=== PATIENT | female | born 1960 | race Caucasian/White ===

== ENCOUNTER 2021-09-01 11:41 | Emergency (ER) | payer OTHER, SELFPAY ==
--- NOTE | ~2021-09-01 | XR_ITS ---
EXAMINATION: XR CHEST CLINICAL INFORMATION: SOB. COMPARISON: Chest 11/24/2006 TECHNIQUE: Frontal view of the chest was obtained. FINDINGS: No significant abnormality is noted involving the heart, lungs, mediastinum, bony thorax or soft tissues. XR/XR chest 1V IMPRESSION: Unremarkable chest examination.
[2021-09-01 11:53] VITALS: BP 141/83; PULSE 91; RESP 16; TEMP 36.7; O2SAT 99; BMI 30.9
--- NOTE | 2021-09-01 13:40 | ED_ITS ---
HPI - SOB/Dyspnea General Chief Complaint: Upper Respiratory Symptoms <TANNER Salamanca - Last Filed: 09/01/21 18:21> Stated Complaint: diff breathing <TANNER Salamanca - Last Filed: 09/01/21 18:21> Time Seen by Provider: 09/01/21 13:30 <TANNER Salamanca - Last Filed: 09/01/21 18:21> Source: patient <TANNER Salamanca - Last Filed: 09/01/21 18:21> Mode of arrival: ambulatory <TANNER Salamanca - Last Filed: 09/01/21 18:21> Limitations: no limitations <TANNER Salamanca - Last Filed: 09/01/21 18:21> History of Present Illness HPI Narrative: 60-year-old female with history of bipolar disorder, active smoker 1ppd for 30+ years presenting to the ER with shortness of breath for last 3 days, worsening today. She also reports some chills as well. She feels like she is having an anxiety attack. She feels like she is wheezing and her breathing is loud. She uses 1 inhaler at home but does not know the name. She has never been diagnosed with asthma or COPD but she is a long-time smoker. She reports a dry cough with no production of phlegm. She has had no fevers but reports chills today. She is very anxious. She is vaccinated for COVID-19 with Paul and Paul shot back in January. <TANNER Salamanca - Last Filed: 09/01/21 18:21> elicited complaint: shortness of breath <TANNER Salamanca - Last Filed: 09/01/21 18:21> Pertinent past history: other (Active smoker with probable underlying COPD) <TANNER Salamanca - Last Filed: 09/01/21 18:21> Onset (ago): day(s) (3) <TANNER Salamanca - Last Filed: 09/01/21 18:21> Timing: constant <TANNER Salamanca - Last Filed: 09/01/21 18:21> Severity: severe <TANNER Salamanca - Last Filed: 09/01/21 18:21> Exacerbating factors: exertion <TANNER Salamanca Last Filed: 09/01/21 18:21> Relieving factors: upright position <TANNER Salamanca Last Filed: 09/01/21 18:21> Associated symptoms: cough, wheezing and chest congestion <TANNER Salamanca Last Filed: 09/01/21 18:21> Treatment prior to arrival: none <TANNER Salamanca Last Filed: 09/01/21 18:21> Related Data Home oxygen amount: none <TANNER Salamanca Last Filed: 09/01/21 18:21> Home Medications: Home Medications Medication Instructions Recorded Confirmed benztropine 0.5 mg tablet 0.5 mg PO DAILY 09/01/21 09/01/21 duloxetine 60 mg capsule,delayed 60 mg PO BID 09/01/21 09/01/21 release sprinkle lamotrigine 200 mg tablet 200 mg PO DAILY 09/01/21 09/01/21 trazodone 100 mg tablet 200 mg PO BEDTIME 09/01/21 09/01/21 Previous Rx's Medication Instructions Recorded albuterol sulfate 90 mcg/actuation 1 inh INHALATION QID PRN #6.7 g 09/01/21 aerosol inhaler amoxicillin 875 mg-potassium 1 tab PO BID #14 tab 09/01/21 clavulanate 125 mg tablet (Augmentin) lorazepam 1 mg tablet (Ativan) 1 mg PO BID PRN #5 tab 09/01/21 prednisone 10 mg tablets in a dose 10 mg PO PER PKG DIR #48 ea 09/01/21 pack <TANNER Salamanca Last Filed: 09/01/21 18:21> Allergies/Adverse Reactions: Allergies Allergy/AdvReac Type Severity Reaction Status Date / Time Unable to Assess Allergy Unverified 09/01/21 13:30 <TANNER Salamanca Last Filed: 09/01/21 18:21> Review of Systems Review of Systems: Constitutional: No Fever, No Chills ENT/Mouth: No sore throat, No Rhinorrhea, No Swallowing Difficulty Cardiovascular: No Chest Pain, + SOB, No Orthopnea, No Edema Respiratory: + Cough, No Sputum, + Wheezing, + dyspnea Gastrointestinal: No Nausea, No Vomiting, No Diarrhea, No abdominal Pain Genitourinary: No Dysuria, No Urinary Frequency, No Hematuria Musculoskeletal: No joint pain, No Myalgias Skin: No Skin Lesions, No rash Neuro: No Weakness, No Numbness, No Dizziness, No Headache Psych: + Anxiety/Panic, No Depression Heme/Lymph: No Bruising, No Lymphadenopathy Endocrine: No Polyuria, No Polydipsia <TANNER Salamanca - Last Filed: 09/01/21 18:21> [facility] Social History Social History: Social History Advance Directives: No Advance Directives Information Provided: No Patient : No <TANNER Salamanca - Last Filed: 09/01/21 18:21> Physical Exam Vital Signs: Vital Signs: Last Vital Signs Temp 98.0 F 09/01/21 11:53 Pulse 73 09/01/21 14:55 Resp 20 09/01/21 14:55 BP 141/83 H 09/01/21 11:53 Pulse Ox 99 09/01/21 11:53 BMI result Body Mass Index 30.9 <TANNER Salamanca - Last Filed: 09/01/21 18:21> Vital Signs: Last Vital Signs Temp 98.0 F 09/01/21 11:53 Pulse 73 09/01/21 14:55 Resp 20 09/01/21 14:55 BP 141/83 H 09/01/21 11:53 Pulse Ox 99 09/01/21 11:53 BMI result Body Mass Index 30.9 <Yasmani Osullivan MD - Last Filed: 09/21/21 07:02> Appearance: Alert. Oriented X3. Moderate acute distress, audible wheezing. Eyes: Pupils equal, round and reactive to light. ENT: Pharynx normal. Neck: Normal inspection. Neck supple. CVS: Normal heart rate and rhythm. Pulses normal. Respiratory: Moderate respiratory distress. Breath sounds with diffuse expiratory wheezes throughout, scattered rhonchi. Respiratory rate high 20s. Able to speak in 3-4 word sentences. Abdomen: Obses, Soft and nontender. +BS x4 Skin: Skin warm and dry. Normal skin color. Normal skin turgor. No rashes. Extremities: No lower extremity edema. No calf tenderness. Neuro: Oriented X 3. No motor deficit. No sensory deficit. <TANNER Salamanca - Last Filed: 09/01/21 18:21> Course Course Course Narrative: 60-year-old lady long-time smoker with history of bipolar and anxiety who presents to the ER with shortness of breath and wheezing for the last 3 days. On arrival she is tachypneic and having a difficult time breathing. She is anxious. She has diffuse wheezing throughout. Will give a dose of oral steroids and get respiratory to give her an hour long nebulizer treatment for bronchodilation. Chest x-ray is clear for no pneumonia and her COVID test is negative. Will reassess and monitor closely. She may require admission to the hospital if no improvement. <TANNER Salamanca Last Filed: 09/01/21 18:21> Reevaluation(s) Reevaluation #1: After the nebulizer treatment patient was very anxious and tremulous. She did not like the way the nebulizer made her feel. Her lung sounds have improved significantly but she is very anxious. Will give a dose of oral Ativan and reassess. Will get lab workup an EKG given she may require admission. <TANNER Salamanca Last Filed: 09/01/21 18:21> Reevaluation #2: Patient was able to rest after Ativan. Her breath sounds remain improved and she is no longer working to breathe. Her troponin is negative and BNP is normal. The rest of her labs are pending and likely hemolyzed. She does not want them to be redrawn. At this time she would like to be discharged home with oral therapy for presumed COPD exacerbation. She agrees to follow-up with her primary care doctor early next week and she was instructed to come back to the emergency room if she has return in her increased work of breathing. Patient expressed understanding and is stable for discharge home at this time. <TANNER Salamanca Last Filed: 09/01/21 18:21> MDM - SOB/Dyspnea Differential Diagnosis Differential diagnosis: Likely acute exacerbation of chronic obstructive airways disease, congestive heart failure, pneumonia, asthma with exacerbation, pulmonary embolism, pleural effusion, sleep apnea and anemia <TANNER Salamanca Last Filed: 09/01/21 18:21> Medical Records Attestation: I reviewed the patient's medical records. <TANNER Salamanca Last Filed: 09/01/21 18:21> Lab Data Attestation: I reviewed the patient's lab results. <TANNER Salamanca - Last Filed: 09/01/21 18:21> Result diagrams: : 09/01/21 16:36 09/01/21 16:36 <TANNER Salamanca - Last Filed: 09/01/21 18:21> Labs: Lab Results 09/01/21 09/01/21 09/01/21 Range/Units 13:48 16:36 16:36 WBC 10.3 (4.8-10.8) X10*3/uL RBC 6.00 H (4.20-5.50) X10*6/uL Hgb 12.8 (12.0-16.0) g/dl Hct 39.7 (37.0-47.0) % MCV 66.2 L (80.0-98.0) fL MCH 21.3 L (27.0-33.0) pg MCHC 32.2 (31.0-35.0) g/dl RDW 15.1 (11.0-16.0) % Plt Count 391 (160-400) X10*3/uL MPV 9.4 (9.4-12.3) fL Immature Gran % (Auto) 0.4 (0.0-0.4) % Neut % (Auto) 78.1 H (45-73) % Lymph % (Auto) 17.9 L (20-40) % [place] % (Auto) 3.0 (2-11) % Eos % (Auto) 0.2 (0-4) % Baso % (Auto) 0.4 (0-2) % Lymph # (Auto) 1.9 (1.2-4.9) X10*3/uL [place] # (Auto) 0.3 (0.1-1.2) X10*3/uL Eos # (Auto) 0.0 (0.0-0.4) X10*3/uL Baso # (Auto) 0.0 (0.0-0.2) X10*3/uL Abs Immat Gran (auto) 0.04 H (0.00-0.03) X10*3/uL Absolute Neuts (auto) 8.1 (2.0-8.3) x10*3/uL Absolute Nucleated RBC 0.000 (0.0-0.012) X10*3/uL Nucleated RBC % (auto) 0.0 (0.0-0.2) /100WBC Sodium Cancelled Potassium Cancelled Chloride Cancelled Carbon Dioxide Cancelled Anion Gap Cancelled BUN Cancelled Creatinine Cancelled Estim Creat Clear Calc Cancelled Estimated GFR Cancelled Random Glucose Cancelled Calcium Cancelled Magnesium Cancelled Total Bilirubin Cancelled Direct Bilirubin Cancelled AST Cancelled ALT Cancelled Alkaline Phosphatase Cancelled Troponin I High Sens (<3.5-17.0) ng/L B-Natriuretic Peptide (<100) pg/mL Total Protein Cancelled Albumin Cancelled COVID-19 (YULISSA) Negative (Negative) COVID-19 Clin Com See Note 09/01/21 Range/Units 16:36 WBC (4.8-10.8) X10*3/uL RBC (4.20-5.50) X10*6/uL Hgb (12.0-16.0) g/dl Hct (37.0-47.0) % MCV (80.0-98.0) fL MCH (27.0-33.0) pg MCHC (31.0-35.0) g/dl RDW (11.0-16.0) % Plt Count (160-400) X10*3/uL MPV (9.4-12.3) fL Immature Gran % (Auto) (0.0-0.4) % Neut % (Auto) (45-73) % Lymph % (Auto) (20-40) % [place] % (Auto) (2-11) % Eos % (Auto) (0-4) % Baso % (Auto) (0-2) % Lymph # (Auto) (1.2-4.9) X10*3/uL [place] # (Auto) (0.1-1.2) X10*3/uL Eos # (Auto) (0.0-0.4) X10*3/uL Baso # (Auto) (0.0-0.2) X10*3/uL Abs Immat Gran (auto) (0.00-0.03) X10*3/uL Absolute Neuts (auto) (2.0-8.3) x10*3/uL Absolute Nucleated RBC (0.0-0.012) X10*3/uL Nucleated RBC % (auto) (0.0-0.2) /100WBC Sodium Potassium Chloride Carbon Dioxide Anion Gap BUN Creatinine Estim Creat Clear Calc Estimated GFR Random Glucose Calcium Magnesium Total Bilirubin Direct Bilirubin AST ALT Alkaline Phosphatase Troponin I High Sens < 3.5 (<3.5-17.0) ng/L B-Natriuretic Peptide 22 (<100) pg/mL Total Protein Albumin COVID-19 (YULISSA) (Negative) COVID-19 Clin Com <TANNER Salamanca - Last Filed: 09/01/21 18:21> Lab Results 09/01/21 09/01/21 09/01/21 Range/Units 13:48 16:36 16:36 WBC 10.3 (4.8-10.8) X10*3/uL RBC 6.00 H (4.20-5.50) X10*6/uL Hgb 12.8 (12.0-16.0) g/dl Hct 39.7 (37.0-47.0) % MCV 66.2 L (80.0-98.0) fL MCH 21.3 L (27.0-33.0) pg MCHC 32.2 (31.0-35.0) g/dl RDW 15.1 (11.0-16.0) % Plt Count 391 (160-400) X10*3/uL MPV 9.4 (9.4-12.3) fL Immature Gran % (Auto) 0.4 (0.0-0.4) % Neut % (Auto) 78.1 H (45-73) % Lymph % (Auto) 17.9 L (20-40) % [place] % (Auto) 3.0 (2-11) % Eos % (Auto) 0.2 (0-4) % Baso % (Auto) 0.4 (0-2) % Lymph # (Auto) 1.9 (1.2-4.9) X10*3/uL [place] # (Auto) 0.3 (0.1-1.2) X10*3/uL Eos # (Auto) 0.0 (0.0-0.4) X10*3/uL Baso # (Auto) 0.0 (0.0-0.2) X10*3/uL Abs Immat Gran (auto) 0.04 H (0.00-0.03) X10*3/uL Absolute Neuts (auto) 8.1 (2.0-8.3) x10*3/uL Absolute Nucleated RBC 0.000 (0.0-0.012) X10*3/uL Nucleated RBC % (auto) 0.0 (0.0-0.2) /100WBC Sodium Cancelled Potassium Cancelled Chloride Cancelled Carbon Dioxide Cancelled Anion Gap Cancelled BUN Cancelled Creatinine Cancelled Estim Creat Clear Calc Cancelled Estimated GFR Cancelled Random Glucose Cancelled Calcium Cancelled Magnesium Cancelled Total Bilirubin Cancelled Direct Bilirubin Cancelled AST Cancelled ALT Cancelled Alkaline Phosphatase Cancelled Troponin I High Sens (<3.5-17.0) ng/L B-Natriuretic Peptide (<100) pg/mL Total Protein Cancelled Albumin Cancelled COVID-19 (YULISSA) Negative (Negative) COVID-19 Clin Com See Note 09/01/21 Range/Units 16:36 WBC (4.8-10.8) X10*3/uL RBC (4.20-5.50) X10*6/uL Hgb (12.0-16.0) g/dl Hct (37.0-47.0) % MCV (80.0-98.0) fL MCH (27.0-33.0) pg MCHC (31.0-35.0) g/dl RDW (11.0-16.0) % Plt Count (160-400) X10*3/uL MPV (9.4-12.3) fL Immature Gran % (Auto) (0.0-0.4) % Neut % (Auto) (45-73) % Lymph % (Auto) (20-40) % [place] % (Auto) (2-11) % Eos % (Auto) (0-4) % Baso % (Auto) (0-2) % Lymph # (Auto) (1.2-4.9) X10*3/uL [place] # (Auto) (0.1-1.2) X10*3/uL Eos # (Auto) (0.0-0.4) X10*3/uL Baso # (Auto) (0.0-0.2) X10*3/uL Abs Immat Gran (auto) (0.00-0.03) X10*3/uL Absolute Neuts (auto) (2.0-8.3) x10*3/uL Absolute Nucleated RBC (0.0-0.012) X10*3/uL Nucleated RBC % (auto) (0.0-0.2) /100WBC Sodium Potassium Chloride Carbon Dioxide Anion Gap BUN Creatinine Estim Creat Clear Calc Estimated GFR Random Glucose Calcium Magnesium Total Bilirubin Direct Bilirubin AST ALT Alkaline Phosphatase Troponin I High Sens < 3.5 (<3.5-17.0) ng/L B-Natriuretic Peptide 22 (<100) pg/mL Total Protein Albumin COVID-19 (YULISSA) (Negative) COVID-19 Clin Com <Yasmani Osullivan MD - Last Filed: 09/21/21 07:02> ECG Data Attestation: I personally reviewed and interpreted this ECG as follows: <TANNER Salamanca - Last Filed: 09/01/21 18:21> ECG interpretation date: 09/01/21 <TANNER Salamanca - Last Filed: 09/01/21 18:21> ECG interpretation time: 18:17 <TANNER Salamanca - Last Filed: 09/01/21 18:21> Interpretation: Normal sinus rhythm, heart rate 99 beats per minute, normal IA interval, poor R-wave progression, low voltage QRS, Q-waves present in leads 3 and AVF. Prolonged QTC 508 MS, no ST segment elevations or depressions. No STEMI <TANNER Salamanca - Last Filed: 09/01/21 18:21> Critical Care Time Critical Care Time Critical Care Time: Yes <TANNER Salamanca - Last Filed: 09/01/21 18:21> Total Critical Care Time: 36 <TANNER Salamanca - Last Filed: 09/01/21 18:21> Attestation: I have personally provided critical care time exclusive of time spent on separately billable procedures. Time includes review of lab data, radiology results, frequent bedside reassessments, and monitoring for potential decompensation. Intervention performed as documented. <TANNER Salamanca - Last Filed: 09/01/21 18:21> Discharge Plan Discharge Clinical Impression: Bronchitis <TANNER Salamanca Last Filed: 09/01/21 18:21> Patient Disposition: Home, Self-Care <TANNER Salamanca Last Filed: 09/01/21 18:21> Instructions: Acute Bronchitis (ED), COPD (Chronic Obstructive Pulmonary Disease) (ED) <TANNER Salamanca Last Filed: 09/01/21 18:21> Additional Instructions: Your chest x-ray did not show any evidence of pneumonia. You were negative for COVID-19. Your lab workup was reassuring. Your being treated for bronchitis and acute COPD exacerbation. Take the prescribed steroids as directed, 1st dose starting tomorrow. Complete the entire course. Recommend using albuterol inhaler 2 pumps every 2-4 hours while your acutely ill. Recommend [id number] Mucinex 1200 mg 2 times a day for the next 5 days. Rest and stay hydrated. Follow up with your doctor early next week. If you develop new or worsening symptoms call 911 or come back to the ER for further evaluation. <TANNER Salamanca Last Filed: 09/01/21 18:21> Prescriptions: New prednisone 10 mg tablets,dose pack 10 mg PO PER PKG DIR Qty: 48 RF: 0 amoxicillin-pot clavulanate [Augmentin] 875-125 mg tablet 1 tab PO BID Qty: 14 RF: 0 lorazepam [Ativan] 1 mg tablet 1 mg PO BID PRN (Reason: anxiety) Qty: 5 RF: 0 albuterol sulfate 90 mcg/actuation HFA aerosol inhaler 1 inh inhalation QID PRN (Reason: shortness of breath or wheezing) Qty: 6.7 RF: 0 No Action benztropine 0.5 mg Tablet 0.5 mg PO DAILY RF: 0 lamotrigine 200 mg Tablet 200 mg PO DAILY RF: 0 duloxetine 60 mg Capsule, Delayed Rel Sprinkle 60 mg PO BID RF: 0 trazodone 100 mg Tablet 200 mg PO BEDTIME RF: 0 <TANNER Salamanca Last Filed: 09/01/21 18:21> Referrals: Daljit Irby MD [Primary Care Provider] - 3 days (f/u COPD exacerbation) <TANNER Salamanca Last Filed: 09/01/21 18:21> Stand Alone Forms: Work/School Release <TANNER Salamanca - Last Filed: 09/01/21 18:21> Interventions: ED Discharge Assessment Last Done: 09/01/21 18:53 <TANNER Salamanca - Last Filed: 09/01/21 18:21> Discharge Date/Time: 09/01/21 18:55 <TANNER Salamanca - Last Filed: 09/01/21 18:21>
[2021-09-01 14:08] LABS: COVID-19 Test Negative (Negative)
[2021-09-01] MEDS: predniSONE 20 MG TABLET 60 MG PO (14:31)
[2021-09-01] MEDS: Albuterol Sulfate (0.083%) 2.5 MG/3 ML VIAL.NEB 10 MG INHALE (14:54)
[2021-09-01 14:55] VITALS: PULSE 73; RESP 20; O2SAT 99
--- NOTE | 2021-09-01 16:06 | ECG_ITS ---
Test Reason : SOB Blood Pressure : / mmHG Vent. Rate : 099 BPM Atrial Rate : 099 BPM P-R Int : 144 ms QRS Dur : 090 ms QT Int : 396 ms P-R-T Axes : 037 -02 059 degrees QTc Int : 508 ms Normal sinus rhythm Low voltage QRS Inferior infarct , age undetermined Cannot rule out Anterior infarct , age undetermined Prolonged QT Abnormal ECG No previous ECGs available Referred By: Eden Adan Electronically Signed By:Norman Montoya
[2021-09-01] MEDS: LORazepam 1 MG TABLET PO (16:18)
--- NOTE | 2021-09-01 16:27 | PHA.MEDREC ---
med rec complete, patient provided list of medications, unable to confirm with patients stated pharmacy. [facility] did not have a history of filling her meds Pharmacy Consult ? Medication Reconciliation Pharmacy has completed the medication reconciliation.
[2021-09-01 16:42] LABS: MANUAL DIFF FLAG NO
[2021-09-01 16:49] LABS: Basophils Percent Auto 0.4 % (0-2); Eosinophils Percent Auto 0.2 % (0-4); Hematocrit 39.7 % (37.0-47.0); Hemoglobin 12.8 g/dl (12.0-16.0); Imm Gran Abs Auto 0.04 X10*3/uL (0.00-0.03); Imm Gran Pct Auto 0.4 % (0.0-0.4); Lymphocytes Absolute Auto 1.9 X10*3/uL (1.2-4.9); Lymphocytes Percent Auto 17.9 % (20-40); Mean Corpuscular HGB Conc 32.2 g/dl (31.0-35.0); Mean Corpuscular Hemoglobin 21.3 pg (27.0-33.0); Mean Corpuscular Volume 66.2 fL (80.0-98.0); Mean Platelet Volume 9.4 fL (9.4-12.3); Monocytes Absolute Auto 0.3 X10*3/uL (0.1-1.2); Neutrophils Absolute Auto 8.1 x10*3/uL (2.0-8.3); Neutrophils Percent Auto 78.1 % (45-73); Platelet Count 391 X10*3/uL (160-400); Red Cell Distribution Width 15.1 % (11.0-16.0); White Blood Count 10.3 X10*3/uL (4.8-10.8)
[2021-09-01 17:12] LABS: B Type Natriuretic Peptide 22 pg/mL (<100); Troponin-I High Sensitivity < 3.5 ng/L (<3.5-17.0)
== END 2021-09-01 18:55 | disposition home or self-care (01) ==
PROVIDERS: Physician Assistant; Emergency Provider Emergency Medicine; PCP Internal Medicine
DX: J40 Bronchitis, not specified as acute or chronic (principal); R06.02 Shortness of breath; R05.9 Cough, unspecified; F17.210 Nicotine dependence, cigarettes, uncomplicated; F41.9 Anxiety disorder, unspecified; Z20.822 Contact with and (suspected) exposure to COVID-19; Z71.6 Tobacco abuse counseling; Z79.899 Other long term (current) drug therapy
CPT/HCPCS: 36415; 71045; 83880; 84484; 85025; 87635; 93005; 94640; 94644; 99284; 99291

== ENCOUNTER 2021-09-23 13:07 | Inpatient (IN) | payer MEDICAID, SELFPAY ==
[2021-09-23] VITALS (10 sets, daily range): BP systolic 99–144; BP diastolic 51–72; PULSE 94–144; RESP 17–40; TEMP 36.5–37.1; O2SAT 94–100; BMI 32.0
--- NOTE | 2021-09-23 | ECG_ITS ---
Test Reason : tacycardia Blood Pressure : / mmHG Vent. Rate : 122 BPM Atrial Rate : 122 BPM P-R Int : 140 ms QRS Dur : 082 ms QT Int : 332 ms P-R-T Axes : 059 030 049 degrees QTc Int : 473 ms Sinus tachycardia Otherwise normal ECG When compared with ECG of 01-SEP-2021 16:27, Minimal criteria for Anterior infarct are no longer Present Criteria for Inferior infarct are no longer Present Referred By: Generic ED Physician Electronically Signed By:RODGER DAHL MD
--- NOTE | ~2021-09-23 | XR_ITS ---
EXAMINATION: XR chest 1V CLINICAL INFORMATION: Shortness of breath COMPARISON: 09/01/2021 TECHNIQUE: XR chest 1V Tubes and lines: None Lungs and pleura: Both lungs are clear. Heart and mediastinum: The mediastinum is within normal limits.. Bones/soft tissue: Skeletal structures included are normal for patient's age. XR/XR chest 1V IMPRESSION: No radiographic evidence of acute cardiopulmonary disease.
--- NOTE | ~2021-09-23 | MR_ITS ---
EXAMINATION: MR PELVIS WITHOUT AND WITH CONTRAST CLINICAL INFORMATION: Pelvic mass. COMPARISON: Previous CT 09/23/2020 TECHNIQUE: Sagittal, axial and coronal sequences through the pelvis with and without contrast. The patient received 7.5 mL Gadavist intravenous contrast. FINDINGS: The uterus is not identified and has presumably been removed. Neither ovary is identified with certainty. There is question of identification of the left ovary seen on image 20 series 10 postcontrast. There is a large slightly lobulated pelvic mass. This measures 12.7 x 9.8 x 11.5 cm in AP, transverse and longitudinal dimension. This is intermediate signal on T1-weighted sequences, heterogeneous but predominantly low signal on T2-weighted sequences and demonstrates no appreciable enhancement. Neither ovary is identified with certainty. The bladder is not optimally distended but appears unremarkable. There is a small amount of ascites in the pelvis. No adenopathy is seen. There are postsurgical changes to the lower anterior abdominal wall. There are small bilateral inguinal hernias containing fat. There is mild diverticulosis of the colon. The visualized bowel is otherwise unremarkable. The visualized vascular structures are unremarkable. There is degenerative disc disease of the lower lumbar spine. MR/MR pelvis wo/w con IMPRESSION: Large slightly lobulated heterogeneous nonenhancing pelvic mass. The uterus appears to have been removed, and neither ovary is identified with certainty. This does not appear to be associated with the bowel or bladder. Differential would include ovarian fibroma or thecoma, metastatic disease, desmoid or other primary soft tissue tumor and GI stromal tumor. Small amount of ascites.
--- NOTE | ~2021-09-23 | CT_ITS ---
EXAMINATION: CT ABDOMEN AND PELVIS WITHOUT CONTRAST CLINICAL INFORMATION: GI bleed COMPARISON: None TECHNIQUE: Multidetector volumetric imaging was performed from the superior aspect of the liver through the pubic symphysis. Sagittal and coronal reformatted images were obtained on the technologist's workstation. This CT examination was performed using dose optimization techniques as appropriate, variously including the following: *Automated exposure control *Adjustment of mA and/or kV according to patient size (this includes techniques or standardized protocols for targeted exams where dose is matched to indication/reason for exam; i.e. extremities or head) *Use of iterative reconstruction technique DLP: 542 mGy-cm FINDINGS: LUNG BASES: The visualized lung bases are unremarkable. LIVER, GALLBLADDER, AND BILIARY TREE: The liver is normal in size, shape, and attenuation. No focal hepatic lesion or biliary ductal dilatation is present. The gallbladder is unremarkable with no evidence of radiopaque gallstones, gallbladder wall thickening, or obvious pericholecystic inflammatory changes. PANCREAS: Unremarkable. SPLEEN: Unremarkable. ADRENAL GLANDS: 2.1 x 1.5 cm low-density left adrenal nodule, density -2 Hounsfield units, consistent with a benign lipid rich adrenal adenoma. There is a 3 mm calcification within the nodule. There is a 1.7 x 1.3 cm right adrenal nodule measuring -12 Hounsfield units, consistent with a lipid rich adrenal adenoma as well. KIDNEYS AND URETERS: The kidneys are normal in size, shape, and attenuation. No hydronephrosis, hydroureter, or calculi seen. No perinephric stranding. BLADDER: Normal. GASTROINTESTINAL TRACT: Stomach and small bowel are nondilated. Normal appendix. Scattered colonic diverticulosis. No evidence of colitis or diverticulitis. There is some wall thickening of the proximal sigmoid colon, is commensurate with the degree of underdistention. ABDOMINAL WALL: Postoperative changes of the anterior pelvic wall. LYMPH NODES: Normal. VASCULAR: Normal caliber aorta. Moderate nearly circumferential calcified atherosclerotic changes. PELVIC VISCERA: There is a lobular soft tissue mass in the pelvis measuring 12.3 x 9.8 x 7.9 cm. Uterus not definitely seen. The mass does not clearly communicate with the vagina suggesting the uterus is surgically absent. Neither ovary definitely seen. OSSEOUS STRUCTURES: Multilevel degenerative changes of the thoracolumbar spine. Grade 1 anterolisthesis of L4 on L5. CT/CT abdomen pelvis wo con IMPRESSION: No acute abnormality of the colon. No evidence of colitis or diverticulitis. 12.3 cm lobular soft tissue mass is seen in the pelvis, cephalad to the bladder. The uterus is not definitely seen nor is either ovary. The mass is of uncertain etiology, possibly adnexal. If the patient has not had a prior hysterectomy this could represent a myomatous uterus although it appears to be separate from the vaginal apex. Recommend correlation with history. Gynecologic consultation may be helpful to guide further management, for example MRI of the pelvis. Bilateral benign lipid rich adrenal adenomata; no imaging follow-up recommended. Fleischner guidelines were followed.
[2021-09-23 13:41] LABS: MANUAL DIFF FLAG NO
[2021-09-23 13:47] LABS: Basophils Absolute Auto 0.1 X10*3/uL (0.0-0.2); Basophils Percent Auto 0.5 % (0-2); Eosinophils Percent Auto 0.1 % (0-4); Imm Gran Abs Auto 0.05 X10*3/uL (0.00-0.03); Imm Gran Pct Auto 0.4 % (0.0-0.4); Lymphocytes Absolute Auto 2.5 X10*3/uL (1.2-4.9); Lymphocytes Percent Auto 20.2 % (20-40); Mean Corpuscular HGB Conc 31.7 g/dl (31.0-35.0); Mean Corpuscular Hemoglobin 21.3 pg (27.0-33.0); Mean Corpuscular Volume 67.4 fL (80.0-98.0); Mean Platelet Volume 9.6 fL (9.4-12.3); Monocytes Absolute Auto 0.7 X10*3/uL (0.1-1.2); Monocytes Percent Auto 5.4 % (2-11); NRBC Pct Auto 0.2 /100WBC (0.0-0.2); Neutrophils Percent Auto 73.4 % (45-73); Platelet Count 425 X10*3/uL (160-400); Red Blood Count 3.56 X10*6/uL (4.20-5.50); Red Cell Distribution Width 15.4 % (11.0-16.0); White Blood Count 12.3 X10*3/uL (4.8-10.8)
--- NOTE | 2021-09-23 13:50 | ED.SOB ---
HPI - SOB/Dyspnea General Chief Complaint: Dyspnea Stated Complaint: dif breathing SOB Time Seen by Provider: 09/23/21 13:46 Source: patient Mode of arrival: ambulatory Limitations: no limitations History of Present Illness HPI Narrative: 60-year-old female with history of long-time smoking, presented today for increased shortness of breath and feeling anxious. Symptoms started 3 days ago, described as constant, no chest pain association with shortness of breath, shortness of breath is worsening with exertion, but improved with rest. Patient also reported that she is going through tough time of financial issue that might trigger her anxiety. Do not have official diagnosis of COPD/asthma however patient presented with exactly similar presentation 2 weeks ago to the ED patient improved with bronchodilator and steroid and some Ativan helping her anxiety. Patient declined any fever, no sick contact, no recent travel. Related Data Home Medications Medication Instructions Recorded Confirmed benztropine 0.5 mg tablet 1 mg PO BEDTIME 09/01/21 09/23/21 duloxetine 60 mg capsule,delayed 60 mg PO BID 09/01/21 09/23/21 release sprinkle lamotrigine 200 mg tablet 200 mg PO BEDTIME 09/01/21 09/23/21 trazodone 100 mg tablet 100 mg PO BEDTIME 09/01/21 09/23/21 benztropine 0.5 mg tablet 0.5 mg PO DAILY 09/23/21 09/23/21 risperidone 4 mg tablet (Risperdal) 6 mg PO BEDTIME 09/23/21 09/23/21 Previous Rx's Medication Instructions Recorded albuterol sulfate 90 mcg/actuation 1 inh INHALATION QID PRN #6.7 g 09/01/21 aerosol inhaler Allergies Allergy/AdvReac Type Severity Reaction Status Date / Time No Known Allergies Allergy Verified 09/23/21 13:19 Review of Systems Review of Systems: All other systems are reviewed and are negative Constitutional: Reports as per HPI and Reports no additional constitutional complaints Eyes: Reports as per HPI and Reports no additional eye complaints Reports system reviewed and no additional complaints, except as documented Cardiovascular: Reports as per HPI and Reports no additional cardiovascular complaints Respiratory: Reports as per HPI and Reports no additional respiratory complaints Gastrointestinal: Reports as per HPI and Reports no additional gastrointestinal complaints Genitourinary: Reports no additional female genitourinary complaints Musculoskeletal: Reports no additional musculoskeletal complaints Skin/Breast: Reports system reviewed and no additional complaints, except as docu Psychiatric: Reports no additional psychiatric complaints Endocrine: Reports no additional endocrine complaints Hematologic/Lymphatic: Reports no additional hematologic/lymphatic complaints Allergic/Immunologic: Reports no additional allergic/immunologic complaints Reports system reviewed and no additional complaints, except as documented and Reports Abnormal speech present [facility] Past Medical History Medical History COPD (chronic obstructive pulmonary disease) Social History Social History Advance Directives: Yes Advance Directives Information Provided: Yes Advance Directives on File: No Physical Exam Vital Signs: Vital Signs: Last Vital Signs Temp 97.7 F 09/23/21 13:19 Pulse 99 09/23/21 14:23 Resp 18 09/23/21 14:23 BP 99/60 09/23/21 13:19 Pulse Ox 100 09/23/21 13:19 BMI result Body Mass Index 32.0 Vital signs have been reviewed as appeared to be correct. Blood pressure normal. Heart rate elevated. Respiration rate elevated Temperature normal. Oxygen saturation normal. Appearance: Alert. Oriented X3. Mild respiratory acute distress. Head: Normal external exam. Normocephalic. Atraumatic. No [place] signs noted. No raccoon eyes noted Eyes: PERRLA. EOMI. Conjunctiva and sclera normal. Eyelids normal. ENT: TM's Normal. Pharynx normal. Uvula midline. Moist mucous membranes. No trismus noted. No drooling noted. No muffled voice noted. Neck: Normal inspection. Neck supple. FROM. No adenopathy. Thyroid Normal. No meningeal signs. No neck mass noted. CVS: Normal heart rate and rhythm. Heart sound normal. No murmurs noted. Pulses normal throughout. Respiratory: Mild respiratory distress. Painless inspiration. Breath sounds normal. Diffuse mild bilateral expiratory wheezing with prolonged expiration. nontender. No accessory muscle usage noted or decreased air movement noted. Abdomen: Soft and nontender. Bowel sounds normal in all 4 quadrants. No distention noted. No organomegaly noted. No visible injury noted. Rectal exam: Melena Back: No CVA tenderness. Full range of motion noted. Skin: Skin warm and dry. Normal skin color. Normal skin turgor. No rashes/lesions/lacerations noted. Extremities: No lower extremity edema. Extremities exhibit normal range of motion. Extremities nontender. Neuro: Oriented X 3. Cranial nerve exam: II-XII are grossly intact No motor deficit. No sensory deficit. Reflexes normal. Course Course Course Narrative: Assessment and plan. 60-year-old female history of long time smoking, physical exam and presentation is consistent with wheezing whether acute bronchitis/COPD patient initially presented with acute respiratory distress is improving with bronchodilator and Solu-Medrol and magnesium. Because patient meet criteria for SIRS culture and lactic acid were sent and will start the patient on Levaquin. Patient needs hospitalization. Patient dropped about 5 units of hemoglobin since last visit, rectal exam is showing melena, will transfuse 2 units of blood. Leukocytosis, tachypnea, tachycardia, with lactic acidosis of 4.5 and light acute COPD exacerbation patient meet criteria for severe sepsis, patient received 30 cc/kg ideal body weight normal saline and Levaquin. MDM - SOB/Dyspnea Lab Data Attestation: I reviewed the patient's lab results. Result diagrams: 09/23/21 13:36 09/23/21 13:35 Labs: Lab Results 09/23/21 09/23/21 09/23/21 Range/Units 13:28 13:29 13:35 WBC (4.8-10.8) X10*3/uL RBC (4.20-5.50) X10*6/uL Hgb (12.0-16.0) g/dl Hct (37.0-47.0) % MCV (80.0-98.0) fL MCH (27.0-33.0) pg MCHC (31.0-35.0) g/dl RDW (11.0-16.0) % Plt Count (160-400) X10*3/uL MPV (9.4-12.3) fL Immature Gran % (Auto) (0.0-0.4) % Neut % (Auto) (45-73) % Lymph % (Auto) (20-40) % [place] % (Auto) (2-11) % Eos % (Auto) (0-4) % Baso % (Auto) (0-2) % Lymph # (Auto) (1.2-4.9) X10*3/uL [place] # (Auto) (0.1-1.2) X10*3/uL Eos # (Auto) (0.0-0.4) X10*3/uL Baso # (Auto) (0.0-0.2) X10*3/uL Abs Immat Gran (auto) (0.00-0.03) X10*3/uL Absolute Neuts (auto) (2.0-8.3) x10*3/uL Absolute Nucleated RBC (0.0-0.012) X10*3/uL Nucleated RBC % (auto) (0.0-0.2) /100WBC Sodium 140 (135-145) mmol/L Potassium 3.8 (3.3-5.1) mmol/L Chloride 113 H (96-108) mmol/L Carbon Dioxide 15 L (22-29) mmol/L Anion Gap 16 (12-20) BUN 25 H (9-16) mg/dL Creatinine 1.05 (0.5-1.4) mg/dL Estim Creat Clear Calc 56.3 Estimated GFR 54 POC Glucose 137 H (60-115) mg/dL Random Glucose 137 H (60-115) mg/dL Lactic Acid (0.5-2.0) mmol/L Calcium 9.0 (8.4-10.2) mg/dL Total Bilirubin 0.6 (0.0-1.0) mg/dL AST 8 (5-31) U/L ALT 6 (0-31) U/L Alkaline Phosphatase 55 (39-117) U/L Troponin I High Sens (<3.5-17.0) ng/L B-Natriuretic Peptide (<100) pg/mL Total Protein 6.0 L (6.5-8.0) g/dL Albumin 3.7 (3.5-5.0) g/dL COVID-19 (YULISSA) Negative (Negative) COVID-19 Clin Com See Note 09/23/21 09/23/21 09/23/21 Range/Units 13:35 13:36 14:52 WBC 12.3 H (4.8-10.8) X10*3/uL RBC 3.56 L D (4.20-5.50) X10*6/uL Hgb 7.6 L D (12.0-16.0) g/dl Hct 24.0 L D (37.0-47.0) % MCV 67.4 L (80.0-98.0) fL MCH 21.3 L (27.0-33.0) pg MCHC 31.7 (31.0-35.0) g/dl RDW 15.4 (11.0-16.0) % Plt Count 425 H (160-400) X10*3/uL MPV 9.6 (9.4-12.3) fL Immature Gran % (Auto) 0.4 (0.0-0.4) % Neut % (Auto) 73.4 H (45-73) % Lymph % (Auto) 20.2 (20-40) % [place] % (Auto) 5.4 (2-11) % Eos % (Auto) 0.1 (0-4) % Baso % (Auto) 0.5 (0-2) % Lymph # (Auto) 2.5 (1.2-4.9) X10*3/uL [place] # (Auto) 0.7 (0.1-1.2) X10*3/uL Eos # (Auto) 0.0 (0.0-0.4) X10*3/uL Baso # (Auto) 0.1 (0.0-0.2) X10*3/uL Abs Immat Gran (auto) 0.05 H (0.00-0.03) X10*3/uL Absolute Neuts (auto) 9.0 H (2.0-8.3) x10*3/uL Absolute Nucleated RBC 0.020 H (0.0-0.012) X10*3/uL Nucleated RBC % (auto) 0.2 (0.0-0.2) /100WBC Sodium (135-145) mmol/L Potassium (3.3-5.1) mmol/L Chloride (96-108) mmol/L Carbon Dioxide (22-29) mmol/L Anion Gap (12-20) BUN (9-16) mg/dL Creatinine (0.5-1.4) mg/dL Estim Creat Clear Calc Estimated GFR POC Glucose (60-115) mg/dL Random Glucose (60-115) mg/dL Lactic Acid 4.5 H* (0.5-2.0) mmol/L Calcium (8.4-10.2) mg/dL Total Bilirubin (0.0-1.0) mg/dL AST (5-31) U/L ALT (0-31) U/L Alkaline Phosphatase (39-117) U/L Troponin I High Sens 4.4 (<3.5-17.0) ng/L B-Natriuretic Peptide 16 (<100) pg/mL Total Protein (6.5-8.0) g/dL Albumin (3.5-5.0) g/dL COVID-19 (YULISSA) (Negative) COVID-19 Clin Com Imaging Data Chest x-ray: Attestation: I personally reviewed and interpreted this imaging study as follows: Radiologist's impression: No radiographic evidence of acute cardiopulmonary disease. Critical Care Time Critical Care Time Critical Care Time: Yes Total Critical Care Time: 60 Attestation: I spent 60 minutes providing critical care service to the patient, this including time spent at the bedside to evaluate the patient, reassess the patient, monitoring vital signs, review labs, and radiographic studies, counseling the patient/family, discussing the case with consultants, disposition the patient. Discharge Plan Discharge Clinical Impression: Severe sepsis, Anemia, Melena Patient Disposition: Admitted As Inpatient Prescriptions: No Action benztropine 0.5 mg Tablet 0.5 mg PO DAILY RF: 0 risperidone [Risperdal] 4 mg Tablet 6 mg PO BEDTIME RF: 0 benztropine 0.5 mg Tablet 1 mg PO BEDTIME RF: 0 lamotrigine 200 mg Tablet 200 mg PO BEDTIME RF: 0 duloxetine 60 mg Capsule, Delayed Rel Sprinkle 60 mg PO BID RF: 0 trazodone 100 mg Tablet 100 mg PO BEDTIME RF: 0 albuterol sulfate 90 mcg/actuation HFA aerosol inhaler 1 inh inhalation QID PRN (Reason: shortness of breath or wheezing) Qty: 6.7 RF: 0
[2021-09-23 13:52] LABS: COVID-19 Test Negative (Negative); IDNOW Serial# 08D9AD1C
[2021-09-23 13:55] LABS: Alanine Aminotransferase 6 U/L (0-31); Albumin Level 3.7 g/dL (3.5-5.0); Alkaline Phosphatase 55 U/L (39-117); Anion Gap 16 (12-20); Aspartate Amino Transferase 8 U/L (5-31); Bilirubin Total 0.6 mg/dL (0.0-1.0); Blood Urea Nitrogen 25 mg/dL (9-16); Carbon Dioxide 15 mmol/L (22-29); Chloride 113 mmol/L (96-108); Creatinine Clr Calc Pharmacy 56.3; Estimated Glomerular Filt Rate 54; Glucose Random 137 mg/dL (60-115); Potassium 3.8 mmol/L (3.3-5.1); Sodium 140 mmol/L (135-145)
[2021-09-23 13:57] LABS: Hemoglobin 7.6 g/dl (12.0-16.0)
[2021-09-23 14:01] LABS: B Type Natriuretic Peptide 16 pg/mL (<100); Troponin-I High Sensitivity 4.4 ng/L (<3.5-17.0)
[2021-09-23] MEDS: methylPREDNISolone Sod Succ 125 MG/2 ML VIAL IVPUSH (14:15)
[2021-09-23] MEDS: LORazepam 1 MG TABLET PO ×2 (14:15→21:55)
[2021-09-23] MEDS: Magnesium Sulfate/H2O 2 GM/50 ML PIGGYBACK IV (14:15)
[2021-09-23] MEDS: Albuterol/Iprat 2.5/0.5MG 3 ML AMPUL.NEB INHALE (14:22)
[2021-09-23] MEDS: Albuterol Sulfate (0.083%) 2.5 MG/3 ML VIAL.NEB 5 MG INHALE (14:22)
--- NOTE | 2021-09-23 14:35 | PHA.MEDREC ---
Pharmacy Consult ? Medication Reconciliation Pharmacy has completed the medication reconciliation. Spoke with patient in ED and called [facility] pharmacy.
[2021-09-23 14:45] LABS: Glucose, Whole Blood 137 mg/dL (60-115)
[2021-09-23 15:14] LABS: Lactic Acid 4.5 mmol/L (0.5-2.0)
[2021-09-23 15:21] LABS: OBS Int Ctl Valid YES; OBS1 POSITIVE (NEGATIVE)
[2021-09-23] MEDS: levoFLOXacin/D5W 750 MG/150 ML PIGGYBACK 100 MG IV (15:40)
--- NOTE | 2021-09-23 16:27 | PM.EVENT ---
Event Note Date of Service: 09/23/21 Event Note: Patient came to the hospital because of severe anxiety, short of breath actually she is hyperventilating when we saw the patient and very anxious, she does not noticed any neal blood in the stool or the did not vomit any blood either, she was she was treated for presumed bronchitis acute and COPD. She was sent with the p.o. prednisone and Augmentin at home, she also takes baby aspirin at home and also ibuprofen. patient denies any nausea vomiting or abdominal pain or fever chills or cough or phlegm. she says that she is progressively getting short of breath and with severe anxiety it was getting more worse. But when she tried to sleep then feels better otherwise could able to answer questions with full sentences but seems very panic. lab imaging reviewed her H&H is 7.6, WBC count is 12.3 chest x-ray seems fine occult blood positive will add CT abdomen plain since patient does not have any abdominal symptoms lactic acidosis- seems more likely related to anemia/ GI bleed/ also dehydration, Nebs. Patient in ED: Thought to be acute bronchitis and met SIRS criteria -patient was given 30 cc bolus antibiotics. Blood cultures sent. assessment and plan: 1. Anemia secondary to acute GI blood loss type and cross sent , [address] PRBC ordered[address] GI evaluation CT scan abdominal ordered plain since no abdominal symptoms. Ppi- since patient was using prednisone, aspirin, ibuprofen intermittently also. 2. Panic attack: hyperventilating, given 2 mg of Ativan and now she has more lax than before will add psych evaluation, also Ativan p.o. added. Continue other mood medications. 3. As per ED patient initially had wheezing question presumed the acute COPD related wheezing. Patient was given nebs and steroids when we saw the patient does not had any wheezing. 4. The SIRS criteria met but patient is less likely septic due to over impression: Patient was given 30 cc bolus and Levaquin. In ED blood cultures sent with leukocytosis probably related to acute blood loss and stay recent steroid use., tachycardia Tachycardia probably related to acute blood loss and she is having severe anxiety. lactic acidosis probably multifactorial- as above. above management discussed with the patient in detail length she understand and in agreement with the plan. full code, 70 min spent.
--- NOTE | 2021-09-23 16:40 | P.HPHOSP_ITS ---
History of Present Illness Date of Service: 09/23/21 Attending physician on admission: Alondra Whiteside Chief Complaint: sob 60 y/o f Patient came to the hospital because of bipolar,severe anxiety, short of breath actually she is hyperventilating when we saw the patient and very anxious, she does not noticed any neal blood in the stool or the did not vomit any blood either, she was she was treated for presumed bronchitis acute and COPD. She was sent with the p.o. prednisone and Augmentin at home, she also takes baby aspirin at home and also ibuprofen. patient denies any nausea vomiting or abdominal pain or fever chills or cough or phlegm. denies any fever, says that she had some chills at home. Denies any chest pain or dizziness or headaches. she says that she is progressively getting short of breath and with severe anxiety it was getting more worse. But when she tried to sleep then feels better otherwise could able to answer questions with full sentences but seems very panic. lab imaging reviewed her H&H is 7.6, WBC count is 12.3 chest x-ray seems fine occult blood positive will add CT abdomen plain since patient does not have any abdominal symptoms lactic acidosis- seems more likely related to anemia/ GI bleed/ also dehydration, Nebs. Patient in ED: Thought to be acute bronchitis and met SIRS criteria -patient was given 30 cc bolus antibiotics. Blood cultures sent. social history: She lives with her friend Martin, smokes marijuana and also ci jessicaette smoking a pack a day, denies any alcohol or recreation drug use. Review of Systems Review of Systems: As above. Yes all other systems are reviewed and are negative [facility] Medical History COPD (chronic obstructive pulmonary disease) Pertinent family history: 1 of her parent had CHF. brother had cva. Social History Household Members: Spouse Housing: House Do you presently have visiting nurse or other home services: Yes Alcohol intake: unknown Patient Tobacco Use Status: Current everyday Tobacco user Tobacco use type: Cigarette Cigarette Packs Per Day: 1 Cigarettes Per Day: 20.0 Smoked in Last 30 Days: No Patient Interested in Nicotine Replacement: No Patient Given Instructions on How to Stop Smoking: No Second Hand Smoke Exposure: No Use of substances other than those prescribed or required for medical reasons: No Substance Use Type: Marijuana Substance Use Frequency: Daily Last Used Substance: Days (ago) Have you been hit, kicked, punched, or otherwise hurt by someone within the past year? If so, by whom?: No Do you feel safe in your current relationship?: No Is there a partner from a previous relationship who is making you feel unsafe no w?: No Are you made to feel afraid or neglected: No Advance Directives: No Advance Directives Information Provided: No Advance Directives on File: No Do you have thoughts of harming others: None Do you have a plan to hurt others: No Plan Recently lost weight without trying: Yes How much weight loss: 2-13 pounds Eating poorly because of decreased appetite: Yes Nutrition screen score: 4 Nutrition Risks: No Nutritional Risk Patient : No : No Poor oral hygiene: No Meds Allergies Allergy/AdvReac Type Severity Reaction Status Date / Time No Known Allergies Allergy Verified 09/23/21 13:19 Active Medications: Current Medications Ipratropium [place] (Ipratropium [place] 0.5 Mg/2.5 Ml Solution) 0.5 mg INHALE RQ4H WHILE AWAKE [facility] Lorazepam (Lorazepam 1 Mg Tablet) 1 mg PO BID JAHAIRA Pantoprazole Sodium (Pantoprazole Sodium 40 Mg/10 Ml Vial) 40 mg IVPUSH BID [facility] Pharmacy Consult (Consult Rx Perform Med Rec) 1 each MISCELLANE ONCE PRN PRN Reason: Consult order Sodium Chloride (0.9 % Sodium Chloride Flush 3 Ml Syringe) 3 ml IVFLUSH QSHIFT [facility] Home Medications Medication Instructions Recorded Confirmed Last Taken Type benztropine 0.5 mg tablet 1 mg PO BEDTIME 09/01/21 09/23/21 09/22/21 History duloxetine 60 mg capsule,delayed 60 mg PO BID 09/01/21 09/23/21 09/22/21 History release sprinkle lamotrigine 200 mg tablet 200 mg PO BEDTIME 09/01/21 09/23/21 09/22/21 History trazodone 100 mg tablet 100 mg PO BEDTIME 09/01/21 09/23/21 09/22/21 History benztropine 0.5 mg tablet 0.5 mg PO DAILY 09/23/21 09/23/21 09/22/21 History risperidone 4 mg tablet (Risperdal) 6 mg PO BEDTIME 09/23/21 09/23/21 09/22/21 History Physical Exam Vital Signs and Narrative: Vital Signs: Last Vital Signs Temp 97.7 F 09/23/21 13:19 Pulse 99 09/23/21 14:23 Resp 18 09/23/21 14:23 BP 99/60 09/23/21 13:19 Pulse Ox 100 09/23/21 13:19 BMI result Body Mass Index 32.0 Appearance: Alert.? Oriented X3.? not in distress.? Eyes: Pupils equal, round and reactive to light.? Sclera nonicteric.? ENT: Pharynx normal.? Moist mucous membranes. cvs: rrr, [id number] , no murmur res: clear to auscultation ,no rhonchii or wheezing abd: no rebound or guarding ,nt, bs present. ext pulses present , no cyanosis ,Gait well balanced well coordinated. neuro: axo3 , nonfocal. Results Labs CBC and Chem 7: 09/24/21 06:06 09/24/21 06:06 Labs: Laboratory Results - last 24 hr 09/23/21 09/23/21 09/23/21 13:28 13:29 13:35 WBC MCV MCH MCHC RDW Plt Count MPV Immature Gran % (Auto) Neut % (Auto) Lymph % (Auto) [place] % (Auto) Eos % (Auto) Baso % (Auto) Lymph # (Auto) [place] # (Auto) Eos # (Auto) Baso # (Auto) Abs Immat Gran (auto) Absolute Neuts (auto) Absolute Nucleated RBC Nucleated RBC % (auto) Anion Gap 16 Estim Creat Clear Calc 56.3 Estimated GFR 54 POC Glucose 137 H Random Glucose 137 H Lactic Acid Calcium 9.0 Total Bilirubin 0.6 AST 8 ALT 6 Alkaline Phosphatase 55 Troponin I High Sens B-Natriuretic Peptide Total Protein 6.0 L Albumin 3.7 Stool Occult Blood COVID-19 (YULISSA) Negative COVID-19 Clin Com See Note 09/23/21 09/23/21 09/23/21 13:35 13:36 14:52 WBC 12.3 H MCV 67.4 L MCH 21.3 L MCHC 31.7 RDW 15.4 Plt Count 425 H MPV 9.6 Immature Gran % (Auto) 0.4 Neut % (Auto) 73.4 H Lymph % (Auto) 20.2 [place] % (Auto) 5.4 Eos % (Auto) 0.1 Baso % (Auto) 0.5 Lymph # (Auto) 2.5 [place] # (Auto) 0.7 Eos # (Auto) 0.0 Baso # (Auto) 0.1 Abs Immat Gran (auto) 0.05 H Absolute Neuts (auto) 9.0 H Absolute Nucleated RBC 0.020 H Nucleated RBC % (auto) 0.2 Anion Gap Estim Creat Clear Calc Estimated GFR POC Glucose Random Glucose Lactic Acid 4.5 H* Calcium Total Bilirubin AST ALT Alkaline Phosphatase Troponin I High Sens 4.4 B-Natriuretic Peptide 16 Total Protein Albumin Stool Occult Blood COVID-19 (YUILSSA) COVID-19 [employer] Com 09/23/21 15:00 WBC MCV MCH MCHC RDW Plt Count MPV Immature Gran % (Auto) Neut % (Auto) Lymph % (Auto) [place] % (Auto) Eos % (Auto) Baso % (Auto) Lymph # (Auto) [place] # (Auto) Eos # (Auto) Baso # (Auto) Abs Immat Gran (auto) Absolute Neuts (auto) Absolute Nucleated RBC Nucleated RBC % (auto) Anion Gap Estim Creat Clear Calc Estimated GFR POC Glucose Random Glucose Lactic Acid Calcium Total Bilirubin AST ALT Alkaline Phosphatase Troponin I High Sens B-Natriuretic Peptide Total Protein Albumin Stool Occult Blood POSITIVE COVID-19 (YULISSA) COVID-19 Clin Com Imaging Radiologist's Impressions: Impressions Chest X-Ray 09/23/21 13:56 IMPRESSION: No radiographic evidence of acute cardiopulmonary disease. Assessment and Plan (1) Anemia: Status: Acute (2) Acute blood loss anemia: Status: Acute assessment and plan: 1. Anemia secondary to acute GI blood loss type and cross sent , 2 PRBC ordered. moniter h/h GI evaluation CT scan abdominal ordered plain since no abdominal symptoms. Ppi- since patient was using prednisone, aspirin, ibuprofen intermittently also. 2. Panic attack: hyperventilating, given 2 mg of Ativan and now she has more lax than before will add psych evaluation, also Ativan p.o. added. Continue other mood medications. 3. As per ED patient initially had wheezing question presumed the acute COPD related wheezing. Patient was given nebs and steroids when we saw the patient does not had any wheezing. 4. The SIRS criteria met but patient is less likely septic due to over impression: Patient was given 30 cc bolus and Levaquin. In ED blood cultures sent with leukocytosis probably related to acute blood loss and stay recent steroid use., tachycardia Tachycardia probably related to acute blood loss and she is having severe anxiety. lactic acidosis probably multifactorial- as above. no suspicion of sepsis. 5. Cigarette smoking: Added nicotine patch 6. bipolar/ anxiety: Continue home medications in addition discussed with psych and added p.o. Ativan she also received IV Ativan in the ED. Now feeling more comfortable shortness of breath and anxiety . dvt pr o Thephylax: mech devices. above management discussed with the patient in detail length she understand and in agreement with the plan. full code, 70 min spent. Quality Stroke Does the patient have a stroke diagnosis?: No VTE Prior VTE?: No VTE Risk Level:: Medical - moderate - high VTE Device Contraindication: N/A - Device Ordered VTE Drug Contraindication: Treatment Not Indicated
[2021-09-23] MEDS: LORazepam 2 MG/ML VIAL 1 MG IVPUSH (16:45)
[2021-09-23 16:54] LABS: Procalcitonin 0.05 ng/mL
[2021-09-23 16:56] LABS: Reflex Lactate? Lactic Acid Added
[2021-09-23 17:44] LABS: ~Lactic Acid-LAB USE ONLY 3.2 mmol/L (0.5-2.0)
[2021-09-23 19:21] LABS: Reflex Lactate? 2 Y
[2021-09-23] MEDS: Ipratropium Bromide 0.5 MG/2.5 ML SOLUTION INHALE (19:27)
[2021-09-23 19:59] LABS: ~Lactic Acid-LAB USE ONLY 1.7 mmol/L (0.5-2.0)
--- NOTE | 2021-09-23 20:49 | PC.NURSE ---
1st unit infused. vs obtained.
--- NOTE | 2021-09-23 21:46 | PC.NURSE ---
2nd unit up and running as per protocol w/o difficulty. site intact. pt appears and acting very anxious and constantly moving in stretcher. pt was upset unable to find phone. pt up all over room in panic state to find phone. phone located in purse. pt educated on trying to relax. Pt c/o breathing difficulty. PO 100% on RA. Pt told several times to keep arm straight so RBC can infuse. pt is constantly taking off leads and removed po from fingers. will continue to monitor pt.
[2021-09-23] MEDS: Benztropine Mesylate 1 MG TABLET PO (21:55)
[2021-09-23] MEDS: traZODone HCL 100 MG TABLET PO (21:55)
[2021-09-23] MEDS: DULoxetine HCl 60 MG CAPSULE.DR PO (21:55)
[2021-09-23] MEDS: lamoTRIgine 100 MG TABLET 200 MG PO (21:57)
[2021-09-23] MEDS: Pantoprazole Sodium 40 MG/10 ML VIAL IVPUSH (21:57)
[2021-09-23] MEDS: risperiDONE 3 MG TABLET 6 MG PO (21:57)
--- NOTE | 2021-09-23 22:49 | PC.NURSE ---
pt is oob and looking for her phone again. pt unplugging leads, removed po, pt's blood is not infusing d/t arm being bent. pt is upset about her phone again. someone is gonna steal my phone. pt is reconnected and told she needs to stay in bed.
--- NOTE | 2021-09-23 23:02 | PC.NURSE ---
2nd unit transfused with no s/s of reaction noted. pt laying in stretcher in NAD. pt is NPO and constantly requesting water to drink. huge NPO sign on curtain.
[2021-09-23 23:48] LABS: Hematocrit 26.8 % (37.0-47.0); Hemoglobin 8.9 g/dl (12.0-16.0)
[2021-09-24] VITALS (9 sets, daily range): BP systolic 114–137; BP diastolic 58–83; PULSE 90–111; RESP 16–22; TEMP 36.2–36.9; O2SAT 93–100; BMI 29.5
[2021-09-24] MEDS: 0.9 % Sodium Chloride Flush 3 ML SYRINGE IVFLUSH ×4 (00:45→20:13)
--- NOTE | 2021-09-24 05:44 | PC.NURSE ---
Report given to maegan. Patient awake all night, fidgety, pulls leads off heart monitor repeatedlly. Redirectable. States she wants to go home and not stay in the hospital.
[2021-09-24 06:16] LABS: MANUAL DIFF FLAG NO
[2021-09-24 06:32] LABS: Basophils Percent Auto 0.2 % (0-2); Hemoglobin 9.4 g/dl (12.0-16.0); Imm Gran Abs Auto 0.09 X10*3/uL (0.00-0.03); Imm Gran Pct Auto 0.7 % (0.0-0.4); Lymphocytes Absolute Auto 1.8 X10*3/uL (1.2-4.9); Lymphocytes Percent Auto 13.9 % (20-40); Mean Corpuscular HGB Conc 31.3 g/dl (31.0-35.0); Mean Corpuscular Hemoglobin 24.3 pg (27.0-33.0); Mean Corpuscular Volume 77.5 fL (80.0-98.0); Mean Platelet Volume 10.5 fL (9.4-12.3); Monocytes Absolute Auto 1.1 X10*3/uL (0.1-1.2); Monocytes Percent Auto 8.3 % (2-11); Neutrophils Absolute Auto 10.2 x10*3/uL (2.0-8.3); Neutrophils Percent Auto 76.9 % (45-73); Platelet Count 203 X10*3/uL (160-400); Red Blood Count 3.87 X10*6/uL (4.20-5.50); Red Cell Distribution Width 23.7 % (11.0-16.0); White Blood Count 13.2 X10*3/uL (4.8-10.8)
--- NOTE | 2021-09-24 06:39 | P.EN_ITS ---
Event Note Date of Service: 09/24/21 Event Note: GI Consult received and chart reviewed. Will see patient later mary carter. History seems c/w anemia due to some acute GI bleeding. Her microcytic indices suggest a chronic ongoing slow GI blood loss process as well. I will review with patient and discuss an upper endoscopy and colonoscopy with her for possibly Saturday, 09/25. In the meantime she can have clear liquids if stable, and I will order the necessary NPO and bowel prep for her after I see her later today. Thanks
[2021-09-24 07:14] LABS: Anion Gap 12 (12-20); Blood Urea Nitrogen 16 mg/dL (9-16); Calcium 8.6 mg/dL (8.4-10.2); Carbon Dioxide 18 mmol/L (22-29); Chloride 115 mmol/L (96-108); Creatinine Clr Calc Pharmacy 74.5; Estimated Glomerular Filt Rate > 60; Glucose Random 105 mg/dL (60-115); Sodium 140 mmol/L (135-145)
[2021-09-24] MEDS: Ipratropium Bromide 0.5 MG/2.5 ML SOLUTION INHALE (08:03)
[2021-09-24] MEDS: LORazepam 1 MG TABLET PO ×2 (09:21→20:13)
[2021-09-24] MEDS: Pantoprazole Sodium 40 MG/10 ML VIAL IVPUSH ×2 (09:21→20:20)
[2021-09-24] MEDS: DULoxetine HCl 60 MG CAPSULE.DR PO ×2 (09:21→20:13)
[2021-09-24] MEDS: Benztropine Mesylate 0.5 MG TABLET PO (09:21)
--- NOTE | 2021-09-24 10:48 | P.PNIM_ITS ---
Subjective Subjective Date of Service: 09/24/21 Interval History: Anemia, pelvic mass Review of Systems Patient does not have any abdominal pain or nausea vomiting denies any overnight bleeding. And Physical Exam Vital Signs: Vital Signs: Last Vital Signs Temp 97.3 F 09/24/21 07:16 Pulse 101 H 09/24/21 08:04 Resp 18 09/24/21 08:04 BP 134/76 09/24/21 07:16 Pulse Ox 100 09/24/21 07:16 BMI result Body Mass Index 29.5 Appearance: Alert.? Oriented X3.? not in distress.? Eyes: Pupils equal, round and reactive to light.? Sclera nonicteric.? ENT: Pharynx normal.? Moist mucous membranes. cvs: rrr, [id number] , no murmur res: clear to auscultation ,no rhonchii or wheezing abd: no rebound or guarding ,nt, bs present. ext pulses present , no cyanosis ,Gait well balanced well coordinated. neuro: axo3 , nonfocal. Objective Data Active Medications Benztropine Mesylate (Benztropine Mesylate 0.5 Mg Tablet) 0.5 mg PO DAILY [facility] Last Admin: 09/24/21 09:21 Dose: 0.5 mg Documented by: EUNICE Benztropine Mesylate (Benztropine Mesylate 1 Mg Tablet) 1 mg PO BEDTIME [facility] Last Admin: 09/23/21 21:55 Dose: 1 mg Documented by: CANDIDO Duloxetine HCl (Duloxetine Hcl 60 Mg Capsule.Dr) 60 mg PO BID [facility] Last Admin: 09/24/21 09:21 Dose: 60 mg Documented by: EUNICE Ipratropium [place] (Ipratropium [place] 0.5 Mg/2.5 Ml Solution) 0.5 mg INHALE RQ4H WHILE AWAKE [facility] Last Admin: 09/24/21 08:03 Dose: 0.5 mg Documented by: RENE Lamotrigine (Lamotrigine 100 Mg Tablet) 200 mg PO BEDTIME [facility] Last Admin: 09/23/21 21:57 Dose: 200 mg Documented by: CANDIDO Lorazepam (Lorazepam 1 Mg Tablet) 1 mg PO BID [facility] Last Admin: 09/24/21 09:21 Dose: 1 mg Documented by: EUNICE Pantoprazole Sodium (Pantoprazole Sodium 40 Mg/10 Ml Vial) 40 mg IVPUSH BID [facility] Last Admin: 09/24/21 09:21 Dose: 40 mg Documented by: EUNICE Pharmacy Consult (Consult Rx Perform Med Rec) 1 each MISCELLANE ONCE PRN PRN Reason: Consult order Risperidone (Risperidone 3 Mg Tablet) 6 mg PO BEDTIME [facility] Last Admin: 09/23/21 21:57 Dose: 6 mg Documented by: CANDIDO Sodium Chloride (0.9 % Sodium Chloride Flush 3 Ml Syringe) 3 ml IVFLUSH QSHIFT [facility] Last Admin: 09/24/21 09:21 Dose: 3 ml Documented by: EUNICE Trazodone HCl (Trazodone Hcl 100 Mg Tablet) 100 mg PO BEDTIME [facility] Last Admin: 09/23/21 21:55 Dose: 100 mg Documented by: CANDIDO Labs CBC & Chem 7: 09/24/21 06:06 09/24/21 06:06 Labs: Laboratory Results - last 24 hr 09/23/21 09/23/21 09/23/21 13:28 13:29 13:35 MCV MCH MCHC RDW Plt Count MPV Immature Gran % (Auto) Neut % (Auto) Lymph % (Auto) [place] % (Auto) Eos % (Auto) Baso % (Auto) Lymph # (Auto) [place] # (Auto) Eos # (Auto) Baso # (Auto) Abs Immat Gran (auto) Absolute Neuts (auto) Absolute Nucleated RBC Nucleated RBC % (auto) Anion Gap 16 Estim Creat Clear Calc 56.3 Estimated GFR 54 POC Glucose 137 H Random Glucose 137 H Lactic Acid Lactic Acid F/U @ 2Hr Lactic Acid F/U @ 4Hr Calcium 9.0 Total Bilirubin 0.6 AST 8 ALT 6 Alkaline Phosphatase 55 Troponin I High Sens B-Natriuretic Peptide Total Protein 6.0 L Albumin 3.7 Procalcitonin Stool Occult Blood COVID-19 (YULISSA) Negative COVID-19 Clin Com See Note Blood Type Antibody Screen Crossmatch 09/23/21 09/23/21 09/23/21 13:35 13:35 13:36 MCV 67.4 L MCH 21.3 L MCHC 31.7 RDW 15.4 Plt Count 425 H MPV 9.6 Immature Gran % (Auto) 0.4 Neut % (Auto) 73.4 H Lymph % (Auto) 20.2 [place] % (Auto) 5.4 Eos % (Auto) 0.1 Baso % (Auto) 0.5 Lymph # (Auto) 2.5 [place] # (Auto) 0.7 Eos # (Auto) 0.0 Baso # (Auto) 0.1 Abs Immat Gran (auto) 0.05 H Absolute Neuts (auto) 9.0 H Absolute Nucleated RBC 0.020 H Nucleated RBC % (auto) 0.2 Anion Gap Estim Creat Clear Calc Estimated GFR POC Glucose Random Glucose Lactic Acid Lactic Acid F/U @ 2Hr Lactic Acid F/U @ 4Hr Calcium Total Bilirubin AST ALT Alkaline Phosphatase Troponin I High Sens 4.4 B-Natriuretic Peptide 16 Total Protein Albumin Procalcitonin 0.05 Stool Occult Blood COVID-19 (YULISSA) [employer] [facility] Blood Type Antibody Screen Crossmatch 09/23/21 09/23/21 09/23/21 14:52 15:00 16:49 MCV MCH MCHC RDW Plt Count MPV Immature Gran % (Auto) Neut % (Auto) Lymph % (Auto) [place] % (Auto) Eos % (Auto) Baso % (Auto) Lymph # (Auto) [place] # (Auto) Eos # (Auto) Baso # (Auto) Abs Immat Gran (auto) Absolute Neuts (auto) Absolute Nucleated RBC Nucleated RBC % (auto) Anion Gap Estim Creat Clear Calc Estimated GFR POC Glucose Random Glucose Lactic Acid 4.5 H* Lactic Acid F/U @ 2Hr Lactic Acid F/U @ 4Hr Calcium Total Bilirubin AST ALT Alkaline Phosphatase Troponin I High Sens B-Natriuretic Peptide Total Protein Albumin Procalcitonin Stool Occult Blood POSITIVE COVID-19 (YULISSA) [employer] [facility] Blood Type O Positive Antibody Screen NEGATIVE Crossmatch See Detail 09/23/21 09/23/21 09/24/21 17:18 19:36 06:06 MCV 77.5 L D MCH 24.3 L MCHC 31.3 RDW 23.7 H Plt Count 203 D MPV 10.5 Immature Gran % (Auto) 0.7 H Neut % (Auto) 76.9 H Lymph % (Auto) 13.9 L [place] % (Auto) 8.3 Eos % (Auto) 0.0 Baso % (Auto) 0.2 Lymph # (Auto) 1.8 [place] # (Auto) 1.1 Eos # (Auto) 0.0 Baso # (Auto) 0.0 Abs Immat Gran (auto) 0.09 H Absolute Neuts (auto) 10.2 H Absolute Nucleated RBC 0.000 Nucleated RBC % (auto) 0.0 Anion Gap Estim Creat Clear Calc Estimated GFR POC Glucose Random Glucose Lactic Acid Lactic Acid F/U @ 2Hr 3.2 H* Lactic Acid F/U @ 4Hr 1.7 Calcium Total Bilirubin AST ALT Alkaline Phosphatase Troponin I High Sens B-Natriuretic Peptide Total Protein Albumin Procalcitonin Stool Occult Blood COVID-19 (YULISSA) [employer] Blood Type Antibody Screen Crossmatch 09/24/21 06:06 MCV MCH MCHC RDW Plt Count MPV Immature Gran % (Auto) Neut % (Auto) Lymph % (Auto) [place] % (Auto) Eos % (Auto) Baso % (Auto) Lymph # (Auto) [place] # (Auto) Eos # (Auto) Baso # (Auto) Abs Immat Gran (auto) Absolute Neuts (auto) Absolute Nucleated RBC Nucleated RBC % (auto) Anion Gap 12 Estim Creat Clear Calc 74.5 Estimated GFR > 60 POC Glucose Random Glucose 105 Lactic Acid Lactic Acid F/U @ 2Hr Lactic Acid F/U @ 4Hr Calcium 8.6 Total Bilirubin AST ALT Alkaline Phosphatase Troponin I High Sens B-Natriuretic Peptide Total Protein Albumin Procalcitonin Stool Occult Blood COVID-19 (YULISSA) [employer] Blood Type Antibody Screen Crossmatch Assessment and Plan (1) Acute blood loss anemia: Status: Acute (2) Anemia: Status: Acute (3) Pelvic mass: Status: Acute Assessment and Plan: 1.? Anemia secondary to acute GI blood loss ?type and cross sent , 2 PRBC given. moniter h/h-improving 9.4 ? ?CT scan abdominal-pelvic mass. ? Ppi- since patient was using prednisone, aspirin, ibuprofen intermittently also. 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 Also abdominal MRI added to evaluate further pelvic mass. ? 2. Panic attack: Continue psych medications in addition to also Ativan p.o. added. ? Continue other mood medications. Psych evaluation pending 3. ? As per ED patient initially had wheezing question presumed the acute COPD related wheezing. ? SIRS criteria met on admission patient is not septic Tachycardia improving thought to be related to anxiety. No fever Blood culture pending, lactic acidosis resolved probably related to dehydration/anemia. Procalcitonin low Chest x-ray and abdominal CT does not show infection Will avoid adding antibiotics unless patient has fever or any new symptoms. 5.? Cigarette smoking: Added nicotine patch 6. bipolar/ anxiety:? Continue home medications in addition discussed with psych and added p.o. Ativan she also received IV Ativan in the ED.? Now feeling more comfortable shortness of breath and anxiety . dvt phylax: [facility] devices. Quality Stroke Does the patient have a stroke diagnosis?: No VTE Prior VTE?: No VTE Risk Level:: Medical - moderate - high VTE Device Contraindication: N/A - Device Ordered VTE Drug Contraindication: Treatment Not Indicated
--- NOTE | 2021-09-24 14:41 | MHC.SHP ---
Pre-Procedural Eval Section A Date of Service: 09/25/21 The patient is an INPATIENT: Yes The History & Physical has been completed within 30 days and I have reviewed it.: Yes Section B Chief Complaint: Gi bleed Severe Anxiety Allergies: Allergies Allergy/AdvReac Type Severity Reaction Status Date / Time No Known Allergies Allergy Verified 09/23/21 13:19 Plan I have reviewed the history and physical and performed a pertinent physical examination on my patient. No changes have occurred unless specified.
--- NOTE | 2021-09-24 14:43 | PM.EVENT ---
Event Note Date of Service: 09/24/21 Event Note: GI Consult-Full note dictated Imp: 60 yo female with reported melena, dysphagia to solids, anemia, and weight loss. She has a hx of smoking, daily ASA use, occasional NSAIDs, and some prednisone. Describes a colonoscopy at [facility] at age 54 with removal of a polyp. Denies any lower GI bleeding symptoms, abdominal pain, nor chronic GERD, although she reports occasional use of OTC omeprazole. She reports never having had an EGD. Diff dx: Esophagitis with esophageal stricture, esophageal neoplasm, PUD Rec: EGD with possible balloon dilation with MAC. Full consent obtained for this, including risks of bleeding and perforation. Continue PPI, F/U labs in AM. I did advise her that she may need an eventual colonoscopy depending upon the EGD findings. Patient is comfortable with this plan. Thanks
--- NOTE | 2021-09-24 15:14 | MHC.CM.PN ---
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
--- NOTE | 2021-09-24 15:21 | P.CNPS_ITS ---
History of Present Illness Date of Service: 09/24/2021 Chief Complaint: Gi bleed Severe Anxiety Reason for Consult: panic attacks Requesting physician: Alondra Whiteside Discussed with referring provider: Yes Sources of Information: patient interviewed and chart reviewed HPI Narrative: pt reports panic attacks started 2 days before admission. reports panic attacks were sever but she reports 24 hours free of panic. She reports the ativan has helped significantly. reports she feels calmer, more optimistic. reports breathing is easier. She denies sedation or dizziness from medication. she reports adherence to psych meds prior to admission. she denies any missed doses. She reports the lamictal, cymbalta, and risperdal have been helpful for years. She states she has a psychiatry appt with outpatient provider on Sep 29 a telemedicine appt. She is alert and oriented to person, place, time and situation. She denies depression, She denies any self ahrm thughts; NO SI or HI, No pressured speech. no grandiosity or flight of ideas. Past Psychiatric History: Long history of reported Bipolar Disorder. 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 Medical Evaluation Reviewed: Yes no rigidity, no cogwheeling, vitals stable, afrebrile. Personal & Social History: lives alone has supportive sister Review of Systems Review of Systems Patient does not have any abdominal pain or nausea vomiting denies any overnight bleeding. reports free of panic attacks since starting ativan Yes all other systems are reviewed and are negative [facility] Medical History COPD (chronic obstructive pulmonary disease) Family History: deferred Social History: lives alone, sister supportive Substance History: none Trauma History: deferred Diagnostics Vital Signs (24Hr): Vital Signs - 24 hr 09/23/21 17:25 09/23/21 17:40 09/23/21 17:55 Temperature 98.6 F 98.1 F 98.8 F Pulse Rate 105 H 108 H 104 H Respiratory Rate 19 17 Blood Pressure 124/65 143/51 H 144/65 H Pulse Oximetry 98 09/23/21 19:29 09/23/21 20:51 09/23/21 21:40 Temperature 98.3 F 98 F Pulse Rate 102 H 94 102 H Respiratory Rate 20 20 18 Blood Pressure 122/62 115/72 Pulse Oximetry 09/23/21 21:50 09/23/21 22:59 09/24/21 00:00 Temperature 98 F 98 F 97.9 F Pulse Rate 101 H 109 H 110 H Respiratory Rate 18 18 22 H Blood Pressure 124/69 120/60 114/65 Pulse Oximetry 09/24/21 04:00 09/24/21 06:27 09/24/21 07:16 Temperature 97.7 F 97.3 F Pulse Rate 111 H 97 103 H Respiratory Rate 16 18 18 Blood Pressure 137/75 126/72 134/76 Pulse Oximetry 99 97 100 09/24/21 08:04 09/24/21 12:00 Temperature 97.1 F Pulse Rate 101 H 97 Respiratory Rate 18 20 Blood Pressure 114/83 Pulse Oximetry 100 BMI result Body Mass Index 29.5 Labs Results: 09/24/21 06:06 09/24/21 06:06 Labs: Laboratory Results - last 48 hr 09/23/21 09/23/21 09/23/21 13:28 13:29 13:35 WBC RBC Hgb Hct MCV MCH MCHC RDW Plt Count MPV Immature Gran % (Auto) Neut % (Auto) Lymph % (Auto) [place] % (Auto) Eos % (Auto) Baso % (Auto) Lymph # (Auto) [place] # (Auto) Eos # (Auto) Baso # (Auto) Abs Immat Gran (auto) Absolute Neuts (auto) Absolute Nucleated RBC Nucleated RBC % (auto) Sodium 140 Potassium 3.8 Chloride 113 H Carbon Dioxide 15 L Anion Gap 16 BUN 25 H Creatinine 1.05 Estim Creat Clear Calc 56.3 Estimated GFR 54 POC Glucose 137 H Random Glucose 137 H Lactic Acid Lactic Acid F/U @ 2Hr Lactic Acid F/U @ 4Hr Calcium 9.0 Total Bilirubin 0.6 AST 8 ALT 6 Alkaline Phosphatase 55 Troponin I High Sens B-Natriuretic Peptide Total Protein 6.0 L Albumin 3.7 Procalcitonin Stool Occult Blood COVID-19 (YULISSA) Negative COVID-19 Clin Com See Note Blood Type Antibody Screen Crossmatch 09/23/21 09/23/21 09/23/21 13:35 13:35 13:36 WBC 12.3 H RBC 3.56 L D Hgb 7.6 L D Hct 24.0 L D MCV 67.4 L MCH 21.3 L MCHC 31.7 RDW 15.4 Plt Count 425 H MPV 9.6 Immature Gran % (Auto) 0.4 Neut % (Auto) 73.4 H Lymph % (Auto) 20.2 [place] % (Auto) 5.4 Eos % (Auto) 0.1 Baso % (Auto) 0.5 Lymph # (Auto) 2.5 [place] # (Auto) 0.7 Eos # (Auto) 0.0 Baso # (Auto) 0.1 Abs Immat Gran (auto) 0.05 H Absolute Neuts (auto) 9.0 H Absolute Nucleated RBC 0.020 H Nucleated RBC % (auto) 0.2 Sodium Potassium Chloride Carbon Dioxide Anion Gap BUN Creatinine Estim Creat Clear Calc Estimated GFR POC Glucose Random Glucose Lactic Acid Lactic Acid F/U @ 2Hr Lactic Acid F/U @ 4Hr Calcium Total Bilirubin AST ALT Alkaline Phosphatase Troponin I High Sens 4.4 B-Natriuretic Peptide 16 Total Protein Albumin Procalcitonin 0.05 Stool Occult Blood COVID-19 (YULISSA) COVID-L[employer] ([employer] Blood Type Antibody Screen Crossmatch 09/23/21 09/23/21 09/23/21 14:52 15:00 16:49 WBC RBC Hgb Hct MCV MCH MCHC RDW Plt Count MPV Immature Gran % (Auto) Neut % (Auto) Lymph % (Auto) [place] % (Auto) Eos % (Auto) Baso % (Auto) Lymph # (Auto) [place] # (Auto) Eos # (Auto) Baso # (Auto) Abs Immat Gran (auto) Absolute Neuts (auto) Absolute Nucleated RBC Nucleated RBC % (auto) Sodium Potassium Chloride Carbon Dioxide Anion Gap BUN Creatinine Estim Creat Clear Calc Estimated GFR POC Glucose Random Glucose Lactic Acid 4.5 H* Lactic Acid F/U @ 2Hr Lactic Acid F/U @ 4Hr Calcium Total Bilirubin AST ALT Alkaline Phosphatase Troponin I High Sens B-Natriuretic Peptide Total Protein Albumin Procalcitonin Stool Occult Blood POSITIVE COVID-19 (YULISSA) [facility] [place] [facility] Type O Positive Antibody Screen NEGATIVE Crossmatch See Detail 09/23/21 09/23/21 09/23/21 17:18 19:36 23:44 WBC RBC Hgb 8.9 L Hct 26.8 L MCV MCH MCHC RDW Plt Count MPV Immature Gran % (Auto) Neut % (Auto) Lymph % (Auto) [place] % (Auto) Eos % (Auto) Baso % (Auto) Lymph # (Auto) [place] # (Auto) Eos # (Auto) Baso # (Auto) Abs Immat Gran (auto) Absolute Neuts (auto) Absolute Nucleated RBC Nucleated RBC % (auto) Sodium Potassium Chloride Carbon Dioxide Anion Gap BUN Creatinine Estim Creat Clear Calc Estimated GFR POC Glucose Random Glucose Lactic Acid Lactic Acid F/U @ 2Hr 3.2 H* Lactic Acid F/U @ 4Hr 1.7 Calcium Total Bilirubin AST ALT Alkaline Phosphatase Troponin I High Sens B-Natriuretic Peptide Total Protein Albumin Procalcitonin Stool Occult Blood COVID-19 (YULISSA) COVID-19 [employer] Blood Type Antibody Screen Crossmatch 09/24/21 09/24/21 06:06 06:06 WBC 13.2 H RBC 3.87 L Hgb 9.4 L Hct 30.0 L MCV 77.5 L D MCH 24.3 L MCHC 31.3 RDW 23.7 H Plt Count 203 D MPV 10.5 Immature Gran % (Auto) 0.7 H Neut % (Auto) 76.9 H Lymph % (Auto) 13.9 L [place] % (Auto) 8.3 Eos % (Auto) 0.0 Baso % (Auto) 0.2 Lymph # (Auto) 1.8 [place] # (Auto) 1.1 Eos # (Auto) 0.0 Baso # (Auto) 0.0 Abs Immat Gran (auto) 0.09 H Absolute Neuts (auto) 10.2 H Absolute Nucleated RBC 0.000 Nucleated RBC % (auto) 0.0 Sodium 140 Potassium 5.0 D Chloride 115 H Carbon Dioxide 18 L Anion Gap 12 BUN 16 Creatinine 0.76 Estim Creat Clear Calc 74.5 Estimated GFR > 60 POC Glucose Random Glucose 105 Lactic Acid Lactic Acid F/U @ 2Hr Lactic Acid F/U @ 4Hr Calcium 8.6 Total Bilirubin AST ALT Alkaline Phosphatase Troponin I High Sens B-Natriuretic Peptide Total Protein Albumin Procalcitonin Stool Occult Blood COVID-19 (YULISSA) COVID-19 [employer] Blood Type Antibody Screen Crossmatch Imaging Radiology Impressions: ITS Impressions Chest X-Ray 09/23/21 13:56 IMPRESSION: No radiographic evidence of acute cardiopulmonary disease. Abdomen/Pelvis CT 09/23/21 16:46 IMPRESSION: No acute abnormality of the colon. No evidence of colitis or diverticulitis. 12.3 cm lobular soft tissue mass is seen in the pelvis, cephalad to the bladder. The uterus is not definitely seen nor is either ovary. The mass is of uncertain etiology, possibly adnexal. If the patient has not had a prior hysterectomy this could represent a myomatous uterus although it appears to be separate from the vaginal apex. Recommend correlation with history. Gynecologic consultation may be helpful to guide further management, for example MRI of the pelvis. Bilateral benign lipid rich adrenal adenomata; no imaging follow-up recommended. Fleischner guidelines were followed. Mental Status Exam Mental Status Exam Narrative: in hospital gown sitting up in bed Patient Appearance: Well Grooomed Patient Orientation: Person, Place, Time and Situation Level of Consciousness: Awake and Alert Patient Behavior: Appropriate, Cooperative and Good Eye Contact Affect Description: Calm Patient Cognition Impaired: No Ability to Follow Directions: Good Speech Pattern: Clear Memory Description: Intact Hallucinations: None Delusions: Not Present Thought Process: Goal Oriented Thought Content: positive for Intact Judgement: Good Medications Medications Current Medications Benztropine Mesylate (Benztropine Mesylate 0.5 Mg Tablet) 0.5 mg PO DAILY [facility] Last Admin: 09/24/21 09:21 Dose: 0.5 mg Documented by: Benztropine Mesylate (Benztropine Mesylate 1 Mg Tablet) 1 mg PO BEDTIME [facility] Last Admin: 09/23/21 21:55 Dose: 1 mg Documented by: Duloxetine HCl (Duloxetine Hcl 60 Mg Capsule.Dr) 60 mg PO BID [facility] Last Admin: 09/24/21 09:21 Dose: 60 mg Documented by: Ipratropium [place] (Ipratropium [place] 0.5 Mg/2.5 Ml Solution) 0.5 mg INHALE RQ4H WHILE AWAKE [facility] Last Admin: 09/24/21 15:17 Dose: Not Given Documented by: Lamotrigine (Lamotrigine 100 Mg Tablet) 200 mg PO BEDTIME [facility] Last Admin: 09/23/21 21:57 Dose: 200 mg Documented by: Lorazepam (Lorazepam 1 Mg Tablet) 1 mg PO BID [facility] Last Admin: 09/24/21 09:21 Dose: 1 mg Documented by: Pantoprazole Sodium (Pantoprazole Sodium 40 Mg/10 Ml Vial) 40 mg IVPUSH BID [facility] Last Admin: 09/24/21 09:21 Dose: 40 mg Documented by: Pharmacy Consult (Consult Rx Perform Med Rec) 1 each MISCELLANE ONCE PRN PRN Reason: Consult order Risperidone (Risperidone 3 Mg Tablet) 6 mg PO BEDTIME [facility] Last Admin: 09/23/21 21:57 Dose: 6 mg Documented by: Sodium Chloride (0.9 % Sodium Chloride Flush 3 Ml Syringe) 3 ml IVFLUSH QSHIFT [facility] Last Admin: 09/24/21 14:53 Dose: 3 ml Documented by: Trazodone HCl (Trazodone Hcl 100 Mg Tablet) 100 mg PO BEDTIME [facility] Last Admin: 09/23/21 21:55 Dose: 100 mg Documented by: Allergies Allergies Allergy/AdvReac Type Severity Reaction Status Date / Time No Known Allergies Allergy Verified 09/23/21 13:19 Assessment & Plan Assessment & Plan (1) Acute blood loss anemia: Status: Acute Code(s): D62 - Acute posthemorrhagic anemia (2) Anemia: Status: Acute Code(s): D64.9 - Anemia, unspecified (3) Pelvic mass: Status: Acute Code(s): R19.00 - Intra-abdominal and pelvic swelling, mass and lump, unspecified site (4) Panic anxiety syndrome: Status: Acute Code(s): F41.0 - Panic disorder [episodic paroxysmal anxiety] Assessment and Plan: Discussed with patient need to taper ativan and janine be on for a short time. She verbalized understanding recommend reducing to ativan 0.5 mg TID when appropriate and give 10 day supply upon discharge with directions to taper and discuss with outpatient provider Assessment and Plan: 1.? Anemia secondary to acute GI blood loss ?type and cross sent , 2 PRBC given. moniter h/h-improving 9.4 ? ?CT scan abdominal-pelvic mass. ? Ppi- since patient was using prednisone, aspirin, ibuprofen intermittently also. 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 Also abdominal MRI added to evaluate further pelvic mass. ? 2. Panic attack: Continue psych medications in addition to also Ativan p.o. added. ? Continue other mood medications. Psych evaluation pending 3. ? As per ED patient initially had wheezing question presumed the acute COPD related wheezing. ? SIRS criteria met on admission patient is not septic Tachycardia improving thought to be related to anxiety. No fever Blood culture pending, lactic acidosis resolved probably related to dehydration/anemia. Procalcitonin low Chest x-ray and abdominal CT does not show infection Will avoid adding antibiotics unless patient has fever or any new symptoms. 5.? Cigarette smoking: Added nicotine patch 6. bipolar/ anxiety:? Continue home medications in addition discussed with psych and added p.o. Ativan she also received IV Ativan in the ED.? Now feeling more comfortable shortness of breath and anxiety . [facility] I spent minutes with the patient and/or on the patient floor today, greater than?50% of which was spent counseling/coordinating care. Patient educated on: diagnosis, medication risk/benefits and therapeutic strategies
--- NOTE | 2021-09-24 17:05 | CONS_ITS ---
DATE OF SERVICE: 09/24/2021 REASON FOR CONSULTATION: Melena, dysphagia, and anemia. HISTORY OF PRESENT ILLNESS: This has been obtained from the patient, her nurse, and the medical record. The patient is a 60-year-old female admitted to the hospital with significant anemia with an initial hemoglobin of 7.6 on September 23. This was a significant drop from hemoglobin of 12.8 on September 01. She did receive 2 units of blood, and her hemoglobin was up to 8.9 last evening and 9.4 this morning. In discussion with the patient, she denies having had previous history of GI bleeding. She does describe about 2 or 3 weeks of intermittent melena at home but no hematochezia. She also describes dysphagia to solid food and some anorexia over the past few weeks with associated 10-pound weight loss. She does use occasional [id number] omeprazole but denies any chronic heartburn. She does not have any trouble with liquids. She denies any nausea or vomiting. She denies any abdominal pain or jaundice. She does describe a colonoscopy at age 54 at [facility] with removal of a small polyp. She has no history of ulcer disease and has never had an upper endoscopy by her report. Since admission here, she describes a small black stool this morning. There has been no hematochezia. She presently feels well from a GI standpoint. At home, she apparently takes a low-dose aspirin, occasional NSAIDs, and some prednisone for either asthma or emphysema. She is not on any other blood thinners from what I could see on her medication list. MEDICATIONS: Here include IV pantoprazole, risperidone, trazodone, Ativan, Lamictal, Cymbalta, albuterol inhaler. PAST MEDICAL HISTORY: Bipolar disease. COPD. She denies history of ID, diabetes, or stroke. PAST SURGICAL HISTORY: Broken jaw. 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 SOCIAL HISTORY: She does smoke about a pack a day. She denies alcohol use. She is single. FAMILY HISTORY: Noncontributory. REVIEW OF SYSTEMS: CONSTITUTIONAL: She had been feeling weak at home. Her appetite has been diminished. SKIN: No rash. No pruritus. CARDIAC: No chest pain. PULMONARY: No coughing or hemoptysis. GI: As above. PHYSICAL EXAMINATION: GENERAL: The patient is an alert female, in no distress. She answers questions appropriately. SKIN: Warm and dry. NECK: Supple. CARDIAC: Normal S1, S2. ABDOMEN: Soft, nondistended, nontender without mass. EXTREMITIES: Without edema. LABORATORY DATA: As above. White blood cell count 13.2, hemoglobin 9.4, MCV 78, platelets 203,000. Sodium 140, potassium 5.0, chloride 115, CO2 18, BUN 16, creatinine 0.8. BUN on admission was 25 with a creatinine of 1.05. Normal liver profile. Stool was heme positive. COVID was negative. CT scan of her abdomen and pelvis described a normal GI tract but some type of soft tissue mass in the pelvis that they recommended a followup with MRI for further evaluation. Chest x-ray is described as negative. IMPRESSION: Given the patient's clinical history of melena, dysphagia, weight loss, and significant anemia with microcytic indices, I would recommend an upper endoscopy to evaluate for any significant problems such as erosive esophagitis, esophageal stricture, esophageal neoplasm, or peptic ulcer disease. The procedure will be done with monitored anesthesia care. I did advise her that if she is found to have a stricture, we could perform balloon dilation at that time. Full consent obtained from her for the procedure, including risks of bleeding and perforation. In the meantime, I will continue her IV PPI and follow her blood counts as well as checking iron studies, B12, and folate. We did review that if the upper endoscopy is nonrevealing as far as the source of blood loss and we would want her to undergo an eventual colonoscopy even though she describes a basically negative one other than a small polyp at age 54. She was comfortable with this plan. Thank you for this consultation. MD HAIEL Jeffrey/GISELA / [phone]
[2021-09-24] MEDS: lamoTRIgine 100 MG TABLET 200 MG PO (20:13)
[2021-09-24] MEDS: Benztropine Mesylate 1 MG TABLET PO (20:13)
[2021-09-24] MEDS: traZODone HCL 100 MG TABLET PO (20:20)
[2021-09-24] MEDS: risperiDONE 3 MG TABLET 6 MG PO (20:20)
[2021-09-25] VITALS (13 sets, daily range): BP systolic 97–124; BP diastolic 61–80; PULSE 85–100; RESP 16–20; TEMP 36.5–37.2; O2SAT 90–100
[2021-09-25 06:43] LABS: MANUAL DIFF FLAG NO
[2021-09-25 06:48] LABS: Basophils Percent Auto 0.4 % (0-2); Eosinophils Absolute Auto 0.1 X10*3/uL (0.0-0.4); Eosinophils Percent Auto 1.2 % (0-4); Hematocrit 25.5 % (37.0-47.0); Hemoglobin 8.2 g/dl (12.0-16.0); Imm Gran Abs Auto 0.03 X10*3/uL (0.00-0.03); Imm Gran Pct Auto 0.4 % (0.0-0.4); Lymphocytes Absolute Auto 2.5 X10*3/uL (1.2-4.9); Lymphocytes Percent Auto 33.9 % (20-40); Mean Corpuscular HGB Conc 32.2 g/dl (31.0-35.0); Mean Corpuscular Hemoglobin 24.4 pg (27.0-33.0); Mean Corpuscular Volume 75.9 fL (80.0-98.0); Mean Platelet Volume 9.7 fL (9.4-12.3); Monocytes Absolute Auto 0.6 X10*3/uL (0.1-1.2); Monocytes Percent Auto 8.7 % (2-11); Neutrophils Absolute Auto 4.1 x10*3/uL (2.0-8.3); Neutrophils Percent Auto 55.4 % (45-73); Platelet Count 264 X10*3/uL (160-400); Red Blood Count 3.36 X10*6/uL (4.20-5.50); Red Cell Distribution Width 22.6 % (11.0-16.0); White Blood Count 7.4 X10*3/uL (4.8-10.8)
[2021-09-25 06:49] LABS: INTERNATIONAL NORM RATIO 1.1 (0.9-1.1); Prothrombin Time 12.2 SEC (9.9-13.0)
[2021-09-25 06:50] LABS: Hematocrit 25.1 % (37.0-47.0); Hemoglobin 8.2 g/dl (12.0-16.0)
[2021-09-25 06:59] LABS: Iron 38 mcg/dL (30-160); Percent Iron Saturation 17 % (15-50); Total Iron Binding Capacity 222 mcg/dL (228-428); Unsaturated Iron Binding 184 ug/dL
[2021-09-25 07:19] LABS: Ferritin 65 ng/mL (10-250)
[2021-09-25 07:30] LABS: Folate 7.6 ng/mL (> or = 4.0); Vitamin B12 158 pg/mL (200-900)
[2021-09-25] MEDS: Ipratropium Bromide 0.5 MG/2.5 ML SOLUTION INHALE ×3 (07:51→20:02)
[2021-09-25] MEDS: Pantoprazole Sodium 40 MG/10 ML VIAL IVPUSH (08:18)
[2021-09-25] MEDS: Benztropine Mesylate 0.5 MG TABLET PO (08:18)
[2021-09-25] MEDS: 0.9 % Sodium Chloride Flush 3 ML SYRINGE IVFLUSH ×3 (08:18→20:57)
[2021-09-25] MEDS: LORazepam 1 MG TABLET PO ×2 (08:18→20:57)
[2021-09-25] MEDS: DULoxetine HCl 60 MG CAPSULE.DR PO ×2 (08:18→20:57)
--- NOTE | 2021-09-25 10:47 | P.PNIM_ITS ---
Subjective Subjective Date of Service: 09/27/21 Interval History: anemia -h/h trending down 8.2 Review of Systems no abd pain Going for EGD no overnight bleed Physical Exam Vital Signs: Vital Signs: Last Vital Signs Temp 98.9 F 09/25/21 07:56 Pulse 94 09/25/21 07:56 Resp 18 09/25/21 07:56 BP 120/67 09/25/21 07:56 Pulse Ox 97 09/25/21 07:56 BMI result Body Mass Index 29.5 Appearance: Alert.? Oriented X3.? not in distress.? Eyes: Pupils equal, round and reactive to light.? Sclera nonicteric.? ENT: Pharynx normal.? Moist mucous membranes. cvs: rrr, [id number] , no murmur res: clear to auscultation ,no rhonchii or wheezing abd: no rebound or guarding ,nt, bs present. ext pulses present , no cyanosis ,Gait well balanced well coordinated. neuro: axo3 , nonfocal. Objective Data Active Medications Benztropine Mesylate (Benztropine Mesylate 0.5 Mg Tablet) 0.5 mg PO DAILY [facility] Last Admin: 09/25/21 08:18 Dose: 0.5 mg Documented by: ELYSSA Benztropine Mesylate (Benztropine Mesylate 1 Mg Tablet) 1 mg PO BEDTIME [facility] Last Admin: 09/24/21 20:13 Dose: 1 mg Documented by: BRAEDEN Duloxetine HCl (Duloxetine Hcl 60 Mg Capsule.Dr) 60 mg PO BID [facility] Last Admin: 09/25/21 08:18 Dose: 60 mg Documented by: ELYSSA Ipratropium [place] (Ipratropium [place] 0.5 Mg/2.5 Ml Solution) 0.5 mg INHALE RQ4H WHILE AWAKE [facility] Last Admin: 09/25/21 07:51 Dose: 0.5 mg Documented by: HOMERO Lamotrigine (Lamotrigine 100 Mg Tablet) 200 mg PO BEDTIME [facility] Last Admin: 09/24/21 20:13 Dose: 200 mg Documented by: BRAEDEN Lorazepam (Lorazepam 1 Mg Tablet) 1 mg PO BID [facility] Last Admin: 09/25/21 08:18 Dose: 1 mg Documented by: ELYSSA Pantoprazole Sodium (Pantoprazole Sodium 40 Mg/10 Ml Vial) 40 mg IVPUSH BID [facility] Last Admin: 09/25/21 08:18 Dose: 40 mg Documented by: ELYSSA Pharmacy Consult (Consult Rx Perform Med Rec) 1 each MISCELLANE ONCE PRN PRN Reason: Consult order Risperidone (Risperidone 3 Mg Tablet) 6 mg PO BEDTIME [facility] Last Admin: 09/24/21 20:20 Dose: 6 mg Documented by: BRAEDEN Sodium Chloride (0.9 % Sodium Chloride Flush 3 Ml Syringe) 3 ml IVFLUSH QSHIFT [facility] Last Admin: 09/25/21 08:18 Dose: 3 ml Documented by: ELYSSA Trazodone HCl (Trazodone Hcl 100 Mg Tablet) 100 mg PO BEDTIME [facility] Last Admin: 09/24/21 20:20 Dose: 100 mg Documented by: BRAEDEN Labs CBC & Chem 7: 09/26/21 05:30 09/24/21 06:06 Labs: Laboratory Results - last 24 hr 09/25/21 09/25/21 09/25/21 05:50 05:50 05:50 MCV 75.9 L MCH 24.4 L MCHC 32.2 RDW 22.6 H Plt Count 264 D MPV 9.7 Immature Gran % (Auto) 0.4 Neut % (Auto) 55.4 Lymph % (Auto) 33.9 [place] % (Auto) 8.7 Eos % (Auto) 1.2 Baso % (Auto) 0.4 Lymph # (Auto) 2.5 [place] # (Auto) 0.6 Eos # (Auto) 0.1 Baso # (Auto) 0.0 Abs Immat Gran (auto) 0.03 Absolute Neuts (auto) 4.1 Absolute Nucleated RBC 0.000 Nucleated RBC % (auto) 0.0 PT 12.2 INR 1.1 Iron 38 TIBC 222 L % Saturation 17 Unsat Iron Binding 184 Ferritin 65 Vitamin B12 Folate 09/25/21 05:50 MCV MCH MCHC RDW Plt Count MPV Immature Gran % (Auto) Neut % (Auto) Lymph % (Auto) [place] % (Auto) Eos % (Auto) Baso % (Auto) Lymph # (Auto) [place] # (Auto) Eos # (Auto) Baso # (Auto) Abs Immat Gran (auto) Absolute Neuts (auto) Absolute Nucleated RBC Nucleated RBC % (auto) PT INR Iron TIBC % Saturation Unsat Iron Binding Ferritin Vitamin B12 158 L Folate 7.6 Microbiology Microbiology Results: Microbiology 09/23/21 14:52 Blood Culture - Preliminary Blood - Venous No growth after 24 hours. 09/23/21 14:52 Blood Culture - Preliminary Blood - Venous No growth after 24 hours. Assessment and Plan (1) Anemia: Status: Acute Assessment and Plan: 1.? Anemia secondary to acute GI blood loss ?type and cross sent , 2 PRBC given. moniter h/h-trending down. To 8.2 ? ?CT scan abdominal-pelvic mass. ? Ppi- since patient was using prednisone, aspirin, ibuprofen intermittently also. GI evaluatio-egd today Also abdominal MRI added to evaluate further pelvic mass.? will d/w medical assistant ob gyn after pelvic mri. ? 2. Panic attack:? improved,Continue psych medications in addition to also Ativan p.o. added. ? Continue other mood medications. Psych evaluation-d/w psych provider -0.5 mg Ativan t.i.d. p.r.n. for anxiety up on discharge. 3. ? As per ED patient initially had wheezing question presumed the acute COPD related wheezing. ? SIRS criteria met on admission patient is not septic Tachycardia improving thought to be related to anxiety. No fever Blood culture pending, lactic acidosis resolved probably related to dehydration/anemia. Procalcitonin low Chest x-ray and abdominal CT does not show infection Will avoid adding antibiotics unless patient has fever or any new symptoms. blood culture prelim @24 hrs 5.? Cigarette smoking: Added nicotine patch 6. bipolar/ anxiety:? Continue home medications in addition discussed with psych and added p.o. Ativan she also received IV Ativan in the ED.? Now feeling more comfortable shortness of breath and anxiety . d/w psych provider -0.5 mg Ativan t.i.d. p.r.n. for anxiety upon discharge. dvt phylax: [facility] devices Quality Stroke Does the patient have a stroke diagnosis?: No VTE Prior VTE?: No VTE Risk Level:: Medical - moderate - high VTE Device Contraindication: N/A - Device Ordered VTE Drug Contraindication: Treatment Not Indicated
--- NOTE | 2021-09-25 13:25 | P.CONAN_ITS ---
[facility] Active Problems Active Problems: All Active Problems (Updated 09/24/21 @ 15:34 by Starla martino APRN) Panic anxiety syndrome (Acute) Pelvic mass (Acute) Acute blood loss anemia (Acute) Anemia (Acute) Melena (Acute) Septic shock (Acute) Past Medical History Medical History COPD (chronic obstructive pulmonary disease) Family History Family history of problems with anesthesia: No Surgical History History of Problems with Anesthesia: No Social History Social History Household Members: Spouse Housing: House Do you presently have visiting nurse or other home services: Yes Alcohol intake: unknown Patient Tobacco Use Status: Current everyday Tobacco user Tobacco use type: Cigarette Cigarette Packs Per Day: 1 Cigarettes Per Day: 20.0 Smoked in Last 30 Days: No Patient Interested in Nicotine Replacement: No Patient Given Instructions on How to Stop Smoking: No Second Hand Smoke Exposure: No Use of substances other than those prescribed or required for medical reasons: No Substance Use Type: Marijuana Substance Use Frequency: Daily Last Used Substance: Days (ago) Currently Displaying Signs/Symptoms of Drug Intoxication Withdrawal: No Have you been hit, kicked, punched, or otherwise hurt by someone within the past year? If so, by whom?: No Do you feel safe in your current relationship?: No Is there a partner from a previous relationship who is making you feel unsafe now?: No Are you made to feel afraid or neglected: No Advance Directives: No Advance Directives Information Provided: No Advance Directives on File: No Do you have thoughts of harming others: None Do you have a plan to hurt others: No Plan Recently lost weight without trying: Yes How much weight loss: 2-13 pounds Eating poorly because of decreased appetite: Yes Nutrition screen score: 4 Nutrition Risks: No Nutritional Risk Patient : No : No Poor oral hygiene: No Current occupational status: employed Meds Allergies Allergy/AdvReac Type Severity Reaction Status Date / Time No Known Allergies Allergy Verified 09/23/21 13:19 Active Medications: Current Medications Benztropine Mesylate (Benztropine Mesylate 0.5 Mg Tablet) 0.5 mg PO DAILY [facility] Last Admin: 09/25/21 08:18 Dose: 0.5 mg Documented by: Benztropine Mesylate (Benztropine Mesylate 1 Mg Tablet) 1 mg PO BEDTIME [facility] Last Admin: 09/24/21 20:13 Dose: 1 mg Documented by: Duloxetine HCl (Duloxetine Hcl 60 Mg Capsule.Dr) 60 mg PO BID [facility] Last Admin: 09/25/21 08:18 Dose: 60 mg Documented by: Ipratropium [place] (Ipratropium [place] 0.5 Mg/2.5 Ml Solution) 0.5 mg INHALE RQ4H WHILE AWAKE [facility] Last Admin: 09/25/21 11:55 Dose: Not Given Documented by: Lamotrigine (Lamotrigine 100 Mg Tablet) 200 mg PO BEDTIME [facility] Last Admin: 09/24/21 20:13 Dose: 200 mg Documented by: Lorazepam (Lorazepam 1 Mg Tablet) 1 mg PO BID [facility] Last Admin: 09/25/21 08:18 Dose: 1 mg Documented by: Pantoprazole Sodium (Pantoprazole Sodium 40 Mg/10 Ml Vial) 40 mg IVPUSH BID [facility] Last Admin: 09/25/21 08:18 Dose: 40 mg Documented by: Pharmacy Consult (Consult Rx Perform Med Rec) 1 each MISCELLANE ONCE PRN PRN Reason: Consult order Risperidone (Risperidone 3 Mg Tablet) 6 mg PO BEDTIME [facility] Last Admin: 09/24/21 20:20 Dose: 6 mg Documented by: Sodium Chloride (0.9 % Sodium Chloride Flush 3 Ml Syringe) 3 ml IVFLUSH QSHIFT [facility] Last Admin: 09/25/21 08:18 Dose: 3 ml Documented by: Trazodone HCl (Trazodone Hcl 100 Mg Tablet) 100 mg PO BEDTIME [facility] Last Admin: 09/24/21 20:20 Dose: 100 mg Documented by: Home Medications Medication Instructions Recorded Confirmed Last Taken Type benztropine 0.5 mg tablet 1 mg PO BEDTIME 09/01/21 09/23/21 09/22/21 History duloxetine 60 mg capsule,delayed 60 mg PO BID 09/01/21 09/23/21 09/22/21 History release sprinkle lamotrigine 200 mg tablet 200 mg PO BEDTIME 09/01/21 09/23/21 09/22/21 History trazodone 100 mg tablet 100 mg PO BEDTIME 09/01/21 09/23/21 09/22/21 History benztropine 0.5 mg tablet 0.5 mg PO DAILY 09/23/21 09/23/21 09/22/21 History risperidone 4 mg tablet (Risperdal) 6 mg PO BEDTIME 09/23/21 09/23/21 09/22/21 History Exam Exam Date and Time: September 25, 2021 1325 Height,Weight and Vital Signs: Height 5 ft 2 in Weight 73.1 kg Last Vital Signs Temp 98.3 F 09/25/21 13:13 Pulse 87 09/25/21 13:13 Resp 18 09/25/21 12:00 BP 106/64 09/25/21 13:13 Pulse Ox 95 09/25/21 13:13 Pertinent Lab Results Pertinent Lab Results: Laboratory Tests 09/23/21 09/23/21 09/23/21 13:28 13:29 13:35 WBC RBC Hgb Hct MCV MCH MCHC RDW Plt Count MPV Immature Gran % (Auto) Neut % (Auto) Lymph % (Auto) [place] % (Auto) Eos % (Auto) Baso % (Auto) Lymph # (Auto) [place] # (Auto) Eos # (Auto) Baso # (Auto) Abs Immat Gran (auto) Absolute Neuts (auto) Absolute Nucleated RBC Nucleated RBC % (auto) PT INR Sodium 140 Potassium 3.8 Chloride 113 H Carbon Dioxide 15 L Anion Gap 16 BUN 25 H Creatinine 1.05 Estim Creat Clear Calc 56.3 Estimated GFR 54 POC Glucose 137 H Random Glucose 137 H Lactic Acid Lactic Acid F/U @ 2Hr Lactic Acid F/U @ 4Hr Calcium 9.0 Iron TIBC % Saturation Unsat Iron Binding Ferritin Total Bilirubin 0.6 AST 8 ALT 6 Alkaline Phosphatase 55 Troponin I High Sens B-Natriuretic Peptide Total Protein 6.0 L Albumin 3.7 Vitamin B12 Folate Procalcitonin Stool Occult Blood COVID-19 (YULISSA) Negative COVID-19 Clin Com See Note Blood Type Antibody Screen Crossmatch 09/23/21 09/23/21 09/23/21 13:35 13:35 13:36 WBC 12.3 H RBC 3.56 L D Hgb 7.6 L D Hct 24.0 L D MCV 67.4 L MCH 21.3 L MCHC 31.7 RDW 15.4 Plt Count 425 H MPV 9.6 Immature Gran % (Auto) 0.4 Neut % (Auto) 73.4 H Lymph % (Auto) 20.2 [place] % (Auto) 5.4 Eos % (Auto) 0.1 Baso % (Auto) 0.5 Lymph # (Auto) 2.5 [place] # (Auto) 0.7 Eos # (Auto) 0.0 Baso # (Auto) 0.1 Abs Immat Gran (auto) 0.05 H Absolute Neuts (auto) 9.0 H Absolute Nucleated RBC 0.020 H Nucleated RBC % (auto) 0.2 PT INR Sodium Potassium Chloride Carbon Dioxide Anion Gap BUN Creatinine Estim Creat Clear Calc Estimated GFR POC Glucose Random Glucose Lactic Acid Lactic Acid F/U @ 2Hr Lactic Acid F/U @ 4Hr Calcium Iron TIBC % Saturation Unsat Iron Binding Ferritin Total Bilirubin AST ALT Alkaline Phosphatase Troponin I High Sens 4.4 B-Natriuretic Peptide 16 Total Protein Albumin Vitamin B12 Folate Procalcitonin 0.05 Stool Occult Blood COVID-19 (YULISSA) [employer] Blood Type Antibody Screen Crossmatch 09/23/21 09/23/21 09/23/21 14:52 15:00 16:49 WBC RBC Hgb Hct MCV MCH MCHC RDW Plt Count MPV Immature Gran % (Auto) Neut % (Auto) Lymph % (Auto) [place] % (Auto) Eos % (Auto) Baso % (Auto) Lymph # (Auto) [place] # (Auto) Eos # (Auto) Baso # (Auto) Abs Immat Gran (auto) Absolute Neuts (auto) Absolute Nucleated RBC Nucleated RBC % (auto) PT INR Sodium Potassium Chloride Carbon Dioxide Anion Gap BUN Creatinine Estim Creat Clear Calc Estimated GFR POC Glucose Random Glucose Lactic Acid 4.5 H* Lactic Acid F/U @ 2Hr Lactic Acid F/U @ 4Hr Calcium Iron TIBC % Saturation Unsat Iron Binding Ferritin Total Bilirubin AST ALT Alkaline Phosphatase Troponin I High Sens B-Natriuretic Peptide Total Protein Albumin Vitamin B12 Folate Procalcitonin Stool Occult Blood POSITIVE COVID-19 (YULISSA) COVIDMendix Blood Type O Positive Antibody Screen NEGATIVE Crossmatch See Detail 09/23/21 09/23/21 09/23/21 17:18 19:36 23:44 WBC RBC Hgb 8.9 L Hct 26.8 L MCV MCH MCHC RDW Plt Count MPV Immature Gran % (Auto) Neut % (Auto) Lymph % (Auto) [place] % (Auto) Eos % (Auto) Baso % (Auto) Lymph # (Auto) [place] # (Auto) Eos # (Auto) Baso # (Auto) Abs Immat Gran (auto) Absolute Neuts (auto) Absolute Nucleated RBC Nucleated RBC % (auto) PT INR Sodium Potassium Chloride Carbon Dioxide Anion Gap BUN Creatinine Estim Creat Clear Calc Estimated GFR POC Glucose Random Glucose Lactic Acid Lactic Acid F/U @ 2Hr 3.2 H* Lactic Acid F/U @ 4Hr 1.7 Calcium Iron TIBC % Saturation Unsat Iron Binding Ferritin Total Bilirubin AST ALT Alkaline Phosphatase Troponin I High Sens B-Natriuretic Peptide Total Protein Albumin Vitamin B12 Folate Procalcitonin Stool Occult Blood COVID-19 (YULISSA) COVIDMendix Blood Type Antibody Screen Crossmatch 09/24/21 09/24/21 09/25/21 06:06 06:06 05:50 WBC 13.2 H RBC 3.87 L Hgb 9.4 L Hct 30.0 L MCV 77.5 L D MCH 24.3 L MCHC 31.3 RDW 23.7 H Plt Count 203 D MPV 10.5 Immature Gran % (Auto) 0.7 H Neut % (Auto) 76.9 H Lymph % (Auto) 13.9 L [place] % (Auto) 8.3 Eos % (Auto) 0.0 Baso % (Auto) 0.2 Lymph # (Auto) 1.8 [place] # (Auto) 1.1 Eos # (Auto) 0.0 Baso # (Auto) 0.0 Abs Immat Gran (auto) 0.09 H Absolute Neuts (auto) 10.2 H Absolute Nucleated RBC 0.000 Nucleated RBC % (auto) 0.0 PT 12.2 INR 1.1 Sodium 140 Potassium 5.0 D Chloride 115 H Carbon Dioxide 18 L Anion Gap 12 BUN 16 Creatinine 0.76 Estim Creat Clear Calc 74.5 Estimated GFR > 60 POC Glucose Random Glucose 105 Lactic Acid Lactic Acid F/U @ 2Hr Lactic Acid F/U @ 4Hr Calcium 8.6 Iron TIBC % Saturation Unsat Iron Binding Ferritin Total Bilirubin AST ALT Alkaline Phosphatase Troponin I High Sens B-Natriuretic Peptide Total Protein Albumin Vitamin B12 Folate Procalcitonin Stool Occult Blood COVID-19 (YULISSA) COVIDMendix Blood Type Antibody Screen Crossmatch 09/25/21 09/25/21 09/25/21 05:50 05:50 05:50 WBC 7.4 RBC 3.36 L Hgb 8.2 L Hct 25.5 L MCV 75.9 L MCH 24.4 L MCHC 32.2 RDW 22.6 H Plt Count 264 D MPV 9.7 Immature Gran % (Auto) 0.4 Neut % (Auto) 55.4 Lymph % (Auto) 33.9 [place] % (Auto) 8.7 Eos % (Auto) 1.2 Baso % (Auto) 0.4 Lymph # (Auto) 2.5 [place] # (Auto) 0.6 Eos # (Auto) 0.1 Baso # (Auto) 0.0 Abs Immat Gran (auto) 0.03 Absolute Neuts (auto) 4.1 Absolute Nucleated RBC 0.000 Nucleated RBC % (auto) 0.0 PT INR Sodium Potassium Chloride Carbon Dioxide Anion Gap BUN Creatinine Estim Creat Clear Calc Estimated GFR POC Glucose Random Glucose Lactic Acid Lactic Acid F/U @ 2Hr Lactic Acid F/U @ 4Hr Calcium Iron 38 TIBC 222 L % Saturation 17 Unsat Iron Binding 184 Ferritin 65 Total Bilirubin AST ALT Alkaline Phosphatase Troponin I High Sens B-Natriuretic Peptide Total Protein Albumin Vitamin B12 158 L Folate 7.6 Procalcitonin Stool Occult Blood COVID-19 (YULISSA) [employer] Blood Type Antibody Screen Crossmatch 09/25/21 05:50 WBC RBC Hgb 8.2 L Hct 25.1 L MCV MCH MCHC RDW Plt Count MPV Immature Gran % (Auto) Neut % (Auto) Lymph % (Auto) [place] % (Auto) Eos % (Auto) Baso % (Auto) Lymph # (Auto) [place] # (Auto) Eos # (Auto) Baso # (Auto) Abs Immat Gran (auto) Absolute Neuts (auto) Absolute Nucleated RBC Nucleated RBC % (auto) PT INR Sodium Potassium Chloride Carbon Dioxide Anion Gap BUN Creatinine Estim Creat Clear Calc Estimated GFR POC Glucose Random Glucose Lactic Acid Lactic Acid F/U @ 2Hr Lactic Acid F/U @ 4Hr Calcium Iron TIBC % Saturation Unsat Iron Binding Ferritin Total Bilirubin AST ALT Alkaline Phosphatase Troponin I High Sens B-Natriuretic Peptide Total Protein Albumin Vitamin B12 Folate Procalcitonin Stool Occult Blood COVID-19 (YULISSA) COVIDMendix Blood Type Antibody Screen Crossmatch Airway Mallampati Class: II (Missing back molar) TM Dist: >3cm Neck ROM: Full Heart: rrr Lungs: cta Assessment and Plan Assessment Anesthesia Assessment: Anesthesia Plan Discussed and Chart Reviewed Final Anesthetic Review Family History of Problems with Anesthesia: No History of Problems with Anesthesia: No NPO: Yes ASA Class: III Final Preanesthetic Review: No Changes in Pt Med Stat, Meds/Allgs Chart Reviewed and Consent Obtained/Reviewed Patient Risk: Intermediate Procedure Risk: Intermediate Anesthetic Plan Anesthetic Plan: MAC: Disposition: Standard PACU
--- NOTE | 2021-09-25 13:28 | MHC.CM.PN ---
EMR REVIEWED, PER HOSPITALIST PT WILL NEED UPPER AND LOWER ENDOSCOPY PRIOR TO D/C, PER GI THEY WILL START W/UPPER ENDOSCOPY, MRI RESULTS PENDING, ANTIC D/C IN 1-2 DAYS, CM WILL CONT TO FOLLOW D/C NEEDS.
[2021-09-25] MEDS: Lactated Ringers 1,000 ML 50 ML IVCONT (13:44)
--- NOTE | 2021-09-25 14:46 | PM.OP ---
Brief Operative Note Date of Service: 09/25/21 Pre-op diagnosis: Melena, Anemia Post-op diagnosis: other (Gastric ulcers and Gastritis) Procedure: EGD with biopsies Surgeon: Bib Arthur Anesthesia: MAC Was an Gallery Intern used for this Procedure?: No Estimated blood loss (mL): 2.0 Pathology: other (A. Gastric ulcers and Gastritis from antrum B. Gastric antrum) Condition: stable Disposition: PACU
--- NOTE | 2021-09-25 14:50 | PM.EVENT ---
Event Note Date of Service: 09/25/21 Event Note: GI-EGD-Full note dictated Findings: 1. 2 nonbleeding gastric antral ulcers on posterior wall with clean bases and no bleeding--surrounding gastritis and edema, but I suspect these are benign. Multiple biopsies taken. 2. Duodenitis 3. Small hiatal hernia 4. Gastric antrum biopsied x3, R/O H.pylori 5. No sign of esophageal disease nor stricture/ring, therefore no dilation done Rec: Start po PPI BID x 2 months, and then QD intermediate. Regular diet. Start po Iron and replete B12. She can see me in follow up to discuss a F/U EGD to assess for ulcer healing and a possible colonoscopy. Thanks
--- NOTE | 2021-09-25 14:58 | MHC.CLN ---
NUTRITION REVIEW OF WEIGHTS 09/23=79.4 KG; 09/01=81.6 KG, -2.8% WEIGHT LOSS. PATIENT AT PROCEDURE AT TIME OF VISIT. DX GI BLEED AND ANXIETY.
--- NOTE | 2021-09-25 15:04 | P.CNID_ITS ---
History of Present Illness Data of Consult Service Date: 09/25/21 Requesting physician: Alondra Whiteside Primary Care Provider: Daljit Irby MD HPI Reason for consult: leukocytosis,SIRS ?sepsis She presents with shortness of breath and anxiety for last four days She was seen 09/01 in ER for cough and given Prednisone She comes in with WBC count of 12,000 and COVID negative Review of Systems Review of Systems: Yes all other systems are reviewed and are negative PMFSH Past Medical History Medical History Anemia COPD (chronic obstructive pulmonary disease) Hx of head injury Family History Family history: reviewed and not pertinent Surgical History Surgical History H/O: hysterectomy History of mandibular surgery Hx of colonoscopy Social History Social History Household Members: Spouse Housing: House Do you presently have visiting nurse or other home services: Yes Alcohol intake: unknown Patient Tobacco Use Status: Current everyday Tobacco user Tobacco use type: Cigarette Cigarette Packs Per Day: 1 Cigarettes Per Day: 20.0 Smoked in Last 30 Days: No Patient Interested in Nicotine Replacement: No Patient Given Instructions on How to Stop Smoking: No Second Hand Smoke Exposure: No Use of substances other than those prescribed or required for medical reasons: No Substance Use Type: Marijuana Substance Use Frequency: Weekly Last Used Substance: Days (ago) Currently Displaying Signs/Symptoms of Drug Intoxication Withdrawal: No Have you been hit, kicked, punched, or otherwise hurt by someone within the past year? If so, by whom?: No Do you feel safe in your current relationship?: No Is there a partner from a previous relationship who is making you feel unsafe no w?: No Are you made to feel afraid or neglected: No Are you DNR?: No Advance Directives: No Advance Directives Information Provided: No Advance Directives on File: No Do you have thoughts of harming others: None Do you have a plan to hurt others: No Plan Recently lost weight without trying: Yes How much weight loss: 2-13 pounds Eating poorly because of decreased appetite: Yes Nutrition screen score: 4 Nutrition Risks: No Nutritional Risk Patient : No : No Poor oral hygiene: No Current occupational status: employed Meds Allergies Allergy/AdvReac Type Severity Reaction Status Date / Time No Known Allergies Allergy Verified 09/23/21 13:19 Active Medications: Current Medications Benztropine Mesylate (Benztropine Mesylate 0.5 Mg Tablet) 0.5 mg PO DAILY [facility] Last Admin: 09/25/21 08:18 Dose: 0.5 mg Documented by: Benztropine Mesylate (Benztropine Mesylate 1 Mg Tablet) 1 mg PO BEDTIME [facility] Last Admin: 09/24/21 20:13 Dose: 1 mg Documented by: Duloxetine HCl (Duloxetine Hcl 60 Mg Capsule.Dr) 60 mg PO BID [facility] Last Admin: 09/25/21 08:18 Dose: 60 mg Documented by: Lactated Ringer's (Lr) 1,000 mls @ 50 mls/hr IVCONT .Q20H [facility] Last Admin: 09/25/21 13:44 Dose: 50 mls/hr Documented by: Ipratropium [place] (Ipratropium [place] 0.5 Mg/2.5 Ml Solution) 0.5 mg INHALE RQ4H WHILE AWAKE [facility] Last Admin: 09/25/21 11:55 Dose: Not Given Documented by: Lamotrigine (Lamotrigine 100 Mg Tablet) 200 mg PO BEDTIME [facility] Last Admin: 09/24/21 20:13 Dose: 200 mg Documented by: Lorazepam (Lorazepam 1 Mg Tablet) 1 mg PO BID [facility] Last Admin: 09/25/21 08:18 Dose: 1 mg Documented by: Pantoprazole Sodium (Pantoprazole Sodium 40 Mg/10 Ml Vial) 40 mg IVPUSH BID [facility] Last Admin: 09/25/21 08:18 Dose: 40 mg Documented by: Pharmacy Consult (Consult Rx Perform Med Rec) 1 each MISCELLANE ONCE PRN PRN Reason: Consult order Risperidone (Risperidone 3 Mg Tablet) 6 mg PO BEDTIME [facility] Last Admin: 09/24/21 20:20 Dose: 6 mg Documented by: Sodium Chloride (0.9 % Sodium Chloride Flush 3 Ml Syringe) 3 ml IVFLUSH QSHIFT [facility] Last Admin: 09/25/21 08:18 Dose: 3 ml Documented by: Trazodone HCl (Trazodone Hcl 100 Mg Tablet) 100 mg PO BEDTIME [facility] Last Admin: 09/24/21 20:20 Dose: 100 mg Documented by: Home Medications Medication Instructions Recorded Confirmed Last Taken Type benztropine 0.5 mg tablet 1 mg PO BEDTIME 09/01/21 09/23/21 09/22/21 History duloxetine 60 mg capsule,delayed 60 mg PO BID 09/01/21 09/23/21 09/22/21 History release sprinkle lamotrigine 200 mg tablet 200 mg PO BEDTIME 09/01/21 09/23/21 09/22/21 History trazodone 100 mg tablet 100 mg PO BEDTIME 09/01/21 09/23/21 09/22/21 History benztropine 0.5 mg tablet 0.5 mg PO DAILY 09/23/21 09/23/21 09/22/21 History risperidone 4 mg tablet (Risperdal) 6 mg PO BEDTIME 09/23/21 09/23/21 09/22/21 History Physical Exam Vital Signs: Vital Signs: Last Vital Signs Temp 97.7 F 09/25/21 14:55 Pulse 97 09/25/21 14:55 Resp 20 09/25/21 14:55 BP 118/68 09/25/21 14:55 Pulse Ox 99 09/25/21 14:55 BMI result Body Mass Index 29.5 Const: General: cooperative Orientation/consciousness: patient oriented x3 HENMT: Head: Yes normal to inspection Mouth: Normal oral and palatal mucosa present Eyes: Pupils: Equal, round and reactive pupils present Resp: Effort & Inspection: normal respiratory effort Cardio: Rate: regular rate Rhythm: regular rhythm GI: Palpation (GI): Soft to palpation and nontender Skin: General skin exam: no rashes or lesions noted Neuro: General: patient oriented x3 Cranial nerves: Yes Equal, round and reactive pupils present Results Labs CBC & Chem 7: 09/25/21 05:50 09/24/21 06:06 Labs: Short CBC 09/25/21 09/25/21 Range/Units 05:50 05:50 WBC 7.4 (4.8-10.8) X10*3/uL Hgb 8.2 L 8.2 L (12.0-16.0) g/dl Hct 25.5 L 25.1 L (37.0-47.0) % Plt Count 264 D (160-400) X10*3/uL Microbiology Microbiology Results: Microbiology 09/23/21 14:52 Blood - Venous Blood Culture - Preliminary No growth after 24 hours. 09/23/21 14:52 Blood - Venous Blood Culture - Preliminary No growth after 24 hours. Assessment and Plan (1) Acute blood loss anemia: Status: Acute There is no evidence of infection at this time Early COVID that doesnt show on testing is always a possibility No antibiotics Check COVID testing in another week
--- NOTE | 2021-09-25 15:56 | OP_ITS ---
SURGEON: Bib Arthur MD INDICATIONS: The patient presents for evaluation of melena and anemia. Full consent was obtained from her for this, including risks of bleeding and perforation. PREOPERATIVE DIAGNOSIS: POSTOPERATIVE DIAGNOSIS: PROCEDURE PERFORMED: ESTIMATED BLOOD LOSS: COMPLICATIONS: ANESTHESIA: Monitored anesthesia care. ASSISTANTS: SPECIMENS: PROCEDURE: Esophagogastroduodenoscopy with biopsies. PREOPERATIVE DIAGNOSES: Melena and anemia. POSTOPERATIVE DIAGNOSES: Melena and anemia, gastric ulcers, gastritis, duodenitis, and hiatal hernia. DESCRIPTION OF PROCEDURE: The patient was placed in the left lateral decubitus position. The Olympus video gastroscope was passed in the posterior oropharynx and upper esophagus under direct vision. Scope was passed slowly into the distal esophagus. The gastroesophageal junction appeared normal at 36 cm. There was no sign of any esophageal stricture, esophagitis, nor esophageal ring. The scope easily entered the stomach and was advanced to the pylorus. There was edema in the prepyloric antrum. The pyloric channel appeared normal. The duodenum was cannulated to the descending portion. There was some mild duodenitis in the duodenal bulb, but no evidence of any ulcer disease. The 2nd and 3rd portions of duodenum appeared normal. Scope was withdrawn back into the stomach. Along the posterior wall of the stomach, there was gastritis, edema, and 2 discrete ulcers measuring between 8 and 10 mm in diameter. The ulcer bases were clean without any visible vessel nor bleeding. There was surrounding edema and gastritis, but they appeared to be grossly benign. There was good peristalsis. The scope was retroflexed visualizing the proximal stomach carefully, which appeared normal, without mass or ulceration. Scope was straightened. I obtained multiple biopsies from the margins of the ulcers and the area of gastritis. I then obtained several biopsies from the gastric antrum to inspect for H pylori. The scope was withdrawn to the remainder of the stomach, which otherwise appeared normal. Scope was withdrawn back to the esophagus. Again, the gastroesophageal junction appeared normal and did not appear to require dilation. The scope was withdrawn through the remainder of the esophagus, which appeared normal. Scope was withdrawn from the patient. She tolerated the procedure well and was returned to the recovery area in stable condition. IMPRESSION: 1. Gastric ulcers and gastritis, rule out Helicobacter pylori. 2. Mild duodenitis. 3. Hiatal hernia. PLAN: The results of the biopsies will be checked. She will be switched to oral PPI and I would recommend continuing omeprazole 40 mg daily for 2 months, and then 20 mg daily for maintenance long-term. She should avoid all aspirin and NSAIDs, as well as to try to stop smoking. If Helicobacter pylori is present in the gastric biopsies, I would recommend treating that at some point. I will try to have her come see me in the office for followup and then recommend a repeat upper endoscopy 2-3 months for assessment of healing of the ulcers, as well as to consider colonoscopy in regard to the anemia and her reported previous history of a polyp removed at age 54. Her diet will be advanced. She should also start some B12 replacement as her B12 level was low at 158. Her iron was borderline low at 38 and ferritin was 65. I would also recommend starting her on iron supplement. MD HAILE Jeffrey/GISELA / [id number] MTDD
[2021-09-25] MEDS: Omeprazole 20 MG CAPSULE.DR PO (16:24)
[2021-09-25] MEDS: Cyanocobalamin (Vitamin B-12) 1,000 MCG/ML VIAL 1000 MCG IM (18:24)
[2021-09-25] MEDS: Ferrous Sulfate 300 MG/5 ML LIQUID PO (18:24)
[2021-09-25] MEDS: lamoTRIgine 100 MG TABLET 200 MG PO (20:56)
[2021-09-25] MEDS: risperiDONE 3 MG TABLET 6 MG PO (20:57)
[2021-09-25] MEDS: traZODone HCL 100 MG TABLET PO (20:57)
[2021-09-25] MEDS: Benztropine Mesylate 1 MG TABLET PO (20:57)
[2021-09-26] VITALS (8 sets, daily range): BP systolic 105–120; BP diastolic 60–72; PULSE 74–102; RESP 16–20; TEMP 36.3–37.4; O2SAT 94–98
[2021-09-26 06:02] LABS: MANUAL DIFF FLAG NO
[2021-09-26 06:10] LABS: Basophils Percent Auto 0.4 % (0-2); Eosinophils Absolute Auto 0.2 X10*3/uL (0.0-0.4); Eosinophils Percent Auto 2.4 % (0-4); Hematocrit 25.2 % (37.0-47.0); Imm Gran Abs Auto 0.03 X10*3/uL (0.00-0.03); Imm Gran Pct Auto 0.4 % (0.0-0.4); Lymphocytes Absolute Auto 2.3 X10*3/uL (1.2-4.9); Lymphocytes Percent Auto 27.5 % (20-40); Mean Corpuscular HGB Conc 31.7 g/dl (31.0-35.0); Mean Corpuscular Volume 75.7 fL (80.0-98.0); Mean Platelet Volume 9.9 fL (9.4-12.3); Monocytes Absolute Auto 0.7 X10*3/uL (0.1-1.2); Monocytes Percent Auto 7.8 % (2-11); Neutrophils Absolute Auto 5.1 x10*3/uL (2.0-8.3); Neutrophils Percent Auto 61.5 % (45-73); Platelet Count 268 X10*3/uL (160-400); Red Blood Count 3.33 X10*6/uL (4.20-5.50); Red Cell Distribution Width 22.5 % (11.0-16.0); White Blood Count 8.3 X10*3/uL (4.8-10.8)
[2021-09-26] MEDS: Omeprazole 20 MG CAPSULE.DR PO ×2 (06:22→16:23)
[2021-09-26] MEDS: Ipratropium Bromide 0.5 MG/2.5 ML SOLUTION INHALE ×3 (07:36→16:17)
[2021-09-26] MEDS: DULoxetine HCl 60 MG CAPSULE.DR PO (09:51)
[2021-09-26] MEDS: Ferrous Sulfate 324 MG TABLET.DR PO (09:51)
[2021-09-26] MEDS: Benztropine Mesylate 0.5 MG TABLET PO (09:51)
[2021-09-26] MEDS: LORazepam 1 MG TABLET PO (09:51)
[2021-09-26] MEDS: Cyanocobalamin (Vitamin B-12) 1,000 MCG/ML VIAL 1000 MCG IM (09:52)
[2021-09-26] MEDS: 0.9 % Sodium Chloride Flush 3 ML SYRINGE IVFLUSH ×2 (09:54→16:23)
--- NOTE | 2021-09-26 10:27 | P.DS_ITS ---
DS: Providers Provider Date of Service: 09/26/21 Date of admission: 09/23/21 16:08 Primary care physician: Daljit Irby MD Consults: 09/23/21 16:15 Consult to Gastroenterology Routine Consulting Provider: Bib Arthur Reason for consultation: Gi bleed Has provider been notified: No 09/23/21 16:16 Consult to Psychiatry Routine Consulting Provider: Psych Covering Reason for consultation: panic symptoms Has provider been notified: No 09/24/21 07:39 Consult to Infectious Diseases Routine Consulting Provider: Sarahy Gregg Reason for consultation: sirs? Has provider been notified: No DS: Diagnosis Discharge Diagnosis (1) Anemia: Status: Acute DS: Summary Hospital Course Hospital Course: Chief Complaint: sob 60 y/o f Patient came to the hospital because of bipolar,severe anxiety,? short of breath actually she is hyperventilating when we saw the patient and very anxious, she does not noticed any neal blood in the stool or the did not vomit any blood either, she was? she was treated for presumed bronchitis acute and COPD.? She was sent with the p.o. prednisone and Augmentin at home,? she also takes baby aspirin at home and also ibuprofen. ?patient denies any nausea vomiting or abdominal pain or fever chills or cough or phlegm. denies any fever, says that she had some chills at home. ? Denies any chest pain or dizziness or headaches. ?she says that she is progressively getting short of breath and with severe anxiety it was getting more worse. ? But when she tried to sleep then feels better ?otherwise could able to answer questions with full sentences but seems very panic. ?lab imaging reviewed ?her H&H is 7.6, WBC count is 12.3 ?chest x-ray seems fine ?occult blood positive ?will add CT abdomen plain since patient does not have any abdominal symptoms ?lactic acidosis- seems more likely related to anemia/ GI bleed/ also dehydration,? Nebs. ? Patient in ED: Thought to be acute bronchitis and met SIRS criteria -patient was given 30 cc bolus antibiotics.? Blood cultures sent. ?social history: She lives with her friend Martin, smokes marijuana and also cigarette smoking a pack a day,? denies any alcohol or recreation drug use. Hospital course Patient was admitted due to sob associated with anemia, she underwent EGD on 09/25/[address] Arthur with the following findings and recommendation. 1. 2 nonbleeding gastric antral ulcers on posterior wall with clean bases and no bleeding--surrounding gastritis and edema, but I suspect these are benign. Multiple biopsies taken. 2. Duodenitis 3. Small hiatal hernia 4. Gastric antrum biopsied x3, R/O H.pylori 5. No sign of esophageal disease nor stricture/ring, therefore no dilation done Rec: Start po PPI BID x 2 months, and then QD halfway. Regular diet. Start po Iron and replete B12. She can see me in follow up to discuss a F/U EGD to assess for ulcer healing and a possible colonoscopy.? Thanks Will replace B12 with oral 1000mcg daily and to follow up with PCP and have level recheck in the near future. Time Spent with Patient Time attestation: Total time spent providing and/or coordinating discharge servi henrique: Discharge coordination time: Greater than 30 minutes Quality: Stroke Does the patient have a stroke diagnosis?: No Physical Exam Verdana 4l Vital Signs: Verdana 4d Verdana 4d Vital Signs: Verdana 4d Verdana 4Bd Last Vital Signs Verdana 4d E [employer] Specialist New 4d E [employer] Specialist New 4d Temp 97.7 F 09/26/21 07:35 E [employer] Specialist New 4d Pulse 102 H 09/26/21 07:37 E [employer] Specialist NewNew 4d Resp 16 09/26/21 07:37 BP 112/67 09/26/21 07:35 Pulse Ox 94 09/26/21 07:35 BMI result Body Mass Index 29.5 DS: Data Data Completed and Pending Pending studies at discharge: Pending at discharge 09/25/21 14:23 Surgical [PTH] Routine Labs on day of discharge: Laboratory Results - last 24 hr 09/26/21 09/26/21 05:30 05:30 WBC 8.3 Cancelled RBC 3.33 L Cancelled Hgb 8.0 L Cancelled Hct 25.2 L Cancelled MCV 75.7 L Cancelled MCH 24.0 L Cancelled MCHC 31.7 Cancelled RDW 22.5 H Cancelled Plt Count 268 Cancelled MPV 9.9 Cancelled Immature Gran % (Auto) 0.4 Neut % (Auto) 61.5 Lymph % (Auto) 27.5 [place] % (Auto) 7.8 Eos % (Auto) 2.4 Baso % (Auto) 0.4 Lymph # (Auto) 2.3 [place] # (Auto) 0.7 Eos # (Auto) 0.2 Baso # (Auto) 0.0 Abs Immat Gran (auto) 0.03 Absolute Neuts (auto) 5.1 Absolute Nucleated RBC 0.000 Cancelled Nucleated RBC % (auto) 0.0 Cancelled Preliminary micro results at discharge 09/23/21 14:52 Blood Culture - Preliminary Blood - Venous No growth after 48 hours. 09/23/21 14:52 Blood Culture - Preliminary Blood - Venous No growth after 48 hours. Discharge Plan Discharge Anticipated Discharge Date/Time: 09/26/21 10:40 Patient Disposition: Home, Self-Care Discharge Diagnosis: GIB, acute blood anemia, iron deficiency, B12 deficiency Referrals: Daljit Irby MD [Primary Care Provider] - 1 Week Discharge Medications: New omeprazole 40 mg capsule,delayed release(DR/EC) 40 mg PO BID 56 Days Qty: 112 RF: 1 cyanocobalamin (vitamin B-12) [Vitamin B-12] 1,000 mcg tablet extended release 1,000 mcg PO DAILY Qty: 90 RF: 0 ferrous sulfate 325 mg (65 mg iron) tablet 325 mg PO DAILY Qty: 30 RF: 0 Continued benztropine 0.5 mg Tablet 0.5 mg PO DAILY RF: 0 risperidone [Risperdal] 4 mg Tablet 6 mg PO BEDTIME RF: 0 benztropine 0.5 mg Tablet 1 mg PO BEDTIME RF: 0 lamotrigine 200 mg Tablet 200 mg PO BEDTIME RF: 0 duloxetine 60 mg Capsule, Delayed Rel Sprinkle 60 mg PO BID RF: 0 trazodone 100 mg Tablet 100 mg PO BEDTIME RF: 0 albuterol sulfate 90 mcg/actuation HFA aerosol inhaler 1 inh inhalation QID PRN (Reason: shortness of breath or wheezing) Qty: 6.7 RF: 0 Discharge Orders: Discharge Order (Routine); Ordered 09/26/21 Ordered By: Yefri Brooks Diet: advance to usual diet Activity on Discharge: As tolerated Stand Alone Forms: Patient Portal Discharge page Care Plan Goals: Full resolution of anemia Health Concerns: GI Bleeding, acute blood loss anemia, Plan of Treatment: Take Prilosec 40 mg twice daily for 8 weeks, then once daily after 8 weeks Take Vitamin B12 as recommended Follow up with Dr. Arthur, follow up with your PCP Avoid alcohol, smoking or avoid taking NSAID (Motrin, advil,,,,check OTC meds with pharmarcist Assessment: As above
--- NOTE | 2021-09-26 14:34 | HO.POSTANES ---
Post Anesthesia Evaluation Post Anesthesia Evaluation Vital Signs: Vital Signs Temp Pulse Resp BP Pulse Ox 09/26/21 11:44 87 20 09/26/21 11:28 97.5 F 96 18 107/72 97 09/26/21 07:37 102 H 16 09/26/21 07:35 97.7 F 102 H 18 112/67 94 09/26/21 04:00 97.4 F 93 16 105/60 98 Anesthesia: Monitored Mental Status: Awake Pain Control: Satisfactory Nausea/Vomiting: None Hydration: Adequate Anesthesia-Related Issues: No Anes. Related Issues
--- NOTE | 2021-09-26 14:51 | MHC.CM.PN ---
PT DISCHARGING HOME SELF-CARE, PT TO ARRANGE TRANSPORT
== END 2021-09-26 18:31 | disposition home or self-care (01) | DRG 241 ==
LOC: HO.ED 15:33 → HO.EDOVER 16:25 → HO.S3 09-24 05:37
PROVIDERS: Internal Medicine; Admitting Provider Internal Medicine; Emergency Provider Emergency Medicine; PCP Internal Medicine; Visit Provider Internal Medicine
PROC: 0DB78ZX Excision of Stomach, Pylorus, Via Natural or Artificial Opening Endoscopic, Diagnostic (ICD-10-PCS; principal; 2021-09-25 13:40)
DX: K29.71 Gastritis, unspecified, with bleeding (principal); E87.2 Acidosis; R65.10 Systemic inflammatory response syndrome (SIRS) of non-infectious origin without acute organ dysfunction; J44.1 Chronic obstructive pulmonary disease with (acute) exacerbation; D62 Acute posthemorrhagic anemia; E86.0 Dehydration; K25.4 Chronic or unspecified gastric ulcer with hemorrhage; R19.00 Intra-abdominal and pelvic swelling, mass and lump, unspecified site; K44.9 Diaphragmatic hernia without obstruction or gangrene; K29.81 Duodenitis with bleeding; F41.9 Anxiety disorder, unspecified; F31.9 Bipolar disorder, unspecified; F17.210 Nicotine dependence, cigarettes, uncomplicated; Z20.822 Contact with and (suspected) exposure to COVID-19; Z71.6 Tobacco abuse counseling; Z79.899 Other long term (current) drug therapy
CPT/HCPCS: 36415; 36430; 71045; 72197; 74176; 80048; 80053; 82272; 82607; 82728; 82746; 82947; 83540; 83605; 83880; 84145; 84484; 85014; 85018; 85025; 85610; 86850; 86900; 86901; 86923; 87040; 87635; 88305; 88342; 93005; 94640; 94644; 94645; 96365; 96366; 96375; 99285; 99291; A9585; J1956; J2060; J2930; J3475; P9016

== ENCOUNTER 2021-09-30 13:54 | Emergency (ER) | payer MEDICAID, SELFPAY ==
--- NOTE | ~2021-09-30 | XR_ITS ---
EXAMINATION: XR CHEST CLINICAL INFORMATION: SOB COMPARISON: Chest 09/23/2021 TECHNIQUE: Frontal view of the chest was obtained. FINDINGS: No significant abnormality is noted involving the heart, lungs, mediastinum, bony thorax or soft tissues. XR/XR chest 1V IMPRESSION: Unremarkable chest examination.
[2021-09-30 14:06] VITALS: BP 141/121; PULSE 100; RESP 26; TEMP 36.7; O2SAT 99; BMI 29.0
[2021-09-30 16:12] LABS: COVID-19 Test Negative (Negative)
--- NOTE | 2021-09-30 16:30 | ED_ITS ---
HPI - General Adult Related Data Home Medications Medication Instructions Recorded Confirmed benztropine 0.5 mg tablet 1 mg PO BEDTIME 09/01/21 09/23/21 duloxetine 60 mg capsule,delayed 60 mg PO BID 09/01/21 09/23/21 release sprinkle lamotrigine 200 mg tablet 200 mg PO BEDTIME 09/01/21 09/23/21 trazodone 100 mg tablet 100 mg PO BEDTIME 09/01/21 09/23/21 benztropine 0.5 mg tablet 0.5 mg PO DAILY 09/23/21 09/23/21 risperidone 4 mg tablet (Risperdal) 6 mg PO BEDTIME 09/23/21 09/23/21 Previous Rx's Medication Instructions Recorded albuterol sulfate 90 mcg/actuation 1 inh INHALATION QID PRN #6.7 g 09/01/21 aerosol inhaler cyanocobalamin (vitamin B-12) 1,000 mcg PO DAILY #90 tab 09/26/21 1,000 mcg tablet,extended release (Vitamin B-12 ER) ferrous sulfate 325 mg (65 mg 325 mg PO DAILY #30 tab 09/26/21 iron) tablet omeprazole 40 mg capsule,delayed 40 mg PO BID 56 Days #112 cap 09/26/21 release lorazepam 0.5 mg tablet 0.5 mg PO BID PRN #10 tab 09/30/21 Allergies Allergy/AdvReac Type Severity Reaction Status Date / Time No Known Allergies Allergy Verified 09/23/21 13:19 Review of Systems Review of Systems: Constitutional : No Weight loss, No Fever, No Chills, No Night Sweats, No Fatigue, No Malaise ENT/Mouth : No Hearing loss, No Ear Pain, No Nasal Congestion, No Sinus Pain, No Hoarseness, No sore throat, No Rhinorrhea, No Swallowing Difficulty Eyes: No Eye Pain, No Swelling, No Redness, No Foreign Body, No Discharge, No Vision Changes Cardiovascular : No Chest Pain, SOB, Dyspnea on Exertion, No Orthopnea, No Edema, No Palpitations Respiratory : No Cough, No Sputum, No Wheezing, No Smoke Exposure, No Dyspnea Gastrointestinal : No Nausea, No Vomiting, No Diarrhea, No Constipation, No abdominal Pain, No Hematochezia, No Melena Genitourinary : no irregular bleeding, No Dysuria, No Urinary Frequency, No He maturia, No Urinary Incontinence, No Urgency, No Flank Pain, No Urinary Flow Changes, No Hesitancy Musculoskeletal : No joint pain, No Myalgias, No Joint Swelling Skin : No Skin Lesions, No rash Neuro : No Weakness, No Numbness, No Paresthesias, No Loss of Consciousness, No Dizziness, No Headache Psych : Anxiety/Panic, No Depression, No SI/HI/AH/VH, No Social Issues, Yes all other systems are reviewed and are negative [facility] Past Medical History Medical History Anemia COPD (chronic obstructive pulmonary disease) Hx of head injury Surgical History H/O: hysterectomy History of mandibular surgery Hx of colonoscopy Social History Social History Household Members: Spouse Housing: House Do you presently have visiting nurse or other home services: Yes Alcohol intake: unknown Patient Tobacco Use Status: Current everyday Tobacco user Tobacco use type: Cigarette Cigarette Packs Per Day: 1 Cigarettes Per Day: 20.0 Second Hand Smoke Exposure: No Substance Use Type: Marijuana Advance Directives: No Advance Directives Information Provided: Yes Current occupational status: employed Physical Exam Vital Signs: Vital Signs: Last Vital Signs Temp 989 F H 09/30/21 18:40 Pulse 101 H 09/30/21 18:40 Resp 29 H 09/30/21 18:40 BP 105/66 09/30/21 18:40 Pulse Ox 98 09/30/21 18:40 BMI result Body Mass Index 29.0 Const: General: healthy appearing, no acute distress and well developed Nutritional Appearance: well nourished Orientation/consciousness: patient oriented x3 HENMT: Head: Yes normal to inspection, Yes normocephalic and Yes atraumatic Face and sinus: Yes normal facial exam Mouth: Normal oral and palatal mucosa present Throat: Yes posterior oropharynx normal, Yes tonsils normal and Yes uvula midline Eyes: General: appearance normal, both eyes and all related structures Neck: Neck: Yes normal visual inspection, Yes full ROM and Yes trachea midline Thyroid: Thyroid normal Resp: Effort & Inspection: normal respiratory effort, not able to speak in complete sentences, audible wheezes, labored, no tracheal deviation, uses accessory muscles and symmetric chest movement Auscultation: wheezes and diminished lung sounds Cardio: Other: 60-year-old female with past medical history of bipolar, anxiety, anemia, active smoker 1 pack per day for over 40 years presenting here today for shortness of breath. Patient reports that she has been short of breath on and off for the last 2 weeks. Patient denies fever or chills. Denies any ill contacts. Patient reports that she does have dry cough with no sputum production. Patient does report that she suffers from severe anxiety. Recently has been going under lot of stress financially. Patient had Paul [employer] Paul vaccine back in January of 2021. Patient has been admitted back on September 23 for blood loss. Patient was diagnosed with anemia, was found to have 2 nonbleeding gastric ulcers, duodenitis found by upper endoscopy. Patient was sent home on PPIs b.i.d. for 2 months, however she reports that she has not been taking that because she has not been feeling too well. Patient has smoked one pack of cigarettes every day. Jugular venous distension: no JVD Rate: regular rate Heart sounds: S1 normal heart sound present, S2 normal heart sound present, no gallops and no murmurs GI: Inspection: Yes normal to inspection and No distended Palpation (GI): Soft to palpation, not firm, nontender and No hepatosplenomegaly present Auscultation: normal bowel sounds : General: Yes no CVA tenderness Back/Spine/Pelvis: Back: no CVA tenderness Skin: General skin exam: elasticity normal, turgor normal and dry skin Neuro: General: patient oriented x3 Psych: Appearance: grossly normal Mental Status: mental status grossly normal Speech and movement: Normal speech and movement present Affect: normal affect Attitude: cooperative Thought process: Normal thought process present Thought content: Normal thought content present Insight: Good insight present (Psych) Judgement: Good judgement present (Psych) Course Course Course Narrative: 60-year-old female with past medical history of anemia, anxiety disorder, active smoker of 1 pack a day for over 40 years is here today for recurrent shortness of breath. Patient reports that she has dry cough with no sputum production. Denies any fever or chills. History of Paul & Paul vaccine back in January of 2021. Patient was recently seen in the ER and admitted for anemia due to chronic blood loss. Patient was found to have antral gastric ulcers, was sent home on PPI b.i.d. for 2 months however patient reports that she has not been taking it as she has not been feeling well. Patient has not been taking ferrous sulfate as well. She continues to smoke 1 pack a day. Patient denies CP, palpitations, presyncope, syncope. Reports to be short of breath even at rest. Patient also reports that she is very anxious and suffers from lot of stress at home due to financial reasons. Patient is on risperidone 6 mg at bedtime. Chest x-ray done in the waiting room and is negative for any acute processes. COVID-19 negative. Patient does have expiratory and inspiratory wheezes, using accessory muscles when breathing. Will do CBC, BMP, EKG, albuterol updraft. Patient is extremely anxious we will medicate her with Ativan 1 mg IV. Reevaluation(s) Reevaluation #1: Patient reports to be feeling better, H&H 9.1 and 27.7, no leukocytosis. Potassium 5.2 Kayexalate given to patient. Breathing much improved. Lung sounds clear. Discussed with patient the importance of stopping smoking. D-dimer less than 150. Patient will be discharged home to follow-up with PCP, GI, and pulmonology. Patient is agreeable to this plan reports that she is feeling fine to go home. I will give her script for Ativan on as needed basis. Patient reports that she stopped taking her risperidol about a month ago. Medical Decision Making Lab Data Result diagrams: 09/30/21 17:04 09/30/21 17:04 Labs: Lab Results 09/30/21 09/30/21 09/30/21 Range/Units 15:53 17:04 17:04 WBC 10.6 (4.8-10.8) X10*3/uL RBC 3.69 L (4.20-5.50) X10*6/uL Hgb 9.1 L (12.0-16.0) g/dl Hct 27.7 L (37.0-47.0) % MCV 75.1 L (80.0-98.0) fL MCH 24.7 L (27.0-33.0) pg MCHC 32.9 (31.0-35.0) g/dl RDW 22.1 H (11.0-16.0) % Plt Count 386 D (160-400) X10*3/uL MPV 9.4 (9.4-12.3) fL Immature Gran % (Auto) 0.3 (0.0-0.4) % Neut % (Auto) 62.7 (45-73) % Lymph % (Auto) 25.3 (20-40) % [place] % (Auto) 9.6 (2-11) % Eos % (Auto) 1.6 (0-4) % Baso % (Auto) 0.5 (0-2) % Lymph # (Auto) 2.7 (1.2-4.9) X10*3/uL [place] # (Auto) 1.0 (0.1-1.2) X10*3/uL Eos # (Auto) 0.2 (0.0-0.4) X10*3/uL Baso # (Auto) 0.1 (0.0-0.2) X10*3/uL Abs Immat Gran (auto) 0.03 (0.00-0.03) X10*3/uL Absolute Neuts (auto) 6.6 (2.0-8.3) x10*3/uL Absolute Nucleated RBC 0.000 (0.0-0.012) X10*3/uL Nucleated RBC % (auto) 0.0 (0.0-0.2) /100WBC D-Dimer High Sensitivty NG/ML Sodium 141 (135-145) mmol/L Potassium 5.2 H (3.3-5.1) mmol/L Chloride 114 H (96-108) mmol/L Carbon Dioxide 22 (22-29) mmol/L Anion Gap 10 L (12-20) BUN 8 L (9-16) mg/dL Creatinine 0.74 (0.5-1.4) mg/dL Estim Creat Clear Calc 88.1 Estimated GFR > 60 Random Glucose 96 (60-115) mg/dL Calcium 8.9 (8.4-10.2) mg/dL COVID-19 (YULISSA) Negative (Negative) COVID-19 Clin Com See Note 09/30/21 Range/Units 18:49 WBC (4.8-10.8) X10*3/uL RBC (4.20-5.50) X10*6/uL Hgb (12.0-16.0) g/dl Hct (37.0-47.0) % MCV (80.0-98.0) fL MCH (27.0-33.0) pg MCHC (31.0-35.0) g/dl RDW (11.0-16.0) % Plt Count (160-400) X10*3/uL MPV (9.4-12.3) fL Immature Gran % (Auto) (0.0-0.4) % Neut % (Auto) (45-73) % Lymph % (Auto) (20-40) % [place] % (Auto) (2-11) % Eos % (Auto) (0-4) % Baso % (Auto) (0-2) % Lymph # (Auto) (1.2-4.9) X10*3/uL [place] # (Auto) (0.1-1.2) X10*3/uL Eos # (Auto) (0.0-0.4) X10*3/uL Baso # (Auto) (0.0-0.2) X10*3/uL Abs Immat Gran (auto) (0.00-0.03) X10*3/uL Absolute Neuts (auto) (2.0-8.3) x10*3/uL Absolute Nucleated RBC (0.0-0.012) X10*3/uL Nucleated RBC % (auto) (0.0-0.2) /100WBC D-Dimer High Sensitivty < 150 NG/ML Sodium (135-145) mmol/L Potassium (3.3-5.1) mmol/L Chloride (96-108) mmol/L Carbon Dioxide (22-29) mmol/L Anion Gap (12-20) BUN (9-16) mg/dL Creatinine (0.5-1.4) mg/dL Estim Creat Clear Calc Estimated GFR Random Glucose (60-115) mg/dL Calcium (8.4-10.2) mg/dL COVID-19 (YULISSA) (Negative) COVID-19 Clin Com Discharge Plan Discharge Clinical Impression: Panic anxiety syndrome, COPD (chronic obstructive pulmonary disease) Patient Disposition: Home, Self-Care Instructions: COPD (Chronic Obstructive Pulmonary Disease) (ED), Anxiety (ED) Additional Instructions: You were seen here today for shortness of breath. Your x-ray was normal, you were negative for COVID-19. Please follow-up with your PCP in 1 week. Please call pulmonology office for appointment. Make sure that you call your GI specialist for further care and possible colonoscopy scheduling. Please take omeprazole twice a day as ordered by Dr. Arthur. You will be sent home with small dose of anti anxiety medication that you can take up to twice a day. Please stop smoking. You may return to emergency department if her symptoms will get worse or if you experience any additional concerning symptoms. Prescriptions: New lorazepam 0.5 mg tablet 0.5 mg PO BID PRN (Reason: anxiety) Qty: 10 RF: 0 No Action benztropine 0.5 mg Tablet 0.5 mg PO DAILY RF: 0 risperidone [Risperdal] 4 mg Tablet 6 mg PO BEDTIME RF: 0 omeprazole 40 mg capsule,delayed release(DR/EC) 40 mg PO BID 56 Days Qty: 112 RF: 1 cyanocobalamin (vitamin B-12) [Vitamin B-12] 1,000 mcg tablet extended release 1,000 mcg PO DAILY Qty: 90 RF: 0 ferrous sulfate 325 mg (65 mg iron) tablet 325 mg PO DAILY Qty: 30 RF: 0 benztropine 0.5 mg Tablet 1 mg PO BEDTIME RF: 0 lamotrigine 200 mg Tablet 200 mg PO BEDTIME RF: 0 duloxetine 60 mg Capsule, Delayed Rel Sprinkle 60 mg PO BID RF: 0 trazodone 100 mg Tablet 100 mg PO BEDTIME RF: 0 albuterol sulfate 90 mcg/actuation HFA aerosol inhaler 1 inh inhalation QID PRN (Reason: shortness of breath or wheezing) Qty: 6.7 RF: 0 Referrals: Daljit Irby MD [Primary Care Provider] - 1 week Supa Sullivan MD [Physician] - 10 days (COPD evaluation) Interventions: ED Discharge Assessment Last Done: 09/30/21 19:50 Discharge Date/Time: 09/30/21 20:18 Print Language: Azeri
--- NOTE | 2021-09-30 16:36 | ECG_ITS ---
Test Reason : dyspnea Blood Pressure : / mmHG Vent. Rate : 077 BPM Atrial Rate : 077 BPM P-R Int : 158 ms QRS Dur : 084 ms QT Int : 410 ms P-R-T Axes : 059 015 030 degrees QTc Int : 463 ms Poor data quality Normal sinus rhythm Normal ECG When compared with ECG of 23-SEP-2021 13:28, Vent. rate has decreased BY 45 BPM Referred By: Emma Acosta Electronically Signed By:RODGER DAHL MD
[2021-09-30 16:45] VITALS: BP 140/81; PULSE 79; RESP 20; TEMP 36.8; O2SAT 100
[2021-09-30] MEDS: Albuterol Sulfate (0.083%) 2.5 MG/3 ML VIAL.NEB 5 MG INHALE (16:46)
[2021-09-30 16:51] VITALS: PULSE 83; RESP 20; O2SAT 99
[2021-09-30 17:08] LABS: MANUAL DIFF FLAG NO
[2021-09-30 17:10] LABS: Basophils Absolute Auto 0.1 X10*3/uL (0.0-0.2); Basophils Percent Auto 0.5 % (0-2); Eosinophils Absolute Auto 0.2 X10*3/uL (0.0-0.4); Eosinophils Percent Auto 1.6 % (0-4); Hematocrit 27.7 % (37.0-47.0); Hemoglobin 9.1 g/dl (12.0-16.0); Imm Gran Abs Auto 0.03 X10*3/uL (0.00-0.03); Imm Gran Pct Auto 0.3 % (0.0-0.4); Lymphocytes Absolute Auto 2.7 X10*3/uL (1.2-4.9); Lymphocytes Percent Auto 25.3 % (20-40); Mean Corpuscular HGB Conc 32.9 g/dl (31.0-35.0); Mean Corpuscular Hemoglobin 24.7 pg (27.0-33.0); Mean Corpuscular Volume 75.1 fL (80.0-98.0); Mean Platelet Volume 9.4 fL (9.4-12.3); Monocytes Percent Auto 9.6 % (2-11); Neutrophils Absolute Auto 6.6 x10*3/uL (2.0-8.3); Neutrophils Percent Auto 62.7 % (45-73); Platelet Count 386 X10*3/uL (160-400); Red Blood Count 3.69 X10*6/uL (4.20-5.50); Red Cell Distribution Width 22.1 % (11.0-16.0); White Blood Count 10.6 X10*3/uL (4.8-10.8)
[2021-09-30] MEDS: LORazepam 2 MG/ML VIAL 1 MG IVPUSH (17:10)
[2021-09-30 17:24] LABS: Anion Gap 10 (12-20); Blood Urea Nitrogen 8 mg/dL (9-16); Calcium 8.9 mg/dL (8.4-10.2); Carbon Dioxide 22 mmol/L (22-29); Chloride 114 mmol/L (96-108); Creatinine Clr Calc Pharmacy 88.1; Estimated Glomerular Filt Rate > 60; Glucose Random 96 mg/dL (60-115); Potassium 5.2 mmol/L (3.3-5.1); Sodium 141 mmol/L (135-145)
[2021-09-30 18:40] VITALS: BP 105/66; PULSE 101; RESP 29; TEMP 531.6; TEMP 989; O2SAT 98
[2021-09-30] MEDS: Sodium Polystyrene Sulfon/Sorb 15 GM/60 ML ORAL.SUSP 30 GM PO (19:09)
[2021-09-30 19:30] LABS: D Dimer High Sensitivity < 150 NG/ML
--- NOTE | 2021-09-30 19:49 | PC.NURSE ---
Per [facility] patient's D-Dimer is good so practicioner is discharging patient.
== END 2021-09-30 20:18 | disposition home or self-care (01) ==
PROVIDERS: Nurse Practitioner Family; Emergency Provider Emergency Medicine; PCP Internal Medicine
DX: F41.0 Panic disorder [episodic paroxysmal anxiety] (principal); J44.9 Chronic obstructive pulmonary disease, unspecified; Z20.822 Contact with and (suspected) exposure to COVID-19; R06.02 Shortness of breath; F17.200 Nicotine dependence, unspecified, uncomplicated; F12.90 Cannabis use, unspecified, uncomplicated
CPT/HCPCS: 36415; 71045; 80048; 85025; 85379; 87635; 93005; 94640; 96374; 99284; J2060

== ENCOUNTER 2022-02-14 02:20 | Emergency (ER) | payer MEDICAID, SELFPAY ==
[2022-02-14] VITALS (13 sets, daily range): BP systolic 107–135; BP diastolic 44–76; PULSE 70–108; RESP 16–22; TEMP -15.5–36.9; O2SAT 91–100; BMI 32.1
--- NOTE | 2022-02-14 | ECG_ITS ---
Test Reason : chest pain Blood Pressure : / mmHG Vent. Rate : 090 BPM Atrial Rate : 090 BPM P-R Int : 150 ms QRS Dur : 092 ms QT Int : 396 ms P-R-T Axes : 057 036 061 degrees QTc Int : 484 ms Normal sinus rhythm Low voltage QRS Prolonged QT Abnormal ECG When compared with ECG of 30-SEP-2021 16:51, Non-specific change in ST segment in Inferior leads Referred By: Generic ED Physician Electronically Signed By:Norman Montoya
--- NOTE | ~2022-02-14 | CT_ITS ---
EXAMINATION: CT HEAD WITHOUT CONTRAST CLINICAL INFORMATION: Fall COMPARISON: None TECHNIQUE: Contiguous axial imaging was performed from the skull base to vertex without intravenous administration of contrast. This CT examination was performed using dose optimization techniques as appropriate, variously including the following: *Automated exposure control *Adjustment of mA and/or kV according to patient size (this includes techniques or standardized protocols for targeted exams where dose is matched to indication/reason for exam; i.e. extremities or head) *Use of iterative reconstruction technique DLP: 717 mGy-cm FINDINGS: There is no evidence of acute intracranial hemorrhage or territorial infarction. No abnormal mass effect or midline shift is seen. Martins to white matter differentiation is well preserved. No extra-axial fluid collections are identified. The ventricles are normal in size. There is no abnormal attenuation within the brain parenchyma. The osseous structures and soft tissues are normal. The mastoid air cells and visualized portions of the paranasal sinuses are well aerated. CT/CT head/brain wo con IMPRESSION: No acute intracranial pathology.
[2022-02-14 02:52] LABS: MANUAL DIFF FLAG NO
[2022-02-14 02:53] LABS: Basophils Absolute Auto 0.1 X10*3/uL (0.0-0.2); Basophils Percent Auto 0.4 % (0-2); Eosinophils Absolute Auto 0.4 X10*3/uL (0.0-0.4); Eosinophils Percent Auto 2.8 % (0-4); Imm Gran Abs Auto 0.07 X10*3/uL (0.00-0.03); Imm Gran Pct Auto 0.6 % (0.0-0.4); Lymphocytes Absolute Auto 3.3 X10*3/uL (1.2-4.9); Lymphocytes Percent Auto 26.3 % (20-40); Mean Corpuscular HGB Conc 31.1 g/dl (31.0-35.0); Mean Corpuscular Hemoglobin 20.9 pg (27.0-33.0); Mean Corpuscular Volume 67.2 fL (80.0-98.0); Mean Platelet Volume 9.3 fL (9.4-12.3); Monocytes Absolute Auto 0.8 X10*3/uL (0.1-1.2); Monocytes Percent Auto 6.4 % (2-11); Neutrophils Absolute Auto 8.1 x10*3/uL (2.0-8.3); Neutrophils Percent Auto 63.5 % (45-73); Platelet Count 311 X10*3/uL (160-400); Red Blood Count 3.11 X10*6/uL (4.20-5.50); Red Cell Distribution Width 18.6 % (11.0-16.0); White Blood Count 12.7 X10*3/uL (4.8-10.8)
[2022-02-14 02:56] LABS: Hematocrit 20.9 % (37.0-47.0); Hemoglobin 6.5 g/dl (12.0-16.0)
--- NOTE | 2022-02-14 03:04 | ED_ITS ---
HPI - SOB/Dyspnea General Chief Complaint: Dyspnea Stated Complaint: sob (COPD), dizziness & fall (R arm abrasion) Time Seen by Provider: 02/14/22 03:00 Source: patient and old records reviewed Mode of arrival: ambulatory Limitations: no limitations History of Present Illness HPI Narrative: 61 yo female with hx of COPD, anemia with PUD usually on PPI but ran out on - hx of GIB requiring transfusion notes dark stools since Saturday on and off. Feels short of breath, dizzy, weak and did fall today R arm abrasion no head strike. She takes baby ASA a day and occasionally motrin for a headache. MD elicited complaint: shortness of breath Pertinent past history: COPD and other (anemia) Onset (ago): day(s) (5) Context: other (hx of PUD, GIB off PPI since ) Timing: constant Severity: moderate Exacerbating factors: exertion Relieving factors: rest Known history of: COPD Associated symptoms: dizziness and lightheadedness Treatment prior to arrival: none Related Data Home Medications Medication Instructions Recorded Confirmed benztropine 0.5 mg tablet 1 mg PO BEDTIME 09/01/21 09/23/21 duloxetine 60 mg capsule,delayed 60 mg PO BID 09/01/21 09/23/21 release sprinkle lamotrigine 200 mg tablet 200 mg PO BEDTIME 09/01/21 09/23/21 trazodone 100 mg tablet 100 mg PO BEDTIME 09/01/21 09/23/21 benztropine 0.5 mg tablet 0.5 mg PO DAILY 09/23/21 09/23/21 risperidone 4 mg tablet (Risperdal) 6 mg PO BEDTIME 09/23/21 09/23/21 Previous Rx's Medication Instructions Recorded albuterol sulfate 90 mcg/actuation 1 inh INHALATION QID PRN #6.7 g 09/01/21 aerosol inhaler cyanocobalamin (vitamin B-12) 1,000 mcg PO DAILY #90 tab 09/26/21 1,000 mcg tablet,extended release (Vitamin B-12 ER) ferrous sulfate 325 mg (65 mg 325 mg PO DAILY #30 tab 09/26/21 iron) tablet omeprazole 40 mg capsule,delayed 40 mg PO BID 56 Days #112 cap 09/26/21 release lorazepam 0.5 mg tablet 0.5 mg PO BID PRN #10 tab 09/30/21 Allergies Allergy/AdvReac Type Severity Reaction Status Date / Time No Known Allergies Allergy Verified 09/23/21 13:19 Review of Systems Review of Systems: Constitutional : No Weight loss, No Fever, No Chills, pos Fatigue, pos Malaise ENT/Mouth : No sore throat, No Rhinorrhea Eyes: No Eye Pain, No Swelling, No Redness Cardiovascular : No Chest Pain, pos SOB, pos Dyspnea on Exertion, No Orthopnea, No Edema, No Palpitations Respiratory : No Cough, No Sputum, No Wheezing Gastrointestinal : No Nausea, No Vomiting, No Diarrhea, No Constipation, No abdominal Pain, No Hematochezia, pos Melena Genitourinary : No Dysuria, No Urinary Frequency, No Hematuria, Musculoskeletal : No joint pain, No Myalgias, No Joint Swelling Skin : No Skin Lesions, No rash Neuro : pos Weakness, No Numbness, No Dizziness, No Headache Psych : No Anxiety/Panic, No Depression Heme/Lymph: No Bruising, No Bleeding,No Lymphadenopathy Endocrine : No Polyuria, No Polydipsia All other systems reviewed and are negative [facility] Past Medical History Attestation statement: The following information was validated with the patient. Medical History Anemia COPD (chronic obstructive pulmonary disease) Hx of head injury Panic anxiety syndrome Pelvic mass Surgical History H/O: hysterectomy History of mandibular surgery Hx of colonoscopy Social History Social History Household Members: Spouse Housing: House Do you presently have visiting nurse or other home services: Yes Alcohol intake: unknown Patient Tobacco Use Status: Current everyday Tobacco user Tobacco use type: Cigarette Cigarette Packs Per Day: 1 Cigarettes Per Day: 20.0 Second Hand Smoke Exposure: No Substance Use Type: Marijuana Advance Directives: No Advance Directives Information Provided: No Current occupational status: employed Physical Exam Vital Signs: Vital Signs: Last Vital Signs Temp 98.2 F 02/14/22 05:05 Pulse 95 02/14/22 05:05 Resp 18 02/14/22 05:05 BP 114/66 02/14/22 05:05 Pulse Ox 98 02/14/22 05:05 BMI result Body Mass Index 32.1 Appearance: Alert. Oriented X3. No acute distress. Eyes: Pupils equal, round and reactive to light. ENT: Pharynx normal. Neck: Normal inspection. Neck supple. CVS: Normal heart rate and rhythm. Pulses normal. Respiratory: No respiratory distress. Breath sounds diminished Abdomen: Soft and nontender. Rectal: dark stools Skin: Skin warm and dry. pale skin color. Normal skin turgor. abrasion R forearm Extremities: No lower extremity edema. No calf ttp Neuro: Oriented X 3. No motor deficit. No sensory deficit. Course Course Course Narrative: VS stable, plan to admit VS stable, doing well will admit, covering night hospitalist to sign out to day team MDM - SOB/Dyspnea MDM Narrative Medical decision making narrative: 61 yo female with hx of COPD, anemia with PUD off of her PPI since taking ASA and occasional motrin - black stools at home feeling ELIZONDO and lightheaded found to be anemic. At this time will start on protonix, start transfusions and plan to admit for further transfusions and workup. Patient also fell and denies head injury but did fall down stairs - CT head ordered. Planned admit. Lab Data Result diagrams: 02/14/22 02:47 02/14/22 02:47 Labs: Lab Results 02/14/22 02/14/22 02/14/22 Range/Units 02:38 02:38 02:47 WBC 12.7 H (4.8-10.8) X10*3/uL RBC 3.11 L (4.20-5.50) X10*6/uL Hgb 6.5 L* D (12.0-16.0) g/dl Hct 20.9 L* D (37.0-47.0) % MCV 67.2 L (80.0-98.0) fL MCH 20.9 L (27.0-33.0) pg MCHC 31.1 (31.0-35.0) g/dl RDW 18.6 H (11.0-16.0) % Plt Count 311 (160-400) X10*3/uL MPV 9.3 L (9.4-12.3) fL Immature Gran % (Auto) 0.6 H (0.0-0.4) % Neut % (Auto) 63.5 (45-73) % Lymph % (Auto) 26.3 (20-40) % [place] % (Auto) 6.4 (2-11) % Eos % (Auto) 2.8 (0-4) % Baso % (Auto) 0.4 (0-2) % Lymph # (Auto) 3.3 (1.2-4.9) X10*3/uL [place] # (Auto) 0.8 (0.1-1.2) X10*3/uL Eos # (Auto) 0.4 (0.0-0.4) X10*3/uL Baso # (Auto) 0.1 (0.0-0.2) X10*3/uL Abs Immat Gran (auto) 0.07 H (0.00-0.03) X10*3/uL Absolute Neuts (auto) 8.1 (2.0-8.3) x10*3/uL Absolute Nucleated RBC 0.000 (0.0-0.012) X10*3/uL Nucleated RBC % (auto) 0.0 (0.0-0.2) /100WBC PT (9.9-13.0) SEC INR (0.9-1.1) Sodium (135-145) mmol/L Potassium (3.3-5.1) mmol/L Chloride (96-108) mmol/L Carbon Dioxide (22-29) mmol/L Anion Gap (12-20) BUN (9-16) mg/dL Creatinine (0.5-1.4) mg/dL Estim Creat Clear Calc Estimated GFR Random Glucose (60-115) mg/dL Calcium (8.4-10.2) mg/dL Total Bilirubin (0.0-1.0) mg/dL AST (5-31) U/L ALT (0-31) U/L Alkaline Phosphatase (39-117) U/L Total Protein (6.5-8.0) g/dL Albumin (3.5-5.0) g/dL Stool Occult Blood (NEGATIVE) COVID-19 (YULISSA) Negative (Negative) COVID-19 Clin Com See Note Influenza Type A (EVIE) Negative (Negative) Influenza Type B (EVIE) Negative (Negative) Influenza A & B Note See Note Blood Type Antibody Screen Crossmatch 02/14/22 02/14/22 02/14/22 Range/Units 02:47 03:57 03:57 WBC (4.8-10.8) X10*3/uL RBC (4.20-5.50) X10*6/uL Hgb (12.0-16.0) g/dl Hct (37.0-47.0) % MCV (80.0-98.0) fL MCH (27.0-33.0) pg MCHC (31.0-35.0) g/dl RDW (11.0-16.0) % Plt Count (160-400) X10*3/uL MPV (9.4-12.3) fL Immature Gran % (Auto) (0.0-0.4) % Neut % (Auto) (45-73) % Lymph % (Auto) (20-40) % [place] % (Auto) (2-11) % Eos % (Auto) (0-4) % Baso % (Auto) (0-2) % Lymph # (Auto) (1.2-4.9) X10*3/uL [place] # (Auto) (0.1-1.2) X10*3/uL Eos # (Auto) (0.0-0.4) X10*3/uL Baso # (Auto) (0.0-0.2) X10*3/uL Abs Immat Gran (auto) (0.00-0.03) X10*3/uL Absolute Neuts (auto) (2.0-8.3) x10*3/uL Absolute Nucleated RBC (0.0-0.012) X10*3/uL Nucleated RBC % (auto) (0.0-0.2) /100WBC PT (9.9-13.0) SEC INR (0.9-1.1) Sodium 139 (135-145) mmol/L Potassium 3.2 L D (3.3-5.1) mmol/L Chloride 109 H (96-108) mmol/L Carbon Dioxide 23 (22-29) mmol/L Anion Gap 10 L (12-20) BUN 17 H D (9-16) mg/dL Creatinine 0.78 (0.5-1.4) mg/dL Estim Creat Clear Calc 72.0 Estimated GFR > 60 Random Glucose 127 H (60-115) mg/dL Calcium 8.6 (8.4-10.2) mg/dL Total Bilirubin 0.3 (0.0-1.0) mg/dL AST 10 (5-31) U/L ALT 8 (0-31) U/L Alkaline Phosphatase 71 D (39-117) U/L Total Protein 5.8 L (6.5-8.0) g/dL Albumin 3.5 (3.5-5.0) g/dL Stool Occult Blood POSITIVE (NEGATIVE) COVID-19 (YULISSA) (Negative) COVID-19 Clin Com Influenza Type A (EVIE) (Negative) Influenza Type B (EVIE) (Negative) Influenza A & B Note Blood Type Cancelled Antibody Screen Cancelled Crossmatch See Detail 02/14/22 02/14/22 Range/Units 04:14 04:14 WBC (4.8-10.8) X10*3/uL RBC (4.20-5.50) X10*6/uL Hgb (12.0-16.0) g/dl Hct (37.0-47.0) % MCV (80.0-98.0) fL MCH (27.0-33.0) pg MCHC (31.0-35.0) g/dl RDW (11.0-16.0) % Plt Count (160-400) X10*3/uL MPV (9.4-12.3) fL Immature Gran % (Auto) (0.0-0.4) % Neut % (Auto) (45-73) % Lymph % (Auto) (20-40) % [place] % (Auto) (2-11) % Eos % (Auto) (0-4) % Baso % (Auto) (0-2) % Lymph # (Auto) (1.2-4.9) X10*3/uL [place] # (Auto) (0.1-1.2) X10*3/uL Eos # (Auto) (0.0-0.4) X10*3/uL Baso # (Auto) (0.0-0.2) X10*3/uL Abs Immat Gran (auto) (0.00-0.03) X10*3/uL Absolute Neuts (auto) (2.0-8.3) x10*3/uL Absolute Nucleated RBC (0.0-0.012) X10*3/uL Nucleated RBC % (auto) (0.0-0.2) /100WBC PT 10.5 (9.9-13.0) SEC INR 0.9 (0.9-1.1) Sodium (135-145) mmol/L Potassium (3.3-5.1) mmol/L Chloride (96-108) mmol/L Carbon Dioxide (22-29) mmol/L Anion Gap (12-20) BUN (9-16) mg/dL Creatinine (0.5-1.4) mg/dL Estim Creat Clear Calc Estimated GFR Random Glucose (60-115) mg/dL Calcium (8.4-10.2) mg/dL Total Bilirubin (0.0-1.0) mg/dL AST (5-31) U/L ALT (0-31) U/L Alkaline Phosphatase (39-117) U/L Total Protein (6.5-8.0) g/dL Albumin (3.5-5.0) g/dL Stool Occult Blood (NEGATIVE) COVID-19 (YULISSA) (Negative) COVID-19 Clin Com Influenza Type A (EVIE) (Negative) Influenza Type B (EVIE) (Negative) Influenza A & B Note Blood Type O Positive Antibody Screen NEGATIVE Crossmatch See Detail ECG Data Attestation: I personally reviewed and interpreted this ECG as follows: ECG interpretation date: 02/14/22 ECG interpretation time: 04:07 Interpretation: Rate: 90 Rhythm: NSR [place]: normal Normal P waves. Normal ELIS. Normal QRS complex. ST T wave : no LEX, nonspecific qTC: prolonged prior studies: no acute ischemia The study has been interpreted contemporaneously by me. Critical Care Time Critical Care Time Critical Care Time: Yes Total Critical Care Time: 35 Attestation: review of records, transfusion of 2 UPRBCs, IV protonix drip I attest to this time spent taking care of the patient Discharge Plan Discharge Clinical Impression: Acute blood loss anemia, Chronic upper GI bleeding, Acute dyspnea Patient Disposition: Admitted As Inpatient
[2022-02-14 03:07] LABS: COVID-19 Test Negative (Negative); IDNOW Serial# 16C4AD1C; Influenza A Negative (Negative); Influenza B2 Negative (Negative)
[2022-02-14 03:20] LABS: Alanine Aminotransferase 8 U/L (0-31); Albumin Level 3.5 g/dL (3.5-5.0); Alkaline Phosphatase 71 U/L (39-117); Anion Gap 10 (12-20); Aspartate Amino Transferase 10 U/L (5-31); Bilirubin Total 0.3 mg/dL (0.0-1.0); Blood Urea Nitrogen 17 mg/dL (9-16); Calcium 8.6 mg/dL (8.4-10.2); Carbon Dioxide 23 mmol/L (22-29); Chloride 109 mmol/L (96-108); Estimated Glomerular Filt Rate > 60; Glucose Random 127 mg/dL (60-115); Potassium 3.2 mmol/L (3.3-5.1); Sodium 139 mmol/L (135-145); Total Protein 5.8 g/dL (6.5-8.0)
[2022-02-14] MEDS: Albuterol Sulfate (0.083%) 2.5 MG/3 ML VIAL.NEB INHALE (03:30)
[2022-02-14 04:03] LABS: OBS Int Ctl Valid YES; OBS1 POSITIVE (NEGATIVE)
[2022-02-14] MEDS: Pantoprazole Sodium 40 MG/10 ML VIAL IVPUSH (04:20)
[2022-02-14] MEDS: Pantoprazole Sodium 80 MG in 0.9 % Sodium Chloride 80 ML 10 MG IV (04:21)
[2022-02-14 04:32] LABS: INTERNATIONAL NORM RATIO 0.9 (0.9-1.1); Prothrombin Time 10.5 SEC (9.9-13.0)
--- NOTE | 2022-02-14 07:08 | PC.NURSE ---
report taken from bob ray pt here for dizziness and weakness, had low h+h, being transfused at this time. offers no complaints at this time, lying comfortably in stretcher, rr even/unlabored. vss. wctm.
--- NOTE | 2022-02-14 09:43 | PHA.MEDREC ---
Pharmacy Consult ? Medication Reconciliation Pharmacy has completed the medication reconciliation. Pt stated that she takes most of her maintenance medications at night except for sertraline, also stated that she thinks they told her to stop taking baby aspirin but she still does.
== END 2022-02-14 11:44 | disposition home or self-care (01) ==
PROVIDERS: Emergency Provider Emergency Medicine; PCP Internal Medicine
DX: S40.811A Abrasion of right upper arm, initial encounter (principal); D62 Acute posthemorrhagic anemia; K92.2 Gastrointestinal hemorrhage, unspecified; R06.02 Shortness of breath; R42 Dizziness and giddiness; R06.00 Dyspnea, unspecified; W01.0XXA Fall on same level from slipping, tripping and stumbling without subsequent striking against object, initial encounter; Y93.9 Activity, unspecified; Y92.9 Unspecified place or not applicable; Y99.9 Unspecified external cause status; F17.210 Nicotine dependence, cigarettes, uncomplicated; Z20.822 Contact with and (suspected) exposure to COVID-19; Z71.6 Tobacco abuse counseling; Z79.899 Other long term (current) drug therapy
CPT/HCPCS: 36415; 36430; 70450; 80053; 82272; 85025; 85610; 86850; 86900; 86901; 86923; 87502; 87635; 93005; 94640; 96365; 96366; 96375; 99284; 99285; P9016; P9040

== ENCOUNTER 2022-04-26 08:16 | Outpatient (REF) | payer MEDICAID, SELFPAY ==
--- NOTE | ~2022-04-26 | CT_ITS ---
EXAMINATION: CT ABDOMEN AND PELVIS WITHOUT CONTRAST CLINICAL INFORMATION: Melena. Disease of digestive system. COMPARISON: CT abdomen and pelvis 09/23/2021. TECHNIQUE: Multidetector volumetric imaging was performed from the superior aspect of the liver through the pubic symphysis. Sagittal and coronal reformatted images were obtained on the technologist's workstation. This CT examination was performed using dose optimization techniques as appropriate, variously including the following: *Automated exposure control *Adjustment of mA and/or kV according to patient size (this includes techniques or standardized protocols for targeted exams where dose is matched to indication/reason for exam; i.e. extremities or head) *Use of iterative reconstruction technique DLP: 682 mGy-cm FINDINGS: LUNG BASES: Minimal atelectatic changes or scarring seen in the right lung base. The heart size is normal. LIVER, GALLBLADDER, AND BILIARY TREE: The liver is enlarged in size, normal shape, and attenuation. No focal hepatic lesion or biliary ductal dilatation is present. The gallbladder is unremarkable with no evidence of radiopaque gallstones, gallbladder wall thickening, or obvious pericholecystic inflammatory changes. PANCREAS: Unremarkable. SPLEEN: Unremarkable. ADRENAL GLANDS: The left adrenal gland is enlarged with a punctate calcification. The entire left adrenal gland measures 2.7 x 1.7 cm. A 9 mm hypodensity seen in right adrenal gland. Both of these lesions are negative Hounsfield units.. KIDNEYS AND URETERS: The kidneys are normal in size, shape, and attenuation. No hydronephrosis, hydroureter, or calculi seen. No perinephric stranding. BLADDER: The bladder is distended. GASTROINTESTINAL TRACT: There is moderate stool, gas, diverticula and oral contrast seen throughout the colon without distention. There is mild mural thickening stomach, duodenum and the proximal jejunum likely enteritis. Rest of the small bowel loops are normal. The appendix is normal caliber. No free fluid. No peritoneal fat stranding seen. ABDOMINAL WALL: No significant hernia is appreciated. LYMPH NODES: No abnormal size retroperitoneal or mesenteric lymph nodes seen. VASCULAR: Unremarkable. PELVIC VISCERA: Again visualized is a lobulated mass in AP direction measuring 14 cm cephalad to the bladder. The masses that appears to be medicated with the cervix. Likely ovarian origin exophytic fibroid.. OSSEOUS STRUCTURES: There are degenerative disc changes and vacuum disc phenomena at all lower thoracic and lumbar spine sparing the L5-S1 disc levels. Grade 1 anterolisthesis L4 over L5 is noted. CT/CT abdomen pelvis wo con IMPRESSION: Diffuse mural thickening involving the stomach, duodenum and the proximal jejunum suggestive of small bowel enteritis or gastroenteritis. No peritoneal fat stranding or free fluid seen. No abnormal lymph nodes. These are new findings compared to 09/23/2021. Mild colonic diverticulosis without diverticulitis. Large pelvic mass similar previous study may be a slightly larger but the differential diagnosis of the adnexal mass or a large exophytic uterine fibroid. Bilateral adrenal lipid rich adenomas. Fleischner guidelines were followed.
[2022-04-26] MEDS: Barium Sulfate Oral (Vanilla) 450 ML ORAL.SUSP 900 ML PO (11:00)
== END 2022-04-26 08:17 | disposition home or self-care (01) ==
LOC: HO.CT 08:16
PROVIDERS: Visit Provider Physician Assistant
DX: K92.1 Melena (principal)
CPT/HCPCS: 74176

== ENCOUNTER 2022-07-02 14:44 | Observation (INO) | payer MEDICAID, SELFPAY ==
--- NOTE | 2022-07-02 | ECG_ITS ---
Test Reason : SOB Blood Pressure : / mmHG Vent. Rate : 097 BPM Atrial Rate : 097 BPM P-R Int : 142 ms QRS Dur : 084 ms QT Int : 374 ms P-R-T Axes : 061 013 050 degrees QTc Int : 474 ms Normal sinus rhythm Intra-ventricular conduction delay Otherwise normal ECG When compared with ECG of 14-FEB-2022 03:51, No significant change was found Referred By: Generic ED Physician Electronically Signed By:JOSELINE BASS MD
--- NOTE | ~2022-07-02 | XR_ITS ---
EXAMINATION: XR CHEST CLINICAL INFORMATION: Shortness of breath COMPARISON: Previous chest x-ray September 2021 TECHNIQUE: Frontal view of the chest was obtained. FINDINGS: The cardiac and mediastinal contours are stable. There may be atelectasis or small infiltrate at the left lung base. The lungs are otherwise clear. There is no pleural effusion or pneumothorax. There are degenerative changes of the spine. XR/XR chest 1V IMPRESSION: Question atelectasis or small infiltrate at the left lung base.
[2022-07-02 15:01] VITALS: BP 118/80; PULSE 107; RESP 16; TEMP 36.3; O2SAT 96; BMI 29.6
[2022-07-02 15:29] LABS: MANUAL DIFF FLAG NO
[2022-07-02 15:32] LABS: Basophils Percent Auto 0.4 % (0-2); Eosinophils Absolute Auto 0.1 X10*3/uL (0.0-0.4); Eosinophils Percent Auto 1.7 % (0-4); Hematocrit 39.3 % (37.0-47.0); Hemoglobin 12.1 g/dl (12.0-16.0); Imm Gran Abs Auto 0.05 X10*3/uL (0.00-0.03); Imm Gran Pct Auto 0.7 % (0.0-0.4); Lymphocytes Absolute Auto 2.2 X10*3/uL (1.2-4.9); Lymphocytes Percent Auto 31.5 % (20-40); Mean Corpuscular HGB Conc 30.8 g/dl (31.0-35.0); Mean Corpuscular Hemoglobin 20.3 pg (27.0-33.0); Mean Corpuscular Volume 66.1 fL (80.0-98.0); Mean Platelet Volume 9.2 fL (9.4-12.3); Monocytes Absolute Auto 0.6 X10*3/uL (0.1-1.2); Monocytes Percent Auto 7.9 % (2-11); Neutrophils Percent Auto 57.8 % (45-73); Platelet Count 323 X10*3/uL (160-400); Red Blood Count 5.95 X10*6/uL (4.20-5.50); Red Cell Distribution Width 14.8 % (11.0-16.0)
[2022-07-02 15:53] LABS: Anion Gap 15 (12-20); Blood Urea Nitrogen 10 mg/dL (9-16); Calcium 9.1 mg/dL (8.4-10.2); Carbon Dioxide 26 mmol/L (22-29); Chloride 105 mmol/L (96-108); Creatinine Clr Calc Pharmacy 77.9; Estimated Glomerular Filt Rate > 60; Glucose Random 90 mg/dL (60-115); Potassium 4.7 mmol/L (3.3-5.1); Sodium 141 mmol/L (135-145)
[2022-07-02 16:01] LABS: Troponin-I High Sensitivity < 3.5 ng/L (<3.5-17.0)
[2022-07-02 17:29] VITALS: O2SAT 97
[2022-07-02 20:31] VITALS: PULSE 93; O2SAT 92
--- NOTE | 2022-07-02 20:36 | ED.URI ---
HPI - URI/Sore Throat General Chief Complaint: Upper Respiratory Symptoms Stated Complaint: congestion diff breathing cough Time Seen by Provider: 07/02/22 20:32 Source: patient Mode of arrival: ambulatory Limitations: no limitations History of Present Illness HPI Narrative: 61-year-old female history of COPD, anemia presenting to the emergency department complaints of shortness of breath, fatigue, malaise, dry cough times a week and half. Patient tells me that she was COVID positive week ago, she quarantine and since then her breathing has been getting worse. She reports she is having a hard time speaking in full sentences she has been feeling very short of breath, she reports that when she coughs she feels like she has something to cough up however there is no sputum production. She tells me she feels congested, reports because of this she is having a headache diffuse in nature, feels like her typical, without vision changes or dizziness.. At this time she denies fevers, chills, chest pain, nausea, vomiting, abdominal pain. Related Data Home Medications Medication Instructions Recorded Confirmed benztropine 0.5 mg tablet 1 mg PO BEDTIME 09/01/21 02/14/22 duloxetine 60 mg capsule,delayed 60 mg PO BID 09/01/21 02/14/22 release sprinkle lamotrigine 200 mg tablet 200 mg PO BEDTIME 09/01/21 02/14/22 trazodone 100 mg tablet 100 mg PO BEDTIME 09/01/21 02/14/22 benztropine 0.5 mg tablet 0.5 mg PO DAILY 09/23/21 02/14/22 aspirin 81 mg tablet,delayed 81 mg PO DAILY 02/14/22 02/14/22 release cyanocobalamin (vitamin B-12) 1,000 mcg PO BEDTIME 02/14/22 02/14/22 1,000 mcg tablet,extended release (Vitamin B-12 ER) ferrous sulfate 325 mg (65 mg 325 mg PO BEDTIME 02/14/22 02/14/22 iron) tablet ibuprofen 800 mg tablet 1 tab PO TID PRN Pain 02/14/22 02/14/22 quetiapine 25 mg tablet 1 tab PO BEDTIME 02/14/22 02/14/22 risperidone 3 mg tablet 1 tab PO BEDTIME 02/14/22 02/14/22 sertraline 25 mg tablet 1 tab PO DAILY 02/14/22 02/14/22 Previous Rx's Medication Instructions Recorded albuterol sulfate 90 mcg/actuation 1 inh inhalation QID PRN shortness 09/01/21 aerosol inhaler of breath or wheezing #6.7 grams omeprazole 40 mg capsule,delayed 40 mg PO BID 8 weeks #112 caps 09/26/21 release lorazepam 0.5 mg tablet 0.5 mg PO BID PRN anxiety #10 tabs 09/30/21 albuterol sulfate 90 mcg/actuation 2 puff inhalation Q4-6H PRN 02/14/22 aerosol inhaler (ProAir HFA) shortness of breath or wheezing #8.5 grams ferrous sulfate 325 mg (65 mg 325 mg PO TID 30 days #90 tabs 02/14/22 iron) tablet omeprazole 20 mg capsule,delayed 20 mg PO DAILY 30 days #30 caps 02/14/22 release Allergies Allergy/AdvReac Type Severity Reaction Status Date / Time No Known Allergies Allergy Verified 09/23/21 13:19 Review of Systems Review of Systems: Constitutional : No Weight loss, No Fever, No Chills, + Fatigue, + Malaise ENT/Mouth : No sore throat, No Rhinorrhea Eyes: No Eye Pain, No Swelling, No Redness Cardiovascular : No Chest Pain, + SOB, + Dyspnea on Exertion, No Orthopnea, No Edema, No Palpitations Respiratory : No Cough, No Sputum, + Wheezing Gastrointestinal : No Nausea, No Vomiting, No Diarrhea, No Constipation, No abdominal Pain, No Hematochezia, No Melena Genitourinary : No Dysuria, No Urinary Frequency, No Hematuria, Musculoskeletal : No joint pain, No Myalgias, No Joint Swelling Skin : No Skin Lesions, No rash Neuro : No Weakness, No Numbness, No Dizziness, + Headache Psych : No Anxiety/Panic, No Depression All other systems reviewed and are negative Yes all other systems are reviewed and are negative [facility] Past Medical History Attestation statement: The following information was validated with the patient. Source: old records reviewed and nursing notes reviewed Medical History Anemia COPD (chronic obstructive pulmonary disease) Hx of head injury Panic anxiety syndrome Pelvic mass Surgical History H/O: hysterectomy History of mandibular surgery Hx of colonoscopy Social History Social History Household Members: Spouse Housing: House Do you presently have visiting nurse or other home services: Yes Alcohol intake: unknown Patient Tobacco Use Status: Current everyday Tobacco user Tobacco use type: Cigarette Cigarette Packs Per Day: 1 Cigarettes Per Day: 20.0 Second Hand Smoke Exposure: No Substance Use Type: Marijuana Advance Directives: No Current occupational status: employed Physical Exam Vital Signs: Vital Signs: Last Vital Signs Temp 97.3 F 07/02/22 15:01 Pulse 98 07/02/22 21:10 Resp 18 07/02/22 21:10 BP 118/80 07/02/22 15:01 Pulse Ox 92 07/02/22 20:31 O2 Del Method 07/02/22 20:31 BMI result Body Mass Index 29.6 vss Appearance: Alert.? Oriented X3.? No acute distress.? Increased work of breathing, intercostal muscles use for breathing tracheal tugging noted. Head: Normocephalic, atraumatic, no step-offs or deformities Eyes: Pupils equal, round and reactive to light.? ENT: Pharynx normal.? Neck: Normal inspection.? Neck supple.? CVS: Normal heart rate and rhythm.? Pulses normal.? Respiratory: No respiratory distress.? Breath sounds diminished bilaterally with wheezing and crackles noted to the left lower lobe. Abdomen: Soft and nontender.? Skin: Skin warm and dry.? Normal skin color.? Normal skin turgor.? Extremities: No lower extremity edema.? No calf ttp, negative leesa. 5/5 strength to bilateral upper and lower extremities Neuro: Oriented X 3.? No motor deficit.? No sensory deficit. CN 2-12 intact . Normal [id number], [id number], steady tandem gait with normal coordination. Course Reevaluation(s) Reevaluation #1: Chest x-ray of concerns for small infiltrate to the left lung base consistent with physical examination with crackles. Concerns for pneumonia. Time: 20:40 Reevaluation #2: CBC appears to be at baseline. Chemistry without electrolyte abnormalities requiring intervention. Troponin negative, EKG nonischemic unlikely ACS. Blood cultures, lactic acid, flu/COVID/RSV and D-dimer pending at this time. Time: 20:42 Reevaluation #3: Lactic acid negative. D-dimer pending. Additional DuoNeb will be ordered at this Time: 21:44 Additional Reevaluation(s): Dimer negative. Discussed case w/ hospitalist who will admit patient. Aysha REI. MDM - URI/Sore Throat MDM Narrative Medical decision making narrative: 2037 61-year-old female presents with fatigue, malaise, productive cough, patient reports that she was recently COVID positive. Now experiencing shortness of breath and dyspnea on exertion. Physical examination with wheezing throughout and diminished breath sounds bilaterally. Crackles noted to left lower lobe. Regular rate and rhythm. Abdomen soft nontender nondistended, neuro nonfocal. Patient is noted to be 92% on room air, not oxygen dependent. Patient noted to have intercostal retractions, tracheal tugging and increased work of breathing. Concerns for pneumonia. Will rule out PE, ACS. Will obtain basic labs, blood cultures, lactic acid, chest x-ray, D-dimer, EKG. Will give patient a DuoNeb. Likely typical headache, low suspicion for ICH, posterior stroke. Immediately upon arrival patient was ambulated within O2 monitor, saturating 90% and patient extremely short of breath. Sat patient back down Medical Records Attestation: I reviewed the patient's medical records. Lab Data Attestation: I reviewed the patient's lab results. Result diagrams: 07/02/22 15:18 07/02/22 15:18 Labs: Lab Results 07/02/22 07/02/22 07/02/22 Range/Units 15:18 15:18 15:18 WBC 7.0 (4.8-10.8) X10*3/uL RBC 5.95 H D (4.20-5.50) X10*6/uL Hgb 12.1 D (12.0-16.0) g/dl Hct 39.3 D (37.0-47.0) % MCV 66.1 L (80.0-98.0) fL MCH 20.3 L (27.0-33.0) pg MCHC 30.8 L (31.0-35.0) g/dl RDW 14.8 (11.0-16.0) % Plt Count 323 (160-400) X10*3/uL MPV 9.2 L (9.4-12.3) fL Immature Gran % (Auto) 0.7 H (0.0-0.4) % Neut % (Auto) 57.8 (45-73) % Lymph % (Auto) 31.5 (20-40) % [place] % (Auto) 7.9 (2-11) % Eos % (Auto) 1.7 (0-4) % Baso % (Auto) 0.4 (0-2) % Lymph # (Auto) 2.2 (1.2-4.9) X10*3/uL [place] # (Auto) 0.6 (0.1-1.2) X10*3/uL Eos # (Auto) 0.1 (0.0-0.4) X10*3/uL Baso # (Auto) 0.0 (0.0-0.2) X10*3/uL Abs Immat Gran (auto) 0.05 H (0.00-0.03) X10*3/uL Absolute Neuts (auto) 4.0 (2.0-8.3) x10*3/uL Absolute Nucleated RBC 0.000 (0.0-0.012) X10*3/uL Nucleated RBC % (auto) 0.0 (0.0-0.2) /100WBC D-Dimer High Sensitivty NG/ML Sodium 141 (135-145) mmol/L Potassium 4.7 D (3.3-5.1) mmol/L Chloride 105 (96-108) mmol/L Carbon Dioxide 26 (22-29) mmol/L Anion Gap 15 (12-20) BUN 10 (9-16) mg/dL Creatinine 0.72 (0.5-1.4) mg/dL Estim Creat Clear Calc 77.9 Estimated GFR > 60 Random Glucose 90 (60-115) mg/dL Lactic Acid (0.5-2.0) mmol/L Calcium 9.1 (8.4-10.2) mg/dL Troponin I High Sens < 3.5 (<3.5-17.0) ng/L 07/02/22 07/02/22 Range/Units 21:17 21:17 WBC (4.8-10.8) X10*3/uL RBC (4.20-5.50) X10*6/uL Hgb (12.0-16.0) g/dl Hct (37.0-47.0) % MCV (80.0-98.0) fL MCH (27.0-33.0) pg MCHC (31.0-35.0) g/dl RDW (11.0-16.0) % Plt Count (160-400) X10*3/uL MPV (9.4-12.3) fL Immature Gran % (Auto) (0.0-0.4) % Neut % (Auto) (45-73) % Lymph % (Auto) (20-40) % [place] % (Auto) (2-11) % Eos % (Auto) (0-4) % Baso % (Auto) (0-2) % Lymph # (Auto) (1.2-4.9) X10*3/uL [place] # (Auto) (0.1-1.2) X10*3/uL Eos # (Auto) (0.0-0.4) X10*3/uL Baso # (Auto) (0.0-0.2) X10*3/uL Abs Immat Gran (auto) (0.00-0.03) X10*3/uL Absolute Neuts (auto) (2.0-8.3) x10*3/uL Absolute Nucleated RBC (0.0-0.012) X10*3/uL Nucleated RBC % (auto) (0.0-0.2) /100WBC D-Dimer High Sensitivty 194 NG/ML Sodium (135-145) mmol/L Potassium (3.3-5.1) mmol/L Chloride (96-108) mmol/L Carbon Dioxide (22-29) mmol/L Anion Gap (12-20) BUN (9-16) mg/dL Creatinine (0.5-1.4) mg/dL Estim Creat Clear Calc Estimated GFR Random Glucose (60-115) mg/dL Lactic Acid 0.8 (0.5-2.0) mmol/L Calcium (8.4-10.2) mg/dL Troponin I High Sens (<3.5-17.0) ng/L ECG Data Attestation: I personally reviewed and interpreted this ECG as follows: ECG interpretation date: 07/02/22 ECG interpretation time: 20:41 Prior ECG tracings: available for review Interpretation: Ventricular rate of 97, OH normal, QRS normal, QT/QTC normal. EKG with normal sinus rhythm no ST elevations or inversions concerning for ischemia. No significant changes when compared to previous. Critical Care Time Critical Care Time Critical Care Time: No Discharge Plan Discharge Clinical Impression: Cough, Pneumonia Patient Disposition: Admitted As Inpatient Instructions: Pneumonia (ED), Acute Cough (ED) Prescriptions: No Action benztropine 0.5 mg Tablet 0.5 mg PO DAILY omeprazole 40 mg capsule,delayed release(DR/EC) 40 mg PO BID 56 Days Qty: 112 1RF Rx Instructions: After 8 weeks to take it daily lorazepam 0.5 mg tablet 0.5 mg PO BID PRN (Reason: anxiety) Qty: 10 0RF benztropine 0.5 mg Tablet 1 mg PO BEDTIME lamotrigine 200 mg Tablet 200 mg PO BEDTIME duloxetine 60 mg Capsule, Delayed Rel Sprinkle 60 mg PO BID trazodone 100 mg Tablet 100 mg PO BEDTIME albuterol sulfate 90 mcg/actuation HFA aerosol inhaler 1 inh inhalation QID PRN (Reason: shortness of breath or wheezing) Qty: 6.7 0RF quetiapine 25 mg tablet 1 tab PO BEDTIME ibuprofen 800 mg tablet 1 tab PO TID PRN (Reason: Pain) risperidone 3 mg tablet 1 tab PO BEDTIME sertraline 25 mg tablet 1 tab PO DAILY aspirin 81 mg Tablet,Delayed Release (Dr/Ec) 81 mg PO DAILY cyanocobalamin (vitamin B-12) [Vitamin B-12] 1,000 mcg tablet extended release 1,000 mcg PO BEDTIME ferrous sulfate 325 mg (65 mg iron) tablet 325 mg PO BEDTIME omeprazole 20 mg capsule,delayed release(DR/EC) 20 mg PO DAILY 30 Days Qty: 30 0RF albuterol sulfate [ProAir HFA] 90 mcg/actuation HFA aerosol inhaler 2 puff inhalation Q4-6H PRN (Reason: shortness of breath or wheezing) Qty: 8.5 0RF ferrous sulfate 325 mg (65 mg iron) tablet 325 mg PO TID 30 Days Qty: 90 0RF Referrals: Daljit Irby MD [Primary Care Provider] - 2 days
[2022-07-02 21:10] VITALS: PULSE 98; RESP 18; O2SAT 94
[2022-07-02] MEDS: Albuterol/Iprat 2.5/0.5MG 3 ML AMPUL.NEB INHALE ×2 (21:10→21:49)
[2022-07-02] MEDS: methylPREDNISolone Sod Succ 125 MG/2 ML VIAL IVPUSH (21:36)
[2022-07-02 21:39] LABS: Lactic Acid 0.8 mmol/L (0.5-2.0)
[2022-07-02] MEDS: cefTRIAXone sodium 1 GM in 0.9 % Sodium Chloride 50 ML IV (21:40)
[2022-07-02 22:01] LABS: D Dimer High Sensitivity 194 NG/ML
--- NOTE | 2022-07-02 22:19 | PM.IMHP ---
History of Present Illness Date of Service: 07/02/22 Chief Complaint: shortness of breath This is a 61-year-old female with a pertinent history of tobacco use disorder, history of COPD, anemia, mood disorder who presents to the emergency department for evaluation of shortness of breath. Patient states she tested positive for COVID-19 on 06/25/2022. Patient initially had fevers which resolved. Subsequently patient developed upper respiratory tract symptoms. Over the last 1-2 days patient started having shortness of breath and wheezing, persistent, worse on ambulation. No more fevers and occasional intermittent dry cough. Patient states he continues to smoke about 15 cigarettes per day. Denies chest discomfort, lower extremity swelling, orthopnea, PND. No abdominal pain or changes in urinary or bowel habits. In the emergency department, patient was found to be wheezing and in mild respiratory distress. Review of Systems Review of Systems: All 13 review of systems are negative except as noted in HPI COUNT INCLUDES [facility] Medical History Anemia COPD (chronic obstructive pulmonary disease) Hx of head injury Panic anxiety syndrome Pelvic mass Functional capacity: independent ambulation Surgical History H/O: hysterectomy History of mandibular surgery Hx of colonoscopy Social History Household Members: Spouse Housing: House Do you presently have visiting nurse or other home services: Yes Alcohol intake: unknown Patient Tobacco Use Status: Current everyday Tobacco user Tobacco use type: Cigarette Cigarette Packs Per Day: 1 Cigarettes Per Day: 20.0 Second Hand Smoke Exposure: No Substance Use Type: Marijuana Advance Directives: No Current occupational status: employed Meds Allergies Allergy/AdvReac Type Severity Reaction Status Date / Time No Known Allergies Allergy Verified 09/23/21 13:19 Active Medications: Current Medications Acetaminophen (Acetaminophen 325 Mg Tablet) 650 mg PO Q6H PRN PRN Reason: Pain, Mild (Pain Scale 1-3) Albuterol/Ipratropium (Albuterol/Iprat 2.5/0.5mg 3 Ml Ampul.Neb) 3 ml INHALE Q4H JAHAIRA Albuterol/Ipratropium (Albuterol/Iprat 2.5/0.5mg 3 Ml Ampul.Neb) 3 ml INHALE Q4H PRN PRN Reason: Wheezing Enoxaparin Sodium (Enoxaparin Sodium 40 Mg/0.4 Ml Syringe) 40 mg SUBCUT Q24H JAHAIRA Magnesium Sulfate (Magnesium Sulfate/H2o) 2 gm in 50 mls @ 25 mls/hr IV ONCE ONE Stop: 07/02/22 22:46 Ondansetron HCl (Ondansetron Hcl 4 Mg/2 Ml Vial) 4 mg IVPUSH Q8H PRN PRN Reason: Nausea and Vomiting Pharmacy Consult (Consult Rx Perform Med Rec) 1 each MISCELLANE ONCE STA Stop: 07/02/22 22:01 Prednisone (Prednisone 20 Mg Tablet) 40 mg PO DAILY [facility] Sodium Chloride (0.9 % Sodium Chloride Flush 3 Ml Syringe) 3 ml IVFLUSH QSHIFT [facility] Home Medications Medication Instructions Recorded Confirmed Last Taken Type benztropine 0.5 mg tablet 1 mg PO BEDTIME 09/01/21 02/14/22 02/13/22 History duloxetine 60 mg capsule,delayed 60 mg PO BID 09/01/21 02/14/22 02/13/22 History release sprinkle lamotrigine 200 mg tablet 200 mg PO BEDTIME 09/01/21 02/14/22 02/13/22 History trazodone 100 mg tablet 100 mg PO BEDTIME 09/01/21 02/14/22 02/13/22 History benztropine 0.5 mg tablet 0.5 mg PO DAILY 09/23/21 02/14/22 02/13/22 History aspirin 81 mg tablet,delayed 81 mg PO DAILY 02/14/22 02/14/22 02/13/22 History release cyanocobalamin (vitamin B-12) 1,000 mcg PO BEDTIME 02/14/22 02/14/22 02/13/22 History 1,000 mcg tablet,extended release (Vitamin B-12 ER) ferrous sulfate 325 mg (65 mg 325 mg PO BEDTIME 02/14/22 02/14/22 02/13/22 History iron) tablet ibuprofen 800 mg tablet 1 tab PO TID PRN Pain 02/14/22 02/14/22 Unknown History quetiapine 25 mg tablet 1 tab PO BEDTIME 02/14/22 02/14/22 02/13/22 History risperidone 3 mg tablet 1 tab PO BEDTIME 02/14/22 02/14/22 02/13/22 History sertraline 25 mg tablet 1 tab PO DAILY 02/14/22 02/14/22 02/14/22 History Physical Exam Vital Signs and Narrative: Vital Signs: Last Vital Signs Temp 97.3 F 07/02/22 15:01 Pulse 98 07/02/22 21:10 Resp 18 07/02/22 21:10 BP 118/80 07/02/22 15:01 Pulse Ox 92 07/02/22 20:31 O2 Del Method 07/02/22 20:31 BMI result Body Mass Index 29.6 Middle-aged female lying in bed in mild distress Neck supple, no JVD Regular rate and rhythm, S1-S2 heard Tachypnea with significant bilateral expiratory wheezes Abdomen soft nontender, no guarding, no rigidity Patient is awake, alert and oriented to self, place, time and person ; no focal motor deficit Psych: Normal mood No pedal edema Results Labs CBC and Chem 7: 07/02/22 15:18 07/02/22 15:18 Labs: Laboratory Results - last 24 hr 07/02/22 07/02/22 07/02/22 15:18 15:18 15:18 MCV 66.1 L MCH 20.3 L MCHC 30.8 L RDW 14.8 Plt Count 323 MPV 9.2 L Immature Gran % (Auto) 0.7 H Neut % (Auto) 57.8 Lymph % (Auto) 31.5 [place] % (Auto) 7.9 Eos % (Auto) 1.7 Baso % (Auto) 0.4 Lymph # (Auto) 2.2 [place] # (Auto) 0.6 Eos # (Auto) 0.1 Baso # (Auto) 0.0 Abs Immat Gran (auto) 0.05 H Absolute Neuts (auto) 4.0 Absolute Nucleated RBC 0.000 Nucleated RBC % (auto) 0.0 D-Dimer High Sensitivty Anion Gap 15 Estim Creat Clear Calc 77.9 Estimated GFR > 60 Random Glucose 90 Lactic Acid Calcium 9.1 Troponin I High Sens < 3.5 07/02/22 07/02/22 21:17 21:17 MCV MCH MCHC RDW Plt Count MPV Immature Gran % (Auto) Neut % (Auto) Lymph % (Auto) [place] % (Auto) Eos % (Auto) Baso % (Auto) Lymph # (Auto) [place] # (Auto) Eos # (Auto) Baso # (Auto) Abs Immat Gran (auto) Absolute Neuts (auto) Absolute Nucleated RBC Nucleated RBC % (auto) D-Dimer High Sensitivty 194 Anion Gap Estim Creat Clear Calc Estimated GFR Random Glucose Lactic Acid 0.8 Calcium Troponin I High Sens Imaging Radiologist's Impressions: Impressions Chest X-Ray 07/02/22 15:29 IMPRESSION: Question atelectasis or small infiltrate at the left lung base. Assessment and Plan (1) Acute respiratory distress: Status: Acute (2) COPD exacerbation: Status: Acute (3) Tobacco use disorder: Status: Acute (4) Mood disorder: Status: Acute (5) Anemia: Status: Acute Plan This is a 61-year-old female with a pertinent history of tobacco use disorder, history of COPD, anemia, mood disorder who presents to the emergency department for evaluation of shortness of breath and wheezing. #. Acute respiratory distress due to #. Exacerbation of chronic obstructive pulmonary disease -will admit patient for observation. Exacerbation of COPD likely due to viral infection (recent COVID-19 infection). Initiating DuoNebs every 4 hours scheduled and p.r.n.. Patient received IV steroids in the ER. Continue oral prednisone 40 mg x 5. Also initiating azithromycin for pleiotropic effect. Patient without fever, leukocytosis and productive cough and hence less likely has bacterial pneumonia. Currently maintaining normal oxygen saturation on room air. Monitor and maintain oxygen saturation greater than 90%. #. Mood disorder -continue home medications #. Tobacco use disorder -nicotine patch #. Microcytic anemia -obtaining iron studies DVT prophylaxis: Lovenox 40 mg daily Diet: Regular diet Full code Quality Stroke Does the patient have a stroke diagnosis?: No VTE Prior VTE?: No VTE Risk Level:: Medical - moderate - high VTE Device Contraindication: Treatment Not Indicated VTE Drug Contraindication: N/A - Med Ordered
[2022-07-02] MEDS: Magnesium Sulfate/H2O 2 GM/50 ML PIGGYBACK IV (22:28)
[2022-07-02] MEDS: Enoxaparin Sodium 40 MG/0.4 ML SYRINGE SUBCUT (22:50)
[2022-07-03] VITALS: BP 143/82; PULSE 100; RESP 20; TEMP 36.6; O2SAT 91
[2022-07-03 00:29] LABS: Iron 68 mcg/dL (30-160); Percent Iron Saturation 21 % (15-50); Total Iron Binding Capacity 318 mcg/dL (228-428); Unsaturated Iron Binding 250 ug/dL
--- NOTE | 2022-07-03 00:30 | PC.NURSE ---
resting quietly,denies pain.lungs dim with exp wheezes bilat.occ carmen non prod cough.91% on room air.amb to br.
[2022-07-03] MEDS: 0.9 % Sodium Chloride Flush 3 ML SYRINGE IVFLUSH (00:38)
[2022-07-03 01:03] LABS: Influenza A PCR NEGATIVE (Negative); Influenza B PCR NEGATIVE (Negative); Resp Syncy Virus RNA Qual PCR NEGATIVE (Negative); SARS COV2 PCR INHOUSE POSITIVE (Negative)
--- NOTE | 2022-07-03 02:50 | PC.NURSE ---
pt states she feels anxious and wants to go home.requesting something to help her sleep.dr dumas notified.order for ativan 1 mg po x 1 given.pt updated and med given.
[2022-07-03] MEDS: LORazepam 1 MG TABLET PO (02:52)
[2022-07-03 07:11] LABS: Basophils Percent Auto 0.2 % (0-2); Hematocrit 40.6 % (37.0-47.0); Hemoglobin 12.9 g/dl (12.0-16.0); Imm Gran Abs Auto 0.08 X10*3/uL (0.00-0.03); Imm Gran Pct Auto 0.7 % (0.0-0.4); Lymphocytes Absolute Auto 0.8 X10*3/uL (1.2-4.9); Lymphocytes Percent Auto 6.9 % (20-40); MANUAL DIFF FLAG SCAN; Mean Corpuscular HGB Conc 31.8 g/dl (31.0-35.0); Mean Corpuscular Hemoglobin 20.6 pg (27.0-33.0); Mean Platelet Volume 9.4 fL (9.4-12.3); Monocytes Absolute Auto 0.3 X10*3/uL (0.1-1.2); Monocytes Percent Auto 2.1 % (2-11); Neutrophils Percent Auto 90.1 % (45-73); Platelet Count 365 X10*3/uL (160-400); Red Blood Count 6.25 X10*6/uL (4.20-5.50); Red Cell Distribution Width 15.2 % (11.0-16.0); SCAN SMEAR FLAG 1; White Blood Count 12.2 X10*3/uL (4.8-10.8)
[2022-07-03] MEDS: Albuterol/Iprat 2.5/0.5MG 3 ML AMPUL.NEB INHALE (07:37)
[2022-07-03 07:40] VITALS: PULSE 108; RESP 18; O2SAT 95
[2022-07-03 07:45] VITALS: BP 150/90; PULSE 89; RESP 17; TEMP 36.6; O2SAT 92
[2022-07-03] MEDS: Acetaminophen 325 MG TABLET 650 MG PO (07:52)
[2022-07-03] MEDS: predniSONE 20 MG TABLET 40 MG PO (07:52)
--- NOTE | 2022-07-03 07:55 | PC.NURSE ---
0755-pt assessed, lung sounds expiratory wheezing noted A&P throughout. pt anxious and wanting to leave. Hospitalist called and updated to pt request to leave. stated, he would arrive shortly to see her. Rt giving neb treatment. pt received po tylenol for frontal headache, rating 7/10, aching and sharp.
[2022-07-03 08:25] LABS: SLIDE REVIEW VERIFIED
--- NOTE | 2022-07-03 08:27 | PM.DS ---
DS: Providers Provider Date of Service: 07/03/22 Date of admission: 07/02/22 22:13 Primary care physician: Daljit Irby MD DS: Diagnosis Discharge Diagnosis (1) Acute respiratory distress: Status: Acute (2) COPD exacerbation: Status: Acute (3) Tobacco use disorder: Status: Acute (4) Pneumonia: Status: Acute DS: Summary Hospital Course Hospital Course: Admission note HPI This is a 61-year-old female with a pertinent history of tobacco use disorder, history of COPD, anemia, mood disorder who presents to the emergency department for evaluation of shortness of breath.? Patient states she tested positive for COVID-19 on 06/25/2022.? Patient initially had fevers which resolved.? Subsequently patient developed upper respiratory tract symptoms.? Over the last 1-2 days patient started having shortness of breath and wheezing, persistent, worse on ambulation.? No more fevers and occasional intermittent dry cough.? Patient states he continues to smoke about 15 cigarettes per day.? Denies chest discomfort, lower extremity swelling, orthopnea, PND.? No abdominal pain or changes in urinary or bowel habits. In the emergency department, patient was found to be wheezing and in mild respiratory distress. Hospital course Patient was admitted for treatment with IV steroids, Antibiotics and bronchodilator nebulizer for COPD exacerbation and LLL atelactasis concerning for pneumonia. weaned off oxygen and was able to ambulate on room air with no reported dyspnea. will be discharged on Azithryomycin, Ceftin, Prednisone and cough medication. advised strongly to quit smoking. Continue Azithromycin and Ceftin as prescribed rescue inhalor as needed Prednisone for 4 more days Quit smoking Time Spent with Patient Time attestation: Total time spent providing and/or coordinating discharge services: Discharge coordination time: Less than 30 minutes Quality: Safe Use of Opioids Does Pt have an Active Cancer Diagnosis on the Problem List?: No Quality: Stroke Does the patient have a stroke diagnosis?: No Physical Exam Vital Signs: Vital Signs: Last Vital Signs Temp 97.8 F 07/03/22 07:45 Pulse 89 07/03/22 07:45 Resp 17 07/03/22 07:45 BP 150/90 H 07/03/22 07:45 Pulse Ox 92 07/03/22 07:45 O2 Del Method 07/03/22 07:45 BMI result Body Mass Index 29.6 Const: Other: Constitutional : Alert, oriented, not in distress Neck : Normal inspection, Supple Cardiovascular : RRR, no JVP, no lower extremity edema Respiratory : fair bilateral air entry, no crackles, scattered expiratory wheezes bilaterally Gastrointestinal: soft, lax, Normal bowel sounds, Non tender Skin : Warm, Dry Neurological : Alert & oriented x3, No focal deficit DS: Data Data Completed and Pending Completed studies during hospitalization [Text1]: Procedures Excision of Stomach, Pylorus, Via Natural or Artificial Opening Endoscopic, Diagnostic (09/23/21) Transfusion of Nonautologous Red Blood Cells into Peripheral Vein, Percutaneous Approach (09/23/21) Labs on day of discharge: Laboratory Results - last 24 hr 07/02/22 07/02/22 07/02/22 15:18 15:18 15:18 WBC 7.0 RBC 5.95 H D Hgb 12.1 D Hct 39.3 D MCV 66.1 L MCH 20.3 L MCHC 30.8 L RDW 14.8 Plt Count 323 MPV 9.2 L Immature Gran % (Auto) 0.7 H Neut % (Auto) 57.8 Lymph % (Auto) 31.5 [place] % (Auto) 7.9 Eos % (Auto) 1.7 Baso % (Auto) 0.4 Lymph # (Auto) 2.2 [place] # (Auto) 0.6 Eos # (Auto) 0.1 Baso # (Auto) 0.0 Abs Immat Gran (auto) 0.05 H Absolute Neuts (auto) 4.0 Absolute Nucleated RBC 0.000 Nucleated RBC % (auto) 0.0 Smear Tech's Comments D-Dimer High Sensitivty Sodium 141 Potassium 4.7 D Chloride 105 Carbon Dioxide 26 Anion Gap 15 BUN 10 Creatinine 0.72 Estim Creat Clear Calc 77.9 Estimated GFR > 60 Random Glucose 90 Lactic Acid Calcium 9.1 Iron TIBC % Saturation Unsat Iron Binding Troponin I High Sens < 3.5 Influenza Type A (PCR) Influenza Type B (PCR) RSV RNA Qual (PCR) SARS-CoV-2 RNA (RT-PCR) 07/02/22 07/02/22 07/02/22 21:17 21:17 23:40 WBC RBC Hgb Hct MCV MCH MCHC RDW Plt Count MPV Immature Gran % (Auto) Neut % (Auto) Lymph % (Auto) [place] % (Auto) Eos % (Auto) Baso % (Auto) Lymph # (Auto) [place] # (Auto) Eos # (Auto) Baso # (Auto) Abs Immat Gran (auto) Absolute Neuts (auto) Absolute Nucleated RBC Nucleated RBC % (auto) Smear Tech's Comments D-Dimer High Sensitivty 194 Sodium Potassium Chloride Carbon Dioxide Anion Gap BUN Creatinine Estim Creat Clear Calc Estimated GFR Random Glucose Lactic Acid 0.8 Calcium Iron 68 TIBC 318 % Saturation 21 Unsat Iron Binding 250 Troponin I High Sens Influenza Type A (PCR) Influenza Type B (PCR) RSV RNA Qual (PCR) SARS-CoV-2 RNA (RT-PCR) 07/03/22 07/03/22 00:02 06:47 WBC 12.2 H RBC 6.25 H Hgb 12.9 Hct 40.6 MCV 65.0 L MCH 20.6 L MCHC 31.8 RDW 15.2 Plt Count 365 MPV 9.4 Immature Gran % (Auto) 0.7 H Neut % (Auto) 90.1 H Lymph % (Auto) 6.9 L [place] % (Auto) 2.1 Eos % (Auto) 0.0 Baso % (Auto) 0.2 Lymph # (Auto) 0.8 L [place] # (Auto) 0.3 Eos # (Auto) 0.0 Baso # (Auto) 0.0 Abs Immat Gran (auto) 0.08 H Absolute Neuts (auto) 11.0 H Absolute Nucleated RBC 0.000 Nucleated RBC % (auto) 0.0 Smear Tech's Comments VERIFIED D-Dimer High Sensitivty Sodium Potassium Chloride Carbon Dioxide Anion Gap BUN Creatinine Estim Creat Clear Calc Estimated GFR Random Glucose Lactic Acid Calcium Iron TIBC % Saturation Unsat Iron Binding Troponin I High Sens Influenza Type A (PCR) NEGATIVE Influenza Type B (PCR) NEGATIVE RSV RNA Qual (PCR) NEGATIVE SARS-CoV-2 RNA (RT-PCR) POSITIVE A Imaging Chest x-ray: Radiologist's impression: ITS Impressions Chest X-Ray 07/02/22 15:29 IMPRESSION: Question atelectasis or small infiltrate at the left lung base. Discharge Plan Discharge Patient Disposition: Home, Self-Care Referrals: Daljit Irby MD [Primary Care Provider] - 2 days Discharge Medications: New prednisone 20 mg Tablet 40 mg PO DAILY 4 Days Qty: 8 0RF benzonatate 100 mg Capsule 200 mg PO TID PRN (Reason: Cough) Qty: 20 0RF azithromycin 500 mg Tablet 500 mg PO Q24H 4 Days Qty: 4 0RF cefuroxime axetil 500 mg tablet 500 mg PO BID Qty: 10 0RF Continued benztropine 0.5 mg Tablet 0.5 mg PO DAILY lorazepam 0.5 mg tablet 0.5 mg PO BID PRN (Reason: anxiety) Qty: 10 0RF benztropine 0.5 mg Tablet 1 mg PO BEDTIME lamotrigine 200 mg Tablet 200 mg PO BEDTIME duloxetine 60 mg Capsule, Delayed Rel Sprinkle 60 mg PO BID trazodone 100 mg Tablet 100 mg PO BEDTIME quetiapine 25 mg tablet 1 tab PO BEDTIME ibuprofen 800 mg tablet 1 tab PO TID PRN (Reason: Pain) sertraline 25 mg tablet 1 tab PO DAILY aspirin 81 mg Tablet,Delayed Release (Dr/Ec) 81 mg PO DAILY cyanocobalamin (vitamin B-12) [Vitamin B-12] 1,000 mcg tablet extended release 1,000 mcg PO BEDTIME ferrous sulfate 325 mg (65 mg iron) tablet 325 mg PO BEDTIME albuterol sulfate [ProAir HFA] 90 mcg/actuation HFA aerosol inhaler 2 puff inhalation Q4-6H PRN (Reason: shortness of breath or wheezing) Qty: 8.5 0RF ferrous sulfate 325 mg (65 mg iron) tablet 325 mg PO TID 30 Days Qty: 90 0RF risperidone 4 mg tablet 1 tab PO QPM omeprazole 40 mg capsule,delayed release(DR/EC) 40 mg PO DAILY Rx Instructions: After 8 weeks to take it daily Discharge Orders: Discharge Order (Routine); Ordered 07/03/22 Ordered By: Vivian Robles Diet: Advance to usual diet Activity on Discharge: As tolerated Stand Alone Forms: Patient Portal Discharge page Care Plan Goals: Read below Health Concerns: Read below Plan of Treatment: Read below Assessment: You were admitted for treatment for COPD exacerbation and evidence of pneumonia with IV antibiotics, steroids and nebulizers with good response. Continue Azithromycin and Ceftin as prescribed rescue inhalor as needed Prednisone for 4 more days Quit smoking Patient Instructions: Pneumonia (ED), Acute Cough (ED)
--- NOTE | 2022-07-03 08:41 | PHA.MEDREC ---
Pharmacy Consult ? Medication Reconciliation Pharmacy has completed the medication reconciliation. Patient was able to recognize all names of medications. Kisha Espinoza, IngridD
--- NOTE | 2022-07-03 08:51 | MHC.CM.PN ---
pt dcd home no skilled servceis ordered by
--- NOTE | 2022-07-03 08:52 | PC.NURSE ---
0845-pt given discharge information. questions answered. IV removed. 0850-pt discharged and left on her own.
== END 2022-07-03 08:45 | disposition home or self-care (01) ==
LOC: HO.ED 22:18 → HO.EDOVER 22:32
PROVIDERS: Physician Assistant; Admitting Provider Student in an Organized Health Care Education/Training Program; Emergency Provider Internal Medicine; PCP Internal Medicine; Visit Provider Student in an Organized Health Care Education/Training Program
DX: U07.1 COVID-19 (principal); J12.82 Pneumonia due to coronavirus disease 2019; J44.1 Chronic obstructive pulmonary disease with (acute) exacerbation; R06.03 Acute respiratory distress; D50.9 Iron deficiency anemia, unspecified; F17.210 Nicotine dependence, cigarettes, uncomplicated; F12.90 Cannabis use, unspecified, uncomplicated; Z79.82 Long term (current) use of aspirin; Z79.899 Other long term (current) drug therapy
CPT/HCPCS: 0241U; 36415; 71045; 80048; 83540; 83605; 84484; 85025; 85379; 87040; 93005; 94640; 96365; 96366; 96367; 96372; 99219; 99285; J0696; J1650; J2930; J3475

== ENCOUNTER 2022-10-07 07:24 | Emergency (ER) | payer MEDICAID, SELFPAY ==
--- NOTE | ~2022-10-07 | XR_ITS ---
EXAMINATION: XR KNEE, RIGHT CLINICAL INFORMATION: Right knee bruising after fall COMPARISON: None TECHNIQUE: Four views of the right knee. FINDINGS: There is no visible acute fracture, dislocation or loose bodies. Mild loss of medial and patellofemoral compartment joint space seen. There is no suprapatellar joint effusion. The soft tissues are normal. XR/XR knee RT 2V IMPRESSION: Mild degenerative changes medial and patellofemoral compartment. No visible acute fracture or dislocation seen.
[2022-10-07 07:25] VITALS: BP 132/75; PULSE 98; RESP 16; TEMP 36.7; O2SAT 98; BMI 30.7
--- NOTE | 2022-10-07 08:09 | ED_ITS ---
HPI - Extremity Injury (Lower) General Chief Complaint: Extremity Injury, Lower Stated Complaint: fall rt knee pain Time Seen by Provider: 10/07/22 07:56 Source: patient Mode of arrival: ambulatory Limitations: no limitations History of Present Illness HPI Narrative: 61-year-old female came in for evaluation of right knee injury after a fall. Patient tripped over her dog at home 4 days ago causing her to fall forward landing on her right knee, no head injury, no LOC, no headache, no neck pain, no weakness, no numbness. Patient is here today for evaluation of right knee swelling and pain to the right knee. 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 No bleeding tendency or disorder as far as the patient know Related Data Home Medications Medication Instructions Recorded Confirmed benztropine 0.5 mg tablet 1 mg PO BEDTIME 09/01/21 07/03/22 duloxetine 60 mg capsule,delayed 60 mg PO BID 09/01/21 07/03/22 release sprinkle lamotrigine 200 mg tablet 200 mg PO BEDTIME 09/01/21 07/03/22 trazodone 100 mg tablet 100 mg PO BEDTIME 09/01/21 07/03/22 benztropine 0.5 mg tablet 0.5 mg PO DAILY 09/23/21 07/03/22 aspirin 81 mg tablet,delayed 81 mg PO DAILY 02/14/22 07/03/22 release cyanocobalamin (vitamin B-12) 1,000 mcg PO BEDTIME 02/14/22 07/03/22 1,000 mcg tablet,extended release (Vitamin B-12 ER) ferrous sulfate 325 mg (65 mg 325 mg PO BEDTIME 02/14/22 07/03/22 iron) tablet ibuprofen 800 mg tablet 1 tab PO TID PRN Pain 02/14/22 07/03/22 quetiapine 25 mg tablet 1 tab PO BEDTIME 02/14/22 07/03/22 sertraline 25 mg tablet 1 tab PO DAILY 02/14/22 07/03/22 omeprazole 40 mg capsule,delayed 40 mg PO DAILY 07/03/22 07/03/22 release risperidone 4 mg tablet 1 tab PO QPM 07/03/22 07/03/22 Previous Rx's Medication Instructions Recorded lorazepam 0.5 mg tablet 0.5 mg PO BID PRN anxiety #10 tabs 09/30/21 albuterol sulfate 90 mcg/actuation 2 puff inhalation Q4-6H PRN 02/14/22 aerosol inhaler (ProAir HFA) shortness of breath or wheezing #8.5 grams azithromycin 500 mg tablet 500 mg PO Q24H 4 days #4 tabs 07/03/22 benzonatate 100 mg capsule 200 mg PO TID PRN Cough #20 caps 07/03/22 cefuroxime axetil 500 mg tablet 500 mg PO BID #10 tabs 07/03/22 prednisone 20 mg tablet 40 mg PO DAILY 4 days #8 tabs 07/03/22 Allergies Allergy/AdvReac Type Severity Reaction Status Date / Time No Known Allergies Allergy Verified 09/23/21 13:19 Review of Systems Review of Systems: All other systems are reviewed and are negative Constitutional: Reports as per HPI and Reports no additional constitutional complaints Eyes: Reports as per HPI and Reports no additional eye complaints Reports system reviewed and no additional complaints, except as documented Cardiovascular: Reports as per HPI and Reports no additional cardiovascular complaints Respiratory: Reports as per HPI and Reports no additional respiratory complaints Gastrointestinal: Reports as per HPI and Reports no additional gastrointestinal complaints Genitourinary: Reports no additional female genitourinary complaints Musculoskeletal: Reports no additional musculoskeletal complaints Skin/Breast: Reports system reviewed and no additional complaints, except as docu Psychiatric: Reports no additional psychiatric complaints Endocrine: Reports no additional endocrine complaints Hematologic/Lymphatic: Reports no additional hematologic/lymphatic complaints Allergic/Immunologic: Reports no additional allergic/immunologic complaints Reports system reviewed and no additional complaints, except as documented and Reports Abnormal speech present PMFSH Past Medical History Medical History Anemia Anemia COPD (chronic obstructive pulmonary disease) Hx of head injury Mood disorder Panic anxiety syndrome Pelvic mass Tobacco use disorder Surgical History H/O: hysterectomy History of mandibular surgery Hx of colonoscopy Social History Social History Household Members: Spouse Housing: House Do you presently have visiting nurse or other home services: Yes Alcohol intake: unknown Patient Tobacco Use Status: Current everyday Tobacco user Tobacco use type: Cigarette Cigarette Packs Per Day: 1 Cigarettes Per Day: 20.0 Second Hand Smoke Exposure: No Substance Use Type: Marijuana Advance Directives: No Current occupational status: employed Physical Exam Vital Signs: Vital Signs: Last Vital Signs Temp 98.1 F 10/07/22 07:25 Pulse 98 10/07/22 07:25 Resp 16 10/07/22 07:25 BP 132/75 10/07/22 07:25 Pulse Ox 98 10/07/22 07:25 O2 Del Method 10/07/22 07:25 BMI result Body Mass Index 30.7 Vital signs have been reviewed as appeared to be correct. Blood pressure normal. Heart rate normal. Respiration rate normal. Temperature normal. Oxygen saturation normal. Appearance: Alert. Oriented X3. No acute distress. Head: Normal external exam. Normocephalic. Atraumatic. No [place] signs noted. No raccoon eyes noted Eyes: PERRLA. EOMI. Conjunctiva and sclera normal. Eyelids normal. ENT: TM's Normal. Pharynx normal. Uvula midline. Moist mucous membranes. No trismus noted. No drooling noted. No muffled voice noted. Neck: Normal inspection. Neck supple. FROM. No adenopathy. Thyroid Normal. No meningeal signs. No neck mass noted. CVS: Normal heart rate and rhythm. Heart sound normal. No murmurs noted. Pulses normal throughout. Respiratory: No respiratory distress. Painless inspiration. Breath sounds normal. No wheezes/rales/rhonchi noted. Chest nontender. No accessory muscle usage noted or decreased air movement noted. Abdomen: Soft and nontender. Bowel sounds normal in all 4 quadrants. No distention noted. No organomegaly noted. No visible injury noted. Back: No CVA tenderness. Full range of motion noted. Skin: Skin warm and dry. Normal skin color. Normal skin turgor. No rashes/lesions/lacerations noted. Extremities: Right knee: Diffuse ecchymosis over the right knee, slight swelling over the right knee, no point of tenderness or step-off or deformity in the right knee. Neuro: Oriented X 3. Cranial nerve exam: II-XII are grossly intact No motor deficit. No sensory deficit. Reflexes normal. Course Course Course Narrative: Right lower extremities him at home a and contusion for 4 days appear to be stable, hemodynamically stable with VSS, stable H&H at baseline, no coagulopathy with normal platelet. Patient was instructed to apply ice, and elevate right lower extremities, no further medical intervention is needed at this point. Medical Decision Making Differential Diagnosis Differential Diagnoses: The differential diagnosis associated with the pr esentation includes (Right knee fracture, right knee contusion, subcutaneous hematoma.) Lab Data MDM Lab Attestation statement: I reviewed the patient's lab results. 10/07/22 08:21 10/07/22 08:21 Labs: Lab Results 10/07/22 10/07/22 10/07/22 Range/Units 08:21 08:21 08:21 WBC 9.1 (4.8-10.8) X10*3/uL RBC 5.21 (4.20-5.50) X10*6/uL Hgb 11.0 L (12.0-16.0) g/dl Hct 36.2 L (37.0-47.0) % MCV 69.5 L (80.0-98.0) fL MCH 21.1 L (27.0-33.0) pg MCHC 30.4 L (31.0-35.0) g/dl RDW 15.2 (11.0-16.0) % Plt Count 285 (160-400) X10*3/uL MPV 9.4 (9.4-12.3) fL Immature Gran % (Auto) 0.4 (0.0-0.4) % Neut % (Auto) 65.7 (45-73) % Lymph % (Auto) 19.0 L (20-40) % [place] % (Auto) 9.5 (2-11) % Eos % (Auto) 4.5 H (0-4) % Baso % (Auto) 0.9 (0-2) % Lymph # (Auto) 1.7 (1.2-4.9) X10*3/uL [place] # (Auto) 0.9 (0.1-1.2) X10*3/uL Eos # (Auto) 0.4 (0.0-0.4) X10*3/uL Baso # (Auto) 0.1 (0.0-0.2) X10*3/uL Abs Immat Gran (auto) 0.04 H (0.00-0.03) X10*3/uL Absolute Neuts (auto) 6.0 (2.0-8.3) x10*3/uL Absolute Nucleated RBC 0.000 (0.0-0.012) X10*3/uL Nucleated RBC % (auto) 0.0 (0.0-0.2) /100WBC PT 10.8 (10.0-13.1) SEC INR 0.9 (0.9-1.1) APTT 32.0 (26.0-36.4) SEC Sodium 141 (135-145) mmol/L Potassium 4.6 (3.3-5.1) mmol/L Chloride 107 (96-108) mmol/L Carbon Dioxide 24 (22-29) mmol/L Anion Gap 15 (12-20) BUN 10 (9-16) mg/dL Creatinine 0.74 (0.5-1.4) mg/dL Estim Creat Clear Calc 77.3 Estimated GFR > 60 Random Glucose 122 H (60-115) mg/dL Calcium 8.7 (8.4-10.2) mg/dL Independent Interpretation I performed an independent interpretation of an: Plain X-Ray (Right knee: No acute fracture dislocation.) Radiology Impression Discussion of test interpretation with radiology: I have reviewed the radi ologist's reading. Discharge Plan Discharge Clinical Impression: Hematoma and contusion Patient Disposition: Home, Self-Care Instructions: Contusion in Adults (ED) Prescriptions: No Action benztropine 0.5 mg Tablet 0.5 mg PO DAILY lorazepam 0.5 mg tablet 0.5 mg PO BID PRN (Reason: anxiety) Qty: 10 0RF benztropine 0.5 mg Tablet 1 mg PO BEDTIME lamotrigine 200 mg Tablet 200 mg PO BEDTIME duloxetine 60 mg Capsule, Delayed Rel Sprinkle 60 mg PO BID trazodone 100 mg Tablet 100 mg PO BEDTIME quetiapine 25 mg tablet 1 tab PO BEDTIME ibuprofen 800 mg tablet 1 tab PO TID PRN (Reason: Pain) sertraline 25 mg tablet 1 tab PO DAILY aspirin 81 mg Tablet,Delayed Release (Dr/Ec) 81 mg PO DAILY cyanocobalamin (vitamin B-12) [Vitamin B-12] 1,000 mcg tablet extended release 1,000 mcg PO BEDTIME ferrous sulfate 325 mg (65 mg iron) tablet 325 mg PO BEDTIME albuterol sulfate [ProAir HFA] 90 mcg/actuation HFA aerosol inhaler 2 puff inhalation Q4-6H PRN (Reason: shortness of breath or wheezing) Qty: 8.5 0RF risperidone 4 mg tablet 1 tab PO QPM omeprazole 40 mg capsule,delayed release(DR/EC) 40 mg PO DAILY Rx Instructions: After 8 weeks to take it daily prednisone 20 mg Tablet 40 mg PO DAILY 4 Days Qty: 8 0RF benzonatate 100 mg Capsule 200 mg PO TID PRN (Reason: Cough) Qty: 20 0RF azithromycin 500 mg Tablet 500 mg PO Q24H 4 Days Qty: 4 0RF cefuroxime axetil 500 mg tablet 500 mg PO BID Qty: 10 0RF Referrals: Daljit Irby MD [Primary Care Provider] -
[2022-10-07 08:25] LABS: MANUAL DIFF FLAG NO
[2022-10-07 08:28] LABS: Basophils Absolute Auto 0.1 X10*3/uL (0.0-0.2); Basophils Percent Auto 0.9 % (0-2); Eosinophils Absolute Auto 0.4 X10*3/uL (0.0-0.4); Eosinophils Percent Auto 4.5 % (0-4); Hematocrit 36.2 % (37.0-47.0); Imm Gran Abs Auto 0.04 X10*3/uL (0.00-0.03); Imm Gran Pct Auto 0.4 % (0.0-0.4); Lymphocytes Absolute Auto 1.7 X10*3/uL (1.2-4.9); Mean Corpuscular HGB Conc 30.4 g/dl (31.0-35.0); Mean Corpuscular Hemoglobin 21.1 pg (27.0-33.0); Mean Corpuscular Volume 69.5 fL (80.0-98.0); Mean Platelet Volume 9.4 fL (9.4-12.3); Monocytes Absolute Auto 0.9 X10*3/uL (0.1-1.2); Monocytes Percent Auto 9.5 % (2-11); Neutrophils Percent Auto 65.7 % (45-73); Platelet Count 285 X10*3/uL (160-400); Red Blood Count 5.21 X10*6/uL (4.20-5.50); Red Cell Distribution Width 15.2 % (11.0-16.0); White Blood Count 9.1 X10*3/uL (4.8-10.8)
[2022-10-07 08:34] LABS: INTERNATIONAL NORM RATIO 0.9 (0.9-1.1); Prothrombin Time 10.8 SEC (10.0-13.1)
[2022-10-07 09:00] LABS: Anion Gap 15 (12-20); Blood Urea Nitrogen 10 mg/dL (9-16); Calcium 8.7 mg/dL (8.4-10.2); Carbon Dioxide 24 mmol/L (22-29); Chloride 107 mmol/L (96-108); Creatinine Clr Calc Pharmacy 77.3; Estimated Glomerular Filt Rate > 60; Glucose Random 122 mg/dL (60-115); Potassium 4.6 mmol/L (3.3-5.1); Sodium 141 mmol/L (135-145)
== END 2022-10-07 10:03 | disposition home or self-care (01) ==
PROVIDERS: Emergency Provider Emergency Medicine; PCP Internal Medicine
DX: S80.01XA Contusion of right knee, initial encounter (principal); W01.0XXA Fall on same level from slipping, tripping and stumbling without subsequent striking against object, initial encounter; Y93.9 Activity, unspecified; Y92.9 Unspecified place or not applicable; Y99.9 Unspecified external cause status; Z79.899 Other long term (current) drug therapy
CPT/HCPCS: 36415; 73560; 80048; 85025; 85610; 85730; 99282; 99284

== ENCOUNTER 2022-10-16 15:03 | Outpatient (REF) | payer MEDICAID, SELFPAY ==
--- NOTE | ~2022-10-16 | US_ITS ---
EXAMINATION: US EXTREMITY NONVASCULAR CLINICAL INFORMATION: Injury of right lower leg. COMPARISON: None TECHNIQUE: Limited nonvascular ultrasound of the extremity right knee was performed. FINDINGS: There is a complex fluid collection seen anterior to the right knee measuring 11.8 cm in length, 1.4 cm wide and 13.8 cm in width suggestive of hematoma. Wether this is communicating with the suprapatellar bursa is not known. US/US extremity nonvascular IMPRESSION: Complex fluid collection anterior to the right knee likely hematoma. This can be drained under ultrasound guidance.
== END 2022-10-16 15:04 | disposition home or self-care (01) ==
LOC: HO.US 15:03
PROVIDERS: PCP Internal Medicine; Visit Provider Physician Assistant
DX: S89.91XA Unspecified injury of right lower leg, initial encounter (principal)
CPT/HCPCS: 76882

== ENCOUNTER 2022-11-08 11:15 | Outpatient (REF) | payer MEDICAID, SELFPAY ==
--- NOTE | ~2022-11-08 | XR_ITS ---
EXAMINATION: XR KNEE AP STANDING, BILATERAL XR KNEE AXIAL, RIGHT CLINICAL INFORMATION: Pain. COMPARISON: Radiographs dated 10/07/2022. TECHNIQUE: AP bilateral standing view of the knees was obtained, together with a right sunrise view. FINDINGS: Bony alignment and mineralization are normal. The bilateral lateral and medial joint space compartments are well-maintained. There is mild peripheral osteophyte formation of the medial right tibial plateau. There is moderate peripheral osteophyte formation of the right patellofemoral compartment. No fracture or dislocation is seen. There is no significant varus or valgus configuration noted bilaterally. XR/XR knee RT 1V IMPRESSION: 1. There is mild osteoarthritic change of the medial and patellofemoral joint space compartment of the right knee. 2. No unusual degenerative change is seen of the left knee on single AP view. 3. No significant varus or valgus configuration is seen bilaterally.
--- NOTE | ~2022-11-08 | XR_ITS ---
EXAMINATION: XR KNEE AP STANDING, BILATERAL XR KNEE AXIAL, RIGHT CLINICAL INFORMATION: Pain. COMPARISON: Radiographs dated 10/07/2022. TECHNIQUE: AP bilateral standing view of the knees was obtained, together with a right sunrise view. FINDINGS: Bony alignment and mineralization are normal. The bilateral lateral and medial joint space compartments are well-maintained. There is mild peripheral osteophyte formation of the medial right tibial plateau. There is moderate peripheral osteophyte formation of the right patellofemoral compartment. No fracture or dislocation is seen. There is no significant varus or valgus configuration noted bilaterally. XR/XR knee standing BI IMPRESSION: 1. There is mild osteoarthritic change of the medial and patellofemoral joint space compartment of the right knee. 2. No unusual degenerative change is seen of the left knee on single AP view. 3. No significant varus or valgus configuration is seen bilaterally.
== END 2022-11-08 11:16 | disposition home or self-care (01) ==
LOC: HO.HOSX 11:15
PROVIDERS: Visit Provider Physician Assistant
DX: S82.011 Displaced osteochondral fracture of right patella (principal); W01.0XXD Fall on same level from slipping, tripping and stumbling without subsequent striking against object, subsequent encounter
CPT/HCPCS: 20610; 73560; 73565; 99212; J1040

== ENCOUNTER 2022-11-23 07:28 | Emergency (ER) | payer MEDICAID, SELFPAY ==
--- NOTE | ~2022-11-23 | XR_ITS ---
EXAMINATION: XR KNEE, RIGHT CLINICAL INFORMATION: Pain and swelling. COMPARISON: 11/08/2022 TECHNIQUE: Four views of the right knee. FINDINGS: No fracture or subluxation. Compartmental joint spaces are maintained. Small tricompartmental marginal osteophytes. Small joint effusion. Prominent anterior soft tissue swelling. XR/XR knee RT 4V IMPRESSION: Prominent anterior soft tissue swelling. Small joint effusion. Mild tricompartmental degenerative changes. No fracture or malalignment.
[2022-11-23 07:31] VITALS: BP 160/84; PULSE 117; RESP 20; TEMP 36.6; O2SAT 97; BMI 30.7
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
[2022-11-23 10:33] LABS: MANUAL DIFF FLAG NO
[2022-11-23 10:45] LABS: Basophils Absolute Auto 0.1 X10*3/uL (0.0-0.2); Basophils Percent Auto 0.8 % (0-2); Eosinophils Absolute Auto 0.3 X10*3/uL (0.0-0.4); Eosinophils Percent Auto 2.8 % (0-4); Hematocrit 35.8 % (37.0-47.0); Imm Gran Abs Auto 0.05 X10*3/uL (0.00-0.03); Imm Gran Pct Auto 0.6 % (0.0-0.4); Lymphocytes Absolute Auto 1.7 X10*3/uL (1.2-4.9); Lymphocytes Percent Auto 18.9 % (20-40); Mean Corpuscular HGB Conc 30.7 g/dl (31.0-35.0); Mean Corpuscular Hemoglobin 21.3 pg (27.0-33.0); Mean Corpuscular Volume 69.2 fL (80.0-98.0); Mean Platelet Volume 9.6 fL (9.4-12.3); Monocytes Absolute Auto 0.8 X10*3/uL (0.1-1.2); Neutrophils Absolute Auto 6.1 x10*3/uL (2.0-8.3); Neutrophils Percent Auto 67.9 % (45-73); Platelet Count 346 X10*3/uL (160-400); Red Blood Count 5.17 X10*6/uL (4.20-5.50); Red Cell Distribution Width 17.3 % (11.0-16.0); White Blood Count 8.9 X10*3/uL (4.8-10.8)
[2022-11-23 10:53] LABS: INTERNATIONAL NORM RATIO 0.9 (0.9-1.1); Prothrombin Time 10.6 SEC (10.0-13.1)
[2022-11-23 11:01] LABS: Anion Gap 10 (12-20); Blood Urea Nitrogen 16 mg/dL (9-16); C Reactive Protein 0.18 mg/dL (< or = 0.50); Carbon Dioxide 29 mmol/L (22-29); Chloride 107 mmol/L (96-108); Creatinine Clr Calc Pharmacy 71.4; Estimated Glomerular Filt Rate > 60; Glucose Random 100 mg/dL (60-115); Potassium 4.7 mmol/L (3.3-5.1); Sodium 141 mmol/L (135-145)
[2022-11-23] MEDS: Lidocaine HCl 2%/Epi 1:100,000 20 ML VIAL INFILTRATI (11:04)
[2022-11-23 11:38] LABS: Erythrocyte Sedimentation Rate 5 MM/HR (0-20)
[2022-11-23 11:45] VITALS: BP 145/84; PULSE 99; RESP 16; TEMP 36.8; O2SAT 92
== END 2022-11-23 11:50 | disposition home or self-care (01) ==
PROVIDERS: Physician Assistant; Emergency Provider Emergency Medicine Emergency Medical Services; PCP Internal Medicine
DX: M70.51 Other bursitis of knee, right knee (principal); R60.0 Localized edema; M25.561 Pain in right knee; F17.210 Nicotine dependence, cigarettes, uncomplicated; Z71.6 Tobacco abuse counseling; Z79.899 Other long term (current) drug therapy
CPT/HCPCS: 20610; 36415; 73564; 80048; 85025; 85610; 85652; 86140; 87070; 87073; 87205; 89060; 99283; 99285

== ENCOUNTER → 2022-11-27 10:12 | Outpatient (BNVA) | payer MEDICAID, SELFPAY | PROVIDERS: PCP Internal Medicine; Visit Provider Physician Assistant | DX: M25.561 Pain in right knee (principal); S82.001A Unspecified fracture of right patella, initial encounter for closed fracture; W01.0XXA Fall on same level from slipping, tripping and stumbling without subsequent striking against object, initial encounter; Y93.01 Activity, walking, marching and hiking; Y92.89 Other specified places as the place of occurrence of the external cause; Y99.8 Other external cause status | CPT/HCPCS: 99212 ==

== ENCOUNTER 2022-11-29 19:10 | Outpatient (REF) | payer MEDICAID, SELFPAY ==
--- NOTE | ~2022-11-29 | MR_ITS ---
EXAMINATION: MR KNEE WITHOUT CONTRAST, RIGHT CLINICAL INFORMATION: Pain. Swelling. Bruising. Numbness. Fall September 2022. COMPARISON: Radiograph dated 11/23/2022. TECHNIQUE: MRI of the knee without contrast was performed using routine sequences on a high-field scanner. FINDINGS: MENISCI: Medial Meniscus: A complex horizontal tear is present at the posterior horn and body of the medial meniscus with partial extrusion of an undersurface flap fragment at the meniscal body, displaced into the meniscotibial recess. Inner margin fraying is present at the posterior horn. Lateral Meniscus: Inner margin fraying is evident at the meniscal body without a discrete tear. LIGAMENTS: Cruciate: Intact. Collateral: Intact. EXTENSOR MECHANISM: Minimal enthesopathic spurring at the quadriceps tendon insertion on the patella. Quadriceps and patellar tendons are intact. ARTICULAR CARTILAGE/BONE: Patellofemoral Compartment: There is moderate nonuniform chondral thinning at the patella diffusely with associated chondral fibrillation and small marginal osteophytes. More mild chondral thinning at the proximal aspect of the trochlea. No fractures. Medial Compartment: Small marginal osteophytes. Minimal chondral surface irregularity. Lateral Compartment: Mild nonuniform chondral thinning is evident at the lateral tibial plateau and, to a lesser extent, at the posterior weight-bearing surface of the lateral femoral condyle. Small marginal osteophytes. JOINT FLUID AND BURSAE: Small joint effusion. No De's cyst. There is a large, complex collection in the prepatellar bursa extending off the proximal margin of the study, measuring at least 9.3 x 3.7 x 15 cm (transverse x AP x craniocaudal). This collection demonstrates increased signal intensity on T1-weighted images, likely due to internal blood products or proteinaceous material. There is a discrete, thickened rim to the collection. No additional fluid collections. Surrounding soft tissues are edematous. MR/MR knee RT wo con IMPRESSION: 1. Large, complex collection in the prepatellar bursa, likely a massive seroma/hematoma. Based on the location, this likely corresponds to a closed degloving injury (Sutherland-Zak lesion) and may require drainage and/or debridement to resolve. 2. Complex horizontal tear of the posterior horn and body of the medial meniscus. 3. Mild tricompartmental osteoarthritis, most pronounced in the patellofemoral compartment. 4. Small joint effusion.
== END 2022-11-29 19:11 | disposition home or self-care (01) ==
LOC: HO.MRI 19:10
PROVIDERS: PCP Internal Medicine; Visit Provider Physician Assistant
DX: S82.001A Unspecified fracture of right patella, initial encounter for closed fracture (principal)
CPT/HCPCS: 73721

== ENCOUNTER 2023-05-31 09:27 | Emergency (ER) | payer MEDICAID, SELFPAY ==
--- NOTE | ~2023-05-31 | XR_ITS ---
EXAMINATION: XR CHEST CLINICAL INFORMATION: SOB. COMPARISON: None available. TECHNIQUE: 2 views of the chest were obtained. FINDINGS: No significant abnormality is noted involving the heart, lungs, mediastinum, bony thorax or soft tissues. XR/XR chest 2V IMPRESSION: Unremarkable chest examination.
[2023-05-31 10:00] VITALS: BP 135/86; PULSE 77; RESP 24; O2SAT 93; BMI 34.2
--- NOTE | 2023-05-31 11:37 | ED_ITS ---
HPI - SOB/Dyspnea General Chief Complaint: Dyspnea Stated Complaint: Diff Breathing Pneumonia Time Seen by Provider: 05/31/23 11:04 Source: patient Mode of arrival: ambulatory Limitations: no limitations History of Present Illness HPI Narrative: 62 year old female with history of COPD presents to ER for evaluation of persistent shortness of breath and cough. Reports that symptoms including shortness of breath, cough, rhinorrhea, fevers, chills started over 1 week ago. She went to her PCP 1 week ago, 05/24, and was given Levaquin, prednisone, and albuterol nebulizer for suspected pneumonia. Viral respiratory panel in PCP office was negative. Yesterday, she called her PCP again for failure of symptom improvement, and her PCP added doxycycline. Today, she presents with persistent shortness of breath, cough, rhinorrhea, soft stools. Reports she has mostly dry cough, with occasional production of white mucous. Reports shortness of breath while making dinner last night. Denies worsening SOB with supine position. Denies fevers, chills, headache, chest pain, nausea, vomiting, urinary symptoms, calf tenderness. Reports she smokes 1 PPD of cigarettes for the last 50 years, but has not smoked since symptoms started. Takes Motrin regularly. No supplemental oxygen at baseline. MD elicited complaint: shortness of breath and cough Pertinent past history: COPD Onset (ago): week(s) Context: recent illness Timing: constant Exacerbating factors: exertion Relieving factors: rest Known history of: COPD Associated symptoms: cough and sputum production Treatment prior to arrival: bronchodilator Related Data Home oxygen amount: none Home Medications Medication Instructions Recorded Confirmed benztropine 0.5 mg tablet 1 mg PO BEDTIME 09/01/21 07/03/22 duloxetine 60 mg capsule,delayed 60 mg PO BID 09/01/21 07/03/22 release sprinkle lamotrigine 200 mg tablet 200 mg PO BEDTIME 09/01/21 07/03/22 trazodone 100 mg tablet 100 mg PO BEDTIME 09/01/21 07/03/22 benztropine 0.5 mg tablet 0.5 mg PO DAILY 09/23/21 07/03/22 aspirin 81 mg tablet,delayed 81 mg PO DAILY 02/14/22 07/03/22 release cyanocobalamin (vitamin B-12) 1,000 mcg PO BEDTIME 02/14/22 07/03/22 1,000 mcg tablet,extended release (Vitamin B-12 ER) ferrous sulfate 325 mg (65 mg 325 mg PO BEDTIME 02/14/22 07/03/22 iron) tablet ibuprofen 800 mg tablet 1 tab PO TID PRN Pain 02/14/22 07/03/22 quetiapine 25 mg tablet 1 tab PO BEDTIME 02/14/22 07/03/22 sertraline 25 mg tablet 1 tab PO DAILY 02/14/22 07/03/22 omeprazole 40 mg capsule,delayed 40 mg PO DAILY 07/03/22 07/03/22 release risperidone 4 mg tablet 1 tab PO QPM 07/03/22 07/03/22 Previous Rx's Medication Instructions Recorded lorazepam 0.5 mg tablet 0.5 mg PO BID PRN anxiety #10 tabs 09/30/21 albuterol sulfate 90 mcg/actuation 2 puff inhalation Q4-6H PRN 02/14/22 aerosol inhaler (ProAir HFA) shortness of breath or wheezing #8.5 grams azithromycin 500 mg tablet 500 mg PO Q24H 4 days #4 tabs 07/03/22 benzonatate 100 mg capsule 200 mg (2 x 100 mg) PO TID PRN 07/03/22 Cough #20 caps cefuroxime axetil 500 mg tablet 500 mg PO BID #10 tabs 07/03/22 prednisone 20 mg tablet 40 mg (2 x 20 mg) PO DAILY 4 days 07/03/22 #8 tabs acetaminophen 500 mg tablet 500 mg PO Q6H PRN fever or pain 11/23/22 (Tylenol Extra Strength) #14 tabs tramadol 50 mg tablet 50 mg PO Q8H PRN pain, severe #9 11/23/22 tabs ipratropium 0.5 mg-albuterol 3 mg 3 ml inhalation Q4H PRN shortness 05/31/23 (2.5 mg base)/3 mL nebulization of breath or wheezing #90 mL soln Allergies Allergy/AdvReac Type Severity Reaction Status Date / Time No Known Allergies Allergy Verified 11/27/22 10:21 Review of Systems 2 Review of Systems: Yes all other systems are reviewed and are negative PMFSH Past Medical History Medical History Anemia Anemia COPD (chronic obstructive pulmonary disease) Hx of head injury Mood disorder Panic anxiety syndrome Pelvic mass Tobacco use disorder Surgical History H/O: hysterectomy History of mandibular surgery Hx of colonoscopy Social History Social History Household Members: Spouse Housing: House Do you presently have visiting nurse or other home services: Yes Alcohol intake: unknown Patient Tobacco Use Status: Current everyday Tobacco user Tobacco use type: Cigarette Cigarette Packs Per Day: 1 Cigarettes Per Day: 20.0 Second Hand Smoke Exposure: No Substance Use Type: Marijuana Advance Directives: No Advance Directives Information Provided: Yes Current occupational status: employed Physical Exam 2 Vital Signs: Vital Signs: Last Vital Signs Pulse 69 05/31/23 13:07 Resp 17 05/31/23 13:07 BP 159/76 H 05/31/23 13:07 Pulse Ox 93 05/31/23 13:07 O2 Del Method Room Air 05/31/23 13:07 BMI result Body Mass Index 34.2 Const: General: cooperative, healthy appearing, comfortable and no acute distress Nutritional Appearance: overweight Orientation/consciousness: p atient oriented x3 Limitations: no limitations Resp: Effort & Inspection: normal respiratory effort and able to speak in complete sentences Auscultation: wheezes (Expiratory wheezing appreciated in right lower lobe. CTA elsewhere.) Cardio: Rate: regular rate Rhythm: regular rhythm Skin: Other: [place], warm, dry. Neuro: General: patient oriented x3 Extrem: General: Yes no pedal edema, No calf tenderness and No edema Medications Administered Discontinued Medications Generic Name Dose Route Start Last Admin Trade Name Sergioq PRN Reason Stop Dose Admin Albuterol/Ipratropium 3 ml 05/31/23 11:38 05/31/23 12:02 Albuterol/Iprat 2.5/0.5mg 3 Ml Ampul.Neb INHALE 05/31/23 11:39 3 ml ONCE ONE Administration Methylprednisolone Sodium Succinate 60 mg 05/31/23 11:38 05/31/23 12:01 Methylprednisolone Sod Succ 125 Mg/2 Ml Vial IVPUSH 05/31/23 11:39 60 mg ONCE ONE Administration Medical Decision Making Medical Decision Making MDM Narrative: 64 year old female with history of COPD presents for evaluation of persistent shortness of breath, cough. Was treated for pneumonia by her PCP 1 week ago but symptoms persisted. PCP added doxycycline yesterday, and she is presenting to ER for persistent symptoms. Physical exam reveals a female sitting upwards in bed, talking in full sentences, breathing comfortably on room air. Lung auscultation reveals expiratory wheezing in right lower lobe. No calf swelling. Walking around, her O2 dropped to 89% RA briefly and then she recovered to mid 90s. Workup included CXR which was negative. Labs reveal erythrocytosis. Viral respiratory panel negative. patient feeling much better after neb steroid. wheezing is improved upon re- evaluation. SpO2 95% at rest on room air. she is speaking in complete sentences without any respiratory distress Advised patient that her O2 saturation during exertion was concerning and that we recommend admission. Patient declined admission, stating that her breathing has improved. Will discharge with albuterol/ipatropium duoneb, Continued prednisone, doxycycline. She will follow-up with your primary care doctor and strict return precautions were discussed. Patient agrees with plan. Differential Diagnosis Differential Diagnoses: The differential diagnosis associated with the presentation includes COPD exacerbation, CHF exacerbation, pneumonia, acute bronchitis, pulmonary embolism, COVID, influenza, other viral respiratory virus Admission/Observation Consideration of admission/observation: Escalation of care including admission/observation considered Lab Data MDM Lab Attestation statement: I reviewed the patient's lab results. no leukocytosis, low procalcitonin, low suspicion for pneumonia 05/31/23 11:49 05/31/23 11:50 Labs: Lab Results 05/31/23 05/31/23 05/31/23 Range/Units 11:42 11:49 11:50 WBC 8.0 (4.8-10.8) X10*3/uL RBC 5.73 H (4.20-5.50) X10*6/uL Hgb 12.1 (12.0-16.0) g/dl Hct 40.5 (37.0-47.0) % MCV 70.7 L (80.0-98.0) fL MCH 21.1 L (27.0-33.0) pg MCHC 29.9 L (31.0-35.0) g/dl RDW 17.9 H (11.0-16.0) % Plt Count 279 (160-400) X10*3/uL MPV 9.1 L (9.4-12.3) fL Immature Gran % (Auto) 1.3 H (0.0-0.4) % Neut % (Auto) 84.3 H (45-73) % Lymph % (Auto) 9.9 L (20-40) % Bennett % (Auto) 3.8 (2-11) % Eos % (Auto) 0.1 (0-4) % Baso % (Auto) 0.6 (0-2) % Lymph # (Auto) 0.8 L (1.2-4.9) X10*3/uL Bennett # (Auto) 0.3 (0.1-1.2) X10*3/uL Eos # (Auto) 0.0 (0.0-0.4) X10*3/uL Baso # (Auto) 0.1 (0.0-0.2) X10*3/uL Abs Immat Gran (auto) 0.10 H (0.00-0.03) X10*3/uL Absolute Neuts (auto) 6.8 (2.0-8.3) x10*3/uL Absolute Nucleated RBC 0.000 (0.0-0.012) X10*3/uL Nucleated RBC % (auto) 0.0 (0.0-0.2) /100WBC Sodium 140 (135-145) mmol/L Potassium 4.5 (3.3-5.1) mmol/L Chloride 104 (96-108) mmol/L Carbon Dioxide 30 H (22-29) mmol/L Anion Gap 11 L (12-20) BUN 11 (9-16) mg/dL Creatinine 0.87 (0.5-1.4) mg/dL Estim Creat Clear Calc 68.6 Estimated GFR > 60 Random Glucose 107 (60-115) mg/dL Calcium 9.1 (8.4-10.2) mg/dL Magnesium 2.1 (1.6-2.6) mg/dL Total Bilirubin 0.3 (0.0-1.0) mg/dL Direct Bilirubin 0.2 (0.0-0.5) mg/dL AST 9 (5-31) U/L ALT 8 (0-31) U/L Alkaline Phosphatase 59 (39-117) U/L B-Natriuretic Peptide 101 H (<100) pg/mL Total Protein 6.4 L (6.5-8.0) g/dL Albumin 3.9 (3.5-5.0) g/dL Procalcitonin < 0.02 ng/mL Influenza Type A (PCR) NEGATIVE (Negative) Influenza Type B (PCR) NEGATIVE (Negative) RSV RNA Qual (PCR) NEGATIVE (Negative) SARS-CoV-2 RNA (RT-PCR) NEGATIVE (Negative) Independent Interpretation I performed an independent interpretation of an: EKG and Plain X-Ray Interpretation: I have reviewed radiologist reading and I am in agreement with their reading. no PNA EKG with normal sinus rhythm, ventricular rate 68 beats per minute, T-wave inversions in V1, V2, V3. no ST segment elevations or depressions Radiology Impression Discussion of test interpretation with radiology: I have reviewed the radiologist's reading. Radiologist Impression: EXAMINATION: XR CHEST CLINICAL INFORMATION: SOB. COMPARISON: None available. TECHNIQUE: 2 views of the chest were obtained. FINDINGS: No significant abnormality is noted involving the heart, lungs, mediastinum, bony thorax or soft tissues. XR/XR chest 2V IMPRESSION: Unremarkable chest examination. External Record Review External record reviewed: Outpatient record and Prior outpatient labs Prescription Management I considered prescription management with: Antibiotic and Other ( Bronchodilator) Chronic Conditions Patient?s care impacted by: Other ( COPD) Critical Care Time Critical Care Time Critical Care Time: Yes Total Critical Care Time: 35 Attestation: I have personally provided critical care time exclusive of time spent on separately billable procedures. Time includes review of lab data, radiology results, re-evaluation of pulmonary status and monitoring for potential decompensation. Intervention performed as documented. Discharge Plan Discharge Clinical Impression: COPD (chronic obstructive pulmonary disease) Patient Disposition: Home, Self-Care Instructions: COPD (Chronic Obstructive Pulmonary Disease) (DC) Additional Instructions: Your chest x-ray did not show any evidence of pneumonia. You tested negative for COVID, flu, RSV. Continue your prednisone. Recommend stopping the Levaquin. Continue the doxycycline. Use the prescribed nebulizers every 4 hours as needed for shortness of breath and wheezing. Recommend following up with your doctor and pulmonology. If you develop new or worsening symptoms call 911 or come back to the ER for further evaluation. Prescriptions: New ipratropium-albuterol 0.5 mg-3 mg(2.5 mg base)/3 mL solution for nebulization 3 ml inhalation Q4H PRN (Reason: shortness of breath or wheezing) Qty: 90 0RF Rx Instructions: until breathing returns to target peak flow/parameters No Action benztropine 0.5 mg Tablet 0.5 mg PO DAILY lorazepam 0.5 mg tablet 0.5 mg PO BID PRN (Reason: anxiety) Qty: 10 0RF benztropine 0.5 mg Tablet 1 mg PO BEDTIME lamotrigine 200 mg Tablet 200 mg PO BEDTIME duloxetine 60 mg Capsule, Delayed Rel Sprinkle 60 mg PO BID trazodone 100 mg Tablet 100 mg PO BEDTIME quetiapine 25 mg tablet 1 tab PO BEDTIME ibuprofen 800 mg tablet 1 tab PO TID PRN (Reason: Pain) sertraline 25 mg tablet 1 tab PO DAILY aspirin 81 mg Tablet,Delayed Release (Dr/Ec) 81 mg PO DAILY cyanocobalamin (vitamin B-12) [Vitamin B-12] 1,000 mcg tablet extended release 1,000 mcg PO BEDTIME ferrous sulfate 325 mg (65 mg iron) tablet 325 mg PO BEDTIME albuterol sulfate [ProAir HFA] 90 mcg/actuation HFA aerosol inhaler 2 puff inhalation Q4-6H PRN (Reason: shortness of breath or wheezing) Qty: 8.5 0RF risperidone 4 mg tablet 1 tab PO QPM omeprazole 40 mg capsule,delayed release(DR/EC) 40 mg PO DAILY Rx Instructions: After 8 weeks to take it daily prednisone 20 mg Tablet 40 mg PO DAILY 4 Days Qty: 8 0RF benzonatate 100 mg Capsule 200 mg PO TID PRN (Reason: Cough) Qty: 20 0RF azithromycin 500 mg Tablet 500 mg PO Q24H 4 Days Qty: 4 0RF cefuroxime axetil 500 mg tablet 500 mg PO BID Qty: 10 0RF tramadol 50 mg tablet 50 mg PO Q8H PRN (Reason: pain, severe) Qty: 9 0RF acetaminophen [Tylenol Extra Strength] 500 mg tablet 500 mg PO Q6H PRN (Reason: fever or pain) Qty: 14 0RF Referrals: [facility] [place] [facility] [Provider Group] Daljit Irby MD [Primary Care Provider] - Stand Alone Forms: Work/School Release
--- NOTE | 2023-05-31 11:39 | ECG_ITS ---
Test Reason : DISPNEA Blood Pressure : / mmHG Vent. Rate : 068 BPM Atrial Rate : 068 BPM P-R Int : 148 ms QRS Dur : 078 ms QT Int : 444 ms P-R-T Axes : 070 028 037 degrees QTc Int : 472 ms Normal sinus rhythm Nonspecific T wave abnormality Abnormal ECG When compared with ECG of 02-JUL-2022 15:11, T wave inversion now evident in Anterior leads Referred By: Eden Adan Electronically Signed By:JOSHUA CALLAHAN
[2023-05-31 11:54] LABS: MANUAL DIFF FLAG NO
[2023-05-31 11:58] LABS: Basophils Absolute Auto 0.1 X10*3/uL (0.0-0.2); Basophils Percent Auto 0.6 % (0-2); Eosinophils Percent Auto 0.1 % (0-4); Hematocrit 40.5 % (37.0-47.0); Hemoglobin 12.1 g/dl (12.0-16.0); Imm Gran Pct Auto 1.3 % (0.0-0.4); Lymphocytes Absolute Auto 0.8 X10*3/uL (1.2-4.9); Lymphocytes Percent Auto 9.9 % (20-40); Mean Corpuscular HGB Conc 29.9 g/dl (31.0-35.0); Mean Corpuscular Hemoglobin 21.1 pg (27.0-33.0); Mean Corpuscular Volume 70.7 fL (80.0-98.0); Mean Platelet Volume 9.1 fL (9.4-12.3); Monocytes Absolute Auto 0.3 X10*3/uL (0.1-1.2); Monocytes Percent Auto 3.8 % (2-11); Neutrophils Absolute Auto 6.8 x10*3/uL (2.0-8.3); Neutrophils Percent Auto 84.3 % (45-73); Platelet Count 279 X10*3/uL (160-400); Red Blood Count 5.73 X10*6/uL (4.20-5.50); Red Cell Distribution Width 17.9 % (11.0-16.0)
[2023-05-31] MEDS: methylPREDNISolone Sod Succ 125 MG/2 ML VIAL 60 MG IVPUSH (12:01)
[2023-05-31] MEDS: Albuterol/Iprat 2.5/0.5MG 3 ML AMPUL.NEB INHALE (12:02)
[2023-05-31 12:03] VITALS: PULSE 62; RESP 16; O2SAT 90
[2023-05-31 12:14] LABS: B Type Natriuretic Peptide 101 pg/mL (<100)
[2023-05-31 12:17] VITALS: RESP 22; O2SAT 89; O2SAT 92
[2023-05-31 12:19] LABS: Alanine Aminotransferase 8 U/L (0-31); Albumin Level 3.9 g/dL (3.5-5.0); Alkaline Phosphatase 59 U/L (39-117); Anion Gap 11 (12-20); Aspartate Amino Transferase 9 U/L (5-31); Bilirubin Direct 0.2 mg/dL (0.0-0.5); Bilirubin Total 0.3 mg/dL (0.0-1.0); Blood Urea Nitrogen 11 mg/dL (9-16); Calcium 9.1 mg/dL (8.4-10.2); Carbon Dioxide 30 mmol/L (22-29); Chloride 104 mmol/L (96-108); Creatinine Clr Calc Pharmacy 68.6; Estimated Glomerular Filt Rate > 60; Glucose Random 107 mg/dL (60-115); Magnesium 2.1 mg/dL (1.6-2.6); Potassium 4.5 mmol/L (3.3-5.1); Sodium 140 mmol/L (135-145); Total Protein 6.4 g/dL (6.5-8.0)
[2023-05-31 12:29] LABS: Procalcitonin < 0.02 ng/mL
[2023-05-31 12:47] LABS: Influenza A PCR NEGATIVE (Negative); Influenza B PCR NEGATIVE (Negative); Resp Syncy Virus RNA Qual PCR NEGATIVE (Negative); SARS COV2 PCR INHOUSE NEGATIVE (Negative)
--- NOTE | 2023-05-31 12:53 | PC.NURSE ---
alert, speech clear, nad at rest but gets wesley w min activity, does not want to stay in hospital
[2023-05-31 13:07] VITALS: BP 159/76; PULSE 69; RESP 17; O2SAT 93
[2023-05-31 13:24] VITALS: PULSE 88; RESP 22; O2SAT 95
== END 2023-05-31 13:27 | disposition home or self-care (01) ==
PROVIDERS: Physician Assistant; Emergency Provider Emergency Medicine; PCP Internal Medicine
DX: J44.9 Chronic obstructive pulmonary disease, unspecified (principal); R06.02 Shortness of breath; D64.9 Anemia, unspecified; Z20.822 Contact with and (suspected) exposure to COVID-19; Z20.828 Contact with and (suspected) exposure to other viral communicable diseases; F17.210 Nicotine dependence, cigarettes, uncomplicated; Z79.899 Other long term (current) drug therapy; Z79.82 Long term (current) use of aspirin
CPT/HCPCS: 0241U; 36415; 71046; 80048; 80076; 83735; 83880; 84145; 85025; 93005; 94640; 96374; 99284; J2930

== ENCOUNTER 2023-12-30 08:19 | Emergency (ER) | payer MEDICAID, SELFPAY ==
--- NOTE | 2023-12-30 08:27 | ED.GENADULT ---
HPI - General Adult General Chief complaint: General Medical Stated complaint: WEAK,TWITCHY FACE,98% ON RA,SALAS PER EMS Source: patient and EMS Mode of arrival: EMS Limitations: no limitations History of Present Illness HPI narrative: Patient with lip smacking and facial twisting for one month, she denies new psych medication Onset (ago): month(s) Location: face and mouth Severity: moderate Related Data Home Medications ?Medication ?Instructions ?Recorded ?Confirmed benztropine 0.5 mg tablet 1 mg PO BEDTIME 09/01/21 07/03/22 duloxetine 60 mg capsule,delayed 60 mg PO BID 09/01/21 07/03/22 release sprinkle lamotrigine 200 mg tablet 200 mg PO BEDTIME 09/01/21 07/03/22 trazodone 100 mg tablet 100 mg PO BEDTIME 09/01/21 07/03/22 benztropine 0.5 mg tablet 0.5 mg PO DAILY 09/23/21 07/03/22 aspirin 81 mg tablet,delayed 81 mg PO DAILY 02/14/22 07/03/22 release cyanocobalamin (vitamin B-12) 1,000 mcg PO BEDTIME 02/14/22 07/03/22 1,000 mcg tablet,extended release (Vitamin B-12 ER) ferrous sulfate 325 mg (65 mg 325 mg PO BEDTIME 02/14/22 07/03/22 iron) tablet ibuprofen 800 mg tablet 1 tab PO TID PRN Pain 02/14/22 07/03/22 quetiapine 25 mg tablet 1 tab PO BEDTIME 02/14/22 07/03/22 sertraline 25 mg tablet 1 tab PO DAILY 02/14/22 07/03/22 omeprazole 40 mg capsule,delayed 40 mg PO DAILY 07/03/22 07/03/22 release risperidone 4 mg tablet 1 tab PO QPM 07/03/22 07/03/22 Previous Rx's ?Medication ?Instructions ?Recorded lorazepam 0.5 mg tablet 0.5 mg PO BID PRN anxiety #10 tabs 09/30/21 albuterol sulfate 90 mcg/actuation 2 puff inhalation Q4-6H PRN 02/14/22 aerosol inhaler (ProAir HFA) shortness of breath or wheezing #8.5 grams azithromycin 500 mg tablet 500 mg PO Q24H 4 days #4 tabs 07/03/22 benzonatate 100 mg capsule 200 mg (2 x 100 mg) PO TID PRN 07/03/22 Cough #20 caps cefuroxime axetil 500 mg tablet 500 mg PO BID #10 tabs 07/03/22 prednisone 20 mg tablet 40 mg (2 x 20 mg) PO DAILY 4 days 07/03/22 #8 tabs acetaminophen 500 mg tablet 500 mg PO Q6H PRN fever or pain 11/23/22 (Tylenol Extra Strength) #14 tabs tramadol 50 mg tablet 50 mg PO Q8H PRN pain, severe #9 11/23/22 tabs ipratropium 0.5 mg-albuterol 3 mg 3 ml inhalation Q4H PRN shortness 05/31/23 (2.5 mg base)/3 mL nebulization of breath or wheezing #90 mL soln valbenazine 40 mg capsule 40 mg PO DAILY #10 caps 12/30/23 Allergies Allergy/AdvReac Type Severity Reaction Status Date / Time No Known Allergies Allergy Verified 12/30/23 08:40 Review of Systems Review of Systems: Yes all other systems are reviewed and are negative Neurologic: Denies Sensory deficit (Neuro) [facility] Past Medical History Medical History Mood disorder Tobacco use disorder Hx of head injury Anemia Panic anxiety syndrome Pelvic mass Anemia COPD (chronic obstructive pulmonary disease) Surgical History Hx of colonoscopy History of mandibular surgery H/O: hysterectomy Social History Social History Household Members: Spouse Housing: House Do you presently have visiting nurse or other home services: Yes Alcohol intake: unknown Patient Tobacco Use Status: Current everyday Tobacco user Tobacco use type: Cigarette Cigarette Packs Per Day: 1 Cigarettes Per Day: 20.0 Second Hand Smoke Exposure: No Substance Use Type: Marijuana Advance Directives: Yes Advance Directives Information Provided: No Advance Directives on File: No Current occupational status: employed Physical Exam ED Vital Signs: Vital Signs - 24 hr 12/30/23 08:32 Temperature 96.6 F L Pulse Rate 98 Respiratory Rate 19 Blood Pressure 108/74 Pulse Oximetry 98 Oxygen Delivery Method Room Air BMI result Body Mass Index 33.8 Const General: healthy appearing Nutritional Appearance: average body habitus Orientation/consciousness: oriented to person and patient oriented x3 Limitations: no limitations HENMT Other: patient with tardive dyskinesia of face and mouth Head: Yes normal to inspection Ears: external ears normal General nose exam: Normal external nose present Mouth: Normal oral and palatal mucosa present and oropharynx normal Throat: Yes posterior oropharynx normal Eyes General: appearance normal, both eyes and all related structures Neck Neck: Yes normal visual inspection Chest Chest palpation & inspection: normal inspection of the chest Resp Auscultation: clear to auscultation bilaterally Cardio Jugular venous distension: no JVD Rate: regular rate Rhythm: regular rhythm Heart sounds: S1 normal heart sound present and S2 normal heart sound present GI Inspection: Yes normal to inspection Palpation (GI): Soft to palpation, nontender and No hepatosplenomegaly present Auscultation: normal bowel sounds General: Yes no CVA tenderness Back/Spine/Pelvis Back: no CVA tenderness Skin General skin exam: no rashes or lesions noted Neuro General: oriented to person and patient oriented x3 Cranial nerves: Yes CN's II-XII intact bilaterally Motor exam (neuro): 5/5 motor strength present throughout Sensory Exam: No Sensory deficit (Neuro) Extrem General: Yes normal to inspection Psych Appearance: grossly normal Course Reevaluation(s) Reevaluation #1: will place on valbenazine 40mg daily for tardive dyskinesia Medications Administered Discontinued Medications Generic Name Dose Route Start Last Admin Trade Name Freq PRN Reason Stop Dose Admin Diphenhydramine HCl 25 mg 12/30/23 08:34 12/30/23 09:12 Diphenhydramine Hcl 50 Mg/Ml Vial IVPUSH 12/30/23 08:35 25 mg ONCE ONE Administration Medical Decision Making Differential Diagnosis Differential Diagnoses: The differential diagnosis associated with the presentation includes (tardive dyskinesia, allergic reaction, dystonia were all considered) Tests considered The following testing was considered but not selected: CT of head was considered but patient does not have focal findings Chronic Conditions psychiatric illness Social Determinants Patient?s care significantly limited by Social Determinants of Health including: Low income and Alcoholism and drug addiction in family Discharge Plan Discharge Clinical Impression: Drug-induced tardive dystonia, Dyskinesia, tardive Patient Disposition: Home, Self-Care Prescriptions: New valbenazine 40 mg capsule 40 mg PO DAILY Qty: 10 0RF No Action benztropine 0.5 mg Tablet 0.5 mg PO DAILY lorazepam 0.5 mg tablet 0.5 mg PO BID PRN (Reason: anxiety) Qty: 10 0RF benztropine 0.5 mg Tablet 1 mg PO BEDTIME lamotrigine 200 mg Tablet 200 mg PO BEDTIME duloxetine 60 mg Capsule, Delayed Rel Sprinkle 60 mg PO BID trazodone 100 mg Tablet 100 mg PO BEDTIME quetiapine 25 mg tablet 1 tab PO BEDTIME ibuprofen 800 mg tablet 1 tab PO TID PRN (Reason: Pain) sertraline 25 mg tablet 1 tab PO DAILY aspirin 81 mg Tablet,Delayed Release (Dr/Ec) 81 mg PO DAILY cyanocobalamin (vitamin B-12) [Vitamin B-12] 1,000 mcg tablet extended release 1,000 mcg PO BEDTIME ferrous sulfate 325 mg (65 mg iron) tablet 325 mg PO BEDTIME albuterol sulfate [ProAir HFA] 90 mcg/actuation HFA aerosol inhaler 2 puff inhalation Q4-6H PRN (Reason: shortness of breath or wheezing) Qty: 8.5 0RF risperidone 4 mg tablet 1 tab PO QPM omeprazole 40 mg capsule,delayed release(DR/EC) 40 mg PO DAILY Rx Instructions: After 8 weeks to take it daily prednisone 20 mg Tablet 40 mg PO DAILY 4 Days Qty: 8 0RF benzonatate 100 mg Capsule 200 mg PO TID PRN (Reason: Cough) Qty: 20 0RF azithromycin 500 mg Tablet 500 mg PO Q24H 4 Days Qty: 4 0RF cefuroxime axetil 500 mg tablet 500 mg PO BID Qty: 10 0RF tramadol 50 mg tablet 50 mg PO Q8H PRN (Reason: pain, severe) Qty: 9 0RF acetaminophen [Tylenol Extra Strength] 500 mg tablet 500 mg PO Q6H PRN (Reason: fever or pain) Qty: 14 0RF ipratropium-albuterol 0.5 mg-3 mg(2.5 mg base)/3 mL solution for nebulization 3 ml inhalation Q4H PRN (Reason: shortness of breath or wheezing) Qty: 90 0RF Rx Instructions: until breathing returns to target peak flow/parameters Referrals: Daljit Irby MD [Primary Care Provider] - 5 days Print Language: Algerian
[2023-12-30 08:32] VITALS: BP 108/74; BP 140/90; PULSE 110; PULSE 98; RESP 19; TEMP 35.9; O2SAT 98; BMI 33.8
[2023-12-30] MEDS: diphenhydrAMINE HCL 50 MG/ML VIAL 25 MG IVPUSH (09:12)
[2023-12-30 10:35] VITALS: BP 108/74; PULSE 98; RESP 17; TEMP 35.9; O2SAT 98
== END 2023-12-30 10:36 | disposition home or self-care (01) ==
PROVIDERS: Emergency Provider Emergency Medicine; PCP Internal Medicine
DX: G24.01 Drug induced subacute dyskinesia (principal); T50.905A Adverse effect of unspecified drugs, medicaments and biological substances, initial encounter; Y92.9 Unspecified place or not applicable; F39 Unspecified mood [affective] disorder; J44.9 Chronic obstructive pulmonary disease, unspecified
CPT/HCPCS: 96374; 99284; J1200

== ENCOUNTER 2024-02-10 11:18 | Outpatient (REF) | payer MEDICAID, SELFPAY ==
[2024-02-10 13:21] LABS: MANUAL DIFF FLAG NO
[2024-02-10 13:27] LABS: Appearance Urine Clear; Color Urine Yellow; Glucose Urine UA Negative (Negative); Leukocyte Esterase Urine Negative (Negative); Nitrite Urine Negative (Negative); PH 6.5 (5.0-9.0); Urine Blood Negative (Negative); Urine Ketones Negative (Negative); Urine Protein Negative (Neg-Trace)
[2024-02-10 13:42] LABS: Basophils Absolute Auto 0.1 X10*3/uL (0.0-0.2); Basophils Percent Auto 0.5 % (0-2); Eosinophils Percent Auto 0.4 % (0-4); Hematocrit 41.1 % (37.0-47.0); Hemoglobin 12.8 g/dl (12.0-16.0); Imm Gran Abs Auto 0.05 X10*3/uL (0.00-0.03); Imm Gran Pct Auto 0.5 % (0.0-0.4); Lymphocytes Absolute Auto 1.3 X10*3/uL (1.2-4.9); Lymphocytes Percent Auto 12.8 % (20-40); Mean Corpuscular HGB Conc 31.1 g/dl (31.0-35.0); Mean Corpuscular Volume 67.5 fL (80.0-98.0); Mean Platelet Volume 9.6 fL (9.4-12.3); Monocytes Absolute Auto 0.8 X10*3/uL (0.1-1.2); Monocytes Percent Auto 7.2 % (2-11); Neutrophils Absolute Auto 8.3 x10*3/uL (2.0-8.3); Neutrophils Percent Auto 78.6 % (45-73); Platelet Count 318 X10*3/uL (160-400); Red Blood Count 6.09 X10*6/uL (4.20-5.50); Red Cell Distribution Width 17.3 % (11.0-16.0); White Blood Count 10.5 X10*3/uL (4.8-10.8)
[2024-02-10 14:23] LABS: Alanine Aminotransferase 9 U/L (0-31); Albumin Level 4.2 g/dL (3.5-5.0); Alkaline Phosphatase 71 U/L (39-117); Anion Gap 17 (12-20); Aspartate Amino Transferase 15 U/L (5-31); Bilirubin Total 0.4 mg/dL (0.0-1.0); Blood Urea Nitrogen 11 mg/dL (9-16); Calcium 9.6 mg/dL (8.4-10.2); Carbon Dioxide 22 mmol/L (22-29); Chloride 106 mmol/L (96-108); Cholesterol 184 mg/dL (<200); Estimated Glomerular Filt Rate > 60; Glucose Random 90 mg/dL (60-115); HDL Cholesterol 63 mg/dL (>40); Iron 30 mcg/dL (30-160); LDL Cholesterol Calculated 104 mg/dL (<100); Percent Iron Saturation 13 % (15-50); Potassium 4.5 mmol/L (3.3-5.1); Sodium 140 mmol/L (135-145); Total Iron Binding Capacity 230 mcg/dL (228-428); Total Protein 7.2 g/dL (6.5-8.0); Triglycerides 86 mg/dL (<150); Unsaturated Iron Binding 200 ug/dL
[2024-02-10 14:43] LABS: Ferritin 530 ng/mL (10-250); Free T4 (Free Thyroxine) 0.76 ng/dL (0.71-1.85); Thyroid Stimulating Hormone 0.68 uIU/mL (0.32-4.0)
[2024-02-10 14:46] LABS: Folate 4.6 ng/mL (> or = 4.0); Vitamin B12 408 pg/mL (200-900)
== END 2024-02-10 11:19 | disposition home or self-care (01) ==
LOC: HO.MANLDS 11:18
PROVIDERS: Visit Provider Physician Assistant
DX: N39.42 Incontinence without sensory awareness (principal); E53.8 Deficiency of other specified B group vitamins; D50.0 Iron deficiency anemia secondary to blood loss (chronic); E78.2 Mixed hyperlipidemia
CPT/HCPCS: 36415; 80053; 80061; 81003; 82607; 82728; 82746; 83090; 83540; 84439; 84443; 85025

== ENCOUNTER 2024-02-15 01:22 | Inpatient (IN) | payer MEDICAID, SELFPAY ==
[2024-02-15] VITALS (11 sets, daily range): BP systolic 93–183; BP diastolic 58–75; PULSE 93–130; RESP 2–28; TEMP 36.3–36.7; O2SAT 88–97; BMI 31.9
--- NOTE | ~2024-02-15 | XR_ITS ---
EXAMINATION: XR CHEST CLINICAL INFORMATION: Productive cough hypoxia question pneumonia COMPARISON: Prior chest 02/15/2024 TECHNIQUE: Frontal view of the chest was obtained. FINDINGS: No significant abnormality is noted involving the heart, lungs, mediastinum, bony thorax or soft tissues. XR/XR chest 1V IMPRESSION: Unremarkable examination.
--- NOTE | ~2024-02-15 | XR_ITS ---
EXAMINATION: XR CHEST CLINICAL INFORMATION: Shortness of breath. COMPARISON: 05/31/2023. TECHNIQUE: Frontal view of the chest was obtained. FINDINGS: The cardiomediastinal silhouette is within normal limits and stable. There is minimal lower lung field increased markings grossly similar to previous. There is no focal lung consolidation or pleural effusion. The bony structures and soft tissues are unremarkable. XR/XR chest 1V IMPRESSION: No acute cardiopulmonary process. Minimal lower lung field increased markings similar to previous.
--- NOTE | 2024-02-15 01:30 | ECG_ITS ---
Test Reason : SOB Blood Pressure : / mmHG Vent. Rate : 123 BPM Atrial Rate : 123 BPM P-R Int : 150 ms QRS Dur : 086 ms QT Int : 324 ms P-R-T Axes : 064 048 068 degrees QTc Int : 463 ms Sinus tachycardia Otherwise normal ECG When compared with ECG of 31-MAY-2023 12:12, Vent. rate has increased BY 55 BPM T wave inversion no longer evident in Anterior leads Referred By: Rocco Douglass Electronically Signed By:Norman Montoya
--- NOTE | 2024-02-15 01:30 | ED.GENADULT ---
HPI - General Adult General Chief complaint: Dyspnea Stated complaint: diff breathing Time Seen by Provider: 02/15/24 01:30 History of Present Illness HPI narrative: The patient is a 63-year-old woman with a history of COPD who says that she has had worsening shortness of breath for about 4 days. Her symptoms were bad night that she called an ambulance. Paramedics described her as being extremely short of breath with a lot of increased work of breathing. They administered bronchodilator treatments as well as 125 mg of methylprednisolone IV and IV magnesium. She does not know if she has had a fever. She says she has had a cough. Related Data Home Medications ?Medication ?Instructions ?Recorded ?Confirmed benztropine 0.5 mg tablet 1 mg PO BEDTIME 09/01/21 07/03/22 duloxetine 60 mg capsule,delayed 60 mg PO BID 09/01/21 07/03/22 release sprinkle lamotrigine 200 mg tablet 200 mg PO BEDTIME 09/01/21 07/03/22 trazodone 100 mg tablet 100 mg PO BEDTIME 09/01/21 07/03/22 benztropine 0.5 mg tablet 0.5 mg PO DAILY 09/23/21 07/03/22 aspirin 81 mg tablet,delayed 81 mg PO DAILY 02/14/22 07/03/22 release cyanocobalamin (vitamin B-12) 1,000 mcg PO BEDTIME 02/14/22 07/03/22 1,000 mcg tablet,extended release (Vitamin B-12 ER) ferrous sulfate 325 mg (65 mg 325 mg PO BEDTIME 02/14/22 07/03/22 iron) tablet ibuprofen 800 mg tablet 1 tab PO TID PRN Pain 02/14/22 07/03/22 quetiapine 25 mg tablet 1 tab PO BEDTIME 02/14/22 07/03/22 sertraline 25 mg tablet 1 tab PO DAILY 02/14/22 07/03/22 omeprazole 40 mg capsule,delayed 40 mg PO DAILY 07/03/22 07/03/22 release risperidone 4 mg tablet 1 tab PO QPM 07/03/22 07/03/22 Previous Rx's ?Medication ?Instructions ?Recorded lorazepam 0.5 mg tablet 0.5 mg PO BID PRN anxiety #10 tabs 09/30/21 albuterol sulfate 90 mcg/actuation 2 puff inhalation Q4-6H PRN 02/14/22 aerosol inhaler (ProAir HFA) shortness of breath or wheezing #8.5 grams azithromycin 500 mg tablet 500 mg PO Q24H 4 days #4 tabs 07/03/22 benzonatate 100 mg capsule 200 mg (2 x 100 mg) PO TID PRN 07/03/22 Cough #20 caps cefuroxime axetil 500 mg tablet 500 mg PO BID #10 tabs 07/03/22 prednisone 20 mg tablet 40 mg (2 x 20 mg) PO DAILY 4 days 07/03/22 #8 tabs acetaminophen 500 mg tablet 500 mg PO Q6H PRN fever or pain 11/23/22 (Tylenol Extra Strength) #14 tabs tramadol 50 mg tablet 50 mg PO Q8H PRN pain, severe #9 11/23/22 tabs ipratropium 0.5 mg-albuterol 3 mg 3 ml inhalation Q4H PRN shortness 05/31/23 (2.5 mg base)/3 mL nebulization of breath or wheezing #90 mL soln valbenazine 40 mg capsule 40 mg PO DAILY #10 caps 12/30/23 Allergies Allergy/AdvReac Type Severity Reaction Status Date / Time No Known Allergies Allergy Verified 02/15/24 01:42 Review of Systems Review of Systems: Yes all other systems are reviewed and are negative PMFSH Past Medical History Medical History Mood disorder Tobacco use disorder Hx of head injury Anemia Panic anxiety syndrome Pelvic mass Anemia COPD (chronic obstructive pulmonary disease) Surgical History Hx of colonoscopy History of mandibular surgery H/O: hysterectomy Social History Social History Household Members: Spouse Housing: House Do you presently have visiting nurse or other home services: Yes Alcohol intake: unknown Patient Tobacco Use Status: Current everyday Tobacco user Tobacco use type: Cigarette Cigarette Packs Per Day: 1 Cigarettes Per Day: 20.0 Smoked in Last 30 Days: Yes Second Hand Smoke Exposure: No Use of substances other than those prescribed or required for medical reasons: Yes Substance Use Type: Marijuana Substance Use Frequency: Occasionally Last Used Substance: Hours (ago) Advance Directives: No Advance Directives Information Provided: Yes Do you have a plan to hurt others: No Plan Patient : No Current occupational status: employed Physical Exam ED Vital Signs: Vital Signs - 24 hr 02/15/24 01:39 02/15/24 01:49 02/15/24 02:03 Temperature 97.3 F Pulse Rate 124 H 120 H 120 H Respiratory Rate 28 H 26 H 26 H Blood Pressure 112/64 Pulse Oximetry 96 Oxygen Delivery Method Room Air Oxygen Flow Rate 02/15/24 02:18 02/15/24 04:39 Temperature 98.0 F Pulse Rate 125 H 109 H Respiratory Rate 24 H 20 Blood Pressure 93/67 183/63 H Pulse Oximetry 97 90 L Oxygen Delivery Method Aerosol Mask Nasal Cannula Oxygen Flow Rate 5 BMI result Body Mass Index 31.9 Const Other: The patient is awake and alert and seemed short of breath. HENMT Other: Face is symmetrical. Mucous membranes moist. Eyes Other: Pupils are round equal, conjunctivae clear Neck Other: No JVD Resp Other: Mild increased work of breathing. Inspiratory and expiratory wheezes bilaterally. Cardio Rate: tachycardic Rhythm: regular rhythm Heart sounds: S1 normal heart sound present and S2 normal heart sound present GI Other: Abdomen is soft and nontender Skin Other: Skin is dry and unremarkable Neuro Other: The patient is awake and alert with a normal mental status Extrem Other: No calf swelling or tenderness, no peripheral edema Medications Administered Generic Name Dose Route Start Last Admin Trade Name Freq PRN Reason Stop Dose Admin Albuterol/Ipratropium 3 ml 02/15/24 08:00 02/15/24 07:50 Albuterol/Iprat 2.5/0.5mg 3 Ml Ampul.Neb INHALE 3 ml RQ4H WHILE AWAKE JAHAIRA Administration Enoxaparin Sodium 40 mg 02/15/24 06:00 02/15/24 06:22 Enoxaparin Sodium 40 Mg/0.4 Ml Syringe SUBCUT 40 mg Q24H JAHAIRA Administration Methylprednisolone Sodium Succinate 40 mg 02/15/24 06:00 02/15/24 06:22 Methylprednisolone Sod Succ 40 Mg/Ml Vial IVPUSH 40 mg Q12H JAHAIRA Administration Nicotine 14 mg 02/15/24 06:00 02/15/24 06:22 Nicotine 14 Mg Patch.Td24 TRANSDERMA Not Given DAILY JAHAIRA Sodium Chloride 3 ml 02/15/24 08:00 02/15/24 08:08 0.9 % Sodium Chloride Flush 3 Ml Syringe IVFLUSH 3 ml QSHIFT JAHAIRA Administration Discontinued Medications Generic Name Dose Route Start Last Admin Trade Name Gonzalo PRN Reason Stop Dose Admin Albuterol Sulfate 7.5 mg/ 10 mg 02/15/24 01:35 02/15/24 01:47 Albuterol Sulfate 2.5 mg INHALE 02/15/24 01:36 10 mg ONCE ONE Administration Albuterol Sulfate 7.5 mg/ 0 mg 02/15/24 01:53 02/15/24 02:02 Albuterol/Ipratropium 3 ml INHALE 02/15/24 01:54 10 each ONCE ONE Administration Sodium Chloride 1,000 mls @ 999 mls/hr 02/15/24 01:30 02/15/24 04:49 Ns IV 02/15/24 02:30 Infused .Q1H1M JAHAIRA Infusion Azithromycin 500 mg/ Sodium 250 mls @ 125 mls/hr 02/15/24 03:36 02/15/24 06:14 Chloride IV 02/15/24 05:35 Infused ONCE ONE Infusion Lorazepam 1 mg 02/15/24 02:45 02/15/24 02:58 Lorazepam 1 Mg Tablet PO 02/15/24 02:46 1 mg ONCE ONE Administration Medical Decision Making Medical Decision Making MDM Narrative: The patient presented with acute shortness of breath consistent with an acute COPD exacerbation. She would received methylprednisolone and magnesium from paramedics as well as bronchodilators. She was placed on oxygen here and given additional bronchodilator treatment as well as IV azithromycin. Clinically I do not believe the patient is septic. I think this is primarily a COPD exacerbation. Was observed and had improvement in her work of breathing. She will be admitted to the hospitalist service. Lab Data 02/15/24 02:07 02/15/24 02:06 Labs: Lab Results 02/15/24 02/15/24 02/15/24 Range/Units 02:02 02:06 02:07 WBC 14.2 H (4.8-10.8) X10*3/uL RBC 5.77 H (4.20-5.50) X10*6/uL Hgb 12.1 (12.0-16.0) g/dl Hct 38.3 (37.0-47.0) % MCV 66.4 L (80.0-98.0) fL MCH 21.0 L (27.0-33.0) pg MCHC 31.6 (31.0-35.0) g/dl RDW 15.5 (11.0-16.0) % Plt Count 366 (160-400) X10*3/uL MPV 9.3 L (9.4-12.3) fL Immature Gran % (Auto) 0.6 H (0.0-0.4) % Neut % (Auto) 73.8 H (45-73) % Lymph % (Auto) 18.2 L (20-40) % [place] % (Auto) 7.1 (2-11) % Eos % (Auto) 0.1 (0-4) % Baso % (Auto) 0.2 (0-2) % Lymph # (Auto) 2.6 (1.2-4.9) X10*3/uL [place] # (Auto) 1.0 (0.1-1.2) X10*3/uL Eos # (Auto) 0.0 (0.0-0.4) X10*3/uL Baso # (Auto) 0.0 (0.0-0.2) X10*3/uL Abs Immat Gran (auto) 0.09 H (0.00-0.03) X10*3/uL Absolute Neuts (auto) 10.5 H (2.0-8.3) x10*3/uL Absolute Nucleated RBC 0.000 (0.0-0.012) X10*3/uL Nucleated RBC % (auto) 0.0 (0.0-0.2) /100WBC PT 11.5 (11.1-13.3) SEC INR 0.9 (0.9-1.1) VBG pH 7.38 (7.32-7.43) VBG pCO2 43 mmHg VBG pO2 50 mmHg VBG HCO3 25 (22-26) mmol/L VBG O2 Saturation 78.0 % VBG Base Excess 0.7 mmol/L Sodium 140 (135-145) mmol/L Potassium 3.5 D (3.3-5.1) mmol/L Chloride 106 (96-108) mmol/L Carbon Dioxide 25 (22-29) mmol/L Anion Gap 13 (12-20) BUN 14 (9-16) mg/dL Creatinine 0.79 (0.5-1.4) mg/dL Estim Creat Clear Calc 74.6 Estimated GFR > 60 Random Glucose 125 H (60-115) mg/dL Lactic Acid 1.1 (0.5-2.0) mmol/L Calcium 9.5 (8.4-10.2) mg/dL Magnesium 3.1 H (1.6-2.6) mg/dL Total Bilirubin 0.3 (0.0-1.0) mg/dL Direct Bilirubin 0.1 (0.0-0.5) mg/dL AST 15 (5-31) U/L ALT 11 (0-31) U/L Alkaline Phosphatase 66 (39-117) U/L Troponin I High Sens 18.8 H (<3.5-17.0) ng/L C-Reactive Protein 1.26 H (< or = 0.50) mg/dL B-Natriuretic Peptide 60 (<100) pg/mL Total Protein 7.2 (6.5-8.0) g/dL Albumin 4.1 (3.5-5.0) g/dL Ethyl Alcohol < 10 mg/dL Influenza Type A (PCR) (Negative) Influenza Type B (PCR) (Negative) RSV RNA Qual (PCR) (Negative) SARS-CoV-2 RNA (RT-PCR) (Negative) 02/15/24 Range/Units 02:18 WBC (4.8-10.8) X10*3/uL RBC (4.20-5.50) X10*6/uL Hgb (12.0-16.0) g/dl Hct (37.0-47.0) % MCV (80.0-98.0) fL MCH (27.0-33.0) pg MCHC (31.0-35.0) g/dl RDW (11.0-16.0) % Plt Count (160-400) X10*3/uL MPV (9.4-12.3) fL Immature Gran % (Auto) (0.0-0.4) % Neut % (Auto) (45-73) % Lymph % (Auto) (20-40) % [place] % (Auto) (2-11) % Eos % (Auto) (0-4) % Baso % (Auto) (0-2) % Lymph # (Auto) (1.2-4.9) X10*3/uL [place] # (Auto) (0.1-1.2) X10*3/uL Eos # (Auto) (0.0-0.4) X10*3/uL Baso # (Auto) (0.0-0.2) X10*3/uL Abs Immat Gran (auto) (0.00-0.03) X10*3/uL Absolute Neuts (auto) (2.0-8.3) x10*3/uL Absolute Nucleated RBC (0.0-0.012) X10*3/uL Nucleated RBC % (auto) (0.0-0.2) /100WBC PT (11.1-13.3) SEC INR (0.9-1.1) VBG pH (7.32-7.43) VBG pCO2 mmHg VBG pO2 mmHg VBG HCO3 (22-26) mmol/L VBG O2 Saturation % VBG Base Excess mmol/L Sodium (135-145) mmol/L Potassium (3.3-5.1) mmol/L Chloride (96-108) mmol/L Carbon Dioxide (22-29) mmol/L Anion Gap (12-20) BUN (9-16) mg/dL Creatinine (0.5-1.4) mg/dL Estim Creat Clear Calc Estimated GFR Random Glucose (60-115) mg/dL Lactic Acid (0.5-2.0) mmol/L Calcium (8.4-10.2) mg/dL Magnesium (1.6-2.6) mg/dL Total Bilirubin (0.0-1.0) mg/dL Direct Bilirubin (0.0-0.5) mg/dL AST (5-31) U/L ALT (0-31) U/L Alkaline Phosphatase (39-117) U/L Troponin I High Sens (<3.5-17.0) ng/L C-Reactive Protein (< or = 0.50) mg/dL B-Natriuretic Peptide (<100) pg/mL Total Protein (6.5-8.0) g/dL Albumin (3.5-5.0) g/dL Ethyl Alcohol mg/dL Influenza Type A (PCR) NEGATIVE (Negative) Influenza Type B (PCR) NEGATIVE (Negative) RSV RNA Qual (PCR) NEGATIVE (Negative) SARS-CoV-2 RNA (RT-PCR) NEGATIVE (Negative) Discharge Plan Discharge Clinical Impression: Acute exacerbation of COPD with asthma Patient Disposition: Admitted As Inpatient
[2024-02-15] MEDS: 0.9 % Sodium Chloride 1,000 ML 999 ML IV (01:43)
[2024-02-15] MEDS: Albuterol Sulfate 7.5 MG, Albuterol Sulfate (0.083%) 2.5 MG 10 MG INHALE (01:47)
[2024-02-15] MEDS: Albuterol Sulfate 7.5 MG, Albuterol/Iprat 2.5/0.5MG 3 ML 3 ML INHALE (02:02)
[2024-02-15 02:08] LABS: MANUAL DIFF FLAG NO
[2024-02-15 02:10] LABS: Basophils Percent Auto 0.2 % (0-2); Eosinophils Percent Auto 0.1 % (0-4); Hematocrit 38.3 % (37.0-47.0); Hemoglobin 12.1 g/dl (12.0-16.0); Imm Gran Abs Auto 0.09 X10*3/uL (0.00-0.03); Imm Gran Pct Auto 0.6 % (0.0-0.4); Lymphocytes Absolute Auto 2.6 X10*3/uL (1.2-4.9); Lymphocytes Percent Auto 18.2 % (20-40); Mean Corpuscular HGB Conc 31.6 g/dl (31.0-35.0); Mean Corpuscular Volume 66.4 fL (80.0-98.0); Mean Platelet Volume 9.3 fL (9.4-12.3); Monocytes Percent Auto 7.1 % (2-11); Neutrophils Absolute Auto 10.5 x10*3/uL (2.0-8.3); Neutrophils Percent Auto 73.8 % (45-73); Platelet Count 366 X10*3/uL (160-400); Red Blood Count 5.77 X10*6/uL (4.20-5.50); Red Cell Distribution Width 15.5 % (11.0-16.0); White Blood Count 14.2 X10*3/uL (4.8-10.8)
[2024-02-15 02:13] LABS: Venous Blood Gas Refer to POC result
[2024-02-15 02:15] LABS: INTERNATIONAL NORM RATIO 0.9 (0.9-1.1); Prothrombin Time 11.5 SEC (11.1-13.3)
[2024-02-15 02:15] LABS: VBG Base Excess 0.7 mmol/L; VBG HCO3 25 mmol/L (22-26); VBG pCO2 43 mmHg; VBG pH 7.38 (7.32-7.43); VBG pO2 50 mmHg
[2024-02-15 02:21] LABS: Lactic Acid 1.1 mmol/L (0.5-2.0)
[2024-02-15 02:25] LABS: Ethanol < 10 mg/dL
[2024-02-15 02:26] LABS: Alanine Aminotransferase 11 U/L (0-31); Albumin Level 4.1 g/dL (3.5-5.0); Alkaline Phosphatase 66 U/L (39-117); Anion Gap 13 (12-20); Aspartate Amino Transferase 15 U/L (5-31); Bilirubin Direct 0.1 mg/dL (0.0-0.5); Bilirubin Total 0.3 mg/dL (0.0-1.0); Blood Urea Nitrogen 14 mg/dL (9-16); C Reactive Protein 1.26 mg/dL (< or = 0.50); Calcium 9.5 mg/dL (8.4-10.2); Carbon Dioxide 25 mmol/L (22-29); Chloride 106 mmol/L (96-108); Creatinine Clr Calc Pharmacy 74.6; Estimated Glomerular Filt Rate > 60; Glucose Random 125 mg/dL (60-115); Magnesium 3.1 mg/dL (1.6-2.6); Potassium 3.5 mmol/L (3.3-5.1); Sodium 140 mmol/L (135-145); Total Protein 7.2 g/dL (6.5-8.0)
[2024-02-15 02:31] LABS: Troponin-I High Sensitivity 18.8 ng/L (<3.5-17.0)
[2024-02-15 02:50] LABS: B Type Natriuretic Peptide 60 pg/mL (<100)
[2024-02-15] MEDS: LORazepam 1 MG TABLET PO (02:58)
[2024-02-15 03:07] LABS: Influenza A PCR NEGATIVE (Negative); Influenza B PCR NEGATIVE (Negative); Resp Syncy Virus RNA Qual PCR NEGATIVE (Negative); SARS COV2 PCR INHOUSE NEGATIVE (Negative)
--- NOTE | 2024-02-15 03:13 | PC.NURSE ---
pt breathing a little easier, denies O2 use at home. on 5L 90%. pt reports feeling very anxious, pt medicated per MAR
[2024-02-15] MEDS: Azithromycin 500 MG in 0.9 % Sodium Chloride 250 ML 125 MG IV (03:52)
--- NOTE | 2024-02-15 04:40 | PC.NURSE ---
20g R forearm, 20G LAC placed by EMS flushes but is very positional for IV pump
--- NOTE | 2024-02-15 05:14 | PM.IMHP ---
History of Present Illness Date of Service: 02/15/24 Chief Complaint: Dyspnea This is a 63-year-old female with pertinent history of tobacco use disorder, COPD not on home oxygen, mood disorder, gastroesophageal reflux disease who presents to the emergency department for evaluation of dyspnea. Patient states her symptoms started 5 days prior to presentation. She has been having dyspnea which is worse with exertion. Also has associated wheezing and productive cough. No orthopnea or PND. Her symptoms have been progressive and without any relief. She continues to smoke cigarettes. No fever, chills, chest discomfort, palpitations, abdominal pain, changes in urinary or bowel habits. In the emergency department, patient requiring supplemental oxygen and continues to wheeze despite multiple DuoNeb treatments. Review of Systems Constitutional: Constitutional: Reports fatigue, Reports malaise and Reports weakness Cardiovascular: Cardiovascular: Reports dyspnea on exertion Respiratory: Respiratory: Reports cough, Reports dyspnea on exertion and Reports wheezing Gastrointestinal: Gastrointestinal: Reports no additional gastrointestinal complaints Genitourinary: Genitourinary: Reports no additional female genitourinary complaints Neurologic: Reports weakness Endocrine: Endocrine: Reports fatigue Allergic/Immunologic: Allergic/Immunologic: Reports wheezing [facility] Medical History Mood disorder Tobacco use disorder Hx of head injury Anemia Panic anxiety syndrome Pelvic mass Anemia COPD (chronic obstructive pulmonary disease) Pertinent family history: No family history of early CAD Surgical History Hx of colonoscopy History of mandibular surgery H/O: hysterectomy Social History Household Members: Spouse Housing: House Do you presently have visiting nurse or other home services: Yes Alcohol intake: unknown Patient Tobacco Use Status: Current everyday Tobacco user Tobacco use type: Cigarette Cigarette Packs Per Day: 1 Cigarettes Per Day: 20.0 Smoked in Last 30 Days: Yes Second Hand Smoke Exposure: No Use of substances other than those prescribed or required for medical reasons: Yes Substance Use Type: Marijuana Substance Use Frequency: Occasionally Last Used Substance: Hours (ago) Advance Directives: No Advance Directives Information Provided: Yes Do you have a plan to hurt others: No Plan Patient : No Current occupational status: employed Meds Allergies Allergy/AdvReac Type Severity Reaction Status Date / Time No Known Allergies Allergy Verified 02/15/24 01:42 Active Medications: Current Medications Azithromycin 500 mg/ Sodium (Chloride) 250 mls @ 125 mls/hr IV ONCE ONE Stop: 02/15/24 05:35 Last Admin: 02/15/24 03:52 Dose: 125 mls/hr Home Medications ?Medication ?Instructions ?Recorded ?Confirmed ?Last Taken ?Type benztropine 0.5 mg tablet 1 mg PO BEDTIME 09/01/21 07/03/22 07/01/22 History duloxetine 60 mg capsule,delayed 60 mg PO BID 09/01/21 07/03/22 07/01/22 History release sprinkle lamotrigine 200 mg tablet 200 mg PO BEDTIME 09/01/21 07/03/22 07/01/22 History trazodone 100 mg tablet 100 mg PO BEDTIME 09/01/21 07/03/22 07/01/22 History benztropine 0.5 mg tablet 0.5 mg PO DAILY 09/23/21 07/03/22 07/01/22 History aspirin 81 mg tablet,delayed 81 mg PO DAILY 02/14/22 07/03/22 07/01/22 History release cyanocobalamin (vitamin B-12) 1,000 mcg PO BEDTIME 02/14/22 07/03/22 07/01/22 History 1,000 mcg tablet,extended release (Vitamin B-12 ER) ferrous sulfate 325 mg (65 mg 325 mg PO BEDTIME 02/14/22 07/03/22 07/01/22 History iron) tablet ibuprofen 800 mg tablet 1 tab PO TID PRN Pain 02/14/22 07/03/22 07/01/22 History quetiapine 25 mg tablet 1 tab PO BEDTIME 02/14/22 07/03/22 07/01/22 History sertraline 25 mg tablet 1 tab PO DAILY 02/14/22 07/03/22 07/01/22 History omeprazole 40 mg capsule,delayed 40 mg PO DAILY 07/03/22 07/03/22 07/01/22 History release risperidone 4 mg tablet 1 tab PO QPM 07/03/22 07/03/22 07/01/22 History Physical Exam Vital Signs and Narrative: Vital Signs: Last Vital Signs Temp 98.0 F 02/15/24 02:18 Pulse 109 H 02/15/24 04:39 Resp 20 02/15/24 04:39 BP 183/63 H 02/15/24 04:39 Pulse Ox 90 L 02/15/24 04:39 O2 Del Method Nasal Cannula 02/15/24 04:39 O2 Flow Rate 5 02/15/24 04:39 BMI result Body Mass Index 31.9 Middle-aged female lying in bed in mild distress on supplemental oxygen Neck supple, no JVD Tachycardic with regular rhythm, S1-S2 heard Bilateral wheezing with tachypnea Abdomen soft nontender, no guarding, no rigidity Patient is awake, alert and oriented to self, place, time and person ; no focal motor deficit Psych: Normal mood No pedal edema Results Labs 02/15/24 02:07 02/15/24 02:06 Labs: Laboratory Results - last 24 hr 02/15/24 02/15/24 02/15/24 02:02 02:06 02:07 MCV 66.4 L MCH 21.0 L MCHC 31.6 RDW 15.5 Plt Count 366 MPV 9.3 L Immature Gran % (Auto) 0.6 H Neut % (Auto) 73.8 H Lymph % (Auto) 18.2 L [place] % (Auto) 7.1 Eos % (Auto) 0.1 Baso % (Auto) 0.2 Lymph # (Auto) 2.6 [place] # (Auto) 1.0 Eos # (Auto) 0.0 Baso # (Auto) 0.0 Abs Immat Gran (auto) 0.09 H Absolute Neuts (auto) 10.5 H Absolute Nucleated RBC 0.000 Nucleated RBC % (auto) 0.0 PT 11.5 INR 0.9 VBG pH 7.38 VBG pCO2 43 VBG pO2 50 VBG HCO3 25 VBG O2 Saturation 78.0 VBG Base Excess 0.7 Anion Gap 13 Estim Creat Clear Calc 74.6 Estimated GFR > 60 Random Glucose 125 H Lactic Acid 1.1 Calcium 9.5 Magnesium 3.1 H Total Bilirubin 0.3 Direct Bilirubin 0.1 AST 15 ALT 11 Alkaline Phosphatase 66 Troponin I High Sens 18.8 H C-Reactive Protein 1.26 H B-Natriuretic Peptide 60 Total Protein 7.2 Albumin 4.1 Ethyl Alcohol < 10 Influenza Type A (PCR) Influenza Type B (PCR) RSV RNA Qual (PCR) SARS-CoV-2 RNA (RT-PCR) 02/15/24 02:18 MCV MCH MCHC RDW Plt Count MPV Immature Gran % (Auto) Neut % (Auto) Lymph % (Auto) [place] % (Auto) Eos % (Auto) Baso % (Auto) Lymph # (Auto) [place] # (Auto) Eos # (Auto) Baso # (Auto) Abs Immat Gran (auto) Absolute Neuts (auto) Absolute Nucleated RBC Nucleated RBC % (auto) PT INR VBG pH VBG pCO2 VBG pO2 VBG HCO3 VBG O2 Saturation VBG Base Excess Anion Gap Estim Creat Clear Calc Estimated GFR Random Glucose Lactic Acid Calcium Magnesium Total Bilirubin Direct Bilirubin AST ALT Alkaline Phosphatase Troponin I High Sens C-Reactive Protein B-Natriuretic Peptide Total Protein Albumin Ethyl Alcohol Influenza Type A (PCR) NEGATIVE Influenza Type B (PCR) NEGATIVE RSV RNA Qual (PCR) NEGATIVE SARS-CoV-2 RNA (RT-PCR) NEGATIVE Imaging Radiologist's Impressions: Impressions Chest X-Ray 02/15/24 02:45 IMPRESSION: No acute cardiopulmonary process. Minimal lower lung field increased markings similar to previous. Assessment and Plan (1) COPD exacerbation: Status: Acute (2) Hypoxia: Status: Acute Plan This is a 63-year-old female with pertinent history of tobacco use disorder, COPD not on home oxygen, mood disorder, gastroesophageal reflux disease who presents to the emergency department for evaluation of dyspnea. #. Acute hypoxic respiratory failure due to acute exacerbation of COPD with sepsis: Will admit patient with supplemental oxygen. Initiating IV steroids. Scheduled and p.r.n. DuoNebs. Continue home inhaler. Also initiating azithromycin for pleiotropic effect #. Mood disorder: Continue home mood stabilizers #. Tobacco use disorder: Counseled regarding cessation. Nicotine patch while in the hospital #. Gastroesophageal reflux disease: On PPI #. Elevated troponin, likely type 2 in the setting of increased demand: Patient without chest pain. Trend troponin Med rec pending DVT prophylaxis: Lovenox Full code Admit as inpatient and will require two night minimum hospital stay for supplemental oxygen, IV steroids (as above), which is not possible in a lesser acute setting. Quality Stroke Does the patient have a stroke diagnosis?: No VTE Prior VTE?: No VTE Risk Level:: Medical - moderate - high VTE Device Contraindication: Treatment Not Indicated VTE Drug Contraindication: N/A - Med Ordered
[2024-02-15] MEDS: Enoxaparin Sodium 40 MG/0.4 ML SYRINGE SUBCUT (06:22)
[2024-02-15] MEDS: methylPREDNISolone Sod Succ 40 MG/ML VIAL IVPUSH ×2 (06:22→18:05)
--- NOTE | 2024-02-15 07:35 | P.PNIM_ITS ---
Subjective Subjective Date of Service: 02/15/24 Interval History: Seen in follow-up for acute hypoxemic respiratory failure and sepsis due to COPD exacerbation Interval history: Reports feeling better slightly. Still with productive cough and wheezing. Denies shortness breath or chest pain. On 3 L supplemental O2, afebrile Review of Systems Review of Systems: Yes all other systems are reviewed and are negative Physical Exam 2 Vital Signs: Vital Signs: Last Vital Signs Temp 97.9 F 02/15/24 05:44 Pulse 105 H 02/15/24 05:44 Resp 22 H 02/15/24 05:44 BP 106/58 L 02/15/24 05:44 Pulse Ox 96 02/15/24 05:44 O2 Del Method Nasal Cannula 02/15/24 05:44 O2 Flow Rate 2 02/15/24 05:44 BMI result Body Mass Index 31.9 Constitutional - Awake and Alert, No apparent distress Eyes - PERRLA, EOMI Cardiovascular - S1S2, RRR, No edema Respiratory - Normal lung expansion, Normal respiratory effort, No respiratory distress on 3 L supplemental O2, expiratory wheezing bilateral lower lobes Gastrointestinal - NT / ND; +BS; No rebound or guarding Extremities - no calf tenderness bilaterally, no swelling Skin - Warm/Dry Neurological - Alert & oriented x3 Psychological - Appropriate affect Objective Data Active Medications Acetaminophen (Acetaminophen 325 Mg Tablet) 650 mg PO Q6H PRN PRN Reason: Pain, Mild (Pain Scale 1-3) Albuterol/Ipratropium (Albuterol/Iprat 2.5/0.5mg 3 Ml Ampul.Neb) 3 ml INHALE RQ4H WHILE AWAKE [facility] Albuterol/Ipratropium (Albuterol/Iprat 2.5/0.5mg 3 Ml Ampul.Neb) 3 ml INHALE Q4H PRN PRN Reason: Wheezing Azithromycin (Azithromycin 500 Mg Tablet) 500 mg PO Q24H JAHAIRA Enoxaparin Sodium (Enoxaparin Sodium 40 Mg/0.4 Ml Syringe) 40 mg SUBCUT Q24H [facility] Last Admin: 02/15/24 06:22 Dose: 40 mg Documented By: NAE Melatonin (Melatonin 3 Mg Tablet) 6 mg PO BEDTIME PRN PRN Reason: Insomnia Methylprednisolone Sodium Succinate (Methylprednisolone Sod Succ 40 Mg/Ml Vial) 40 mg IVPUSH Q12H [facility] Last Admin: 02/15/24 06:22 Dose: 40 mg Documented By: NAE Nicotine (Nicotine 14 Mg Patch.Td24) 14 mg TRANSDERMA DAILY [facility] Last Admin: 02/15/24 06:22 Dose: Not Given Documented By: NAE Non-Admin Reason: Patient Refused Ondansetron HCl (Ondansetron Hcl 4 Mg/2 Ml Vial) 4 mg IVPUSH Q8H PRN PRN Reason: Nausea and Vomiting Sodium Chloride (0.9 % Sodium Chloride Flush 3 Ml Syringe) 3 ml IVFLUSH QSHIFT [facility] Labs 02/15/24 02:07 02/15/24 02:06 Labs: Laboratory Results - last 24 hr 02/15/24 02/15/24 02/15/24 02:02 02:06 02:07 MCV 66.4 L MCH 21.0 L MCHC 31.6 RDW 15.5 Plt Count 366 MPV 9.3 L Immature Gran % (Auto) 0.6 H Neut % (Auto) 73.8 H Lymph % (Auto) 18.2 L [place] % (Auto) 7.1 Eos % (Auto) 0.1 Baso % (Auto) 0.2 Lymph # (Auto) 2.6 [place] # (Auto) 1.0 Eos # (Auto) 0.0 Baso # (Auto) 0.0 Abs Immat Gran (auto) 0.09 H Absolute Neuts (auto) 10.5 H Absolute Nucleated RBC 0.000 Nucleated RBC % (auto) 0.0 PT 11.5 INR 0.9 VBG pH 7.38 VBG pCO2 43 VBG pO2 50 VBG HCO3 25 VBG O2 Saturation 78.0 VBG Base Excess 0.7 Anion Gap 13 Estim Creat Clear Calc 74.6 Estimated GFR > 60 Random Glucose 125 H Lactic Acid 1.1 Calcium 9.5 Magnesium 3.1 H Total Bilirubin 0.3 Direct Bilirubin 0.1 AST 15 ALT 11 Alkaline Phosphatase 66 Troponin I High Sens 18.8 H C-Reactive Protein 1.26 H B-Natriuretic Peptide 60 Total Protein 7.2 Albumin 4.1 Ethyl Alcohol < 10 Influenza Type A (PCR) Influenza Type B (PCR) RSV RNA Qual (PCR) SARS-CoV-2 RNA (RT-PCR) 02/15/24 02:18 MCV MCH MCHC RDW Plt Count MPV Immature Gran % (Auto) Neut % (Auto) Lymph % (Auto) [place] % (Auto) Eos % (Auto) Baso % (Auto) Lymph # (Auto) [place] # (Auto) Eos # (Auto) Baso # (Auto) Abs Immat Gran (auto) Absolute Neuts (auto) Absolute Nucleated RBC Nucleated RBC % (auto) PT INR VBG pH VBG pCO2 VBG pO2 VBG HCO3 VBG O2 Saturation VBG Base Excess Anion Gap Estim Creat Clear Calc Estimated GFR Random Glucose Lactic Acid Calcium Magnesium Total Bilirubin Direct Bilirubin AST ALT Alkaline Phosphatase Troponin I High Sens C-Reactive Protein B-Natriuretic Peptide Total Protein Albumin Ethyl Alcohol Influenza Type A (PCR) NEGATIVE Influenza Type B (PCR) NEGATIVE RSV RNA Qual (PCR) NEGATIVE SARS-CoV-2 RNA (RT-PCR) NEGATIVE Assessment and Plan (1) Hypoxia: Status: Acute (2) COPD exacerbation: Status: Acute (3) Sepsis: Status: Acute Plan 63-year-old female with pertinent history of tobacco use disorder, COPD not on home oxygen, mood disorder, gastroesophageal reflux disease admitted for further management of acute hypoxemic respiratory failure and sepsis due to COPD exacerbation #Acute hypoxic respiratory failure due to acute exacerbation of COPD with sepsis -IV methylprednisolone 40 mg b.i.d. -DuoNebs q.4h while awake/p.r.n. -IV azithromycin for pleiotropic effect (initiated 02/14) -Check RPP -continue supplemental O2 to maintain oximetry 90-92%, wean as tolerated #Mood disorder -continue home meds #Tobacco use disorder -Counseled regarding cessation. Nicotine patch while in the hospital #Gastroesophageal reflux disease -continue PPI # elevated troponins-likely type 2 in setting of increased demand due to hypoxia -tropes flat 18.8 --> 20.6 -EKG without acute ischemic changes, no chest pain levated troponin DVT prophylaxis: Lovenox Full code Patient requires ongoing inpatient stay due to acute hypoxemic respiratory failure and sepsis due to COPD exacerbation requiring IV steroids, antibiotics, and scheduled nebs with close monitoring of respiratory status to prevent and monitor for decompensation Quality Stroke Does the patient have a stroke diagnosis?: No VTE Prior VTE?: No VTE Risk Level:: Medical - moderate - high VTE Device Contraindication: Treatment Not Indicated VTE Drug Contraindication: N/A - Med Ordered
[2024-02-15] MEDS: Albuterol/Iprat 2.5/0.5MG 3 ML AMPUL.NEB INHALE ×3 (07:50→19:18)
[2024-02-15] MEDS: 0.9 % Sodium Chloride Flush 3 ML SYRINGE IVFLUSH ×2 (08:08→18:04)
[2024-02-15 09:50] LABS: Troponin-I High Sensitivity 20.6 ng/L (<3.5-17.0)
--- NOTE | 2024-02-15 09:56 | PHA.MEDREC ---
Pharmacy Consult ? Medication Reconciliation Pharmacy has completed the medication reconciliation. spoke with patient to confirm medications. She no longer takes benztropine, vitamin B12, risperidone, sertraline, tramadol, trazodone, and oxybutynin. She reports that she never picked up the Ingrezza because [facility] did not cover it. She is currently on day 4 of the prednisone taper and last took it yesterday. She also took duloxetine, lamotrigine, and ibuprofen yesterday as well.
--- NOTE | 2024-02-15 12:59 | MHC.EDTECH ---
Patient given lunch
[2024-02-15] MEDS: LORazepam 0.5 MG TABLET PO (14:00)
--- NOTE | 2024-02-15 18:39 | MHC.EDTECH ---
patient given dinner tray
--- NOTE | 2024-02-15 19:45 | PC.NURSE ---
This RN assumed pt care @ 1900. Pt ca&ox3, no signs of distress. Pt resting quietly in bed, and denies pain at this time. Plan if care ongoing.
--- NOTE | 2024-02-15 19:48 | PC.NURSE ---
Pt requested and given drink and ice chips. Plan of care ongoing.
[2024-02-15] MEDS: QUEtiapine Fumarate 25 MG TABLET PO (20:47)
[2024-02-15] MEDS: Ferrous Sulfate 324 MG TABLET.DR PO (20:47)
[2024-02-15] MEDS: lamoTRIgine 100 MG TABLET 200 MG PO (20:47)
[2024-02-15] MEDS: DULoxetine HCl 60 MG CAPSULE.DR PO (20:47)
--- NOTE | 2024-02-15 20:49 | PC.NURSE ---
Pt medicated per mar. Pt denies pain at this time. Plan of care ongoing.
[2024-02-16] VITALS (7 sets, daily range): BP systolic 131–186; BP diastolic 77–103; PULSE 84–105; RESP 18–20; TEMP 36.4–36.8; O2SAT 90–96
[2024-02-16] MEDS: 0.9 % Sodium Chloride Flush 3 ML SYRINGE IVFLUSH ×3 (00:27→17:34)
[2024-02-16] MEDS: methylPREDNISolone Sod Succ 40 MG/ML VIAL IVPUSH ×3 (06:38→21:48)
[2024-02-16] MEDS: Omeprazole 40 MG CAPSULE.DR PO (06:38)
[2024-02-16] MEDS: Enoxaparin Sodium 40 MG/0.4 ML SYRINGE SUBCUT (06:38)
--- NOTE | 2024-02-16 06:43 | PC.NURSE ---
Pt medicated per nov. Plan of care ongoing.
[2024-02-16] MEDS: Albuterol/Iprat 2.5/0.5MG 3 ML AMPUL.NEB INHALE ×3 (07:16→21:46)
[2024-02-16 07:50] LABS: MANUAL DIFF FLAG NO
[2024-02-16 07:54] LABS: Basophils Percent Auto 0.3 % (0-2); Hematocrit 35.5 % (37.0-47.0); Hemoglobin 10.9 g/dl (12.0-16.0); Imm Gran Abs Auto 0.12 X10*3/uL (0.00-0.03); Imm Gran Pct Auto 0.8 % (0.0-0.4); Lymphocytes Absolute Auto 2.6 X10*3/uL (1.2-4.9); Lymphocytes Percent Auto 17.6 % (20-40); Mean Corpuscular HGB Conc 30.7 g/dl (31.0-35.0); Mean Corpuscular Hemoglobin 20.6 pg (27.0-33.0); Mean Corpuscular Volume 67.1 fL (80.0-98.0); Mean Platelet Volume 9.4 fL (9.4-12.3); Monocytes Absolute Auto 1.3 X10*3/uL (0.1-1.2); Monocytes Percent Auto 9.1 % (2-11); Neutrophils Absolute Auto 10.6 x10*3/uL (2.0-8.3); Neutrophils Percent Auto 72.2 % (45-73); Platelet Count 368 X10*3/uL (160-400); Red Blood Count 5.29 X10*6/uL (4.20-5.50); Red Cell Distribution Width 15.8 % (11.0-16.0); White Blood Count 14.7 X10*3/uL (4.8-10.8)
--- NOTE | 2024-02-16 07:55 | HO.PM.IMPN ---
Subjective Subjective Date of Service: 02/16/24 Interval History: Seen in follow-up for acute hypoxemic respiratory failure and sepsis due to COPD exacerbation Interval history: Reports feeling better slightly. Still with productive cough and wheezing. Denies shortness breath or chest pain. On 3 L supplemental O2, afebrile Review of Systems Review of Systems: Yes all other systems are reviewed and are negative Physical Exam Vital Signs: Vital Signs: Last Vital Signs Temp 97.6 F 02/16/24 06:06 Pulse 99 02/16/24 07:16 Resp 20 02/16/24 07:16 BP 131/77 02/16/24 06:06 Pulse Ox 93 02/16/24 06:06 O2 Del Method Nasal Cannula 02/16/24 06:06 O2 Flow Rate 3 02/15/24 11:20 BMI result Body Mass Index 31.9 Objective Data Active Medications Acetaminophen (Acetaminophen 325 Mg Tablet) 650 mg PO Q6H PRN PRN Reason: Pain, Mild (Pain Scale 1-3) Albuterol Sulfate (Albuterol Sulfate (0.083%) 2.5 Mg/3 Ml Vial.Neb) 2.5 mg INHALE TID PRN PRN Reason: Shortness Of Breath Or Wheezing Albuterol/Ipratropium (Albuterol/Iprat 2.5/0.5mg 3 Ml Ampul.Neb) 3 ml INHALE RQ4H WHILE AWAKE [facility] Last Admin: 02/16/24 07:16 Dose: 3 ml Documented By: ANSELMO Albuterol/Ipratropium (Albuterol/Iprat 2.5/0.5mg 3 Ml Ampul.Neb) 3 ml INHALE Q4H PRN PRN Reason: Wheezing Azithromycin (Azithromycin 500 Mg Tablet) 500 mg PO Q24H [facility] Duloxetine HCl (Duloxetine Hcl 60 Mg Capsule.) 60 mg PO BID [facility] Last Admin: 02/15/24 20:47 Dose: 60 mg Documented By: MORRIS Enoxaparin Sodium (Enoxaparin Sodium 40 Mg/0.4 Ml Syringe) 40 mg SUBCUT Q24H [facility] Last Admin: 02/16/24 06:38 Dose: 40 mg Documented By: MORRIS Ferrous Sulfate (Ferrous Sulfate 324 Mg Tablet.) 324 mg PO BEDTIME [facility] Last Admin: 02/15/24 20:47 Dose: 324 mg Documented By: MORRIS Lamotrigine (Lamotrigine 100 Mg Tablet) 200 mg PO BEDTIME [facility] Last Admin: 02/15/24 20:47 Dose: 200 mg Documented By: MORRIS Lorazepam (Lorazepam 0.5 Mg Tablet) 0.5 mg PO BID PRN PRN Reason: anxiety Last Admin: 02/15/24 14:00 Dose: 0.5 mg Documented By: ANTONIO Melatonin (Melatonin 3 Mg Tablet) 6 mg PO BEDTIME PRN PRN Reason: Insomnia Methylprednisolone Sodium Succinate (Methylprednisolone Sod Succ 40 Mg/Ml Vial) 40 mg IVPUSH Q12H [facility] Last Admin: 02/16/24 06:38 Dose: 40 mg Documented By: MORRIS Mirabegron (Mirabegron 25 Mg Tab.Er.24h) 25 mg PO DAILY [facility] Nicotine (Nicotine 14 Mg Patch.Td24) 14 mg TRANSDERMA DAILY [facility] Last Admin: 02/15/24 06:22 Dose: Not Given Documented By: NAE Non-Admin Reason: Patient Refused Omeprazole (Omeprazole 40 Mg Capsule.) 40 mg PO DAILY@0630 [facility] Last Admin: 02/16/24 06:38 Dose: 40 mg Documented By: MORRIS Ondansetron HCl (Ondansetron Hcl 4 Mg/2 Ml Vial) 4 mg IVPUSH Q8H PRN PRN Reason: Nausea and Vomiting Quetiapine Fumarate (Quetiapine Fumarate 25 Mg Tablet) 25 mg PO BEDTIME [facility] Last Admin: 02/15/24 20:47 Dose: 25 mg Documented By: MORRIS Sodium Chloride (0.9 % Sodium Chloride Flush 3 Ml Syringe) 3 ml IVFLUSH QSHIFT [facility] Last Admin: 02/16/24 00:27 Dose: 3 ml Documented By: MORRIS Labs 02/16/24 07:39 02/16/24 07:39 Labs: Laboratory Results - last 24 hr 02/15/24 02/16/24 09:22 07:39 MCV 67.1 L MCH 20.6 L MCHC 30.7 L RDW 15.8 Plt Count 368 MPV 9.4 Immature Gran % (Auto) 0.8 H Neut % (Auto) 72.2 Lymph % (Auto) 17.6 L [place] % (Auto) 9.1 Eos % (Auto) 0.0 Baso % (Auto) 0.3 Lymph # (Auto) 2.6 [place] # (Auto) 1.3 H Eos # (Auto) 0.0 Baso # (Auto) 0.0 Abs Immat Gran (auto) 0.12 H Absolute Neuts (auto) 10.6 H Absolute Nucleated RBC 0.000 Nucleated RBC % (auto) 0.0 Troponin I High Sens 20.6 H Microbiology Microbiology Results: Microbiology 02/15/24 02:18 Blood Culture - Preliminary Blood - Venous No growth after 24 hours. 02/15/24 02:06 Blood Culture - Preliminary Blood - Venous No growth after 24 hours. Assessment and Plan (1) Hypoxia: Status: Acute (2) COPD exacerbation: Status: Acute (3) Sepsis: Status: Acute Plan 63-year-old female with pertinent history of tobacco use disorder, COPD not on home oxygen, mood disorder, gastroesophageal reflux disease admitted for further management of acute hypoxemic respiratory failure and sepsis due to COPD exacerbation #Acute hypoxic respiratory failure due to acute exacerbation of COPD with sepsis -IV methylprednisolone 40 mg--> increase to 40mg q8h -DuoNebs q.4h while awake/p.r.n. -IV azithromycin for pleiotropic effect (initiated 02/14) -RPP positive for entero/rhinoviurs -add incentive spirometry -recheck cxr now given ongoing adventitious lung sounds and failure to wean O2 -continue supplemental O2 to maintain oximetry 90-92%, wean as tolerated . not interested in home O2 eval at this time #Mood disorder -continue home meds #Tobacco use disorder -Counseled regarding cessation. Nicotine patch while in the hospital #Gastroesophageal reflux disease -continue PPI # elevated troponins-likely type 2 in setting of increased demand due to hypoxia -tropes flat 18.8 --> 20.6 -EKG without acute ischemic changes, no chest pain elevated troponin DVT prophylaxis: Lovenox Full code Patient requires ongoing inpatient stay due to acute hypoxemic respiratory failure and sepsis due to COPD exacerbation requiring IV steroids, antibiotics, and scheduled nebs with close monitoring of respiratory status to prevent and monitor for decompensation Quality Stroke Does the patient have a stroke diagnosis?: No VTE Prior VTE?: No VTE Risk Level:: Medical - moderate - high VTE Device Contraindication: Treatment Not Indicated VTE Drug Contraindication: N/A - Med Ordered
[2024-02-16 08:14] LABS: Blood Urea Nitrogen 15 mg/dL (9-16); Calcium 9.3 mg/dL (8.4-10.2); Creatinine Clr Calc Pharmacy 84.3; Estimated Glomerular Filt Rate > 60; Glucose Random 99 mg/dL (60-115)
[2024-02-16 08:27] LABS: Anion Gap 10 (12-20); Carbon Dioxide 29 mmol/L (22-29); Chloride 106 mmol/L (96-108); Sodium 140 mmol/L (135-145)
[2024-02-16] MEDS: Azithromycin 500 MG TABLET PO (08:45)
[2024-02-16] MEDS: DULoxetine HCl 60 MG CAPSULE.DR PO ×2 (08:45→20:27)
[2024-02-16] MEDS: LORazepam 0.5 MG TABLET PO ×2 (08:46→19:32)
--- NOTE | 2024-02-16 08:52 | PC.NURSE ---
remains alert and oriented, requesting her PRN anxiety medications. medicated per the MAR, remains on 3L nasal cannula. call torres within reach, offering no other complaints.
[2024-02-16] MEDS: Mirabegron 25 MG TAB.ER.24H PO (09:40)
[2024-02-16 11:21] LABS: Adenovirus PCR Not Detected (Not Detect.); Bordetella parapertussis PCR Not Detected (Not Detect.); Bordetella pertussis PCR Not Detected (Not Detect.); Chlamydia pneumoniae PCR Not Detected (Not Detect.); Coronavirus 229E PCR Not Detected (Not Detect.); Coronavirus HKU1 PCR Not Detected (Not Detect.); Coronavirus NL63 PCR Not Detected (Not Detect.); Coronavirus OC43 PCR Not Detected (Not Detect.); Human metapneumovirus PCR Not Detected (Not Detect.); Influenza A PCR Not Detected (Not Detect.); Influenza B PCR Not Detected (Not Detect.); Mycoplasma pneumoniae PCR Not Detected (Not Detect.); Parainfluenza 1 PCR Not Detected (Not Detect.); Parainfluenza 2 PCR Not Detected (Not Detect.); Parainfluenza 3 PCR Not Detected (Not Detect.); Parainfluenza 4 PCR Not Detected (Not Detect.); RSV PCR Not Detected (Not Detect.); Rhino/Enterovirus PCR Detected (Not Detect.)
[2024-02-16 12:13] LABS: SARS-CoV-2 PCR Not Detected (Not Detect.)
[2024-02-16] MEDS: Acetaminophen 325 MG TABLET 650 MG PO (13:42)
[2024-02-16] MEDS: guaiFENesin 200 MG/10 ML 10 ML LIQUID PO ×2 (14:36→20:26)
--- NOTE | 2024-02-16 14:47 | MHC.CM.PN ---
PT REPORTS SHE LIVES WITH HER S/O AND IS INDEPENDENT WITH CARE SHE HAS NO DME OR SERVICES, SHE REPORTED HAVING AN INHALER ONLY AND NO DME SHE DOES NOT HAVE A HCP AND DOES NOT WANT TO COMPLETE ONE TODAY PCP: BLANKA KENNY DCP: HOME NO SERVICES VIA PRIVATE TRANSPORT
--- NOTE | 2024-02-16 18:43 | PC.NURSE ---
Patient upset and wondering why she is still down in the ED/Overflow and is stating that she has not seen a provider all day and she is wondering what is going on with her health. 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
--- NOTE | 2024-02-16 19:33 | PC.NURSE ---
Patient with increased anxiety, Kavitha HART ordered for a dose of Ativan for the patient which was administered per NOV.
[2024-02-16] MEDS: QUEtiapine Fumarate 25 MG TABLET PO (20:27)
[2024-02-16] MEDS: lamoTRIgine 100 MG TABLET 200 MG PO (20:27)
[2024-02-16] MEDS: Ferrous Sulfate 324 MG TABLET.DR PO (20:27)
[2024-02-17] VITALS (10 sets, daily range): BP systolic 140–176; BP diastolic 71–85; PULSE 82–101; RESP 16–20; TEMP 36.1–36.6; O2SAT 90–96; BMI 28.9
[2024-02-17] MEDS: Labetalol HCL 100 MG/20 ML VIAL 10 MG IVPUSH (01:07)
[2024-02-17] MEDS: 0.9 % Sodium Chloride Flush 3 ML SYRINGE IVFLUSH ×2 (01:07→08:20)
[2024-02-17] MEDS: guaiFENesin 200 MG/10 ML 10 ML LIQUID PO ×4 (01:10→19:50)
[2024-02-17 05:57] LABS: Anion Gap 13 (12-20); Blood Urea Nitrogen 18 mg/dL (9-16); Calcium 9.7 mg/dL (8.4-10.2); Carbon Dioxide 26 mmol/L (22-29); Chloride 105 mmol/L (96-108); Creatinine Clr Calc Pharmacy 78.1; Estimated Glomerular Filt Rate > 60; Glucose Random 109 mg/dL (60-115); Potassium 4.7 mmol/L (3.3-5.1); Sodium 139 mmol/L (135-145)
[2024-02-17] MEDS: Omeprazole 40 MG CAPSULE.DR PO (06:15)
[2024-02-17] MEDS: Enoxaparin Sodium 40 MG/0.4 ML SYRINGE SUBCUT (06:15)
[2024-02-17] MEDS: methylPREDNISolone Sod Succ 40 MG/ML VIAL IVPUSH ×3 (06:15→19:51)
[2024-02-17 07:58] LABS: MANUAL DIFF FLAG NO
[2024-02-17 08:08] LABS: Basophils Percent Auto 0.2 % (0-2); Hemoglobin 11.7 g/dl (12.0-16.0); Imm Gran Abs Auto 0.15 X10*3/uL (0.00-0.03); Imm Gran Pct Auto 1.2 % (0.0-0.4); Lymphocytes Absolute Auto 1.3 X10*3/uL (1.2-4.9); Mean Corpuscular HGB Conc 31.6 g/dl (31.0-35.0); Mean Corpuscular Hemoglobin 21.2 pg (27.0-33.0); Mean Corpuscular Volume 66.9 fL (80.0-98.0); Mean Platelet Volume 9.7 fL (9.4-12.3); Monocytes Absolute Auto 0.6 X10*3/uL (0.1-1.2); Monocytes Percent Auto 4.9 % (2-11); Neutrophils Absolute Auto 10.7 x10*3/uL (2.0-8.3); Neutrophils Percent Auto 83.7 % (45-73); Platelet Count 425 X10*3/uL (160-400); Red Blood Count 5.53 X10*6/uL (4.20-5.50); Red Cell Distribution Width 15.7 % (11.0-16.0); White Blood Count 12.8 X10*3/uL (4.8-10.8)
[2024-02-17] MEDS: DULoxetine HCl 60 MG CAPSULE.DR PO ×2 (08:18→19:51)
[2024-02-17] MEDS: Azithromycin 500 MG TABLET PO (08:18)
[2024-02-17] MEDS: Albuterol/Iprat 2.5/0.5MG 3 ML AMPUL.NEB INHALE ×4 (08:31→20:35)
[2024-02-17] MEDS: Mirabegron 25 MG TAB.ER.24H PO (09:42)
[2024-02-17] MEDS: LORazepam 0.5 MG TABLET PO (09:44)
--- NOTE | 2024-02-17 10:15 | HO.PM.IMPN ---
Subjective Subjective Date of Service: 02/17/24 Interval History: Seen in follow-up for acute hypoxemic respiratory failure and sepsis due to COPD exacerbation Interval history:feels better, and wish to go home, no sob, O2 sat dropped to 85 on room air and at resti\ Physical Exam Vital Signs: Vital Signs: Last Vital Signs Temp 97.6 F 02/17/24 07:19 Pulse 84 02/17/24 08:36 Resp 20 02/17/24 08:36 BP 176/85 H 02/17/24 07:19 Pulse Ox 95 02/17/24 07:19 O2 Del Method Nasal Cannula 02/17/24 07:19 O2 Flow Rate 3 02/17/24 07:19 BMI result Body Mass Index 28.9 General: AO X 3, no acute distress Resp: CTA bilateral, no wheezes, normal effort CVS: S1,S2,RRR GI: +BS, NT, no distention Skin: No rash Neuro: motor grossly intact Psych: appropriate affect Objective Data Active Medications Acetaminophen (Acetaminophen 325 Mg Tablet) 650 mg PO Q6H PRN PRN Reason: Pain, Mild (Pain Scale 1-3) Last Admin: 02/16/24 13:42 Dose: 650 mg Documented By: TAIWO Albuterol Sulfate (Albuterol Sulfate (0.083%) 2.5 Mg/3 Ml Vial.Neb) 2.5 mg INHALE TID PRN PRN Reason: Shortness Of Breath Or Wheezing Albuterol/Ipratropium (Albuterol/Iprat 2.5/0.5mg 3 Ml Ampul.Neb) 3 ml INHALE RQ4H WHILE AWAKE [facility] Last Admin: 02/17/24 08:31 Dose: 3 ml Documented By: SHILA Albuterol/Ipratropium (Albuterol/Iprat 2.5/0.5mg 3 Ml Ampul.Neb) 3 ml INHALE Q4H PRN PRN Reason: Wheezing Azithromycin (Azithromycin 500 Mg Tablet) 500 mg PO Q24H [facility] Last Admin: 02/17/24 08:18 Dose: 500 mg Documented By: CHAR Duloxetine HCl (Duloxetine Hcl 60 Mg Capsule.Dr) 60 mg PO BID [facility] Last Admin: 02/17/24 08:18 Dose: 60 mg Documented By: CHAR Enoxaparin Sodium (Enoxaparin Sodium 40 Mg/0.4 Ml Syringe) 40 mg SUBCUT Q24H [facility] Last Admin: 02/17/24 06:15 Dose: 40 mg Documented By: CIELO Ferrous Sulfate (Ferrous Sulfate 324 Mg Tablet.) 324 mg PO BEDTIME [facility] Last Admin: 02/16/24 20:27 Dose: 324 mg Documented By: TAIWO Guaifenesin (Guaifenesin 200 Mg/10 Ml 10 Ml Liquid) 10 ml PO Q6H [facility] Last Admin: 02/17/24 08:18 Dose: 10 ml Documented By: CHAR Lamotrigine (Lamotrigine 100 Mg Tablet) 200 mg PO BEDTIME [facility] Last Admin: 02/16/24 20:27 Dose: 200 mg Documented By: TAIWO Lorazepam (Lorazepam 0.5 Mg Tablet) 0.5 mg PO BID PRN PRN Reason: anxiety Last Admin: 02/17/24 09:44 Dose: 0.5 mg Documented By: CHAR Melatonin (Melatonin 3 Mg Tablet) 6 mg PO BEDTIME PRN PRN Reason: Insomnia Methylprednisolone Sodium Succinate (Methylprednisolone Sod Succ 40 Mg/Ml Vial) 40 mg IVPUSH Q8H [facility] Last Admin: 02/17/24 06:15 Dose: 40 mg Documented By: CIELO Mirabegron (Mirabegron 25 Mg Tab.Er.24h) 25 mg PO DAILY [facility] Last Admin: 02/17/24 09:42 Dose: 25 mg Documented By: CHAR Nicotine (Nicotine 14 Mg Patch.Td24) 14 mg TRANSDERMA DAILY [facility] Last Admin: 02/17/24 08:17 Dose: Not Given Documented By: CHAR Non-Admin Reason: Patient Refused Omeprazole (Omeprazole 40 Mg Capsule.) 40 mg PO DAILY@0630 [facility] Last Admin: 02/17/24 06:15 Dose: 40 mg Documented By: CIELO Ondansetron HCl (Ondansetron Hcl 4 Mg/2 Ml Vial) 4 mg IVPUSH Q8H PRN PRN Reason: Nausea and Vomiting Quetiapine Fumarate (Quetiapine Fumarate 25 Mg Tablet) 25 mg PO BEDTIME [facility] Last Admin: 02/16/24 20:27 Dose: 25 mg Documented By: TAIWO Sodium Chloride (0.9 % Sodium Chloride Flush 3 Ml Syringe) 3 ml IVFLUSH QSHIFT [facility] Last Admin: 02/17/24 08:20 Dose: 3 ml Documented By: CHAR Labs 02/17/24 05:17 02/17/24 05:17 Labs: Laboratory Results - last 24 hr 02/16/24 02/17/24 02:58 05:17 MCV 66.9 L MCH 21.2 L MCHC 31.6 RDW 15.7 Plt Count 425 H MPV 9.7 Immature Gran % (Auto) 1.2 H Neut % (Auto) 83.7 H Lymph % (Auto) 10.0 L [place] % (Auto) 4.9 Eos % (Auto) 0.0 Baso % (Auto) 0.2 Lymph # (Auto) 1.3 [place] # (Auto) 0.6 Eos # (Auto) 0.0 Baso # (Auto) 0.0 Abs Immat Gran (auto) 0.15 H Absolute Neuts (auto) 10.7 H Absolute Nucleated RBC 0.000 Nucleated RBC % (auto) 0.0 Hold Purple Top SEE NOTE Anion Gap 13 Estim Creat Clear Calc 78.1 Estimated GFR > 60 Random Glucose 109 Calcium 9.7 Respiratory Panel Samuels See Note Adenovirus (Rapid PCR) Not Detected B.pert (TEM-PCR) Not Detected B.parapertussis DNA PCR Not Detected C. pneumoniae DNA (PCR) Not Detected Coronavirus OC43 (PCR) Not Detected Coronavirus HKU1 (PCR) Not Detected Coronavirus 229E (PCR) Not Detected Coronavirus NL63 (PCR) Not Detected Human Metapneumovir PCR Not Detected Influenza A (RT-PCR) Not Detected Influenza B (RT-PCR) Not Detected M. pneumoniae (PCR) Not Detected Parainfluenza 1 (PCR) Not Detected Parainfluenza 2 (PCR) Not Detected Parainfluenza 3 (PCR) Not Detected Parainfluenza 4 (PCR) Not Detected RSV (PCR) Not Detected Entero/Rhino (PCR) Detected A SARS-CoV-2 RNA (RT-PCR) Not Detected Microbiology Microbiology Results: Microbiology 02/15/24 02:18 Blood Culture - Preliminary Blood - Venous No growth after 48 hours. 02/15/24 02:06 Blood Culture - Preliminary Blood - Venous No growth after 48 hours. Assessment and Plan (1) Hypoxia: Status: Acute (2) COPD exacerbation: Status: Acute (3) Sepsis: Status: Acute Plan 63-year-old female with pertinent history of tobacco use disorder, COPD not on home oxygen, mood disorder, gastroesophageal reflux disease admitted for further management of acute hypoxemic respiratory failure and sepsis due to COPD exacerbation #Acute hypoxic respiratory failure due to acute exacerbation of COPD d/t viral sepsis (entero/rhino virus) -IV methylprednisolone to Prednisone by tomorrow -DuoNebs q.4h while awake/p.r.n. -IV azithromycin for pleiotropic effect (initiated 02/14) - incentive spirometry -supplemental O2 with goal of sat 88 to 92 #Mood disorder -continue home meds #Tobacco use disorder -Counseled regarding cessation. Nicotine patch while in the hospital #Gastroesophageal reflux disease -continue PPI # elevated troponins-likely type 2 in setting of increased demand due to hypoxia -tropes flat 18.8 --> 20.6 -EKG without acute ischemic changes, no chest pain elevated troponin DVT prophylaxis: Lovenox Full code Patient requires ongoing inpatient stay due to acute hypoxemic respiratory failure and sepsis due to COPD exacerbation requiring IV steroids, antibiotics, and scheduled nebs with close monitoring of respiratory status to prevent and monitor for decompensation Quality Stroke Does the patient have a stroke diagnosis?: No VTE Prior VTE?: No VTE Risk Level:: Medical - moderate - high VTE Device Contraindication: Treatment Not Indicated VTE Drug Contraindication: N/A - Med Ordered
--- NOTE | 2024-02-17 10:20 | MHC.CLN ---
NUTRITION CONSULT FOR WEIGHT LOSS DUE TO POOR PO. WEIGHT HX REVIEWED THROUGH 09/01/21. SUSPECT ERROR IN RECORDED WEIGHTS SINCE WEIGHT= EXACTLY 81.647 KG IN 3 DIFFERENT YEARS. COMPARING WEIGHT ON 02/17/24=74.1 KG ON UNIT AND ON 11/27/22 IN MD OFFICE=76.4 KG. VALUES SHOW WEIGHTS APPROX EQUAL X 14 MONTHS. CURRENT INTAKE 100%. DIET=REGULAR. NO ADDITIONAL NUTRITION INTERVENTIONS AT THIS TIME DUE TO CURRENT GOOD PO INTAKE.
--- NOTE | 2024-02-17 10:51 | MHC.CM.PN ---
PER MD ROUNDS, PT NOT YET READY TO DC DCP REMAINS HOME VIA PRIVATE TRANSPORT
[2024-02-17 11:12] LABS: CDiff Gene PCR NEGATIVE (Negative)
[2024-02-17 12:39] LABS: Adenovirus F 40/41 Not Detected (Not Detect.); Astrovirus Not Detected (Not Detect.); Campylobacter Not Detected (Not Detect.); Cryptosporidium Not Detected (Not Detect.); Cyclospora cayetanensis Not Detected (Not Detect.); E. coli EAEC Not Detected (Not Detect.); E. coli EPEC Not Detected (Not Detect.); E. coli ETEC Not Detected (Not Detect.); E. coli STEC Not Detected (Not Detect.); Entamoeba histolytica Not Detected (Not Detect.); Giardia lamblia Not Detected (Not Detect.); Norovirus GI/GII Not Detected (Not Detect.); Plesiomonas shigelloides Not Detected (Not Detect.); Rotavirus A Not Detected (Not Detect.); Salmonella Not Detected (Not Detect.); Sapovirus Not Detected (Not Detect.); Shigella sp./EIEC Not Detected (Not Detect.); Vibrio Not Detected (Not Detect.); Vibrio Cholerae Not Detected (Not Detect.); Yersinia enterocolitica Not Detected (Not Detect.)
[2024-02-17] MEDS: Ferrous Sulfate 324 MG TABLET.DR PO (19:50)
[2024-02-17] MEDS: lamoTRIgine 100 MG TABLET 200 MG PO (19:50)
[2024-02-17] MEDS: QUEtiapine Fumarate 25 MG TABLET PO (19:51)
[2024-02-18] VITALS (7 sets, daily range): BP systolic 152–181; BP diastolic 64–96; PULSE 64–114; RESP 20; TEMP 36.2–36.8; O2SAT 83–95
[2024-02-18] MEDS: guaiFENesin 200 MG/10 ML 10 ML LIQUID PO (02:12)
[2024-02-18] MEDS: Omeprazole 40 MG CAPSULE.DR PO (05:23)
[2024-02-18] MEDS: Enoxaparin Sodium 40 MG/0.4 ML SYRINGE SUBCUT (05:23)
[2024-02-18] MEDS: methylPREDNISolone Sod Succ 40 MG/ML VIAL IVPUSH (05:24)
[2024-02-18] MEDS: Albuterol/Iprat 2.5/0.5MG 3 ML AMPUL.NEB INHALE ×2 (08:33→11:53)
[2024-02-18] MEDS: amLODIPine Besylate 5 MG TABLET PO (09:03)
[2024-02-18] MEDS: Azithromycin 500 MG TABLET PO (09:03)
[2024-02-18] MEDS: Mirabegron 25 MG TAB.ER.24H PO (09:03)
[2024-02-18] MEDS: 0.9 % Sodium Chloride Flush 3 ML SYRINGE IVFLUSH (09:03)
[2024-02-18] MEDS: DULoxetine HCl 60 MG CAPSULE.DR PO (09:03)
[2024-02-18] MEDS: LORazepam 0.5 MG TABLET PO (10:38)
--- NOTE | 2024-02-18 10:47 | P.DS_ITS ---
DS: Providers Provider Date of Service: 02/18/24 Date of admission: 02/15/24 05:12 Date of discharge: 02/18/24 Primary care physician: Daljit Irby MD Attending physician on admission: Za Brody Attending physician on discharge: Yefri Brooks Discharging clinician: Kavitha Vazquez DS: Diagnosis Discharge Diagnosis (1) Hypoxia: Status: Acute (2) COPD exacerbation: Status: Acute (3) Sepsis: Status: Acute DS: Summary Hospital Course Hospital Course: HPI on admission by Dr. Brody 02/14: This is a 63-year-old female with pertinent history of tobacco use disorder, COPD not on home oxygen, mood disorder, gastroesophageal reflux disease who presents to the emergency department for evaluation of dyspnea. Patient states her symptoms started 5 days prior to presentation. She has been having dyspnea which is worse with exertion. Also has associated wheezing and productive cough . No orthopnea or PND. Her symptoms have been progressive and without any relief. She continues to smoke cigarettes. No fever, chills, chest discomfort, palpitations, abdominal pain, changes in urinary or bowel habits. In the emergency department, patient requiring supplemental oxygen and continues to wheeze despite multiple DuoNeb treatments. Hospital Course: Pt admitted to medical service for management of COPD exacberbation with acute hypoxemic respiratory failure with viral sepsis. There was no severe sepsis. She responded well to duonebs and iv steroids and was also given IV azithromycin for pleiotropic effect. Leukocytosis did trend down and vitals remained stable throughout admission. Troponins elevated but flat likely secondary to demand form hypoxia. Unfortunately, patient was unable to be weaned from supplemental O2 and she continued to desaturate to 83% on room air but maintained oximetry 93% on 2L Os via NC and 92% with ambulation on 2L supplemental O2 via NC. Home O 2 evaluation was performed and patient will need O2 outside the home, 2-3 hours a day, 7 days a week for ADL's. She was quite anxious throughout admission and required doses of ativan, which she does take at home. The patient does conitnue to smoke 1 pack of cigarettes on a daily basis and did receive nicotine patches while admitted. Importance of smoking cessation was conveyed to patient and she will be discharged with nicotine patches and advised to continue prednisone 20mg daily x 3 days. Will initiate Breo ellipta for maintenance and should contiue albuterol inhaler prn and duonebs q4h while awake. For mood disorder was continued on home meds and for GERD was continued on PPI. Blood pressures were elevated during administration, likely complicated by steroid use. She was started on 5mg amlodipine daily and should continue this on discharge. She should follow up with PCP and should undergo PFT as well. Time spent discussing smoking cessation with patient: 3 to 10 minutes Status at Discharge Functional status at discharge: independent ambulation Overall status at discharge: patient is progressing back to baseline Time Attestation Discharge Coordination Time (in mins): 40 Quality: Safe Use of Opioids Does Pt have an Active Cancer Diagnosis on the Problem List?: No Quality: Stroke Does the patient have a stroke diagnosis?: No Physical Exam Vital Signs: Vital Signs: Last Vital Signs Temp 97.4 F 02/18/24 07:29 Pulse 103 H 02/18/24 08:33 Resp 20 02/18/24 08:33 BP 181/96 H 02/18/24 09:03 Pulse Ox 92 02/18/24 07:29 O2 Del Method Nasal Cannula 02/18/24 07:29 O2 Flow Rate 2 02/18/24 07:29 BMI result Body Mass Index 28.9 DS: Data Data Completed and Pending Completed studies during hospitalization [Text1]: Procedures Excision of Stomach, Pylorus, Via Natural or Artificial Opening Endoscopic, Diagnostic (09/23/21) Transfusion of Nonautologous Red Blood Cells into Peripheral Vein, Percutaneous Approach (09/23/21) Labs on day of discharge: Laboratory Results - last 24 hr 02/17/24 09:25 Stl C. cayetanensis PCR Not Detected Stool Rotavirus A PCR Not Detected Stl Adenov F 40/41 PCR Not Detected Stool Astrovirus (PCR) Not Detected Stool Campylobacter PCR Not Detected Stool Cryptosporidium PCR Not Detected Stl Sh Tox Pr E STEC PCR Not Detected Stool E coli O157 PCR Not applicable Stl Enterotoxigenic E PCR Not Detected Stool EPEC (PCR) Not Detected Stool EAEC (PCR) Not Detected Stl E. histolytica PCR Not Detected Stool Giardia Lamblia PCR Not Detected Stl P. shigelloides PCR Not Detected Stool Salmonella PCR Not Detected Stool Sapovirus (PCR) Not Detected Stl Shigella/EIEC PCR Not Detected St Y.enterocolitica PCR Not Detected Stool Vibrio (PCR) Not Detected Stl Vibrio cholerae PCR Not Detected Stl Norovirus GI/GII PCR Not Detected C. difficile Tox B Gene NEGATIVE Preliminary micro results at discharge 02/15/24 02:18 Blood Culture - Preliminary Blood - Venous No growth after 48 hours. 02/15/24 02:06 Blood Culture - Preliminary Blood - Venous No growth after 48 hours. Discharge Plan Discharge Anticipated Discharge Date/Time: 02/18/24 11:08 Patient Disposition: Home, Self-Care Discharge Diagnosis: copd exacerbation, hypoxemic respiratory failure Referrals: [facility] [Outside] - 1 Week (HOME SERVICES FOR INTERMEDIATE VISITS-A NURSE WILL CALL YOU TO SET UP FIRST VISIT) Daljit Irby MD [Primary Care Provider] - 1 Week Discharge Medications: New amlodipine 5 mg Tablet 5 mg PO DAILY Qty: 90 0RF Protocol: Hold for SBP< HOLD for SBP < : 90 prednisone 20 mg tablet 20 mg PO DAILY Qty: 3 0RF nicotine 21 mg/24 hr patch 24 hour 1 patch transdermal DAILY Qty: 28 1RF fluticasone furoate-vilanterol [Breo Ellipta] 100-25 mcg/dose blister with device 1 inh inhalation DAILY Qty: 60 2RF Continued lorazepam 0.5 mg tablet 0.5 mg PO BID PRN (Reason: anxiety) Qty: 10 0RF lamotrigine 200 mg Tablet 200 mg PO BEDTIME duloxetine 60 mg Capsule, Delayed Rel Sprinkle 60 mg PO BID quetiapine 25 mg tablet 1 tab PO BEDTIME ibuprofen 800 mg tablet 1 tab PO TID PRN (Reason: Pain) ferrous sulfate 325 mg (65 mg iron) tablet 325 mg PO BEDTIME albuterol sulfate [ProAir HFA] 90 mcg/actuation HFA aerosol inhaler 2 puff inhalation Q4-6H PRN (Reason: shortness of breath or wheezing) Qty: 8.5 0RF omeprazole 40 mg capsule,delayed release(DR/EC) 40 mg PO DAILY Rx Instructions: After 8 weeks to take it daily Myrbetriq 25 mg tablet extended release 24 hr 25 mg PO DAILY Changed albuterol sulfate 2.5 mg /3 mL (0.083 %) solution for nebulization 2.5 mg inhalation QID PRN (Reason: Shortness Of Breath Or Wheezing) Qty: 180 1RF Discontinued prednisone 10 mg tablet See Taper PO DAILY Taper: Prednisone 50 mg daily for 3 Days and 0 Hour 40 mg daily for 3 Days and 0 Hour 30 mg daily for 3 Days and 0 Hour 20 mg daily for 3 Days and 0 Hour 10 mg daily for 3 Days and 0 Hour Patient Comments: Patient is on Day 4 (02/15/2024) Discharge Orders: Discharge Order (Routine); Ordered 02/18/24 Ordered By: Kavitha Vazquez Diet: Advance to usual diet Activity on Discharge: As tolerated Stand Alone Forms: Patient Portal Discharge page, Work/School Release Print Language: Lithuanian Care Plan Goals: For COPD exacerbation, continue prednisone 20mg daily x 3 additional days. Start using Breo Ellipta (fluticasone furoate- vilanterol) or equivalent- 1 puff daily for maintenance of COPD. This inhaler is used daily to prevent exacberbation and prevent progression of COPD but you will not feel the medication working like with rescue inhalers/nebs. Rinse mouth well after using to prevent thrush Use duonebs every 4 hours while awake and albuterol as needed for shortness of breath and wheezing You should continue using 2L supplemental O2 as adivsed You must stop smoking. Nicotine patches prescribed Blood pressures were elevated and you were started on amlodipine 5mg daily. Continue this daily Follow up with PCP and request pulmonary function testing Health Concerns: COPD exacerbation with viral sepsis Acute hypoxemic respiratory failue Entero/rhinovirus Cigarette smoking Plan of Treatment: Prednisone 20mg daily Breo ellipta daily Duonebs every 4 hours while awake, albuterol prn Smoking cessation- patches Assessment: See above. See discharge summary
--- NOTE | 2024-02-18 11:23 | MHC.CM.PN ---
Addendum entered by Becca Dobbins 02/18/24 14:01: PT WILL GO HOME WITH NEW HOME 02, PT WOULD LIKE A [facility]NA. [facility] IS FIRST CHOICE. REFERRAL SENT/ACCEPTS. Original Note: DP: PT HAS BEEN MEDICALLY CLEARED FOR DC HOME, NO SERVICES. PT HAS OWN RIDE HOME.
--- NOTE | 2024-02-18 13:02 | W.MHC.F2F ---
Service Date Service Date: 02/18/24 Encounter Date of encounter: 02/18/24 Reasons for Services Signs and symptoms assessed: shortness of breath Reason for jail: CV/CP assess and/or care and teach disease management Homebound: Leaving the home is medically contraindicated at this time without the asist of a device and/or another person due th the listed conditions above and below. Reason homebound: shortness of breath with minimal effort Homebound supporting statement: homebound due to shortness of breath due to exacerbation of copd, liming activity and therefore needs the assistance of another person Certification: Based on the above findings, I certify that this patient is confined to the home and needs intermittent jail care, physical therapy and/or speech therapy, or continues to need occupational therapy. The patient is under my care, and I have initiated the establishment of the plan of care. The patient will be followed by a physician who will periodically review the plan of care. Time Spent With Patient Time: Total time managing care of this patient today ____ minutes.
== END 2024-02-18 13:55 | disposition home or self-care (01) | DRG 720 ==
LOC: HO.ED 04:20 → HO.EDOVER 05:20 → HO.S3 02-16 23:41
PROVIDERS: Physician Assistant; Admitting Provider Student in an Organized Health Care Education/Training Program; Emergency Provider Emergency Medicine; PCP Internal Medicine; Visit Provider Internal Medicine
DX: A41.89 Other specified sepsis (principal); J96.01 Acute respiratory failure with hypoxia; B97.10 Unspecified enterovirus as the cause of diseases classified elsewhere; J44.1 Chronic obstructive pulmonary disease with (acute) exacerbation; K21.9 Gastro-esophageal reflux disease without esophagitis; F17.210 Nicotine dependence, cigarettes, uncomplicated; F39 Unspecified mood [affective] disorder; Z20.822 Contact with and (suspected) exposure to COVID-19; Z71.6 Tobacco abuse counseling; Z79.51 Long term (current) use of inhaled steroids; Z79.899 Other long term (current) drug therapy
CPT/HCPCS: 0241U; 36415; 71045; 80048; 80076; 80307; 82803; 83605; 83735; 83880; 84484; 85025; 85610; 86140; 87040; 87493; 87507; 87633; 93005; 94640; 99285; J0456; J1650; J1920; J2919

== ENCOUNTER → 2024-02-15 01:30 | Outpatient (BNV) | payer MEDICAID, SELFPAY | PROVIDERS: Admitting Provider Student in an Organized Health Care Education/Training Program; Emergency Provider Emergency Medicine; PCP Internal Medicine; Visit Provider Internal Medicine Cardiovascular Disease | DX: R06.02 Shortness of breath (principal) | CPT/HCPCS: 93010 ==

== ENCOUNTER → 2024-02-15 05:12 | Outpatient (BNV) | payer MEDICAID, SELFPAY | PROVIDERS: Admitting Provider Student in an Organized Health Care Education/Training Program; Emergency Provider Emergency Medicine; PCP Internal Medicine; Visit Provider Student in an Organized Health Care Education/Training Program | DX: R09.02 Hypoxemia (principal); J44.1 Chronic obstructive pulmonary disease with (acute) exacerbation; A41.9 Sepsis, unspecified organism | CPT/HCPCS: 99223; 99232; 99239; 99429; G0180 ==

== ENCOUNTER 2024-10-05 11:34 | Outpatient (REF) | payer OTHER, SELFPAY ==
--- NOTE | ~2024-10-05 | XR_ITS ---
CLINICAL HISTORY: ACUTE BRONCHITIS 2 view chest x-ray Comparison: None Findings: No consolidation or effusion. Normal size heart. No acute fracture. There is mild thoracic kyphosis. There is multilevel disc space narrowing, small osteophyte formation. Mild multilevel Schmorl's nodes IMPRESSION: No acute findings. Multilevel spondylosis This document has been electronically signed by: Bib Torre MD on 10/07/2024 08:58:35
--- OUTSIDE RECORDS SUMMARY | 2024-10-05 13:43 | XMS_ITS | Data Portability ---
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 REVIEW OF PRIOR EXTERNAL NOTES/RESULTS, ORDERING OF TEST(S) CATEGORY 2. ASSESSMENT REQUIRING INDEPENDENT HISTORIAN(S) INCLUDE WHO THE HISTORIAN IS AND RELATION TO PT AND WHY PT IS UNABLE TO GIVE COMPLETE HISTORY ELEMENT 3: RISK (LOW) RISK OF COMPLICATIONS AND/OR MORBIDITY OR MORTALITY OF PATIENT MANAGEMENT PROVIDER MUST THOROUGHLY DOCUMENT ALL OF THE ELEMENTS COVERED Not available 11/30/2022 14:18:40 Plan of Treatment Reminders Order Date Submit Date Provider Last Modified By Organization Details Last Modified Time Details Appointments None recorded. Lab lipid panel, serum 2023 [facility], [address] [place] [address], [id number], 4 11:05:54 CBC w/ auto diff 2023 [facility], [address] [place] [address], [address], 4 11:05:54 CMP, serum or plasma 2023 024 [facility], [address] [place] [address], [address], 4 11:22:06 urinalysis complete, reflex culture 2023 024 [facility], [address] [place] [address], [address], 4 11:01:07 iron + TIBC + ferritin, serum 2023 024 [facility], [address] [place] [address], [address], 4 11:05:54 vitamin B12 + folate, serum or blood 2023 024 [facility], [address] [place] [address], [address], 4 11:05:54 homocystei ne, serum or plasma 2023 024 [facility], [address] [place] [address], [address], 4 11:17:29 TSH + free T4, serum 2023 024 [facility], [address] [place] [address], [address], 4 11:06:30 Referral orthopedic surgeon referral - PLEASE SEE RADHIKA PLEASE SEE PHOTO PROVIDED recenty started on cephalexin has been to ER twice has been partially drained twice 2022 023 [email or web address] Luis MD, [address] [place], [address], 3 08:13:52 pulmonolog ist referral 2023 024 [email or web address] Supa Sullivan MD, [address] [place] [address] [place], [address], 4 14:25:12 Procedures None recorded. Surgeries None recorded. Imaging MAMMO, screening, digital, bilateral 2022 023 [facility] (Imaging), [address] [place], [address], 3 08:28:35 XR, chest, 2 view 2022 023 [facility] ([facility]), [address] [place], [address], 3 08:40:25 PFT, complete - [id number] 03/04/24-09/16 024 [facility], [address] [place], [address], 4 08:41:34 Medication Orders cephalexin 500 mg capsule 2022 023 [email or web address] [facility], [address] [place], [address], 3 12:15:48 prednisone 10 mg tablet 2022 023 [email or web address] [facility], [address] [place], [address], 4 10:32:59 Zithromax Z-Tim 250 mg tablet 2022 023 [email or web address] [facility], [address] [place], [address], 3 14:12:12 albuterol sulfate HFA 90 mcg/actuat ion aerosol inhaler 2022 023 [email or web address] [facility], [address] [place], [address], 4 14:51:15 lorazepam 0.5 mg tablet 2022 023 FITO [facility], [address] [facility] [place], [address], 3 11:51:57 oxybutynin chloride ER 5 mg tablet,ext ended release 24 hr 2022 023 [email or web address] [facility] [address] [facility] [place], [address], 4 10:50:31 Wellbutrin XL 150 mg 24 hr tablet, extended release 2022 023 [facility], [address] [facility] [place], [address], 4 09:07:42 prednisone 10 mg tablet 2022 023 [address] [facility] [address] [address] [facility] [place], [address], 4 10:32:59 levofloxac in 500 mg tablet 2022 023 [address] [address] [address] [facility] [place], [address], 4 10:32:44 duloxetine 60 mg capsule,de layed release 2022 023 [facility] [address] [facility] [place], [address], 3 10:18:19 Myrbetriq 25 mg tablet,ext ended release 2023 024 [facility] [address] [place], [address], 4 10:54:00 prednisone 10 mg tablet 2023 024 [facility] [address] [facility] [place], [address], 4 10:54:41 Patient TargetsNo targets recorded. Patient Instructions Encounter Date Encounter Id Patient Instructions Last Modified By Organization Details Last Modified Time 11/30/2022 [id number] mammogram: about this test Not available 11/30/2022 14:16:31 Reason for Referral Orthopedic Surgeon Referral for Prepatellar bursitis of right knee PLEASE SEE RADHIKA PLEASE SEE PHOTO PROVIDED recenty started on cephalexinhas been to ER twice has been partially drained twice Referring Physician: Daljit Irby, Internal Medicine, Encounter Date: 11/30/2022 Patient Monitor Referral for A cute respiratory failure needs PCP referral for evaluation, seen at [facility] Referring Physician: Ginny Purcell, Internal Medicine, Encounter Date: 03/02/2024 Results Created Date Observation Date Name Description Value Unit Range Abnormal Flag Note LastModifiedBy Organization Detail LastModifiedTime 05/31/20 23 05/31/2023 XR, chest , 2 view No observ ation record ed. [email or web address] [facility] (Medical Records) [address] [place], [address], 05/31/2023 11:13:40 02/15/20 24 02/15/2024 XR, chest , 1 view No observ ation record ed. [email or web address] [address] (Medical Records) [address] [place], [address], 02/18/2024 08:30:04 02/16/20 24 02/16/2024 XR, chest , 1 view No observ ation record ed. [email or web address] [facility] (Medical Records) [address] [place], [address], 02/18/2024 08:30:20 Result Notes None recorded. Problems Name Problem SNOMED Code Status Onset Date Resolution Date Notes Provider Name and Address Organization Details Recorded Time Temporoma ndibular joint disorder 96749809 Active 2019 Daljit Irby DO [address] [place] [address], [address], [facility] 0 11:11:51 Carpal tunnel syndrome of right wrist 405117728953 108 Active 2019 Daljit Irby DO [address] [place] [address], [address], [facility] 0 11:12:02 Chronic obstructi ve pulmonary disease 20314668 Active 2021 Daljit Irby, DO [address] [place] [address], [address], [facility] 2 10:56:45 Multiple gastric ulcers 705769262 Active 2021 Daljit Irby, DO [address] [place] [address], [address], [facility] 2 10:57:21 Insomnia 332368223 Active 2021 Daljit Irby, DO [address] [place] [address], [address], [facility] 2 10:59:47 Panic disorder 287754976 Active 2021 Daljit Irby, DO [address] [place] [address], [address], [facility] 2 11:01:07 Moderate recurrent major depressio n 64059214 Active 2021 TANNER LOCEK [address] [place] [address], [address], [facility] 2 11:43:50 Anxiety 65723886 Active 2021 TANNER LOCKE [address] [place] [address], [address], [facility] 2 12:22:43 Melena 0362133 Active 2021 TANNER LOCKE [address] [place] [address], [address], [facility] 2 10:33:58 Cobalamin deficienc y 612592346 Active 2021 TANNER LOCKE [address] [place] [address], [address], [facility] 2 10:34:46 Iron deficienc y anemia 71775044 Active 2021 TANNER LOCKE [address] [place], [address], [facility] 2 12:03:20 Injury of knee 218558099 Active 2022 TANNER LOCKE [address] [place], [address], [facility] 3 13:56:04 Injury of knee 833666719 Active 2022 T[place] LOCKE [address] [place], [address], [facility] 3 13:56:09 Swelling of knee joint 610582677 Active 2022 T[place] LOCKE [address] [place], [address], [facility] 3 13:57:51 Infected bursa 272286406 Active 2022 T[place] [place] [address] [place], [address], [facility] 3 10:28:39 Hematoma of right lower leg 593395171387 59226 Active 2022 T[place] [place]KE [address] [place], [address], [facility] 3 10:29:45 Prepatell ar bursitis of right knee 378360439613 100 Active 2022 Daljit Irby, DO [address] [place] [address], [address], [facility] 3 14:11:50 Infection of prepatell ar bursa of right knee 214670298743 9105 Active 2022 Daljit Irby, DO [address] [place] [address], [address], [facility] 3 14:12:07 Exacerbat ion of moderate persisten t asthma 358192767 Active 2022 T[address] [place], [address], [facility] 3 11:47:09 Urinary incontine nce 536959562 Active 2022 T[place] [place], [address], [facility] 3 11:48:56 Acute bronchiti s with bronchosp asm 14057964 Active 2022 T[place] [place], [address], [facility] 3 10:18:40 Smoker 34410879 Active 2022 T[place] [place], [address], [facility] 3 10:20:27 Pneumonia 221619845 Active 2022 T[address] [place], [address], [facility] 3 11:11:32 Tardive dyskinesi a 637816877 Active 2023 TANNER LOCKE [address] [place] [address], [address], [facility] 4 09:52:31 Hyperlipi demia 25515039 Active 2023 TANNER LOCKE [address] [place] [address], [address], [facility] 4 10:52:48 Dyspnea 388553013 Active 2023 TANNER LOCKE [address] [place] [address], [address], [facility] 4 10:54:03 Acute respirato ry failure 29252649 Active 2023 T[address] [place], [address], [facility] 4 15:06:47 Mood disorder 45322489 Active 2023 T[address] LOCKE [address] [place], [address], [facility] 4 15:11:46 Acute bronchiti s 65668838 Active 2024 T[address] LOCKE [address] [place], [address], [facility] 5 10:23:01 Asthma 180045051 [facility] 10:31:[facility] Gastroeso phageal reflux disease 442481451 Active [facility] 8 10:31:31 Bipolar disorder 53983357 Active 2017 Otilia Santo NP, S [address] [place], [address], [facility] 8 10:56:03 Depressiv e disorder 89854454 Active 2017 Otilia Santo NP, S [address] [place], [address], [facility] 8 10:56:12 Problem Notes None recorded. Procedures Surgical History Date Name Laterality Status Provider Name and Address Organization Details Recorded Time 5 Colonoscopy completed Itzel Currie [facility] 10/05/2019 11:11:27 Imaging Results Imaging Date Name Status LastModified by Organiz ation Details LastModified Time 05/31/2023 XR, chest, 2 view completed [email or web address] [facility] (Medical Records) [address] [place], [address], 05/31/2023 11:13:40 02/15/2024 XR, chest, 1 view completed [email or web address] [facility] (Medical Records) [address] [place], [address], 02/18/2024 08:30:04 02/16/2024 XR, chest, 1 view completed [email or web address] [facility] (Medical Records) [address] [facility], [place], [address], 02/18/2024 08:30:20 Procedure Notes None recorded. Medical Equipment None Reported. Allergies No known drug allergies Medications Name Sig Start Date Stop Date Status Note LastModified by Organization Details LastModified Time Prescriptio n - Prior Authorizati on Request 02/09 completed Not Available Not Available Not Available vitamin b-12 1000mcg tablet, s TAKE 1 TABLET BY MOUTH EVERY DAY 02/09 completed Not Available Not Available Not Available quetiapine 25 mg tablet TAKE 1 TABLET BY MOUTH EVERY NIGHT AT BEDTIME. active Not Available Not Available No t Available acetaminoph en 325 mg tablet TAKE 2 TABLETS BY MOUTH EVERY 6 HOURS 02/09 completed Not Available Not Available Not Available prednisone 10 mg tablet 5 TABS DAILY X3 DAYS, THEN 4 TABS DAILY X3 DAYS, 3 TABS X3 DAYS, 2 TABS X3 DAYS, 1 TAB X3 DAYS active Not Available Not Available No t Available doxycycline hyclate 100 mg capsule TAKE 1 CAPSULE BY MOUTH TWICE A DAY FOR 14 DAYS 02/09 completed Not Available Not Available Not Available benztropine 0.5 mg tablet TAKE 1 TABLET BY MOUTH EVERY MORNING AND TAKE 2 TABLETS BY MOUTH AT NIGHT. active Not Available Not Available No t Available lamotrigine 200 mg tablet TAKE 1 TABLET BY MOUTH EVERY DAY DIRECTED active Not Available Not Available No t Available ipratropium 0.5 mg-albutero l 3 mg (2.5 mg base)/3 mL nebulizatio n soln PLEASE SEE ATTACHED FOR DETAILED DIRECTION S active Not Available Not Available No t Available albuterol sulfate 2.5 mg/3 mL (0.083 %) solution for nebulizatio n INHALE 1 VIAL VIA NEBULZIER 4 TIMES A DAY NEEDED FOR SHORTNESS OF BREATH OR WHEEZING active Not Available Not Available No t Available azithromyci n 250 mg tablet TAKE 2 TABLETS BY MOUTH TODAY, THEN TAKE 1 TABLET DAILY FOR 4 DAYS 04/08 completed Not Available Not Available Not Available ibuprofen 800 mg tablet TAKE 1 TABLET BY MOUTH THREE TIMES A DAY NEEDED 2023 active Not Available Not Available Not Avai lable risperidone 4 mg tablet TAKE 1 TABLET BY MOUTH EVERY DAY active Not Available Not Available No t Available prednisone 20 mg tablet TAKE 1 TABLET BY MOUTH EVERY DAY active Not Available Not Available No t Available amlodipine 5 mg tablet TAKE 1 TABLET BY MOUTH EVERY DAY active Not Available Not Available No t Available sulfamethox azole 800 mg-trimetho prim 160 mg tablet TAKE 1 TABLET BY MOUTH TWICE A DAY 02/09 completed Not Available Not Available Not Available omeprazole 40 mg capsule,del ayed release TAKE 1 CAPSULE BY MOUTH EVERY DAY active Not Available Not Available No t Available tramadol 50 mg tablet TAKE 1 TABLET BY MOUTH EVERY 8 HOURS NEEDED FOR SEVERE PAIN 11/30 completed Not Available Not Available Not Available acetaminoph en 500 mg tablet TAKE 1 TABLET BY MOUTH EVERY 6 HORUS NEEDED FOR FEVER/LETITIA N 02/09 completed Not Available Not Available Not Available risperidone 3 mg tablet TAKE 1 TABLET BY MOUTH EVERY DAY IN THE EVENING 02/09 completed Not Available Not Available Not Available prednisone 10 mg tablets in a dose pack Take 3 tablets every day by oral route as directed. 10/05 completed Not Available Not Available Not Available lorazepam 0.5 mg tablet TAKE ONE TABLET BY MOUTH TWICE A DAY NEEDED active Not Available Not Available No t Available trazodone 100 mg tablet TAKE 1 TO 2 TABLETS BY MOUTH EVERY EVENING. 02/09 completed Not Available Not Available Not Available cephalexin 500 mg capsule TAKE 1 CAPSULE BY MOUTH FOUR TIMES A DAY WITH MEALS FOR 10 DAYS 12/19 completed Not Available Not Available Not Available ferrous sulfate 325 mg (65 mg iron) tablet TAKE 1 TABLET BY MOUTH 3 TIMES DAILY. 2023 active Not Available Not Available Not Avai lable nicotine 21 mg/24 hr daily transdermal patch APPLY 1 PATCH TRANSDERM ALLY DAILY active Not Available Not Available No t Available docusate sodium 100 mg capsule TAKE 1 CAPSULE BY MOUTH TWO TIMES A DAY 02/09 completed Not Available Not Available Not Available oxybutynin chloride ER 5 mg tablet,exte nded release 24 hr TAKE 1 TABLET BY MOUTH EVERY DAY active Not Available Not Available No t Available sertraline 25 mg tablet TAKE 1 TABLET BY MOUTH EVERY DAY 2023 active Not Available Not Available Not Avai lable omeprazole 20 mg capsule,del ayed release TAKE 1 CAPSULE BY MOUTH EVERY DAY 03/23 completed Not Available Not Available Not Available cefuroxime axetil 500 mg tablet TAKE 1 TABLET BY MOUTH TWICE A DAY 10/10 completed Not Available Not Available Not Available levofloxaci n 500 mg tablet TAKE 1 TABLET EVERY 24 HOURS BY ORAL ROUTE FOR 12 DAYS 02/09 completed Not Available Not Available Not Available Vitamin B-12 1,000 mcg tablet TAKE 1 TABLET BY MOUTH EVERY DAY 02/09 completed Not Available Not Available Not Available Ventolin HFA 90 mcg/actuati on aerosol inhaler INHALE 2 PUFFS INTO THE LUNGS EVERY 4 HOURS NEEDED active Not Available Not Available No t Available oxycodone 5 mg tablet TAKE 1 TABLET BY MOUTH EVERY 4 TO 6 HOURS NEEDED FOR MODERATE PAIN 02/25 completed Not Available Not Available Not Available azithromyci n 500 mg tablet TAKE 1 TABLET BY MOUTH EVERY DAY FOR 4 DAYS 10/10 completed Not Available Not Available Not Available bupropion HCl XL 150 mg 24 hr tablet, extended release TAKE 1 TABLET BY MOUTH EVERY DAY FOR 30 DAYS 01/02 completed Not Available Not Available Not Available duloxetine 60 mg capsule,del ayed release TAKE 1 CAPSULE BY MOUTH TWICE A DAY FOR 90 DAYS 2023 active Not Available Not Available Not Avai lable Lamictal 10/05 completed Not Available Not Available Not Available Cymbalta 10/05 completed Not Available Not Available Not Available ferrous fumarate 325 mg (106 mg iron) tablet Take 1 tablet every day by oral route. 02/09 completed Not Available Not Available Not Available Chantix Continuing Month Box 1 mg tablet TAKE 1 TABLET BY MOUTH TWICE A DAY- NEEDS APPT FOR FURTHER REFILLS 12/20 completed Not Available Not Available Not Available Chantix Starting Month Box 0.5 mg (11)-1 mg (42) tablets in dose pack USE DIRECTED ON PACKAGE LABELING 12/20 completed Not Available Not Available Not Available Myrbetriq 25 mg tablet,exte nded release TAKE 1 TABLET BY MOUTH EVERY DAY 2023 active Not Available Not Available Not Avai lable Breo Ellipta 100 mcg-25 mcg/dose powder for inhalation INHALE 1 PUFF DAILY active Not Available Not Available No t Available Rexulti 0.5 mg tablet Take 1 tablet every day by oral route for 30 days. 02/09 completed Not Available Not Available Not Available Joselepb Ellipta 100 mcg-62.5 mcg-25 mcg powder for inhalation Inhale 1 puff every day by inhalatio n route for 30 days. 2021 active Not Available Not Available Not Avai lable Proair Digihaler 90 mcg/actuati on aerosol powder breath act, sensor INHALE 2 PUFFS EVERY 4 HOURS BY INHALATIO N ROUTE. 2022 active Not Available Not Available Not Avai lable Vitals Date Recorded Body height Body mass index (BMI) Body weight Heart rate Oxygen saturation Oxygen saturation in Arterial blood by Pulse oximetry Systolic blood pressure Diastolic blood pressure Provider Name and Address Organization Details Last Updated DateTime 3 157.48 cm 36.5 kg/m2 02499.9 6 g 90 /min 97 % 97 % 142 mm[Hg] 90 mm[Hg] Daljit Irby, DO [address] [place], [address] [place] [address] Internal Medicine 3 13:49:13 Date Recorded Body height Body mass index (BMI) Body weight Heart rate Oxygen saturation Oxygen saturation in Arterial blood by Pulse oximetry Systolic blood pressure Diastolic blood pressure Provider Name and Address Organization Details Last Updated DateTime 3 157.48 cm 35.8 kg/m2 95377.1 g 86 /min 92 % 92 % 148 mm[Hg] 80 mm[Hg] Court De La Rosa [facility] 3 11:32:57 Date Recorded Body height Body mass index (BMI) Body weight Heart rate Oxygen saturation Oxygen saturation in Arterial blood by Pulse oximetry Systolic blood pressure Diastolic blood pressure Provider Name and Address Organization Details Last Updated DateTime 3 157.48 cm 35.8 kg/m2 59275.1 g 94 /min 92 % 92 % 138 mm[Hg] 80 mm[Hg] Court De La Rosa [facility] 3 10:09:27 Date Recorded Body height Body mass index (BMI) Body weight Heart rate Oxygen saturation Oxygen saturation in Arterial blood by Pulse oximetry Systolic blood pressure Diastolic blood pressure Provider Name and Address Organization Details Last Updated DateTime 4 157.48 cm 29.2 kg/m2 52859.4 2 g 111 /min 98 % 98 % 134 mm[Hg] 84 mm[Hg] Patsy Estrada [facility] 4 10:35:07 Date Recorded Body height Body mass index (BMI) Body weight Systolic blood pressure Diastolic blood pressure Provider Name and Address Organization Details Last Updated DateTime 03/02/2024 157.48 cm 29.8 kg/m2 11887.56 g 128 mm[Hg] 80 mm[Hg] Court De La Rosa [facility] 4 14:46:35 Social History Question Answer Notes LastModified by Organizat ion Details LastModified Time Tobacco Smoking Status Current Every Day Smoker Not Available [facility] 07/26/2020 03:36:23 What Was The Date Of Your Most Recent Tobacco Screening? 03/02/2024 Information not available 03/02/2024 How Much Tobacco Do You Smoke? 1 PPD [email or web address] Information not available 02/10/2024 Do You Or Have You Ever Used Any Other Forms Of Tobacco Or Nicotine? No [email or web address] Information not available 05/24/2023 Sex: Unknown Functional Status None recorded. Mental Status None recorded. Family History Nothing Reported. Medical History No medical history recorded. Gynecological HistoryNo gynecological history recorded. Obstetrics History GPAL:G 0 P 0 0 0 0 Immunizations Vaccine Type Date Status Note Provider Nam e and Address Organization Details Recorded Time COVID-19 vaccine, vector-nr, rS-Ad26, PF, 0.5 mL 01/28/2021 completed Jennifer mcginnis [facility] 03/06/2022 08:36:41 Past Encounters Encounter ID Performer Location Encounter Start Date Encounter Closed Date Diagnosis/Indication Diagnosis SNOMED-CT Code Diagnosis ICD10 Code Diagnosis Note [id number] Otilia Santo NP, S [facility] [address] [place] [address],[place] [address] 03/19/2018 10:27:43 03/19/2018 16:04:47 Acute bronchitis 60294127 J20.9 Tobacco de pendence syndrome 04472812 F17.200 [id number] Daljit Irby DO [facility] [address] [facility] [address] 07/11/2018 11:15:15 07/11/2018 13:37:08 Asthma 758862856 J45.909 worse with this infection so will need pred taper Pneumonia 081931837 J18. 9 treated with abx [id number] Daljit Irby, [facility] [address] [facility],[place] [address] 10/05/2019 11:00:17 10/05/2019 11:21:04 Asthma 799583571 J45.909 has been stable and is ok here Carpal jonathan shoaib syndrome of right wrist 7363892178 23438 G56.01 will cont the ibuprof Temporoman dibular joint disorder 64992664 M26.609 will cont the ibuprof Screening mammography 24 016424 Z12.31 Adult heal th examination 052257772 Z00.00 Tobacco de pendence syndrome 19743826 F17.200 [id number] Daljit Irby, [facility] [address] [facility] [place] [address] 12/20/2021 10:25:58 12/20/2021 13:56:24 Chronic obstructive pulmonary disease 13718420 J44.9 we are going to begin her on trelegy will follow up in a few weeks samples of 200mg dose given Gastroesop hageal reflux disease 697387492 K21.9 seems stable Depressive disorder 3548 9007 F32.A follows her psychiatri st Multiple g astric ulcers 989120379 K25.9 had a signif icant bleed with hgb down to 7 we will order cbc and rechj uin 1 month Insomnia 251040764 G47.0 0 Panic disorder 618601403 F41.0 we will provide temporary lorazepam [id number] TANNER LOCKE [facility] Internal [facility] [address] [facility] [address] 12/27/2021 11:18:02 01/01/2022 08:30:58 Insomnia 576139500 G47.09 will fu if still having issues picking Moderate r ecurrent major depression 94579590 F33.1 will start on sertraline and resubmit seroquel dosage [id number] TANNER LOCKE [facility] Internal Medicine [address] [facility] [address] 12/29/2021 10:30:37 01/01/2022 12:14:24 Bipolar disorder 76263124 F31.0 stable Depressive disorder 3548 9007 F32.0 improved Anxiety 07874341 F41.1 improved [id number] Daljit Irby, [facility] [address] [facility],[place] [address] 01/19/2022 11:02:49 01/19/2022 11:47:03 Active or passive immunization [id number] Z23 will consider shingles and Tdap Panic disorder 341882754 F41.0 lorazepam was not too helpful Chronic ob structive pulmonary disease 76482426 J44.9 we are going to begin her on trelegy will follow up in a few weeks samples of 200mg dose givenseems to be helping she is breathing better Anxiety 92967301 F41.9 as above she is doing ok overall and id feeling betterwe discussed the poss of new med for the bipolar she will need to sidcuss with her psych (caplyta) Temporoman dibular joint disorder 93009386 M26.609 will cont the ibuprof [id number] [facility] [address] [facility],[place] [address] 03/23/2022 08:40:47 03/23/2022 14:10:34 Melena 0476335 K92.1 will start work up for melena Cobalamin deficiency 190 742345 E53.8 needs refill Insomnia 078889052 G47.0 9 stable on medication Moderate r ecurrent major depression 36424327 F33.1 refill Gastroesop hageal reflux disease 984649881 K21.00 increase to 40 mg of omeprazole until source of bleed can be determined [id number] [facility] [address] [facility],[place] [address] 07/25/2022 08:54:50 07/25/2022 12:22:55 Asthma 544738101 J45.40 will start on neb with solution Moderate r ecurrent major depression 48243979 F33.1 refill needed Insomnia 967564029 G47.0 9 stable on medication Iron defic iency anemia 89544119 D50.0 will refill for patientdid call it in but haven't gotten a refill request yet [id number] [facility] [address] [facility],[place] [address] 10/10/2022 13:26:14 10/10/2022 16:09:00 Injury of knee 581951205 S89.91XA will fu with repeat XR in two weeks Swelling o f knee joint 682107893 M25.462 will start dual treatment with pred and tramadol Chronic ob structive pulmonary disease 26280925 J41.8 given samplestre legy works really well for her [address] [facility] [address] [facility] [place] [address] 10/15/2022 14:34:37 10/15/2022 16:06:12 Injury of knee 515358286 S89.91XA still too much swelling US knee Swelling o f knee joint 420339053 M25.462 severe swellingun able to drain any fluid off the patientjus t bleeding Chronic ob structive pulmonary disease 52072199 J41.8 given samplestre legy works really well for her [id number] [facility] [address] [facility],[place] [address] 11/30/2022 13:40:24 11/30/2022 15:58:43 Moderate recurrent major depression 59732416 F33.1 as noted no major changes Screening mammography 24 695530 Z12.31 Prepatella r bursitis of right knee [id number] 99646 M70.41 MUST be seen by a competent ortho Infection of prepatellar bursa of right knee 7943027481 119228 M71.161 appears now to have a superficia l cellulitic appearance now spreading [id number] [facility] [address] [facility],[place] [address] 02/25/2023 11:05:10 02/25/2023 13:13:36 Asthma 694695694 J45.40 will start on neb with solution Exacerbati on of moderate persistent asthma 182201035 J45.41 will start on standard treatment Moderate r ecurrent major depression 57482941 F33.1 refill needed Urinary incontinence 165 961250 N39.42 [id number] [facility] [address] [facility],[place] [address] 05/24/2023 10:06:01 05/24/2023 11:27:12 Depressive disorder 53037964 F32.0 stable Acute bron chitis with bronchospasm 90759222 J20.9 will set up with prednisone + levoCOVID test negative Smoker 11000692 F17.200 will start on wellbutrin for smoking [id number] [address] [facility] [address] [facility],[place] [address] 02/10/2024 10:22:57 02/10/2024 14:11:54 Urinary incontinence 864211967 N39.42 will switch out medication and fu with kidney and urine check Depression screening 171 444090 Z13.31 negative score Cobalamin deficiency 190 799248 E53.8 needs refill Iron defic iency anemia 08565595 D50.0 will refill for patientdid call it in but haven't gotten a refill request yet Hyperlipidemia 48704258 E78.2 will set up with recheck blood work Chronic ob structive pulmonary disease 28661778 J41.8 given samplestre debora works really well for her Dyspnea 218431797 R06.00 will set up with pred taper [id number] [address] [facility] [address] [facility],[place] [address] 03/02/2024 14:34:00 03/03/2024 14:25:12 Depressive disorder 46251861 F32.0 F33.1 stable Mood disorder 26250703 F 31.0 stable Acute resp iratory failure 98341966 J96.00 stable Chronic ob structive pulmonary disease 16023342 J44.1 will f/u with pulm for evalordere d the PFT per pulm Health Concerns Section Related Observation LastModified by Organization Detai ls LastModified Time None Recorded Concern Status LastModified by Organization Details LastModified Time None Recorded Advance Directives Directive None Recorded Payers Encounter Date Sequence Insurance Name Policy Number Policy Chairez Covered Member ID Chairez Member ID Guarantor Name 11/30/2022 1 [place] Lissette A Sanches [id number] Lissette Sanches 02/25/2023 1 [place] Lissette A Sanches [id number] Lissette Malhotrabert 05/24/2023 1 [place] Lissette A Sanches [id number] Lissette Malhotrabert 02/10/2024 1 [place] Lissette A Sanches [id number] Lissette Malhotrabert 03/02/2024 1 [place] Lissette A Sanhces [id number] Lissette Sanches Notes Date Note Type Note Provider Name and Address Organization Details Recorded Time 3 text/html pt fell at home on oct 04 and has been seen by drs at ER and ortho multiple timesortho has seen her twice and was told to go to ER or pcp that they couldnt help her Daljit Irby, [address] [facility], [place], [address], [facility] 11/30/2022 14:19:27 3 text/html c/o asthma exacerbation pt still smoking no plans or desire to quithas been having increasing sob over the past mosdidn't call earlier because she wanted to see if it would get better on her own agreed to standard treatment for asthma exacerbation and XR to r/o pna since it has been going on for so long now upped her ativan; helps her sleepagreed to increase seroquel as well for the sleep and if it works will taper back the ativan needs another inhaler, lost hersgiven trelegy samples (low dose 100 mcg) has consistent incontinence; cannot hold it if she has to urinateleaks throughout the day without her noticing some times has been oigng on now for a least two years agreed to trial low dose oxybutyninwiremigio let me know if it is effective [address] [place], [address], [facility] 02/25/2023 11:58:55 3 text/html c/o pneumonia patient has hx of smokingrecurrent pneumonia, hx of COPDhaving exacerbation with probable bronchitis start on steriods and abx cont inhalers at home [address] [place], [address], [facility] 05/24/2023 10:31:11 4 text/html c/o bladder issues patient is having more bladder issues than normalthe oxybutynin isn't helping urinary incontinenceno triggerswill check her urine and kidneysalso in need of lab workagreed lab work today before she leaves will also change out med to myrbetriq to see if more effective is there is no trigger also have a COPD flare upwill set up with prednisoneprobably due to the pollen needs new nebulizer, given order for it [address] [place], [address], [facility] 02/10/2024 11:01:05 4 text/html hospital d/c the patient has been doing okay since she was d.c from the hospital the patient is currently on 2 L of oxygenshe uses it throughout the day and when she asleep does try it without it notes her oxygen drops but only to 92-24%on oxygen it is about 98-100% will need PFT per pulm, order sentneed PCP referral per pulm to be seen, referral sent no changes in medication patient feels okay besides being on oxygen, does not wish to continue on itwill have her do the PFT before deciding when to d/c, may wait until pulm approval using her inhalers correctly [address] [place], [address], [facility] 03/02/2024 15:15:46 OBGyn Episode No OBEpisode recorded.
== END 2024-10-05 11:35 | disposition home or self-care (01) ==
LOC: HO.XRAY 11:34
PROVIDERS: PCP Internal Medicine; Visit Provider Physician Assistant
DX: J20.9 Acute bronchitis, unspecified (principal)
CPT/HCPCS: 71046

== ENCOUNTER → 2024-10-05 11:40 | Outpatient (BNV) | payer OTHER, SELFPAY | PROVIDERS: PCP Internal Medicine; Visit Provider Radiology Diagnostic Radiology | DX: J20.9 Acute bronchitis, unspecified (principal) | CPT/HCPCS: 71046 ==

== ENCOUNTER 2024-11-01 12:56 | Emergency (ER) | payer OTHER, SELFPAY ==
--- NOTE | ~2024-11-01 | XR_ITS ---
CLINICAL HISTORY: atraumatic pain Radiographs of the left shoulder, 3 views Comparison: None Findings: No acute fracture or dislocation. 5 mm well corticated ossific fragment superior to the acromioclavicular joint, chronic. Narrowed acromiohumeral interval. Mild degenerative change. Bone mineralization is decreased. No soft tissue swelling. Impression: No acute findings. Narrowed acromiohumeral interval may indicate rotator cuff pathology. Mild degenerative change. This document has been electronically signed by: Rafaela Sanches MD on 11/01/2024 13:58:36
[2024-11-01 13:03] VITALS: BP 158/100; PULSE 94; RESP 18; TEMP 36.2; O2SAT 100; BMI 34.2
--- NOTE | 2024-11-01 13:04 | ED_ITS ---
HPI - Extremity Problem General Chief complaint: Extremity Problem Stated complaint: L shoulder pain Time Seen by Provider: 11/01/24 14:27 Source: patient Mode of arrival: ambulatory Limitations: no limitations History of Present Illness ED Provider: Sarahi Clifton PA-C HPI Narrative: Patient is a 63 year old assigned female at with a history of COPD and tobacco use presenting to the emergency department today with left shoulder pain. Patient states that over the last 2 months she has had worsening left shoulder pain. Patient states that she is having pain when she tries to raise her left arm. Patient denies any dizziness, lightheadedness, abdominal pain, nausea, vomiting, fever, chills, blurry vision, double vision, loss of vision, chest pain, difficulty breathing, shortness of breath, back pain, night sweats, pain with urination, increased urinary frequency, increased urinary urgency, blood in her urine or stool, syncope or a near syncopal episode, recent trauma or falls, bowel incontinence, bladder incontinence, or any other complaints at this time. Relieving factors: nothing Exacerbating factors: range of motion Associated symptoms: denies other symptoms Related Data Home Medications ?Medication ?Instructions ?Recorded ?Confirmed duloxetine 60 mg capsule,delayed 60 mg PO BID 09/01/21 02/15/24 release sprinkle lamotrigine 200 mg tablet 200 mg PO BEDTIME 09/01/21 02/15/24 ferrous sulfate 325 mg (65 mg 325 mg PO BEDTIME 02/14/22 02/15/24 iron) tablet ibuprofen 800 mg tablet 1 tab PO TID PRN Pain 02/14/22 02/15/24 quetiapine 25 mg tablet 1 tab PO BEDTIME 02/14/22 02/15/24 omeprazole 40 mg capsule,delayed 40 mg PO DAILY 07/03/22 02/15/24 release mirabegron 25 mg tablet,extended 25 mg PO DAILY 02/15/24 02/15/24 release 24 hr (Myrbetriq) Previous Rx's ?Medication ?Instructions ?Recorded lorazepam 0.5 mg tablet 0.5 mg PO BID PRN anxiety #10 tabs 09/30/21 albuterol sulfate 90 mcg/actuation 2 puff inhalation Q4-6H PRN 02/14/22 aerosol inhaler (ProAir HFA) shortness of breath or wheezing #8.5 grams albuterol sulfate 2.5 mg/3 mL 2.5 mg (3 mL) inhalation QID PRN 02/18/24 (0.083 %) solution for nebulization Shortness Of Breath Or Wheezing #180 mL amlodipine 5 mg tablet 5 mg PO DAILY #90 tabs 02/18/24 fluticasone furoate 100 1 inh inhalation DAILY #60 ea 02/18/24 mcg-vilanterol 25 mcg/dose inhalation powder (Breo Ellipta) nicotine 21 mg/24 hr daily 1 patch transdermal DAILY #28 ea 02/18/24 transdermal patch prednisone 20 mg tablet 20 mg PO DAILY #3 tabs 02/18/24 prednisone 20 mg tablet 20 mg PO DAILY 7 days #7 tabs 11/01/24 Allergies Allergy/AdvReac Type Severity Reaction Status Date / Time No Known Allergies Allergy Verified 11/01/24 13:07 Review of Systems Constitutional: Constitutional: Reports no additional constitutional complaints, Denies chills, Denies fever(s) and Denies night sweats Eyes: Eyes: Reports no additional eye complaints, Denies blurry vision, Denies change in vision, Denies diplopia, Denies eye discharge, Denies loss of vision and Denies eye pain ENT: Denies dizziness Cardiovascular: Cardiovascular: Reports no additional cardiovascular complaints, Denies chest pain, Denies lightheadedness, Denies Loss of Consciousness and Denies dyspnea Respiratory: Respiratory: Reports no additional respiratory complaints and Denies dyspnea Gastrointestinal: Gastrointestinal: Reports no additional gastrointestinal complaints, Denies abdominal pain, Denies melena, Denies hematochezia, Denies change in bowel habits and Denies change in stool character Genitourinary: Genitourinary: Denies hematuria, Denies urinary frequency, Denies dysuria, Denies urinary incontinence, Denies urinary hesitancy and Denies urinary urgency Musculoskeletal: Musculoskeletal: Reports no additional musculoskeletal complaints, Denies numbness and Denies tingling Comments: left shoulder pain with ROM Neurologic: Denies dizziness, Denies loss of vision, Denies numbness and Denies tingling Psychiatric: Psychiatric: Reports no additional psychiatric complaints Endocrine: Endocrine: Reports no additional endocrine complaints Hematologic/Lymphatic: Hematologic/Lymphatic: Reports no additional hematologic/lymphatic complaints Allergic/Immunologic: Allergic/Immunologic: Reports no additional allergic/immunologic complaints PMFSH Past Medical History Attestation statement: The following information was validated with the patient. Source: old records reviewed and nursing notes reviewed Medical History Mood disorder Tobacco use disorder Hx of head injury Anemia Panic anxiety syndrome Pelvic mass Anemia COPD (chronic obstructive pulmonary disease) Surgical History Hx of colonoscopy History of mandibular surgery H/O: hysterectomy Social History Social History Household Members: Spouse Housing: Apartment Do you presently have visiting nurse or other home services: Yes Alcohol intake: unknown Patient Tobacco Use Status: Current everyday Tobacco user Tobacco use type: Cigarette Cigarette Packs Per Day: 1 Cigarettes Per Day: 20.0 Years Smoked: 40 Second Hand Smoke Exposure: No Substance Use Type: Marijuana Advance Directives: No Advance Directives Information Provided: Yes Do you have a plan to hurt others: No Plan service: No Current occupational status: employed Physical Exam Vital Signs: Vital Signs: Last Vital Signs Temp 97.2 F 11/01/24 13:03 Pulse 94 11/01/24 13:03 Resp 18 11/01/24 13:03 BP 158/100 H 11/01/24 13:03 Pulse Ox 100 11/01/24 13:03 BMI result Body Mass Index 34.2 Const: General: cooperative, no acute distress, alert and awake Nutritional Appearance: well nourished Orientation/consciousness: patient oriented x3 Limitations: no limitations HEENT: Head: Yes normal to inspection and Yes atraumatic Ears: hearing grossly normal bilaterally and external ears normal General nose exam: Normal external nose present, no nasal discharge noted and no epistaxis Face and sinus: Yes normal facial exam, No abrasion and No laceration Mouth: Normal oral and palatal mucosa present, no drooling and no muffled voice Eyes: General: appearance normal, both eyes and all related structures Periorbital: periorbital findings normal Eyelids: Yes eyelids normal Conjunctivae: conjunctivae normal Pupils: Equal, round and reactive pupils present EOM: EOMs intact bilaterally Neck: Neck: Yes normal visual inspection, Yes full ROM and Yes no lymphadenopathy Chest: Chest palpation & inspection: normal inspection of the chest Resp: Effort & Inspection: normal respiratory effort and able to speak in complete sentences GI: Inspection: Yes normal to inspection Neuro: General: patient oriented x3, moves all extremities and CN's II-XI intact bilaterally Cranial nerves: Yes Equal, round and reactive pupils present Cognition (Neuro): normal cognition Extrem: Other: decreased ROM of the left shoulder secondary to pain General: Yes normal to inspection and Yes capillary refill normal Psych: Appearance: grossly normal Mental Status: mental status grossly normal Affect: normal affect Attitude: cooperative Thought process: Normal thought process present Thought content: Normal thought content present Insight: Good insight present (Psych) Course Course Course Narrative: This is an RME performed by Linden Johnston CNP: Additional HPI, ROS, PE not included below will be deferred to primary provider. Patient is a 63-year-old female who presents emergency department for evaluation of left posterior shoulder pain onset months ago but progressively worsening, now feels heaviness to the arm worsening with movement, intermittent tingling to the arm. Denies any precipitating injury. An appointment PCP in 2 days for initial evaluation. Plan: XR Medical Decision Making Medical Decision Making MDM Narrative: Patient is a 63 year old assigned female at with a history of COPD and tobacco use presenting to the emergency department today with left shoulder pain. Patient's physical exam was as noted in the physical exam portion of this note. Patient's left shoulder x-ray showed evidence of a rotator cuff injury. I explained my physical exam findings as well as all test results to the patient. I answered all questions asked by the patient. I stressed the importance of the patient taking her medication as directed (either prescribed or as the over the counter packaging recommends). I stressed the importance of the patient following up with her primary care provider and an orthopedic provider. I stressed the importance of the patient returning to the emergency department immediately if her symptoms were to worsen or if she were to develop any dizziness, shortness of breath, difficulty breathing, chest pain, blurry vision, loss of vision, nausea, vomiting, abdominal pain, fever, chills, back pain, or any other complaints. Patient verbalized agreement and understanding with this treatment plan and discharge. Differential Diagnosis Differential Diagnoses: The differential diagnosis associated with the presentation includes Rotator cuff injury Rotator cuff strain Rotator cuff sprain Admission/Observation Consideration of admission/observation: Escalation of care including admission/observation considered Patient would have been admitted to the hospital had her work up had any findings where hospital admission was appropriate and her clinical presentation warranted hospital admission. Independent Interpretation I performed an independent interpretation of an: Plain X-Ray Interpretation: My interpretation is in agreement with the radiologist's impression of this imaging study. CLINICAL HISTORY: atraumatic pain Radiographs of the left shoulder, 3 views Comparison: None Findings: No acute fracture or dislocation. 5 mm well corticated ossific fragment superior to the acromioclavicular joint, chronic. Narrowed acromiohumeral interval. Mild degenerative change. Bone mineralization is decreased. No soft tissue swelling. Impression: No acute findings. Narrowed acromiohumeral interval may indicate rotator cuff pathology. Mild degenerative change. This document has been electronically signed by: Rafaela Sanches MD on 11/01/2024 13:58:36 Dictated By: Rafaela Black MD Signed By: Electronically signed by Rafaela Black MD 11/01/24 2902 Radiology Impression Discussion of test interpretation with radiology: I have reviewed the radiologist's reading. Tests considered The following testing was considered but not selected: I considered obtaining a CBC, CMP, trop, EKG, and chest x-ray however, the patient's current clinical presentation does not warrant this. I discussed this with the patient who verbalized understanding and agreement. Discharge Plan Discharge Clinical Impression: Injury of left rotator cuff Patient Disposition: Home, Self-Care Instructions: Rotator Cuff Injury (ED), Rotator Cuff Injury Exercises (DC) Additional Instructions: Your left shoulder x-ray shows evidence of a rotator cuff injury. A sling would freeze your shoulder and ultimately make the pain worse. Follow up with your primary care provider and an orthopedic provider. Return to the emergency department immediately if your symptoms worsen or if you develop any dizziness, shortness of breath, difficulty breathing, chest pain, blurry vision, loss of vision, nausea, vomiting, abdominal pain, fever, chills, back pain, or any other complaints. Prescriptions: New prednisone 20 mg tablet 20 mg PO DAILY 7 Days Qty: 7 0RF No Action lorazepam 0.5 mg tablet 0.5 mg PO BID PRN (Reason: anxiety) Qty: 10 0RF lamotrigine 200 mg Tablet 200 mg PO BEDTIME duloxetine 60 mg Capsule, Delayed Rel Sprinkle 60 mg PO BID quetiapine 25 mg tablet 1 tab PO BEDTIME ibuprofen 800 mg tablet 1 tab PO TID PRN (Reason: Pain) ferrous sulfate 325 mg (65 mg iron) tablet 325 mg PO BEDTIME albuterol sulfate [ProAir HFA] 90 mcg/actuation HFA aerosol inhaler 2 puff inhalation Q4-6H PRN (Reason: shortness of breath or wheezing) Qty: 8.5 0RF omeprazole 40 mg capsule,delayed release(DR/EC) 40 mg PO DAILY Rx Instructions: After 8 weeks to take it daily Myrbetriq 25 mg tablet extended release 24 hr 25 mg PO DAILY amlodipine 5 mg Tablet 5 mg PO DAILY Qty: 90 0RF Protocol: Hold for SBP< HOLD for SBP < : 90 prednisone 20 mg tablet 20 mg PO DAILY Qty: 3 0RF nicotine 21 mg/24 hr patch 24 hour 1 patch transdermal DAILY Qty: 28 1RF albuterol sulfate 2.5 mg /3 mL (0.083 %) solution for nebulization 2.5 mg inhalation QID PRN (Reason: Shortness Of Breath Or Wheezing) Qty: 180 1RF fluticasone furoate-vilanterol [Breo Ellipta] 100-25 mcg/dose blister with device 1 inh inhalation DAILY Qty: 60 2RF Referrals: [facility] [Provider Group] (Call to establish and follow up with an orthopedic provider.) Daljit Irby MD [Primary Care Provider] - Print Language: Tajik
--- OUTSIDE RECORDS SUMMARY | 2024-11-01 14:36 | XMS_ITS | Data Portability ---
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) : MDM LOW MUST MEET 2 OF [...] THOROUGHLY DOCUMENT ALL OF THE ELEMENTS COVERED [email or web address] Not available 11/30/2022 14:18:40 Plan of Treatment Reminders Order Date Submit Date Provider Last Modified By Organization Details Last Modified Time Details Appointments FOLLOW UP 15 2024 02:30P TANNER CANO Not available Not available Not available Lab lipid panel, serum 2023 024 [facility], [address] [place] [address], [place], [address], 02/10/2024 11:05:54 CBC w/ auto diff 2023 024 [facility], [address] [place] [address], [address], 02/10/2024 11:05:54 CMP, serum or plasma 2023 024 [facility], [address] [place] [address], [place], [address], 02/11/2024 11:22:06 urinalysi s complete, reflex culture 2023 024 [facility], [address] [place] [address], [address], 02/10/2024 11:01:07 iron + TIBC + ferritin, serum 2023 024 [facility], [address] [place] [address], [address], 02/10/2024 11:05:54 vitamin B12 + folate, serum or blood 2023 024 [facility], [address] [place] [address], [address], 02/10/2024 11:05:54 homocyste ine, serum or plasma 2023 024 [facility], [address] [place] [address], [place], [address], 02/12/2024 11:17:29 TSH + free T4, serum 2023 024 [facility], [address] [place] [address], [address], 02/10/2024 11:06:30 Referral orthopedi c surgeon referral - PLEASE SEE RADHIKA PLEASE SEE PHOTO PROVIDED recenty started on cephalexi nhas been to ER twice has been partially drained twice 2022 023 [email or web address] Luis MD, [address] [place], [address], 12/05/2022 08:13:52 pulmonolo gist referral 2023 024 sachin Sullivan MD, [address] [place] [address] [place], [address], 03/03/2024 14:25:12 Procedures None recorded. Surgeries None recorded. Imaging MAMMO, screening , digital, bilateral 2022 023 [facility] (Imaging), [address] [place], [address], 12/14/2022 08:28:35 XR, chest, 2 view 2022 023 [facility] (Imaging), [address] [place], [address], 03/11/2023 08:40:25 PFT, complete - [id number] 1 03/04/24-2023 024 [facility] Central Scheduling, [address] [place], [address], 03/06/2024 08:41:34 Medication Orders cephalexi n 500 mg capsule 2022 023 [email or web address] [facility], [address] [facility] [place], [address], 12/19/2022 12:15:48 prednison e 10 mg tablet 2022 023 [email or web address] [facility], [address] [place], [address], 02/10/2024 10:32:59 Zithromax Z-Tim 250 mg tablet 2022 023 [email or web address] [facility], [address] [place], [address], 04/08/2023 14:12:12 albuterol sulfate HFA 90 mcg/actua tion aerosol inhaler 2022 023 [email or web address] [facility], [address] [place], [address], 03/24/2024 14:51:15 lorazepam 0.5 mg tablet 2022 023 [facility] [address] [facility] [place], [address], 02/25/2023 11:51:57 oxybutyni n chloride ER 5 mg tablet,ex tended release 24 hr 2022 023 [email or web address] [facility] [address] [place], [address], 02/10/2024 10:50:31 Wellbutri n XL 150 mg 24 hr tablet, extended release 2022 023 [email or web address] [facility] [address] [facility] [place], [address], 01/03/2024 09:07:42 prednison e 10 mg tablet 2022 023 [facility] [address] [place], [address], 02/10/2024 10:32:59 levofloxa omayra 500 mg tablet 2022 023 [address] [facility] [address] [place], [address], 02/10/2024 10:32:44 duloxetin e 60 mg capsule,d elayed release 2022 023 [facility], [address] [place], [address], 05/24/2023 10:18:19 Myrbetriq 25 mg tablet,ex tended release 2023 024 [facility], [address] [place], [address], 02/10/2024 10:54:00 prednison e 10 mg tablet 2023 024 [facility], [address] [place], [address], 02/10/2024 10:54:41 Patient TargetsNo targets recorded. Patient Instructions Encounter Date Encounter Id Patient Instructions Last Modified By Organization Details Last Modified Time 11/30/2022 [id number] mammogram: about this test [email or web address] Not available 11/30/2022 14:16:31 Reason for Referral Orthopedic Surgeon Referral for Prepatellar bursitis of right knee PLEASE SEE RADHIKA PLEASE SEE PHOTO PROVIDED recenty started on cephalexinhas been to ER twice has been partially drained twice Referring Physician: Daljit Irby, Internal Medicine, Encounter Date: 11/30/2022 Sld Educational Aide Referral for A cute respiratory failure needs PCP referral for evaluation, seen at [facility] Referring Physician: Ginny Purcell, Internal Medicine, Encounter Date: 03/02/2024 Results Created Date Observation Date Name Description Value Unit Range Abnormal Flag Note LastModifiedBy Organization Detail LastModifiedTime 05/31/2005/31/2023 XR, chest , 2 view No observ ation record ed. [email or web address] [facility] (Medical Records) [address] [place], [address], 05/31/2023 11:13:40 02/15/20 24 02/15/2024 XR, chest , 1 view No observ ation record ed. [email or web address] [facility] (Medical Records) [address] [place], [address], 02/18/2024 08:30:04 02/16/20 24 02/16/2024 XR, chest , 1 view No observ ation record ed. [email or web address] [facility] (Medical Records) [address] [place], [address], 02/18/2024 08:30:20 10/07/19 25 10/05/2024 XR, chest , 2 view No observ ation record ed. [email or web address] (Medical Records) [address] [place], [address], 10/07/2024 09:20:31 11/01/19 25 11/01/2024 imagi ng/di agnos tic resul t No observ ation record ed. [facility] (Medical Records) [address] [place], [address], 11/01/2024 14:01:13 Result Notes None recorded. Problems Name Problem SNOMED Code Status Onset Date Resolution Date Notes Provider Name and Address Organization Details Recorded Time Temporoma ndibular joint disorder 00661883 Active 2019 Daljit Irby DO [address] [place] [address], [address], [facility] 0 11:11:51 Carpal tunnel syndrome of right wrist 312385126754 108 Active 2019 Daljit Irby DO [address] [place] [address], [address], [facility] 0 11:12:02 Chronic obstructi ve pulmonary disease 95830089 Active 2021 Daljit Irby DO [address] [place] [address], [address], [facility] 2 10:56:45 Multiple gastric ulcers 581039906 Active 2021 Daljit Irby DO [address] [place] [address], [address], [facility] 2 10:57:21 Insomnia 614614496 Active 2021 Daljit Irby DO [address] [place] [address], [address], [facility] 2 10:59:47 Panic disorder 638773762 Active 2021 Daljit Irby DO [address] [place] [address], [address], [facility] 2 11:01:07 Moderate recurrent major depressio n 41986340 Active 2021 TANNER LOCKE [address] [place] [address], [address], [facility] 2 11:43:50 Anxiety 92672188 Active 2021 TANNER LOCKE [address] [place], [address], [facility] 2 12:22:43 Melena 1551140 Active 2021 TANNER LOCKE [address] [place], [address], [facility] 2 10:33:58 Cobalamin deficienc y 143154466 Active 2021 TANNER LOCKE [address] [place], [address], [facility] 2 10:34:46 Iron deficienc y anemia 52673141 Active 2021 TANNER LOCKE [address] [place] [address], [address], [facility] 2 12:03:20 Injury of knee 714456325 Active 2022 TANNER LOCKE [address] [place] [address], [address], [facility] 3 13:56:04 Injury of knee 682071478 Active 2022 TANNER LOCKE [address] [place] [address], [address], [facility] 3 13:56:09 Swelling of knee joint 476711194 Active 2022 TANNER LOCKE [address] [place], [address], [facility] 3 13:57:51 Infected bursa 302197485 Active 2022 TANNER LOCKE [address] [place] [address], [address], [facility] 3 10:28:39 Hematoma of right lower leg 613586325884 54730 Active 2022 TANNER LOCKE [address] [place] [address], [address], [facility] 3 10:29:45 Prepatell ar bursitis of right knee 769819686063 100 Active 2022 Daljit Irby, DO [address] [place] [address], [address], [facility] 3 14:11:50 Infection of prepatell ar bursa of right knee 981528302744 9105 Active 2022 Daljit Irby, DO [address] [place] [address], [address], [facility] 3 14:12:07 Exacerbat ion of moderate persisten t asthma 941289238 Active 2022 TANNER LOCKE [address] [place] [address], [address], [facility] 3 11:47:09 Urinary incontine nce 651292953 Active 2022 TANNER LOCKE [address] [place] [address], [address], [facility] 3 11:48:56 Acute bronchiti s with bronchosp asm 71952956 Active 2022 TANNER LOCKE [address] [place] [address], [address], [facility] 3 10:18:40 Smoker 67050945 Active 2022 TANNER LOCKE [address] [place] [address], [address], [facility] 3 10:20:27 Pneumonia 070405960 Active 2022 TANNER LOCKE [address] [place] [address], [address], [facility] 3 11:11:32 Tardive dyskinesi a 340205473 Active 2023 TANNER LOCKE [address] [place] [address], [address], [facility] Internal [facility] 4 09:52:31 Hyperlipi demia 08482294 Active 2023 TANNER LOCKE [address] [place] [address], [address], [facility] 4 10:52:48 Dyspnea 338580310 Active 2023 TANNER LOCKE [address] [place] [address], [address], [facility] 4 10:54:03 Acute respirato ry failure 59835186 Active 2023 TANNER LOCKE [address] [place] [address], [address], [facility] 4 15:06:47 Mood disorder 57023991 Active 2023 TANNER LOCKE [address] [place] [address], [address], [facility] 4 15:11:46 Acute bronchiti s 41133309 Active 2024 TANNER LOCKE [address] [place] [address], [address], [facility] 5 10:23:01 Asthma 340013968 Active 2017 [facility] 8 10:31:25 Gastroeso phageal reflux disease 271246311 Active 2017 Stacie mcginnis [facility] 8 10:31:31 Bipolar disorder 97135037 Active 2017 Otilia Santo NP, S [address] [place] [address], [address], [facility] 8 10:56:03 Depressiv e disorder 79899902 Active 2017 Otilia Santo NP, S [address] [place] [address], [address], [facility] 8 10:56:12 Problem Notes None recorded. Procedures Surgical History Date Name Laterality Status Provider Name and Address Organization Details Recorded Time Colonoscopy completed Itzel Currie [facility] 10/05/2019 11:11:27 Imaging Results Imaging Date Name Status LastModified by Organiz ation Details LastModified Time 05/31/2023 XR, chest, 2 view completed [email or web address] [facility] (Medical Records) [address] [place], [address], 05/31/2023 11:13:40 02/15/2024 XR, chest, 1 view completed [address] (Medical Records) [address] [place], [address], 02/18/2024 08:30:04 02/16/2024 XR, chest, 1 view completed [address] (Medical Records) [address] [place], [address], 02/18/2024 08:30:20 10/05/2024 XR, chest, 2 view completed [address] (Medical Records) [address] [place], [address], 10/07/2024 09:20:31 11/01/2024 imaging/diag nostic result active [facility] (Medical Records) [address] [place], [address], 11/01/2024 14:01:13 Procedure Notes None recorded. Medical Equipment None [...] (0.083 %) solution for nebulizatio n INHALE 3 ML BY NEBULIZAT ION 3 TIMES A DAY FOR 30 DAYS active Not Available Not Available No [...] completed Not Available Not Available Not Available albuterol sulfate HFA 90 mcg/actuati on aerosol inhaler INHALE 2 PUFFS INTO THE LUNGS EVERY 4 HOURS NEEDED active Not Available Not Available No t Available Vitamin B-12 1,000 mcg tablet TAKE 1 TABLET BY MOUTH EVERY DAY 02/09 completed Not Available Not Available Not Available oxycodone 5 mg tablet TAKE 1 [...] 1 CAPSULE BY MOUTH TWICE A DAY active Not Available Not Available No t Available Lamictal 10/05 completed Not Available Not Available [...] Not Available Not Available No t Available Breo Ellipta 100 mcg-25 mcg/dose powder for inhalation INHALE 1 PUFF EVERY DAY BY INHALATIO N ROUTE active Not Available Not Available No t Available Rexulti 0.5 mg tablet Take 1 tablet every day by oral route for 30 days. 02/09 completed Not Available Not Available Not Available Trelegy Ellipta 100 mcg-62.5 mcg-25 mcg powder for [...] Updated DateTime 3 157.48 cm 36.5 kg/m2 42969.9 6 g 90 /min 97 % 97 % 142 mm[Hg] 90 mm[Hg] Daljit JeronimoMatthew Irby, DO [address] [place], [address] [place] [address] Internal [facility] 3 13:49:13 Date Recorded Body height Body mass index (BMI) Body weight Heart rate Oxygen saturation Oxygen saturation in Arterial blood by Pulse oximetry Systolic blood pressure Diastolic blood pressure Provider Name and Address Organization Details Last Updated DateTime 3 157.48 cm 35.8 kg/m2 07130.1 g 86 /min 92 % 92 % 148 mm[Hg] 80 mm[Hg] Court De La Rosa [facility] Internal [facility] 3 11:32:57 Date Recorded Body height Body mass index (BMI) Body weight Heart rate Oxygen saturation Oxygen saturation in Arterial blood by Pulse oximetry Systolic blood pressure Diastolic blood pressure Provider Name and Address Organization Details Last Updated DateTime 3 157.48 cm 35.8 kg/m2 74218.1 g 94 /min 92 % 92 % 138 mm[Hg] 80 mm[Hg] Court De La Rosa [facility] Internal [facility] 3 10:09:27 Date Recorded Body height Body mass index (BMI) Body weight Heart rate Oxygen saturation Oxygen saturation in Arterial blood by Pulse oximetry Systolic blood pressure Diastolic blood pressure Provider Name and Address Organization Details Last Updated DateTime 4 157.48 cm 29.2 kg/m2 25379.4 2 g 111 /min 98 % 98 % 134 mm[Hg] 84 mm[Hg] Patsy Estrada [facility] 4 10:35:07 Date Recorded Body height Body mass index (BMI) Body weight Systolic blood pressure Diastolic blood pressure Provider Name and Address Organization Details Last Updated DateTime 03/02/2024 157.48 cm 29.8 kg/m2 59060.56 g 128 mm[Hg] 80 mm[Hg] Court De La Rosa [facility] Internal [facility] 4 14:46:35 Social History Question Answer Notes LastModified by Organizat ion Details LastModified Time Tobacco Smoking Status Current Every Day Smoker Not Available [facility] 07/26/2020 03:36:23 What Was The Date Of Your Most Recent Tobacco Screening? 03/02/2024 Information not available 03/02/2024 How Much Tobacco Do You Smoke? 1 PPD [email or web address] Information not available 02/10/2024 Do You Or Have You Ever Used Any Other Forms Of Tobacco Or Nicotine? No [email or web address] Information not available 05/24/2023 Sex: Unknown Functional Status None recorded. Mental Status None recorded. Family History Nothing Reported. Medical History No medical history recorded. Gynecological HistoryNo gynecological history recorded. Obstetrics History GPAL:G 0 P 0 0 0 0 Immunizations Vaccine Type Date Status Note Provider Nam e and Address Organization Details Recorded Time COVID-19 vaccine, vector-nr, rS-Ad26, PF, 0.5 mL 01/28/2021 completed Jennifer Melendez [facility] 03/06/2022 08:36:41 Past Encounters Encounter ID Performer Location Encounter Start Date Encounter Closed Date Diagnosis/Indication Diagnosis SNOMED-CT Code Diagnosis ICD10 Code Diagnosis Note [id number] Otilia Santo NP, S [facility] [address] [place] [address] 03/19/2018 10:27:43 03/19/2018 16:04:47 Acute bronchitis 02802799 J20.9 Tobacco de pendence syndrome 86188565 F17.200 [id number] [address] 07/11/2018 11:15:15 07/11/2018 13:37:08 Asthma 173780039 J45.909 worse with this infection so will need pred taper Pneumonia 540475308 J18. 9 treated with abx [id number] Daljit Irby [facility] Internal [address] [address] 10/05/2019 11:00:17 10/05/2019 11:21:04 Asthma 684329320 J45.909 has been stable and is ok here Carpal jonathan shoaib syndrome of right wrist 1822930209 73446 G56.01 will cont the ibuprof Temporoman dibular joint disorder 46747818 M26.609 will cont the ibuprof Screening mammography 24 588994 Z12.31 Adult heal th examination 675776310 Z00.00 Tobacco de pendence syndrome 19862508 F17.200 [id number] Daljit Irby DO [facility] [address] [facility] [place] [address] 12/20/2021 10:25:58 12/20/2021 13:56:24 Chronic obstructive pulmonary disease 08649683 J44.9 we are going to begin her on trelegy will follow up in a few weeks samples of 200mg dose given Gastroesop hageal reflux disease 145064212 K21.9 seems stable Depressive disorder 3548 9007 F32.A follows her psychiatri st Multiple g astric ulcers 343002797 K25.9 had a signif icant bleed with hgb down to 7 we will order cbc and rechj uin 1 month Insomnia 996829657 G47.0 0 Panic disorder 773342006 F41.0 we will provide temporary lorazepam [id number] TANNER LOCKE [facility] [address] [facility] [place] [address] 12/27/2021 11:18:02 01/01/2022 08:30:58 Insomnia 375949526 G47.09 will fu if still having issues picking Moderate r ecurrent major depression 29681703 F33.1 will start on sertraline and resubmit seroquel dosage [id number] TANNER LOCKE [facility] [address] [facility] [address] [place] [address] 12/29/2021 10:30:37 01/01/2022 12:14:24 Bipolar disorder 99408594 F31.0 stable Depressive disorder 3548 9007 F32.0 improved Anxiety 21803844 F41.1 improved [id number] Daljit Irby DO [facility] [address] [facility] [place] [address] 01/19/2022 11:02:49 01/19/2022 11:47:03 Active or passive immunization 129092338 Z23 will consider shingles and Tdap Panic disorder 849793515 F41.0 lorazepam was not too helpful Chronic ob structive pulmonary disease 99177940 J44.9 we are going to begin her on trelegy will follow up in a few weeks samples of 200mg dose givenseems to be helping she is breathing better Anxiety 95494648 F41.9 as above she is doing ok overall and id feeling betterwe discussed the poss of new med for the bipolar she will need to sidcuss with her psych (caplyta) Temporoman dibular joint disorder 48334016 M26.609 will cont the ibuprof [id number] TANNER LOCKE [facility] [address] [facility] [place] [address] 03/23/2022 08:40:47 03/23/2022 14:10:34 Melena 2994859 K92.1 will start work up for melena Cobalamin deficiency 190 880604 E53.8 needs refill Insomnia 869447689 G47.0 9 stable on medication Moderate r ecurrent major depression 89243982 F33.1 refill Gastroesop hageal reflux disease 868086584 K21.00 increase to 40 mg of omeprazole until source of bleed can be determined [id number] TANNER LOCKE [facility] [address] [facility] [place] [address] 07/25/2022 08:54:50 07/25/2022 12:22:55 Asthma 330582383 J45.40 will start on neb with solution Moderate r ecurrent major depression 73632777 F33.1 refill needed Insomnia 506348646 G47.0 9 stable on medication Iron defic iency anemia 44200794 D50.0 will refill for patientdid call it in but haven't gotten a refill request yet [id number] TANNER LOCKE [facility] [address] [facility] [place] [address] 10/10/2022 13:26:14 10/10/2022 16:09:00 Injury of knee 454983956 S89.91XA will fu with repeat XR in two weeks Swelling o f knee joint 609864358 M25.462 will start dual treatment with pred and tramadol Chronic ob structive pulmonary disease 15562674 J41.8 given samplesmayela montoyanathalie works really well for her [id number] Diana Rivers [facility] [address] [facility] [address] [place] [address] 10/15/2022 14:34:37 10/15/2022 16:06:12 Injury of knee 762174602 S89.91XA still too much swelling US knee Swelling o f knee joint 801517751 M25.462 severe swellingun able to drain any fluid off the patientjus t bleeding Chronic ob structive pulmonary disease 43527147 J41.8 given samplestre debora works really well for her [id number] [facility] [address] [facility] [address] [place] [address] 11/30/2022 13:40:24 11/30/2022 15:58:43 Moderate recurrent major depression 13441288 F33.1 as noted no major changes Screening mammography 24 841403 Z12.31 Prepatella r bursitis of right knee 5359597219 96724 M70.41 MUST be seen by a competent ortho Infection of prepatellar bursa of right knee 6162020357 678205 M71.161 appears now to have a superficia l cellulitic appearance now spreading [id number] TANNER LOCKE [facility] [address] [facility] [place] [address] 02/25/2023 11:05:10 02/25/2023 13:13:36 Asthma 155184694 J45.40 will start on neb with solution Exacerbati on of moderate persistent asthma 869663904 J45.41 will start on standard treatment Moderate r ecurrent major depression 67671959 F33.1 refill needed Urinary incontinence 165 557738 N39.42 [id number] TANNER LOCKE [facility] [address] [facility] [address],[place] [address] 05/24/2023 10:06:01 05/24/2023 11:27:12 Depressive disorder 55321934 F32.0 stable Acute bron chitis with bronchospasm 63245276 J20.9 will set up with prednisone + levoCOVID test negative Smoker 29545047 F17.200 will start on wellbutrin for smoking [id number] TANNER LOCKE [facility] [address] [facility],[place] [address] 02/10/2024 10:22:57 02/10/2024 14:11:54 Urinary incontinence 645303727 N39.42 will switch out medication and fu with kidney and urine check Depression screening 171 549121 Z13.31 negative score Cobalamin deficiency 190 123782 E53.8 needs refill Iron defic iency anemia 05812265 D50.0 will refill for patientdid call it in but haven't gotten a refill request yet Hyperlipidemia 10632862 E78.2 will set up with recheck blood work Chronic ob structive pulmonary disease 39863168 J41.8 given samplesmayela cazares works really well for her Dyspnea 744029078 R06.00 will set up with pred taper [id number] TANNER LOCKE [facility] [address] [facility],[place] [address] 03/02/2024 14:34:00 03/03/2024 14:25:12 Depressive disorder 63453435 F32.0 F33.1 stable Mood disorder 69511450 F 31.0 stable Acute resp iratory failure 56542354 J96.00 stable Chronic ob structive pulmonary disease [id number] J44.1 will f/u with pulm for evalordere d the PFT per pulm Health Concerns Section Related Observation LastModified by Organization Detai ls LastModified Time None Recorded Concern Status LastModified by Organization Details LastModified Time None Recorded Advance Directives Directive None Recorded Payers Encounter Date Sequence Insurance Name Policy Number Policy Chairez Covered Member ID Chairez Member ID Guarantor Name 11/30/2022 1 [place] [facility] Lissette Sanches [id number] Lissette Sanches 02/25/2023 1 [place] [facility] Lissette Sanches [id number] Lissette Sanches 05/24/2023 1 [place] [facility] Lissette Sanches [id number] Lissette Sanches 02/10/2024 1 [place] [facility] Lissette Sanches [id number] Lissette Sanches 03/02/2024 1 [place] [facility] Lissette Sanches [id number] Lissette Sanches Notes Date Note Type Note Provider Name and Address Organization Details Recorded Time 3 text/html pt fell at home on oct 04 and has been seen by drs at ER and ortho multiple timesortho has seen her twice and was told to go to ER or pcp that they couldnt help her Daljit Irby, [address] [place], [address], [facility] 11/30/2022 14:19:27 3 text/html c/o [...] two years agreed to trial low dose oxybutyninwill let me know if it is effective [address] [place], [address], [facility] 02/25/2023 11:58:55 3 text/html c/o pneumonia patient has hx of smokingrecurrent pneumonia, hx of COPDhaving exacerbation with probable bronchitis start on steriods and abx cont inhalers at home [address] [place], [address], [facility] 05/24/2023 10:31:11 4 text/html c/o [...] given order for it [address] [place], [id number], [facility] 02/10/2024 11:01:05 4 text/html hospital [...] using her inhalers correctly [address] [place], [address], [facility] 03/02/2024 15:15:46 OBGyn Episode No OBEpisode recorded.
[2024-11-01 15:28] VITALS: BP 158/100; PULSE 94; RESP 18; TEMP 36.2; O2SAT 100
== END 2024-11-01 15:29 | disposition home or self-care (01) ==
PROVIDERS: Emergency Provider Emergency Medicine; PCP Internal Medicine
DX: S46.002A Unspecified injury of muscle(s) and tendon(s) of the rotator cuff of left shoulder, initial encounter (principal); X58.XXXA Exposure to other specified factors, initial encounter; Y93.9 Activity, unspecified; Y92.9 Unspecified place or not applicable; Y99.8 Other external cause status
CPT/HCPCS: 73030; 99282; 99283

== ENCOUNTER → 2024-11-01 13:07 | Outpatient (BNV) | payer OTHER, SELFPAY | PROVIDERS: PCP Internal Medicine; Visit Provider Radiology Diagnostic Radiology | DX: M25.512 Pain in left shoulder (principal) | CPT/HCPCS: 73030 ==

== ENCOUNTER 2024-12-15 07:54 | Outpatient (AMB) | payer OTHER, SELFPAY ==
--- NOTE | 2024-12-15 08:16 | MHC.OFFVIS ---
Vital Signs 12/15/24 08:21 Height 5 ft 2 in Weight 186 lb BMI 34.0 Handedness Left Intake Visit Reasons: Newprob-left shoulder pain Intake Note: Lissette is a 63 year old left hand dominant female who presents today for a evaluation of her left shoulder pain. Patient reports ongoing pain for about 5 months. She states that her pain is on the posterior aspect of the shoulder and sometimes radiates up to her neck. Patient notices that her pain is worse when she is doing laying on her side and reaching her back. She states that Mortrin is not giving her relief. Allergies No Known Allergies Allergy (Verified 11/01/24 13:07) HPI HPI Newprob-left shoulder pain: Details: Ms. Sanches is a 63-year-old left-hand dominant female who presents to the office today for evaluation of atraumatic left shoulder pain for the past 5 months. She reports that the pain is mostly located on the posterior aspect of the shoulder and points to over the scapular region. She also reports that she has pain that radiates to her neck and tingling sensation in all digits. She reports difficulty with turning her head to the right side with reproduction of symptoms. She was taking Motrin which gave her relief for a short period of time but is no longer working. [facility] Medical History Mood disorder Tobacco use disorder Hx of head injury Anemia Panic anxiety syndrome Pelvic mass Anemia COPD (chronic obstructive pulmonary disease) Surgical History Hx of colonoscopy History of mandibular surgery H/O: hysterectomy Social History (Updated 12/15/24 @ 08:20 by Foreign Sullivan) Household Members: Spouse Housing: Apartment Do you presently have visiting nurse or other home services: Yes Alcohol intake: unknown Patient Tobacco Use Status: Current everyday Tobacco user Tobacco use type: Cigarette Cigarette Packs Per Day: 1 Cigarettes Per Day: 20.0 Years Smoked: 40 Second Hand Smoke Exposure: No Substance Use Type: Marijuana service: No Current occupational status: employed Current occupation: [employer]/ left hand dominant Review of Systems Const All systems reviewed & are unremarkable except as noted in HPI and below Physical Exam Vital Signs: BMI result Body Mass Index 34.0 Const General: cooperative, healthy appearing and no acute distress Resp Effort & Inspection: normal respiratory effort and able to speak in complete sentences Cardio Rate: regular rate Peripheral pulses: Peripheral pulses 2+ throughout Skin Lesions: no lesions Rashes: no rashes Extrem Other: Right shoulder: Forward flexion and abduction lacking 15 degrees. Passive ER to end range. Pain with cross-body reach. 4/5 strength with empty can. Negative drop arm. Assessment & Plan Assessment & Plan (1) Cervical radiculopathy: Code(s): M54.12 - Radiculopathy, cervical region Category: Medical (2) Myofascial pain: Code(s): M79.18 - Myalgia, other site Category: Medical Plan Ms. Sanches is a 63-year-old left-hand dominant female who presents to the office today for evaluation of atraumatic left shoulder pain for the past 5 months. She reports that the pain is mostly located on the posterior aspect of the shoulder and points to over the scapular region. She also reports that she has pain that radiates to her neck and tingling sensation in all digits. She reports difficulty with turning her head to the right side with reproduction of symptoms. She was taking Motrin which gave her relief for a short period of time but is no longer working. While in the office today, the patient reports that she had a short trial of prednisone that was given to her by the emergency department. She reports that during the time in which she was taking less her symptoms had resolved. I have sent a refill of this medication to the pharmacy. I will place an order for an EMG study of the left upper extremity to further evaluate the integrity of the nerves. She will follow up with Dr. Walker for further evaluation and treatment of the left upper extremity. X-rays of the left shoulder which were obtained that were obtained on 11/01/2024 were reviewed by me, Teri Barragan PA-C, revealed no acute fracture dislocation. Medications: Refilled prednisone 20 mg PO DAILY 3 tabs 0RF Coding Level of Care Code Est Pt Level 3 (38070) Diagnoses Cervical radiculopathy M54.12 Myofascial pain M79.18
[2024-12-15 08:21] VITALS: BMI 34.0
== END 2024-12-15 08:50 | disposition home or self-care (01) ==
LOC: HO.HOS 07:55
PROVIDERS: PCP Internal Medicine; Visit Provider Physician Assistant
DX: M54.12 Radiculopathy, cervical region (principal); M79.18 Myalgia, other site
CPT/HCPCS: 99213

== ENCOUNTER → 2024-12-15 07:54 | Outpatient (BNVA) | payer OTHER, SELFPAY | PROVIDERS: PCP Internal Medicine; Visit Provider Physician Assistant ==

== ENCOUNTER 2024-12-24 07:27 | Outpatient (REF) | payer OTHER, SELFPAY ==
--- OUTSIDE RECORDS SUMMARY | 2024-12-24 07:30 | XMS_ITS | Data Portability ---
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 Lab lipid panel, serum 2023 [facility], [address] [place] [address], [address], 4 11:05:54 CBC w/ auto diff 2023 [facility], [address] [place] [address], [address], 4 11:05:54 CMP, serum or plasma 2023 024 [facility], [address] [place] [address], [address], 4 11:22:06 urinalysis complete, reflex culture 2023 024 [facility], [address] [place] [address], [address], 4 11:01:07 iron + TIBC + ferritin, serum 2023 024 [facility], [address] [place] [address], [address], 4 11:05:54 vitamin B12 + folate, serum or blood 2023 024 [facility], [address] [place] [address], [address], 4 11:05:54 homocystei ne, serum or plasma 2023 024 [facility], [address] [place] [address], [address], 4 11:17:29 TSH + free T4, serum 2023 024 [facility], [address] [place] [address], [address], 4 11:06:30 Referral pulmonolog ist referral 2023 024 [email or web address] Supa Sullivan MD, [address] [place] [address] [place], [address], 4 14:25:12 orthopedic surgeon referral - PLEASE SEE RADHIKA PLEASE SEE PHOTO PROVIDED recenty started on cephalexin has been to ER twice has been partially drained twice 2022 023 [email or web address] Luis MD, [address] [facility], [address], 3 08:13:52 Procedures None recorded. Surgeries None recorded. Imaging PFT, complete - [id number] 03/04/24-09/16 024 [facility] Central Scheduling, [address] [place], [address], 4 08:41:34 XR, chest, 2 view 2022 023 [facility] (Imaging), [address] [place], [address], 3 08:40:25 MAMMO, screening, digital, bilateral 2022 023 [facility] (Imaging), [address] [place], [address], 3 08:28:35 Medication Orders Myrbetriq 25 mg tablet,ext ended release 2023 024 [facility] [address] [place], [address], 4 10:54:00 prednisone 10 mg tablet 2023 024 [facility]/Ph[facility]acy #0693, [address] [place], [address], 4 10:54:41 Wellbutrin XL 150 mg 24 hr tablet, extended release 2022 023 [email or web address] [facility]/Pharmacy #0693, [address] [place], [address], 4 09:07:42 prednisone 10 mg tablet [address]/Pharmacy #0693, [address] [place], [address], 4 10:32:59 levofloxac in 500 mg tablet [address]/Pharmacy #0693, [address] [place], [address], 4 10:32:44 duloxetine 60 mg capsule,de layed release 2022 023 [facility] [address] [place], [address], 3 10:18:19 prednisone 10 mg tablet 2022 023 [email or web address] [facility] [address] [place], [address], 4 10:32:59 Zithromax Z-Tim 250 mg tablet 2022 023 [facility] [address] [place], [address], 3 14:12:12 albuterol sulfate HFA 90 mcg/actuat ion aerosol inhaler 2022 023 [email or web address] [facility] [address] [place], [address], 4 14:51:15 lorazepam 0.5 mg tablet 2022 023 [facility] [address] [place], [address], 3 11:51:57 oxybutynin chloride ER 5 mg tablet,ext ended release 24 hr 2022 023 [facility] [address] [place], [address], 4 10:50:31 cephalexin 500 mg capsule 2022 023 [email or web address] [address] [place], [address], 3 12:15:48 Patient TargetsNo targets recorded. 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 [email or web address] [facility] (Medical Records) [address] [place], [address], 05/31/2023 11:13:40 02/15/20 24 02/15/2024 XR, chest , 1 view No observ ation record ed. [email or web address] [facility] [address] (Medical Records) [address] [place], [address], 02/18/2024 08:30:04 02/16/20 24 02/16/2024 XR, chest , 1 view No observ ation record ed. [email or web address] [facility] (Medical Records) [address] [place], [address], 02/18/2024 08:30:20 10/07/19 25 10/05/2024 XR, chest , 2 view No observ ation record ed. [email or web address] (Medical Records) [address] [place], [address], 10/07/2024 09:20:31 11/01/19 25 11/01/2024 XR, shoul aleks, 2 or more view No observ ation record ed. [email or web address] [facility] (Medical Records) [address] [place], [address], 11/02/2024 08:33:01 Result Notes None recorded. Problems Name Problem SNOMED Code Status Onset Date Resolution Date Notes Provider Name and Address Organization Details Recorded Time Temporoma ndibular joint disorder 81237323 Active 2019 Daljit Irby DO [address] [place] [address], [address], [facility] 0 11:11:51 Carpal tunnel syndrome of right wrist 449734261826 108 Active 2019 Daljit Irby DO [address] [place] [address], [address], [facility] 0 11:12:02 Chronic obstructi ve pulmonary disease 93664294 Active 2021 Daljit Irby DO [address] [place] [address], [address], [facility] 2 10:56:45 Multiple gastric ulcers 194577435 Active 2021 Daljit Irby DO [address] [place] [address], [address], [facility] 2 10:57:21 Insomnia 103303592 Active 2021 Daljit Irby DO [address] [place] [address], [address], [facility] 2 10:59:47 Panic disorder 581986398 Active 2021 Daljit Irby DO [address] [place] [address], [address], [facility] 2 11:01:07 Moderate recurrent major depressio n 26241005 Active 2021 TANNER LOCKE [address] [place] [address], [address], [facility] 2 11:43:50 Anxiety 24187412 Active 2021 T[address] [place] [address], [address], [facility] 2 12:22:43 Melena 9442484 Active 2021 T[facility]NER [address] [place], [address], [facility] 2 10:33:58 Cobalamin deficienc y 990820304 Active 2021 T[address] [place], [address], [facility] 2 10:34:46 Iron deficienc y anemia 77521207 Active 2021 T[address]NER [address] [place] [address], [address], [facility] 2 12:03:20 Injury of knee 606014605 Active 2022 T[address] [place] [address], [address], [facility] 3 13:56:04 Injury of knee 397197307 Active 2022 T[address]NER [address] [place] [address], [address], [facility] 3 13:56:09 Swelling of knee joint 419491409 Active 2022 T[address] [place] [address], [address], [facility] 3 13:57:51 Infected bursa 197821288 Active 2022 [address] [place] [address], [address], [facility] 3 10:28:39 Hematoma of right lower leg 326002956415 13839 Active 2022 [facility] [address] [address] [place], [address], [facility] 3 10:29:45 Prepatell ar bursitis of right knee 550827283942 100 Active 2022 Daljit Irby, DO [address] [place], [address], [facility] 3 14:11:50 Infection of prepatell ar bursa of right knee 953130660119 9105 Active 2022 Daljit Irby, DO [address] [place], [address], [facility] 3 14:12:07 Exacerbat ion of moderate persisten t asthma 568204277 Active 2022 [facility] [address] [address] [place], [address], [facility] 3 11:47:09 Urinary incontine nce 329954659 Active 2022 [facility] [address] [place], [address], [facility] 3 11:48:56 Acute bronchiti s with bronchosp asm 27192599 Active 2022 [facility] [address] [address] [place], [address], [facility] 3 10:18:40 Smoker 73579934 Active 2022 [facility] [address] [place], [address], [facility] 3 10:20:27 Pneumonia 606793906 Active 2022 [facility] [place], [address], [facility] 3 11:11:32 Tardive dyskinesi a 870453081 Active 2023 [facility] [address] [address] [place], [address], [facility] 4 09:52:31 Hyperlipi demia 27608654 Active 2023 [facility] [address] [place], [address], [facility] 4 10:52:48 Dyspnea 302339382 Active 2023 [address] [place] [address], [address], [facility] 4 10:54:03 Acute respirato ry failure 08423752 Active 2023 T[address] [place] [address], [address], [facility] 4 15:06:47 Mood disorder 86142204 Active 2023 T[address] [place] [address], [address], [facility] 4 15:11:46 Acute bronchiti s 94368084 Active 2024 T[address] [place] [address], [address], [facility] 5 10:23:01 [facility] 392105139 [facility] 10:31:25 Gastroeso phageal reflux disease 760790177 [facility] 8 10:31:31 Bipolar disorder 28483771 Active 2017 Otilia Santo NP, S [address] [place] [address], [address], [facility] 8 10:56:03 Depressiv e disorder 20829132 Active 2017 Otilia Santo NP, S [address] [place] [address], [address], [facility] 8 10:56:12 Problem Notes None recorded. Procedures Surgical History Date Name Laterality Status Provider Name and Address Organization Details Recorded Time 5 Colonoscopy completed Itzel Currie [facility] 10/05/2019 11:11:27 Imaging Results Imaging Date Name Status LastModified by Organiz ation Details LastModified Time 05/31/2023 XR, chest, 2 view completed [email or web address] [facility] (Medical Records) [address] [place], [address], 05/31/2023 11:13:40 02/15/2024 XR, chest, 1 view completed [email or web address] [facility] (Medical Records) [address] [place] [address], [address], 02/18/2024 08:30:04 02/16/2024 XR, chest, 1 view completed [email or web address] [facility] (Medical Records) [address] [place] [address], [address], 02/18/2024 08:30:20 10/05/2024 XR, chest, 2 view completed [email or web address] [facility] (Medical Records) [address] [place] [address], [address], 10/07/2024 09:20:31 11/01/2024 XR, shoulder, 2 or more view completed [email or web address] [facility] (Medical Records) [address] [place] [address], [address], 11/02/2024 08:33:01 Procedure Notes None recorded. Medical Equipment None [...] mg tablet TAKE 1 TABLET BY MOUTH DAILY FOR 7 DAYS active Not Available Not Available No [...] Updated DateTime 3 157.48 cm 36.5 kg/m2 81859.9 6 g 90 /min 97 % 97 % 142 mm[Hg] 90 mm[Hg] Daljit Irby, DO [address] [place], [address] 3 13:49:13 Date Recorded Body height Body mass index (BMI) Body weight Heart rate Oxygen saturation Oxygen saturation in Arterial blood by Pulse oximetry Systolic blood pressure Diastolic blood pressure Provider Name and Address Organization Details Last Updated DateTime 3 157.48 cm 35.8 kg/m2 90132.1 g 86 /min 92 % 92 % 148 mm[Hg] 80 mm[Hg] Court De La Rosa [facility] 3 11:32:57 Date Recorded Body height Body mass index (BMI) Body weight Heart rate Oxygen saturation Oxygen saturation in Arterial blood by Pulse oximetry Systolic blood pressure Diastolic blood pressure Provider Name and Address Organization Details Last Updated DateTime 3 157.48 cm 35.8 kg/m2 26954.1 g 94 /min 92 % 92 % 138 mm[Hg] 80 mm[Hg] Court De La Rosa [facility] 3 10:09:27 Date Recorded Body height Body mass index (BMI) Body weight Heart rate Oxygen saturation Oxygen saturation in Arterial blood by Pulse oximetry Systolic blood pressure Diastolic blood pressure Provider Name and Address Organization Details Last Updated DateTime 4 157.48 cm 29.2 kg/m2 37555.4 2 g 111 /min 98 % 98 % 134 mm[Hg] 84 mm[Hg] Patsy Estrada [facility] 4 10:35:07 Date Recorded Body height Body mass index (BMI) Body weight Systolic blood pressure Diastolic blood pressure Provider Name and Address Organization Details Last Updated DateTime 03/02/2024 157.48 cm 29.8 kg/m2 66066.56 g 128 mm[Hg] 80 mm[Hg] Court De La Rosa [facility] 4 14:46:35 Social History Question Answer Notes LastModified by Organizat ion Details LastModified Time Tobacco Smoking Status Current Every Day Smoker Not Available [facility] 07/26/2020 03:36:23 What Was The Date Of Your Most Recent Tobacco Screening? 03/02/2024 [email or web address] Information not available 03/02/2024 How Much Tobacco Do You Smoke? 1 PPD [email or web address] Information not available 02/10/2024 Do You Or Have You Ever Used Any Other Forms Of Tobacco Or Nicotine? No [email or web address] Information not available 05/24/2023 Sex: Unknown Functional Status None recorded. Mental Status None recorded. Family History Nothing Reported. Medical History No medical history recorded. Gynecological HistoryNo gynecological history recorded. Obstetrics History GPAL:G 0 P 0 0 0 0 Immunizations Vaccine Type Date Status Note Provider Conor hwang and Address Organization Details Recorded Time COVID-19 vaccine, vector-nr, rS-Ad26, PF, 0.5 mL 01/28/2021 completed Jennifer mcginnis [facility] 03/06/2022 08:36:41 Past Encounters Encounter ID Performer Location Encounter Start Date Encounter Closed Date Diagnosis/Indication Diagnosis SNOMED-CT Code Diagnosis ICD10 Code Diagnosis Note [id number] Otilia Santo NP, S [facility] [address] [place] [address], [place] [address] 03/19/2018 10:27:43 03/19/2018 16:04:47 Acute bronchitis 52941280 J20.9 Tobacco de pendence syndrome 34986549 F17.200 [id number] Daljit Irby [address],[place] [address] 07/11/2018 11:15:15 07/11/2018 13:37:08 Asthma 199924659 J45.909 worse with this infection so will need pred taper Pneumonia 643479840 J18. 9 treated with abx [id number] Daljit Irby [address], [place] [address] 10/05/2019 11:00:17 10/05/2019 11:21:04 Asthma 742293366 J45.909 has been stable and is ok here Carpal jonathan shoaib syndrome of right wrist 4523129315 99116 G56.01 will cont the ibuprof Temporoman dibular joint disorder 54604273 M26.609 will cont the ibuprof Screening mammography 24 898288 Z12.31 Adult heal th examination 036485060 Z00.00 Tobacco de pendence syndrome 55551354 F17.200 [id number] Daljit Irby [facility] [address] [facility] [address] 12/20/2021 10:25:58 12/20/2021 13:56:24 Chronic obstructive pulmonary disease 30998772 J44.9 we are going to begin her on trelegy will follow up in a few weeks samples of 200mg dose given Gastroesop hageal reflux disease 892783918 K21.9 seems stable Depressive disorder 3548 9007 F32.A follows her psychiatri st Multiple g astric ulcers 065255070 K25.9 had a signif icant bleed with hgb down to 7 we will order cbc and rechj uin 1 month Insomnia 762918765 G47.0 0 Panic disorder 737186836 F41.0 we will provide temporary lorazepam [id number] TAN[address]KE [facility] [address] [facility], [facility] [facility] [place] [address] 12/27/2021 11:18:02 01/01/2022 08:30:58 Insomnia 989823384 G47.09 will fu if still having issues picking Moderate r ecurrent major depression 81545719 F33.1 will start on sertraline and resubmit seroquel dosage [id number] T[address] [facility] [address] [facility], [facility] [facility] [place] [address] 12/29/2021 10:30:37 01/01/2022 12:14:24 Bipolar disorder 04070461 F31.0 stable Depressive disorder 3548 9007 F32.0 improved Anxiety 96794793 F41.1 improved [id number] Daljit Irby DO [facility] [address] [facility] [facility] [address] 01/19/2022 11:02:49 01/19/2022 11:47:03 Active or passive immunization 921270417 Z23 will consider shingles and Tdap Panic disorder 853222322 F41.0 lorazepam was not too helpful Chronic ob structive pulmonary disease 60542883 J44.9 we are going to begin her on trelegy will follow up in a few weeks samples of 200mg dose givenseems to be helping she is breathing better Anxiety 60742598 F41.9 as above she is doing ok overall and id feeling betterwe discussed the poss of new med for the bipolar she will need to sidcuss with her psych (caplyta) Temporoman dibular joint disorder 44467725 M26.609 will cont the ibuprof [id number] T[address] [facility] [address] [facility] [address] [address] 03/23/2022 08:40:47 03/23/2022 14:10:34 Melena 4632938 K92.1 will start work up for melena Cobalamin deficiency 190 796466 E53.8 needs refill Insomnia 867517926 G47.0 9 stable on medication Moderate r ecurrent major depression 71025622 F33.1 refill Gastroesop hageal reflux disease 565571264 K21.00 increase to 40 mg of omeprazole until source of bleed can be determined [id number] [address] [facility] [address] [facility] [address] [place] [facility] [address] 07/25/2022 08:54:50 07/25/2022 12:22:55 Asthma 103589831 J45.40 will start on neb with solution Moderate r ecurrent major depression 78392658 F33.1 refill needed Insomnia 894340428 G47.0 9 stable on medication Iron defic iency anemia 26077623 D50.0 will refill for patientdid call it in but haven't gotten a refill request yet [id number] [address] [facility] [address] [facility] [address] [address] 10/10/2022 13:26:14 10/10/2022 16:09:00 Injury of knee 431254742 S89.91XA will fu with repeat XR in two weeks Swelling o f knee joint 671460113 M25.462 will start dual treatment with pred and tramadol Chronic ob structive pulmonary disease 19131547 J41.8 given samplestre debora works really well for her [id number] Diana Ernestobecka [facility] [address] [facility] [address] [address] 10/15/2022 14:34:37 10/15/2022 16:06:12 Injury of knee 692760193 S89.91XA still too much swelling US knee Swelling o f knee joint 781576510 M25.462 severe swellingun able to drain any fluid off the patientjus t bleeding Chronic ob structive pulmonary disease 66026900 J41.8 given samplestre debora works really well for her [id number] [facility] [address] [facility] [address] [address],[place] [address] 11/30/2022 13:40:24 11/30/2022 15:58:43 Moderate recurrent major depression 93121779 F33.1 as noted no major changes Screening mammography 24 399486 Z12.31 Prepatella r bursitis of right knee 0371486398 46196 M70.41 MUST be seen by a competent ortho Infection of prepatellar bursa of right knee 3800054468 546117 M71.161 appears now to have a superficia l cellulitic appearance now spreading [id number] [address] [facility] [address] [facility] [address] [address] 02/25/2023 11:05:10 02/25/2023 13:13:36 Asthma 174851150 J45.40 will start on neb with solution Exacerbati on of moderate persistent asthma 783298606 J45.41 will start on standard treatment Moderate r ecurrent major depression 80034621 F33.1 refill needed Urinary incontinence 165 166464 N39.42 [id number] [address] [facility] [address] [facility] [address] [address] 05/24/2023 10:06:01 05/24/2023 11:27:12 Depressive disorder 48899189 F32.0 stable Acute bron chitis with bronchospasm 32397261 J20.9 will set up with prednisone + levoCOVID test negative Smoker 92777078 F17.200 will start on wellbutrin for smoking [id number] TANNER LOC[facility] [address] [facility] [address],[place] [address] 02/10/2024 10:22:57 02/10/2024 14:11:54 Urinary incontinence 187156490 N39.42 will switch out medication and fu with kidney and urine check Depression screening 171 322106 Z13.31 negative score Cobalamin deficiency 190 885987 E53.8 needs refill Iron defic iency anemia 43032221 D50.0 will refill for patientdid call it in but haven't gotten a refill request yet Hyperlipidemia 62583721 E78.2 will set up with recheck blood work Chronic ob structive pulmonary disease 86708657 J41.8 given samplestre debora works really well for her Dyspnea 177420825 R06.00 will set up with pred taper [id number] TANNER LOCKE [facility] [address],[place] [address] 03/02/2024 14:34:00 03/03/2024 14:25:12 Depressive disorder 76406989 F32.0 F33.1 stable Mood disorder 55324486 F 31.0 stable Acute resp iratory failure 65760536 J96.00 stable Chronic ob structive pulmonary disease 95106474 J44.1 will f/u with pulm for evalordere d the PFT per pulm Health Concerns Section Related Observation LastModified by Organization Detai ls LastModified Time None Recorded Concern Status LastModified by Organization Details LastModified Time None Recorded Advance Directives Directive None Recorded Payers Encounter Date Sequence Insurance Name Policy Number Policy Chairez Covered Member ID Chairez Member ID Guarantor Name 11/30/2022 1 [place] [facility] Lissette Sanches [id number] Lissette Sanches 02/25/2023 1 [place] [facility] Lissette Sanches [id number] Lissette Sanches 05/24/2023 1 [place] [facility] Lissette Sanches [id number] Lissette Sanches 02/10/2024 1 [place] [facility] Lissette Sanches [id number] Lissette Sanches 03/02/2024 1 [place] [facility] Lissette Sanches [id number] Lissette Sanches Notes Date Note Type Note Provider Name and Address Organization Details Recorded Time 3 text/html pt fell at home on oct 04 and has been seen by drs at ER and ortho multiple timesortho has seen her twice and was told to go to ER or pcp that they couldnt help her Daljit Conteh Mahamed, [address] [place], [address], [facility] 11/30/2022 14:19:27 3 [...] if it is effective T[facility]NER LOC[facility] [address] [place], [address], [facility] 02/25/2023 11:58:55 3 text/html c/o pneumonia patient has hx of smokingrecurrent pneumonia, hx of COPDhaving exacerbation with probable bronchitis start on steriods and abx cont inhalers at home T[facility] LOCKE [address] [place], [id number], [facility] 05/24/2023 10:31:11 4 [...] given order for it [address] [place], [id number], [facility] 02/10/2024 11:01:05 4 [...] using her inhalers correctly [address] [place], [id number], [facility] 03/02/2024 15:15:46 OBGyn Episode No OBEpisode recorded.
== END 2024-12-24 07:28 | disposition home or self-care (01) ==
LOC: HO.MAMMO 07:27
PROVIDERS: PCP Internal Medicine; Visit Provider Internal Medicine
DX: Z12.31 Encounter for screening mammogram for malignant neoplasm of breast (principal)
CPT/HCPCS: 77063; 77067

== ENCOUNTER → 2024-12-24 07:45 | Outpatient (BNV) | payer OTHER, SELFPAY | PROVIDERS: PCP Internal Medicine; Visit Provider Internal Medicine | DX: Z12.31 Encounter for screening mammogram for malignant neoplasm of breast (principal) | CPT/HCPCS: 77063; 77067 ==

== ENCOUNTER 2025-01-20 08:13 | Outpatient (REF) | payer OTHER, SELFPAY ==
--- NOTE | 2025-01-20 08:17 | EMG_ITS ---
Chief complaint: Sudden onset 2 months ago left scapular pain with tingling down to fingers. Scapular pain has resolved since prednisone. Continues to have tingling on fingers. No weakness. No atrophy. Reason for referral: Evaluate for radiculopathy Referred by: Teri HART Procedure done: Left upper extremity NCS/EMG Precautions and/or limitations: None The limb temperature was monitored continuously and remained between 32-36 degrees C during the performance of the NCS. Ulnar motor NCS was performed with moderate elbow flexion between 70-90 degrees, with across-elbow distance of 10 cm. Nerve Conduction Studies Anti Sensory Summary Table ?Stim Site NR Onset (ms) Norm Onset (ms) Peak (ms) Norm Peak (ms) O-P Amp (?V) Norm O-P Amp Site1 Site2 Delta-0 (ms) Dist (cm) Skyler (m/s) Norm Skyler (m/s) Left Lat Ante Brach Cutan Anti Sensory (Lat Forearm) Lat Biceps ? 2.2 2.6 5.4 Lat Biceps Lat Forearm 2.2 0.0 Left Med Ante Brach Cutan Anti Sensory (Med Forearm) Elbow ? 2.1 2.8 22.8 Elbow Med Forearm 2.1 0.0 Left Median Anti Sensory (2nd Digit) Wrist ? 3.5 4.5 <3.6 8.6 >10 Wrist 2nd Digit 3.5 14.0 40 Left Radial Anti Sensory (Thumb) Forearm ? 1.6 2.3 <3.1 21.3 Forearm Thumb 1.6 0.0 Left Ulnar Anti Sensory (5th Digit) Wrist ? 4.8 5.4 <3.7 8.5 >15.0 Wrist 5th Digit 4.8 14.0 29 Motor Summary Table ?Stim Site NR Onset (ms) Norm Onset (ms) O-P Amp (mV) Norm O-P Amp iAmp (mV) Amp (1st) (%) Site1 Site2 Delta-0 (ms) Dist (cm) Skyler (m/s) Norm Skyler (m/s) Left Median Motor (Abd Poll Brev) Wrist ? 4.2 <3.9 6.2 >4.5 7.2 100.0 Elbow Wrist 3.9 19.0 49 >45 Elbow ? 8.1 5.1 5.9 82.3 Left Ulnar Motor (Abd Dig Minimi) Wrist ? 3.1 <3.0 2.1 >5 2.8 100.0 B Elbow Wrist 3.9 17.5 45 >45 B Elbow ? 7.0 2.3 3.0 109.5 A Elbow B Elbow 3.1 10.0 32 >45 A Elbow ? 10.1 2.0 2.8 95.2 EMG ?Side Muscle Nerve Root Ins Act Fibs Psw Amp Dur Poly Recrt Int Pat Comment Left 1stDorInt Ulnar C8-T1 Nml Nml Nml Nml Nml 0 Nml Complete Left FlexCarRad Median C6-7 Nml Nml Nml Nml Nml 0 Nml Complete Left Biceps Musculocut C5-6 Nml Nml Nml Nml Nml 0 Nml Complete Left Triceps Radial C6-7-8 Nml Nml Nml Nml Nml 0 Nml Complete Left Deltoid Axillary C5-6 Nml Nml Nml Nml Nml 0 Nml Complete FINDINGS: Left median motor nerve showed prolonged distal latency, normal amplitude and normal conduction velocity. Left ulnar motor nerve showed prolonged distal latency, small amplitude and slow conduction velocity across elbow. Left median sensory nerve showed prolonged peak latency and small amplitude. Left ulnar sensory nerve showed prolonged peak latency and small amplitude. All other nerves tested were within normal. Concentric needle EMG was performed in selected muscles of the left upper extremity and cervical paraspinals. Study did not reveal signs of electric abnormalities as shown in the table above. IMPRESSION: 1. This is an abnormal study. 2. There is electrodiagnostic evidence for left moderate-severe median neuropathy at the wrist, consistent with carpal tunnel syndrome. 3. There is electrodiagnostic evidence for left ulnar neuropathy at the elbow. 4. There is no electrodiagnostic evidence for brachial plexopathy, or cervical radiculopathy. Thank you for your kind referral. ySdney Tavares MD, NAKUL Board Certified, [place] [employer] and [employer] (ABPMR) Board Certified, [place] [employer] Electro[employer]ostic [employer] (ABEM) [place] [id number] [facility]
--- OUTSIDE RECORDS SUMMARY | 2025-01-20 08:28 | XMS_ITS | Data Portability ---
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 Lab lipid panel, serum 2023 [facility], [address] [place] [address], [address], 4 11:05:54 CBC w/ auto diff 2023 [facility], [address] [place] [address], [address], 4 11:05:54 CMP, serum or plasma 2023 024 [facility], [address] [place] [address], [address], 4 11:22:06 urinalysis complete, reflex culture 2023 024 [facility], [address] [place] [address], [address], 4 11:01:07 iron + TIBC + ferritin, serum 2023 024 [facility], [address] [place] [address], [address], 4 11:05:54 vitamin B12 + folate, serum or blood 2023 024 [facility], [address] [place] [address], [address], 4 11:05:54 homocystei ne, serum or plasma 2023 024 [facility], [address] [place] [address], [address], 4 11:17:29 TSH + free T4, serum 2023 024 [facility], [address] [place] [address], [address], 4 11:06:30 Referral pulmonolog ist referral 2023 024 [email or web address] Supa Sullivan MD, [address] [place] [address] [place], [address], 4 14:25:12 orthopedic surgeon referral - PLEASE SEE RADHIKA PLEASE SEE PHOTO PROVIDED recenty started on cephalexin has been to ER twice has been partially drained twice 2022 023 [email or web address] Luis MD, [address] [facility] [place], [place], [address], 3 08:13:52 Procedures None recorded. Surgeries None recorded. Imaging PFT, complete - [id number] 03/04/24-09/16 024 [facility] Central Scheduling, [address] [place], [address], 4 08:41:34 XR, chest, 2 view 2022 023 [facility] (Imaging), [address] [place], [address], 3 08:40:25 MAMMO, screening, digital, bilateral 2022 023 [facility] (Imaging), [address] [place], [address], 3 08:28:35 Medication Orders Myrbetriq 25 mg tablet,ext ended release 2023 024 [facility] [address] [place], [address], 4 10:54:00 prednisone 10 mg tablet 2023 024 [facility]0693, [address] [place], [address], 4 10:54:41 Wellbutrin XL 150 mg 24 hr tablet, extended release 2022 023 [email or web address] [facility]armacy #0693, [address] [place], [address], 4 09:07:42 prednisone 10 mg tablet [address]/Pharmacy #0693, [address] [place], [address], 4 10:32:59 levofloxac in 500 mg tablet [address]/Pharmacy #0693, [address] [place], [address], 4 10:32:44 duloxetine 60 mg capsule,de layed release 2022 023 [facility] [address] [place], [address], 3 10:18:19 prednisone 10 mg tablet [email or web address] [facility] [address] [place], [address], 4 10:32:59 Zithromax Z-Tim 250 mg tablet 2022 023 [facility] [address] [place], [address], 3 14:12:12 albuterol sulfate HFA 90 mcg/actuat ion aerosol inhaler [email or web address] [facility] [address] [place], [address], 4 14:51:15 lorazepam 0.5 mg tablet 2022 023 [facility] [address] [place], [address], 3 11:51:57 oxybutynin chloride ER 5 mg tablet,ext ended release 24 hr 2022 023 [facility] [address] [place], [address], 4 10:50:31 cephalexin 500 mg capsule 2022 023 [email or web address] [address] [place], [address], 3 12:15:48 Patient TargetsNo targets recorded. Patient Instructions Encounter Date Encounter Id Patient Instructions Last Modified By Organization Details Last Modified Time 11/30/2022 [id number] mammogram: about this test Not available 11/30/2022 14:16:31 Reason for Referral Orthopedic Surgeon Referral for Prepatellar bursitis of right knee PLEASE SEE RADHIKA PLEASE SEE PHOTO PROVIDED recenty started on cephalexinhas been to ER twice has been partially drained twice Referring Physician: Daljit Irby, Internal Medicine, Encounter Date: 11/30/2022 Service Center Coordinator Referral for A cute respiratory failure needs PCP referral for evaluation, seen at [facility] Referring Physician: Ginny Purcell, Internal Medicine, Encounter Date: 03/02/2024 Results Created Date Observation Date Name Description Value Unit Range Abnormal Flag Note LastModifiedBy Organization Detail LastModifiedTime 05/31/2005/31/2023 XR, chest , 2 view No observ ation record ed. rtba [facility] (Medical Records) [address] [place], [address], 05/31/2023 11:13:40 02/15/20 24 02/15/2024 XR, chest , 1 view No observ ation record ed. [email or web address] (Medical Records) [address] [place], [address], 02/18/2024 08:30:04 02/16/20 24 02/16/2024 XR, chest , 1 view No observ ation record ed. [email or web address] [facility] (Medical Records) [address] [place], [address], 02/18/2024 08:30:20 10/07/19 25 10/05/2024 XR, chest , 2 view No observ ation record ed. [email or web address] (Medical Records) [address] [place], [address], 10/07/2024 09:20:31 11/01/19 25 11/01/2024 XR, shoul aleks, 2 or more view No observ ation record ed. [email or web address] [facility] (Medical Records) [address] [facility], [place], [address], 11/02/2024 08:33:01 12/29/19 25 12/24/2024 MAMMO , ronnie hinds, digit al, bilat eral No observ ation record ed. [email or web address] [facility] [address] [place], [address], 12/29/2024 08:15:55 Result Notes None recorded. Problems Name Problem SNOMED Code Status Onset Date Resolution Date Notes Provider Name and Address Organization Details Recorded Time Temporoma ndibular joint disorder 60039714 Active 2019 Daljit Irby DO [address] [place] [address], [address], [facility] 0 11:11:51 Carpal tunnel syndrome of right wrist 234179594026 108 Active 2019 Daljit Irby DO [address] [place] [address], [address], [facility] 0 11:12:02 Chronic obstructi ve pulmonary disease 53499627 Active 2021 Daljit Irby DO [address] [place] [address], [address], [facility] 2 10:56:45 Multiple gastric ulcers 695164332 Active 2021 Daljit Irby DO [address] [place] [address], [address], [facility] 2 10:57:21 Insomnia 560995031 Active 2021 Daljit Irby DO [address] [place] [address], [address], [facility] 2 10:59:47 Panic disorder 317610712 Active 2021 Daljit Irby DO [address] [place] [address], [address], [facility] 2 11:01:07 Moderate recurrent major depressio n 30598366 Active 2021 T[address] [place], [address], [facility] 2 11:43:50 Anxiety 58796878 Active 2021 [address] [place], [address], [facility] 2 12:22:43 Melena 7364837 Active 2021 [address] [place], [address], [facility] 2 10:33:58 Cobalamin deficienc y 631605243 Active 2021 [address] [place], [address], [facility] 2 10:34:46 Iron deficienc y anemia 75160747 Active 2021 [address] [place] [address], [address], [facility] 2 12:03:20 Injury of knee 669518359 Active 2022 [address] [place] [address], [address], [facility] 3 13:56:04 Injury of knee 930362484 Active 2022 [address] [place] [address], [address], [facility] 3 13:56:09 Swelling of knee joint 984966582 Active 2022 [address] [place] [address], [address], [facility] 3 13:57:51 Infected bursa 187274659 Active 2022 [address] [place] [address], [address], [facility] 3 10:28:39 Hematoma of right lower leg 916744331681 00218 Active 2022 [address] [place] [address], [address], [facility] 3 10:29:45 Prepatell ar bursitis of right knee 358617521203 100 Active 2022 Daljit Irby DO [address] [place] [address], [address], [facility] 3 14:11:50 Infection of prepatell ar bursa of right knee 855843212403 9105 Active 2022 Daljit Irby, [address], [address], [facility] 3 14:12:07 Exacerbat ion of moderate persisten t asthma 776809624 Active 2022 [address] [place] [address], [address], [facility] 3 11:47:09 Urinary incontine nce 195667593 Active 2022 [address] [place] [address], [address], [facility] 3 11:48:56 Acute bronchiti s with bronchosp asm 49659126 Active 2022 [address] [place] [address], , [facility] 3 10:18:40 Smoker 40065346 Active 2022 [address] [place] [address], , [facility] 3 10:20:27 Pneumonia 279289063 Active 2022 [address] [place] [address], , [facility] 3 11:11:32 Tardive dyskinesi a 220483154 Active 2023 [address] [place], [address], [facility] 4 09:52:31 Hyperlipi demia 50812731 Active 2023 [address] [place] [address], [address], [facility] 4 10:52:48 Dyspnea 932112689 Active 2023 [address] [place] [address], [address], [facility] 4 10:54:03 Acute respirato ry failure 79494516 Active 2023 [address] [place] [address], [address], [facility] 4 15:06:47 Mood disorder 61821178 Active 2023 [address] [place] [address], [address], [facility] 4 15:11:46 Acute bronchiti s 34399702 Active 2024 [address] [place] [address], [address], [facility] 5 10:23:01 Asthma 138349076 Active 2017 Stacie mcginnis [facility] 8 10:31:25 Gastroeso phageal reflux disease 303914555 Active 2017 Stacie mcginnis [facility] 8 10:31:31 Bipolar disorder 08752795 Active 2017 Otilia Santo NP, S [address] [place] [address], [address], [facility] 8 10:56:03 Depressiv e disorder 03014289 Active 2017 Otilia Santo NP, S [address] [place], [address], [place] [facility] 8 10:56:12 Problem Notes None recorded. Procedures Surgical History Date Name Laterality Status Provider Name and Address Organization Details Recorded Time Most Recent Mammogram completed Patsy Estrada [facility] 12/29/2024 08:15:39 5 Colonoscopy completed Itzel Currie [facility] 10/05/2019 11:11:27 Imaging Results Imaging Date Name Status LastModified by Organiz ation Details LastModified Time 05/31/2023 XR, chest, 2 view completed [facility] (Medical Records) [address] [place], [address], 05/31/2023 11:13:40 02/15/2024 XR, chest, 1 view completed [address] (Medical Records) [address] [place], [address], 02/18/2024 08:30:04 02/16/2024 XR, chest, 1 view completed [address] (Medical Records) [address] [place], [address], 02/18/2024 08:30:20 10/05/2024 XR, chest, 2 view completed [address] (Medical Records) [address] [place], [address], 10/07/2024 09:20:31 11/01/2024 XR, shoulder, 2 or more view completed [email or web address] (Medical Records) [address] [place], [address], 11/02/2024 08:33:01 12/24/2024 MAMMO, screening, digital, bilateral completed [address] [facility] [address] [place] [address] [place], [address], 12/29/2024 08:15:55 Procedure Notes None recorded. Medical Equipment None [...] Available Not Available prednisone 10 mg tablet 50 mg x 3 days 40mg x 3 days, 30mg x 3 days, 20mg x 3 days, 10mg x 3 days 2024 active Not Available Not Available Not Avai lable doxycycline hyclate 100 mg capsule TAKE 1 CAPSULE BY MOUTH TWICE A DAY FOR 14 DAYS 02/09 completed Not Available Not Available Not Available benztropine 0.5 mg tablet TAKE 1 TABLET BY MOUTH EVERY MORNING AND TAKE 2 TABLETS BY MOUTH AT NIGHT. active Not Available Not Available No t Available lamotrigine 200 mg tablet Take 1 tablet by mouth every day as directed. *PLEASE CALL OFFICE FOR FURTHER REFILLS.* 2024 active Not Available Not Available Not Avai lable ipratropium 0.5 mg-albutero l 3 mg (2.5 [...] completed Not Available Not Available Not Available zolpidem 5 mg tablet TAKE 1 TABLET BY MOUTH EVERY DAY FOR 30 DAYS active Not Available Not Available No t Available cefuroxime axetil 500 mg tablet TAKE [...] day by oral route for 30 days. 04/12/ 2024 05/20 /2024 completed Not Available Not Available Not Available [...] Updated DateTime 3 157.48 cm 36.5 kg/m2 03148.9 6 g 90 /min 97 % 97 % 142 mm[Hg] 90 mm[Hg] Daljit Irby, DO [address] [place], [address] [place] [address] Internal Medicine 3 13:49:13 Date Recorded Body height Body mass index (BMI) Body weight Heart rate Oxygen saturation Oxygen saturation in Arterial blood by Pulse oximetry Systolic blood pressure Diastolic blood pressure Provider Name and Address Organization Details Last Updated DateTime 3 157.48 cm 35.8 kg/m2 79679.1 g 86 /min 92 % 92 % 148 mm[Hg] 80 mm[Hg] Court De La Rosa [facility] 3 11:32:57 Date Recorded Body height Body mass index (BMI) Body weight Heart rate Oxygen saturation Oxygen saturation in Arterial blood by Pulse oximetry Systolic blood pressure Diastolic blood pressure Provider Name and Address Organization Details Last Updated DateTime 3 157.48 cm 35.8 kg/m2 01353.1 g 94 /min 92 % 92 % 138 mm[Hg] 80 mm[Hg] Court De La Rosa [facility] 3 10:09:27 Date Recorded Body height Body mass index (BMI) Body weight Heart rate Oxygen saturation Oxygen saturation in Arterial blood by Pulse oximetry Systolic blood pressure Diastolic blood pressure Provider Name and Address Organization Details Last Updated DateTime 4 157.48 cm 29.2 kg/m2 32686.4 2 g 111 /min 98 % 98 % 134 mm[Hg] 84 mm[Hg] Patsy Estrada [facility] 4 10:35:07 Date Recorded Body height Body mass index (BMI) Body weight Systolic blood pressure Diastolic blood pressure Provider Name and Address Organization Details Last Updated DateTime 03/02/2024 157.48 cm 29.8 kg/m2 14564.56 g 128 mm[Hg] 80 mm[Hg] Court Choudharymond [facility] 4 14:46:35 Social History Question Answer Notes LastModified by Organizat ion Details LastModified Time Tobacco Smoking Status Current Every Day Smoker Not Available [email or web address] 07/26/2020 03:36:23 What Was The Date Of Your Most Recent Tobacco Screening? 03/02/2024 [email or web address] Information not available 03/02/2024 How Much Tobacco Do You Smoke? 1 PPD [email or web address] Information not available 02/10/2024 Do You Or Have You Ever Used Any Other Forms Of Tobacco Or Nicotine? No [email or web address] Information not available 05/24/2023 Sex: Unknown Functional Status None recorded. Mental Status None recorded. Family History Nothing Reported. Medical History No medical history recorded. Gynecological History Statement/Question Response Most Recent Mammogram 12/24/2024 Obstetrics History GPAL:G 0 P 0 0 0 0 Immunizations Vaccine Type Date Status Note Provider Nam e and Address Organization Details Recorded Time COVID-19 vaccine, vector-nr, rS-Ad26, PF, 0.5 mL 01/28/2021 completed Jennifer mcginnis [facility] 03/06/2022 08:36:41 Past Encounters Encounter ID Performer Location Encounter Start Date Encounter Closed Date Diagnosis/Indication Diagnosis SNOMED-CT Code Diagnosis ICD10 Code Diagnosis Note [id number] Otilia Santo NP, S [facility] [address] [facility],[place] [address] 03/19/2018 10:27:43 03/19/2018 16:04:47 Acute bronchitis 48625624 J20.9 Tobacco de pendence syndrome 42786945 F17.200 [id number] Daljit Irby DO [facility] [address] [facility] [address],[place] [address] 07/11/2018 11:15:15 07/11/2018 13:37:08 Asthma 242121748 J45.909 worse with this infection so will need pred taper Pneumonia 550140972 J18. 9 treated with abx [id number] Daljit Irby [facility] [address] [facility] [address] [place] [place] [address] 10/05/2019 11:00:17 10/05/2019 11:21:04 Asthma 343177459 J45.909 has been stable and is ok here Carpal jonathan shoaib syndrome of right wrist 2794760056 56236 G56.01 will cont the ibuprof Temporoman dibular joint disorder 70706193 M26.609 will cont the ibuprof Screening mammography 24 410841 Z12.31 Adult heal th examination 774712104 Z00.00 Tobacco de pendence syndrome 76184297 F17.200 [id number] Daljit Irby [facility] [address] [facility] [address] [place] [address] 12/20/2021 10:25:58 12/20/2021 13:56:24 Chronic obstructive pulmonary disease 68731520 J44.9 we are going to begin her on trelegy will follow up in a few weeks samples of 200mg dose given Gastroesop hageal reflux disease 657943720 K21.9 seems stable Depressive disorder 3548 9007 F32.A follows her psychiatri st Multiple g astric ulcers 931388423 K25.9 had a signif icant bleed with hgb down to 7 we will order cbc and rechj uin 1 month Insomnia 471074154 G47.0 0 Panic disorder 070398912 F41.0 we will provide temporary lorazepam [id number] [facility] [address] [facility] [address] [place] [facility] [place] [address] 12/27/2021 11:18:02 01/01/2022 08:30:58 Insomnia 450927023 G47.09 will fu if still having issues picking Moderate r ecurrent major depression 31796601 F33.1 will start on sertraline and resubmit seroquel dosage [id number] [address] [facility] [address] [facility] [address],[place] [address] 12/29/2021 10:30:37 01/01/2022 12:14:24 Bipolar disorder 36714813 F31.0 stable Depressive disorder 3548 9007 F32.0 improved Anxiety 33435063 F41.1 improved [id number] Daljit Irby, [facility] [address] [facility] [address] [address] 01/19/2022 11:02:49 01/19/2022 11:47:03 Active or passive immunization 181479150 Z23 will consider shingles and Tdap Panic disorder 468802956 F41.0 lorazepam was not too helpful Chronic ob structive pulmonary disease 61110163 J44.9 we are going to begin her on trelegy will follow up in a few weeks samples of 200mg dose givenseems to be helping she is breathing better Anxiety 36705738 F41.9 as above she is doing ok overall and id feeling betterwe discussed the poss of new med for the bipolar she will need to sidcuss with her psych (caplyta) Temporoman dibular joint disorder 41978525 M26.609 will cont the ibuprof [id number] [address] [facility] [address] [facility] [address],[place] [address] 03/23/2022 08:40:47 03/23/2022 14:10:34 Melena 4632795 K92.1 will start work up for melena Cobalamin deficiency 190 939957 E53.8 needs refill Insomnia 530052837 G47.0 9 stable on medication Moderate r ecurrent major depression 40462939 F33.1 refill Gastroesop hageal reflux disease 899910972 K21.00 increase to 40 mg of omeprazole until source of bleed can be determined [id number] [address] [facility] [address] [facility] [address] [address] 07/25/2022 08:54:50 07/25/2022 12:22:55 Asthma 209389744 J45.40 will start on neb with solution Moderate r ecurrent major depression 40533852 F33.1 refill needed Insomnia 224563487 G47.0 9 stable on medication Iron defic iency anemia 86837123 D50.0 will refill for patientdid call it in but haven't gotten a refill request yet [id number] [address] [facility] [address] [facility] [address] [address] 10/10/2022 13:26:14 10/10/2022 16:09:00 Injury of knee 512954086 S89.91XA will fu with repeat XR in two weeks Swelling o f knee joint 403397389 M25.462 will start dual treatment with pred and tramadol Chronic ob structive pulmonary disease 55149741 J41.8 given samplestre legy works really well for her [id number] Diana Rivers [facility] [address] [facility],[place] [address] 10/15/2022 14:34:37 10/15/2022 16:06:12 Injury of knee 089734228 S89.91XA still too much swelling US knee Swelling o f knee joint 782331165 M25.462 severe swellingun able to drain any fluid off the patientjus t bleeding Chronic ob structive pulmonary disease 37762650 J41.8 given samplestre legy works really well for her [id number] [facility] [address] [facility],[place] [address] 11/30/2022 13:40:24 11/30/2022 15:58:43 Moderate recurrent major depression 99395588 F33.1 as noted no major changes Screening mammography 24 064896 Z12.31 Prepatella r bursitis of right knee 4491783895 13262 M70.41 MUST be seen by a competent ortho Infection of prepatellar bursa of right knee 8845136944 485348 M71.161 appears now to have a superficia l cellulitic appearance now spreading [id number] [address] [facility] [address] [facility],[address] [place] [address] 02/25/2023 11:05:10 02/25/2023 13:13:36 Asthma 615411832 J45.40 will start on neb with solution Exacerbati on of moderate persistent asthma 812242047 J45.41 will start on standard treatment Moderate r ecurrent major depression 59658503 F33.1 refill needed Urinary incontinence 165 024862 N39.42 [id number] [address] [facility] [address] [facility] [address] [address] 05/24/2023 10:06:01 05/24/2023 11:27:12 Depressive disorder 05322127 F32.0 stable Acute bron chitis with bronchospasm 99953584 J20.9 will set up with prednisone + levoCOVID test negative Smoker 00727686 F17.200 will start on wellbutrin for smoking [id number] T[place] [facility] [address] [facility] [address] [address] 02/10/2024 10:22:57 02/10/2024 14:11:54 Urinary incontinence 277658754 N39.42 will switch out medication and fu with kidney and urine check Depression screening 171 137960 Z13.31 negative score Cobalamin deficiency 190 910341 E53.8 needs refill Iron defic iency anemia 21113105 D50.0 will refill for patientdid call it in but haven't gotten a refill request yet Hyperlipidemia [id number] E78.2 will set up with recheck blood work Chronic ob structive pulmonary disease 18032744 J41.8 given samplestre debora works really well for her Dyspnea 432424867 R06.00 will set up with pred taper [id number] TANNER LOCKE [facility] [address] [facility] [place] [address] 03/02/2024 14:34:00 03/03/2024 14:25:12 Depressive disorder 13149160 F32.0 F33.1 stable Mood disorder 08963987 F 31.0 stable Acute resp iratory failure 28377372 J96.00 stable Chronic ob structive pulmonary disease 59691910 J44.1 will f/u with pulm for evalordere [...] Guarantor Name 11/30/2022 1 [place] Lissette Sanches [id number] Lissette Sanches 02/25/2023 1 [place] Lissette Sanches [id number] Lissette Sanches 05/24/2023 1 [place] Lissette Malhotrabert [id number] Lissette Sanches 02/10/2024 1 [place] Lissette Sanches [id number] Lissette Sanches 03/02/2024 1 [place] Lissette Sanches [id number] Lissette Sanches Notes Date Note Type Note Provider Name and Address Organization Details Recorded Time 3 text/html pt fell at home on oct 04 and has been seen by drs at ER and ortho multiple timesortho has seen her twice and was told to go to ER or pcp that they couldnt help her Daljit Yady Irby, [address] [place], [address], [facility] 11/30/2022 14:19:27 3 text/html c/o [...] if it is effective TANNER LOCKE [address] [place], [address], [facility] 02/25/2023 11:58:55 3 text/html c/o pneumonia patient has hx of smokingrecurrent pneumonia, hx of COPDhaving exacerbation with probable bronchitis start on steriods and abx cont inhalers at home TANNER LOCKE [address] [place], [address], [facility] 05/24/2023 10:31:11 4 text/html c/o [...] given order for it TANNER LOCKE [address] [place], [address], [facility] 02/10/2024 11:01:05 4 text/html hospital d/c the [...] using her inhalers correctly TANNER LOCKE [address] [place], [address], [facility] 03/02/2024 15:15:46 OBGyn Episode No OBEpisode recorded.
== END 2025-01-20 08:14 | disposition home or self-care (01) ==
LOC: HO.NEURO 08:13
PROVIDERS: PCP Internal Medicine; Visit Provider Physician Assistant
DX: M54.12 Radiculopathy, cervical region (principal); M79.18 Myalgia, other site
CPT/HCPCS: 95886; 95910

== ENCOUNTER → 2025-01-20 08:17 | Outpatient (BNV) | payer OTHER, SELFPAY | PROVIDERS: PCP Internal Medicine; Visit Provider Physical Medicine & Rehabilitation | DX: G56.02 Carpal tunnel syndrome, left upper limb (principal); G56.22 Lesion of ulnar nerve, left upper limb | CPT/HCPCS: 95886; 95910 ==

== ENCOUNTER 2025-03-17 09:50 | Outpatient (REF) | payer OTHER, SELFPAY ==
--- OUTSIDE RECORDS SUMMARY | 2025-03-17 11:14 | XMS_ITS | Continuity of Care Document ---
Author Organization [place] - [facility], [facility] Address [address] [facility] [place] [place] [address] [place] [address] Assessment No assessment recorded. Plan of Treatment Reminders Order Date Submit Date Provider Last Modified By Organization Details Last Modified Time Details Appointments FOLLOW UP 15 2024 09:30A M TANNER LOCKE Not available Not available Not available Lab uric acid, serum or plasma 2024 025 [facility], [address] [place] [address], [id number], 03/17/2025 09:43:02 urinalysi s complete, reflex culture 2024 025 [facility], [address] [place] [address], [address], 03/17/2025 09:43:01 hemoglobi n A1c, QN, blood 2024 025 [facility], [address] [place] [address], [id number], 03/17/2025 09:43:02 vitamin B12 + folate, serum or blood 2024 025 [facility], [address] [place] [address], [address], 03/17/2025 09:43:02 iron + TIBC + ferritin, serum 2024 025 [facility], [address] [place] [address], [address], 03/17/2025 09:43:01 CMP, serum or plasma 2024 025 [facility], [address] [place] [address], [address], 03/17/2025 09:43:01 CBC w/ auto diff 2024 [facility], [address] [place] [address], [address], 03/17/2025 09:43:01 magnesium , serum or plasma 2024 025 [facility], [address] [place] [address], [id number], 03/17/2025 09:43:01 ESR (erythroc yte sedimenta tion rate), blood 2024 025 [facility], [address] [place] [address], [address], 03/17/2025 09:43:02 C-reactiv e protein, quantitat primitivo, serum or plasma 2024 025 [facility], [address] [place] [address], [id number], 03/17/2025 09:43:02 TSH + free T4, serum 2024 025 [facility], [address] [place] [address], [address], 03/17/2025 09:43:02 Referral dermatolo gist referral 2024 025 [facility], [address] [place] [address], [address], 03/17/2025 11:01:35 Procedures None recorded. Surgeries None recorded. Imaging XR, knee, 3 view [email or web address] [place] [address] (Imaging), [address] [place] [address], [id number], 03/17/2025 10:24:08 Medication Orders None recorded. Patient TargetsNo targets recorded. Patient InstructionsNo instructions recorded. 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 ?BCC upper right eyelid Referring Physician: Ginny Purcell, Internal Medicine, Encounter Date: 03/17/2025 Problems Name Problem SNOMED Code Status Onset Date Resolution Date Notes Provider Name and Address Organization Details Recorded Time Temporoma ndibular joint disorder 62878576 Active 2019 Daljit Irby DO [address] [place] [address], [address], [facility] 0 11:11:51 Carpal tunnel syndrome of right wrist 557552425286 108 Active 2019 Daljit Irby DO [address] [place] [address], [address], [facility] 0 11:12:02 Chronic obstructi ve pulmonary disease 89178383 Active 2021 Daljit Irby DO [address] [place] [address], [address], [facility] 2 10:56:45 Multiple gastric ulcers 223325472 Active 2021 Daljit Irby DO [address] [place] [address], [address], [facility] 2 10:57:21 Insomnia 265971349 Active 2021 Daljit Irby DO [address] [place] [address], [address], [facility] 2 10:59:47 Panic disorder 140219332 Active 2021 Daljit Irby DO [address] [place] [address], [address], [facility] 2 11:01:07 Moderate recurrent major depressio n 94223159 Active 2021 GINNY PURCELL, TANNER [address] [place], [address], [facility] 2 11:43:50 Anxiety 47697854 Active 2021 TANNER LOCKE [address] [place], [address], [facility] 2 12:22:43 Melena 6728839 Active 2021 TANNER LOCKE [address] [place] [address], [address], [facility] 2 10:33:58 Cobalamin deficienc y 703319232 Active 2021 TANNER LOCKE [address] [place] [address], [address], [facility] 2 10:34:46 Iron deficienc y anemia 25432605 Active 2021 TANNER LOCKE [address] [place] [address], [address], [facility] 2 12:03:20 Injury of knee 408707628 Active 2022 TANNER LOCKE [address] [place] [address], [address], [facility] 3 13:56:04 Injury of knee 978041940 Active 2022 TANNER LOCKE [address] [place] [address], [address], [facility] 3 13:56:09 Swelling of knee joint 331908510 Active 2022 TANNER LOCKE [address] [place] [address], [address], [facility] 3 13:57:51 Infected bursa 223940502 Active 2022 TANNER LOCKE [address] [place] [address], [address], [facility] 3 10:28:39 Hematoma of right lower leg 263116788426 58650 Active 2022 TANNER LOCKE [address] [place], [address], [facility] 3 10:29:45 Prepatell ar bursitis of right knee 935477974564 100 Active 2022 Daljit Irby, DO [address] [place] [address], [address], [facility] 3 14:11:50 Infection of prepatell ar bursa of right knee 966569812613 9105 Active 2022 Daljit Irby, DO [address] [place] [address], [address], [facility] 3 14:12:07 Exacerbat ion of moderate persisten t asthma 712318996 Active 2022 TANNER LOCKE [address] [place] [address], [address], [facility] 3 11:47:09 Urinary incontine nce 047154761 Active 2022 TANNER LOCKE [address] [place] [address], [address], [facility] 3 11:48:56 Acute bronchiti s with bronchosp asm 64698133 Active 2022 TANNER LOCKE [address] [place], [address], [facility] 3 10:18:40 Smoker 45442108 Active 2022 TANNER LOCKE [address] [place], [address], [facility] 3 10:20:27 Pneumonia 333839935 Active 2022 TANNER LOCKE [address] [place], [address], [facility] 3 11:11:32 Tardive dyskinesi a 251563397 Active 2023 TANNER LOCKE [address] [place], [address], [facility] 4 09:52:31 Hyperlipi demia 68476358 Active 2023 TANNER LOCKE [address] [place], [address], [facility] 4 10:52:48 Dyspnea 283750132 Active 2023 TANNER LOCKE [address] [place], [address], [facility] 4 10:54:03 Acute respirato ry failure 97356970 Active 2023 TANNER LOCKE [address] [place] [address], [address], [facility] 4 15:06:47 Mood disorder 72558557 Active 2023 TANNER LOCKE [address] [place] [address], [address], [facility] 4 15:11:46 Acute bronchiti s 46965620 Active 2024 TANNER LOCKE [address] [place] [address], [address], [facility] 5 10:23:01 Pain of knee region 0590556827 Active 2024 TANNER LOCKE [address] [place] [address], [address], [facility] 5 09:35:43 Increased frequency of urination 736868179 Active 2024 TANNER LOCKE [address] [place] [address], [address], [facility] 5 09:38:11 Bilateral lower limb edema 384782371 Active 2024 TANNER LOCKE [address] [place] [address], [address], [facility] 5 09:38:54 Basal cell carcinoma of upper eyelid 052448110 Active 2024 TANNER LOCKE [address] [place], [address], [facility] 5 09:43:50 Asthma 729341511 [facility] 10:31:25 Gastroeso phageal reflux disease 195242215 Active 2017 [facility] 10:31:31 Bipolar disorder 96940051 Active 2017 Otilia Santo NP, S [address] [place] [address], [address], [facility] 8 10:56:03 Depressiv e disorder 49983549 Active 2017 Otilia Santo NP, S [address] [place] [address], [address], [facility] 8 10:56:12 Problem Notes None recorded. Procedures Surgical History Date Name Laterality Status Provider Name and Address Organization Details Recorded Time 5 Most Recent Mammogram completed Patsy Estrada [facility] 12/29/2024 08:15:39 5 Colonoscopy completed Itzel Currie [facility] 10/05/2019 11:11:27 Imaging Results None recorded. Procedure Notes None recorded. Medical Equipment None [...] Available Not Available prednisone 10 mg tablet PLEASE SEE ATTACHED FOR DETAILED DIRECTION S active Not Available Not Available No t Available doxycycline hyclate 100 mg capsule TAKE 1 CAPSULE BY MOUTH TWICE A DAY FOR 14 DAYS 02/09 completed Not Available Not Available Not Available benztropine 0.5 mg tablet TAKE 1 TABLET BY MOUTH EVERY MORNING AND TAKE 2 TABLETS BY MOUTH AT NIGHT. 03/17 completed Not Available Not Available Not Available lamotrigine 200 mg tablet TAKE 1 [...] Not Available Not Available Not Available prednisone 20 mg tablet TAKE 1 [...] TAKE 1 CAPSULE BY MOUTH EVERY DAY needs appt for further refills. call office 2024 active Not Available Not Available Not Avai lable tramadol 50 mg tablet TAKE 1 TABLET [...] TAKE 1 TABLET BY MOUTH EVERY DAY 03/17 completed Not Available Not Available Not Available omeprazole 20 mg capsule,del ayed release TAKE [...] PUFF EVERY DAY BY INHALATIO N ROUTE 03/17 completed Not Available Not Available Not Available Rexulti 0.5 mg tablet Take 1 tablet every day by oral route for 30 days. 02/09 completed Not Available Not Available Not Available Trelegy Ellipta 100 mcg-62.5 mcg-25 mcg powder for inhalation INHALE 1 PUFF INTO THE LUNGS EVERY DAY FOR 30 DAYS active Not Available Not Available No t Available Proair Digihaler 90 mcg/actuati on aerosol powder breath act, sensor INHALE 2 PUFFS EVERY 4 HOURS BY INHALATIO N ROUTE. 2022 active Not Available Not Available Not Avai lable Vitals Date Recorded Oxygen saturation Oxygen saturation in Arterial blood by Pulse oximetry Heart rate Systolic blood pressure Diastolic blood pressure Provider Name and Address Organization Details Last Updated DateTime 5 93 % 93 % 68 /min 110 mm[Hg] 74 mm[Hg] Shellie Springer [facility] 09:26:23 Social History Question Answer Notes LastModified by Organizat ion Details LastModified Time Tobacco Smoking Status Current Every Day Smoker Not Available [facility] 07/26/2020 03:36:23 What Was The Date Of Your Most Recent Tobacco Screening? 03/02/2024 [email or web address] Information not available 03/02/2024 How Much Tobacco Do You Smoke? 1 PPD 5/6 Per Day [email or web address] Information not available 03/17/2025 Sex: Unknown Functional Status Question Answer Note LastModified by Organization D etails LastModified Time Do you or have you ever used any other forms of tobacco or nicotine? No [email or web address] Information not available 05/24/2023 Mental Status None recorded. Family History Nothing Reported. Medical History No medical history recorded. Gynecological History Statement/Question Response Most Recent Mammogram 12/24/2024 Obstetrics History GPAL:G 0 P 0 0 0 0 Immunizations Vaccine Type Date Status Note Provider Nam e and Address Organization Details Recorded Time COVID-19 vaccine, vector-nr, rS-Ad26, PF, 0.5 mL 01/28/2021 completed Jennifer Melendez [facility] 03/06/2022 08:36:41 Past Encounters Encounter ID Performer Location Encounter Start Date Encounter Closed Date Diagnosis/Indication Diagnosis SNOMED-CT Code Diagnosis ICD10 Code Diagnosis Note [id number] Daljit Irby DO [facility] [address] [facility] [address] 03/17/2025 09:13:58 03/17/2025 10:24:07 Pain of knee region 2651111051 M25.561 M25.562 still too much swelling US knee Increased frequency of urination 802737460 R35.0 Bilateral lower limb edema 490022233 R60.0 will set up with lab work Cobalamin deficiency 190 663186 E53.8 needs recheck blood work Iron defic iency anemia 75880369 D50.0 needs recheck BW Basal cell carcinoma of upper eyelid 967790380 C44.1121 will set up with derm for evaluation Health Concerns Section Related Observation LastModified by Organization Detai ls LastModified Time None Recorded Concern Status LastModified by Organization Details LastModified Time None Recorded Payers Encounter Date Sequence Insurance Name Policy Number Policy Chairez Covered Member ID Chairez Member ID Guarantor Name 03/17/2025 1 [employer] (EPO) [id number] Lissette Sanches [id number] Lissette Sanches Notes Date Note Type Note Provider Name a nd Address Organization Details Recorded Time 03/17/2025 text/html f/u medications the patient has bilateral knee pain L>Rthe patient states it has worsened sig in the last three weeksgetting instability, her L knee gives out, has happened about 3 times so far in the last three weeks the patient is going to the bathroom constantly especially at nightthe patient reports that she has a sense of incomplete voiding the patient denies blood or color change of the urine the patient notes a lot of pressure at nightno other changes or triggers recommended blood work and urine sample setting up with patient for XRs of her knees ongoing swelling of her legs around the same time her knees started to bother her, probably multifactorial for the swelling, will also check her kidneys needs her lab work done again as well, over a year since she last had lab work done to check her levels TANNER LOCKE [address] [place] [address], [place], [address], [facility] 03/17/2025 09:51:47 OBGyn Episode No OBEpisode recorded.
[2025-03-17 13:12] LABS: MANUAL DIFF FLAG NO
[2025-03-17 13:18] LABS: Appearance Urine Clear; Color Urine Straw; Glucose Urine UA Negative (Negative); Leukocyte Esterase Urine Negative (Negative); Nitrite Urine Negative (Negative); Specific Gravity - Urine <= 1.005 (1.005-1.025); Urine Blood Negative (Negative); Urine Ketones Negative (Negative); Urine Protein Negative (Neg-Trace)
[2025-03-17 13:29] LABS: Basophils Absolute Auto 0.1 X10*3/uL (0.0-0.2); Basophils Percent Auto 1.3 % (0-2); Eosinophils Absolute Auto 0.4 X10*3/uL (0.0-0.4); Eosinophils Percent Auto 4.6 % (0-4); Hematocrit 38.1 % (37.0-47.0); Hemoglobin 11.3 g/dl (12.0-16.0); Imm Gran Abs Auto 0.04 X10*3/uL (0.00-0.03); Imm Gran Pct Auto 0.5 % (0.0-0.4); Lymphocytes Percent Auto 23.4 % (20-40); Mean Corpuscular HGB Conc 29.7 g/dl (31.0-35.0); Mean Corpuscular Hemoglobin 20.7 pg (27.0-33.0); Mean Corpuscular Volume 69.9 fL (80.0-98.0); Mean Platelet Volume 10.1 fL (9.4-12.3); Monocytes Absolute Auto 0.8 X10*3/uL (0.1-1.2); Monocytes Percent Auto 9.2 % (2-11); Neutrophils Absolute Auto 5.3 x10*3/uL (2.0-8.3); Platelet Count 330 X10*3/uL (160-400); Red Blood Count 5.45 X10*6/uL (4.20-5.50); Red Cell Distribution Width 16.7 % (11.0-16.0); White Blood Count 8.7 X10*3/uL (4.8-10.8)
[2025-03-17 14:01] LABS: Estimated Average Glucose 111 mg/dL; Hemoglobin A1c % 5.5 % (<6.0)
[2025-03-17 14:11] LABS: Alanine Aminotransferase 13 U/L (0-31); Albumin Level 4.3 g/dL (3.5-5.0); Alkaline Phosphatase 78 U/L (39-117); Anion Gap 13 (12-20); Aspartate Amino Transferase 20 U/L (5-31); Bilirubin Total 0.4 mg/dL (0.0-1.0); Blood Urea Nitrogen 13 mg/dL (9-16); Calcium 10.4 mg/dL (8.4-10.2); Carbon Dioxide 26 mmol/L (22-29); Chloride 109 mmol/L (96-108); Estimated Glomerular Filt Rate > 60; Glucose Random 91 mg/dL (60-115); Iron 77 mcg/dL (30-160); Magnesium 2.2 mg/dL (1.6-2.6); Percent Iron Saturation 26 % (15-50); Potassium 4.5 mmol/L (3.3-5.1); Sodium 143 mmol/L (135-145); Total Iron Binding Capacity 293 mcg/dL (228-428); Total Protein 6.8 g/dL (6.5-8.0); Unsaturated Iron Binding 216 ug/dL; Uric Acid 3.5 mg/dL (2.4-5.7)
[2025-03-17 14:13] LABS: Ferritin 136 ng/mL (10-250); Free T4 (Free Thyroxine) 0.83 ng/dL (0.71-1.85); Thyroid Stimulating Hormone 0.86 uIU/mL (0.32-4.0)
[2025-03-17 14:19] LABS: Erythrocyte Sedimentation Rate 7 MM/HR (0-20)
[2025-03-17 14:30] LABS: Folate 8.1 ng/mL (> or = 4.0); Vitamin B12 299 pg/mL (200-900)
== END 2025-03-17 09:51 | disposition home or self-care (01) ==
LOC: HO.MANLDS 09:50
PROVIDERS: Visit Provider Physician Assistant
DX: M25.561 Pain in right knee (principal); R35.0 Frequency of micturition; R60.0 Localized edema; E53.8 Deficiency of other specified B group vitamins; D50.0 Iron deficiency anemia secondary to blood loss (chronic)
CPT/HCPCS: 36415; 80053; 81003; 82607; 82728; 82746; 83036; 83540; 83735; 84439; 84443; 84550; 85025; 85652; 86140

== ENCOUNTER 2025-03-30 07:52 | Outpatient (REF) | payer OTHER, SELFPAY ==
--- NOTE | ~2025-03-30 | XR_ITS ---
EXAMINATION: XR KNEE 3 VIEWS LEFT HISTORY: PAIN COMPARISON: Correlation is made with a standing AP view of the left knee dated 11/08/2022. FINDINGS: Three views of the left knee are submitted. Osseous mineralization is normal. There is no fracture or dislocation. There is mild narrowing of the patellofemoral compartment. There is a trace joint effusion. XR/XR knee LT 3V IMPRESSION: Trace joint effusion. Mild narrowing of the patellofemoral compartment. Electronically signed by: Bib Walker MD 03/30/2025 08:27 AM EDT
--- NOTE | ~2025-03-30 | XR_ITS ---
EXAMINATION: XR KNEE 3 VIEWS RIGHT HISTORY: PAIN COMPARISON: Comparison is made with the prior examination dated 11/23/2022. FINDINGS: Three views of the right knee are submitted. Osseous mineralization is normal. There is no fracture or dislocation. There is mild osteoarthritis of the medial and patellofemoral compartments, with joint space narrowing and osteophyte formation. There is a trace joint effusion. XR/XR knee RT 3V IMPRESSION: Trace joint effusion. Mild osteoarthritis of the medial and patellofemoral compartments. Electronically signed by: Bib Walker MD 03/30/2025 08:28 AM EDT
--- OUTSIDE RECORDS SUMMARY | 2025-03-30 07:54 | XMS_ITS | Data Portability ---
Author Organization [facility], Telehealth Patient Home Address [address] [place] [address] Assessment No assessment recorded. Plan of Treatment Reminders Order Date Submit Date Provider Last Modified By Organization Details Last Modified Time Details Appointments None recorded. Lab uric acid, serum or plasma 2024 025 [facility], [address] [place] [address], [address], 09:43:02 urinalysis complete, reflex culture 2024 025 [facility], [address] [place] [address], [address], 09:43:01 hemoglobin A1c, QN, blood 2024 025 [facility], [address] [place] [address], [address], 5 09:43:02 vitamin B12 + folate, serum or blood 2024 025 [facility], [address] [place] [address], [address], 5 09:43:02 iron + TIBC + ferritin, serum 2024 025 [facility], [address] [place] [address], [address], 09:43:01 CMP, serum or plasma 2024 025 [facility], [address] [place] [address], [address], 5 09:43:01 CBC w/ auto diff 2024 025 [facility], [address] [place] [address], [address], 5 09:43:01 magnesium, serum or plasma 2024 025 [facility], [address] [place] [address], [address], 5 09:43:01 ESR (erythrocy te sedimentat ion rate), blood 2024 025 [facility], [address] [place] [address], [address], 5 09:43:02 C-reactive protein, quantitati ve, serum or plasma 2024 025 [facility], [address] [place] [address], [address], 5 09:43:02 TSH + free T4, serum 2024 025 [facility], [address] [place] [address], [address], 5 09:43:02 lipid panel, serum 2023 024 [facility], [address] [place] [address], [address], 4 11:05:54 CBC w/ auto diff 2023 024 [facility], [address] [place] [address], [address], 4 11:05:54 CMP, serum or plasma 2023 024 [facility], [address] [place] [address], [address], 4 11:22:06 urinalysis complete, reflex culture 2023 024 [facility], [address] [place] [address], [address], 4 11:01:07 iron + TIBC + ferritin, serum 2023 024 [facility], [address] [place] [address], [address], 4 11:05:54 vitamin B12 + folate, serum or blood 2023 024 [facility], [address] [place] [address], [address], 4 11:05:54 homocystei ne, serum or plasma 2023 024 [facility], [address] [place] [address], [place], [address], 4 11:17:29 TSH + free T4, serum 2023 024 [facility], [address] [place] [address], [address], 4 11:06:30 Referral dermatolog ist referral 2024 025 [email or web address] 10 [facility], [address] [place] [address], [address], 5 10:01:06 pulmonolog ist referral 2023 024 [email or web address] Supa Sullivan MD, [address] [place] [address] [place], [address], 4 14:25:12 Procedures None recorded. Surgeries None recorded. Imaging XR, knee, 3 view 2024 025 [facility] (Imaging), [address] [place], [address], 5 10:24:08 PFT, complete - [id number] 03/04/24-09/16 024 [facility], [address] [place], [address], 4 08:41:34 XR, chest, 2 view 2022 023 [facility] (Imaging), [address] [place], [address], 3 08:40:25 Medication Orders Myrbetriq 25 mg tablet,ext ended release [address] [id number] [address] [facility] [place], [address], 4 10:54:00 prednisone 10 mg tablet 2023 024 [facility] #0693, [address] [place], [address], 4 10:54:41 Wellbutrin XL 150 mg 24 hr tablet, extended release 2022 023 dru [facility]acy #0693, [address] [place], [address], 4 09:07:42 prednisone 10 mg tablet 2022 023 [email or web address] [facility] #0693, [address] [place], [address], 4 10:32:59 levofloxac in 500 mg tablet [address]/Pharmacy #0693, [address] [place], [address], 4 10:32:44 duloxetine 60 mg capsule,de layed release [address] [facility] [address] [facility] [place], [address], 3 10:18:19 prednisone 10 mg tablet 2022 023 [email or web address] [facility] [address] [facility] [place], [address], 4 10:32:59 Zithromax Z-Tim 250 mg tablet 2022 023 [facility] [address] [facility] [place], [address], 3 14:12:12 albuterol sulfate HFA 90 mcg/actuat ion aerosol inhaler 2022 023 [email or web address] [facility] [address] [facility] [place], [address], 4 14:51:15 lorazepam 0.[address] [address] [place], [address], 3 11:51:57 oxybutynin chloride ER 5 mg tablet,ext ended release 24 hr 2022 023 [facility] [address] [facility] [place], [address], 4 10:50:31 Patient TargetsNo targets recorded. Patient InstructionsNo instructions recorded. 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 [email or web address] [facility] (Medical Records) [address] [place], [address], 05/31/2023 11:13:40 02/15/20 24 02/15/2024 XR, chest , 1 view No observ ation record ed. [address] (Medical Records) [address] [place], [address], 02/18/2024 08:30:04 02/16/20 24 02/16/2024 XR, chest , 1 view No observ ation record ed. [address] (Medical Records) [address] [place], [address], 02/18/2024 08:30:20 10/07/19 25 10/05/2024 XR, chest , 2 view No observ ation record ed. [address] (Medical Records) [address] [place], [address], 10/07/2024 09:20:31 11/01/19 25 11/01/2024 XR, shoul aleks, 2 or more view No observ ation record ed. [email or web address] [facility] (Medical Records) [address] [place], [address], 11/02/2024 08:33:01 12/29/1912/24/2024 MAMMO , scree guzman, digit al, bilat eral No observ ation record ed. [email or web address] [facility]'s [address] [place], [address], 12/29/2024 08:15:55 Result Notes None recorded. Problems Name Problem SNOMED Code Status Onset Date Resolution Date Notes Provider Name and Address Organization Details Recorded Time Temporoma ndibular joint disorder 24593284 Active 2019 Daljit Irby DO [address] [place] [address], [address], [facility] 0 11:11:51 Carpal tunnel syndrome of right wrist 729338124773 108 Active 2019 Daljit Irby DO [address] [place] [address], [address], [facility] 0 11:12:02 Chronic obstructi ve pulmonary disease 20625478 Active 2021 Daljit Irby DO [address] [place] [address], [address], [facility] Medicine 2 10:56:45 Multiple gastric ulcers 240760233 Active 2021 Daljit Irby DO [address] [place] [address], [address], [facility] 2 10:57:21 Insomnia 472089433 Active 2021 Daljit Irby DO [address] [place] [address], [address], [facility] Medicine 2 10:59:47 Panic disorder 935513923 Active 2021 Daljit Irby DO [address] [place] [address], [address], [facility] 2 11:01:07 Moderate recurrent major depressio n 68306516 Active 2021 TANNER LOCKE [address] [place] [address], [address], [facility] 2 11:43:50 Anxiety 64707207 Active 2021 TANNER LOCKE [address] [place] [address], [address], [facility] 2 12:22:43 Melena 7372976 Active 2021 TANNER LOCKE [address] [place], [address], [facility] 2 10:33:58 Cobalamin deficienc y 294463013 Active 2021 TANNER LOCKE [address] [place], [address], [facility] 2 10:34:46 Iron deficienc y anemia 31491496 Active 2021 TANNER LOCKE [address] [place], [address], [facility] 2 12:03:20 Injury of knee 449053564 Active 2022 TANNER LOCKE [address] [place] [address], [address], [facility] 3 13:56:04 Injury of knee 478916984 Active 2022 TANNER LOCKE [address] [place] [address], [address], [facility] 3 13:56:09 Swelling of knee joint 309127770 Active 2022 TANNER LOCKE [address] [place] [address], [address], [facility] 3 13:57:51 Infected bursa 027875850 Active 2022 TANNER LOCKE [address] [place] [address], [address], [facility] 3 10:28:39 Hematoma of right lower leg 310473343990 31681 Active 2022 TANNER LOCKE [address] [place] [address], [address], [facility] 3 10:29:45 Prepatell ar bursitis of right knee 188684293071 100 Active 2022 Daljit Irby DO [address] [place], [address], [facility] 3 14:11:50 Infection of prepatell ar bursa of right knee 775465162962 9105 Active 2022 Daljit Irby DO [address] [place], [address], [facility] Internal [facility] 3 14:12:07 Exacerbat ion of moderate persisten t asthma 473821121 Active 2022 TANNER LOCKE [address] [place], [address], [facility] 3 11:47:09 Urinary incontine nce 159378772 Active 2022 TANNER LOCKE [address] [place] [address], [address], [facility] 3 11:48:56 Acute bronchiti s with bronchosp asm 76592716 Active 2022 TANNER LOCKE [address] [place] [address], [address], [facility] 3 10:18:40 Smoker 80649917 Active 2022 TANNER LOCKE [address] [place] [address], [address], [facility] 3 10:20:27 Pneumonia 051585208 Active 2022 TANNER LOCKE [address] [place], [address], [facility] 3 11:11:32 Tardive dyskinesi a 850118095 Active 2023 TANNER LOCKE [address] [place], [address], [facility] 4 09:52:31 Hyperlipi demia 73271718 Active 2023 TANNER LOCKE [address] [place], [address], [facility] 4 10:52:48 Dyspnea 238411742 Active 2023 TANNER LOCKE [address] [place], [address], [facility] 4 10:54:03 Acute respirato ry failure 63663982 Active 2023 TANNER LOCKE [address] [place], [address], [facility] 4 15:06:47 Mood disorder 98179663 Active 2023 TANNER LOCKE [address] [place], [address], [facility] 4 15:11:46 Acute bronchiti s 33858320 Active 2024 TANNER LOCKE [address] [place] [address], [address], [facility] 5 10:23:01 Pain of knee region 8389885399 Active 2024 TANNER LOCKE [address] [place] [address], [address], [facility] 5 09:35:43 Increased frequency of urination 838883540 Active 2024 TANNER LOCKE [address] [place] [address], [address], [facility] 5 09:38:11 Bilateral lower limb edema 430261334 Active 2024 TANNER LOCKE [address] [place] [address], [address], [facility] 5 09:38:54 Basal cell carcinoma of upper eyelid 409440301 Active 2024 TANNER LOCKE [address] [place] [address], [address], [facility] 5 09:43:50 Asthma 588537269 Active 2017 [facility] [place] 8 10:31:25 Gastroeso phageal reflux disease 158667115 Active 2017 Stacie Schulzabhilash mcginnis [facility] 8 10:31:31 Bipolar disorder 02119557 Active 2017 Otilia Santo NP, S [address] [place], [address], [facility] 8 10:56:03 Depressiv e disorder 45990785 Active 2017 Otilia Santo NP, S [address] [place], [address], [facility] 8 10:56:12 Problem Notes None recorded. Procedures Surgical History Date Name Laterality Status Provider Name and Address Organization Details Recorded Time Most Recent Mammogram completed Patsy Estrada [facility] 12/29/2024 08:15:39 5 Colonoscopy completed Itzel Currie [facility] 10/05/2019 11:11:27 Imaging Results None recorded. Procedure [...] BY MOUTH THREE TIMES A DAY NEEDED active Not Available Not Available No t Available risperidone 4 mg tablet TAKE 1 TABLET [...] INTO THE LUNGS EVERY 4 HOURS NEEDED 2024 active Not Available Not Available Not Avai lable Vitamin B-12 1,000 mcg tablet TAKE 1 [...] in Arterial blood by Pulse oximetry Systolic And Diastolic Provider Name and Address Organization Details Last Updated DateTime 4 157.48 cm 29.2 kg/m2 53390.4 2 g 111 /min 98 % 98 % 134/84 mm[Hg] Patsy Estrada [facility] 4 10:35:07 Date Recorded Body height Body mass index (BMI) Body weight Heart rate Oxygen saturation Oxygen saturation in Arterial blood by Pulse oximetry Systolic And Diastolic Provider Name and Address Organization Details Last Updated DateTime 3 157.48 cm 35.8 kg/m2 63630.1 g 86 /min 92 % 92 % 148/80 mm[Hg] Court De La Rosa [facility] 3 11:32:57 Date Recorded Body height Body mass index (BMI) Body weight Systolic And Diastolic Provider Name and Address Organization Details Last Updated DateTime 03/02/2024 157.48 cm 29.8 kg/m2 47892.56 g 128/80 mm[Hg] Courtgemma Choudharymond [facility] 03/02/2024 14:46:35 Date Recorded Oxygen saturation Oxygen saturation in Arterial blood by Pulse oximetry Heart rate Systolic And Diastolic Provider Name and Address Organization Details Last Updated DateTime 03/17/2025 93 % 93 % 68 /min 110/74 mm[Hg] Shellie Ibarra [facility] 5 09:26:23 Date Recorded Body height Body mass index (BMI) Body weight Heart rate Oxygen saturation Oxygen saturation in Arterial blood by Pulse oximetry Systolic And Diastolic Provider Name and Address Organization Details Last Updated DateTime 3 157.48 cm 35.8 kg/m2 30351.1 g 94 /min 92 % 92 % 138/80 mm[Hg] Court De La Rosa [facility] 3 10:09:27 Social History Question Answer Notes LastModified by Organizat ion Details LastModified Time Tobacco Smoking Status Current Every Day Smoker Not Available [facility] 07/26/2020 03:36:23 What Was The Date Of Your Most Recent Tobacco Screening? 03/02/2024 [email or web address] Information not available 03/02/2024 How Much Tobacco Do You Smoke? 1 PPD 5/6 Per Day [email or web address] Information not available 03/17/2025 Sex: Unknown Functional Status Question Answer Note LastModified by Organization D etails LastModified Time Do you or have you ever used any other forms of tobacco or nicotine? No [email or web address] Information not available 05/24/2023 Mental Status None recorded. Family History Nothing Reported. Medical History No medical history recorded. Gynecological History Statement/Question Response Most Recent Mammogram 12/24/2024 Obstetrics History GPAL:G 0 P 0 0 0 0 Immunizations Vaccine Type Date Status Note Provider Nam e and Address Organization Details Recorded Time COVID-19 vaccine, vector-nr, rS-Ad26, PF, 0.5 mL 01/28/2021 completed Jennifer mcginnis [facility] 03/06/2022 08:36:41 Past Encounters Encounter ID Performer Location Encounter Start Date Encounter Closed Date Diagnosis/Indication Diagnosis SNOMED-CT Code Diagnosis ICD10 Code Diagnosis Note [id number] Daljit Yady Irby [facility] [address] [facility], [place] [address] 03/19/2018 10:27:43 03/19/2018 16:04:47 Acute bronchitis 43632330 J20.9 Tobacco de pendence syndrome 33053195 F17.200 [id number] Daljit Yady Irby [facility] [address] [facility], [place] [address] 07/11/2018 11:15:15 07/11/2018 13:37:08 Asthma 711584684 J45.909 worse with this infection so will need pred taper Pneumonia 330733363 J18. 9 treated with abx [id number] Daljit Irby [facility] Internal [address], [place] [address] 10/05/2019 11:00:17 10/05/2019 11:21:04 Asthma 682830775 J45.909 has been stable and is ok here Carpal jonathan shoaib syndrome of right wrist 8400615481 27338 G56.01 will cont the ibuprof Temporoman dibular joint disorder 76646857 M26.609 will cont the ibuprof Screening mammography 24 968082 Z12.31 Adult heal th examination 392638010 Z00.00 Tobacco de pendence syndrome 56790874 F17.200 [id number] Daljit Irby [facility] [address] [facility], [place] [address] 12/20/2021 10:25:58 12/20/2021 13:56:24 Chronic obstructive pulmonary disease 17633097 J44.9 we are going to begin her on trelegy will follow up in a few weeks samples of 200mg dose given Gastroesop hageal reflux disease 808118689 K21.9 seems stable Depressive disorder 9827 9007 F32.A follows her psychiatri st Multiple g astric ulcers 808078890 K25.9 had a signif icant bleed with hgb down to 7 we will order cbc and rechj uin 1 month Insomnia 859899139 G47.0 0 Panic disorder 232074776 F41.0 we will provide temporary lorazepam [id number] Daljit Irby [facility] [address] [facility] [address],[place] [address] 12/27/2021 11:18:02 01/01/2022 08:30:58 Insomnia 282878866 G47.09 will fu if still having issues picking Moderate r ecurrent major depression 12578647 F33.1 will start on sertraline and resubmit seroquel dosage [id number] Daljit Irby [facility] [address] [facility] [address],[place] [address] 12/29/2021 10:30:37 01/01/2022 12:14:24 Bipolar disorder 27147607 F31.0 stable Depressive disorder 3548 9007 F32.0 improved Anxiety 27799520 F41.1 improved [id number] Daljit Irby [facility] [address] [facility] [address] [place] [address] 01/19/2022 11:02:49 01/19/2022 11:47:03 Active or passive immunization 657923838 Z23 will consider shingles and Tdap Panic disorder 106483289 F41.0 lorazepam was not too helpful Chronic ob structive pulmonary disease 26189217 J44.9 we are going to begin her on trelegy will follow up in a few weeks samples of 200mg dose givenseems to be helping she is breathing better Anxiety 95727418 F41.9 as above she is doing ok overall and id feeling betterwe discussed the poss of new med for the bipolar she will need to sidcuss with her psych (caplyta) Temporoman dibular joint disorder 46651959 M26.609 will cont the ibuprof [id number] Daljit Irby [facility] [address] [facility] [address],[place] [address] 03/23/2022 08:40:47 03/23/2022 14:10:34 Carmen 5517168 K92.1 will start work up for melena Cobalamin deficiency 190 924096 E53.8 needs refill Insomnia 844677518 G47.0 9 stable on medication Moderate r ecurrent major depression 48047899 F33.1 refill Gastroesop hageal reflux disease 449958043 K21.00 increase to 40 mg of omeprazole until source of bleed can be determined [id number] Daljit Irby [facility] [address] [facility],[place] [address] 07/25/2022 08:54:50 07/25/2022 12:22:55 Asthma 597158435 J45.40 will start on neb with solution Moderate r ecurrent major depression 83380713 F33.1 refill needed Insomnia 304212490 G47.0 9 stable on medication Iron defic iency anemia 22693419 D50.0 will refill for patientdid call it in but haven't gotten a refill request yet [id number] Daljit Irby [facility] [address] [facility],[place] [address] 10/10/2022 13:26:14 10/10/2022 16:09:00 Injury of knee 863461907 S89.91XA will fu with repeat XR in two weeks Swelling o f knee joint 660348024 M25.462 will start dual treatment with pred and tramadol Chronic ob structive pulmonary disease 19120955 J41.8 given samplestre legy works really well for her [id number] Daljit Irby [facility] [address] [facility],[place] [address] 10/15/2022 14:34:37 10/15/2022 16:06:12 Injury of knee 201546620 S89.91XA still too much swelling US knee Swelling o f knee joint 771567813 M25.462 severe swellingun able to drain any fluid off the patientjus t bleeding Chronic ob structive pulmonary disease 40894311 J41.8 given samplestre legy works really well for her [id number] Daljit Irby [facility] [address] [facility],[place] [place] [address] 11/30/2022 13:40:24 11/30/2022 15:58:43 Moderate recurrent major depression 16382399 F33.1 as noted no major changes Screening mammography 24 050149 Z12.31 Prepatella r bursitis of right knee 0541707482 70877 M70.41 MUST be seen by a competent ortho Infection of prepatellar bursa of right knee 3414438824 290655 M71.161 appears now to have a superficia l cellulitic appearance now spreading [id number] Daljit Irby [facility] [address] [facility],[place] [address] 02/25/2023 11:05:10 02/25/2023 13:13:36 Asthma 871746521 J45.40 will start on neb with solution Exacerbati on of moderate persistent asthma 039315988 J45.41 will start on standard treatment Moderate r ecurrent major depression 76713123 F33.1 refill needed Urinary incontinence 165 427005 N39.42 [id number] Daljit Irby [facility] [address] [facility],[place] [address] 05/24/2023 10:06:01 05/24/2023 11:27:12 Depressive disorder 47740124 F32.0 stable Acute bron chitis with bronchospasm 37153356 J20.9 will set up with prednisone + levoCOVID test negative Smoker 24164897 F17.200 will start on wellbutrin for smoking [id number] Daljit Irby [facility] [address] [facility],[address] [facility] [address] 02/10/2024 10:22:57 02/10/2024 14:11:54 Urinary incontinence 661408279 N39.42 will switch out medication and fu with kidney and urine check Depression screening 171 267544 Z13.31 negative score Cobalamin deficiency 190 905905 E53.8 needs refill Iron defic iency anemia 93052121 D50.0 will refill for patientdid call it in but haven't gotten a refill request yet Hyperlipidemia 35607562 E78.2 will set up with recheck blood work Chronic ob structive pulmonary disease [id number] J41.8 given samplestre debora works really well for her Dyspnea [id number] R06.00 will set up with pred taper [id number] Daljit Irby [facility] Internal Medicine [address],[place] [address] 03/02/2024 14:34:00 03/03/2024 14:25:12 Depressive disorder [id number] F32.0 F33.1 stable Mood disorder [id number] F 31.0 stable Acute resp iratory failure [id number] J96.00 stable Chronic ob structive pulmonary disease [id number] J44.1 will f/u with pulm for evalordere d the PFT per pulm [id number] Daljit Irby [facility] Internal Medicine [address],[place] [address] 03/17/2025 09:13:58 03/17/2025 10:24:07 Pain of knee region [id number] M25.561 M25.562 still too much swelling US knee Increased frequency of urination [id number] R35.0 Bilateral lower limb edema [id number] R60.0 will set up with lab work Cobalamin deficiency 190 [id number] E53.8 needs recheck blood work Iron defic iency anemia [id number] D50.0 needs recheck BW Basal cell carcinoma of upper eyelid [id number] C44.1121 will set up with derm for evaluation Health Concerns Section Related Observation LastModified by Organization Detai ls LastModified Time None Recorded Concern Status LastModified by Organization Details LastModified Time None Recorded Advance Directives Directive None Recorded Payers Insurance Date Sequence Insurance Name Policy Number Policy Chairez Covered Member ID Chairez Member ID Guarantor Name 03/17/2025 1 [place] PRIOR TO 2022 - [facility] (MEDICAID) Lissette Sanches [id number] Lissette Sanches 03/17/2025 1 [facility] [id number] Lissette Sanches [id number] Lissette Sanches 03/17/2025 1 [place] [facility] Lissette Sanches [id number] Lissette Sanches 12/20/2021 1 *SELF PAY* Ba gilberto Sanches 03/17/2025 1 [employer] (EPO) [id number] Lissette Sanches [id number] Lissette Sanches Notes Date Note Type Note Provider Name and Address Organization Details Recorded Time 3 text/html c/o asthma exacerbation pt still [...] if it is effective [facility] [address] [place], [address], [facility] Internal Medicine 02/25/2023 11:58:55 3 text/html c/o pneumonia patient has hx of smokingrecurrent pneumonia, hx of COPDhaving exacerbation with probable bronchitis start on steriods and abx cont inhalers at home [facility] [address] [place], [address], [facility] Internal Medicine 05/24/2023 10:31:11 4 text/html [...] given order for it [facility] [address] [place], [address], [facility] Internal Medicine 02/10/2024 11:01:05 4 text/html [...] using her inhalers correctly [facility] [address] [place], [address], [facility] 03/02/2024 15:15:46 5 text/html f/u medications the patient has bilateral [...] done to check her levels [facility] [address] [place], [address], [facility] Internal Medicine 03/17/2025 09:51:47 OBGyn Episode No OBEpisode recorded.
== END 2025-03-30 07:53 | disposition home or self-care (01) ==
LOC: HO.XRAY 07:52
PROVIDERS: Visit Provider Physician Assistant
DX: M25.561 Pain in right knee (principal); M25.562 Pain in left knee
CPT/HCPCS: 73562

== ENCOUNTER → 2025-03-30 07:56 | Outpatient (BNV) | payer OTHER, SELFPAY | PROVIDERS: Visit Provider Radiology Diagnostic Radiology | DX: M25.562 Pain in left knee (principal); M25.561 Pain in right knee | CPT/HCPCS: 73562 ==

== ENCOUNTER → 2025-04-27 08:19 | Outpatient (BNV) | payer OTHER, SELFPAY | PROVIDERS: Emergency Provider Emergency Medicine; PCP Internal Medicine; Visit Provider Radiology Diagnostic Radiology | DX: J44.9 Chronic obstructive pulmonary disease, unspecified (principal); R06.02 Shortness of breath | CPT/HCPCS: 71046 ==

== ENCOUNTER 2025-04-27 08:53 | Emergency (ER) | payer OTHER, SELFPAY ==
--- NOTE | 2025-04-27 | ECG_ITS ---
Test Reason : dyspnea Blood Pressure : */* mmHG Vent. Rate : 102 BPM Atrial Rate : 102 BPM P-R Int : 146 ms QRS Dur : 72 ms QT Int : 328 ms P-R-T Axes : 31 14 47 degrees QTcB Int : 427 ms Sinus tachycardia Low voltage QRS Borderline ECG When compared with ECG of 15-Feb-2024 01:33, No significant change was found Referred By: Generic ED Physician Electronically Signed By: DAVID LEIGH
--- NOTE | ~2025-04-27 | XR_ITS ---
EXAMINATION: XR CHEST CLINICAL INFORMATION: sob, copd COMPARISON: 10/05/2024, 02/16/2024. TECHNIQUE: 2 views of the chest were obtained. FINDINGS: The cardiac, hilar, and mediastinal contours are normal. Aortic mural calcification. Mildly increased thoracic AP diameter. The lungs are hyperaerated, however clear bilaterally. There is no pneumothorax or pleural effusion. There is no focal osseous or soft tissue abnormality. Exaggerated thoracic kyphosis with degenerative changes. XR/XR chest 2V IMPRESSION: No active pulmonary disease. Electronically signed by: Inder Mazariegos MD 04/27/2025 09:24 AM EDT
[2025-04-27 08:57] VITALS: BP 153/71; PULSE 104; RESP 20; TEMP 36.8; O2SAT 83; BMI 33.1
--- NOTE | 2025-04-27 09:16 | ED.SOB ---
HPI - SOB/Dyspnea General Chief Complaint: Dyspnea Stated Complaint: SOB - COPD Time Seen by Provider: 04/27/25 09:15 Source: patient Mode of arrival: ambulatory Limitations: no limitations History of Present Illness ED Provider: DIANA GRAHAM PA-C HPI Narrative: 64-year-old female with pmhx significant for COPD presents to the ED today for evaluation of increasing shortness of breath x4 days. Also endorses cough productive of yellow sputum that began 1 week ago. She has been using her inhaler and nebulizers at home every four hours without improvement. She contacted her PCP earlier this week who placed her on a steroid taper. She has been on this for 4 days without improvement. Reports swelling to her LEs a few weeks ago that has since resolved. She typically requires 2 liters oxygen at night only. She has not had to wear this during the day. Denies fever, chills, chest pain, palpitations, lower extremity pain. Related Data Home Medications ?Medication ?Instructions ?Recorded ?Confirmed duloxetine 60 mg capsule,delayed 60 mg PO BID 09/01/21 02/15/24 release sprinkle lamotrigine 200 mg tablet 200 mg PO BEDTIME 09/01/21 02/15/24 ferrous sulfate 325 mg (65 mg 325 mg PO BEDTIME 02/14/22 02/15/24 iron) tablet ibuprofen 800 mg tablet 1 tab PO TID PRN Pain 02/14/22 02/15/24 quetiapine 25 mg tablet 1 tab PO BEDTIME 02/14/22 02/15/24 omeprazole 40 mg capsule,delayed 40 mg PO DAILY 07/03/22 02/15/24 release mirabegron 25 mg tablet,extended 25 mg PO DAILY 02/15/24 02/15/24 release 24 hr (Myrbetriq) Previous Rx's ?Medication ?Instructions ?Recorded lorazepam 0.5 mg tablet 0.5 mg PO BID PRN anxiety #10 tabs 09/30/21 albuterol sulfate 90 mcg/actuation 2 puff inhalation Q4-6H PRN 02/14/22 aerosol inhaler (ProAir HFA) shortness of breath or wheezing #8.5 grams albuterol sulfate 2.5 mg/3 mL 2.5 mg (3 mL) inhalation QID PRN 02/18/24 (0.083 %) solution for nebulization Shortness Of Breath Or Wheezing #180 mL amlodipine 5 mg tablet 5 mg PO DAILY #90 tabs 02/18/24 nicotine 21 mg/24 hr daily 1 patch transdermal DAILY #28 ea 02/18/24 transdermal patch prednisone 20 mg tablet 20 mg PO DAILY 7 days #7 tabs 11/01/24 prednisone 20 mg tablet 20 mg PO DAILY #3 tabs 12/15/24 amlodipine 5 mg tablet 5 mg PO DAILY #90 tabs 01/25/25 fluticasone furoate 100 1 ea inhalation DAILY #60 ea 01/25/25 mcg-vilanterol 25 mcg/dose inhalation powder (Breo Ellipta) cefuroxime axetil 500 mg tablet 500 mg PO BID 7 days #14 tabs 04/27/25 doxycycline hyclate 100 mg capsule 100 mg PO BID 7 days #14 caps 04/27/25 Allergies Allergy/AdvReac Type Severity Reaction Status Date / Time No Known Allergies Allergy Verified 04/27/25 09:04 Review of Systems Review of Systems: Yes all other systems are reviewed and are negative PMFSH Past Medical History Attestation statement: The following information was validated with the patient. Source: old records reviewed and nursing notes reviewed Medical History Mood disorder Tobacco use disorder Hx of head injury Anemia Panic anxiety syndrome Pelvic mass Anemia COPD (chronic obstructive pulmonary disease) Surgical History Hx of colonoscopy History of mandibular surgery H/O: hysterectomy Social History Social History Household Members: Spouse Housing: Apartment Do you presently have visiting nurse or other home services: Yes Alcohol intake: unknown Patient Tobacco Use Status: Current everyday Tobacco user Tobacco use type: Cigarette Cigarette Packs Per Day: 1 Cigarettes Per Day: 20.0 Years Smoked: 40 Second Hand Smoke Exposure: No Substance Use Type: Marijuana Advance Directives: No Advance Directives Information Provided: No service: No Current occupational status: employed Current occupation: [employer]/ left hand dominant Physical Exam Vital Signs: Vital Signs: Last Vital Signs Temp 98.3 F 04/27/25 13:28 Pulse 93 04/27/25 13:28 Resp 18 04/27/25 13:28 BP 134/62 04/27/25 13:28 Pulse Ox 92 04/27/25 13:28 O2 Del Method Room Air 04/27/25 13:28 O2 Flow Rate 2 04/27/25 10:52 BMI result Body Mass Index 33.1 Hhypoxic to 83 percent on room air, tachycardic to 104, hypertensive General: Well appearing, in no acute distress. Skin: Warm, dry, intact. No rashes or lesions. Head: Normocephalic, atraumatic. EENT: Hearing is intact b/l. Conjunctiva clear. Sclera is anicteric. PERRLA. EOM intact. Moist mucous membranes.? Neck: Supple without LAD Cardiac: Chest wall symmetric. RRR Lungs: Normal respiratory effort, no tripoding, diffuse expiratory wheezes throughout. No rhonchi, no crackle.s Back: No midline spinous or paraspinal tenderness. No step off deformity. Ext: No pitting edema, no calf tenderness. Neuro: AOx3. Normal speech. Ambulating with steady gait. Course Course Course Narrative: 1009 --patient tachycardic, leukocytosis to 13.4 with left shift, concern for COPD exacerbation -- patient meets SIRS criteria for sepsis. Sepsis protocol initiated. Lactic and blood cultures ordered. Ceftriaxone running. Fluids held until BNP results. 1311 -- leukocytosis to 13.4 with left shift. H&H stable. Chemistry without acute electrolyte abnormality requiring intervention. no tammie. liver function wnl. bnp 46. trop wnl at 4.2. ekg showing sinus tachycardia with a rate of 102 bpm, no acute ischemic changes or ST elevations. cxr showing changes consistent with COPD, no infiltrate or consolidation to suggest overlying pneumonia. > on ambulatory O2, patient desatted to 80% while on RA. she does not require O2 during the day at baseline. she has been requiring 2L while in ED to sustain 93%. Given concern for COPD exacerbation with hypoxic respiratory failure, I discussed the need for admission for further treatment. patient is declining at this time, stating that she needs to go home as she cares for another individual. I expressed the importance of staying for further treatment, risks discussed. patient continues to decline and states she would like to sign out AMA. I advised her to monitor her O2 sat at home and to wear her O2. advised to f/u with outpatient providers and informed her that she is welcome to return at any time for treatment. She is currently on a steroid taper - advised to continue this. I will be sending Ceftin and doxycycline to pharmacy to cover for COPD exacerbation. Medications Administered Discontinued Medications Generic Name Dose Route Start Last Admin Trade Name Gonzalo PRN Reason Stop Dose Admin Ceftriaxone Sodium 1 gm 04/27/25 09:31 04/27/25 10:21 Ceftriaxone Sodium 1 Gm Vial IVPUSH 04/27/25 09:32 1 gm ONCE ONE Administration Albuterol Sulfate 2.5 mg/ 0 mg 04/27/25 09:53 04/27/25 09:59 Albuterol/Ipratropium 3 ml INHALE 04/27/25 09:54 1 dose ONCE ONE Administration Sodium Chloride 500 mls @ 500 mls/hr 04/27/25 10:30 04/27/25 12:12 Ns IV 04/27/25 11:29 Infused .Q1H JAHAIRA Infusion Magnesium Sulfate 2 gm in 50 mls @ 150 mls/hr 04/27/25 12:16 04/27/25 12:52 Magnesium Sulfate/H2o IV 04/27/25 12:35 Infused ONCE ONE Infusion Methylprednisolone Sodium Succinate 125 mg 04/27/25 09:31 04/27/25 10:21 Methylprednisolone Sod Succ 125 Mg/2 Ml Vial IVPUSH 04/27/25 09:32 125 mg ONCE ONE Administration Medical Decision Making Medical Decision Making MDM Narrative: 64-year-old female with pmhx significant for COPD presents to the ED today for evaluation of increasing shortness of breath x4 days. Patient hypoxic to 83 percent on room air on arrival, tachycardic to 104, hypertensive. Afebrile. She is generally well-appearing and in no acute distress. No increased effort of breathing. No tripoding. There are diffuse wheezes throughout. No pitting edema or calf tenderness bilaterally. Differential diagnosis includes anemia, electrolyte abnormality, viral syndrome, pneumonia, bronchitis, COPD exacerbation, CHF, ACS, PE Plan for labs, EKG, chest x-ray, viral serology, ED bronch protocol and re-evaluation. Patient placed on 2 liters nasal cannula on arrival with improvement. Differential Diagnosis Differential Diagnoses: The differential diagnosis associated with the presentation includes As above Admission/Observation Consideration of admission/observation: Escalation of care including admission/observation considered I had a discussion about admission for hypoxic respiratory failure in the setting of COPD exacerbation. Patient is declining at this time, stating that she needs to go home and care for an individual whom she lives with. We discussed risks of her leaving the ED against medical advice. She verbalizes understanding. Lab Data MDM Lab Attestation statement: I reviewed the patient's lab results. As above 04/27/25 09:53 04/27/25 11:15 Labs: Lab Results 04/27/25 04/27/25 04/27/25 Range/Units 09:43 09:53 10:02 WBC 13.4 H (4.8-10.8) X10*3/uL RBC 5.34 (4.20-5.50) X10*6/uL Hgb 11.2 L (12.0-16.0) g/dl Hct 37.2 (37.0-47.0) % MCV 69.7 L (80.0-98.0) fL MCH 21.0 L (27.0-33.0) pg MCHC 30.1 L (31.0-35.0) g/dl RDW 15.9 (11.0-16.0) % Plt Count 341 (160-400) X10*3/uL MPV 9.9 (9.4-12.3) fL Immature Gran % (Auto) 1.0 H (0.0-0.4) % Neut % (Auto) 84.8 H (45-73) % Lymph % (Auto) 7.7 L (20-40) % Schuyler % (Auto) 4.9 (2-11) % Eos % (Auto) 1.2 (0-4) % Baso % (Auto) 0.4 (0-2) % Lymph # (Auto) 1.0 L (1.2-4.9) X10*3/uL Schuyler # (Auto) 0.7 (0.1-1.2) X10*3/uL Eos # (Auto) 0.2 (0.0-0.4) X10*3/uL Baso # (Auto) 0.1 (0.0-0.2) X10*3/uL Abs Immat Gran (auto) 0.13 H (0.00-0.03) X10*3/uL Absolute Neuts (auto) 11.4 H (2.0-8.3) x10*3/uL Absolute Nucleated RBC 0.000 (0.0-0.012) X10*3/uL Nucleated RBC % (auto) 0.0 (0.0-0.2) /100WBC VBG pH 7.42 (7.32-7.43) VBG pCO2 56 mmHg VBG pO2 60 mmHg VBG HCO3 37 H (22-26) mmol/L VBG O2 Saturation 89.0 % VBG Base Excess 10.7 mmol/L Sodium (135-145) mmol/L Potassium (3.3-5.1) mmol/L Chloride (96-108) mmol/L Carbon Dioxide (22-29) mmol/L Anion Gap (12-20) BUN (9-16) mg/dL Creatinine (0.5-1.4) mg/dL Estim Creat Clear Calc Estimated GFR Random Glucose (60-115) mg/dL Lactic Acid 1.8 (0.5-2.0) mmol/L Calcium (8.4-10.2) mg/dL Magnesium (1.6-2.6) mg/dL Total Bilirubin (0.0-1.0) mg/dL AST (5-31) U/L ALT (0-31) U/L Alkaline Phosphatase (39-117) U/L Troponin I High Sens (<3.5-17.0) ng/L B-Natriuretic Peptide 46 (<100) pg/mL Total Protein (6.5-8.0) g/dL Albumin (3.5-5.0) g/dL Influenza Type A (PCR) NEGATIVE (Negative) Influenza Type B (PCR) NEGATIVE (Negative) RSV RNA Qual (PCR) NEGATIVE (Negative) SARS-CoV-2 RNA (RT-PCR) NEGATIVE (Negative) 04/27/25 Range/Units 11:15 WBC (4.8-10.8) X10*3/uL RBC (4.20-5.50) X10*6/uL Hgb (12.0-16.0) g/dl Hct (37.0-47.0) % MCV (80.0-98.0) fL MCH (27.0-33.0) pg MCHC (31.0-35.0) g/dl RDW (11.0-16.0) % Plt Count (160-400) X10*3/uL MPV (9.4-12.3) fL Immature Gran % (Auto) (0.0-0.4) % Neut % (Auto) (45-73) % Lymph % (Auto) (20-40) % Schuyler % (Auto) (2-11) % Eos % (Auto) (0-4) % Baso % (Auto) (0-2) % Lymph # (Auto) (1.2-4.9) X10*3/uL Schuyler # (Auto) (0.1-1.2) X10*3/uL Eos # (Auto) (0.0-0.4) X10*3/uL Baso # (Auto) (0.0-0.2) X10*3/uL Abs Immat Gran (auto) (0.00-0.03) X10*3/uL Absolute Neuts (auto) (2.0-8.3) x10*3/uL Absolute Nucleated RBC (0.0-0.012) X10*3/uL Nucleated RBC % (auto) (0.0-0.2) /100WBC VBG pH (7.32-7.43) VBG pCO2 mmHg VBG pO2 mmHg VBG HCO3 (22-26) mmol/L VBG O2 Saturation % VBG Base Excess mmol/L Sodium 142 (135-145) mmol/L Potassium 4.2 (3.3-5.1) mmol/L Chloride 104 (96-108) mmol/L Carbon Dioxide 32 H (22-29) mmol/L Anion Gap 10 L (12-20) BUN 12 (9-16) mg/dL Creatinine 0.83 (0.5-1.4) mg/dL Estim Creat Clear Calc 66.1 Estimated GFR > 60 Random Glucose 169 H (60-115) mg/dL Lactic Acid (0.5-2.0) mmol/L Calcium 9.3 D (8.4-10.2) mg/dL Magnesium 2.2 (1.6-2.6) mg/dL Total Bilirubin 0.3 (0.0-1.0) mg/dL AST 16 (5-31) U/L ALT 17 (0-31) U/L Alkaline Phosphatase 84 (39-117) U/L Troponin I High Sens 4.2 D (<3.5-17.0) ng/L B-Natriuretic Peptide (<100) pg/mL Total Protein 6.8 (6.5-8.0) g/dL Albumin 4.3 (3.5-5.0) g/dL Influenza Type A (PCR) (Negative) Influenza Type B (PCR) (Negative) RSV RNA Qual (PCR) (Negative) SARS-CoV-2 RNA (RT-PCR) (Negative) Independent Interpretation I performed an independent interpretation of an: EKG and Plain X-Ray Interpretation: EKG showing sinus tachycardia, rate of 102 beats per minute, QT 328, QTC 427, no acute ischemic changes or ST elevations Chest x-ray without infiltrate or consolidation Radiology Impression Discussion of test interpretation with radiology: I have reviewed the radiologist's reading. Radiologist Impression: Date of Service: 04/27/25 Procedure(s): XR chest 2V Accession Number(s): [id number] cc: Daljit Irby MD; Elisha Turcios EXAMINATION: XR CHEST CLINICAL INFORMATION: sob, copd COMPARISON: 10/05/2024, 02/16/2024. TECHNIQUE: 2 views of the chest were obtained. FINDINGS: The cardiac, hilar, and mediastinal contours are normal. Aortic mural calcification. Mildly increased thoracic AP diameter. The lungs are hyperaerated, however clear bilaterally. There is no pneumothorax or pleural effusion. There is no focal osseous or soft tissue abnormality. Exaggerated thoracic kyphosis with degenerative changes. XR/XR chest 2V IMPRESSION: No active pulmonary disease. Electronically signed by: Inder Mazariegos MD 04/27/2025 09:24 AM EDT External Record Review External record reviewed: Inpatient record Prescription Management I considered prescription management with: Antibiotic Chronic Conditions Patient?s care impacted by: Other (COPD) Social Determinants Patient?s care significantly limited by Social Determinants of Health including: Other Social Determinant of Health Critical Care Time Critical Care Time Critical Care Time: No Total Critical Care Time: 33 Discharge Plan Discharge Clinical Impression: COPD with acute exacerbation Patient Disposition: Left Against Medical Advice Instructions: COPD (Chronic Obstructive Pulmonary Disease) (ED) Additional Instructions: You were evaluated in the ED today for shortness of breath. You are having exacerbation of your COPD. Your oxygen is very low. My medical recommendation is to stay and be admitted to our facility for continued treatment. You are declining at this time and would like to return home. You are welcome to return at any time. Please monitor your oxygen levels at home. Continue prednisone prescribed by your provider. I am starting you on antibiotics. Take these to completion. Follow up with your outpatient providers and dealer support technician. Return with new or worsening symptoms. In the case of an emergency call 911. Prescriptions: New cefuroxime axetil 500 mg tablet 500 mg PO BID 7 Days Qty: 14 0RF doxycycline hyclate 100 mg capsule 100 mg PO BID 7 Days Qty: 14 0RF No Action amlodipine 5 mg tablet 5 mg PO DAILY Qty: 90 1RF fluticasone furoate-vilanterol [Breo Ellipta] 100-25 mcg/dose blister with device 1 ea inhalation DAILY Qty: 60 2RF lorazepam 0.5 mg tablet 0.5 mg PO BID PRN (Reason: anxiety) Qty: 10 0RF lamotrigine 200 mg Tablet 200 mg PO BEDTIME duloxetine 60 mg Capsule, Delayed Rel Sprinkle 60 mg PO BID quetiapine 25 mg tablet 1 tab PO BEDTIME ibuprofen 800 mg tablet 1 tab PO TID PRN (Reason: Pain) ferrous sulfate 325 mg (65 mg iron) tablet 325 mg PO BEDTIME albuterol sulfate [ProAir HFA] 90 mcg/actuation HFA aerosol inhaler 2 puff inhalation Q4-6H PRN (Reason: shortness of breath or wheezing) Qty: 8.5 0RF omeprazole 40 mg capsule,delayed release(DR/EC) 40 mg PO DAILY Rx Instructions: After 8 weeks to take it daily Myrbetriq 25 mg tablet extended release 24 hr 25 mg PO DAILY amlodipine 5 mg Tablet 5 mg PO DAILY Qty: 90 0RF Protocol: Hold for SBP< HOLD for SBP < : 90 nicotine 21 mg/24 hr patch 24 hour 1 patch transdermal DAILY Qty: 28 1RF albuterol sulfate 2.5 mg /3 mL (0.083 %) solution for nebulization 2.5 mg inhalation QID PRN (Reason: Shortness Of Breath Or Wheezing) Qty: 180 1RF prednisone 20 mg tablet 20 mg PO DAILY 7 Days Qty: 7 0RF prednisone 20 mg tablet 20 mg PO DAILY Qty: 3 0RF Referrals: [facility] [Provider Group, Pulmonology] Daljit Irby MD [Primary Care Provider, Internal Medicine] Stand Alone Forms: Against Medical Advice, Work/School Release Interventions: ED Discharge Assessment Last Done: 04/27/25 13:28 Discharge Date/Time: 04/27/25 13:28 Print Language: Lao
[2025-04-27 09:59] VITALS: PULSE 98; RESP 16; O2SAT 94
[2025-04-27] MEDS: Albuterol Sulfate 2.5 MG, Albuterol/Iprat 2.5/0.5MG 3 ML 3 ML INHALE (09:59)
[2025-04-27 10:02] LABS: MANUAL DIFF FLAG NO
[2025-04-27 10:03] LABS: Hematocrit 37.2 % (37.0-47.0); Hemoglobin 11.2 g/dl (12.0-16.0); Imm Gran Abs Auto 0.13 X10*3/uL (0.00-0.03); Imm Gran Pct Auto 1.0 % (0.0-0.4); Lymphocytes Absolute Auto 1.0 X10*3/uL (1.2-4.9); Mean Corpuscular HGB Conc 30.1 g/dl (31.0-35.0); Mean Corpuscular Hemoglobin 21.0 pg (27.0-33.0); Mean Corpuscular Volume 69.7 fL (80.0-98.0); NRBC Abs Auto 0.000 X10*3/uL (0.0-0.012); NRBC Pct Auto 0.0 /100WBC (0.0-0.2); Platelet Count 341 X10*3/uL (160-400); Red Blood Count 5.34 X10*6/uL (4.20-5.50); White Blood Count 13.4 X10*3/uL (4.8-10.8)
[2025-04-27 10:11] LABS: Venous Blood Gas Refer to POC result
[2025-04-27 10:12] LABS: VBG HCO3 37 mmol/L (22-26); VBG O2 % Saturation 89.0 %
[2025-04-27 10:26] VITALS: BP 137/76; PULSE 97; RESP 18; TEMP 36.8; O2SAT 94
[2025-04-27 10:28] LABS: Resp Syncy Virus RNA Qual PCR NEGATIVE (Negative); SARS COV2 PCR INHOUSE NEGATIVE (Negative)
[2025-04-27 10:29] LABS: B Type Natriuretic Peptide 46 pg/mL (<100)
[2025-04-27 10:52] VITALS: BP 132/66; PULSE 97; RESP 18; TEMP 36.9; O2SAT 92
[2025-04-27 11:43] LABS: Alanine Aminotransferase 17 U/L (0-31); Albumin Level 4.3 g/dL (3.5-5.0); Alkaline Phosphatase 84 U/L (39-117); Anion Gap 10 (12-20); Aspartate Amino Transferase 16 U/L (5-31); Blood Urea Nitrogen 12 mg/dL (9-16); Calcium 9.3 mg/dL (8.4-10.2); Carbon Dioxide 32 mmol/L (22-29); Chloride 104 mmol/L (96-108); Creatinine Clr Calc Pharmacy 66.1; Estimated Glomerular Filt Rate > 60; Potassium 4.2 mmol/L (3.3-5.1); Sodium 142 mmol/L (135-145); Total Protein 6.8 g/dL (6.5-8.0)
[2025-04-27 11:46] LABS: Troponin-I High Sensitivity 4.2 ng/L (<3.5-17.0)
[2025-04-27 12:13] VITALS: BP 134/62; PULSE 93; RESP 18; TEMP 36.8; O2SAT 92
[2025-04-27 12:13] LABS: Magnesium 2.2 mg/dL (1.6-2.6)
--- NOTE | 2025-04-27 12:20 | MHC.EDTECH ---
Ambulation trial with Pt without O2. Pt desated to 80% after a short period. Pt appeared short of breath. Pt now sitting back in bed on 2L via NC with improved o2 sats. Provider aware.
[2025-04-27] MEDS: Magnesium Sulfate/H2O 2 GM/50 ML PIGGYBACK IV (12:32)
[2025-04-27 13:28] VITALS: BP 134/62; PULSE 93; RESP 18; TEMP 36.8; O2SAT 92
== END 2025-04-27 13:28 | disposition left against medical advice (07) ==
PROVIDERS: Physician Assistant Medical; Emergency Provider Emergency Medicine; PCP Internal Medicine
DX: J44.1 Chronic obstructive pulmonary disease with (acute) exacerbation (principal); R06.00 Dyspnea, unspecified; R06.02 Shortness of breath
CPT/HCPCS: 36415; 71046; 80053; 82803; 83605; 83735; 83880; 84484; 85025; 87040; 87637; 93005; 94640; 96361; 96365; 96375; 99284; J0696; J2919; J3475

== ENCOUNTER → 2025-04-27 09:22 | Outpatient (BNV) | payer OTHER, SELFPAY | PROVIDERS: Emergency Provider Emergency Medicine; PCP Internal Medicine; Visit Provider Internal Medicine | DX: R00.0 Tachycardia, unspecified (principal) | CPT/HCPCS: 93010 ==

== ENCOUNTER → 2025-05-06 13:52 | Outpatient (BNVA) | payer OTHER, SELFPAY | PROVIDERS: PCP Internal Medicine; Visit Provider Physician Assistant Medical | DX: S06.0X0A Concussion without loss of consciousness, initial encounter (principal); Y04.8XXA Assault by other bodily force, initial encounter | CPT/HCPCS: 70450; 99202 ==

== ENCOUNTER → 2025-05-10 13:30 | Outpatient (BNVA) | payer OTHER, SELFPAY | PROVIDERS: PCP Internal Medicine; Visit Provider Physician Assistant Medical | DX: S06.0X0A Concussion without loss of consciousness, initial encounter (principal); Y04.8XXA Assault by other bodily force, initial encounter; R51.9 Headache, unspecified; Z02.79 Encounter for issue of other medical certificate | CPT/HCPCS: 99213 ==

== ENCOUNTER 2025-05-29 14:42 | Inpatient (IN) | payer OTHER, SELFPAY ==
[2025-05-29] VITALS (14 sets, daily range): BP systolic 100–159; BP diastolic 68–81; PULSE 99–120; RESP 18–28; TEMP 36.9–37.7; O2SAT 50–95; BMI 43.0
--- NOTE | ~2025-05-29 | XR_ITS ---
CLINICAL HISTORY: sob Single view of the chest. COMPARISON: XR chest dated 04/27/25 at 09:19 EDT FINDINGS: Normal heart size. Hazy opacities within the right mid to lower lung. No pleural effusion or pneumothorax. Mild spondylosis. No acute fracture. IMPRESSION: 1. Hazy right mid to lower lung pulmonary opacities may represent developing pneumonia or asymmetric pulmonary edema. This document has been electronically signed by: Truong Espana MD on 05/29/2025 15:37:19
--- NOTE | ~2025-05-29 | CT_ITS ---
EXAMINATION: CT CHEST ANGIOGRAPHY WITH IV CONTRAST INDICATION: worsening hypoxia COMPARISON: Comparison is made with the prior examination dated 05/30/2025. TECHNIQUE: Helical CT scan of the chest was performed following administration of intravenous contrast (65 mL Omnipaque 350). The contrast bolus was timed to optimally opacify the pulmonary arteries. Thin sections were obtained through the pulmonary arteries. Coronal and sagittal reformatted images were generated. 3D/MIP reconstructed images are also obtained and reviewed. This CT exam was performed with one or more of the following dose reduction techniques: automated exposure control, adjustment of the mA and/or kV according to patient size, use of iterative reconstruction technique. DLP: 199 mGy-cm CHEST: THYROID: The thyroid gland is unremarkable. PULMONARY ARTERIES: No intraluminal filling defects are identified within the pulmonary arteries to suggest pulmonary emboli. LUNGS: Again seen is linear scarring in the right middle lobe and in both lower lobes. There are no focal airspace opacities. MEDIASTINUM: There is no mediastinal lymphadenopathy. YOSELIN: There is no hilar lymphadenopathy. CARDIOVASCULATURE: The heart is normal in size. There is no pericardial effusion. The thoracic aorta is normal in caliber. DEGREE OF CORONARY CALCIFICATION: not evaluable, due to dense contrast in the coronary arteries PLEURA: There is no pleural effusion. No pneumothorax. MAIN AIRWAYS: The mainstem bronchi and proximal branches are patent. AXILLA: There is no axillary lymphadenopathy. UPPER ABDOMEN: The visualized portions of the liver and spleen are unremarkable. There are bilateral adrenal masses which were previously characterized as adenomas on a CT of the abdomen dated 04/26/2022. BONES AND SOFT TISSUES: There is degenerative disc disease of the spine. CT/CT angio chest PE protocol IMPRESSION: No evidence of pulmonary emboli. Multifocal pulmonary scarring. Electronically signed by: Bib Walker MD 05/31/2025 12:25 PM EDT
--- NOTE | ~2025-05-29 | CT_ITS ---
CLINICAL HISTORY: SOB, COVID,COPD CT chest without contrast Comparison: CR/SR - XR CHEST 2 VIEWS - 04/27/25 09:19 EDT Findings: The heart is normal size. The visualized thyroid and mediastinum are unremarkable. Pulmonary parenchyma demonstrates multifocal areas of subsegmental atelectasis and pleural-parenchymal scarring. There is dependent atelectasis. No pleural effusion. Ill-defined airspace opacities are present in the left lingula, right middle lobe, and right lower lobe. There is a 4 mm nodule in the right upper lobe. Large airways are normal. Coronary artery calcifications are present. Upper abdomen is normal. Hepatic flexure extends anterior to the hepatic capsule. Included portions of the kidneys and spleen are normal. Stomach is distended. Pancreas is normal. Vascular calcifications are present in the thoracic and abdominal aorta. Multilevel degenerative disc disease is present in the thoracic spine. Bridging syndesmophytes are present in the lower thoracic spine. No acute fracture. IMPRESSION: 1. Multifocal areas of subsegmental atelectasis in the bilateral lungs. Patchy areas of ill-defined airspace opacities may represent sequelae of inflammation, pneumonitis, or infection. 2. Right upper lung 4 mm nodule may be followed per revised Fleischner criteria. This document has been electronically signed by: Montrell Hector III, MD PHD on 05/30/2025 03:54:22
--- NOTE | 2025-05-29 14:57 | ECG_ITS ---
Test Reason : sob Blood Pressure : */* mmHG Vent. Rate : 113 BPM Atrial Rate : 113 BPM P-R Int : 152 ms QRS Dur : 68 ms QT Int : 318 ms P-R-T Axes : 27 29 48 degrees QTcB Int : 436 ms Baseline wander Sinus tachycardia Low voltage QRS Septal infarct , age undetermined Abnormal ECG When compared with ECG of 27-Apr-2025 09:22, Septal infarct is now Present Referred By: Carloz Ford Electronically Signed By: RODGER DAHL MD
--- NOTE | 2025-05-29 14:57 | PC.NURSE ---
64 F presents to ED with SOB x2 days, with dry cough. Pt has COPD, on 2L NC baseline. A+Ox4, calm, cooperative. Ambulates independently. Wheezes throughout.
--- NOTE | 2025-05-29 14:58 | ED.GENADULT ---
HPI - General Adult General Chief complaint: Dyspnea Stated complaint: SOB,94%NRB PER EMS Time Seen by Provider: 05/29/25 14:57 Source: patient and EMS Mode of arrival: EMS Limitations: no limitations History of Present Illness ED Provider: TANNER Ford HPI narrative: This is a 64-year-old female history of COPD on 2 L nasal cannula baseline, hypoxia, nicotine dependence currently smoking, presenting to the emergency department with shortness of breath, slightly productive cough ongoing for the past 2 days. Patient reports her shortness of breath has been progressively worsening over the past few days it is worse with ambulation better at rest. Denies sick contacts. Denies chest pain, fevers, chills, nausea, vomiting, abdominal pain, headache, vision changes, dizziness, weakness. Related Data Home Medications ?Medication ?Instructions ?Recorded ?Confirmed duloxetine 60 mg capsule,delayed 60 mg PO BID 09/01/21 02/15/24 release sprinkle lamotrigine 200 mg tablet 200 mg PO BEDTIME 09/01/21 02/15/24 ferrous sulfate 325 mg (65 mg 325 mg PO BEDTIME 02/14/22 02/15/24 iron) tablet ibuprofen 800 mg tablet 1 tab PO TID PRN Pain 02/14/22 02/15/24 quetiapine 25 mg tablet 1 tab PO BEDTIME 02/14/22 02/15/24 omeprazole 40 mg capsule,delayed 40 mg PO DAILY 07/03/22 02/15/24 release mirabegron 25 mg tablet,extended 25 mg PO DAILY 02/15/24 02/15/24 release 24 hr (Myrbetriq) Previous Rx's ?Medication ?Instructions ?Recorded lorazepam 0.5 mg tablet 0.5 mg PO BID PRN anxiety #10 tabs 09/30/21 albuterol sulfate 90 mcg/actuation 2 puff inhalation Q4-6H PRN 02/14/22 aerosol inhaler (ProAir HFA) shortness of breath or wheezing #8.5 grams albuterol sulfate 2.5 mg/3 mL 2.5 mg (3 mL) inhalation QID PRN 02/18/24 (0.083 %) solution for nebulization Shortness Of Breath Or Wheezing #180 mL amlodipine 5 mg tablet 5 mg PO DAILY #90 tabs 02/18/24 nicotine 21 mg/24 hr daily 1 patch transdermal DAILY #28 ea 02/18/24 transdermal patch prednisone 20 mg tablet 20 mg PO DAILY 7 days #7 tabs 11/01/24 prednisone 20 mg tablet 20 mg PO DAILY #3 tabs 12/15/24 amlodipine 5 mg tablet 5 mg PO DAILY #90 tabs 01/25/25 fluticasone furoate 100 1 ea inhalation DAILY #60 ea 01/25/25 mcg-vilanterol 25 mcg/dose inhalation powder (Breo Ellipta) cefuroxime axetil 500 mg tablet 500 mg PO BID 7 days #14 tabs 04/27/25 doxycycline hyclate 100 mg capsule 100 mg PO BID 7 days #14 caps 04/27/25 cyclobenzaprine 10 mg tablet 10 mg PO TID PRN muscle spasm #20 05/06/25 tabs naproxen 500 mg tablet 500 mg PO BID PRN back pain #28 05/06/25 tabs Allergies Allergy/AdvReac Type Severity Reaction Status Date / Time No Known Allergies Allergy Verified 05/29/25 14:49 Review of Systems Review of Systems: Yes all other systems are reviewed and are negative [facility] Past Medical History Attestation statement: The following information was validated with the patient. Source: old records reviewed and nursing notes reviewed Medical History Mood disorder Tobacco use disorder Hx of head injury Anemia Panic anxiety syndrome Pelvic mass Anemia COPD (chronic obstructive pulmonary disease) Surgical History Hx of colonoscopy History of mandibular surgery H/O: hysterectomy Social History Social History Household Members: Spouse Housing: Apartment Do you presently have visiting nurse or other home services: Yes Alcohol intake: unknown Patient Tobacco Use Status: Current everyday Tobacco user Tobacco use type: Cigarette Cigarette Packs Per Day: 1 Cigarettes Per Day: 20.0 Years Smoked: 40 Smoked in Last 30 Days: Yes Second Hand Smoke Exposure: No Use of substances other than those prescribed or required for medical reasons: No Substance Use Type: Marijuana Advance Directives: No Advance Directives Information Provided: No Do you have a plan to hurt others: No Plan Patient : No service: No Current occupational status: employed Current occupation: [employer]/ left hand dominant Physical Exam ED Exam Exam: Appearance: Alert.? Oriented X3.? No acute distress.? Head: Normocephalic, atraumatic, no step-offs or deformities Eyes: Pupils equal, round and reactive to light.? ENT: Pharynx normal.? Neck: Normal inspection.? Neck supple.? CVS: Normal heart rate and rhythm.? Pulses normal.? Respiratory: No respiratory distress.? Breath sounds normal.? Abdomen: Soft and nontender.? Skin: Skin warm and dry.? Normal skin color.? Normal skin turgor.? Extremities: No lower extremity edema.? No calf ttp. 5/5 strength to bilateral upper and lower extremities Back: No midline tenderness, no C-spine tenderness, full range of motion, no CVA tenderness bilaterally Neuro: Oriented X 3.? No motor deficit.? No sensory deficit. CN 2-12 intact Vital Signs: Vital Signs - 24 hr 05/29/25 14:48 05/29/25 14:52 05/29/25 15:05 Temperature 98.7 F Pulse Rate 116 H 116 H 105 H Respiratory Rate 18 24 H 20 Blood Pressure 138/81 138/81 Pulse Oximetry 88 L Oxygen Delivery Method Nasal Cannula Oxymask Oxygen Flow Rate 10 05/29/25 15:49 05/29/25 16:10 05/29/25 16:26 Temperature Pulse Rate 111 H 108 H Respiratory Rate 21 H 26 H 18 Blood Pressure 146/80 H 159/76 H Pulse Oximetry 90 L 92 Oxygen Delivery Method Oxymask Oxymask Oxygen Flow Rate 12 10 05/29/25 16:30 05/29/25 16:36 05/29/25 17:02 Temperature 99.8 F 98.7 F Pulse Rate 106 H 105 H 112 H Respiratory Rate 21 H 28 H 22 H Blood Pressure 126/72 118/74 125/71 Pulse Oximetry 50 L 89 L 90 L Oxygen Delivery Method High Flow Nasal Cannula High Flow Nasal Cannula High Flow Nasal Cannula Oxygen Flow Rate 45 05/29/25 17:20 05/29/25 17:30 05/29/25 19:39 Temperature 98.6 F Pulse Rate 99 Respiratory Rate 26 H 22 H Blood Pressure 129/75 Pulse Oximetry 93 95 Oxygen Delivery Method BiPAP Nasal Cannula Oxygen Flow Rate 6 BMI result Body Mass Index 43.0 Vital signs significant for hypoxia, tachycardia Course Reevaluation(s) Reevaluation #1: Patient's chest x-ray with hazy right mid to lower lung pulmonary opacity could represent developing pneumonia or pulmonary edema. Patient is tachycardic, hypoxic . Therefore she has already been covered for infection. Time: 15:55 Reevaluation #2: According to nursing staff patient appears more hypoxic and labored. She is now known COVID positive. Time: 16:10 Reevaluation #3: Patient currently on BiPAP as she is having respiratory acidosis. She will be re-evaluated in about an hour to see if ABG improves. CTA ordered Time: 17:50 Additional Reevaluation(s): Sign out to Inder HART Consultations Consultation #1: 9:59 PM 05/29/2025 (Kvng HART): Patient was signed out to this provider at shift change, in summary the patient is a 64 year old female with history of COPD and chronic O2 dependency, presenting to the ED for evaluation of worsening shortness of breath. She was found to be COVID positive. She was treated with magnesium sulfate, Solu-Medrol, Rocephin, DuoNeb, and initially placed on high-flow O2 however ABG came back showing pH of 7.26 with pCO2 of 62. Patient was placed on BiPAP for approximately 1-1/2-2 hours with plan to reassess ABG, oxygenation, and symptoms. The patient was signed out to me pending transition from BiPAP to FiO2. At this time the patient has been off BiPAP for 2 hours, receiving initially 6 L FiO2 via nasal cannula, now down to 4 L FiO2, and maintaining oxygen saturation. Patient's work of breathing has improved, and repeat ABG shows improvement with pH 7.31, pCO2 down to 52, and improvement in p.o. 2. HC03 has dropped from 28 to 27. We will admit to the floor for acute exacerbation of COPD in the setting of COVID infection. Medications Administered Discontinued Medications Generic Name Dose Route Start Last Admin Trade Name Freq PRN Reason Stop Dose Admin Ceftriaxone Sodium 1 gm 05/29/25 14:57 05/29/25 15:14 Ceftriaxone Sodium 1 Gm Vial IVPUSH 05/29/25 14:58 1 gm ONCE ONE Administration Albuterol Sulfate 5 mg/ 0 mg 05/29/25 14:54 05/29/25 14:59 Albuterol/Ipratropium 3 ml INHALE 05/29/25 14:55 2.5 each ONCE ONE Administration Sodium Chloride 3,096 mls @ 3,096 mls/hr 05/29/25 14:57 05/29/25 16:14 Ns 30 ml/kg infuse over 1 hr (3096 ml) 05/29/25 15:56 Infused IV Infusion .Q1H STA Magnesium Sulfate 2 gm in 50 mls @ 25 mls/hr 05/29/25 14:57 05/29/25 15:41 Magnesium Sulfate/H2o IV 05/29/25 16:56 Infused ONCE ONE Infusion Methylprednisolone Sodium Succinate 125 mg 05/29/25 14:57 05/29/25 15:12 Methylprednisolone Sod Succ 125 Mg/2 Ml Vial IVPUSH 05/29/25 14:58 125 mg ONCE ONE Administration Medical Decision Making Medical Decision Making [facility] Narrative: 1500 64-year-old female presents with shortness of breath, cough ongoing for the past 2 days worsening. Current daily smoker on 2 L nasal cannula requiring more. Physical exam diminished breath sounds and wheezing bilaterally. History and physical exam concerning for chronic lung disease versus viral illness versus pneumonia. Will rule out PE. Unlikely ACS. Low suspicion for pneumothorax. She is in [id number] respiratory distress. Plan labs, imaging, viral testing. At this time infection suspected blood cultures, lactic acid ceftriaxone and fluids ordered Differential Diagnosis Differential Diagnoses: The differential diagnosis associated with the presentation includes (History and physical exam concerning for chronic lung disease versus viral illness versus pneumonia. Will rule out PE. Unlikely ACS. Low suspicion for pneumothorax. She is in [id number] respiratory distress.) Admission/Observation Consideration of admission/observation: Escalation of care including admission/observation considered (likely ) Lab Data [facility] Lab Attestation statement: I reviewed the patient's lab results. 05/29/25 17:38 05/29/25 17:38 Labs: Lab Results 05/29/25 05/29/25 05/29/25 Range/Units 15:03 16:48 17:00 WBC (4.8-10.8) X10*3/uL RBC (4.20-5.50) X10*6/uL Hgb (12.0-16.0) g/dl Hct (37.0-47.0) % MCV (80.0-98.0) fL MCH (27.0-33.0) pg MCHC (31.0-35.0) g/dl RDW (11.0-16.0) % Plt Count (160-400) X10*3/uL MPV (9.4-12.3) fL Immature Gran % (Auto) (0.0-0.4) % Neut % (Auto) (45-73) % Lymph % (Auto) (20-40) % [place]arr[place] % (Auto) (2-11) % Eos % (Auto) (0-4) % Baso % (Auto) (0-2) % Lymph # (Auto) (1.2-4.9) X10*3/uL [place] # (Auto) (0.1-1.2) X10*3/uL Eos # (Auto) (0.0-0.4) X10*3/uL Baso # (Auto) (0.0-0.2) X10*3/uL Abs Immat Gran (auto) (0.00-0.03) X10*3/uL Absolute Neuts (auto) (2.0-8.3) x10*3/uL Absolute Nucleated RBC (0.0-0.012) X10*3/uL Nucleated RBC % (auto) (0.0-0.2) /100WBC Hold Purple Top D-Dimer High Sensitivty NG/ML O2 Saturation 86.0 % ABG pH at Pt Temp 7.26 L (7.35-7.45) ABG pCO2 at Pt Temp 62 H* (32-45) mmHg ABG pO2 at Pt Temp 62 L (83-108) mmHg ABG HCO3 28 H (22-26) mmol/L ABG Base Excess (Actual) 0.4 mmol/L Sodium (135-145) mmol/L Potassium (3.3-5.1) mmol/L Chloride (96-108) mmol/L Carbon Dioxide (22-29) mmol/L Anion Gap (12-20) BUN (9-16) mg/dL Creatinine (0.5-1.4) mg/dL Estim Creat Clear Calc Estimated GFR Random Glucose (60-115) mg/dL Lactic Acid 0.8 (0.5-2.0) mmol/L Calcium (8.4-10.2) mg/dL Magnesium (1.6-2.6) mg/dL Total Bilirubin (0.0-1.0) mg/dL AST (5-31) U/L ALT (0-31) U/L Alkaline Phosphatase (39-117) U/L Troponin I High Sens (<3.5-17.0) ng/L Total Protein (6.5-8.0) g/dL Albumin (3.5-5.0) g/dL Urine Color Yellow Urine Appearance Clear Urine pH 6.0 (5.0-9.0) Ur Specific [place] <= 1.005 (1.005-1.025) Urine Protein Negative (Neg-Trace) mg/dL Urine Glucose (UA) Negative (Negative) mg/dL Urine Ketones Negative (Negative) mg/dL Urine Blood Trace H (Negative) Urine Nitrite Negative (Negative) Ur Leukocyte Esterase Negative (Negative) Urine RBC 0-2 (0-2) /HPF Urine WBC 0-5 (0-5) /HPF Ur Squamous Epith Cells 0-2 (0-2) /HPF Urine Bacteria None Seen (None Seen) Hyaline Casts 0-2 (0-2) /LPF COVID-19 (YULISSA) Positive A (Negative) COVID-19 Clin Com See Note Influenza Type A (EVIE) Negative (Negative) Influenza Type B (EVIE) Negative (Negative) Influenza A & B Note See Note 05/29/25 05/29/25 05/29/25 Range/Units 17:38 17:38 21:36 WBC 9.1 (4.8-10.8) X10*3/uL RBC 5.14 (4.20-5.50) X10*6/uL Hgb 10.9 L (12.0-16.0) g/dl Hct 36.4 L (37.0-47.0) % MCV 70.8 L (80.0-98.0) fL MCH 21.2 L (27.0-33.0) pg MCHC 29.9 L (31.0-35.0) g/dl RDW 17.5 H (11.0-16.0) % Plt Count 304 (160-400) X10*3/uL MPV 10.3 (9.4-12.3) fL Immature Gran % (Auto) 2.5 H (0.0-0.4) % Neut % (Auto) 76.8 H (45-73) % Lymph % (Auto) 9.8 L (20-40) % [place]arr[place] % (Auto) 10.2 (2-11) % Eos % (Auto) 0.1 (0-4) % Baso % (Auto) 0.6 (0-2) % Lymph # (Auto) 0.9 L (1.2-4.9) X10*3/uL [place] # (Auto) 0.9 (0.1-1.2) X10*3/uL Eos # (Auto) 0.0 (0.0-0.4) X10*3/uL Baso # (Auto) 0.1 (0.0-0.2) X10*3/uL Abs Immat Gran (auto) 0.23 H (0.00-0.03) X10*3/uL Absolute Neuts (auto) 7.0 (2.0-8.3) x10*3/uL Absolute Nucleated RBC 0.000 (0.0-0.012) X10*3/uL Nucleated RBC % (auto) 0.0 (0.0-0.2) /100WBC Hold Purple Top SEE NOTE SEE NOTE D-Dimer High Sensitivty 183 NG/ML O2 Saturation 96.0 % ABG pH at Pt Temp 7.31 L (7.35-7.45) ABG pCO2 at Pt Temp 52 H (32-45) mmHg ABG pO2 at Pt Temp 81 L (83-108) mmHg ABG HCO3 27 H (22-26) mmol/L ABG Base Excess (Actual) 0.1 mmol/L Sodium 141 (135-145) mmol/L Potassium 4.2 (3.3-5.1) mmol/L Chloride 104 (96-108) mmol/L Carbon Dioxide 27 (22-29) mmol/L Anion Gap 14 (12-20) BUN 10 (9-16) mg/dL Creatinine 0.76 (0.5-1.4) mg/dL Estim Creat Clear Calc 83.6 Estimated GFR > 60 Random Glucose 151 H (60-115) mg/dL Lactic Acid (0.5-2.0) mmol/L Calcium 8.5 D (8.4-10.2) mg/dL Magnesium 2.5 (1.6-2.6) mg/dL Total Bilirubin 0.2 (0.0-1.0) mg/dL AST 23 (5-31) U/L ALT 15 (0-31) U/L Alkaline Phosphatase 89 (39-117) U/L Troponin I High Sens 4.5 (<3.5-17.0) ng/L Total Protein 7.2 (6.5-8.0) g/dL Albumin 4.5 (3.5-5.0) g/dL Urine Color Urine Appearance Urine pH (5.0-9.0) Ur Specific [place] (1.005-1.025) Urine Protein (Neg-Trace) mg/dL Urine Glucose (UA) (Negative) mg/dL Urine Ketones (Negative) mg/dL Urine Blood (Negative) Urine Nitrite (Negative) Ur Leukocyte Esterase (Negative) Urine RBC (0-2) /HPF Urine WBC (0-5) /HPF Ur Squamous Epith Cells (0-2) /HPF Urine Bacteria (None Seen) Hyaline Casts (0-2) /LPF COVID-19 (YULISSA) (Negative) COVID-19 Clin Com Influenza Type A (EVIE) (Negative) Influenza Type B (EVIE) (Negative) Influenza A & B Note Independent Interpretation I performed an independent interpretation of an: EKG and Plain X-Ray Radiology Impression Discussion of test interpretation with radiology: I have reviewed the radiologist's reading. Critical Care Time Critical Care Time Critical Care Time: Yes Total Critical Care Time: 45 Attestation: I attest to this time spent taking care of the patient, obtaining history, physical, reviewing labs, imaging, treatment of patients condition +/- specialist/hospitalist consult +/- procedure Discharge Plan Discharge Clinical Impression: COPD (chronic obstructive pulmonary disease), Hypoxia, Acute respiratory acidosis, Pneumonia, COVID-19 Patient Disposition: Admitted As Inpatient Print Language: Persian
[2025-05-29] MEDS: Albuterol Sulfate 5 MG, Albuterol/Iprat 2.5/0.5MG 3 ML 3 ML INHALE (14:59)
[2025-05-29] MEDS: SODIUM CHLORIDE 3096 ML IV (15:12)
[2025-05-29] MEDS: Magnesium Sulfate/H2O 2 GM/50 ML PIGGYBACK IV (15:12)
[2025-05-29 15:55] LABS: COVID-19 Test Positive (Negative); IDNOW Serial# 55D5AD1C
--- NOTE | 2025-05-29 16:15 | PC.NURSE ---
Fluids stopped d/t concern for pulmonary edema/fluid overload, MD authorized stopping of fluids.
[2025-05-29 16:30] LABS: IDNOW Serial# 58CA691E; Influenza B2 Negative (Negative)
[2025-05-29 16:51] LABS: ABG HCO3 28 mmol/L (22-26); ABG O2 % Saturation 86.0 %
[2025-05-29 17:16] LABS: Appearance Urine Clear; Glucose Urine UA Negative (Negative); PH 6.0 (5.0-9.0); Specific Gravity - Urine <= 1.005 (1.005-1.025); UMIC TRIGGER UACC YES
--- NOTE | 2025-05-29 17:36 | PC.NURSE ---
upon arrival to ed all labs obtained per order and sent to lab. When lab called regarding results lab stating they do not have the specimins and patient will need to be drawn again.
[2025-05-29 17:49] LABS: MANUAL DIFF FLAG NO
[2025-05-29 18:05] LABS: Hematocrit 36.4 % (37.0-47.0); Hemoglobin 10.9 g/dl (12.0-16.0); Imm Gran Abs Auto 0.23 X10*3/uL (0.00-0.03); Imm Gran Pct Auto 2.5 % (0.0-0.4); Lymphocytes Absolute Auto 0.9 X10*3/uL (1.2-4.9); Mean Corpuscular HGB Conc 29.9 g/dl (31.0-35.0); Mean Corpuscular Hemoglobin 21.2 pg (27.0-33.0); Mean Corpuscular Volume 70.8 fL (80.0-98.0); NRBC Abs Auto 0.000 X10*3/uL (0.0-0.012); NRBC Pct Auto 0.0 /100WBC (0.0-0.2); Platelet Count 304 X10*3/uL (160-400); Red Blood Count 5.14 X10*6/uL (4.20-5.50); White Blood Count 9.1 X10*3/uL (4.8-10.8)
[2025-05-29 18:15] LABS: D Dimer High Sensitivity 183 NG/ML
[2025-05-29 18:18] LABS: Alanine Aminotransferase 15 U/L (0-31); Albumin Level 4.5 g/dL (3.5-5.0); Alkaline Phosphatase 89 U/L (39-117); Anion Gap 14 (12-20); Aspartate Amino Transferase 23 U/L (5-31); Blood Urea Nitrogen 10 mg/dL (9-16); Calcium 8.5 mg/dL (8.4-10.2); Carbon Dioxide 27 mmol/L (22-29); Chloride 104 mmol/L (96-108); Creatinine Clr Calc Pharmacy 83.6; Estimated Glomerular Filt Rate > 60; Magnesium 2.5 mg/dL (1.6-2.6); Potassium 4.2 mmol/L (3.3-5.1); Sodium 141 mmol/L (135-145); Total Protein 7.2 g/dL (6.5-8.0)
[2025-05-29 20:01] LABS: Troponin-I High Sensitivity 4.5 ng/L (<3.5-17.0)
--- NOTE | 2025-05-29 20:12 | PC.NURSE ---
Pt is aox4 resting at the bedside. NSR/tach on monitor with HR 100's. Pt is currently off bipap and on 6L NC sat at 92-93%. RR 23. Pt reports feeling a lot more comfortable and does not desire to go back on bipap. Pt is requesting something to eat and drink. ЕКАТЕРИНА made aware. Orders to continue monitoring pts O2 status and re check an ABG. Pt can eat something light at this time just in case pt has to go back on bipap pt will not vomit. Jello and deysi nick given to pt.
[2025-05-29 21:40] LABS: ABG HCO3 27 mmol/L (22-26); ABG O2 % Saturation 96.0 %
[2025-05-29 21:46] LABS: ABG Refer to POC result
--- NOTE | 2025-05-29 23:23 | PM.IMHP ---
History of Present Illness Date of Service: 05/29/25 Attending physician on admission: Cezar Hinson Chief Complaint: Shortness of breath Lissette Sanches is a 64 years old woman with past medical history significant for COPD on home oxygen 2 L/min via nasal cannula, essential hypertension, ongoing tobacco smoking half a pack daily, bipolar disorder and morbid obesity presents to the emergency department complaining of shortness of breath in the last couple of days associated with wheezing and cough. Denied chest pain, fever, chills. She did not report any acute gastrointestinal or genitourinary symptoms. Denied edema to the lower extremities. She smoke 10 tobacco cigarettes per day. Denied alcohol abuse or illicit drug use. In the ED, she has a have found to have tachypnea, tachypnea and low O2 saturation 50%. Therapy with BiPAP was given. She is currently on 6 L/min supplemental oxygen via nasal cannula. ABG is remarkable for significant respiratory acidosis with a pH of 7.26 and pCO2 62. It also showed significant hypoxia 62. Most recent ABG showed pH of 7.31, pCO2 52, PO2 81, HC03 27% and saturation of 96%. Troponin is 4.5. There are no electrolyte imbalances. BUN is 10 and creatinine 0.72. LFTs are normal. CXR showed hazy right mid to lower lung pulmonary opacities may represent developing pneumonia or asymmetric pulmonary edema. ED tx: Albuterol 3 mL neb, normal saline 3 L IV bolus, ceftriaxone 1 g IV, magnesium 2 g IV, Solu-Medrol 125 mg IV Review of Systems Review of Systems: All 12 systems were reviewed and normal except as noted in HPI. [facility] Medical History Mood disorder Tobacco use disorder Hx of head injury Anemia Panic anxiety syndrome Pelvic mass Anemia COPD (chronic obstructive pulmonary disease) Surgical History Hx of colonoscopy History of mandibular surgery H/O: hysterectomy Social History Household Members: Spouse Housing: Apartment Do you presently have visiting nurse or other home services: Yes Alcohol intake: unknown Patient Tobacco Use Status: Current everyday Tobacco user Tobacco use type: Cigarette Cigarette Packs Per Day: 1 Cigarettes Per Day: 20.0 Years Smoked: 40 Second Hand Smoke Exposure: No Substance Use Type: Marijuana service: No Current occupational status: employed Current occupation: [employer]/ left hand dominant Meds Allergies Allergy/AdvReac Type Severity Reaction Status Date / Time No Known Allergies Allergy Verified 05/29/25 14:49 Active Medications: Current Medications Acetaminophen (Acetaminophen 325 Mg Tablet) 975 mg PO Q6H PRN PRN Reason: Pain, Mild 1-3,fever,headache Albuterol Sulfate (Albuterol Sulfate (0.083%) 2.5 Mg/3 Ml Vial.Neb) 2.5 mg INHALE Q2H PRN PRN Reason: Shortness of Breath/Wheezing Albuterol/Ipratropium (Albuterol/Iprat 2.5/0.5mg 3 Ml Ampul.Neb) 3 ml INHALE RQ4H WHILE AWAKE JAHAIRA Calcium Carbonate (Calcium Carbonate 750 Mg Tab.Chew) 750 mg PO Q4H PRN PRN Reason: Heartburn Ceftriaxone Sodium (Ceftriaxone Sodium 1 Gm Vial) 1 gm IVPUSH Q24H JAHAIRA Enoxaparin Sodium (Enoxaparin Sodium 40 Mg/0.4 Ml Syringe) 40 mg SUBCUT Q24H JAHAIRA Azithromycin 500 mg/ Sodium (Chloride) 250 mls @ 125 mls/hr IV Q24H JAHAIRA Magnesium Hydroxide (Milk Of Magnesia 30 Ml Oral.Susp) 30 ml PO DAILY PRN PRN Reason: Constipation Melatonin (Melatonin 3 Mg Tablet) 6 mg PO BEDTIME PRN PRN Reason: Insomnia Sodium Chloride (0.9 % Sodium Chloride Flush 3 Ml Syringe) 3 ml IVFLUSH QSHIFT [facility] Home Medications ?Medication ?Instructions ?Recorded ?Confirmed ?Last Taken ?Type duloxetine 60 mg capsule,delayed 60 mg PO BID 09/01/21 02/15/24 02/14/24 History release sprinkle lamotrigine 200 mg tablet 200 mg PO BEDTIME 09/01/21 02/15/24 02/14/24 History ferrous sulfate 325 mg (65 mg 325 mg PO BEDTIME 02/14/22 02/15/24 07/01/22 History iron) tablet ibuprofen 800 mg tablet 1 tab PO TID PRN Pain 02/14/22 02/15/24 02/14/24 History quetiapine 25 mg tablet 1 tab PO BEDTIME 02/14/22 02/15/24 07/01/22 History omeprazole 40 mg capsule,delayed 40 mg PO DAILY 07/03/22 02/15/24 07/01/22 History release mirabegron 25 mg tablet,extended 25 mg PO DAILY 02/15/24 02/15/24 Unknown History release 24 hr (Myrbetriq) Physical Exam Vital Signs and Narrative: Vital Signs: Last Vital Signs Temp 98.6 F 05/29/25 19:39 Pulse 99 05/29/25 19:39 Resp 22 H 05/29/25 19:39 BP 129/75 05/29/25 19:39 Pulse Ox 95 05/29/25 19:39 O2 Del Method Nasal Cannula 05/29/25 19:39 O2 Flow Rate 6 05/29/25 19:39 BMI result Body Mass Index 43.0 Const: General: cooperative, comfortable, no acute distress, alert, awake and Physically active Nutritional Appearance: average body habitus Orientation/consciousness: patient oriented x3 Limitations: no limitations HEENT: Head: Yes normocephalic and Yes atraumatic Mouth: Normal oral and palatal mucosa present Eyes: General: appearance normal, both eyes and all related structures Sclerae: sclerae normal Pupils: Equal, round and reactive pupils present EOM: EOMs intact bilaterally Resp: Effort & Inspection: able to speak in complete sentences, no respiratory distress, tachypneic, no tripod positioning and symmetric chest movement Auscultation: no crackles and wheezes Cardio: Jugular venous distension: no JVD Rate: regular rate Rhythm: regular rhythm Heart sounds: no murmurs GI: Inspection: Yes normal to inspection Palpation (GI): nontender Neuro: General: patient oriented x3 Cranial nerves: Yes Equal, round and reactive pupils present Extrem: General: Yes normal to inspection, Yes full ROM and No edema Psych: Appearance: grossly normal Speech and movement: Normal speech and movement present Insight: Good insight present (Psych) Judgement: Good judgement present (Psych) Results Labs 05/29/25 17:38 05/29/25 17:38 Labs: Laboratory Results - last 24 hr 05/29/25 05/29/25 05/29/25 15:03 16:48 17:00 MCV MCH MCHC RDW Plt Count MPV Immature Gran % (Auto) Neut % (Auto) Lymph % (Auto) Young % (Auto) Eos % (Auto) Baso % (Auto) Lymph # (Auto) Young # (Auto) Eos # (Auto) Baso # (Auto) Abs Immat Gran (auto) Absolute Neuts (auto) Absolute Nucleated RBC Nucleated RBC % (auto) Hold Purple Top D-Dimer High Sensitivty O2 Saturation 86.0 ABG pH at Pt Temp 7.26 L ABG pCO2 at Pt Temp 62 H* ABG pO2 at Pt Temp 62 L ABG HCO3 28 H ABG Base Excess (Actual) 0.4 Anion Gap Estim Creat Clear Calc Estimated GFR Random Glucose Lactic Acid 0.8 Calcium Magnesium Total Bilirubin AST ALT Alkaline Phosphatase Total Protein Albumin Urine Color Yellow Urine Appearance Clear Urine pH 6.0 Ur Specific [place]rington <= 1.005 Urine Protein Negative Urine Glucose (UA) Negative Urine Ketones Negative Urine Blood Trace H Urine Nitrite Negative Ur Leukocyte Esterase Negative Urine RBC 0-2 Urine WBC 0-5 Ur Squamous Epith Cells 0-2 Urine Bacteria None Seen Hyaline Casts 0-2 COVID-19 (YULISSA) Positive A COVID-19 Clin Com See Note Influenza Type A (EVIE) Negative Influenza Type B (EVIE) Negative Influenza A & B Note See Note 05/29/25 05/29/25 05/29/25 17:38 17:38 21:36 MCV 70.8 L MCH 21.2 L MCHC 29.9 L RDW 17.5 H Plt Count 304 MPV 10.3 Immature Gran % (Auto) 2.5 H Neut % (Auto) 76.8 H Lymph % (Auto) 9.8 L Young % (Auto) 10.2 Eos % (Auto) 0.1 Baso % (Auto) 0.6 Lymph # (Auto) 0.9 L Young # (Auto) 0.9 Eos # (Auto) 0.0 Baso # (Auto) 0.1 Abs Immat Gran (auto) 0.23 H Absolute Neuts (auto) 7.0 Absolute Nucleated RBC 0.000 Nucleated RBC % (auto) 0.0 Hold Purple Top SEE NOTE SEE NOTE D-Dimer High Sensitivty 183 O2 Saturation 96.0 ABG pH at Pt Temp 7.31 L ABG pCO2 at Pt Temp 52 H ABG pO2 at Pt Temp 81 L ABG HCO3 27 H ABG Base Excess (Actual) 0.1 Anion Gap 14 Estim Creat Clear Calc 83.6 Estimated GFR > 60 Random Glucose 151 H Lactic Acid Calcium 8.5 D Magnesium 2.5 Total Bilirubin 0.2 AST 23 ALT 15 Alkaline Phosphatase 89 Total Protein 7.2 Albumin 4.5 Urine Color Urine Appearance Urine pH Ur Specific Arrington Urine Protein Urine Glucose (UA) Urine Ketones Urine Blood Urine Nitrite Ur Leukocyte Esterase Urine RBC Urine WBC Ur Squamous Epith Cells Urine Bacteria Hyaline Casts COVID-19 (YULISSA) COVID-19 Clin Com Influenza Type A (EVIE) Influenza Type B (EVIE) Influenza A & B Note Assessment and Plan (1) Acute and chronic respiratory failure, unspecified whether with hypoxia or hypercapnia: Qualifiers: Respiratory failure complication: hypoxia and hypercapnia Qualified Code(s): J96.21 - Acute and chronic respiratory failure with hypoxia; J96.22 - Acute and chronic respiratory failure with hypercapnia Status: Acute (2) COVID-19: Status: Acute Plan Lissette Sanches is a 64 y/o woman admitted with: Acute on chronic hypoxic and hypercapnic respiratory failure secondary to acute chronic obstructive pulmonary disease exacerbation associated with COVID-19 infection. CXR - right mid tolower lobe pulmonary opacity. Telemetry. Pulse oximetry. Supplemental O2 to keep O2 sats 90-91 %. Nocturnal BiPAP. Start empiric IV antibiotic therapy with ceftriaxone and azithromycin. Continue bronchodilator therapy and IV steroids. Rechecked VBG. Avoid sedatives. ID consult. Pulmonology consult. Microcytic anemia. Anemia workup. Continue to monitor for now. Essential hypertension. Continue amlodipine. Bipolar/mood disorder. Continue lamotrigine and duloxetine. Tobacco dependence. Tobacco cessation education. DVT prophylaxis: Lovenox Code status: Full Patient will need hospitalization for at least 2 midnights for acute on chronic hypoxic hypercapnic respiratory failure secondary to COPD exacerbation and COVID-19 infection treatment with supplemental oxygen, bronchodilator therapy, IV empiric antibiotic therapy and IV steroids. This note is constructed using voice recognition software. While every effort has been made to ensure accuracy, television news video editor errors may have been included. Quality Stroke Does the patient have a stroke diagnosis?: No VTE Prior VTE?: No VTE Risk Level:: Medical - moderate - high VTE Device Contraindication: Treatment Not Indicated VTE Drug Contraindication: N/A - Med Ordered
[2025-05-29] MEDS: 0.9 % Sodium Chloride Flush 3 ML SYRINGE IVFLUSH (23:31)
[2025-05-30] VITALS (12 sets, daily range): BP systolic 117–156; BP diastolic 63–83; PULSE 85–111; RESP 16–23; TEMP 36.5–37; O2SAT 92–95
[2025-05-30 01:12] LABS: B Type Natriuretic Peptide 91 pg/mL (<100)
[2025-05-30 04:27] LABS: Venous Blood Gas Refer to POC result
[2025-05-30 04:29] LABS: VBG HCO3 30 mmol/L (22-26); VBG O2 % Saturation 99.0 %
[2025-05-30 05:07] LABS: Hematocrit 36.8 % (37.0-47.0); Hemoglobin 10.5 g/dl (12.0-16.0); Imm Gran Abs Auto 0.17 X10*3/uL (0.00-0.03); Imm Gran Pct Auto 2.9 % (0.0-0.4); Lymphocytes Absolute Auto 0.4 X10*3/uL (1.2-4.9); MANUAL DIFF FLAG NO; Mean Corpuscular HGB Conc 28.5 g/dl (31.0-35.0); Mean Corpuscular Hemoglobin 20.7 pg (27.0-33.0); Mean Corpuscular Volume 72.4 fL (80.0-98.0); NRBC Abs Auto 0.020 X10*3/uL (0.0-0.012); NRBC Pct Auto 0.3 /100WBC (0.0-0.2); Platelet Count 285 X10*3/uL (160-400); Red Blood Count 5.08 X10*6/uL (4.20-5.50); White Blood Count 5.9 X10*3/uL (4.8-10.8)
[2025-05-30 05:08] LABS: Reticulocytes Absolute 0.164 X10*6/uL (0.026-0.095)
[2025-05-30 05:25] LABS: Anion Gap 13 (12-20); Blood Urea Nitrogen 12 mg/dL (9-16); Calcium 8.6 mg/dL (8.4-10.2); Carbon Dioxide 26 mmol/L (22-29); Chloride 107 mmol/L (96-108); Creatinine Clr Calc Pharmacy 93.5; Estimated Glomerular Filt Rate > 60; Iron 25 mcg/dL (30-160); Percent Iron Saturation 9 % (15-50); Potassium 4.5 mmol/L (3.3-5.1); Sodium 141 mmol/L (135-145); Total Iron Binding Capacity 272 mcg/dL (228-428); Unsaturated Iron Binding 247 ug/dL
[2025-05-30 05:45] LABS: Ferritin 133 ng/mL (10-250)
[2025-05-30 06:00] LABS: Folate 9.7 ng/mL (> or = 4.0); Vitamin B12 412 pg/mL (200-900)
[2025-05-30] MEDS: 0.9 % Sodium Chloride Flush 3 ML SYRINGE IVFLUSH ×2 (07:28→15:47)
[2025-05-30] MEDS: Albuterol/Iprat 2.5/0.5MG 3 ML AMPUL.NEB INHALE ×4 (07:48→21:44)
--- NOTE | 2025-05-30 08:55 | PHA.MEDREC ---
Addendum entered by Berry Butts PharmD 05/30/25 09:00: reviewed Original Note: Pharmacy Consult ? Medication Reconciliation Pharmacy has completed the medication reconciliation. Patient was able to confirm all of her medications. Patient states she is no longer taking Cyclobenzaprine 10 mg Ferrous sulfate 325 mg, Lorazepam 0.5 mg, Naproxen 500 mg, Nicotine patches, and Prednisone 20 mg. Patient confirmed she is now on Trelegy Ellipta. Patient last had her medications yesterday
[2025-05-30 09:26] LABS: Procalcitonin 0.04 ng/mL
--- NOTE | 2025-05-30 12:21 | PM.CNPUL ---
History of Present Illness History of Present Illness Consult date: 05/30/25 Chief complaint: Hypoxic & Hypercapnic Respiratory Failure, COVID + Narrative: 64-year-old lady with underlying COPD on 2 L of supplemental oxygen, hypotension, EARNEST on CPAP, bipolar disorder, obesity admitted on 05/30/2025 with dyspnea over several days associated with wheezing and productive cough. On ER evaluation patient COVID positive and noted to have acute hypercapnia initially requiring BiPAP support, now titrated off. On my exam patient appears to be at baseline with O2 saturation of 91% on 2 L of supplemental oxygen. Review of Systems Constitutional: Constitutional: Denies daytime sleepiness, Denies excessive sweating, Denies fatigue, Denies fever(s), Denies lethargy, Denies malaise, Denies night sweats, Denies snoring and Denies weight loss Eyes: Eyes: Denies blurry vision and Denies itchy eyes ENT: Denies nasal congestion, Denies post nasal drip, Denies sinus pain, Denies sinus pressure and Denies other ( Thrush) Cardiovascular: Cardiovascular: Denies chest pain, Denies pedal edema, Denies dyspnea, Reports dyspnea on exertion, Denies orthopnea and Denies paroxysmal nocturnal dyspnea Respiratory: Respiratory: Denies cough, Denies hemoptysis, Denies excessive phlegm production, Denies dyspnea, Reports dyspnea on exertion, Denies snoring and Reports wheezing Gastrointestinal: Gastrointestinal: Denies abdominal pain and Denies heartburn Musculoskeletal: Musculoskeletal: Denies myalgias, Denies arthralgias and Denies joint swelling Integumentary/Breasts: Skin/Breast: Denies rash Neurologic: Denies memory loss and Denies seizure-like activity Psychiatric: Psychiatric: Denies abnormal sleep pattern, Denies anxiety and Denies memory loss Endocrine: Endocrine: Denies excessive sweating, Denies fatigue and Denies heat intolerance Hematologic/Lymphatic: Hematologic/Lymphatic: Denies easy bruising Allergic/Immunologic: Allergic/Immunologic: Denies itchy eyes, Denies seasonal rhinorrhea and Reports wheezing PMFSH Past Medical History Medical History Mood disorder Tobacco use disorder Hx of head injury Anemia Panic anxiety syndrome Pelvic mass Anemia COPD (chronic obstructive pulmonary disease) Surgical History Surgical History Hx of colonoscopy History of mandibular surgery H/O: hysterectomy Social History Social History Household Members: Spouse Housing: Apartment Do you presently have visiting nurse or other home services: Yes Alcohol intake: unknown Patient Tobacco Use Status: Current everyday Tobacco user Tobacco use type: Cigarette Cigarette Packs Per Day: 1 Cigarettes Per Day: 20.0 Years Smoked: 40 Smoked in Last 30 Days: Yes Second Hand Smoke Exposure: No Use of substances other than those prescribed or required for medical reasons: No Substance Use Type: Marijuana Advance Directives: No Advance Directives Information Provided: No Do you have a plan to hurt others: No Plan Nutrition Risks: No Nutritional Risk Patient : No service: No Current occupational status: employed Current occupation: [employer]/ left hand dominant Meds Allergies Allergy/AdvReac Type Severity Reaction Status Date / Time No Known Allergies Allergy Verified 05/29/25 14:49 Active Medications: Current Medications Acetaminophen (Acetaminophen 325 Mg Tablet) 975 mg PO Q6H PRN PRN Reason: Pain, Mild 1-3,fever,headache Last Admin: 05/30/25 09:13 Dose: 975 mg Albuterol Sulfate (Albuterol Sulfate (0.083%) 2.5 Mg/3 Ml Vial.Neb) 2.5 mg INHALE Q2H PRN PRN Reason: Shortness of Breath/Wheezing Albuterol/Ipratropium (Albuterol/Iprat 2.5/0.5mg 3 Ml Ampul.Neb) 3 ml INHALE RQ4H WHILE AWAKE [facility] Last Admin: 05/30/25 10:45 Dose: 3 ml Calcium Carbonate (Calcium Carbonate 750 Mg Tab.Chew) 750 mg PO Q4H PRN PRN Reason: Heartburn Ceftriaxone Sodium (Ceftriaxone Sodium 1 Gm Vial) 1 gm IVPUSH Q24H JAHAIRA Enoxaparin Sodium (Enoxaparin Sodium 40 Mg/0.4 Ml Syringe) 40 mg SUBCUT Q24H [facility] Last Admin: 05/30/25 07:30 Dose: 40 mg Azithromycin 500 mg/ Sodium (Chloride) 250 mls @ 125 mls/hr IV Q24H [facility] Last Infusion: 05/30/25 01:30 Dose: Infused Magnesium Hydroxide (Milk Of Magnesia 30 Ml Oral.Susp) 30 ml PO DAILY PRN PRN Reason: Constipation Melatonin (Melatonin 3 Mg Tablet) 6 mg PO BEDTIME PRN PRN Reason: Insomnia Last Admin: 05/30/25 00:24 Dose: 6 mg Methylprednisolone Sodium Succinate (Methylprednisolone Sod Succ 40 Mg/Ml Vial) 40 mg IVPUSH Q8H [facility] Last Admin: 05/30/25 07:28 Dose: 40 mg Sodium Chloride (0.9 % Sodium Chloride Flush 3 Ml Syringe) 3 ml IVFLUSH QSHIFT [facility] Last Admin: 05/30/25 07:28 Dose: 3 ml Home Medications ?Medication ?Instructions ?Recorded ?Confirmed ?Last Taken ?Type duloxetine 60 mg capsule,delayed 60 mg PO BID 09/01/21 05/30/25 05/29/25 History release sprinkle lamotrigine 200 mg tablet 200 mg PO BEDTIME 09/01/21 05/30/25 05/29/25 History ibuprofen 800 mg tablet 800 mg PO TID PRN Pain 02/14/22 05/30/25 02/14/24 History quetiapine 25 mg tablet 25 mg PO BEDTIME 02/14/22 05/30/25 05/29/25 History omeprazole 40 mg capsule,delayed 40 mg PO DAILY@0600 07/03/22 05/30/25 05/29/25 History release mirabegron 25 mg tablet,extended 25 mg PO DAILY 02/15/24 05/30/25 05/29/25 History release 24 hr (Myrbetriq) albuterol sulfate 90 mcg/actuation 2 puff inhalation Q4H PRN 05/30/25 05/30/25 Unknown History aerosol inhaler Shortness Of Breath Or Wheezing fluticasone fur. 100 mcg-umeclid 1 ea inhalation DAILY 05/30/25 05/30/25 05/29/25 History 62.5 mcg-vilant 25 mcg inhalat.powder (Trelegy Ellipta) zolpidem 5 mg tablet 5 mg PO BEDTIME PRN Sleep 05/30/25 05/30/25 Unknown History Physical Exam Vital Signs: Vital Signs: Last Vital Signs Temp 98.6 F 05/30/25 12:00 Pulse 101 H 05/30/25 12:00 Resp 17 05/30/25 12:00 BP 131/76 05/30/25 12:00 Pulse Ox 94 05/30/25 12:00 O2 Del Method Nasal Cannula 05/30/25 12:00 O2 Flow Rate 6 05/30/25 12:00 BMI result Body Mass Index 43.0 Const: General: no acute distress, alert and awake Nutritional Appearance: obese Eyes: Sclerae: sclerae normal EOM: EOMs intact bilaterally Neck: Neck: Yes no lymphadenopathy, Yes trachea midline and Yes supple Resp: Effort & Inspection: normal respiratory effort and no respiratory distress Auscultation: wheezes (Expiratory bilateral) Cardio: Rate: regular rate Rhythm: regular rhythm Heart sounds: no gallops, no murmurs and no rubs GI: Palpation (GI): Soft to palpation and Other GI palpation findings present ( Nontender) Auscultation: normal bowel sounds Extrem: General: Yes no pedal edema, No clubbing and No cyanosis Results Laboratory Findings 05/30/25 04:21 05/30/25 04:21 Abnormal lab findings: Abnormal Labs 05/29/25 05/29/25 05/29/25 15:03 16:48 17:00 Hgb Hct MCV MCH MCHC RDW Immature Gran % (Auto) Neut % (Auto) Lymph % (Auto) Lymph # (Auto) Abs Immat Gran (auto) Absolute Nucleated RBC Nucleated RBC % (auto) Absolute Retic Percent Retic Immature Retic Fraction Retic Hgb Equivalent ABG pH at Pt Temp 7.26 L ABG pCO2 at Pt Temp 62 H* ABG pO2 at Pt Temp 62 L ABG HCO3 28 H VBG HCO3 Random Glucose Iron % Saturation C-Reactive Protein Urine Blood Trace H COVID-19 (YULISSA) Positive A 05/29/25 05/29/25 05/30/25 17:38 21:36 04:21 Hgb 10.9 L 10.5 L Hct 36.4 L 36.8 L MCV 70.8 L 72.4 L MCH 21.2 L 20.7 L MCHC 29.9 L 28.5 L RDW 17.5 H 17.4 H Immature Gran % (Auto) 2.5 H 2.9 H Neut % (Auto) 76.8 H 86.7 H Lymph % (Auto) 9.8 L 7.5 L Lymph # (Auto) 0.9 L 0.4 L Abs Immat Gran (auto) 0.23 H 0.17 H Absolute Nucleated RBC 0.020 H Nucleated RBC % (auto) 0.3 H Absolute Retic 0.164 H Percent Retic 3.3 H Immature Retic Fraction 24.1 H Retic Hgb Equivalent 20.4 L ABG pH at Pt Temp 7.31 L ABG pCO2 at Pt Temp 52 H ABG pO2 at Pt Temp 81 L ABG HCO3 27 H VBG HCO3 Random Glucose 151 H 144 H Iron 25 L % Saturation 9 L C-Reactive Protein 1.79 H Urine Blood COVID-19 (YULISSA) 05/30/25 04:26 Hgb Hct MCV MCH MCHC RDW Immature Gran % (Auto) Neut % (Auto) Lymph % (Auto) Lymph # (Auto) Abs Immat Gran (auto) Absolute Nucleated RBC Nucleated RBC % (auto) Absolute Retic Percent Retic Immature Retic Fraction Retic Hgb Equivalent ABG pH at Pt Temp ABG pCO2 at Pt Temp ABG pO2 at Pt Temp ABG HCO3 VBG HCO3 30 H Random Glucose Iron % Saturation C-Reactive Protein Urine Blood COVID-19 (YULISSA) Assessment and Plan (1) COPD exacerbation: Status: Acute (2) Acute respiratory failure with hypercapnia: Status: Acute (3) COVID-19: Status: Acute Plan Impression: 64-year-old lady with underlying 2 L dependent COPD, EARNEST on CPAP, bipolar disorder admitted with acute hypercapnic respiratory failure secondary to COPD exacerbation secondary to COVID-19 initially requiring BiPAP support, now titrated off. Recommendation: Agree with empiric therapy with systemic glucocorticoids and nebulized bronchodilators. Avoid hyperoxia and maintain O2 saturation of 89-92%. Suggests nocturnal BiPAP while hospitalized. Procedures Date of Service Date of Service: 05/30/25
--- NOTE | 2025-05-30 13:48 | HO.PM.IMPN ---
Subjective Subjective Date of Service: 05/30/25 Interval History: breathing improved, coughing with sputum no prior Covid infection, has been vaccinated though Review of Systems Review of Systems: Yes all other systems are reviewed and are negative Physical Exam Vital Signs: Vital Signs: Last Vital Signs Temp 98.6 F 05/30/25 12:00 Pulse 101 H 05/30/25 12:00 Resp 17 05/30/25 12:00 BP 131/76 05/30/25 12:00 Pulse Ox 94 05/30/25 12:00 O2 Del Method Nasal Cannula 05/30/25 12:00 O2 Flow Rate 6 05/30/25 12:00 BMI result Body Mass Index 43.0 Gen: in no acute distress HEENT: sclera anicteric, moist mucus membranes Neck: supple Lungs: diminshed, scattered wheezing Heart: regular rate and rhythm, no murmurs Abd: soft, non-tender, non-distended, obese Ext: no edema Skin: warm/well-perfused Neuro: alert and oriented x3, no focal findings Psych: appropriate affect Objective Data Active Medications Acetaminophen (Acetaminophen 325 Mg Tablet) 975 mg PO Q6H PRN PRN Reason: Pain, Mild 1-3,fever,headache Last Admin: 05/30/25 09:13 Dose: 975 mg Documented By: NAFISA Albuterol Sulfate (Albuterol Sulfate (0.083%) 2.5 Mg/3 Ml Vial.Neb) 2.5 mg INHALE Q2H PRN PRN Reason: Shortness of Breath/Wheezing Albuterol/Ipratropium (Albuterol/Iprat 2.5/0.5mg 3 Ml Ampul.Neb) 3 ml INHALE RQ4H WHILE AWAKE ON LICENSE OF [facility] Last Admin: 05/30/25 10:45 Dose: 3 ml Documented By: BLASCTash Calcium Carbonate (Calcium Carbonate 750 Mg Tab.Chew) 750 mg PO Q4H PRN PRN Reason: Heartburn Ceftriaxone Sodium (Ceftriaxone Sodium 1 Gm Vial) 1 gm IVPUSH Q24H ON LICENSE OF [facility] Enoxaparin Sodium (Enoxaparin Sodium 40 Mg/0.4 Ml Syringe) 40 mg SUBCUT Q24H ON LICENSE OF [facility] Last Admin: 05/30/25 07:30 Dose: 40 mg Documented By: NAFISA Azithromycin 500 mg/ Sodium (Chloride) 250 mls @ 125 mls/hr IV Q24H ON LICENSE OF [facility] Last Infusion: 05/30/25 01:30 Dose: Infused Documented By: REGAN Magnesium Hydroxide (Milk Of Magnesia 30 Ml Oral.Susp) 30 ml PO DAILY PRN PRN Reason: Constipation Melatonin (Melatonin 3 Mg Tablet) 6 mg PO BEDTIME PRN PRN Reason: Insomnia Last Admin: 05/30/25 00:24 Dose: 6 mg Documented By: REGAN Methylprednisolone Sodium Succinate (Methylprednisolone Sod Succ 40 Mg/Ml Vial) 40 mg IVPUSH Q8H ON LICENSE OF [facility] Last Admin: 05/30/25 07:28 Dose: 40 mg Documented By: NAFISA Sodium Chloride (0.9 % Sodium Chloride Flush 3 Ml Syringe) 3 ml IVFLUSH QSHIFT ON LICENSE OF [facility] Last Admin: 05/30/25 07:28 Dose: 3 ml Documented By: NAFISA Labs 05/30/25 04:21 05/30/25 04:21 Labs: Laboratory Results - last 24 hr 05/29/25 05/29/25 05/29/25 15:03 16:48 17:00 MCV MCH MCHC RDW Plt Count MPV Immature Gran % (Auto) Neut % (Auto) Lymph % (Auto) Fisher % (Auto) Eos % (Auto) Baso % (Auto) Lymph # (Auto) Fisher # (Auto) Eos # (Auto) Baso # (Auto) Abs Immat Gran (auto) Absolute Neuts (auto) Absolute Nucleated RBC Nucleated RBC % (auto) Absolute Retic Percent Retic Immature Retic Fraction Retic Hgb Equivalent Hold Purple Top D-Dimer High Sensitivty O2 Saturation 86.0 ABG pH at Pt Temp 7.26 L ABG pCO2 at Pt Temp 62 H* ABG pO2 at Pt Temp 62 L ABG HCO3 28 H ABG Base Excess (Actual) 0.4 VBG pH VBG pCO2 VBG pO2 VBG HCO3 VBG O2 Saturation VBG Base Excess Anion Gap Estim Creat Clear Calc Estimated GFR Random Glucose Lactic Acid 0.8 Calcium Magnesium Iron TIBC % Saturation Unsat Iron Binding Ferritin Total Bilirubin AST ALT Alkaline Phosphatase C-Reactive Protein B-Natriuretic Peptide Total Protein Albumin Vitamin B12 Folate Procalcitonin Urine Color Yellow Urine Appearance Clear Urine pH 6.0 Ur Specific [place] <= 1.005 Urine Protein Negative Urine Glucose (UA) Negative Urine Ketones Negative Urine Blood Trace H Urine Nitrite Negative Ur Leukocyte Esterase Negative Urine RBC 0-2 Urine WBC 0-5 Ur Squamous Epith Cells 0-2 Urine Bacteria None Seen Hyaline Casts 0-2 COVID-19 (YULISSA) Positive A COVID-19 Clin Com See Note Influenza Type A (EVIE) Negative Influenza Type B (EVIE) Negative Influenza A & B Note See Note 05/29/25 05/29/25 05/29/25 17:38 17:38 21:36 MCV 70.8 L MCH 21.2 L MCHC 29.9 L RDW 17.5 H Plt Count 304 MPV 10.3 Immature Gran % (Auto) 2.5 H Neut % (Auto) 76.8 H Lymph % (Auto) 9.8 L Fisher % (Auto) 10.2 Eos % (Auto) 0.1 Baso % (Auto) 0.6 Lymph # (Auto) 0.9 L Fisher # (Auto) 0.9 Eos # (Auto) 0.0 Baso # (Auto) 0.1 Abs Immat Gran (auto) 0.23 H Absolute Neuts (auto) 7.0 Absolute Nucleated RBC 0.000 Nucleated RBC % (auto) 0.0 Absolute Retic Percent Retic Immature Retic Fraction Retic Hgb Equivalent Hold Purple Top SEE NOTE SEE NOTE D-Dimer High Sensitivty 183 O2 Saturation 96.0 ABG pH at Pt Temp 7.31 L ABG pCO2 at Pt Temp 52 H ABG pO2 at Pt Temp 81 L ABG HCO3 27 H ABG Base Excess (Actual) 0.1 VBG pH VBG pCO2 VBG pO2 VBG HCO3 VBG O2 Saturation VBG Base Excess Anion Gap 14 Estim Creat Clear Calc 83.6 Estimated GFR > 60 Random Glucose 151 H Lactic Acid Calcium 8.5 D Magnesium 2.5 Iron TIBC % Saturation Unsat Iron Binding Ferritin Total Bilirubin 0.2 AST 23 ALT 15 Alkaline Phosphatase 89 C-Reactive Protein B-Natriuretic Peptide Total Protein 7.2 Albumin 4.5 Vitamin B12 Folate Procalcitonin Urine Color Urine Appearance Urine pH Ur Specific [place] Urine Protein Urine Glucose (UA) Urine Ketones Urine Blood Urine Nitrite Ur Leukocyte Esterase Urine RBC Urine WBC Ur Squamous Epith Cells Urine Bacteria Hyaline Casts COVID-19 (YULISSA) COVID-19 Clin Com Influenza Type A (EVIE) Influenza Type B (EVIE) Influenza A & B Note 05/30/25 05/30/25 05/30/25 00:42 04:21 04:26 MCV 72.4 L MCH 20.7 L MCHC 28.5 L RDW 17.4 H Plt Count 285 MPV 10.0 Immature Gran % (Auto) 2.9 H Neut % (Auto) 86.7 H Lymph % (Auto) 7.5 L Fisher % (Auto) 2.4 Eos % (Auto) 0.0 Baso % (Auto) 0.5 Lymph # (Auto) 0.4 L Fisher # (Auto) 0.1 Eos # (Auto) 0.0 Baso # (Auto) 0.0 Abs Immat Gran (auto) 0.17 H Absolute Neuts (auto) 5.1 Absolute Nucleated RBC 0.020 H Nucleated RBC % (auto) 0.3 H Absolute Retic 0.164 H Percent Retic 3.3 H Immature Retic Fraction 24.1 H Retic Hgb Equivalent 20.4 L Hold Purple Top D-Dimer High Sensitivty O2 Saturation ABG pH at Pt Temp ABG pCO2 at Pt Temp ABG pO2 at Pt Temp ABG HCO3 ABG Base Excess (Actual) VBG pH 7.35 VBG pCO2 53 VBG pO2 99 VBG HCO3 30 H VBG O2 Saturation 99.0 VBG Base Excess 3.4 Anion Gap 13 Estim Creat Clear Calc 93.5 Estimated GFR > 60 Random Glucose 144 H Lactic Acid Calcium 8.6 Magnesium Iron 25 L TIBC 272 % Saturation 9 L Unsat Iron Binding 247 Ferritin 133 Total Bilirubin AST ALT Alkaline Phosphatase C-Reactive Protein 1.79 H B-Natriuretic Peptide 91 Total Protein Albumin Vitamin B12 412 Folate 9.7 Procalcitonin 0.04 Urine Color Urine Appearance Urine pH Ur Specific [place] Urine Protein Urine Glucose (UA) Urine Ketones Urine Blood Urine Nitrite Ur Leukocyte Esterase Urine RBC Urine WBC Ur Squamous Epith Cells Urine Bacteria Hyaline Casts COVID-19 (YULISSA) COVID-19 Clin Com Influenza Type A (EVIE) Influenza Type B (EVIE) Influenza A & B Note Assessment and Plan (1) COVID-19: Status: Acute Assessment and Plan: d2, 64yo F with obesity, COPD on home O2 2L, EARNEST on CPAP, tobacco abuse, HTN, bipolar disorder presenting with 1 wk of dyspnea/cough, found to have acute/chronic resp acidosis, hypoxia, pneumonia and Covid-19 infection acute/chronic hypoxic/hypercapneic resp failure due to COPD exacerbation due to Covid-19 infection with pneumonia - goal SaO2 90-92, nocturnal BiPAP, remdesivir 05/30-, ceftriaxone/azithromycin 05/29-, methylprednisolone 05/29-, nebs WILDA - supplement upon discharge HTN - amlodipine bipolar disorder - duloxetine, lamotrigine, quetiapine tobacco abuse - NRT VTE ppx - enoxaparin morbid obesity - diet/exercise counseling dispo - TBD In my clinical judgment, the patient requires continued inpatient hospitalization for the following reasons: resp failure Total time managing care of this patient today: 35 minutes. Quality Stroke Does the patient have a stroke diagnosis?: No VTE Prior VTE?: No VTE Risk Level:: Medical - moderate - high VTE Device Contraindication: Treatment Not Indicated VTE Drug Contraindication: N/A - Med Ordered
[2025-05-30] MEDS: Remdesivir 200 MG in 0.9 % Sodium Chloride 210 ML 105 MG IV (16:10)
--- NOTE | 2025-05-30 23:10 | PC.NURSE ---
pt c/o warmth in the room, asking if we can bring ac and/ or ac. Pt informed that I turned temp all the way down.
--- NOTE | 2025-05-30 23:11 | PC.NURSE ---
pt asking for night time med at 2128, explained that I have to medicated very sick pt and I will be right back with her.
--- NOTE | 2025-05-30 23:11 | PC.NURSE ---
I asked charge nurse to help me medicating my pt because I was behind due to admission at the beginning of the shift, pt c/o waiting for medication, threatening staff and saying she will leave a review .
[2025-05-31] VITALS (13 sets, daily range): BP systolic 118–154; BP diastolic 71–80; PULSE 98–109; RESP 18–24; TEMP 36.3–36.9; O2SAT 90–96
[2025-05-31] MEDS: 0.9 % Sodium Chloride Flush 3 ML SYRINGE IVFLUSH ×4 (00:06→20:31)
[2025-05-31 06:42] LABS: Venous Blood Gas Refer to POC result
[2025-05-31 06:47] LABS: VBG HCO3 33 mmol/L (22-26); VBG O2 % Saturation 90.0 %
[2025-05-31 07:02] LABS: Anion Gap 14 (12-20); Blood Urea Nitrogen 18 mg/dL (9-16); Calcium 9.1 mg/dL (8.4-10.2); Carbon Dioxide 31 mmol/L (22-29); Chloride 104 mmol/L (96-108); Creatinine Clr Calc Pharmacy 97.8; Estimated Glomerular Filt Rate > 60; Potassium 4.9 mmol/L (3.3-5.1); Sodium 144 mmol/L (135-145)
[2025-05-31 07:06] LABS: Hematocrit 37.8 % (37.0-47.0); Hemoglobin 10.9 g/dl (12.0-16.0); Mean Corpuscular HGB Conc 28.8 g/dl (31.0-35.0); Mean Corpuscular Hemoglobin 20.8 pg (27.0-33.0); Mean Corpuscular Volume 72.3 fL (80.0-98.0); NRBC Abs Auto 0.020 X10*3/uL (0.0-0.012); NRBC Pct Auto 0.2 /100WBC (0.0-0.2); Platelet Count 290 X10*3/uL (160-400); Red Blood Count 5.23 X10*6/uL (4.20-5.50); White Blood Count 12.7 X10*3/uL (4.8-10.8)
[2025-05-31] MEDS: Fluticasone/Umeclidinium/Vilanterol 100/62.5/25 BLST.W.DEV 1 PUFF INHALE (07:46)
[2025-05-31] MEDS: Albuterol/Iprat 2.5/0.5MG 3 ML AMPUL.NEB INHALE ×4 (07:47→19:41)
--- NOTE | 2025-05-31 10:56 | P.PNIM_ITS ---
Subjective Subjective Date of Service: 05/31/25 Interval History: c/o worsning dyspnea/tachypnea, now on 5L O2 no hx leg or lung clots Review of Systems Review of Systems: Yes all other systems are reviewed and are negative Physical Exam 2 Vital Signs: Vital Signs: Last Vital Signs Temp 97.9 F 05/31/25 07:34 Pulse 100 05/31/25 07:48 Resp 22 H 05/31/25 09:00 BP 147/78 H 05/31/25 07:34 Pulse Ox 92 05/31/25 07:34 O2 Del Method Nasal Cannula 05/31/25 07:34 O2 Flow Rate 4 05/31/25 07:34 BMI result Body Mass Index 43.0 Gen: in no acute distress HEENT: sclera anicteric, moist mucus membranes Neck: supple Lungs: diminshed, diffuse inspiratrory rhonchi and expiratory wheezing Heart: regular rate and rhythm, no murmurs Abd: soft, non-tender, non-distended, obese Ext: no edema Skin: warm/well-perfused Neuro: alert and oriented x3, no focal findings Psych: appropriate affect Objective Data Active Medications Acetaminophen (Acetaminophen 325 Mg Tablet) 975 mg PO Q6H PRN PRN Reason: Pain, Mild 1-3,fever,headache Last Admin: 05/30/25 09:13 Dose: 975 mg Documented By: NAFISA Albuterol Sulfate (Albuterol Sulfate (0.083%) 2.5 Mg/3 Ml Vial.Neb) 2.5 mg INHALE Q2H PRN PRN Reason: Shortness of Breath/Wheezing Albuterol/Ipratropium (Albuterol/Iprat 2.5/0.5mg 3 Ml Ampul.Neb) 3 ml INHALE RQ4H WHILE AWAKE [facility] Last Admin: 05/31/25 07:47 Dose: 3 ml Documented By: ANSELMO Amlodipine Besylate (Amlodipine Besylate 5 Mg Tablet) 5 mg PO DAILY [facility]; Protocol Last Admin: 05/31/25 08:47 Dose: 5 mg Documented By: TWYLA Calcium Carbonate (Calcium Carbonate 750 Mg Tab.Chew) 750 mg PO Q4H PRN PRN Reason: Heartburn Ceftriaxone Sodium (Ceftriaxone Sodium 1 Gm Vial) 1 gm IVPUSH Q24H [facility] Last Admin: 05/30/25 15:41 Dose: 1 gm Documented By: DIANNA Duloxetine HCl (Duloxetine Hcl 60 Mg Capsule.) 60 mg PO BID [facility] Last Admin: 05/31/25 08:47 Dose: 60 mg Documented By: TWYLA Enoxaparin Sodium (Enoxaparin Sodium 40 Mg/0.4 Ml Syringe) 40 mg SUBCUT Q24H [facility] Last Admin: 05/31/25 08:47 Dose: 40 mg Documented By: TWYLA Fluticasone/Umeclidinium/Vilanterol (Fluticasone/Umeclidinium/Vilanterol 100/62.5/ Blst.W.Dev) 1 puff INHALE RDAILY [facility] Last Admin: 05/31/25 07:46 Dose: 1 puff Documented By: ANSELMO Azithromycin 500 mg/ Sodium (Chloride) 250 mls @ 125 mls/hr IV Q24H [facility] Last Infusion: 05/31/25 02:07 Dose: Infused Documented By: MICKY Remdesivir 100 mg/ Sodium (Chloride) 230 mls @ 115 mls/hr IV Q24H [facility] Stop: 06/03/25 15:59 Lamotrigine (Lamotrigine 100 Mg Tablet) 200 mg PO BEDTIME [facility] Last Admin: 05/30/25 22:05 Dose: 200 mg Documented By: ADDY Magnesium Hydroxide (Milk Of Magnesia 30 Ml Oral.Susp) 30 ml PO DAILY PRN PRN Reason: Constipation Melatonin (Melatonin 3 Mg Tablet) 6 mg PO BEDTIME PRN PRN Reason: Insomnia Last Admin: 05/30/25 00:24 Dose: 6 mg Documented By: REGAN Methylprednisolone Sodium Succinate (Methylprednisolone Sod Succ 40 Mg/Ml Vial) 40 mg IVPUSH Q8H [facility] Last Admin: 05/31/25 08:47 Dose: 40 mg Documented By: TWYLA Mirabegron (Mirabegron 25 Mg Tab.Er.24h) 25 mg PO DAILY [facility] Last Admin: 05/31/25 08:48 Dose: 25 mg Documented By: TWYLA Omeprazole (Omeprazole 40 Mg Capsule.) 40 mg PO DAILY@0630 [facility] Last Admin: 05/31/25 06:22 Dose: 40 mg Documented By: MICKY Quetiapine Fumarate (Quetiapine Fumarate 25 Mg Tablet) 25 mg PO BEDTIME [facility] Last Admin: 05/30/25 22:05 Dose: 25 mg Documented By: ADDY Sodium Chloride (0.9 % Sodium Chloride Flush 3 Ml Syringe) 3 ml IVFLUSH QSHIFT [facility] Last Admin: 05/31/25 08:47 Dose: 3 ml Documented By: TWYLA Zolpidem Tartrate (Zolpidem Tartrate 5 Mg Tablet) 5 mg PO BEDTIME PRN PRN Reason: Sleep Labs 05/31/25 06:28 05/31/25 06:28 Labs: Laboratory Results - last 24 hr 05/31/25 05/31/25 06:28 06:42 MCV 72.3 L MCH 20.8 L MCHC 28.8 L RDW 17.5 H Plt Count 290 MPV 10.4 Absolute Nucleated RBC 0.020 H Nucleated RBC % (auto) 0.2 VBG pH 7.39 VBG pCO2 54 VBG pO2 62 VBG HCO3 33 H VBG O2 Saturation 90.0 VBG Base Excess 7.1 Anion Gap 14 Estim Creat Clear Calc 97.8 Estimated GFR > 60 Random Glucose 143 H Calcium 9.1 Microbiology Microbiology Results: Microbiology 05/29/25 15:12 Blood Culture - Preliminary Blood - Venous No growth after 24 hours. 05/29/25 15:03 Blood Culture - Preliminary Blood - Venous No growth after 24 hours. Assessment and Plan (1) COVID-19: Status: Acute Assessment and Plan: d2, 64yo F with obesity, COPD on home O2 2L, tobacco abuse, HTN, bipolar disorder presenting with 1 wk of dyspnea/cough, found to have acute/chronic resp acidosis, hypoxia, pneumonia and Covid-19 infection acute/chronic hypoxic/hypercapneic resp failure due to COPD exacerbation due to Covid-19 infection with pneumonia - goal SaO2 90-92, nocturnal BiPAP, remdesivir 05/30-, ceftriaxone/azithromycin 05/29-, methylprednisolone 05/29-, nebs - CT angio to r/o PE - will need outpt PSG and Pulm f/u [does not have pulmonlogist] WILDA - supplement upon discharge HTN - amlodipine bipolar disorder - duloxetine, lamotrigine, quetiapine tobacco abuse - NRT VTE ppx - enoxaparin morbid obesity - diet/exercise counseling dispo - PT eval prior to discharge In my clinical judgment, the patient requires continued inpatient hospitalization for the following reasons: resp failure, worsening hypoxia Total time managing care of this patient today: 35 minutes. Quality Stroke Does the patient have a stroke diagnosis?: No VTE Prior VTE?: No VTE Risk Level:: Medical - moderate - high VTE Device Contraindication: Treatment Not Indicated VTE Drug Contraindication: N/A - Med Ordered
[2025-05-31] MEDS: iohexoL 350 MG/ML 100 ML INFUS..BTL IV (12:09)
[2025-05-31] MEDS: Remdesivir 100 MG in 0.9 % Sodium Chloride 230 ML 115 MG IV (14:59)
--- NOTE | 2025-05-31 16:07 | MHC.CM.PN ---
PT LIVES WITH HER S/O AND IS INDEPENDENT WITH CARE SHE HAS NO DME OR SERVICES DECLINES A HCP PCP: BLANKA KENNY DCP: HOME VIA PRIVATE TRANSPORT
--- NOTE | 2025-05-31 16:53 | W.PM.IDCN ---
History of Present Illness Data of Consult Service Date: 05/31/25 Requesting physician: Maureen Benton Primary Care Provider: Daljit Irby MD HPI Reason for consult: COVID,shortness of breath She has COVID for two days. She has lung scarring. She has procalcitonin of .04. Review of Systems Review of Systems: Yes all other systems are reviewed and are negative PMFSH Past Medical History Medical History Mood disorder Tobacco use disorder Hx of head injury Anemia Panic anxiety syndrome Pelvic mass Anemia COPD (chronic obstructive pulmonary disease) Family History Family history: reviewed and not pertinent Surgical History Surgical History Hx of colonoscopy History of mandibular surgery H/O: hysterectomy Social History Social History Household Members: Friend(s) Housing: Apartment Do you presently have visiting nurse or other home services: No Alcohol intake: unknown Comment: low fall risk Patient Tobacco Use Status: Current everyday Tobacco user Tobacco use type: Cigarette Cigarette Packs Per Day: 1 Cigarettes Per Day: 10 Years Smoked: 40 Second Hand Smoke Exposure: Yes Substance Use Type: Marijuana service: No Current occupational status: employed Current occupation: [employer]/ left hand dominant Meds Allergies Allergy/AdvReac Type Severity Reaction Status Date / Time No Known Allergies Allergy Verified 05/29/25 14:49 Active Medications: Current Medications Acetaminophen (Acetaminophen 325 Mg Tablet) 975 mg PO Q6H PRN PRN Reason: Pain, Mild 1-3,fever,headache Last Admin: 05/30/25 09:13 Dose: 975 mg Albuterol Sulfate (Albuterol Sulfate (0.083%) 2.5 Mg/3 Ml Vial.Neb) 2.5 mg INHALE Q2H PRN PRN Reason: Shortness of Breath/Wheezing Albuterol/Ipratropium (Albuterol/Iprat 2.5/0.5mg 3 Ml Ampul.Neb) 3 ml INHALE RQ4H WHILE AWAKE [facility] Last Admin: 05/31/25 15:16 Dose: 3 ml Amlodipine Besylate (Amlodipine Besylate 5 Mg Tablet) 5 mg PO DAILY [facility]; Protocol Last Admin: 05/31/25 08:47 Dose: 5 mg Calcium Carbonate (Calcium Carbonate 750 Mg Tab.Chew) 750 mg PO Q4H PRN PRN Reason: Heartburn Ceftriaxone Sodium (Ceftriaxone Sodium 1 Gm Vial) 1 gm IVPUSH Q24H [facility] Last Admin: 05/31/25 14:59 Dose: 1 gm Duloxetine HCl (Duloxetine Hcl 60 Mg Capsule.Dr) 60 mg PO BID [facility] Last Admin: 05/31/25 08:47 Dose: 60 mg Enoxaparin Sodium (Enoxaparin Sodium 40 Mg/0.4 Ml Syringe) 40 mg SUBCUT Q24H [facility] Last Admin: 05/31/25 08:47 Dose: 40 mg Fluticasone/Umeclidinium/Vilanterol (Fluticasone/Umeclidinium/Vilanterol 100/62.5/25 Blst.W.Dev) 1 puff INHALE RDAILY [facility] Last Admin: 05/31/25 07:46 Dose: 1 puff Azithromycin 500 mg/ Sodium (Chloride) 250 mls @ 125 mls/hr IV Q24H [facility] Last Infusion: 05/31/25 02:07 Dose: Infused Remdesivir 100 mg/ Sodium (Chloride) 230 mls @ 115 mls/hr IV Q24H [facility] Stop: 06/03/25 15:59 Last Admin: 05/31/25 14:59 Dose: 115 mls/hr Lamotrigine (Lamotrigine 100 Mg Tablet) 200 mg PO BEDTIME [facility] Last Admin: 05/30/25 22:05 Dose: 200 mg Magnesium Hydroxide (Milk Of Magnesia 30 Ml Oral.Susp) 30 ml PO DAILY PRN PRN Reason: Constipation Melatonin (Melatonin 3 Mg Tablet) 6 mg PO BEDTIME PRN PRN Reason: Insomnia Last Admin: 05/30/25 00:24 Dose: 6 mg Methylprednisolone Sodium Succinate (Methylprednisolone Sod Succ 40 Mg/Ml Vial) 40 mg IVPUSH Q8H [facility] Last Admin: 05/31/25 15:09 Dose: 40 mg Mirabegron (Mirabegron 25 Mg Tab.Er.24h) 25 mg PO DAILY [facility] Last Admin: 05/31/25 08:48 Dose: 25 mg Omeprazole (Omeprazole 40 Mg Capsule.Dr) 40 mg PO DAILY@0630 [facility] Last Admin: 05/31/25 06:22 Dose: 40 mg Quetiapine Fumarate (Quetiapine Fumarate 25 Mg Tablet) 25 mg PO BEDTIME [facility] Last Admin: 05/30/25 22:05 Dose: 25 mg Sodium Chloride (0.9 % Sodium Chloride Flush 3 Ml Syringe) 3 ml IVFLUSH QSHIFT [facility] Last Admin: 05/31/25 14:59 Dose: 3 ml Zolpidem Tartrate (Zolpidem Tartrate 5 Mg Tablet) 5 mg PO BEDTIME PRN PRN Reason: Sleep Home Medications ?Medication ?Instructions ?Recorded ?Confirmed ?Last Taken ?Type duloxetine 60 mg capsule,delayed 60 mg PO BID 09/01/21 05/30/25 05/29/25 History release sprinkle lamotrigine 200 mg tablet 200 mg PO BEDTIME 09/01/21 05/30/25 05/29/25 History ibuprofen 800 mg tablet 800 mg PO TID PRN Pain 02/14/22 05/30/25 02/14/24 History quetiapine 25 mg tablet 25 mg PO BEDTIME 02/14/22 05/30/25 05/29/25 History omeprazole 40 mg capsule,delayed 40 mg PO DAILY@0600 07/03/22 05/30/25 05/29/25 History release mirabegron 25 mg tablet,extended 25 mg PO DAILY 02/15/24 05/30/25 05/29/25 History release 24 hr (Myrbetriq) albuterol sulfate 90 mcg/actuation 2 puff inhalation Q4H PRN 05/30/25 05/30/25 Unknown History aerosol inhaler Shortness Of Breath Or Wheezing fluticasone fur. 100 mcg-umeclid 1 ea inhalation DAILY 05/30/25 05/30/25 05/29/25 History 62.5 mcg-vilant 25 mcg inhalat.powder (Trelegy Ellipta) zolpidem 5 mg tablet 5 mg PO BEDTIME PRN Sleep 05/30/25 05/30/25 Unknown History Physical Exam Vital Signs: Vital Signs: Last Vital Signs Temp 98.4 F 05/31/25 15:36 Pulse 104 H 05/31/25 15:36 Resp 24 H 05/31/25 15:36 BP 138/71 05/31/25 15:36 Pulse Ox 92 05/31/25 15:36 O2 Del Method Nasal Cannula 05/31/25 15:36 O2 Flow Rate 4 05/31/25 15:36 BMI result Body Mass Index 43.0 Const: General: cooperative HEENT: Head: Yes normal to inspection Face and sinus: Yes normal facial exam Mouth: Normal oral and palatal mucosa present Teeth and gingiva: dentition normal Eyes: General: appearance normal, both eyes and all related structures Pupils: Equal, round and reactive pupils present Resp: Effort & Inspection: abnormal respiratory pattern Cardio: Rate: regular rate Rhythm: regular rhythm GI: Palpation (GI): Soft to palpation and nontender : General: Yes no CVA tenderness Back/Spine/Pelvis: Back: no CVA tenderness Skin: General skin exam: no rashes or lesions noted Neuro: General: moves all extremities Cranial nerves: Yes Equal, round and reactive pupils present Extrem: General: Yes normal to inspection Psych: Appearance: grossly normal Results Labs 05/31/25 06:28 05/31/25 06:28 Labs: Short CBC 05/31/25 Range/Units 06:28 WBC 12.7 H (4.8-10.8) X10*3/uL Hgb 10.9 L (12.0-16.0) g/dl Hct 37.8 (37.0-47.0) % Plt Count 290 (160-400) X10*3/uL BMP 05/31/25 06:28 Sodium 144 Potassium 4.9 Chloride 104 Carbon Dioxide 31 H BUN 18 H Creatinine 0.65 Calcium 9.1 Microbiology Microbiology Results: Microbiology 05/29/25 15:12 Blood - Venous Blood Culture - Preliminary No growth after 24 hours. 05/29/25 15:03 Blood - Venous Blood Culture - Preliminary No growth after 24 hours. Assessment and Plan (1) Hypoxia: Status: Acute (2) Pneumonia: Status: Acute Plan COVID and no lobar infiltrate and low procalcitonin. Would continue steroids and Remdesivir. Stop antibiotics. Prognosis guarded.
[2025-05-31 18:16] LABS: ABG HCO3 34 mmol/L (22-26); ABG O2 % Saturation 93.0 %
[2025-05-31 23:32] LABS: ABG Refer to POC result
[2025-06-01] VITALS (13 sets, daily range): BP systolic 134–164; BP diastolic 75–91; PULSE 89–130; RESP 12–24; TEMP 36.2–36.8; O2SAT 79–95
[2025-06-01] MEDS: Fluticasone/Umeclidinium/Vilanterol 100/62.5/25 BLST.W.DEV 1 PUFF INHALE (07:45)
[2025-06-01] MEDS: Albuterol/Iprat 2.5/0.5MG 3 ML AMPUL.NEB INHALE ×4 (07:46→19:49)
[2025-06-01] MEDS: 0.9 % Sodium Chloride Flush 3 ML SYRINGE IVFLUSH ×3 (09:31→21:40)
--- NOTE | 2025-06-01 10:31 | P.PNIM_ITS ---
Subjective Subjective Date of Service: 06/01/25 Interval History: c/o dry cough, dyspnea, wheezing Review of Systems Review of Systems: Yes all other systems are reviewed and are negative Physical Exam 2 Vital Signs: Vital Signs: Last Vital Signs Temp 98.3 F 06/01/25 07:42 Pulse 89 06/01/25 07:47 Resp 18 06/01/25 07:47 BP 144/76 H 06/01/25 07:42 Pulse Ox 94 06/01/25 07:42 O2 Del Method Nasal Cannula 06/01/25 10:26 O2 Flow Rate 4 06/01/25 07:42 BMI result Body Mass Index 43.0 Gen: in no acute distress, mild resp distress HEENT: sclera anicteric, moist mucus membranes Neck: supple Lungs: diminished, diffuse inspiratory rhonchi and expiratory wheezing Heart: regular rate and rhythm, no murmurs Abd: soft, non-tender, non-distended, obese Ext: no edema Skin: warm/well-perfused Neuro: alert and oriented x3, no focal findings Psych: appropriate affect Objective Data Active Medications Acetaminophen (Acetaminophen 325 Mg Tablet) 975 mg PO Q6H PRN PRN Reason: Pain, Mild 1-3,fever,headache Last Admin: 05/30/25 09:13 Dose: 975 mg Documented By: NAFISA Albuterol Sulfate (Albuterol Sulfate (0.083%) 2.5 Mg/3 Ml Vial.Neb) 2.5 mg INHALE Q2H PRN PRN Reason: Shortness of Breath/Wheezing Albuterol/Ipratropium (Albuterol/Iprat 2.5/0.5mg 3 Ml Ampul.Neb) 3 ml INHALE RQ4H WHILE AWAKE [facility] Last Admin: 06/01/25 07:46 Dose: 3 ml Documented By: DANIEL Amlodipine Besylate (Amlodipine Besylate 5 Mg Tablet) 5 mg PO DAILY [facility]; Protocol Last Admin: 06/01/25 09:32 Dose: 5 mg Documented By: TWYLA Calcium Carbonate (Calcium Carbonate 750 Mg Tab.Chew) 750 mg PO Q4H PRN PRN Reason: Heartburn Duloxetine HCl (Duloxetine Hcl 60 Mg Capsule.Dr) 60 mg PO BID [facility] Last Admin: 06/01/25 09:32 Dose: 60 mg Documented By: TWYLA Enoxaparin Sodium (Enoxaparin Sodium 40 Mg/0.4 Ml Syringe) 40 mg SUBCUT Q24H [facility] Last Admin: 06/01/25 09:31 Dose: 40 mg Documented By: TWYLA Fluticasone/Umeclidinium/Vilanterol (Fluticasone/Umeclidinium/Vilanterol 100/62.5/25 Blst.W.Dev) 1 puff INHALE RDAILY [facility] Last Admin: 06/01/25 07:45 Dose: 1 puff Documented By: DANIEL Remdesivir 100 mg/ Sodium (Chloride) 230 mls @ 115 mls/hr IV Q24H [facility] Stop: 06/03/25 15:59 Last Infusion: 05/31/25 19:56 Dose: Infused Documented By: TAMMY Lamotrigine (Lamotrigine 100 Mg Tablet) 200 mg PO BEDTIME [facility] Last Admin: 05/31/25 20:30 Dose: 200 mg Documented By: TAMMY Magnesium Hydroxide (Milk Of Magnesia 30 Ml Oral.Susp) 30 ml PO DAILY PRN PRN Reason: Constipation Melatonin (Melatonin 3 Mg Tablet) 6 mg PO BEDTIME PRN PRN Reason: Insomnia Last Admin: 05/30/25 00:24 Dose: 6 mg Documented By: REGAN Methylprednisolone Sodium Succinate (Methylprednisolone Sod Succ 40 Mg/Ml Vial) 40 mg IVPUSH Q8H [facility] Last Admin: 06/01/25 09:31 Dose: 40 mg Documented By: TWYLA Mirabegron (Mirabegron 25 Mg Tab.Er.24h) 25 mg PO DAILY [facility] Last Admin: 06/01/25 09:32 Dose: 25 mg Documented By: TWYLA Morphine Sulfate (Morphine Sulfate 2 Mg/Ml Cartridge) 2 mg IVPUSH Q4H PRN; Protocol PRN Reason: dyspna or severe pain Last Admin: 05/31/25 18:15 Dose: 2 mg Documented By: TWYLA Omeprazole (Omeprazole 40 Mg Capsule.Dr) 40 mg PO DAILY@0630 [facility] Last Admin: 06/01/25 06:04 Dose: 40 mg Documented By: TAMMY Quetiapine Fumarate (Quetiapine Fumarate 25 Mg Tablet) 25 mg PO BEDTIME [facility] Last Admin: 05/31/25 20:30 Dose: 25 mg Documented By: TAMMY Sodium Chloride (0.9 % Sodium Chloride Flush 3 Ml Syringe) 3 ml IVFLUSH QSHIFT [facility] Last Admin: 06/01/25 09:31 Dose: 3 ml Documented By: TWYLA Zolpidem Tartrate (Zolpidem Tartrate 5 Mg Tablet) 5 mg PO BEDTIME PRN PRN Reason: Sleep Last Admin: 05/31/25 20:31 Dose: 5 mg Documented By: TAMMY Labs 05/31/25 06:28 05/31/25 06:28 Labs: Laboratory Results - last 24 hr 05/31/25 18:13 O2 Saturation 93.0 ABG pH at Pt Temp 7.40 ABG pCO2 at Pt Temp 54 H ABG pO2 at Pt Temp 68 L ABG HCO3 34 H ABG Base Excess (Actual) 8.0 Microbiology Microbiology Results: Microbiology 05/29/25 15:03 Blood Culture - Preliminary Blood - Venous Prelim: GNR Gram Stain only 05/29/25 15:12 Blood Culture - Preliminary Blood - Venous No growth after 48 hours. Assessment and Plan (1) COVID-19: Status: Acute Assessment and Plan: d4, 64yo F with obesity, COPD on home O2 2L, tobacco abuse, HTN, bipolar disorder presenting with 1 wk of dyspnea/cough, found to have acute/chronic resp acidosis, hypoxia, pneumonia and Covid-19 infection acute/chronic hypoxic/hypercapneic resp failure due to COPD exacerbation due to Covid-19 infection - goal SaO2 90-92, nocturnal BiPAP - remdesivir 05/30-06/03, methylprednisolone 05/29- [decrease from 40mg q8h to q0mg q12h today], nebs - CT angio to r/o PE negative - will need outpt PSG and Pulm f/u [does not have patternmaker plaster and plastic] GNR bacteremia - ceftriaxone, increase from 1 to 2 g/d, follow speciation/susceptibilities WILDA - supplement HTN - amlodipine bipolar disorder - duloxetine, lamotrigine, quetiapine tobacco abuse - NRT VTE ppx - enoxaparin morbid obesity - diet/exercise counseling dispo - PT eval prior to discharge In my clinical judgment, the patient requires continued inpatient hospitalization for the following reasons: resp failure, bacteremia Total time managing care of this patient today: 45 minutes. Quality Stroke Does the patient have a stroke diagnosis?: No VTE Prior VTE?: No VTE Risk Level:: Medical - moderate - high VTE Device Contraindication: Treatment Not Indicated VTE Drug Contraindication: N/A - Med Ordered
[2025-06-01] MEDS: Remdesivir 100 MG in 0.9 % Sodium Chloride 230 ML 115 MG IV (13:09)
[2025-06-02] VITALS (13 sets, daily range): BP systolic 125–166; BP diastolic 60–92; PULSE 87–111; RESP 12–24; TEMP 36.1–36.6; O2SAT 88–96
[2025-06-02] MEDS: Albuterol/Iprat 2.5/0.5MG 3 ML AMPUL.NEB INHALE ×4 (08:07→19:50)
[2025-06-02] MEDS: Fluticasone/Umeclidinium/Vilanterol 100/62.5/25 BLST.W.DEV 1 PUFF INHALE (08:08)
--- NOTE | 2025-06-02 08:33 | PC.RT ---
pt does not weat bipap at home band never has. she only wear oxygen at night. she only wore bipap for 5 hours last night and refused on and off the night prior. therefore order will be dc'd per policy
[2025-06-02] MEDS: Ferrous Sulfate 324 MG TABLET.DR PO (09:52)
[2025-06-02] MEDS: 0.9 % Sodium Chloride Flush 3 ML SYRINGE IVFLUSH ×3 (09:52→21:18)
--- NOTE | 2025-06-02 14:04 | P.PNIM_ITS ---
Subjective Subjective Date of Service: 06/02/25 Interval History: No acute issues overnight. Sats drop with movement. Still requires O2 via mask Review of Systems Denies chest pain Admits shortness of breath with minimal exertion Denies nausea vomiting diarrhea Denies fever chills Physical Exam 2 Vital Signs: Vital Signs: Last Vital Signs Temp 97.8 F 06/02/25 12:00 Pulse 104 H 06/02/25 12:00 Resp 20 06/02/25 12:00 BP 146/84 H 06/02/25 12:00 Pulse Ox 91 L 06/02/25 12:00 O2 Del Method Oxymask 06/02/25 12:00 O2 Flow Rate 3 06/02/25 12:00 BMI result Body Mass Index 43.0 Const: Other: Awake alert no acute distress Resp: Other: Diminished throughout with scattered coarse expiratory wheezes Cardio: Other: No S4; positive S1-S2; no S3 murmurs rubs or gallops GI: Other: Soft nontender nondistended normoactive bowel sounds Extrem: Other: No edema bilaterally Objective Data Active Medications Acetaminophen (Acetaminophen 325 Mg Tablet) 975 mg PO Q6H PRN PRN Reason: Pain, Mild 1-3,fever,headache Last Admin: 05/30/25 09:13 Dose: 975 mg Documented By: DOUGOPEFunmilayo Albuterol Sulfate (Albuterol Sulfate (0.083%) 2.5 Mg/3 Ml Vial.Neb) 2.5 mg INHALE Q2H PRN PRN Reason: Shortness of Breath/Wheezing Albuterol/Ipratropium (Albuterol/Iprat 2.5/0.5mg 3 Ml Ampul.Neb) 3 ml INHALE RQ4H WHILE AWAKE [facility] Last Admin: 06/02/25 11:33 Dose: 3 ml Documented By: HOMERO Amlodipine Besylate (Amlodipine Besylate 5 Mg Tablet) 5 mg PO DAILY [facility]; Protocol Last Admin: 06/02/25 09:55 Dose: 5 mg Documented By: IVANAORRFantasma Calcium Carbonate (Calcium Carbonate 750 Mg Tab.Chew) 750 mg PO Q4H PRN PRN Reason: Heartburn Ceftriaxone Sodium (Ceftriaxone Sodium 2 Gm Vial) 2 gm IVPUSH Q24H [facility] Last Admin: 06/02/25 11:41 Dose: 2 gm Documented By: KRUNAL Duloxetine HCl (Duloxetine Hcl 60 Mg Capsule.) 60 mg PO BID [facility] Last Admin: 06/02/25 09:52 Dose: 60 mg Documented By: GEOFFREY Enoxaparin Sodium (Enoxaparin Sodium 40 Mg/0.4 Ml Syringe) 40 mg SUBCUT Q24H [facility] Last Admin: 06/02/25 09:52 Dose: 40 mg Documented By: GEOFFREY Ferrous Sulfate (Ferrous Sulfate 324 Mg Tablet.) 324 mg PO DAILY [facility] Last Admin: 06/02/25 09:52 Dose: 324 mg Documented By: GEOFFREY Fluticasone/Umeclidinium/Vilanterol (Fluticasone/Umeclidinium/Vilanterol 100/62.5 Blst.W.Dev) 1 puff INHALE RDAILY [facility] Last Admin: 06/02/25 08:08 Dose: 1 puff Documented By: HOMERO Remdesivir 100 mg/ Sodium (Chloride) 230 mls @ 115 mls/hr IV Q24H [facility] Stop: 06/03/25 15:59 Last Infusion: 06/01/25 16:11 Dose: Infused Documented By: TWYLA Lamotrigine (Lamotrigine 100 Mg Tablet) 200 mg PO BEDTIME [facility] Last Admin: 06/01/25 21:38 Dose: 200 mg Documented By: TAMMY Magnesium Hydroxide (Milk Of Magnesia 30 Ml Oral.Susp) 30 ml PO DAILY PRN PRN Reason: Constipation Melatonin (Melatonin 3 Mg Tablet) 6 mg PO BEDTIME PRN PRN Reason: Insomnia Last Admin: 05/30/25 00:24 Dose: 6 mg Documented By: REGAN Methylprednisolone Sodium Succinate (Methylprednisolone Sod Succ 125 Mg/2 Ml Vial) 60 mg IVPUSH Q8H [facility] Last Admin: 06/02/25 12:29 Dose: 60 mg Documented By: KRUNAL Mirabegron (Mirabegron 25 Mg Tab.Er.24h) 25 mg PO DAILY [facility] Last Admin: 06/02/25 11:41 Dose: 25 mg Documented By: KRUNAL Morphine Sulfate (Morphine Sulfate 2 Mg/Ml Cartridge) 2 mg IVPUSH Q4H PRN; Protocol PRN Reason: dyspna or severe pain Last Admin: 06/01/25 21:39 Dose: 2 mg Documented By: TAMMY Omeprazole (Omeprazole 40 Mg Capsule.) 40 mg PO DAILY@0630 [facility] Last Admin: 06/02/25 05:27 Dose: 40 mg Documented By: TAMMY Quetiapine Fumarate (Quetiapine Fumarate 25 Mg Tablet) 25 mg PO BEDTIME [facility] Last Admin: 06/01/25 21:38 Dose: 25 mg Documented By: TAMMY Sodium Chloride (0.9 % Sodium Chloride Flush 3 Ml Syringe) 3 ml IVFLUSH QSHIFT [facility] Last Admin: 06/02/25 09:52 Dose: 3 ml Documented By: CTORRZ Zolpidem Tartrate (Zolpidem Tartrate 5 Mg Tablet) 5 mg PO BEDTIME PRN PRN Reason: Sleep Last Admin: 06/02/25 00:13 Dose: 5 mg Documented By: TAMMY Labs 05/31/25 06:28 05/31/25 06:28 Microbiology Microbiology Results: Microbiology 05/29/25 15:03 Blood Culture - Preliminary Blood - Venous Prelim: GNR Gram Stain only Assessment and Plan (1) COVID-19: Status: Acute Assessment and Plan: 64yo F with obesity, COPD on home O2 2L, tobacco abuse, HTN, bipolar disorder presenting with 1 wk of dyspnea/cough, found to have acute/chronic resp acidosis, hypoxia, pneumonia and Covid-19 infection 1.Acute/chronic hypoxic/hypercapneic resp failure due to COPD exacerbation due to Covid-19 infection - titrate O2 to maintain sats greater than or equal to 92%; nocturnal BiPAP - remdesivir 05/30-06/03 -increase methylprednisolone to 60 mg q.6 hours - CT angio to r/o PE negative 2.GNR bacteremia - ceftriaxone, increase from 1 to 2 g/d (2) 3.HTN -acceptable control on current therapies -adjust as indicated 4.Bipolar disorder -stable and well compensated VTE ppx - enoxaparin dispo - PT eval prior to discharge In my clinical judgment, the patient requires continued inpatient hospitalization for the following reasons: resp failure, bacteremia (2) Acute and chronic respiratory failure, unspecified whether with hypoxia or hypercapnia: Status: Acute Quality Stroke Does the patient have a stroke diagnosis?: No VTE Prior VTE?: No VTE Risk Level:: Medical - moderate - high VTE Device Contraindication: Treatment Not Indicated VTE Drug Contraindication: N/A - Med Ordered
[2025-06-02] MEDS: Remdesivir 100 MG in 0.9 % Sodium Chloride 230 ML 115 MG IV (15:30)
--- NOTE | 2025-06-02 15:58 | MHC.CM.PN ---
EMR reviewed and per MD rounds, pt is not medically cleared for discharge due to management of COPD exacerbation/Covid-19 infection.
[2025-06-03] VITALS (10 sets, daily range): BP systolic 127–155; BP diastolic 70–88; PULSE 90–135; RESP 15–20; TEMP 36.2–36.9; O2SAT 77–98
[2025-06-03 07:32] LABS: MANUAL DIFF FLAG NO
[2025-06-03 07:35] LABS: Hematocrit 41.4 % (37.0-47.0); Hemoglobin 12.2 g/dl (12.0-16.0); Imm Gran Abs Auto 0.08 X10*3/uL (0.00-0.03); Imm Gran Pct Auto 1.1 % (0.0-0.4); Lymphocytes Absolute Auto 0.7 X10*3/uL (1.2-4.9); Mean Corpuscular HGB Conc 29.5 g/dl (31.0-35.0); Mean Corpuscular Hemoglobin 20.7 pg (27.0-33.0); Mean Corpuscular Volume 70.3 fL (80.0-98.0); NRBC Abs Auto 0.000 X10*3/uL (0.0-0.012); NRBC Pct Auto 0.0 /100WBC (0.0-0.2); Platelet Count 279 X10*3/uL (160-400); Red Blood Count 5.89 X10*6/uL (4.20-5.50); White Blood Count 7.6 X10*3/uL (4.8-10.8)
[2025-06-03 07:45] LABS: VBG HCO3 36 mmol/L (22-26); VBG O2 % Saturation 85.0 %
[2025-06-03 07:47] LABS: Venous Blood Gas Refer to POC result
[2025-06-03 07:53] LABS: Alanine Aminotransferase 18 U/L (0-31); Albumin Level 4.2 g/dL (3.5-5.0); Alkaline Phosphatase 62 U/L (39-117); Anion Gap 11 (12-20); Aspartate Amino Transferase 17 U/L (5-31); Blood Urea Nitrogen 22 mg/dL (9-16); Calcium 9.2 mg/dL (8.4-10.2); Carbon Dioxide 34 mmol/L (22-29); Chloride 103 mmol/L (96-108); Creatinine Clr Calc Pharmacy 96.3; Estimated Glomerular Filt Rate > 60; Potassium 4.9 mmol/L (3.3-5.1); Sodium 143 mmol/L (135-145); Total Protein 6.7 g/dL (6.5-8.0)
[2025-06-03] MEDS: Albuterol/Iprat 2.5/0.5MG 3 ML AMPUL.NEB INHALE ×4 (08:15→19:52)
[2025-06-03] MEDS: Fluticasone/Umeclidinium/Vilanterol 100/62.5/25 BLST.W.DEV 1 PUFF INHALE (08:15)
[2025-06-03] MEDS: 0.9 % Sodium Chloride Flush 3 ML SYRINGE IVFLUSH ×2 (08:49→17:34)
[2025-06-03] MEDS: Ferrous Sulfate 324 MG TABLET.DR PO (08:51)
--- NOTE | 2025-06-03 15:15 | P.PNIM_ITS ---
Subjective Subjective Date of Service: 06/03/25 Interval History: Slow to improve. No acute issues otherwise Review of Systems Denies chest pain Admits shortness of breath with minimal exertion Denies nausea vomiting diarrhea Denies fever chills Physical Exam 2 Vital Signs: Vital Signs: Last Vital Signs Temp 98.0 F 06/03/25 12:00 Pulse 112 H 06/03/25 12:00 Resp 20 06/03/25 12:00 BP 127/81 06/03/25 12:00 Pulse Ox 92 06/03/25 12:00 O2 Del Method Nasal Cannula 06/03/25 12:00 O2 Flow Rate 3 06/03/25 12:00 BMI result Body Mass Index 43.0 Const: Other: Awake alert no acute distress Resp: Other: Diminished throughout with scattered coarse expiratory wheezes Cardio: Other: No S4; positive S1-S2; no S3 murmurs rubs or gallops GI: Other: Soft nontender nondistended normoactive bowel sounds Extrem: Other: No edema bilaterally Objective Data Active Medications Acetaminophen (Acetaminophen 325 Mg Tablet) 975 mg PO Q6H PRN PRN Reason: Pain, Mild 1-3,fever,headache Last Admin: 05/30/25 09:13 Dose: 975 mg Documented By: DOUGOPEFunmilayo Albuterol Sulfate (Albuterol Sulfate (0.083%) 2.5 Mg/3 Ml Vial.Neb) 2.5 mg INHALE Q2H PRN PRN Reason: Shortness of Breath/Wheezing Albuterol/Ipratropium (Albuterol/Iprat 2.5/0.5mg 3 Ml Ampul.Neb) 3 ml INHALE RQ4H WHILE AWAKE [facility] Last Admin: 06/03/25 11:35 Dose: 3 ml Documented By: MAX Amlodipine Besylate (Amlodipine Besylate 5 Mg Tablet) 5 mg PO DAILY [facility]; Protocol Last Admin: 06/03/25 08:50 Dose: 5 mg Documented By: AGUILAR Calcium Carbonate (Calcium Carbonate 750 Mg Tab.Chew) 750 mg PO Q4H PRN PRN Reason: Heartburn Ceftriaxone Sodium (Ceftriaxone Sodium 2 Gm Vial) 2 gm IVPUSH Q24H [facility] Last Admin: 06/03/25 12:16 Dose: 2 gm Documented By: AGUILAR Duloxetine HCl (Duloxetine Hcl 60 Mg Capsule.Dr) 60 mg PO BID [facility] Last Admin: 06/03/25 08:50 Dose: 60 mg Documented By: AGUILAR Enoxaparin Sodium (Enoxaparin Sodium 40 Mg/0.4 Ml Syringe) 40 mg SUBCUT Q12H [facility] Last Admin: 06/03/25 08:54 Dose: 40 mg Documented By: AGUILAR Ferrous Sulfate (Ferrous Sulfate 324 Mg Tablet.) 324 mg PO DAILY [facility] Last Admin: 06/03/25 08:51 Dose: 324 mg Documented By: AGUILAR Fluticasone/Umeclidinium/Vilanterol (Fluticasone/Umeclidinium/Vilanterol 100/62.5/ Blst.W.Dev) 1 puff INHALE RDAILY [facility] Last Admin: 06/03/25 08:15 Dose: 1 puff Documented By: JOSE CARLOS Remdesivir 100 mg/ Sodium (Chloride) 230 mls @ 115 mls/hr IV Q24H [facility] Stop: 06/03/25 15:59 Last Infusion: 06/02/25 17:50 Dose: Infused Documented By: GEOFFREY Lamotrigine (Lamotrigine 100 Mg Tablet) 200 mg PO BEDTIME [facility] Last Admin: 06/02/25 21:18 Dose: 200 mg Documented By: MARA Magnesium Hydroxide (Milk Of Magnesia 30 Ml Oral.Susp) 30 ml PO DAILY PRN PRN Reason: Constipation Melatonin (Melatonin 3 Mg Tablet) 6 mg PO BEDTIME PRN PRN Reason: Insomnia Last Admin: 05/30/25 00:24 Dose: 6 mg Documented By: REGAN Methylprednisolone Sodium Succinate (Methylprednisolone Sod Succ 125 Mg/2 Ml Vial) 60 mg IVPUSH Q8H [facility] Last Admin: 06/03/25 12:10 Dose: 60 mg Documented By: AGUILAR Mirabegron (Mirabegron 25 Mg Tab.Er.24h) 25 mg PO DAILY [facility] Last Admin: 06/03/25 08:50 Dose: 25 mg Documented By: AGUILAR Morphine Sulfate (Morphine Sulfate 2 Mg/Ml Cartridge) 2 mg IVPUSH Q4H PRN; Protocol PRN Reason: dyspna or severe pain Last Admin: 06/02/25 16:57 Dose: 2 mg Documented By: GEOFFREY Omeprazole (Omeprazole 40 Mg Capsule.) 40 mg PO DAILY@0630 [facility] Last Admin: 06/03/25 05:10 Dose: 40 mg Documented By: MARA Quetiapine Fumarate (Quetiapine Fumarate 25 Mg Tablet) 25 mg PO BEDTIME [facility] Last Admin: 06/02/25 21:18 Dose: 25 mg Documented By: MARA Sodium Chloride (0.9 % Sodium Chloride Flush 3 Ml Syringe) 3 ml IVFLUSH QSHIFT [facility] Last Admin: 06/03/25 08:49 Dose: 3 ml Documented By: AGUILAR Zolpidem Tartrate (Zolpidem Tartrate 5 Mg Tablet) 5 mg PO BEDTIME PRN PRN Reason: Sleep Last Admin: 06/02/25 22:45 Dose: 5 mg Documented By: MARA Labs 06/03/25 07:25 06/03/25 07:25 Labs: Laboratory Results - last 24 hr 06/03/25 06/03/25 07:25 07:36 MCV 70.3 L MCH 20.7 L MCHC 29.5 L RDW 17.9 H Plt Count 279 MPV 9.5 Immature Gran % (Auto) 1.1 H Neut % (Auto) 84.6 H Lymph % (Auto) 8.7 L [place] % (Auto) 5.3 Eos % (Auto) 0.0 Baso % (Auto) 0.3 Lymph # (Auto) 0.7 L [place] # (Auto) 0.4 Eos # (Auto) 0.0 Baso # (Auto) 0.0 Abs Immat Gran (auto) 0.08 H Absolute Neuts (auto) 6.4 Absolute Nucleated RBC 0.000 Nucleated RBC % (auto) 0.0 VBG pH 7.41 VBG pCO2 56 VBG pO2 59 VBG HCO3 36 H VBG O2 Saturation 85.0 VBG Base Excess 9.6 Anion Gap 11 L Estim Creat Clear Calc 96.3 Estimated GFR > 60 Fasting Glucose 131 H Calcium 9.2 Total Bilirubin 0.4 AST 17 ALT 18 Alkaline Phosphatase 62 Total Protein 6.7 Albumin 4.2 Microbiology Microbiology Results: Microbiology 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 Assessment and Plan (1) COVID-19: Status: Acute Assessment and Plan: 64yo F with obesity, COPD on home O2 2L, tobacco abuse, HTN, bipolar disorder presenting with 1 wk of dyspnea/cough, found to have acute/chronic resp acidosis, hypoxia, pneumonia and Covid-19 infection 1.Acute/chronic hypoxic/hypercapneic resp failure due to COPD exacerbation due to Covid-19 infection - titrate O2 to maintain sats greater than or equal to 92%; nocturnal BiPAP - remdesivir completed today -increase methylprednisolone to 60 mg q.6 hours - CT angio to r/o PE negative 2.GNR bacteremia - ceftriaxone, increase from 1 to 2 g/d (3) 3.HTN -acceptable control on current therapies -adjust as indicated 4.Bipolar disorder -stable and well compensated VTE ppx - enoxaparin dispo - PT eval prior to discharge In my clinical judgment, the patient requires continued inpatient hospitalization for the following reasons: resp failure, bacteremia (2) COPD exacerbation: Status: Acute Quality Stroke Does the patient have a stroke diagnosis?: No VTE Prior VTE?: No VTE Risk Level:: Medical - moderate - high VTE Device Contraindication: Treatment Not Indicated VTE Drug Contraindication: N/A - Med Ordered
[2025-06-03] MEDS: Remdesivir 100 MG in 0.9 % Sodium Chloride 230 ML 115 MG IV (15:19)
[2025-06-04] VITALS (11 sets, daily range): BP systolic 127–169; BP diastolic 66–85; PULSE 90–111; RESP 17–20; TEMP 36.2–37.2; O2SAT 88–99
[2025-06-04] MEDS: 0.9 % Sodium Chloride Flush 3 ML SYRINGE IVFLUSH ×4 (03:50→21:16)
[2025-06-04 06:40] LABS: MANUAL DIFF FLAG NO
[2025-06-04 06:43] LABS: Hematocrit 39.6 % (37.0-47.0); Hemoglobin 12.0 g/dl (12.0-16.0); Imm Gran Abs Auto 0.12 X10*3/uL (0.00-0.03); Imm Gran Pct Auto 1.4 % (0.0-0.4); Lymphocytes Absolute Auto 0.6 X10*3/uL (1.2-4.9); Mean Corpuscular HGB Conc 30.3 g/dl (31.0-35.0); Mean Corpuscular Hemoglobin 20.8 pg (27.0-33.0); Mean Corpuscular Volume 68.5 fL (80.0-98.0); NRBC Abs Auto 0.000 X10*3/uL (0.0-0.012); NRBC Pct Auto 0.0 /100WBC (0.0-0.2); Platelet Count 287 X10*3/uL (160-400); Red Blood Count 5.78 X10*6/uL (4.20-5.50); White Blood Count 8.9 X10*3/uL (4.8-10.8)
[2025-06-04 06:56] LABS: Alanine Aminotransferase 25 U/L (0-31); Albumin Level 4.2 g/dL (3.5-5.0); Alkaline Phosphatase 58 U/L (39-117); Anion Gap 11 (12-20); Aspartate Amino Transferase 19 U/L (5-31); Blood Urea Nitrogen 21 mg/dL (9-16); Calcium 9.0 mg/dL (8.4-10.2); Carbon Dioxide 33 mmol/L (22-29); Chloride 104 mmol/L (96-108); Creatinine Clr Calc Pharmacy 89.5; Estimated Glomerular Filt Rate > 60; Potassium 4.9 mmol/L (3.3-5.1); Sodium 143 mmol/L (135-145); Total Protein 6.6 g/dL (6.5-8.0)
[2025-06-04] MEDS: Fluticasone/Umeclidinium/Vilanterol 100/62.5/25 BLST.W.DEV 1 PUFF INHALE (08:13)
[2025-06-04] MEDS: Albuterol/Iprat 2.5/0.5MG 3 ML AMPUL.NEB INHALE ×4 (08:13→20:42)
[2025-06-04] MEDS: Ferrous Sulfate 324 MG TABLET.DR PO (08:42)
--- NOTE | 2025-06-04 12:45 | P.PNIM_ITS ---
Subjective Subjective Date of Service: 06/04/25 Interval History: breathing improved but desaturates to 80 with ambulation declines IPR/STR Review of Systems Review of Systems: Yes all other systems are reviewed and are negative Physical Exam 2 Vital Signs: Vital Signs: Last Vital Signs Temp 97.2 F 06/04/25 11:54 Pulse 107 H 06/04/25 11:54 Resp 20 06/04/25 11:54 BP 127/81 06/04/25 11:54 Pulse Ox 90 L 06/04/25 11:54 O2 Del Method Nasal Cannula 06/04/25 11:54 O2 Flow Rate 3 06/04/25 11:54 BMI result Body Mass Index 43.0 Gen: in no acute distress HEENT: sclera anicteric, moist mucus membranes Neck: supple Lungs: diminished throughout Heart: regular rate and rhythm, no murmurs Abd: soft, non-tender, non-distended, obese Ext: no edema Skin: warm/well-perfused Neuro: alert and oriented x3, no focal findings Psych: appropriate affect Objective Data Active Medications Acetaminophen (Acetaminophen 325 Mg Tablet) 975 mg PO Q6H PRN PRN Reason: Pain, Mild 1-3,fever,headache Last Admin: 05/30/25 09:13 Dose: 975 mg Documented By: NAFISA Albuterol Sulfate (Albuterol Sulfate (0.083%) 2.5 Mg/3 Ml Vial.Neb) 2.5 mg INHALE Q2H PRN PRN Reason: Shortness of Breath/Wheezing Albuterol/Ipratropium (Albuterol/Iprat 2.5/0.5mg 3 Ml Ampul.Neb) 3 ml INHALE RQ4H WHILE AWAKE [facility] Last Admin: 06/04/25 11:46 Dose: 3 ml Documented By: JOSE CARLOS Amlodipine Besylate (Amlodipine Besylate 5 Mg Tablet) 5 mg PO DAILY [facility]; Protocol Last Admin: 06/04/25 08:42 Dose: 5 mg Documented By: AGUILAR Calcium Carbonate (Calcium Carbonate 750 Mg Tab.Chew) 750 mg PO Q4H PRN PRN Reason: Heartburn Ceftriaxone Sodium (Ceftriaxone Sodium 2 Gm Vial) 2 gm IVPUSH Q24H JAHAIRA Last Admin: 06/04/25 11:30 Dose: 2 gm Documented By: AGUILAR Duloxetine HCl (Duloxetine Hcl 60 Mg Capsule.) 60 mg PO BID [facility] Last Admin: 06/04/25 08:42 Dose: 60 mg Documented By: AGUILAR Enoxaparin Sodium (Enoxaparin Sodium 40 Mg/0.4 Ml Syringe) 40 mg SUBCUT Q12H [facility] Last Admin: 06/04/25 08:41 Dose: 40 mg Documented By: AGUILAR Ferrous Sulfate (Ferrous Sulfate 324 Mg Tablet.) 324 mg PO DAILY [facility] Last Admin: 06/04/25 08:42 Dose: 324 mg Documented By: AGUILAR Fluticasone/Umeclidinium/Vilanterol (Fluticasone/Umeclidinium/Vilanterol 100/.02/14 Blst.W.Dev) 1 puff INHALE RDAILY [facility] Last Admin: 06/04/25 08:13 Dose: 1 puff Documented By: JOSE CARLOS Lamotrigine (Lamotrigine 100 Mg Tablet) 200 mg PO BEDTIME [facility] Last Admin: 06/03/25 19:54 Dose: 200 mg Documented By: RADHA Magnesium Hydroxide (Milk Of Magnesia 30 Ml Oral.Susp) 30 ml PO DAILY PRN PRN Reason: Constipation Melatonin (Melatonin 3 Mg Tablet) 6 mg PO BEDTIME PRN PRN Reason: Insomnia Last Admin: 05/30/25 00:24 Dose: 6 mg Documented By: REGAN Methylprednisolone Sodium Succinate (Methylprednisolone Sod Succ 125 Mg/2 Ml Vial) 60 mg IVPUSH Q8H [facility] Last Admin: 06/04/25 11:28 Dose: 60 mg Documented By: AGUILAR Metronidazole (Metronidazole 500 Mg Tablet) 500 mg PO Q8H [facility] Mirabegron (Mirabegron 25 Mg Tab.Er.24h) 25 mg PO DAILY [facility] Last Admin: 06/04/25 08:42 Dose: 25 mg Documented By: AGUILAR Morphine Sulfate (Morphine Sulfate 2 Mg/Ml Cartridge) 2 mg IVPUSH Q4H PRN; Protocol PRN Reason: dyspna or severe pain Last Admin: 06/02/25 16:57 Dose: 2 mg Documented By: IVANAORRFantasma Omeprazole (Omeprazole 40 Mg Capsule.) 40 mg PO DAILY@0630 [facility] Last Admin: 06/04/25 03:48 Dose: 40 mg Documented By: RADHA Quetiapine Fumarate (Quetiapine Fumarate 25 Mg Tablet) 25 mg PO BEDTIME [facility] Last Admin: 06/03/25 19:55 Dose: 25 mg Documented By: RADHA Sodium Chloride (0.9 % Sodium Chloride Flush 3 Ml Syringe) 3 ml IVFLUSH QSHIFT [facility] Last Admin: 06/04/25 09:54 Dose: 3 ml Documented By: AGUILAR Zolpidem Tartrate (Zolpidem Tartrate 5 Mg Tablet) 5 mg PO BEDTIME PRN PRN Reason: Sleep Last Admin: 06/03/25 21:37 Dose: 5 mg Documented By: RADHA Labs 06/04/25 06:25 06/04/25 06:25 Labs: Laboratory Results - last 24 hr 06/04/25 06:25 MCV 68.5 L MCH 20.8 L MCHC 30.3 L RDW 17.0 H Plt Count 287 MPV 9.7 Immature Gran % (Auto) 1.4 H Neut % (Auto) 87.3 H Lymph % (Auto) 6.2 L [place] % (Auto) 5.0 Eos % (Auto) 0.0 Baso % (Auto) 0.1 Lymph # (Auto) 0.6 L [place] # (Auto) 0.4 Eos # (Auto) 0.0 Baso # (Auto) 0.0 Abs Immat Gran (auto) 0.12 H Absolute Neuts (auto) 7.8 Absolute Nucleated RBC 0.000 Nucleated RBC % (auto) 0.0 Anion Gap 11 L Estim Creat Clear Calc 89.5 Estimated GFR > 60 Fasting Glucose 130 H Calcium 9.0 Total Bilirubin 0.4 AST 19 ALT 25 Alkaline Phosphatase 58 Total Protein 6.6 Albumin 4.2 Microbiology Microbiology Results: Microbiology 05/29/25 15:12 Blood Culture - Final Blood - Venous No growth after 5 days. 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 Assessment and Plan (1) COVID-19: Status: Acute Assessment and Plan: d4, 64yo F with obesity, COPD on home O2 2L, tobacco abuse, HTN, bipolar disorder presenting with 1 wk of dyspnea/cough, found to have acute/chronic resp acidosis, hypoxia, pneumonia and Covid-19 infection acute/chronic hypoxic/hypercapneic resp failure due to COPD exacerbation due to Covid-19 infection - goal SaO2 90-92, nocturnal BiPAP - remdesivir 05/30-06/03, methylprednisolone 05/29- [decrease from 60mgg q8h to q40mg q12h today], nebs - CT angio to r/o PE negative - will need outpt PSG and Pulm f/u [does not have mortgage loan interviewer] Fusobacterium bacteremia - discussed with ID; ceftriaxone 06/01-06/15 [can complete with cefuroxime], metronidazole 06/04-06/15 WILDA - supplement HTN - amlodipine bipolar disorder - duloxetine, lamotrigine, quetiapine tobacco abuse - NRT VTE ppx - enoxaparin morbid obesity - diet/exercise counseling dispo - STR/IPR recommended but pt refusing In my clinical judgment, the patient requires continued inpatient hospitalization for the following reasons: resp failure, hypoxia (2) COPD exacerbation: Status: Acute Quality Stroke Does the patient have a stroke diagnosis?: No VTE Prior VTE?: No VTE Risk Level:: Medical - moderate - high VTE Device Contraindication: Treatment Not Indicated VTE Drug Contraindication: N/A - Med Ordered
--- NOTE | 2025-06-04 13:35 | MHC.CM.PN ---
CM met with pt. to discuss DCP, she said that she will not go to [facility], but does want services at home, she does not have a preference of VNA, referral in for [facility].
[2025-06-05 03:39] VITALS: BP 140/74; PULSE 99; RESP 18; TEMP 36.4; O2SAT 90
[2025-06-05 08:00] VITALS: BP 152/80; PULSE 86; RESP 19; TEMP 37.1; O2SAT 92
[2025-06-05] MEDS: Fluticasone/Umeclidinium/Vilanterol 100/62.5/25 BLST.W.DEV 1 PUFF INHALE (08:19)
[2025-06-05] MEDS: Albuterol/Iprat 2.5/0.5MG 3 ML AMPUL.NEB INHALE ×2 (08:19→11:48)
[2025-06-05 08:21] VITALS: PULSE 76; RESP 16; O2SAT 94
[2025-06-05] MEDS: Ferrous Sulfate 324 MG TABLET.DR PO (09:56)
[2025-06-05] MEDS: 0.9 % Sodium Chloride Flush 3 ML SYRINGE IVFLUSH (10:14)
--- NOTE | 2025-06-05 10:38 | W.MHC.F2F ---
Service Date Service Date: 06/05/25 Encounter Date of encounter: 06/05/25 Reasons for Services Signs and symptoms assessed: attach PT evaluations 05/31/25-06/04/25 Reason for group home: medication management, medication treatment and teach disease management Reason for physical therapy: home safety and mobility, therapeutic exercises, gait/transfer training, assess need for DME, ADL training and energy conservation MD Overseeing Care: Daljit Irby Homebound: Leaving the home is medically contraindicated at this time without the asist of a device and/or another person due th the listed conditions above and below. Reason homebound: shortness of breath with minimal effort and weakness related to hospital stay Certification: Based on the above findings, I certify that this patient is confined to the home and needs intermittent group home care, physical therapy and/or speech therapy, or continues to need occupational therapy. The patient is under my care, and I have initiated the establishment of the plan of care. The patient will be followed by a physician who will periodically review the plan of care. Time Spent With Patient Time: Total time managing care of this patient today ____ minutes.
--- NOTE | 2025-06-05 10:47 | PM.DS ---
DS: Providers Provider Date of Service: 06/05/25 Date of admission: 05/29/25 22:58 Date of discharge: 06/05/25 Primary care physician: Daljit Irby MD Consults: 05/29/25 23:49 Consult to Infectious Diseases Routine Consulting Provider: [facility] [place] [facility] Reason for consultation: COVID infection Has provider been notified: No 05/30/25 00:01 Consult to Pulmonology Routine Consulting Provider: [facility] [place] Pulmonology Services Reason for consultation: Hypoxic and hypercapnic respiratory failure Has provider been notified: No DS: Diagnosis Discharge Diagnosis (1) COVID-19: Status: Acute (2) COPD exacerbation: Status: Acute (3) Acute on chronic respiratory failure with hypoxia and hypercapnia: Status: Acute (4) Fusobacterium infection: Status: Acute (5) Bacteremia: Status: Acute (6) Morbid obesity: Status: Acute (7) Pneumonia: Status: Acute DS: Summary Hospital Course Hospital Course: From the history and physical by the admitting hospitalist, Cezar Hinson, 05/29/25: Lissette Sacnhes is a 64 years old woman with past medical history significant for COPD on home oxygen 2 L/min via nasal cannula, essential hypertension, ongoing tobacco smoking half a pack daily, bipolar disorder and morbid obesity presents to the emergency department complaining of shortness of breath in the last couple of days associated with wheezing and cough. Denied chest pain, fever, chills. She did not report any acute gastrointestinal or genitourinary symptoms. Denied edema to the lower extremities. She smoke 10 tobacco cigarettes per day. Denied alcohol abuse or illicit drug use. In the ED, she has a have found to have tachypnea, tachypnea and low O2 saturation 50%. Therapy with BiPAP was given. She is currently on 6 L/min supplemental oxygen via nasal cannula. ABG is remarkable for significant respiratory acidosis with a pH of 7.26 and pCO2 62. It also showed significant hypoxia 62. Most recent ABG showed pH of 7.31, pCO2 52, PO2 81, HC03 27% and saturation of 96%. Troponin is 4.5. There are no electrolyte imbalances. BUN is 10 and creatinine 0.72. LFTs are normal. CXR showed hazy right mid to lower lung pulmonary opacities may represent developing pneumonia or asymmetric pulmonary edema. ED tx: Albuterol 3 mL neb, normal saline 3 L IV bolus, ceftriaxone 1 g IV, magnesium 2 g IV, Solu-Medrol 125 mg IV 64yo F with obesity, COPD on home O2 2L, tobacco abuse, HTN, bipolar disorder presenting with 1 wk of dyspnea/cough, found to have acute/chronic respiratory acidosis, hypoxia, pneumonia, Covid-19 infection, and Fusobacterium bacteremia. He was admitted to the telemetry unit and treated with 5 days of remdesivir and [address] angiogram was negative for PE. Oxygen was gradually weaned, as was nocturnal BiPAP. She was found to have Fusobacterium bacteremia and treated with ceftriaxone and metronidazole per ID consultation. She was seen by PT and inpatient pulmonary short-term rehabilitation was recommended; however, she declined. She was discharged home with VNA services and should continue 2L O2 at all times. She was prescribed a prednisone taper and should take 10 more days of cefuroxime and metronidazole. She was referred to Pulmonology. She was also prescribed iron for anemia. Time Attestation Discharge Coordination Time (in mins): 45 Quality: Safe Use of Opioids Does Pt have an Active Cancer Diagnosis on the Problem List?: No Quality: Stroke Does the patient have a stroke diagnosis?: No Physical Exam Vital Signs: Vital Signs: Last Vital Signs Temp 98.8 F 06/05/25 08:00 Pulse 76 06/05/25 08:21 Resp 16 06/05/25 08:21 BP 152/80 H 06/05/25 08:00 Pulse Ox 92 06/05/25 08:00 O2 Del Method Nasal Cannula 06/05/25 08:00 O2 Flow Rate 2 06/05/25 08:00 BMI result Body Mass Index 43.0 Gen: in no acute distress HEENT: sclera anicteric, moist mucus membranes Neck: supple Lungs: diminished throughout Heart: regular rate and rhythm, no murmurs Abd: soft, non-tender, non-distended, obese Ext: no edema Skin: warm/well-perfused Neuro: alert and oriented x3, no focal findings Psych: appropriate affect DS: Data Data Completed and Pending Completed studies during hospitalization [Text1]: Laboratory Results WBC 8.9 X10*3/uL (4.8-10.8) 06/04/25 06:25 RBC 5.78 X10*6/uL (4.20-5.50) H 06/04/25 06:25 Hgb 12.0 g/dl (12.0-16.0) 06/04/25 06:25 Hct 39.6 % (37.0-47.0) 06/04/25 06:25 MCV 68.5 fL (80.0-98.0) L 06/04/25 06:25 MCH 20.8 pg (27.0-33.0) L 06/04/25 06:25 MCHC 30.3 g/dl (31.0-35.0) L 06/04/25 06:25 RDW 17.0 % (11.0-16.0) H 06/04/25 06:25 Plt Count 287 X10*3/uL (160-400) 06/04/25: MPV 9.7 fL (9.4-12.3) 06/04/25: Immature Gran % (Auto) 1.4 % (0.0-0.4) H 06/04/25: Neut % (Auto) 87.3 % (45-73) H 06/04/25 06:25 Lymph % (Auto) 6.2 % (20-40) L 06/04/25 06:25 [place] % (Auto) 5.0 % (2-11) 06/04/25: Eos % (Auto) 0.0 % (0-4) 06/04/25:25 Baso % (Auto) 0.1 % (0-2) 06/04/25:25 Lymph # (Auto) 0.6 X10*3/uL (1.2-4.9) L 06/04/25 06:25 [place] # (Auto) 0.4 X10*3/uL (0.1-1.2) 06/04/25 06:25 Eos # (Auto) 0.0 X10*3/uL (0.0-0.4) 06/04/25:25 Baso # (Auto) 0.0 X10*3/uL (0.0-0.2) 06/04/25 06:25 Abs Immat Gran (auto) 0.12 X10*3/uL (0.00-0.03) H 06/04/25 06:25 Absolute Neuts (auto) 7.8 x10*3/uL (2.0-8.3) 06/04/25 06:25 Absolute Nucleated RBC 0.000 X10*3/uL (0.0-0.012) 06/04/25 06:25 Nucleated RBC % (auto) 0.0 /100WBC (0.0-0.2) 06/04/25 06:25 Absolute Retic 0.164 X10*6/uL (0.026-0.095) H 05/30/25 04:21 Percent Retic 3.3 % (0.5-1.8) H 05/30/25 04:21 Immature Retic Fraction 24.1 % (3.0-15.9) H 05/30/25 04:21 Retic Hgb Equivalent 20.4 pg (30.0-35.0) L 05/30/25 04:21 Hold Purple Top SEE NOTE 05/29/25 17:38 Hold Purple Top SEE NOTE 05/29/25 17:38 D-Dimer High Sensitivty 183 NG/ML 05/29/25 17:38 O2 Saturation 93.0 % 05/31/25 18:13 ABG pH at Pt Temp 7.40 (7.35-7.45) 05/31/25 18:13 ABG pCO2 at Pt Temp 54 mmHg (32-45) H 05/31/25 18:13 ABG pO2 at Pt Temp 68 mmHg (83-108) L 05/31/25 18:13 ABG HCO3 34 mmol/L (22-26) H 05/31/25 18:13 ABG Base Excess (Actual) 8.0 mmol/L 05/31/25 18:13 VBG pH 7.41 (7.32-7.43) 06/03/25 07:36 VBG pCO2 56 mmHg 06/03/25 07:36 VBG pO2 59 mmHg 06/03/25 07:36 VBG HCO3 36 mmol/L (22-26) H 06/03/25 07:36 VBG O2 Saturation 85.0 % 06/03/25 07:36 VBG Base Excess 9.6 mmol/L 06/03/25 07:36 Sodium 143 mmol/L (135-145) 06/04/25 06:25 Potassium 4.9 mmol/L (3.3-5.1) 06/04/25 06:25 Chloride 104 mmol/L (96-108) 06/04/25 06:25 Carbon Dioxide 33 mmol/L (22-29) H 06/04/25 06:25 Anion Gap 11 (12-20) L 06/04/25 06:25 BUN 21 mg/dL (9-16) H 06/04/25 06:25 Creatinine 0.71 mg/dL (0.5-1.4) 06/04/25 06:25 Estim Creat Clear Calc 89.5 06/04/25 06:25 Estimated GFR > 60 06/04/25 06:25 Random Glucose 143 mg/dL (60-115) H 05/31/25 06:28 Fasting Glucose 130 mg/dL (60-99) H 06/04/25 06:25 Lactic Acid 0.8 mmol/L (0.5-2.0) 05/29/25 15:03 Calcium 9.0 mg/dL (8.4-10.2) 06/04/25 06:25 Magnesium 2.5 mg/dL (1.6-2.6) 05/29/25 17:38 Iron 25 mcg/dL (30-160) L 05/30/25 04:21 TIBC 272 mcg/dL (228-428) 05/30/25 04:21 % Saturation 9 % (15-50) L 05/30/25 04:21 Unsat Iron Binding 247 ug/dL 05/30/25 04:21 Ferritin 133 ng/mL (10-250) 05/30/25 04:21 Total Bilirubin 0.4 mg/dL (0.0-1.0) 06/04/25 06:25 AST 19 U/L (5-31) 06/04/25 06:25 ALT 25 U/L (0-31) 06/04/25 06:25 Alkaline Phosphatase 58 U/L (39-117) 06/04/25 06:25 Troponin I High Sens 4.5 ng/L (<3.5-17.0) 05/29/25 17:38 C-Reactive Protein 1.79 mg/dL (< or = 0.50) H 05/30/25 04:21 B-Natriuretic Peptide 91 pg/mL (<100) 05/30/25 00:42 Total Protein 6.6 g/dL (6.5-8.0) 06/04/25 06:25 Albumin 4.2 g/dL (3.5-5.0) 06/04/25 06:25 Vitamin B12 412 pg/mL (200-900) 05/30/25 04:21 Folate 9.7 ng/mL (> or = 4.0) 05/30/25 04:21 Procalcitonin 0.04 ng/mL 05/30/25 04:21 Urine Color Yellow 05/29/25 17:00 Urine Appearance Clear 05/29/25 17:00 Urine pH 6.0 (5.0-9.0) 05/29/25 17:00 Ur Specific [place] <= 1.005 (1.005-1.025) 05/29/25 17:00 Urine Protein Negative mg/dL (Neg-Trace) 05/29/25 17:00 Urine Glucose (UA) Negative mg/dL (Negative) 05/29/25 17:00 Urine Ketones Negative mg/dL (Negative) 05/29/25 17:00 Urine Blood Trace (Negative) H 05/29/25 17:00 Urine Nitrite Negative (Negative) 05/29/25 17:00 Ur Leukocyte Esterase Negative (Negative) 05/29/25 17:00 Urine RBC 0-2 /HPF (0-2) 05/29/25 17:00 Urine WBC 0-5 /HPF (0-5) 05/29/25 17:00 Ur Squamous Epith Cells 0-2 /HPF (0-2) 05/29/25 17:00 Urine Bacteria None Seen (None Seen) 05/29/25 17:00 Hyaline Casts 0-2 /LPF (0-2) 05/29/25 17:00 COVID-19 (YULISSA) Positive (Negative) A 05/29/25 15:03 COVID-19 Clin Com See Note 05/29/25 15:03 Influenza Type A (EVIE) Negative (Negative) 05/29/25 15:03 Influenza Type B (EVIE) Negative (Negative) 05/29/25 15:03 Influenza A & B Note See Note 05/29/25 15:03 Impressions Chest CTA 05/31/25 11:43 IMPRESSION: No evidence of pulmonary emboli. Multifocal pulmonary scarring. Electronically signed by: Bib Walker MD 05/31/2025 12:25 PM EDT RP Discharge Plan Discharge Anticipated Discharge Date/Time: 06/05/25 10:40 Patient Disposition: Home Health Service Discharge Diagnosis: COPD exacerbation due to Covid-19 infection Fusobacterium bacteremia anemia Referrals: [facility] [place] Pulmonology Services [Provider Group, Pulmonology] - 1 Week Daljit Irby MD [Primary Care Provider, Internal Medicine] - 1 Week Discharge Medications: New metronidazole 500 mg Tablet 500 mg PO Q8H Qty: 30 0RF cefuroxime axetil 500 mg tablet 500 mg PO BID Qty: 20 0RF prednisone 10 mg tablet 10 mg PO DIRECTED Qty: 40 0RF Rx Instructions: 40 mg daily x 4 days, then 30 mg daily x 4 days, then 20 mg daily x 4 days, then 10 mg daily x 4 days ferrous sulfate 324 mg (65 mg iron) Tablet,Delayed Release (Dr/Ec) 324 mg PO DAILY Qty: 30 0RF Continued lamotrigine 200 mg Tablet 200 mg PO BEDTIME duloxetine 60 mg Capsule, Delayed Rel Sprinkle 60 mg PO BID quetiapine 25 mg tablet 25 mg PO BEDTIME omeprazole 40 mg capsule,delayed release(DR/EC) 40 mg PO DAILY@0600 Rx Instructions: After 8 weeks to take it daily mirabegron [Myrbetriq] 25 mg tablet extended release 24 hr 25 mg PO DAILY amlodipine 5 mg Tablet 5 mg PO DAILY Qty: 90 0RF Protocol: Hold for SBP< HOLD for SBP < : 90 albuterol sulfate 2.5 mg /3 mL (0.083 %) solution for nebulization 2.5 mg inhalation QID PRN (Reason: Shortness Of Breath Or Wheezing) Qty: 180 1RF zolpidem 5 mg tablet 5 mg PO BEDTIME PRN (Reason: Sleep) Trelegy Ellipta 100-62.5-25 mcg blister with device 1 ea inhalation DAILY albuterol sulfate 90 mcg/actuation HFA aerosol inhaler 2 puff inhalation Q4H PRN (Reason: Shortness Of Breath Or Wheezing) Discontinued ibuprofen 800 mg tablet 800 mg PO TID PRN (Reason: Pain) Discharge Orders: Discharge Order (Routine); Ordered 06/05/25 Ordered By: Maureen Benton Diet: Low salt diet Activity on Discharge: As tolerated Stand Alone Forms: Patient Portal Discharge page Print Language: Setswana Care Plan Goals: respiratory health Health Concerns: COPD exacerbation due to Covid-19 infection Fusobacterium bacteremia anemia Plan of Treatment: prednisone 10 mg tabs, taper as follows: 40 mg (4 tabs) daily x 4 days, then 30 mg (3 tabs) daily x 4 days, then 20 mg (2 tabs) daily x 4 days, then 10 mg (1 tab) daily x 4 days referral to pulmonology at [facility] [place] oxygen 2L at all times take cefuroxime 500 mg twice daily PLUS metronidazole 500 mg three times a day, total 10 days make appointment with dentist take ferrous sulfate 324 mg once daily Please follow up with your primary care doctor within 1 week. Return to the hospital if you experience recurrent or worsening symptoms. Assessment: See Discharge Summary.
[2025-06-05 11:12] VITALS: BP 134/81; PULSE 107; RESP 18; TEMP 36.4; O2SAT 93
--- NOTE | 2025-06-05 11:40 | MHC.CM.PN ---
Addendum entered by Soledad Bowling 06/05/25 13:55: NO VNAS ARE ABLE TO ACCEPT PT DUE TO INSURANCE / AVAILABILITY PT WILL DC HOME WITH [facility] FOR SN AND PT Addendum entered by Soledad Bowling 06/05/25 13:31: [facility] HAS RESPONDED, THEY ARE NOT CONTRACTED WITH PTS [employer] PLAN Addendum entered by Soledad Bowling 06/05/25 12:43: ARMOND AND JERONIMO ARE WORKING TO VERIFY INSURANCE CONTRACT. CM AWAITING A RESPOSNSE Original Note: PT REFUSING [facility], WILL NEED VNA, REFERRAL PLACED TO [facility], HOWEVER THEY HAVE A 10-14 DAY WAIT FOR PT SERVICES. [facility]NA REFERRAL BROADCASTED, PT IS MEDICALLY CLEARED FOR DC ONCE A VNA IS SECURED
[2025-06-05 11:49] VITALS: PULSE 103; RESP 20; O2SAT 95
== END 2025-06-05 15:32 | disposition home health service (06) | DRG 177 ==
LOC: HO.ED 17:51 → HO.EDOVER 23:01 → HO.IMC 05-30 19:21
PROVIDERS: Hospitalist; Physician Assistant; Admitting Provider Internal Medicine; Emergency Provider Emergency Medicine; PCP Internal Medicine; Visit Provider Family Medicine
DX: U07.1 COVID-19 (principal); J18.9 Pneumonia, unspecified organism; J96.21 Acute and chronic respiratory failure with hypoxia; J96.22 Acute and chronic respiratory failure with hypercapnia; J44.0 Chronic obstructive pulmonary disease with (acute) lower respiratory infection; J44.1 Chronic obstructive pulmonary disease with (acute) exacerbation; Z68.41 Body mass index [BMI] 40.0-44.9, adult; R78.81 Bacteremia; D50.9 Iron deficiency anemia, unspecified; G47.33 Obstructive sleep apnea (adult) (pediatric); B96.89 Other specified bacterial agents as the cause of diseases classified elsewhere; E66.01 Morbid (severe) obesity due to excess calories; Z71.3 Dietary counseling and surveillance; F31.9 Bipolar disorder, unspecified; Z99.81 Dependence on supplemental oxygen; F17.210 Nicotine dependence, cigarettes, uncomplicated; Z71.6 Tobacco abuse counseling; Z79.899 Other long term (current) drug therapy
CPT/HCPCS: 36415; 71045; 71250; 71275; 80048; 80053; 81001; 82607; 82728; 82746; 82803; 83540; 83605; 83735; 83880; 84145; 84484; 85025; 85027; 85045; 85379; 86140; 87040; 87076; 87185; 87205; 87502; 87635; 93005; 94640; 94660; 97116; 97161; 99285; J0248; J0456; J0696; J1650; J2270; J2919; J3475; Q9967

== ENCOUNTER → 2025-05-29 14:57 | Outpatient (BNV) | payer OTHER, SELFPAY | PROVIDERS: Admitting Provider Internal Medicine; Emergency Provider Emergency Medicine; PCP Internal Medicine; Visit Provider Internal Medicine Cardiovascular Disease | DX: R00.0 Tachycardia, unspecified (principal) | CPT/HCPCS: 93010 ==

== ENCOUNTER → 2025-05-29 14:57 | Outpatient (BNV) | payer OTHER, SELFPAY | PROVIDERS: Emergency Provider Emergency Medicine; Visit Provider Radiology Diagnostic Radiology | DX: R06.02 Shortness of breath (principal) | CPT/HCPCS: 71045 ==

== ENCOUNTER 2025-05-29 22:58 | Outpatient (BNV) | payer OTHER, SELFPAY | END 2025-05-30 00:02 | PROVIDERS: Admitting Provider Internal Medicine; Emergency Provider Emergency Medicine; PCP Internal Medicine; Visit Provider Radiology Diagnostic Radiology | DX: J98.11 Atelectasis (principal); R91.1 Solitary pulmonary nodule | CPT/HCPCS: 71250 ==

== ENCOUNTER 2025-05-29 22:58 | Outpatient (BNV) | payer OTHER, SELFPAY | END 2025-05-31 10:34 | PROVIDERS: Admitting Provider Internal Medicine; Emergency Provider Emergency Medicine; PCP Internal Medicine; Visit Provider Radiology Diagnostic Radiology | DX: J96.01 Acute respiratory failure with hypoxia (principal) | CPT/HCPCS: 71275 ==

== ENCOUNTER → 2025-05-29 22:58 | Outpatient (BNV) | payer OTHER, SELFPAY | PROVIDERS: Admitting Provider Internal Medicine; Emergency Provider Emergency Medicine; PCP Internal Medicine; Visit Provider Internal Medicine | DX: U07.1 COVID-19 (principal); J96.21 Acute and chronic respiratory failure with hypoxia; J96.22 Acute and chronic respiratory failure with hypercapnia | CPT/HCPCS: 99223; 99232 ==

== ENCOUNTER → 2025-05-29 22:58 | Outpatient (BNV) | payer OTHER, SELFPAY | PROVIDERS: Admitting Provider Internal Medicine; Emergency Provider Emergency Medicine; PCP Internal Medicine; Visit Provider Internal Medicine Pulmonary Disease | DX: J44.1 Chronic obstructive pulmonary disease with (acute) exacerbation (principal); J96.02 Acute respiratory failure with hypercapnia; U07.1 COVID-19 | CPT/HCPCS: 99222 ==

== ENCOUNTER → 2025-05-29 22:58 | Outpatient (BNV) | payer OTHER, SELFPAY | PROVIDERS: Admitting Provider Internal Medicine; Emergency Provider Emergency Medicine; PCP Internal Medicine; Visit Provider Internal Medicine | DX: R09.02 Hypoxemia (principal); J18.9 Pneumonia, unspecified organism | CPT/HCPCS: 99222 ==

== ENCOUNTER 2025-06-28 11:12 | Inpatient (IN) | payer OTHER, SELFPAY ==
[2025-06-28] VITALS (10 sets, daily range): BP systolic 118–140; BP diastolic 63–78; PULSE 99–123; RESP 17–92; TEMP 36.6–37.2; O2SAT 24–95; BMI 39.2
--- NOTE | ~2025-06-28 | XR_ITS ---
EXAMINATION: XR CHEST CLINICAL INFORMATION: COughing. hypoxia COMPARISON: 05/29/2025. 04/27/2025. TECHNIQUE: Frontal view of the chest was obtained. FINDINGS: The cardiac, hilar, and mediastinal contours are normal. Aortic mural calcification. Lungs demonstrate subtle patchy opacities in both bases. This is similar to the prior chest radiograph of 05/29/2025. The mid and upper lungs are well pneumatized. No pneumothorax or effusion. No focal osseous or soft tissue abnormality. XR/XR chest 1V IMPRESSION: There are subtle patchy opacities in both lower lungs. Findings could be infectious and/or inflammatory. Electronically signed by: Inder Mazariegos MD 06/28/2025 12:26 PM EDT
--- NOTE | ~2025-06-28 | CT_ITS ---
EXAMINATION: CT ANGIOGRAM CHEST CLINICAL INFORMATION: Shortness of breath COMPARISON: 05-31-25 TECHNIQUE: Multiple axial images were obtained through the chest after the administration of 65 mL of Omnipaque 350 intravenous contrast. Extensive vascular post-processing including two-dimensional and three-dimensional reformatted images were created and reviewed on an independent workstation. This CT examination was performed using dose optimization techniques as appropriate, variously including the following: *Automated exposure control *Adjustment of mA and/or kV according to patient size (this includes techniques or standardized protocols for targeted exams where dose is matched to indication/reason for exam; i.e. extremities or head) *Use of iterative reconstruction technique FINDINGS: QUALITY OF STUDY/CONTRAST BOLUS: Adequate PULMONARY ARTERIES: No filling defects were identified in the pulmonary arteries. THORACIC AORTA: No aneurysm or dissection. There is multifocal calcifications. LUNGS AND PLEURA: Patchy groundglass densities are noted in the lungs, increased from the prior. There is minimal linear atelectasis or scarring in the lung bases and medial segment right middle lobe and the anterior aspect of the lingula, slightly improved when compared to the prior MEDIASTINUM: Unremarkable CORONARY ARTERY CALCIFICATION: Present CHEST WALL/AXILLA: No axillary or internal mammary lymphadenopathy. UPPER ABDOMEN: Unremarkable BONES: Multilevel degenerative changes are present with vacuum phenomenon and sclerosis in the lower thoracic spine. There are anterior osteophytes. CT/CT angio chest PE protocol IMPRESSION: No filling defects were identified to suggest an underlying pulmonary embolus. Nonspecific vague groundglass densities are present in the lungs. Multilevel degenerative disc disease is present in the thoracic spine. Fleischner guidelines were followed. Electronically signed by: Dany Moreno MD 06/28/2025 01:11 PM EDT
--- NOTE | 2025-06-28 11:19 | ECG_ITS ---
Test Reason : SOB Blood Pressure : */* mmHG Vent. Rate : 116 BPM Atrial Rate : 116 BPM P-R Int : 152 ms QRS Dur : 74 ms QT Int : 314 ms P-R-T Axes : 36 24 53 degrees QTcB Int : 436 ms Sinus tachycardia Low voltage QRS Cannot rule out Anterior infarct (cited on or before 29-May-2025) Abnormal ECG When compared with ECG of 29-May-2025 14:58, Questionable change in initial forces of Septal leads Referred By: Felipe Quiñonez Electronically Signed By: RODGER DAHL MD
--- NOTE | 2025-06-28 11:24 | ED.GENADULT ---
HPI - General Adult General Chief complaint: Dyspnea Stated complaint: Cant breathe with oxygen Time Seen by Provider: 06/28/25 11:24 Source: patient Mode of arrival: ambulatory Limitations: no limitations History of Present Illness ED Provider: Dr. Collins HPI narrative: 64-year-old female history of neal respiratory failure on 2 L nasal cannula oxygen due to COPD presented hospital today for hypoxic respiratory failure. Patient was feeling short of breath for the past 2 days. She was prescribed doxycycline 2 days ago by her primary care doctor and placed on prednisone 40 mg daily by primary care doctor. Patient's where recently discharged 2 weeks ago due to COPD exacerbation. Patient was noted to be satting at triage at 77% on her home 2 L nasal cannula. Audible wheezing appreciated on exam. Related Data Home Medications ?Medication ?Instructions ?Recorded ?Confirmed duloxetine 60 mg capsule,delayed 60 mg PO BID 09/01/21 05/30/25 release sprinkle lamotrigine 200 mg tablet 200 mg PO BEDTIME 09/01/21 05/30/25 quetiapine 25 mg tablet 25 mg PO BEDTIME 02/14/22 05/30/25 omeprazole 40 mg capsule,delayed 40 mg PO DAILY@0600 07/03/22 05/30/25 release mirabegron 25 mg tablet,extended 25 mg PO DAILY 02/15/24 05/30/25 release 24 hr (Myrbetriq) albuterol sulfate 90 mcg/actuation 2 puff inhalation Q4H PRN 05/30/25 05/30/25 aerosol inhaler Shortness Of Breath Or Wheezing fluticasone fur. 100 mcg-umeclid 1 ea inhalation DAILY 05/30/25 05/30/25 62.5 mcg-vilant 25 mcg inhalat.powder (Trelegy Ellipta) zolpidem 5 mg tablet 5 mg PO BEDTIME PRN Sleep 05/30/25 05/30/25 Previous Rx's ?Medication ?Instructions ?Recorded albuterol sulfate 2.5 mg/3 mL 2.5 mg (3 mL) inhalation QID PRN 02/18/24 (0.083 %) solution for nebulization Shortness Of Breath Or Wheezing #180 mL amlodipine 5 mg tablet 5 mg PO DAILY #90 tabs 02/18/24 cefuroxime axetil 500 mg tablet 500 mg PO BID #20 tabs 06/05/25 ferrous sulfate 324 mg (65 mg 324 mg PO DAILY #30 tabs 06/05/25 iron) tablet,delayed release metronidazole 500 mg tablet 500 mg PO Q8H #30 tabs 06/05/25 prednisone 10 mg tablet 10 mg PO DIRECTED #40 tabs 06/05/25 Allergies Allergy/AdvReac Type Severity Reaction Status Date / Time No Known Allergies Allergy Verified 06/28/25 11:26 Review of Systems Review of Systems: Pertinent review of systems as mentioned in HPI. All other system otherwise negative. [facility] Past Medical History [facility] Narrative: Medical history as mentioned in HPI Medical History Mood disorder Tobacco use disorder Hx of head injury Anemia Panic anxiety syndrome Pelvic mass Anemia COPD (chronic obstructive pulmonary disease) Surgical History Hx of colonoscopy History of mandibular surgery H/O: hysterectomy Social History Social History Household Members: Friend(s) Housing: Apartment Do you presently have visiting nurse or other home services: No Alcohol intake: unknown Comment: low fall risk Patient Tobacco Use Status: Current everyday Tobacco user Tobacco use type: Cigarette Cigarette Packs Per Day: 1 Cigarettes Per Day: 10 Years Smoked: 40 Second Hand Smoke Exposure: Yes Substance Use Type: Marijuana Advance Directives: No Advance Directives Information Provided: Yes service: No Current occupational status: employed Current occupation: [employer]/ left hand dominant Physical Exam ED Exam Exam: General: Pleasant, no distress, interacting appropriately Head: Normacephalic, atraumatic ENT: oral mucosa moist, neck supple, no tracheal deviation Cardiovascular: Tachycardic rate, regular rhythm, no murmurs, rubbing, gallops Respiratory: Diminished lung sounds bilaterally with wheezing Gastrointestinal: Soft, non distended, non tender, non guarding Extremities: No limb pain or swelling, no calf tenderness Neurological: Awake and alert, no facial droop noted Skin: Warm and dry Psychiatric: Appropriate mood and thoughts Vital Signs: Vital Signs - 24 hr 06/28/25 11:18 06/28/25 11:29 06/28/25 12:46 Temperature 98.3 F Pulse Rate 123 H 123 H 99 Respiratory Rate 28 H 25 H 20 Blood Pressure 140/73 H Pulse Oximetry 77 L Oxygen Delivery Method Nasal Cannula Oxygen Flow Rate 06/28/25 13:25 Temperature 98.9 F Pulse Rate 112 H Respiratory Rate 22 H Blood Pressure 126/63 Pulse Oximetry 90 L Oxygen Delivery Method Oxygen Flow Rate 6 BMI result Body Mass Index 39.2 Medications Administered Discontinued Medications Generic Name Dose Route Start Last Admin Trade Name Freq PRN Reason Stop Dose Admin Albuterol Sulfate 2.5 mg/ 5 mg 06/28/25 12:45 06/28/25 12:50 Albuterol Sulfate 2.5 mg INHALE 06/28/25 12:46 5 mg ONCE ONE Administration Albuterol Sulfate 5 mg/ 0 mg 06/28/25 11:28 06/28/25 11:31 Albuterol/Ipratropium 3 ml INHALE 06/28/25 11:29 7.5 each ONCE ONE Administration Magnesium Sulfate 2 gm in 50 mls @ 150 mls/hr 06/28/25 11:19 06/28/25 12:19 Magnesium Sulfate/H2o IV 06/28/25 11:38 Infused ONCE ONE Infusion Iohexol 100 ml 06/28/25 12:32 06/28/25 12:33 Iohexol 350 Mg/Ml 100 Ml Infus..Btl IV 06/28/25 12:33 65 ml ONCE ONE Administration Methylprednisolone Sodium Succinate 125 mg 06/28/25 11:19 06/28/25 11:59 Methylprednisolone Sod Succ 125 Mg/2 Ml Vial IVPUSH 06/28/25 11:20 125 mg ONCE ONE Administration Medical Decision Making Medical Decision Making MDM Narrative: 64-year-old female history of COPD chronic respiratory failure on 2 L nasal cannula presented hospital today for evaluation of hypoxic respiratory failure. Breathing treatment will be provided the patient's here. Patient has a already taking 40 mg of prednisone today. We will hold off on it. IV magnesium will be initiated for the patient. Patient has been taking multiple nebulizer treatments at home without any alleviation or shortness of breath. At this time we will recent COVID infection we will evaluate for any signs of complication for COVID infection including a pulmonary embolism and pneumonia. CTA of the chest will be obtained. Oxygen has increased to 4 L/min via nasal cannula. Lab work has been ordered prior to my evaluation of the patient. Patient will be screened for possible sepsis versus infectious cause of her acute shortness of breath. This appears to be more like COPD exacerbation to me likely secondary to viral infection. Patient's chest x-ray shows possible bilateral lower lung opacity. We will plan to treat patient with IV vancomycin and IV Zosyn given her recent admission to the hospital for COPD exacerbation and coverage for pneumonia. Patient does not appear to be sepsis on evaluation. Her tachycardia is respiratory driven. Patient has received multiple breathing treatment. Without any alleviation of her hypoxia. She is requiring 5 L nasal cannula oxygen at this time. We will plan to admit patient for COPD exacerbation hypoxic respiratory failure. Differential Diagnosis Differential Diagnoses: The differential diagnosis associated with the presentation includes Pneumonia, COPD exacerbation, acute hypoxic respiratory failure Lab Data MDM Lab Attestation statement: I reviewed the patient's lab results. 06/28/25 11:44 06/28/25 11:44 Labs: Lab Results 06/28/25 06/28/25 Range/Units 11:44 12:40 WBC 11.3 H (4.8-10.8) X10*3/uL RBC 5.10 (4.20-5.50) X10*6/uL Hgb 10.6 L (12.0-16.0) g/dl Hct 35.0 L (37.0-47.0) % MCV 68.6 L (80.0-98.0) fL MCH 20.8 L (27.0-33.0) pg MCHC 30.3 L (31.0-35.0) g/dl RDW 16.2 H (11.0-16.0) % Plt Count 369 D (160-400) X10*3/uL MPV 9.2 L (9.4-12.3) fL Immature Gran % (Auto) 0.4 (0.0-0.4) % Neut % (Auto) 85.9 H (45-73) % Lymph % (Auto) 6.7 L (20-40) % [place] % (Auto) 6.6 (2-11) % Eos % (Auto) 0.2 (0-4) % Baso % (Auto) 0.2 (0-2) % Lymph # (Auto) 0.8 L (1.2-4.9) X10*3/uL [place] # (Auto) 0.8 (0.1-1.2) X10*3/uL Eos # (Auto) 0.0 (0.0-0.4) X10*3/uL Baso # (Auto) 0.0 (0.0-0.2) X10*3/uL Abs Immat Gran (auto) 0.05 H (0.00-0.03) X10*3/uL Absolute Neuts (auto) 9.7 H (2.0-8.3) x10*3/uL Absolute Nucleated RBC 0.000 (0.0-0.012) X10*3/uL Nucleated RBC % (auto) 0.0 (0.0-0.2) /100WBC Sodium 141 (135-145) mmol/L Potassium 3.5 D (3.3-5.1) mmol/L Chloride 104 (96-108) mmol/L Carbon Dioxide 32 H (22-29) mmol/L Anion Gap 9 L (12-20) BUN 16 (9-16) mg/dL Creatinine 0.91 (0.5-1.4) mg/dL Estim Creat Clear Calc 66.1 Estimated GFR > 60 Random Glucose 124 H (60-115) mg/dL Lactic Acid 1.2 (0.5-2.0) mmol/L Calcium 9.7 D (8.4-10.2) mg/dL Total Bilirubin 0.4 (0.0-1.0) mg/dL AST 19 (5-31) U/L ALT 17 (0-31) U/L Alkaline Phosphatase 66 (39-117) U/L Troponin I High Sens 3.5 (<3.5-17.0) ng/L NT-Pro-B Natriuret Pep 327.2 H (<300) pg/mL Total Protein 6.7 (6.5-8.0) g/dL Albumin 4.2 (3.5-5.0) g/dL COVID-19 (YULISSA) Negative (Negative) COVID-19 Clin Com See Note Influenza Type A (EVIE) Negative (Negative) Influenza Type B (EVIE) Negative (Negative) Influenza A & B Note See Note Independent Interpretation I performed an independent interpretation of an: Plain X-Ray and CT Scan Radiology Impression Discussion of test interpretation with radiology: I have reviewed the radiologist's reading. Chronic Conditions COPD, chronic respiratory failure Critical Care Time Critical Care Time Critical Care Time: Yes Total Critical Care Time: 40 Attestation: Time is exclusive of separately billable procedures. Time includes: direct patient care, patient reassessment, coordination of patient care, interpretation of data (laboratory data, pulse oximetry, arterial blood gases and chest xrays), review of patient's medical records, medical consultation and documentation of patient care. Procedures excluded from critical care time: central intravenous line placement and electrocardiography. Discharge Plan Discharge Clinical Impression: COPD (chronic obstructive pulmonary disease), Acute on chronic respiratory failure with hypoxia and hypercapnia Patient Disposition: Admitted As Inpatient Print Language: Irish
[2025-06-28] MEDS: Albuterol Sulfate 5 MG, Albuterol/Iprat 2.5/0.5MG 3 ML 3 ML INHALE (11:31)
[2025-06-28 11:52] LABS: Hematocrit 35.0 % (37.0-47.0); Hemoglobin 10.6 g/dl (12.0-16.0); Imm Gran Abs Auto 0.05 X10*3/uL (0.00-0.03); Imm Gran Pct Auto 0.4 % (0.0-0.4); Lymphocytes Absolute Auto 0.8 X10*3/uL (1.2-4.9); MANUAL DIFF FLAG NO; Mean Corpuscular HGB Conc 30.3 g/dl (31.0-35.0); Mean Corpuscular Hemoglobin 20.8 pg (27.0-33.0); Mean Corpuscular Volume 68.6 fL (80.0-98.0); NRBC Abs Auto 0.000 X10*3/uL (0.0-0.012); NRBC Pct Auto 0.0 /100WBC (0.0-0.2); Platelet Count 369 X10*3/uL (160-400); Red Blood Count 5.10 X10*6/uL (4.20-5.50); White Blood Count 11.3 X10*3/uL (4.8-10.8)
[2025-06-28] MEDS: Magnesium Sulfate/H2O 2 GM/50 ML PIGGYBACK IV (11:59)
[2025-06-28 12:14] LABS: Alanine Aminotransferase 17 U/L (0-31); Albumin Level 4.2 g/dL (3.5-5.0); Alkaline Phosphatase 66 U/L (39-117); Anion Gap 9 (12-20); Aspartate Amino Transferase 19 U/L (5-31); Blood Urea Nitrogen 16 mg/dL (9-16); Calcium 9.7 mg/dL (8.4-10.2); Carbon Dioxide 32 mmol/L (22-29); Chloride 104 mmol/L (96-108); Creatinine Clr Calc Pharmacy 66.1; Estimated Glomerular Filt Rate > 60; NT Pro B Type Natriuretic Pept 327.2 pg/mL (<300); Potassium 3.5 mmol/L (3.3-5.1); Sodium 141 mmol/L (135-145); Total Protein 6.7 g/dL (6.5-8.0); Troponin-I High Sensitivity 3.5 ng/L (<3.5-17.0)
[2025-06-28] MEDS: iohexoL 350 MG/ML 100 ML INFUS..BTL IV (12:33)
[2025-06-28] MEDS: Albuterol Sulfate 2.5 MG, Albuterol Sulfate (0.083%) 2.5 MG 5 MG INHALE (12:50)
[2025-06-28 13:02] LABS: IDNOW Serial# 58CA691E
[2025-06-28 13:03] LABS: COVID-19 Test Negative (Negative); IDNOW Serial# 55D5AD1C; Influenza B2 Negative (Negative)
--- NOTE | 2025-06-28 13:56 | PC.NURSE ---
Placed on [facility] for oxygen delivery. 6LPM via [facility]. Plan to admit, awaiting bed assignment & admission orders. Care ongoing by this RN.
--- NOTE | 2025-06-28 14:14 | PHA.MEDREC ---
Pharmacy Consult ? Medication Reconciliation Pharmacy has completed the medication reconciliation. Spoke with pt and she confirmed her medications. Pt started her Prednisone 10mg regimen and Doxycycline regimen 3 days ago; pt taking 4 tabs (40mg) of Prednisone until tomorrow and then switching to 3 tabs (30mg) daily for 4 days, then 2 tabs (20mg) for4 days then 1 tab (10mg) for 1 days and then stopping. Pt states she stopped the Ferrous sulfate; due to that making the pt constipated and Ibuprofen; pt told her to stop that.
[2025-06-28] MEDS: vancomycin/NS 2,000 MG/500 ML PLAST..BAG 250 MG IV (14:23)
--- NOTE | 2025-06-28 14:26 | PHA.MEDREC ---
Addendum entered by Berry Butts PharmD 06/28/25 14:40: reviewed Original Note: Pharmacy Consult ? Medication Reconciliation Pharmacy has completed the medication reconciliation. Spoke with pt and she confirmed she started her Prednisone 10mg taper and Doxycycline 1 BID regimen3 days ago; pt confirmed she is taking 4 tabs (40mg) for 1 more day of Prednisone, then she tapers down to 3 tabs (30mg) for 4 days then 2 tabs (20mg) for 4 days and then 1 tab (10mg) for 4 days then she stops that. Pt states she is not taking Ferrous Sulfate; it made pt constipated and her Dr told her to not take the Ibuprofen anymore. Pt confirmed she still takes Fuloxetine 60mg BID and gets it filled at [facility]; [facility] confirmed she has not filled that since 01/13 for 90 days.
--- NOTE | 2025-06-28 14:31 | PC.NURSE ---
Patient placed on High Flow by Respiratory Therapist (Inder). Tolerated well. Currently 92% on high flow. Care ongoing by this RN.
--- NOTE | 2025-06-28 15:36 | PM.IMHP ---
History of Present Illness Date of Service: 06/28/25 Attending physician on admission: Maureen Benton Chief Complaint: SOB Pt is a 64-year-old female with a PMH significant for?COPD on 2 L home O2, HTN, and bipolar disorder who presents to the ED with?increased SOB and nonproductive cough x4 days. Pt was recently hospitalized last month from 05/29-06/05 for acute on chronic respiratory acidosis, hypoxia, pneumonia, COVID-19 infection, and fusobacterium bacteremia. Pt was treated with 5 days of remdesivir and 7 days of methylprednisolone, and was seen and evaluated by ID who recommended treating with ceftriaxone and metronidazole while in the hospital and discharging home on cefuroxime and metronidazole x10 more days. PT recommended discharge to short-term rehab, but pt declined went home with VNA services. Reports took all of her home antibiotics as prescribed and overall did well and was soon able to return to work. Pt even reports has not had any cigarettes since discharge. Four days ago, however, pt woke up and found that she could not breathe. Called her PCP and was started on prednisone and doxycycline, as well as breathing treatments every 2 hours to little effect. Decided to come in today as symptoms continued to worsen. Denies fever or chills. No nausea, vomiting, or abdominal pain. In the ED pt's vitals were significant for tachycardia up to 123, tachypneic up to 28, and desatting to 77% on 2 L NC. Currently on high-flow. Labs were significant for leukocytosis 11.3 and slight bump in creatinine up to 0.91 (baseline 0.7), otherwise grossly unremarkable and around baseline for pt. Lactic acid WNL 1.2. MRSA swab pending. CXR showed bibasilar subtle patchy opacities concerning for infectious/inflammatory origin. CTA of chest negative for pulmonary embolus, but showed nonspecific vague ground-glass densities in both lungs. Pt was treated in the ED with DuoNebs, Solu-Medrol, Mag sulfate, vancomycin and Zosyn. Pt is admitted to the hospital for treatment and further evaluation of acute on chronic hypoxic respiratory failure in the setting of COPD exacerbation with concern for underlying hospital-acquired pneumonia with sepsis. Review of Systems Review of Systems: Yes all other systems are reviewed and are negative [facility] Medical History Mood disorder Tobacco use disorder Hx of head injury Anemia Panic anxiety syndrome Pelvic mass Anemia COPD (chronic obstructive pulmonary disease) Surgical History Hx of colonoscopy History of mandibular surgery H/O: hysterectomy Social History Household Members: Friend(s) Housing: Apartment Do you presently have visiting nurse or other home services: No Alcohol intake: unknown Comment: low fall risk Patient Tobacco Use Status: Current everyday Tobacco user Tobacco use type: Cigarette Cigarette Packs Per Day: 1 Cigarettes Per Day: 10 Years Smoked: 40 Smoked in Last 30 Days: Yes Second Hand Smoke Exposure: Yes Substance Use Type: Marijuana Advance Directives: No Advance Directives Information Provided: Yes Patient : No service: No Current occupational status: employed Current occupation: [employer]/ left hand dominant Meds Allergies Allergy/AdvReac Type Severity Reaction Status Date / Time No Known Allergies Allergy Verified 06/28/25 11:26 Active Medications: Current Medications Albuterol Sulfate (Albuterol Sulfate 90 Mcg 8 Gm Inhaler) 2 puff INHALE Q4H PRN PRN Reason: Shortness Of Breath Or Wheezing Amlodipine Besylate (Amlodipine Besylate 5 Mg Tablet) 5 mg PO DAILY [facility]; Protocol Duloxetine HCl (Duloxetine Hcl 30 Mg Capsule.Dr) 60 mg PO BID [facility] Piperacillin Sod/Tazobactam (Sod 3.375 gm/ Sodium Chloride) 50 mls @ 100 mls/hr IV Q6H [facility] Lamotrigine (Lamotrigine 100 Mg Tablet) 200 mg PO BEDTIME [facility] Mirabegron (Mirabegron 25 Mg Tab.Er.24h) 25 mg PO DAILY [facility] Omeprazole (Omeprazole 40 Mg Capsule.) 40 mg PO DAILY@0630 [facility] Pharmacy Consult (Consult Rx Vancomycin Dosing) 1 each MISCELLANE DAILY PRN PRN Reason: Consult order Quetiapine Fumarate (Quetiapine Fumarate 25 Mg Tablet) 25 mg PO BEDTIME [facility] Zolpidem Tartrate (Zolpidem Tartrate 5 Mg Tablet) 5 mg PO BEDTIME PRN PRN Reason: Sleep Home Medications ?Medication ?Instructions ?Recorded ?Confirmed ?Last Taken ?Type duloxetine 60 mg capsule,delayed 60 mg PO BID 09/01/21 06/28/25 06/28/25 History release sprinkle lamotrigine 200 mg tablet 200 mg PO BEDTIME 09/01/21 06/28/25 06/27/25 History quetiapine 25 mg tablet 25 mg PO BEDTIME 02/14/22 06/28/25 06/27/25 History omeprazole 40 mg capsule,delayed 40 mg PO DAILY@0630 07/03/22 06/28/25 06/28/25 History release mirabegron 25 mg tablet,extended 25 mg PO DAILY 02/15/24 06/28/25 06/28/25 History release 24 hr (Myrbetriq) albuterol sulfate 90 mcg/actuation 2 puff inhalation Q4H PRN 05/30/25 06/28/25 Unknown History aerosol inhaler Shortness Of Breath Or Wheezing fluticasone fur. 100 mcg-umeclid 1 ea inhalation DAILY 05/30/25 06/28/25 06/28/25 History 62.5 mcg-vilant 25 mcg inhalat.powder (Trelegy Ellipta) zolpidem 5 mg tablet 5 mg PO BEDTIME PRN Sleep 05/30/25 06/28/25 Unknown History doxycycline hyclate 100 mg tablet 100 mg PO BID 06/28/25 06/28/25 06/28/25 History prednisone 10 mg tablet See Taper PO DIRECTED 06/28/25 06/28/25 06/28/25 History Physical Exam Vital Signs and Narrative: Vital Signs: Last Vital Signs Temp 98.2 F 06/28/25 14:00 Pulse 105 H 06/28/25 14:00 Resp 18 06/28/25 14:22 BP 118/73 06/28/25 14:00 Pulse Ox 94 06/28/25 14:00 O2 Del Method High Flow Nasal C annula 06/28/25 14:00 O2 Flow Rate 50 06/28/25 14:00 FiO2 40.5 06/28/25 14:00 Oxygen Flow Rate 2 06/28/25 11:18 BMI result Body Mass Index 39.2 General: AOx3, no acute distress Resp: Diffuse expiratory wheezing. High-flow on. CVS: S1, S2, regular rhythm but tachycardic GI: +BS, NT, no distention Skin: Warm, dry Neuro: Cranial nerves II-XII grossly intact bilaterally. Motor grossly intact bilaterally Extremities: No edema Psych: Appropriate affect Results Labs 06/28/25 11:44 06/28/25 11:44 Labs: Laboratory Results - last 24 hr 06/28/25 06/28/25 11:44 12:40 MCV 68.6 L MCH 20.8 L MCHC 30.3 L RDW 16.2 H Plt Count 369 D MPV 9.2 L Immature Gran % (Auto) 0.4 Neut % (Auto) 85.9 H Lymph % (Auto) 6.7 L [place] % (Auto) 6.6 Eos % (Auto) 0.2 Baso % (Auto) 0.2 Lymph # (Auto) 0.8 L [place] # (Auto) 0.8 Eos # (Auto) 0.0 Baso # (Auto) 0.0 Abs Immat Gran (auto) 0.05 H Absolute Neuts (auto) 9.7 H Absolute Nucleated RBC 0.000 Nucleated RBC % (auto) 0.0 Anion Gap 9 L Estim Creat Clear Calc 66.1 Estimated GFR > 60 Random Glucose 124 H Lactic Acid 1.2 Calcium 9.7 D Total Bilirubin 0.4 AST 19 ALT 17 Alkaline Phosphatase 66 Troponin I High Sens 3.5 NT-Pro-B Natriuret Pep 327.2 H Total Protein 6.7 Albumin 4.2 COVID-19 (YULISSA) Negative COVID-19 Clin Com See Note Influenza Type A (EVIE) Negative Influenza Type B (EVIE) Negative Influenza A & B Note See Note Imaging Radiologist's Impressions: Impressions Chest X-Ray 06/28/25 11:56 IMPRESSION: There are subtle patchy opacities in both lower lungs. Findings could be infectious and/or inflammatory. Electronically signed by: Inder Mazariegos MD 06/28/2025 12:26 PM EDT RP Chest CTA 06/28/25 12:31 IMPRESSION: No filling defects were identified to suggest an underlying pulmonary embolus. Nonspecific vague groundglass densities are present in the lungs. Multilevel degenerative disc disease is present in the thoracic spine. Fleischner guidelines were followed. Electronically signed by: Dany Moreno MD 06/28/2025 01:11 PM EDT RP Assessment and Plan (1) COPD exacerbation: Status: Acute (2) Pneumonia: Status: Acute (3) Acute on chronic respiratory failure with hypoxia and hypercapnia: Status: Acute Plan Pt is a 64-year-old female with a PMH significant for?COPD on 2 L home O2, HTN, and bipolar disorder who presents to the ED with?increased SOB and nonproductive cough x4 days. Pt is admitted to the hospital for treatment and further evaluation of acute on chronic hypoxic respiratory failure in the setting of COPD exacerbation with concern for underlying hospital-acquired pneumonia with sepsis. Acute on chronic hypoxic respiratory failure in the setting of pneumonia with sepsis with severe features Concern for hospital-acquired pneumonia as pt hospitalized 05/29-06/05 Currently on high-flow Meets sepsis criteria with severe features with tachycardia and tachypnea and high-flow; lactic acid WNL, BP stable Will empirically treat with vanc and Zosyn, day 1 MRSA swab ID consult Titrate supplemental oxygen to >90 on home 2L NC Monitor respiratory status, follow cultures HTN Continue amlodipine Iron-deficiency anemia Iron supplementation Tobacco dependence Nicotine patch Obesity class 2 Recommend Disorder Continue duloxetine Full Code Attending:?Dr. Benton DVT Prophylaxis: Lovenox Pt will require a hospitalization of at least two nights for treatment of?acute on chronic hypoxic respiratory failure in the setting of pneumonia with sepsis with severe features. Given that pt is currently requiring high-flow and has concern for hospital-acquired pneumonia, pt will require hospital level care for administration of IV antibiotics, supplemental oxygen significantly above baseline, and close monitoring of respiratory status, all of which can not be performed in a lower acuity satting. Quality Stroke Does the patient have a stroke diagnosis?: No VTE Prior VTE?: No VTE Risk Level:: Medical - moderate - high VTE Device Contraindication: Treatment Not Indicated VTE Drug Contraindication: N/A - Med Ordered
--- NOTE | 2025-06-28 15:55 | PHA.PROG ---
Admission Date/Time: June 28, 2025 14:17 Indication: Respiratory Weight in k kg Adjusted body weight in Kg: [place] body weight in Kg: Obesity Dosing Indication % IBW: Serum Creatinine - Last 168 Hours 06/28/25 11:44 Creatinine 0.91 Estimated CrCl and GFR - Last 168 Hours 06/28/25 11:44 Estim Creat Clear Calc 66.1 Estimated GFR > 60 Vancomycin Loading Dose: 2000mg x 1 Current Vancomycin Dosing Regimen: 1000mg Q12H Vancomycin Monitoring using AUC goal of 400 - 600 range with trough as surrogate marker: 538 mg/L Date and Time for next Vancomycin Level to be drawn: 06/29 @2100 Pharmacist Comments on Vancomycin Plan: predicted trough of 17.8mg/L Vancomycin dosing will take advantage of [employer] as a clinical decision support tool that uses Bayesian modeling to calculate individual patient's pharmacokinetic parameters and forecast the patient's drug concentration time course with the target goal AUC 24 range of 400 - 600 mg/L/hr.
[2025-06-28 17:25] LABS: MRSA Nasal PCR NEGATIVE (Negative); SA Nasal PCR NEGATIVE (Negative)
--- NOTE | 2025-06-28 19:34 | PC.NURSE ---
this RN assumed care of this pt @1900, pt appears to be in no apparent distress at this time, medicated per NOV, given commode for bathroom use while in ED
[2025-06-28] MEDS: Albuterol/Iprat 2.5/0.5MG 3 ML AMPUL.NEB INHALE (19:38)
[2025-06-28] MEDS: Ferrous Sulfate 300 MG/5 ML LIQUID PO (20:02)
--- NOTE | 2025-06-28 22:54 | HO.NURTONUR ---
Addendum entered by Sanju Sow RN 06/28/25 23:03: 270mL/hr not 100 Original Note: pt has Vanco running at 100ml/hr to a 20g in the right forearm
[2025-06-28] MEDS: 0.9 % Sodium Chloride Flush 3 ML SYRINGE IVFLUSH (23:15)
[2025-06-29] VITALS (13 sets, daily range): BP systolic 108–146; BP diastolic 67–87; PULSE 94–111; RESP 12–22; TEMP 36.4–36.9; O2SAT 90–98; BMI 40.4
[2025-06-29 06:44] LABS: Hematocrit 34.2 % (37.0-47.0); Hemoglobin 10.2 g/dl (12.0-16.0); Mean Corpuscular HGB Conc 29.8 g/dl (31.0-35.0); Mean Corpuscular Hemoglobin 20.7 pg (27.0-33.0); Mean Corpuscular Volume 69.5 fL (80.0-98.0); NRBC Abs Auto 0.000 X10*3/uL (0.0-0.012); NRBC Pct Auto 0.0 /100WBC (0.0-0.2); Platelet Count 350 X10*3/uL (160-400); Red Blood Count 4.92 X10*6/uL (4.20-5.50); White Blood Count 7.5 X10*3/uL (4.8-10.8)
[2025-06-29 07:02] LABS: Anion Gap 11 (12-20); Blood Urea Nitrogen 17 mg/dL (9-16); Calcium 9.4 mg/dL (8.4-10.2); Carbon Dioxide 30 mmol/L (22-29); Chloride 106 mmol/L (96-108); Creatinine Clr Calc Pharmacy 83.9; Estimated Glomerular Filt Rate > 60; Potassium 4.2 mmol/L (3.3-5.1); Sodium 143 mmol/L (135-145)
[2025-06-29] MEDS: Albuterol/Iprat 2.5/0.5MG 3 ML AMPUL.NEB INHALE ×4 (07:34→20:02)
--- NOTE | 2025-06-29 07:43 | PC.NURSE ---
0600. Pt alert oriented and resting comfortably since arrival from ER. HF on 40L 40% maintaining O2 sats 94%. Expiratory wheezing audible but pt not demonstrating signs of distress. Pt able to get OOB to commode to urinate with out O2 sesaturations. HR slightly tachycardia with rate 100 beats per minutes. Denies CP or dizziness. IV antibiotics infused as ordered and patient tolerating treatment.
[2025-06-29] MEDS: Ferrous Sulfate 300 MG/5 ML LIQUID PO ×2 (08:26→17:33)
[2025-06-29] MEDS: 0.9 % Sodium Chloride Flush 3 ML SYRINGE IVFLUSH ×2 (08:27→15:17)
--- NOTE | 2025-06-29 09:49 | MHC.CM.PN ---
THIS CM MET WITH PT TO COMPLETE CM INTAKE ASSESSMENT. PT STATES SHE IS SELF-CARE, LIVES AT HOME WITH A ROOMMATE, AND HAS HOME O2 AT 2L VIA NC THROUGH [facility]. PT WILL ARRANGE HER OWN TRANSPORT HOME AT DISCHARGE. EDUCATION PROVIDED ON HCP, NEW HCP COMPLETED WITH PT, NOW ON FILE. DCP: RETURN HOME SELF-CARE WITH HOME O2/[facility], VIA SELF-ARRANGED TRANSPORT. PCP: DR. BLANKA KENNY
--- NOTE | 2025-06-29 18:40 | P.PNIM_ITS ---
Subjective Subjective Date of Service: 06/29/25 Interval History: Feeling better Continues with high-flow Still has cough, unable to expectorate anything No chest pain pressure Review of Systems Review of Systems: Yes all other systems are reviewed and are negative Physical Exam 2 Exam: Exam: General: AOx3, no acute distress Resp: Diffuse expiratory wheezing bilaterally. High-flow on. CVS: S1, S2, RRR GI: +BS, NT, no distention Skin: Warm, dry Neuro: Cranial nerves II-XII grossly intact bilaterally. Motor grossly intact bilaterally Extremities: No edema Psych: Appropriate affect Vital Signs: Vital Signs: Last Vital Signs Temp 98.4 F 06/29/25 15:43 Pulse 106 H 06/29/25 15:43 Resp 20 06/29/25 15:43 BP 108/67 06/29/25 15:43 Pulse Ox 96 06/29/25 15:43 O2 Del Method High Flow Nasal C annula 06/29/25 15:43 O2 Flow Rate 40 06/29/25 07:46 FiO2 40 06/29/25 04:00 Oxygen Flow Rate 2 06/28/25 11:18 BMI result Body Mass Index 40.4 Objective Data Active Medications Acetaminophen (Acetaminophen 325 Mg Tablet) 650 mg PO Q6H PRN PRN Reason: Pain, Mild 1-3,fever,headache Albuterol Sulfate (Albuterol Sulfate 90 Mcg 8 Gm Inhaler) 2 puff INHALE Q4H PRN PRN Reason: Shortness Of Breath Or Wheezing Albuterol/Ipratropium (Albuterol/Iprat 2.5/0.5mg 3 Ml Ampul.Neb) 3 ml INHALE RQ4H WHILE AWAKE [facility] Last Admin: 06/29/25 15:27 Dose: 3 ml Documented By: ANSELMO Amlodipine Besylate (Amlodipine Besylate 5 Mg Tablet) 5 mg PO DAILY [facility]; Protocol Last Admin: 06/29/25 08:27 Dose: 5 mg Documented By: CANDE Calcium Carbonate (Calcium Carbonate 750 Mg Tab.Chew) 750 mg PO Q4H PRN PRN Reason: Heartburn Duloxetine HCl (Duloxetine Hcl 30 Mg Capsule.Dr) 60 mg PO BID [facility] Last Admin: 06/29/25 08:27 Dose: 60 mg Documented By: CANDE Enoxaparin Sodium (Enoxaparin Sodium 40 Mg/0.4 Ml Syringe) 40 mg SUBCUT Q24H [facility] Last Admin: 06/29/25 17:33 Dose: 40 mg Documented By: CANDE Ferrous Sulfate (Ferrous Sulfate 300 Mg/5 Ml Liquid) 300 mg PO BIDWM [facility] Last Admin: 06/29/25 17:33 Dose: 300 mg Documented By: CANDE Guaifenesin/Codeine Phosphate (Guaifen/Codeine Sf 200/20/10ml 10 Ml Liquid) 5 ml PO Q4H PRN PRN Reason: Cough Piperacillin Sod/Tazobactam (Sod 3.375 gm/ Sodium Chloride) 50 mls @ 100 mls/hr IV Q6H [facility] Last Infusion: 06/29/25 15:59 Dose: Infused Documented By: CANDE Vancomycin HCl 1,000 mg/ (Sodium Chloride) 270 mls @ 270 mls/hr IV Q12H [facility] Last Infusion: 06/29/25 13:13 Dose: Infused Documented By: CANDE Influenza Virus Vaccine (Flu Vacc [id number](6mo Up)/Pf 0.5 Ml Syringe) 0.5 ml IM .ONCE ONE Stop: 06/30/25 09:01 Lamotrigine (Lamotrigine 100 Mg Tablet) 200 mg PO BEDTIME [facility] Last Admin: 06/28/25 20:49 Dose: 200 mg Documented By: BELTRAN Magnesium Hydroxide (Milk Of Magnesia 30 Ml Oral.Susp) 30 ml PO DAILY PRN PRN Reason: Constipation Methylprednisolone Sodium Succinate (Methylprednisolone Sod Succ 40 Mg/Ml Vial) 40 mg IVPUSH Q12H [facility] Last Admin: 06/29/25 08:26 Dose: 40 mg Documented By: CANDE Mirabegron (Mirabegron 25 Mg Tab.Er.24h) 25 mg PO DAILY [facility] Last Admin: 06/29/25 08:27 Dose: 25 mg Documented By: CANDE Morphine Sulfate (Morphine Sulfate 4 Mg/Ml Cartridge) 2 mg IVPUSH Q6H PRN; Protocol PRN Reason: anxiety/restlessness Last Admin: 06/29/25 12:02 Dose: 2 mg Documented By: CANDE Omeprazole (Omeprazole 40 Mg Capsule.Dr) 40 mg PO DAILY@0630 [facility] Last Admin: 06/29/25 06:20 Dose: 40 mg Documented By: MECHELLE Ondansetron HCl (Ondansetron Hcl 4 Mg/2 Ml Vial) 4 mg IVPUSH Q8H PRN PRN Reason: Nausea and Vomiting Pharmacy Consult (Consult Rx Vancomycin Dosing) 1 each MISCELLANE DAILY PRN PRN Reason: Consult order Quetiapine Fumarate (Quetiapine Fumarate 25 Mg Tablet) 25 mg PO BEDTIME [facility] Last Admin: 06/28/25 20:50 Dose: 25 mg Documented By: BELTRAN Sodium Chloride (0.9 % Sodium Chloride Flush 3 Ml Syringe) 3 ml IVFLUSH QSHIFT [facility] Last Admin: 06/29/25 15:17 Dose: 3 ml Documented By: CANDE Zolpidem Tartrate (Zolpidem Tartrate 5 Mg Tablet) 5 mg PO BEDTIME PRN PRN Reason: Sleep Last Admin: 06/28/25 20:50 Dose: 5 mg Documented By: BELTRAN Labs 06/29/25 06:32 06/29/25 06:32 Labs: Laboratory Results - last 24 hr 06/29/25 06:32 MCV 69.5 L MCH 20.7 L MCHC 29.8 L RDW 15.9 Plt Count 350 MPV 9.2 L Absolute Nucleated RBC 0.000 Nucleated RBC % (auto) 0.0 Anion Gap 11 L Estim Creat Clear Calc 83.9 Estimated GFR > 60 Random Glucose 109 Calcium 9.4 Microbiology Microbiology Results: Microbiology 06/28/25 11:56 Blood Culture - Preliminary Blood - Venous No growth after 24 hours. 06/28/25 11:44 Blood Culture - Preliminary Blood - Venous No growth after 24 hours. Assessment and Plan (1) COPD (chronic obstructive pulmonary disease): Status: Acute (2) Acute on chronic hypoxic respiratory failure: Status: Acute Plan Pt is a 64-year-old female with a PMH significant for?COPD on 2 L home O2, HTN, and bipolar disorder who presents to the ED with?increased SOB and nonproductive cough x4 days. Pt is admitted to the hospital for treatment and further evaluation of acute on chronic hypoxic respiratory failure in the setting of COPD exacerbation with concern for underlying hospital-acquired pneumonia with sepsis. Acute on chronic hypoxic respiratory failure in the setting of pneumonia with sepsis with severe features Concern for hospital-acquired pneumonia as pt hospitalized 05/29-06/05 Met sepsis criteria with severe features with tachycardia and tachypnea and high-flow; lactic acid WNL, BP stable Continue to empirically treat with Zosyn, day 2 Continues on high-flow MRSA swab negative, discontinue vanc ID consult Titrate supplemental oxygen to >90 on home 2L [place] Monitor respiratory status, BCx neg after 24 hours HTN Continue amlodipine Iron-deficiency anemia Iron supplementation Tobacco dependence Nicotine patch Obesity class 2 Recommend Disorder Continue duloxetine Full Code Attending:?Dr. Benton DVT Prophylaxis: Lovenox Pt requires continued hospitalization as she is still on high-flow and requiring IV antibiotics, as well as IV steroids and bronchodilator therapy. Quality Stroke Does the patient have a stroke diagnosis?: No VTE Prior VTE?: No VTE Risk Level:: Medical - moderate - high VTE Device Contraindication: Treatment Not Indicated VTE Drug Contraindication: N/A - Med Ordered
--- NOTE | 2025-06-29 23:28 | W.PM.IDCN ---
History of Present Illness Data of Consult Service Date: 06/29/25 Requesting physician: Jackson Holland Primary Care Provider: Daljit Irby MD HPI Reason for consult: shortness of breath She presents with shortness of breath. She was discharged two weeks ago on Doxcycline for exacerbation. She has some yellow sputum Review of Systems Review of Systems: Yes all other systems are reviewed and are negative PMFSH Past Medical History Medical History Mood disorder Tobacco use disorder Hx of head injury Anemia Panic anxiety syndrome Pelvic mass Anemia COPD (chronic obstructive pulmonary disease) Family History Family history: reviewed and not pertinent Surgical History Surgical History Hx of colonoscopy History of mandibular surgery H/O: hysterectomy Social History Social History Household Members: Other Household Members Other:: roommate Housing: House Do you presently have visiting nurse or other home services: No Alcohol intake: unknown Comment: low fall risk Patient Tobacco Use Status: Former Tobacco user Tobacco use type: Cigarette Cigarette Packs Per Day: 1 Cigarettes Per Day: 10 Years Smoked: 40 Smoked in Last 30 Days: Yes Second Hand Smoke Exposure: Yes Substance Use Type: Marijuana Have you been hit, kicked, punched, or otherwise hurt by someone within the past year? If so, by whom?: No Do you feel safe in your current relationship?: No Current Relationship Is there a partner from a previous relationship who is making you feel unsafe now?: No Are you made to feel afraid or neglected: No Advance Directives: No Advance Directives Information Provided: Yes Do you have a plan to hurt others: No Plan Recently lost weight without trying: No How much weight loss: Not applicable Eating poorly because of decreased appetite: No Nutrition screen score: 0 Nutrition Risks: Difficulty chewing Patient : No : No Poor oral hygiene: No service: No Current occupational status: employed Current occupation: [employer]/ left hand dominant Meds Allergies Allergy/AdvReac Type Severity Reaction Status Date / Time No Known Allergies Allergy Verified 06/28/25 11:26 Active Medications: Current Medications Acetaminophen (Acetaminophen 325 Mg Tablet) 650 mg PO Q6H PRN PRN Reason: Pain, Mild 1-3,fever,headache Albuterol Sulfate (Albuterol Sulfate 90 Mcg 8 Gm Inhaler) 2 puff INHALE Q4H PRN PRN Reason: Shortness Of Breath Or Wheezing Albuterol/Ipratropium (Albuterol/Iprat 2.5/0.5mg 3 Ml Ampul.Neb) 3 ml INHALE RQ4H WHILE AWAKE [facility] Last Admin: 06/29/25 20:02 Dose: 3 ml Amlodipine Besylate (Amlodipine Besylate 5 Mg Tablet) 5 mg PO DAILY [facility]; Protocol Last Admin: 06/29/25 08:27 Dose: 5 mg Calcium Carbonate (Calcium Carbonate 750 Mg Tab.Chew) 750 mg PO Q4H PRN PRN Reason: Heartburn Duloxetine HCl (Duloxetine Hcl 30 Mg Capsule.Dr) 60 mg PO BID [facility] Last Admin: 06/29/25 20:44 Dose: 60 mg Enoxaparin Sodium (Enoxaparin Sodium 40 Mg/0.4 Ml Syringe) 40 mg SUBCUT Q24H [facility] Last Admin: 06/29/25 17:33 Dose: 40 mg Ferrous Sulfate (Ferrous Sulfate 300 Mg/5 Ml Liquid) 300 mg PO BIDWM [facility] Last Admin: 06/29/25 17:33 Dose: 300 mg Guaifenesin/Codeine Phosphate (Guaifen/Codeine Sf 200/20/10ml 10 Ml Liquid) 5 ml PO Q4H PRN PRN Reason: Cough Piperacillin Sod/Tazobactam (Sod 3.375 gm/ Sodium Chloride) 50 mls @ 100 mls/hr IV Q6H [facility] Last Infusion: 06/29/25 20:47 Dose: Infused Vancomycin HCl 1,500 mg/ (Sodium Chloride) 500 mls @ 333.333 mls/hr IV Q12H [facility] Influenza Virus Vaccine (Flu Vacc [id number](6mo Up)/Pf 0.5 Ml Syringe) 0.5 ml IM .ONCE ONE Stop: 06/30/25 09:01 Lamotrigine (Lamotrigine 100 Mg Tablet) 200 mg PO BEDTIME [facility] Last Admin: 06/29/25 20:44 Dose: 200 mg Magnesium Hydroxide (Milk Of Magnesia 30 Ml Oral.Susp) 30 ml PO DAILY PRN PRN Reason: Constipation Methylprednisolone Sodium Succinate (Methylprednisolone Sod Succ 40 Mg/Ml Vial) 40 mg IVPUSH Q12H [facility] Last Admin: 06/29/25 20:44 Dose: 40 mg Mirabegron (Mirabegron 25 Mg Tab.Er.24h) 25 mg PO DAILY [facility] Last Admin: 06/29/25 08:27 Dose: 25 mg Morphine Sulfate (Morphine Sulfate 4 Mg/Ml Cartridge) 2 mg IVPUSH Q6H PRN; Protocol PRN Reason: anxiety/restlessness Last Admin: 06/29/25 12:02 Dose: 2 mg Omeprazole (Omeprazole 40 Mg Capsule.Dr) 40 mg PO DAILY@629 [facility] Last Admin: 06/29/25 06:20 Dose: 40 mg Ondansetron HCl (Ondansetron Hcl 4 Mg/2 Ml Vial) 4 mg IVPUSH Q8H PRN PRN Reason: Nausea and Vomiting Pharmacy Consult (Consult Rx Vancomycin Dosing) 1 each MISCELLANE DAILY PRN PRN Reason: Consult order Quetiapine Fumarate (Quetiapine Fumarate 25 Mg Tablet) 25 mg PO BEDTIME [facility] Last Admin: 06/28/25 20:50 Dose: 25 mg Sodium Chloride (0.9 % Sodium Chloride Flush 3 Ml Syringe) 3 ml IVFLUSH QSHIFT [facility] Last Admin: 06/29/25 15:17 Dose: 3 ml Zolpidem Tartrate (Zolpidem Tartrate 5 Mg Tablet) 5 mg PO BEDTIME PRN PRN Reason: Sleep Last Admin: 06/29/25 20:45 Dose: 5 mg Home Medications ?Medication ?Instructions ?Recorded ?Confirmed ?Last Taken ?Type duloxetine 60 mg capsule,delayed 60 mg PO BID 09/01/21 06/28/25 06/28/25 History release sprinkle lamotrigine 200 mg tablet 200 mg PO BEDTIME 09/01/21 06/28/25 06/27/25 History quetiapine 25 mg tablet 25 mg PO BEDTIME 02/14/22 06/28/25 06/27/25 History omeprazole 40 mg capsule,delayed 40 mg PO DAILY@30 07/03/22 06/28/25 06/28/25 History release mirabegron 25 mg tablet,extended 25 mg PO DAILY 02/15/24 06/28/25 06/28/25 History release 24 hr (Myrbetriq) albuterol sulfate 90 mcg/actuation 2 puff inhalation Q4H PRN 05/30/25 06/28/25 Unknown History aerosol inhaler Shortness Of Breath Or Wheezing fluticasone fur. 100 mcg-umeclid 1 ea inhalation DAILY 05/30/25 06/28/25 06/28/25 History 62.5 mcg-vilant 25 mcg inhalat.powder (Trelegy Ellipta) zolpidem 5 mg tablet 5 mg PO BEDTIME PRN Sleep 05/30/25 06/28/25 Unknown History doxycycline hyclate 100 mg tablet 100 mg PO BID 06/28/25 06/28/25 06/28/25 History prednisone 10 mg tablet See Taper PO DIRECTED 06/28/25 06/28/25 06/28/25 History Physical Exam Vital Signs: Vital Signs: Last Vital Signs Temp 97.5 F 06/29/25 20:00 Pulse 106 H 06/29/25 20:02 Resp 20 06/29/25 20:02 BP 140/77 H 06/29/25 20:00 Pulse Ox 90 L 06/29/25 20:00 O2 Del Method Nasal Cannula 06/29/25 20:00 O2 Flow Rate 4 06/29/25 20:00 FiO2 40 06/29/25 04:00 Oxygen Flow Rate 2 06/28/25 11:18 BMI result Body Mass Index 40.4 Resp: Other: left more than right sided wheezes Effort & Inspection: audible wheezes Results Labs 06/29/25 06:32 06/29/25 06:32 Labs: Short CBC 06/29/25 Range/Units 06:32 WBC 7.5 (4.8-10.8) X10*3/uL Hgb 10.2 L (12.0-16.0) g/dl Hct 34.2 L (37.0-47.0) % Plt Count 350 (160-400) X10*3/uL BMP 06/29/25 06:32 Sodium 143 Potassium 4.2 Chloride 106 Carbon Dioxide 30 H BUN 17 H Creatinine 0.73 Calcium 9.4 Microbiology Microbiology Results: Microbiology 06/28/25 11:56 Blood - Venous Blood Culture - Preliminary No growth after 24 hours. 06/28/25 11:44 Blood - Venous Blood Culture - Preliminary No growth after 24 hours. 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 Cover resistant organisms from in hospital with piperacillin/tazobactam five days or so but stop Vancomycin as no bacteremia and MRSA swab negative. Obtain any sputum sample and check urine Legionella antigen
[2025-06-30] VITALS (10 sets, daily range): BP systolic 109–145; BP diastolic 59–84; PULSE 98–111; RESP 17–20; TEMP 36.6–37.1; O2SAT 91–99
[2025-06-30 06:56] LABS: Creatinine Clr Calc Pharmacy 72.1; Estimated Glomerular Filt Rate > 60
[2025-06-30] MEDS: Ferrous Sulfate 300 MG/5 ML LIQUID PO ×2 (07:58→16:35)
[2025-06-30] MEDS: 0.9 % Sodium Chloride Flush 3 ML SYRINGE IVFLUSH ×3 (07:58→21:29)
[2025-06-30] MEDS: Albuterol/Iprat 2.5/0.5MG 3 ML AMPUL.NEB INHALE ×3 (11:27→19:15)
--- NOTE | 2025-06-30 18:19 | HO.PM.IMPN ---
Subjective Subjective Date of Service: 06/30/25 Interval History: Weaned from high-flow, currently on 4L NC Noted to become tachycardic and desat to 70s with activity; slow recovery once seated Reports feels much better than at time of presentation No CP or pressure Review of Systems Review of Systems: Yes all other systems are reviewed and are negative Physical Exam Exam: Exam: General: AOx3, no acute distress Resp: Diminished throughout, mild diffuse wheezing. On NC. CVS: S1, S2, RRR GI: +BS, NT, no distention Skin: Warm, dry Neuro: Cranial nerves II-XII grossly intact bilaterally. Motor grossly intact bilaterally Extremities: No edema Psych: Appropriate affect Vital Signs: Vital Signs: Last Vital Signs Temp 98.0 F 06/30/25 16:00 Pulse 111 H 06/30/25 16:00 Resp 20 06/30/25 16:00 BP 139/83 06/30/25 16:00 Pulse Ox 92 06/30/25 16:00 O2 Del Method Nasal Cannula 06/30/25 16:00 O2 Flow Rate 4 06/30/25 16:00 FiO2 40 06/29/25 04:00 Oxygen Flow Rate 2 06/28/25 11:18 BMI result Body Mass Index 40.4 Objective Data Active Medications Acetaminophen (Acetaminophen 325 Mg Tablet) 650 mg PO Q6H PRN PRN Reason: Pain, Mild 1-3,fever,headache Albuterol Sulfate (Albuterol Sulfate 90 Mcg 8 Gm Inhaler) 2 puff INHALE Q4H PRN PRN Reason: Shortness Of Breath Or Wheezing Albuterol/Ipratropium (Albuterol/Iprat 2.5/0.5mg 3 Ml Ampul.Neb) 3 ml INHALE RQ4H WHILE AWAKE [facility] Last Admin: 06/30/25 15:09 Dose: 3 ml Documented By: ANSELMO Amlodipine Besylate (Amlodipine Besylate 5 Mg Tablet) 5 mg PO DAILY [facility]; Protocol Last Admin: 06/30/25 07:58 Dose: 5 mg Documented By: CANDE Calcium Carbonate (Calcium Carbonate 750 Mg Tab.Chew) 750 mg PO Q4H PRN PRN Reason: Heartburn Duloxetine HCl (Duloxetine Hcl 30 Mg Capsule.) 60 mg PO BID [facility] Last Admin: 06/30/25 07:58 Dose: 60 mg Documented By: CANDE Enoxaparin Sodium (Enoxaparin Sodium 40 Mg/0.4 Ml Syringe) 40 mg SUBCUT Q24H [facility] Last Admin: 06/30/25 16:42 Dose: 40 mg Documented By: CANDE Ferrous Sulfate (Ferrous Sulfate 300 Mg/5 Ml Liquid) 300 mg PO BIDWM [facility] Last Admin: 06/30/25 16:35 Dose: 300 mg Documented By: CANDE Guaifenesin/Codeine Phosphate (Guaifen/Codeine Sf 200/20/10ml 10 Ml Liquid) 5 ml PO Q4H PRN PRN Reason: Cough Piperacillin Sod/Tazobactam (Sod 3.375 gm/ Sodium Chloride) 50 mls @ 100 mls/hr IV Q6H [facility] Last Infusion: 06/30/25 17:22 Dose: Infused Documented By: CANDE Lamotrigine (Lamotrigine 100 Mg Tablet) 200 mg PO BEDTIME [facility] Last Admin: 06/29/25 20:44 Dose: 200 mg Documented By: MICKY Magnesium Hydroxide (Milk Of Magnesia 30 Ml Oral.Susp) 30 ml PO DAILY PRN PRN Reason: Constipation Methylprednisolone Sodium Succinate (Methylprednisolone Sod Succ 40 Mg/Ml Vial) 40 mg IVPUSH Q12H [facility] Last Admin: 06/30/25 07:57 Dose: 40 mg Documented By: CANDE Mirabegron (Mirabegron 25 Mg Tab.Er.24h) 25 mg PO DAILY [facility] Last Admin: 06/30/25 07:58 Dose: 25 mg Documented By: CANDE Morphine Sulfate (Morphine Sulfate 4 Mg/Ml Cartridge) 2 mg IVPUSH Q6H PRN; Protocol PRN Reason: anxiety/restlessness Last Admin: 06/30/25 16:41 Dose: 2 mg Documented By: CANDE Omeprazole (Omeprazole 40 Mg Capsule.Dr) 40 mg PO DAILY@0630 [facility] Last Admin: 06/30/25 05:01 Dose: 40 mg Documented By: CT Ondansetron HCl (Ondansetron Hcl 4 Mg/2 Ml Vial) 4 mg IVPUSH Q8H PRN PRN Reason: Nausea and Vomiting Pharmacy Consult (Consult Rx Vancomycin Dosing) 1 each MISCELLANE DAILY PRN PRN Reason: Consult order Quetiapine Fumarate (Quetiapine Fumarate 25 Mg Tablet) 25 mg PO BEDTIME [facility] Last Admin: 06/28/25 20:50 Dose: 25 mg Documented By: BELTRAN Sodium Chloride (0.9 % Sodium Chloride Flush 3 Ml Syringe) 3 ml IVFLUSH QSHIFT [facility] Last Admin: 06/30/25 16:35 Dose: 3 ml Documented By: CANDE Zolpidem Tartrate (Zolpidem Tartrate 5 Mg Tablet) 5 mg PO BEDTIME PRN PRN Reason: Sleep Last Admin: 06/29/25 20:45 Dose: 5 mg Documented By: MICKY Labs 06/29/25 06:32 06/30/25 06:14 Labs: Laboratory Results - last 24 hr 06/29/25 06/30/25 21:06 06:14 Hold Purple Top SEE NOTE Estim Creat Clear Calc 72.1 Estimated GFR > 60 Vancomycin Trough 11.4 Microbiology Microbiology Results: Microbiology 06/28/25 11:56 Blood Culture - Preliminary Blood - Venous No growth after 48 hours. 06/28/25 11:44 Blood Culture - Preliminary Blood - Venous No growth after 48 hours. Assessment and Plan (1) Acute on chronic hypoxic respiratory failure: Status: Acute Plan Pt is a 64-year-old female with a PMH significant for?COPD on 2 L home O2, HTN, and bipolar disorder who presents to the ED with?increased SOB and nonproductive cough x4 days. Pt is admitted to the hospital for treatment and further evaluation of acute on chronic hypoxic respiratory failure in the setting of COPD exacerbation with concern for underlying hospital-acquired pneumonia with sepsis. Acute on chronic hypoxic respiratory failure in the setting of pneumonia with sepsis with severe features Concern for hospital-acquired pneumonia as pt hospitalized 05/29-06/05 Met sepsis criteria with severe features with tachycardia and tachypnea and high-flow; lactic acid WNL, BP stable Continue to empirically treat with Zosyn, day 3 Weaned off high-flow last night, maintaining 4-6L NC today MRSA swab negative, discontinue vanc ID consulted, will check sputum culture, urine legionella antigen Titrate supplemental oxygen to >90 on home 2L [place] Monitor respiratory status, BCx neg after 48 hours HTN Continue amlodipine Iron-deficiency anemia Iron supplementation Tobacco dependence Nicotine patch Obesity class 2 Recommend Disorder Continue duloxetine Full Code Attending:?Dr. Benton DVT Prophylaxis: Lovenox Pt requires continued hospitalization as she continues to have oxygenation requirements above baseline and has been desatting significantly into the 70s with any exertion. pt continues to require IV antibiotics, IV steroids, and bronchodilator therapy. Quality Stroke Does the patient have a stroke diagnosis?: No VTE Prior VTE?: No VTE Risk Level:: Medical - moderate - high VTE Device Contraindication: Treatment Not Indicated VTE Drug Contraindication: N/A - Med Ordered
[2025-07-01] VITALS (8 sets, daily range): BP systolic 126–156; BP diastolic 71–76; PULSE 92–108; RESP 17–22; TEMP 36.4–37.1; O2SAT 91–95
[2025-07-01] MEDS: Albuterol/Iprat 2.5/0.5MG 3 ML AMPUL.NEB INHALE ×4 (07:34→19:34)
[2025-07-01] MEDS: Ferrous Sulfate 300 MG/5 ML LIQUID PO ×2 (08:38→17:03)
[2025-07-01] MEDS: 0.9 % Sodium Chloride Flush 3 ML SYRINGE IVFLUSH ×2 (17:03→21:27)
--- NOTE | 2025-07-01 18:03 | P.PNIM_ITS ---
Subjective Subjective Date of Service: 07/01/25 Interval History: Breathing at rest appears back to baseline Reports no significant SOB or difficulty breathing at rest However, when pt ambulates has increased work of breathing, increased SOB, and continues to desat Has been weaned down to home 2L at rest Review of Systems Review of Systems: Yes all other systems are reviewed and are negative Physical Exam 2 Exam: Exam: General: AOx3, no acute distress Resp: CTA bilaterally though diminished. On NC CVS: S1, S2, RRR GI: +BS, NT, no distention Skin: Warm, dry Neuro: Cranial nerves II-XII grossly intact bilaterally. Motor grossly intact bilaterally Extremities: No edema Psych: Appropriate affect Vital Signs: Vital Signs: Last Vital Signs Temp 98.7 F 07/01/25 15:24 Pulse 101 H 07/01/25 15:24 Resp 18 07/01/25 15:24 BP 151/75 H 07/01/25 15:24 Pulse Ox 94 07/01/25 15:24 O2 Del Method Nasal Cannula 07/01/25 15:24 O2 Flow Rate 2 07/01/25 15:24 FiO2 40 06/29/25 04:00 Oxygen Flow Rate 2 06/28/25 11:18 BMI result Body Mass Index 40.4 Objective Data Active Medications Acetaminophen (Acetaminophen 325 Mg Tablet) 650 mg PO Q6H PRN PRN Reason: Pain, Mild 1-3,fever,headache Albuterol Sulfate (Albuterol Sulfate 90 Mcg 8 Gm Inhaler) 2 puff INHALE Q4H PRN PRN Reason: Shortness Of Breath Or Wheezing Albuterol/Ipratropium (Albuterol/Iprat 2.5/0.5mg 3 Ml Ampul.Neb) 3 ml INHALE RQ4H WHILE AWAKE [facility] Last Admin: 07/01/25 15:22 Dose: 3 ml Documented By: MAX Amlodipine Besylate (Amlodipine Besylate 5 Mg Tablet) 5 mg PO DAILY [facility]; Protocol Last Admin: 07/01/25 08:38 Dose: 5 mg Documented By: KEVIN Calcium Carbonate (Calcium Carbonate 750 Mg Tab.Chew) 750 mg PO Q4H PRN PRN Reason: Heartburn Doxycycline Monohydrate (Doxycycline Monohydrate 100 Mg Capsule) 100 mg PO BID [facility] Last Admin: 07/01/25 08:38 Dose: 100 mg Documented By: KEVIN Duloxetine HCl (Duloxetine Hcl 30 Mg Capsule.Dr) 60 mg PO BID [facility] Last Admin: 07/01/25 08:38 Dose: 60 mg Documented By: KEVIN Enoxaparin Sodium (Enoxaparin Sodium 40 Mg/0.4 Ml Syringe) 40 mg SUBCUT Q24H [facility] Last Admin: 06/30/25 16:42 Dose: 40 mg Documented By: CANDE Ferrous Sulfate (Ferrous Sulfate 300 Mg/5 Ml Liquid) 300 mg PO BIDWM [facility] Last Admin: 07/01/25 17:03 Dose: 300 mg Documented By: DEENA Fluticasone/Umeclidinium/Vilanterol (Fluticasone/Umeclidinium/Vilanterol 100/62.5/25 Blst.W.Dev) 1 puff INHALE RDAILY [facility] Last Admin: 07/01/25 11:09 Dose: Not Given Documented By: KEVIN Non-Admin Reason: Med Not Available Guaifenesin/Codeine Phosphate (Guaifen/Codeine Sf 200/20/10ml 10 Ml Liquid) 5 ml PO Q4H PRN PRN Reason: Cough Piperacillin Sod/Tazobactam (Sod 3.375 gm/ Sodium Chloride) 50 mls @ 100 mls/hr IV Q6H [facility] Last Admin: 07/01/25 17:02 Dose: 100 mls/hr Documented By: DEENA Lamotrigine (Lamotrigine 100 Mg Tablet) 200 mg PO BEDTIME [facility] Last Admin: 06/30/25 21:26 Dose: 200 mg Documented By: IDRIS Magnesium Hydroxide (Milk Of Magnesia 30 Ml Oral.Susp) 30 ml PO DAILY PRN PRN Reason: Constipation Methylprednisolone Sodium Succinate (Methylprednisolone Sod Succ 40 Mg/Ml Vial) 40 mg IVPUSH Q12H [facility] Last Admin: 07/01/25 08:38 Dose: 40 mg Documented By: KEVIN Mirabegron (Mirabegron 25 Mg Tab.Er.24h) 25 mg PO DAILY [facility] Last Admin: 07/01/25 08:38 Dose: 25 mg Documented By: KEVIN Morphine Sulfate (Morphine Sulfate 4 Mg/Ml Cartridge) 2 mg IVPUSH Q6H PRN; Protocol PRN Reason: anxiety/restlessness Last Admin: 07/01/25 13:00 Dose: 2 mg Documented By: SUSHILA Omeprazole (Omeprazole 40 Mg Celestino.) 40 mg PO DAILY@0630 [facility] Last Admin: 07/01/25 06:11 Dose: 40 mg Documented By: IDRIS Ondansetron HCl (Ondansetron Hcl 4 Mg/2 Ml Vial) 4 mg IVPUSH Q8H PRN PRN Reason: Nausea and Vomiting Pharmacy Consult (Consult Rx Vancomycin Dosing) 1 each MISCELLANE DAILY PRN PRN Reason: Consult order Quetiapine Fumarate (Quetiapine Fumarate 25 Mg Tablet) 25 mg PO BEDTIME [facility] Last Admin: 06/30/25 21:36 Dose: 25 mg Documented By: IDRIS Sodium Chloride (0.9 % Sodium Chloride Flush 3 Ml Syringe) 3 ml IVFLUSH QSHIFT [facility] Last Admin: 07/01/25 17:03 Dose: 3 ml Documented By: DEENA Zolpidem Tartrate (Zolpidem Tartrate 5 Mg Tablet) 5 mg PO BEDTIME PRN PRN Reason: Sleep Last Admin: 06/29/25 20:45 Dose: 5 mg Documented By: DESIREECOTD Labs 06/29/25 06:32 06/30/25 06:14 Assessment and Plan (1) Acute on chronic hypoxic respiratory failure: Status: Acute (2) Pneumonia: Status: Acute Plan Pt is a 64-year-old female with a PMH significant for?COPD on 2 L home O2, HTN, and bipolar disorder who presents to the ED with?increased SOB and nonproductive cough x4 days. Pt is admitted to the hospital for treatment and further evaluation of acute on chronic hypoxic respiratory failure in the setting of COPD exacerbation with concern for underlying hospital-acquired pneumonia with sepsis. Acute on chronic hypoxic respiratory failure in the setting of pneumonia with sepsis with severe features Concern for hospital-acquired pneumonia as pt hospitalized 05/29-06/05 Met sepsis criteria with severe features with tachycardia and tachypnea and high-flow; lactic acid WNL, BP stable Continue to empirically treat with Zosyn, day 4 Weaned off high-flow on 06/29, now on david 2L NC at rest Continues to experienced increased SOB and is desatting significantly with any kind of exertion MRSA swab negative, discontinue vanc ID consulted, will check sputum culture, urine legionella antigen Titrate supplemental oxygen to >90 on home 2L NC Monitor respiratory status, BCx neg after 48 hours HTN Continue amlodipine Iron-deficiency anemia Iron supplementation Tobacco dependence Nicotine patch Obesity class 2 Recommend Disorder Continue duloxetine Full Code DVT Prophylaxis: Lovenox Pt is improving and now back to baseline 2 L NC at rest, however continues to improve slowly especially with ambulation. pt he is requiring extra supplemental oxygen and increased work of breathing with any exertion. Plan is to continue treatment and reassess tomorrow. pt can likely be discharged home tomorrow if her breathing improves with ambulation. Quality Stroke Does the patient have a stroke diagnosis?: No VTE Prior VTE?: No VTE Risk Level:: Medical - moderate - high VTE Device Contraindication: Treatment Not Indicated VTE Drug Contraindication: N/A - Med Ordered
[2025-07-01] MEDS: guaiFEN/Codeine SF 200/20/10ML 10 ML LIQUID 5 ML PO (21:26)
[2025-07-02 03:05] VITALS: BP 136/83; PULSE 104; RESP 18; TEMP 36.6; O2SAT 93
[2025-07-02] MEDS: Fluticasone/Umeclidinium/Vilanterol 100/62.5/25 BLST.W.DEV 1 PUFF INHALE (07:18)
[2025-07-02] MEDS: Albuterol/Iprat 2.5/0.5MG 3 ML AMPUL.NEB INHALE ×2 (07:18→11:12)
[2025-07-02 07:21] VITALS: PULSE 102; RESP 18; O2SAT 95
[2025-07-02 08:00] VITALS: BP 142/63; PULSE 102; RESP 20; TEMP 36.7; O2SAT 91
[2025-07-02 09:29] VITALS: BP 135/76
[2025-07-02] MEDS: 0.9 % Sodium Chloride Flush 3 ML SYRINGE IVFLUSH (09:29)
[2025-07-02] MEDS: Ferrous Sulfate 300 MG/5 ML LIQUID PO (09:29)
[2025-07-02 11:12] VITALS: PULSE 102; RESP 17; O2SAT 99
--- NOTE | 2025-07-02 11:45 | P.DS_ITS ---
DS: Providers Provider Date of Service: 07/02/25 Date of admission: 06/28/25 14:17 Date of discharge: 07/02/25 Primary care physician: Daljit Irby MD Consults: 06/28/25 15:32 Consult to Infectious Diseases Routine Consulting Provider: [facility] Reason for consultation: Likely hospital aquired pneumonia DS: Diagnosis Discharge Diagnosis (1) Acute on chronic hypoxic respiratory failure: Status: Acute (2) Pneumonia: Status: Acute DS: Summary Hospital Course Hospital Course: From admission HPI: Date of Service: 06/28/25 Attending physician on admission: Maureen Benton Chief Complaint: SOB Pt is a 64-year-old female with a PMH significant for?COPD on 2 L home O2, HTN, and bipolar disorder who presents to the ED with?increased SOB and nonproductive cough x4 days. Pt was recently hospitalized last month from 05/29-06/05 for acute on chronic respiratory acidosis, hypoxia, pneumonia, COVID-19 infection, and fu sobacterium bacteremia. Pt was treated with 5 days of remdesivir and 7 days of methylprednisolone, and was seen and evaluated by ID who recommended treating with ceftriaxone and metronidazole while in the hospital and discharging home on cefuroxime and metronidazole x10 more days. PT recommended discharge to short- term rehab, but pt declined went home with VNA services. Reports took all of her home antibiotics as prescribed and overall did well and was soon able to return to work. Pt even reports has not had any cigarettes since discharge. Four days ago, however, pt woke up and found that she could not breathe. Called her PCP and was started on prednisone and doxycycline, as well as breathing treatments every 2 hours to little effect. Decided to come in today as symptoms continued to worsen. Denies fever or chills. No nausea, vomiting, or abdominal pain. In the ED pt's vitals were significant for tachycardia up to 123, tachypneic up to 28, and desatting to 77% on 2 L NC. Currently on high-flow. Labs were significant for leukocytosis 11.3 and slight bump in creatinine up to 0.91 (baseline 0.7), otherwise grossly unremarkable and around baseline for pt. Lactic acid WNL 1.2. MRSA swab pending. CXR showed bibasilar subtle patchy opacities concerning for infectious/inflammatory origin. CTA of chest negative for pulmonary embolus, but showed nonspecific vague ground-glass densities in both lungs. Pt was treated in the ED with DuoNebs, Solu-Medrol, Mag sulfate, vancomycin and Zosyn. Pt is admitted to the hospital for treatment and further evaluation of acute on chronic hypoxic respiratory failure in the setting of COPD exacerbation with concern for underlying hospital-acquired pneumonia with sepsis. Hospital course Pt was admitted to the hospital for acute on chronic hypoxic respiratory failure in setting of underlying hospital-acquired pneumonia that failed outpatient therapy. Pt met sepsis with severe features and she was tachycardic and tachypneic, and required high-flow oxygen for respiratory distress. Pt was initially treated with empiric vancomycin and Zosyn for hospital-acquired pneumonia. Pt was seen and evaluated by Infectious Disease and vancomycin was eventually stopped as MRSA swab was negative. Zosyn was continued throughout hospital stay. Pt was eventually weaned off of high-flow and then slowly titrated down to her baseline 2L NC. Patient's symptoms of SOB and ELIZONDO also gradually improved. Currently at time of discharge pt is stable on her home 2 L NC. Pt reports that she has not smoked since last hospitalization, pt is at high risk for recurrent COPD exacerbation given hx, and especially if she resumes smoking. Pt declined nicotine replacement therapy. Pt will be discharged home on a course of Augmentin 875 mg b.i.d. x3 days, doxycycline 100 mg b.i.d. x3 days, and prednisone 40 mg daily x3 days. Pt should resume all of her other home medications, including home inhalers. Pt is also strongly encouraged to abstain from smoking. Additional details concerning hospital stay as listed below. Acute on chronic hypoxic respiratory failure in the setting of pneumonia with sepsis with severe features Concern for hospital-acquired pneumonia as pt hospitalized 05/29-06/05 Met sepsis criteria with severe features with tachycardia and tachypnea and high-flow; lactic acid WNL, BP stable Treated with Zosyn x4 days Weaned off high-flow on 06/29, now on david 2L NC at rest MRSA swab negative, vanc d/c'd ID consulted HTN Continue amlodipine Iron-deficiency anemia Iron supplementation Tobacco dependence Nicotine patch Obesity class 2 Recommend weight loss Disorder Continue duloxetine Time Attestation Discharge Coordination Time (in mins): 35 Quality: Safe Use of Opioids Does Pt have an Active Cancer Diagnosis on the Problem List?: No Quality: Stroke Does the patient have a stroke diagnosis?: No Physical Exam Exam: Exam: General: AOx3, no acute distress Resp: Lungs diminished but clear. On NC CVS: S1, S2, RRR GI: +BS, NT, no distention Skin: Warm, dry Neuro: Cranial nerves II-XII grossly intact bilaterally. Motor grossly intact bilaterally Extremities: No edema Psych: Appropriate affect Vital Signs: Vital Signs: Last Vital Signs Temp 98.1 F 07/02/25 08:00 Pulse 102 H 07/02/25 11:12 Resp 17 07/02/25 11:12 BP 135/76 07/02/25 09:29 Pulse Ox 91 L 07/02/25 08:00 O2 Del Method Nasal Cannula 07/02/25 08:00 O2 Flow Rate 2 07/02/25 08:00 FiO2 40 06/29/25 04:00 Oxygen Flow Rate 2 06/28/25 11:18 BMI result Body Mass Index 40.4 DS: Data Data Completed and Pending Completed studies during hospitalization [Text1]: Procedures Assistance with Respiratory Ventilation, Less than 24 Consecutive Hours, Continuous Positive Airway Pressure (05/29/25) Excision of Stomach, Pylorus, Via Natural or Artificial Opening Endoscopic, Diagnostic (09/23/21) Introduction of Remdesivir Anti-infective into Peripheral Vein, Percutaneous Approach, [employer] 5 (05/29/25) Transfusion of Nonautologous Red Blood Cells into Peripheral Vein, Percutaneous Approach (09/23/21) Labs on day of discharge: Preliminary micro results at discharge 06/28/25 11:56 Blood Culture - Preliminary Blood - Venous No growth after 48 hours. 06/28/25 11:44 Blood Culture - Preliminary Blood - Venous No growth after 48 hours. Discharge Plan Discharge Anticipated Discharge Date/Time: 07/02/25 09:59 Patient Disposition: Home, Self-Care Discharge Diagnosis: Acute on chronic hypoxic respiratory failure in the setting of pneumonia with sepsis Referrals: Daljit Irby MD [Primary Care Provider, Internal Medicine] - 1 Week Discharge Medications: New amoxicillin-pot clavulanate 875-125 mg tablet 1 tab PO BID Qty: 7 0RF Rx Instructions: Take one tablet twice a day with meals for the next 3 days, starting the evening of 07/02 and ending the evening 07/05 prednisone 20 mg tablet 40 mg PO DAILY Qty: 6 0RF Rx Instructions: Take two tablets (40mg total) daily for the next 3 days, starting on 07/03 and ending 07/05 Continued lamotrigine 200 mg Tablet 200 mg PO BEDTIME duloxetine 60 mg Capsule, Delayed Rel Sprinkle 60 mg PO BID quetiapine 25 mg tablet 25 mg PO BEDTIME omeprazole 40 mg capsule,delayed release(DR/EC) 40 mg PO DAILY@0630 Rx Instructions: After 8 weeks to take it daily mirabegron [Myrbetriq] 25 mg tablet extended release 24 hr 25 mg PO DAILY amlodipine 5 mg Tablet 5 mg PO DAILY Qty: 90 0RF Protocol: Hold for SBP< HOLD for SBP < : 90 albuterol sulfate 2.5 mg /3 mL (0.083 %) solution for nebulization 2.5 mg inhalation QID PRN (Reason: Shortness Of Breath Or Wheezing) Qty: 180 1RF zolpidem 5 mg tablet 5 mg PO BEDTIME PRN (Reason: Sleep) Trelegy Ellipta 100-62.5-25 mcg blister with device 1 ea inhalation DAILY albuterol sulfate 90 mcg/actuation HFA aerosol inhaler 2 puff inhalation Q4H PRN (Reason: Shortness Of Breath Or Wheezing) doxycycline hyclate 100 mg tablet 100 mg PO BID prednisone 10 mg tablet See Taper PO DIRECTED Taper: Prednisone 40 mg daily for 1 Day and 0 Hour 30 mg daily for 4 Days and 0 Hour 20 mg daily for 4 Days and 0 Hour 10 mg daily for 4 Days and 0 Hour Rx Instructions: 40 mg daily x 4 days, then 30 mg daily x 4 days, then 20 mg daily x 4 days, then 10 mg daily x 4 days Activity on Discharge: As tolerated Stand Alone Forms: Patient Portal Discharge page Print Language: Niuean Care Plan Goals: See below Health Concerns: Acute on hypoxic respiratory failure Hospital-acquired pneumonia COPD exacerbation Sepsis Plan of Treatment: You were admitted to the hospital for acute on chronic hypoxic respiratory failure in the setting of pneumonia with sepsis that failed outpatient therapy. You were initially in respiratory distress and required high-flow oxygen for t he 1st 2 days of your hospitalization. Concern was for hospital-acquired pneumonia as you had a recent hospitalization less than 1 month prior to presentation. You were seen and evaluated by Infectious Disease and started on IV antibiotics. You responded appropriately, if not slowly, to therapies and your breathing and SOB gradually improved. At time of discharge you were in stable condition, on your home 2 L O2, and eager to be discharged home. -- take amoxicillin 870 mg and doxycycline 100 mg twice a day with food for the next 3 days, starting the evening of 07/02 and ending the evening of 07/05 -- take prednisone 40mg daily for the next 3 days, starting on 07/03 and ending 07/05 -- resume all of your other home medications -- you are strongly encouraged to continue to abstain from smoking cigarettes Assessment: See discharge summary
[2025-07-02 12:00] VITALS: BP 146/73; PULSE 106; RESP 24; TEMP 36.8; O2SAT 93
--- NOTE | 2025-07-02 12:06 | MHC.CM.PN ---
Patient has been medically cleared for dc to home today, self care.
== END 2025-07-02 14:34 | disposition home or self-care (01) | DRG 871 ==
LOC: HO.ED 13:42 → HO.EDOVER 14:31 → HO.IMC 22:42
PROVIDERS: Physician Assistant; Admitting Provider Student in an Organized Health Care Education/Training Program; Emergency Provider Student in an Organized Health Care Education/Training Program; PCP Internal Medicine; Visit Provider Student in an Organized Health Care Education/Training Program
DX: A41.9 Sepsis, unspecified organism (principal); J18.9 Pneumonia, unspecified organism; J96.21 Acute and chronic respiratory failure with hypoxia; J44.0 Chronic obstructive pulmonary disease with (acute) lower respiratory infection; J44.1 Chronic obstructive pulmonary disease with (acute) exacerbation; Z68.41 Body mass index [BMI] 40.0-44.9, adult; D50.9 Iron deficiency anemia, unspecified; Z20.822 Contact with and (suspected) exposure to COVID-19; E66.812 Obesity, class 2; Z71.3 Dietary counseling and surveillance; Z99.81 Dependence on supplemental oxygen; Z87.891 Personal history of nicotine dependence; Z79.51 Long term (current) use of inhaled steroids; Z79.899 Other long term (current) drug therapy
CPT/HCPCS: 36415; 71045; 71275; 80048; 80053; 80202; 82565; 83605; 83880; 84484; 85025; 85027; 87040; 87449; 87502; 87635; 87640; 87641; 93005; 94640; 99285; J1650; J2270; J2543; J2919; J3373; J3374; J3475; Q9967

== ENCOUNTER → 2025-06-28 11:19 | Outpatient (BNV) | payer OTHER, SELFPAY | PROVIDERS: Admitting Provider Student in an Organized Health Care Education/Training Program; Emergency Provider Student in an Organized Health Care Education/Training Program; PCP Internal Medicine; Visit Provider Internal Medicine Cardiovascular Disease | DX: R00.0 Tachycardia, unspecified (principal) | CPT/HCPCS: 93010 ==

== ENCOUNTER → 2025-06-28 11:21 | Outpatient (BNV) | payer OTHER, SELFPAY | PROVIDERS: Emergency Provider Student in an Organized Health Care Education/Training Program; PCP Internal Medicine; Visit Provider Radiology Diagnostic Radiology | DX: R91.8 Other nonspecific abnormal finding of lung field (principal); M51.34 Other intervertebral disc degeneration, thoracic region | CPT/HCPCS: 71045; 71275 ==

== ENCOUNTER → 2025-06-28 14:17 | Outpatient (BNV) | payer OTHER, SELFPAY | PROVIDERS: Admitting Provider Student in an Organized Health Care Education/Training Program; Emergency Provider Student in an Organized Health Care Education/Training Program; PCP Internal Medicine; Visit Provider Student in an Organized Health Care Education/Training Program | DX: J44.1 Chronic obstructive pulmonary disease with (acute) exacerbation (principal); J18.9 Pneumonia, unspecified organism; J96.21 Acute and chronic respiratory failure with hypoxia; J96.22 Acute and chronic respiratory failure with hypercapnia | CPT/HCPCS: 99223; 99233 ==

== ENCOUNTER → 2025-06-28 14:17 | Outpatient (BNV) | payer OTHER, SELFPAY | PROVIDERS: Admitting Provider Student in an Organized Health Care Education/Training Program; Emergency Provider Student in an Organized Health Care Education/Training Program; PCP Internal Medicine; Visit Provider Internal Medicine | DX: J96.21 Acute and chronic respiratory failure with hypoxia (principal); J96.22 Acute and chronic respiratory failure with hypercapnia | CPT/HCPCS: 99222 ==

== ENCOUNTER 2025-07-09 10:41 | Outpatient (AMB) | payer OTHER, SELFPAY ==
--- NOTE | 2025-07-09 10:55 | A.OFFVIS_ITS ---
Vital Signs 07/09/25 10:57 Height 5 ft 3 in Weight 215 lb 8 oz BMI 38.2 BP 138/86 Blood Pressure Location Lt brachial Position Sitting Pulse 103 H Pulse Source Pulse Oximeter Pulse Oximetry (%) 90 L Oxygen Delivery Method Room Air Intake Visit Reasons: Hypoxic/Hypercapnic Respiratory Failure Allergies No Known Allergies Allergy (Verified 07/09/25 10:59) HPI HPI Hypoxic/Hypercapnic Respiratory Failure: Details: Lissette is a pleasan 64 year old female, former 40+ pack year smoker, recently quit smoking, with underlying COPD on 2 L home O2, HTN, and bipolar disorder. She was referred by [facility] after recent admission. Pt was hospitalized 05/29-06/05 for acute on chronic respiratory acidosis, hypoxia, pneumonia, COVID-19 infection, and fusobacterium bacteremia. Pt was treated with 5 days of remdesivir and 7 days of methylprednisolone, and was seen and evaluated by ID who recommended treating with ceftriaxone and metronidazole while in the hospital and discharging home on cefuroxime and metronidazole x10 more days. She was then readmitted after symptoms recurred. She had called her PCP and was started on prednisone and doxycycline, as well as breathing treatments every 2 hours to little effect. Ultimately readmitted 06/28-07/02 for Acute on chronic hypoxic respiratory failure in the setting of pneumonia with sepsis. In the ED pt's vitals were significant for tachycardia up to 123, tachypneic up to 28, and desatting to 77% on 2 L NC, initially requiring high-flow. CXR showed bibasilar subtle patchy opacities concerning for infectious/inflammatory origin. CTA of chest negative for pulmonary embolus, but showed nonspecific vague ground-glass densities in both lungs. Pt was treated in the ED with DuoNebs, Solu-Medrol, Mag sulfate, vancomycin and Zosyn. Discharged on 2L supplemental oxygen as well as Augmentin and prednisone. DME is [facility]. Since discharge patient feels symptoms are back to baseline, reports intermittent cough and continues with dyspnea with moderate exertion. She has been using Trelegy 100 mcg and nebulized albuterol BID with moderate effect. She uses supplemental oxygen at home with exertion and NOC, typically at 2 liters per minute, and has been advised to maintain oxygen saturation above 92%. She has supplemental oxygen with her today however not wearing, satting 90%. The patient has a significant smoking history, having smoked a pack per day since her teens, but has abstained for the past month. She has a family history of COPD and emphysema, with both parents being smokers. 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 The patient experiences anxiety, which she attributes to her recent smoking cessation and personal stressors. She has not been able to reestablish care with a psychiatrist since her previous provider retired. PFSH Medical History Mood disorder Tobacco use disorder Hx of head injury Anemia Panic anxiety syndrome Pelvic mass Anemia COPD (chronic obstructive pulmonary disease) Surgical History Hx of colonoscopy History of mandibular surgery H/O: hysterectomy Social History Household Members: Other Household Members Other:: roommate Housing: House Do you presently have visiting nurse or other home services: No Alcohol intake: unknown Comment: Pt takes off chair alarm Patient Tobacco Use Status: Former Tobacco user Tobacco use type: Cigarette Cigarette Packs Per Day: 1 Cigarettes Per Day: 10 Years Smoked: 40 Second Hand Smoke Exposure: Yes Substance Use Type: Marijuana service: No Current occupational status: employed Current occupation: [employer]/ left hand dominant Review of Systems Const Denies chills, Denies excessive sweating, Denies fever(s), Denies headache(s) and Denies night sweats Eyes Denies dry eyes, Denies irritation and Denies itchy eyes ENT Reports Normal hearing present and Denies headache(s) Card Denies chest pain, Denies chest pain at rest, Denies chest pain with activity, Denies claudication, Denies leg edema, Denies dyspnea, Reports dyspnea on exe rtion, Denies orthopnea and Denies paroxysmal nocturnal dyspnea Resp Denies chest congestion, Denies excessive phlegm production, Denies pain on inspiration, Denies pain with cough, Denies dyspnea, Reports dyspnea on exertion, Denies stridor and Denies wheezing Musc Denies myalgias Neuro Reports Normal hearing present and Denies headache(s) Endo Denies excessive sweating Luisito/Lymph Denies lymphadenopathy Aller/Immun Denies itchy eyes, Denies seasonal rhinorrhea and Denies wheezing Physical Exam Vital Signs: Last Vital Signs Pulse 103 H 07/09/25 10:57 BP 138/86 07/09/25 10:57 Pulse Ox 90 L 07/09/25 10:57 Oxygen Delivery Method Room Air 07/09/25 10:57 BMI result Body Mass Index 38.2 Const General: cooperative, healthy appearing, comfortable, no acute distress, well developed and alert Nutritional Appearance: obese Orientation/consciousness: patient oriented x3 Limitations: no limitations HEENT Head: Yes normal to inspection, Yes normocephalic and Yes atraumatic Ears: hearing grossly normal bilaterally and external ears normal Eyes General: appearance normal, both eyes and all related structures Eyelids: Yes eyelids normal Sclerae: sclerae normal EOM: EOMs intact bilaterally Neck Neck: Yes normal visual inspection and Yes no lymphadenopathy Lymphatic: no lymphadenopathy noted Chest Chest palpation & inspection: normal inspection of the chest Resp Effort & Inspection: normal respiratory effort, able to speak in complete sentences, no audible wheezes, no cough, no stridor, not tachypneic, no tripod positioning and no use of accessory muscles Auscultation: crackles on the left in the lower lung conway Cardio Jugular venous distension: no JVD Rate: regular rate Rhythm: regular rhythm Skin Other: warm, dry General skin exam: no rashes or lesions noted Neuro General: patient oriented x3 Cranial nerves: Yes Normal hearing present Cognition (Neuro): normal cognition Gait exam (Neuro): Normal gait present Extrem General: Yes normal to inspection, Yes capillary refill normal, Yes no clubbing, cyanosis or edema and Yes no pedal edema Psych Appearance: grossly normal and well kempt Speech and movement: Normal speech and movement present and Clear speech present Affect: normal affect Attitude: cooperative Thought process: Normal thought process present Thought content: Normal thought content present Insight: Good insight present (Psych) Judgement: Good judgement present (Psych) Assessment & Plan Assessment & Plan (1) COPD (chronic obstructive pulmonary disease): Code(s): J44.9 - Chronic obstructive pulmonary disease, unspecified Category: Medical Qualifiers: COPD type: COPD with acute exacerbation Qualified Code(s): J44.1 - Chronic obstructive pulmonary disease with (acute) exacerbation (2) Chronic respiratory failure with hypoxia: Code(s): J96.11 - Chronic respiratory failure with hypoxia Category: Medical (3) History of recent pneumonia: Code(s): Z87.01 - Personal history of pneumonia (recurrent) Category: Medical (4) Nicotine dependence, cigarettes, uncomplicated: Code(s): F17.210 - Nicotine dependence, cigarettes, uncomplicated Category: Medical (5) Nocturnal hypoxemia: Code(s): G47.34 - Idiopathic sleep related nonobstructive alveolar hypoventilation Category: Medical Plan Will increase dose of Trelegy and switch nebulized albuterol to DuoNeb given per sistence of symptoms. A pulmonary function test is scheduled to assess the severity of COPD. Patient feels back to baseline, however on exam patient with inspiratory crackles of LLL, will send for CXR today and plan to have CT chest in 8-10 weeks to assess for resolution of recent PNA. She is aware to call if symptoms change. The patient is advised to maintain oxygen saturation above 92% and to use supplemental oxygen with any exertion. Will send for overnight oximetry to ensure 2L supplemental oxygen at NOC is adequate. She is advised to reestablish care with a psychiatrist for further management. Continued smoking cessation discussed and patient is motivated to do. All questions were answered and patient is in agreement of plan. Will follow up in 8 weeks or sooner if needed. Orders: Orders PFT pulmonary function test Today J44.1 - Chronic obstructive pulmonary disease with (acute) exacerbation CT chest wo IV con 2 Months Z87.01 - Personal history of pneumonia (recurrent) Overnight Pulse Oximetry Today G47.34 - Idiopathic sleep related nonobstructive alveolar hypoventilation XR chest 2V Today Z87.01 - Personal history of pneumonia (recurrent) Medications: New gpdepepfqti-[id number] 200-62.5-25 mcg (Trelegy Ellipta) 1 inh inhalation DAILY 60 ea 3RF ipratropium-albuterol 0.5 mg-3 mg(2.5 mg base)/3 mL 3 mL inhalation Q6H PRN 180 mL 3RF wheezing Coding Level of Care Code New Pt Level 4 (25915) Diagnoses COPD (chronic obstructive pulmonary disease) J44.1 COPD type: COPD with acute exacerbation Chronic respiratory failure with hypoxia J96.11 History of recent pneumonia Z87.01 Nicotine dependence, cigarettes, uncomplicated F17.210 Nocturnal hypoxemia G47.34
[2025-07-09 10:57] VITALS: BP 138/86; PULSE 103; O2SAT 90; BMI 38.2
== END 2025-07-09 11:42 | disposition home or self-care (01) ==
LOC: HO.HPSW 10:42
PROVIDERS: PCP Internal Medicine; Visit Provider Nurse Practitioner Family
DX: J44.1 Chronic obstructive pulmonary disease with (acute) exacerbation (principal); J96.11 Chronic respiratory failure with hypoxia; Z87.01 Personal history of pneumonia (recurrent); F17.210 Nicotine dependence, cigarettes, uncomplicated; G47.34 Idiopathic sleep related nonobstructive alveolar hypoventilation
CPT/HCPCS: 99204

== ENCOUNTER 2025-07-26 11:09 | Outpatient (REF) | payer OTHER, SELFPAY ==
--- NOTE | ~2025-07-26 | XR_ITS ---
EXAMINATION: XR CHEST CLINICAL INFORMATION: Z87.01 - Personal history of pneumonia (recurrent) COMPARISON: June 28, 2025. TECHNIQUE: PA and lateral views FINDINGS: Pulmonary reticular pattern. Linear opacities lung bases. No hyperinflation. No pleural effusion. No pneumothorax. Cardiomediastinal silhouette size is normal. Multilevel spondylosis, axial skeleton. Patient's large body habitus/obesity. XR/XR chest 2V IMPRESSION: Chronic interstitial lung disease. Subsegmental atelectasis, left lung base/lingula. Electronically signed by: Asad Garcia MD 07/26/2025 11:33 AM [facility]
--- OUTSIDE RECORDS SUMMARY | 2025-07-26 14:08 | XMS_ITS | Data Portability ---
Author Organization [facility], Telehealth Patient Home Address [address] [place] [address] Assessment No assessment recorded. Plan of Treatment Reminders Order Date Submit Date Provider Last Modified By Organization Details Last Modified Time Details Appointments None recorded. Lab uric acid, serum or plasma 2024 025 [facility], [address] [place] [address], 19[address], 09:43:02 urinalysis complete, reflex culture 2024 025 [facility], [address] [place] [address], 13981, 09:43:01 hemoglobin A1c, QN, blood 2024 025 [facility], [address] [place] [address], [address], 5 09:43:02 vitamin B12 + folate, serum or blood 2024 025 [facility], [address] [place] [address], 35[address], 5 09:43:02 iron + TIBC + ferritin, serum 2024 025 [facility], [address] [place] [address], 25[address], 5 09:43:01 CMP, serum or plasma 2024 025 [facility], [address] [place] [address], [address], 5 09:43:01 CBC w/ auto diff 2024 025 [facility], [address] [place] [address], 80710, 5 09:43:01 magnesium, serum or plasma 2024 025 [facility], [address] [place] [address], 950[address], 5 09:43:01 ESR (erythrocy te sedimentat ion rate), blood 2024 025 [facility], [address] [place] [address], 75[address], 5 09:43:02 C-reactive protein, quantitati ve, serum or plasma 2024 025 [facility], [address] [place] [address], 178[address], 5 09:43:02 TSH + free T4, serum 2024 025 [facility], [address] [place] [address], 18[address], 5 09:43:02 lipid panel, serum 2023 024 [facility], [address] [place] [address], 355[address], 4 11:05:54 CBC w/ auto diff 2023 024 [facility], [address] [place] [address], 18863, 4 11:05:54 CMP, serum or plasma 2023 024 [facility], [address] [place] [address], 188[address], 4 11:22:06 urinalysis complete, reflex culture 2023 024 [facility], [address] [place] [address], 559[address], 4 11:01:07 iron + TIBC + ferritin, serum 2023 024 [facility], [address] [place] [address], 510[address], 4 11:05:54 vitamin B12 + folate, serum or blood 2023 024 [facility], [address] [place] [address], 726[address], 4 11:05:54 homocystei ne, serum or plasma 2023 024 [facility], [address] [place] [address], [place], [address], 4 11:17:29 TSH + free T4, serum 2023 024 [facility], [address] [place] [address], 27[address], 4 11:06:30 Referral dermatolog ist referral 2024 025 [email or web address] 10 [facility], [address] [place] [address], [address], 5 10:01:06 pulmonolog ist referral 2023 024 Supa Sullivan MD, [address] [place] [address] [place], [address], 4 14:25:12 Procedures None recorded. Surgeries None recorded. Imaging XR, knee, 3 view 2024 025 [facility] (Imaging), [address] [place], [address], 5 08:31:09 PFT, complete - [id number] 03/04/24-09/16 024 [facility], [address] [place], [address], 4 08:41:34 XR, chest, 2 view 2022 023 [facility] (Imaging), [address] [place], [address], 3 08:40:25 Medication Orders Myrbetriq 25 mg tablet,ext ended release 2023 024 [id number], [address] [facility] [place], [address], 4 10:54:00 prednisone 10 mg tablet 2023 024 [facility], [address] [facility] [place], [address], 4 10:54:41 Wellbutrin XL 150 mg 24 hr tablet, extended release 2022 023 dru [facility]/Pharmacy #0693, [address] [facility] [place], [address], 4 09:07:42 prednisone 10 mg tablet 2022 023 [facility]/Pharmacy #0693, [address] [place], [address], 4 10:32:59 levofloxac in 500 mg tablet [address]/Pharmacy #0693, [address] [place], [address], 4 10:32:44 duloxetine 60 mg capsule,de layed release 2022 023 [facility], [address] [facility] [place], [address], 3 10:18:19 prednisone 10 mg tablet 2022 023 [id number] [address] [facility] [place], [address], 4 10:32:59 Zithromax Z-Tim 250 mg tablet 2022 023 [facility], [address] [facility] [place], [address], 3 14:12:12 albuterol sulfate HFA 90 mcg/actuat ion aerosol inhaler 2022 023 [facility] [address] [facility] [place], [address], 4 14:51:15 lorazepam 0.5 mg tablet 2022 023 [facility], [address] [facility] [place], [address], 3 11:51:57 oxybutynin chloride ER 5 mg tablet,ext ended release 24 hr 2022 023 [facility], [address] [place], [address], 4 10:50:31 Patient TargetsNo targets recorded. Patient InstructionsNo instructions recorded. 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 [email or web address] [facility] (Medical Records) [address] [place], [address], 05/31/2023 11:13:40 02/15/20 24 02/15/2024 XR, chest , 1 view No observ ation record ed. [email or web address] [facility] (Medical Records) [address] [place], [address], 02/18/2024 08:30:04 02/16/20 24 02/16/2024 XR, chest , 1 view No observ ation record ed. [email or web address] [facility] (Medical Records) [address] [place], [address], 02/18/2024 08:30:20 10/07/19 25 10/05/2024 XR, chest , 2 view No observ ation record ed. [email or web address] [facility] (Medical Records) [address] [place], [address], 10/07/2024 09:20:31 11/01/19 25 11/01/2024 XR, shoul aleks, 2 or more view No observ ation record ed. [email or web address] [facility] (Medical Records) [address] [place], [address], 11/02/2024 08:33:01 12/29/1912/24/2024 MAMMO , scree guzman, digit al, bilat eral No observ ation record ed. [email or web address] [facility] [address] [place], [address], 12/29/2024 08:15:55 03/30/20 25 03/30/2025 XR, knee, 3 view No observ ation record ed. [email or web address] [facility] (Medical Records) [address] [place], [address], 03/30/2025 10:01:49 03/30/20 25 03/30/2025 XR, knee, 3 view No observ ation record ed. [email or web address] [facility] (Medical Records) [address] [place], [address], 03/30/2025 10:01:50 04/27/20 25 04/27/2025 CT, chest , w/o contr ast No observ ation record ed. [facility] (Medical Records) [address] [place], [address], 04/27/2025 09:36:37 05/06/20 25 05/06/2025 CT, head + brain , w/o contr ast No observ ation record ed. [email or web address] [facility] (Medical Records) [address] [facility] [place], [address], 05/07/2025 08:40:24 05/30/20 25 05/30/2025 CT, chest + abdom en + pelvi s, w/o contr ast No observ ation record ed. [email or web address] [facility] (Medical Records) [address] [facility] [place], [address], 05/31/2025 08:12:45 05/31/20 25 05/31/2025 CT, angio gram, chest , w/ contr ast No observ ation record ed. [email or web address] [facility] (Medical Records) [address] [facility] [place], [address], 05/31/2025 13:24:46 06/28/20 25 06/28/2025 XR, chest , 2 view No observ ation record ed. [facility] (Medical Records) [address] [facility] [place], [address], 06/28/2025 16:59:56 06/28/20 25 06/28/2025 XR, chest , 2 view No observ ation record ed. [facility] (Medical Records) [address] [place], [address], 06/28/2025 17:00:09 07/26/20 25 07/26/2025 XR, chest , 2 view No observ ation record ed. [facility] (Medical Records) [address] [place], [address], 07/26/2025 13:56:16 Result Notes None recorded. Problems Name Problem SNOMED Code Status Onset Date Resolution Date Notes Provider Name and Address Organization Details Recorded Time Asthma 572546453 Active 2017 Stacie mcginnis [facility] Medicine 8 10:31:25 Gastroeso phageal reflux disease 807883819 Active 2017 Stacie mcginnis [facility] Internal Medicine 8 10:31:31 Bipolar disorder 06152443 Active 2017 Otilia Santo NP, S [address] [place] [address], [address], [facility] Medicine 8 10:56:03 Depressiv e disorder 79621352 Active 2017 Otilia Santo NP, S [address] [place] [address], [address], [facility] Medicine 8 10:56:12 Temporoma ndibular joint disorder 43676515 Active 2019 Daljit Irby DO [address] [place] [address], [address], [facility] 0 11:11:51 Carpal tunnel syndrome of right wrist 094016139925 108 Active 2019 Daljit Irby DO [address] [place] [address], [address], [facility] 0 11:12:02 Chronic obstructi ve pulmonary disease 56502797 Active 2021 Daljit Irby, DO [address] [place] [address], [address], [facility] 2 10:56:45 Multiple gastric ulcers 575923378 Active 2021 Daljit Irby, DO [address] [place] [address], [address], [facility] 2 10:57:21 Insomnia 202180550 Active 2021 Daljit Irby, DO [address] [place] [address], [address], [facility] 2 10:59:47 Panic disorder 970886009 Active 2021 Daljit Irby, DO [address] [place] [address], [address], [facility] 2 11:01:07 Moderate recurrent major depressio n 27971911 Active 2021 TANNER LOCKE [address] [place] [address], [address], [facility] 2 11:43:50 Anxiety 64773471 Active 2021 TANNER LOCKE [address] [place] [address], [address], [facility] 2 12:22:43 Melena 6866376 Active 2021 TANNER LOCKE [address] [place] [address], [address], [facility] 2 10:33:58 Cobalamin deficienc y 509865733 Active 2021 TANNER LOCKE [address] [place] [address], [address], [facility] 2 10:34:46 Iron deficienc y anemia 15315023 Active 2021 TANNER LOCKE [address] [place] [address], [address], [facility] 2 12:03:20 Injury of knee 689079890 Active 2022 TANNER LOCKE [address] [place], [address], [facility] 3 13:56:04 Injury of knee 398190299 Active 2022 TANNER LOCKE [address] [place], [address], [facility] 3 13:56:09 Swelling of knee joint 970135583 Active 2022 TANNER LOCKE [address] [place] [address], [address], [facility] 3 13:57:51 Infected bursa 485210170 Active 2022 TANNER LOCKE [address] [place] [address], [address], [facility] 3 10:28:39 Hematoma of right lower leg 067773391324 98936 Active 2022 TANNER LOCKE [address] [place] [address], [address], [facility] 3 10:29:45 Prepatell ar bursitis of right knee 650898470138 100 Active 2022 Daljit Irby, DO [address] [place] [address], [address], [facility] 3 14:11:50 Infection of prepatell ar bursa of right knee 424294015479 9105 Active 2022 Daljit Irby, DO [address] [place] [address], [address], [facility] 3 14:12:07 Exacerbat ion of moderate persisten t asthma 705566578 Active 2022 TANNER LOCKE [address] [place] [address], [address], [facility] 3 11:47:09 Urinary incontine nce 490127199 Active 2022 TANNER LOCKE [address] [place], [address], [facility] 3 11:48:56 Acute bronchiti s with bronchosp asm 49760475 Active 2022 TANNER LOCKE [address] [place], [address], [facility] 3 10:18:40 Smoker 05340059 Active 2022 TANNER LOCKE [address] [place], [address], [facility] 3 10:20:27 Pneumonia 508843693 Active 2022 TANNER LOCKE [address] [place], [address], [facility] 5 10:14:28 Tardive dyskinesi a 673705799 Active 2023 TANNER LOCKE [address] [place] [address], [address], [facility] 4 09:52:31 Hyperlipi demia 79145225 Active 2023 TANNER LOCKE [address] [place] [address], [address], [facility] 4 10:52:48 Dyspnea 839553939 Active 2023 TANNER LOCKE [address] [place] [address], [address], [facility] 4 10:54:03 Acute respirato ry failure 28883124 Active 2023 TANNER LOCKE [address] [place] [address], [address], [facility] 4 15:06:47 Mood disorder 79180233 Active 2023 TANNER LOCKE [address] [place] [address], [address], [facility] 4 15:11:46 Acute bronchiti s 49926493 Active 2024 TANNER LOCKE [address] [place], [address], [facility] 5 10:23:01 Pain of knee region 2320742094 Active 2024 TANNER LOCKE [address] [place], [address], [facility] 5 09:35:43 Increased frequency of urination 646443214 Active 2024 TANNER LOCKE [address] [place], [address], [facility] Medicine 5 09:38:11 Bilateral lower limb edema 838346737 Active 2024 TANNER LOCKE [address] [place], [address], [facility] 5 09:38:54 Basal cell carcinoma of upper eyelid 439213302 Active 2024 TANNER LOCKE [address] [place], [address], [facility] 5 09:43:50 Acute exacerbat ion of chronic obstructi ve pulmonary disease 154115752 Active 2024 TANNER LOCKE [address] [place], [address], [facility] 5 09:54:53 Problem Notes None recorded. Procedures Surgical History Date Name Laterality Status Provider Name and Address Organization Details Recorded Time 5 Most Recent Mammogram completed Patsy Estrada [facility] 12/29/2024 08:15:39 5 Colonoscopy completed Itzel Currie [facility] 10/05/2019 11:11:27 Imaging Results None [...] mg tablet TAKE 1 TABLET BY MOUTH EVERYDAY AT BEDTIME active Not Available Not Available No t Available cyclobenzap rine 10 mg tablet TAKE 1 TABLET ORALLY 3 TIMES A DAY NEEDED FOR MUSCLE SPASM active Not Available Not Available No t Available acetaminoph en 325 mg tablet TAKE 2 TABLETS BY MOUTH EVERY 6 HOURS 02/09 completed Not Available Not Available Not Available prednisone 10 mg tablet PLEASE SEE ATTACHED FOR DETAILED DIRECTION S active Not Available Not Available No t Available doxycycline hyclate 100 mg capsule TAKE 1 CAPSULE BY MOUTH TWICE A DAY FOR 7 DAYS active Not Available Not Available No t Available benztropine 0.5 mg tablet TAKE 1 [...] solution for nebulizatio n INHALE 3 ML VIA NEBULIZER 3 TIMES A DAY FOR 30 DAYS. active Not Available Not Available No t [...] Not Available prednisone 20 mg tablet TAKE 2 TABLETS BY MOUTH EVERY DAY FOR 3 DAYS. START 07/03 AND FINISH 07/05 active Not Available Not Available No t Available metronidazo le 500 mg tablet TAKE 1 TABLET BY MOUTH EVERY 8 HOURS active Not Available Not Available No t [...] TAKE 1 TABLET BY MOUTH EVERY DAY 2024 active Not Available Not Available Not Avai lable cefuroxime axetil 500 mg tablet TAKE 1 TABLET BY MOUTH TWICE A DAY active Not Available Not Available No t Available levofloxaci n 500 mg tablet TAKE 1 TABLET EVERY 24 HOURS BY ORAL ROUTE FOR 12 DAYS 02/09 completed Not Available Not Available Not Available albuterol sulfate HFA 90 mcg/actuati on aerosol inhaler INHALE 2 PUFFS INTO THE LUNGS EVERY 4 HOURS NEEDED. active Not Available Not Available No t Available doxycycline hyclate 100 mg tablet Take 1 tablet twice a day by oral route for 10 days. 07/12 completed Not Available Not Available Not Available naproxen 500 mg tablet TAKE 1 TABLET ORALLY 2 TIMES A DAY NEEDED FOR BACK PAIN active Not Available Not Available No t Available amoxicillin 875 mg-potassiu m clavulanate 125 mg tablet TAKE 1 TABLET BY MOUTH TWICE A DAY WITH MEALS. START EVENING OF 07/02 AND END EVENING OF 07/05 active Not Available Not Available No t [...] Available Not Available Not Available ferrous sulfate 324 mg (65 mg iron) tablet,roxy yed release TAKE 1 TABLET BY MOUTH DAILY active Not Available Not Available No t Available ferrous fumarate 325 mg (106 mg [...] completed Not Available Not Available Not Available mirabegron ER 25 mg tablet,exte nded release 24 hr TAKE [...] Updated DateTime 4 157.48 cm 29.2 kg/m2 95670.4 2 g 111 /min 98 % 98 % 134/84 mm[Hg] Patsy Estrada [facility] 4 10:35:07 Date Recorded Body height Body mass index (BMI) Body weight Heart rate Oxygen saturation Oxygen saturation in Arterial blood by Pulse oximetry Systolic And Diastolic Provider Name and Address Organization Details Last Updated DateTime 3 157.48 cm 35.8 kg/m2 67421.1 g 86 /min 92 % 92 % 148/80 mm[Hg] Court De La Rosa [facility] Medicine 3 11:32:57 Date Recorded Body height Body mass index (BMI) Body weight Systolic And Diastolic Provider Name and Address Organization Details Last Updated DateTime 03/02/2024 157.48 cm 29.8 kg/m2 24176.56 g 128/80 mm[Hg] Court De La Rosa [facility] 03/02/2024 14:46:35 Date Recorded Oxygen saturation Oxygen saturation in Arterial blood by Pulse oximetry Provider Name and Address Organization Details Last Updated DateTime 03/17/2025 87 % 87 % Daljit Irby, DO [address] [facility], [place], [address], [facility] 04/20/2025 15:14:45 Date Recorded Oxygen saturation Oxygen saturation in Arterial blood by Pulse oximetry Heart rate Systolic And Diastolic Provider Name and Address Organization Details Last Updated DateTime 03/17/2025 93 % 93 % 68 /min 110/74 mm[Hg] Shellie Ibarra [facility] 5 09:26:23 Date Recorded Body height Body mass index (BMI) Body weight Heart rate Oxygen saturation Oxygen saturation in Arterial blood by Pulse oximetry Systolic And Diastolic Provider Name and Address Organization Details Last Updated DateTime 3 157.48 cm 35.8 kg/m2 59479.1 g 94 /min 92 % 92 % 138/80 mm[Hg] Court De La Rosa [facility] Internal Medicine 3 10:09:27 Social History Question Answer Notes LastModified by Organizat ion Details LastModified Time Tobacco Smoking Status Current Every Day Smoker Not Available [facility] 07/26/2020 03:36:23 What Was The Date Of Your Most Recent Tobacco Screening? 03/02/2024 [email or web address] Information not available 03/02/2024 How Much Tobacco Do You Smoke? 1 PPD 5/6 Per Day [email or web address] Information not available 03/17/2025 Sex: Unknown Functional Status Question Answer Note LastModified by Organization D etails LastModified Time Do you or have you ever used any other forms of tobacco or nicotine? No [email or web address] Information not available 05/24/2023 Mental Status None recorded. Family History Nothing Reported. Medical History No medical history recorded. Gynecological History Statement/Question Response Most Recent Mammogram 12/24/2024 Obstetrics History GPAL:G 0 P 0 0 0 0 Immunizations Vaccine Type Date Status Note Provider Nam e and Address Organization Details Recorded Time COVID-19 vaccine, vector-nr, rS-Ad26, PF, 0.5 mL 01/28/2021 completed Jennifer mcginnis [facility] Internal [facility] 03/06/2022 08:36:41 Past Encounters Encounter ID Performer Location Encounter Start Date Encounter Closed Date Diagnosis/Indication Diagnosis SNOMED-CT Code Diagnosis ICD10 Code Diagnosis IMO Codes Diagnosis Note [id number] Daljit Irby [facility] [address] [facility], [place] [facility] [place] [address] 03/19/2018 10:27:43 03/19/2018 16:04:47 Acute bronchitis 40387317 J20.9 Tobacco de pendence syndrome 51015081 F17.200 [id number] Daljit Yady Irby [facility] [address] [facility], [place] [facility] [place] [address] 07/11/2018 11:15:15 07/11/2018 13:37:08 Asthma 655822008 J45.909 worse with this infection so will need pred taper Pneumonia 673693314 J18. 9 treated with abx [id number] Daljit Irby [facility] Internal [facility] [address] [facility], [address] [facility] [place] [address] 10/05/2019 11:00:17 10/05/2019 11:21:04 Asthma 762215327 J45.909 has been stable and is ok here Carpal jonathan shoaib syndrome of right wrist 5103292447 43426 G56.01 will cont the ibuprof Temporoman dibular joint disorder 12684241 M26.609 will cont the ibuprof Screening mammography 24 005276 Z12.31 Adult heal th examination 166861377 Z00.00 Tobacco de pendence syndrome 69435794 F17.200 [id number] Daljit Yady Irby [facility] [address] [facility],[place] [address] 12/20/2021 10:25:58 12/20/2021 13:56:24 Chronic obstructive pulmonary disease 33230872 J44.9 we are going to begin her on trelegy will follow up in a few weeks samples of 200mg dose given Gastroesop hageal reflux disease 836815289 K21.9 seems stable Depressive disorder 2827 9007 F32.A follows her psychiatri st Multiple g astric ulcers 934200781 K25.9 had a signif icant bleed with hgb down to 7 we will order cbc and rechj uin 1 month Insomnia 655160680 G47.0 0 Panic disorder 653765643 F41.0 we will provide temporary lorazepam [id number] Daljit Irby [facility] [address] [facility] [place] [address] 12/27/2021 11:18:02 01/01/2022 08:30:58 Insomnia 238129740 G47.09 will fu if still having issues picking Moderate r ecurrent major depression 04147881 F33.1 will start on sertraline and resubmit seroquel dosage [id number] Daljit Irby [facility] [address] [facility] [place] [address] 12/29/2021 10:30:37 01/01/2022 12:14:24 Bipolar disorder 94943766 F31.0 stable Depressive disorder 3548 9007 F32.0 improved Anxiety 17838927 F41.1 improved [id number] Daljit Irby [facility] [address] [facility] [place] [address] 01/19/2022 11:02:49 01/19/2022 11:47:03 Active or passive immunization 003582537 Z23 will consider shingles and Tdap Panic disorder 684810151 F41.0 lorazepam was not too helpful Chronic ob structive pulmonary disease 02874372 J44.9 we are going to begin her on trelegy will follow up in a few weeks samples of 200mg dose givenseems to be helping she is breathing better Anxiety 87008101 F41.9 as above she is doing ok overall and id feeling betterwe discussed the poss of new med for the bipolar she will need to sidcuss with her psych (caplyta) Temporoman dibular joint disorder [id number] M26.609 will cont the ibuprof [id number] Daljit Irby [facility] [address] [facility] [place] [address] 03/23/2022 08:40:47 03/23/2022 14:10:34 Melena 2654612 K92.1 will start work up for melena Cobalamin deficiency 190 528065 E53.8 needs refill Insomnia 570186515 G47.0 9 stable on medication Moderate r ecurrent major depression 18181056 F33.1 refill Gastroesop hageal reflux disease 076465825 K21.00 increase to 40 mg of omeprazole until source of bleed can be determined [id number] Daljit Irby [facility] [address] [facility] [place] [address] 07/25/2022 08:54:50 07/25/2022 12:22:55 Asthma 997071277 J45.40 will start on neb with solution Moderate r ecurrent major depression 96105392 F33.1 refill needed Insomnia 565521625 G47.0 9 stable on medication Iron defic iency anemia 73936670 D50.0 will refill for patientdid call it in but haven't gotten a refill request yet [id number] Daljit Irby [facility] [address] [facility],[place] [employer] [address] 10/10/2022 13:26:14 10/10/2022 16:09:00 Injury of knee 909799672 S89.91XA will fu with repeat XR in two weeks Swelling o f knee joint 993130588 M25.462 will start dual treatment with pred and tramadol Chronic ob structive pulmonary disease 50200507 J41.8 given samplestre legy works really well for her [id number] Daljit Irby [facility] [address] [facility],[place] [address] 10/15/2022 14:34:37 10/15/2022 16:06:12 Injury of knee 645865751 S89.91XA still too much swelling US knee Swelling o f knee joint 648739056 M25.462 severe swellingun able to drain any fluid off the patientjus t bleeding Chronic ob structive pulmonary disease 50154724 J41.8 given samplestre legy works really well for her [id number] Daljit Irby [facility] [address] [facility],[place] [employer] [place] [address] 11/30/2022 13:40:24 11/30/2022 15:58:43 Moderate recurrent major depression 61556583 F33.1 as noted no major changes Screening mammography 24 225052 Z12.31 Prepatella r bursitis of right knee 2143267990 62604 M70.41 MUST be seen by a competent ortho Infection of prepatellar bursa of right knee 8851928112 072516 M71.161 appears now to have a superficia l cellulitic appearance now spreading [id number] Daljit Irby [facility] [address] [facility],[place] [address] 02/25/2023 11:05:10 02/25/2023 13:13:36 Asthma 771694968 J45.40 will start on neb with solution Exacerbati on of moderate persistent asthma 404697900 J45.41 will start on standard treatment Moderate r ecurrent major depression 55226374 F33.1 refill needed Urinary incontinence 165 088652 N39.42 [id number] Daljit Irby [facility] [address] [facility],[place] [address] 05/24/2023 10:06:01 05/24/2023 11:27:12 Depressive disorder 92325135 F32.0 stable Acute bron chitis with bronchospasm 90380317 J20.9 will set up with prednisone + levoCOVID test negative Smoker 64544099 F17.200 will start on wellbutrin for smoking [id number] Daljit Irby [facility] [address] [facility],[place] [address] 02/10/2024 10:22:57 02/10/2024 14:11:54 Urinary incontinence 658707710 N39.42 will switch out medication and fu with kidney and urine check Depression screening 171 487504 Z13.31 negative score Cobalamin deficiency 190 059418 E53.8 needs refill Iron defic iency anemia 69913163 D50.0 will refill for patientdid call it in but haven't gotten a refill request yet Hyperlipidemia 17364783 E78.2 will set up with recheck blood work Chronic ob structive pulmonary disease 39947904 J41.8 given samplestre legy works really well for her Dyspnea 161998257 R06.00 will set up with pred taper [id number] Daljit Irby DO [facility] [address] [facility],[place] [address] 03/02/2024 14:34:00 03/03/2024 14:25:12 Depressive disorder 64236240 F32.0 F33.1 stable Mood disorder 10325698 F 31.0 stable Acute resp iratory failure 90217219 J96.00 stable Chronic ob structive pulmonary disease 61809362 J44.1 will f/u with pulm for evalordere d the PFT per pulm [id number] Daljit Irby DO [facility] [address] [facility],[place] [address] 03/17/2025 09:13:58 03/17/2025 10:24:07 Pain of knee region 1032157108 M25.561 M25.562 26380481 still too much swelling US knee Increased frequency of urination 969519974 R35.0 82103 Bilateral lower limb edema 023936984 R60.0 1631394655 will set up with lab work Cobalamin deficiency 190 730797 E53.8 needs recheck blood work Iron defic iency anemia 05190912 D50.0 needs recheck BW Basal cell carcinoma of upper eyelid 193250597 C44.1121 [id number] will set up with derm for evaluation Health Concerns Section Related Observation LastModified by Organization Detai ls LastModified Time None Recorded Concern Status LastModified by Organization Details LastModified Time None Recorded Advance Directives Directive None Recorded Payers Insurance Date Sequence Insurance Name Policy Number Policy Chairez Covered Member ID Chairez Member ID Guarantor Name 04/06/2025 PAYMENT PLAN Lissette Sanches 03/17/2025 1 [place] [employer] PRIOR TO 12/22/2022 - [facility] (MEDICAID) Lissette Sanches [id number] Lissette Sanches 03/17/2025 1 [facility] [id number] Lissette Sanches [id number] Lissette Sanches 03/17/2025 1 [place] [facility] Lissette Sanches [id number] Lissette Sanches 12/20/2021 1 *SELF PAY* Ba gilberto Sanches 07/06/2025 1 [employer] (EPO) [id number] Lissette Sanches [id number] Lissette Sanches Notes Date Note Type Note Provider Name and Address Organization Details Recorded Time 3 text/html ROS as noted in the HPI c/o asthma exacerbation pt still smoking no [...] if it is effective [facility] [address] [place], [address], [facility] 02/25/2023 11:58:55 3 text/html ROS as noted in the HPI c/o pneumonia patient has hx of smokingrecurrent pneumonia, hx of COPDhaving exacerbation with probable bronchitis start on steriods and abx cont inhalers at home [facility] [address] [place], [address], [facility] 05/24/2023 10:31:11 4 text/html ROS as noted in the HPI c/o bladder issues patient is having more [...] given order for it [facility] [address] [place], [address], [facility] 02/10/2024 11:01:05 4 text/html ROS as noted in the HPI hospital d/c the patient has been doing [...] using her inhalers correctly [facility] [address] [place], [address], [employer] [facility] [employer] 03/02/2024 15:15:46 5 text/html ROS as noted in the HPI f/u medications the patient has bilateral knee [...] lab work done to check her levels Daljit Irby DO [address] [place], [address], [facility] 04/20/2025 15:15:30 OBGyn Episode No OBEpisode recorded.
== END 2025-07-26 11:10 | disposition home or self-care (01) ==
LOC: HO.XRAY 11:09
PROVIDERS: PCP Internal Medicine; Visit Provider Nurse Practitioner Family
DX: Z87.01 Personal history of pneumonia (recurrent) (principal)
CPT/HCPCS: 71046

== ENCOUNTER → 2025-07-26 11:12 | Outpatient (BNV) | payer OTHER, SELFPAY | PROVIDERS: PCP Internal Medicine; Visit Provider Radiology Diagnostic Radiology | DX: J84.89 Other specified interstitial pulmonary diseases (principal); J98.11 Atelectasis | CPT/HCPCS: 71046 ==

== ENCOUNTER 2025-08-15 10:29 | Emergency (ER) | payer OTHER, SELFPAY ==
--- NOTE | ~2025-08-15 | XR_ITS ---
CLINICAL HISTORY: SOB 1 view chest Comparison: CR/SR - XR CHEST 2 VIEWS - 07/26/25 11:24 EST Findings: Cardiac and mediastinal contours are stable. Mild interstitial prominence with scattered peribronchial thickening. No focal consolidation. No effusion. No pneumothorax. No acute osseous finding. Impression: Mild interstitial prominence with scattered peribronchial thickening. No focal consolidation. Findings are similar to prior. This document has been electronically signed by: Hayden Jeong MD on 08/15/2025 11:37:22
[2025-08-15 10:44] VITALS: BP 136/70; BP 137/90; PULSE 104; PULSE 107; RESP 27; TEMP 37; O2SAT 88; O2SAT 91; BMI 42.5
[2025-08-15 10:57] VITALS: PULSE 106; RESP 24; O2SAT 88
[2025-08-15] MEDS: Albuterol Sulfate 5 MG, Albuterol/Iprat 2.5/0.5MG 3 ML 3 ML INHALE ×2 (10:57→13:41)
--- OUTSIDE RECORDS SUMMARY | 2025-08-15 11:02 | XMS_ITS | Data Portability ---
Author Organization [facility], Telehealth Patient Home Address [address] [place] [address] Assessment No assessment recorded. Plan of Treatment Reminders Order Date Submit Date Provider Last Modified By Organization Details Last Modified Time Details Appointments None recorded. Lab uric acid, serum or plasma 2024 025 [facility], [address] [place] [address], [address], 09:43:02 urinalysis complete, reflex culture 2024 025 [facility], [address] [place] [address], [address], 09:43:01 hemoglobin A1c, QN, blood 2024 025 [facility], [address] [place] [address], [address], 09:43:02 vitamin B12 + folate, serum or blood 2024 025 [facility], [address] [place] [address], [address], 5 09:43:02 iron + TIBC + ferritin, serum 2024 025 [facility], [address] [place] [address], [address], 09:43:01 CMP, serum or plasma 2024 025 [facility], [address] [place] [address], [address], 5 09:43:01 CBC w/ auto diff 2024 025 [facility], [address] [place] [address], [address], 5 09:43:01 magnesium, serum or plasma 2024 025 [facility], [address] [place] [address], [address], 5 09:43:01 ESR (erythrocy te sedimentat ion rate), blood 2024 025 [facility], [address] [place] [address], [address], 5 09:43:02 C-reactive protein, quantitati ve, serum or plasma 2024 025 [facility], [address] [place] [address], [address], 5 09:43:02 TSH + free T4, serum 2024 025 [facility], [address] [place] [address], [address], 5 09:43:02 lipid panel, serum 2023 024 [facility], [address] [place] [address], [address], 4 11:05:54 CBC w/ auto diff 2023 024 [facility], [address] [place] [address], [address], 4 11:05:54 CMP, serum or plasma 2023 024 [facility], [address] [place] [address], [address], 4 11:22:06 urinalysis complete, reflex culture 2023 024 [facility], [address] [place] [address], [address], 4 11:01:07 iron + TIBC + ferritin, serum 2023 024 [facility], [address] [place] [address], [address], 4 11:05:54 vitamin B12 + folate, serum or blood 2023 024 [facility], [address] [place] [address], [address], 4 11:05:54 homocystei ne, serum or plasma 2023 024 [facility], [address] [place] [address], [place], [address], 4 11:17:29 TSH + free T4, serum 2023 024 [facility], [address] [place] [address], [address], 4 11:06:30 Referral dermatolog ist referral 2024 025 [email or web address] 10 [facility], [address] [place] [address], [address], 5 10:01:06 pulmonolog ist referral 2023 024 [email or web address] Supa Sullivan MD, [address] [place] [address] [place], [address], 4 14:25:12 Procedures None recorded. Surgeries None recorded. Imaging XR, knee, 3 view 2024 025 [facility] (Imaging), [address] [place], [address], 5 08:31:09 PFT, complete - [id number] 03/04/24-09/16 024 [facility], [address] [place], [address], 4 08:41:34 XR, chest, 2 view 2022 023 [facility] (Imaging), [address] [place], [address], 3 08:40:25 Medication Orders Myrbetriq 25 mg tablet,ext ended release 2023 024 [id number] [address] [facility] [place], [address], 4 10:54:00 prednisone 10 mg tablet 2023 024 [facility] [address] [facility] [place], [address], 4 10:54:41 Wellbutrin XL 150 mg 24 hr tablet, extended release 2022 023 dru [facility]acy #0693, [address] [facility] [place], [address], 4 09:07:42 prednisone 10 mg tablet 2022 023 [email or web address]acy #0693, [address] [place], [address], 4 10:32:59 levofloxac in 500 mg tablet [address]/Pharmacy #0693, [address] [place], [address], 4 10:32:44 duloxetine 60 mg capsule,de layed release 2022 023 [facility] [address] [facility] [place], [address], 3 10:18:19 prednisone 10 mg tablet 2022 023 [email or web address] [facility] [address] [facility] [place], [address], 4 10:32:59 Zithromax Z-Tim 250 mg tablet 2022 023 [facility] [address] [facility] [place], [address], 3 14:12:12 albuterol sulfate HFA 90 mcg/actuat ion aerosol inhaler 2022 023 [email or web address] [address] [facility] [place], [address], 4 14:51:15 lorazepam 0.5 mg tablet 2022 023 [facility] [address] [facility] [place], [address], 3 11:51:57 oxybutynin chloride ER 5 mg tablet,ext ended release 24 hr 2022 023 [facility] [address] [place], [address], 4 10:50:31 Patient TargetsNo targets recorded. Patient InstructionsNo instructions recorded. 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 [email or web address] [facility] (Medical Records) [address] [place], [address], 05/31/2023 11:13:40 02/15/20 24 02/15/2024 XR, chest , 1 view No observ ation record ed. [email or web address] [facility] (Medical Records) [address] [place], [address], 02/18/2024 08:30:04 02/16/20 24 02/16/2024 XR, chest , 1 view No observ ation record ed. [email or web address] (Medical Records) [address] [place], [address], 02/18/2024 08:30:20 10/07/19 25 10/05/2024 XR, chest , 2 view No observ ation record ed. [email or web address] [facility] (Medical Records) [address] [place], [address], 10/07/2024 09:20:31 11/01/19 25 11/01/2024 XR, shoul aleks, 2 or more view No observ ation record ed. [email or web address] [facility] (Medical Records) [address] [place], [address], 11/02/2024 08:33:01 12/29/1912/24/2024 MAMMO , scree guzman, digit al, bilat eral No observ ation record ed. [email or web address] [facility] [address] [place], [address], 12/29/2024 08:15:55 03/30/20 25 03/30/2025 XR, knee, 3 view No observ ation record ed. [email or web address] [facility] (Medical Records) [address] [place], [address], 03/30/2025 10:01:49 03/30/20 25 03/30/2025 XR, knee, 3 view No observ ation record ed. [email or web address] [facility] (Medical Records) [address] [place], [address], 03/30/2025 10:01:50 04/27/20 25 04/27/2025 CT, chest , w/o contr ast No observ ation record ed. [facility] (Medical Records) [address] [place], [address], 04/27/2025 09:36:37 05/06/20 25 05/06/2025 CT, head + brain , w/o contr ast No observ ation record ed. [email or web address] [facility] (Medical Records) [address] [place], [address], 05/07/2025 08:40:24 05/30/20 25 05/30/2025 CT, chest + abdom en + pelvi s, w/o contr ast No observ ation record ed. [email or web address] [facility] (Medical Records) [address] [place], [address], 05/31/2025 08:12:45 05/31/20 25 05/31/2025 CT, angio gram, chest , w/ contr ast No observ ation record ed. [email or web address] [facility] (Medical Records) [address] [place], [address], 05/31/2025 13:24:46 06/28/20 25 06/28/2025 XR, chest , 2 view No observ ation record ed. [facility] (Medical Records) [address] [place], [address], 06/28/2025 16:59:56 06/28/20 25 06/28/2025 XR, chest , 2 view No observ ation record ed. [facility] (Medical Records) [address] [place], [address], 06/28/2025 17:00:09 07/26/20 25 07/26/2025 XR, chest , 2 view No observ ation record ed. [facility] (Medical Records) [address] [place], [address], 07/26/2025 13:56:16 Result Notes None recorded. Problems Name Problem SNOMED Code Status Onset Date Resolution Date Notes Provider Name and Address Organization Details Recorded Time Asthma 062287389 Active 2017 Stacie mcginnis [facility] Medicine 8 10:31:25 Gastroeso phageal reflux disease 255410151 Active 2017 Stacie mcginnis [facility] Medicine 8 10:31:31 Bipolar disorder 72930197 Active 2017 Otilia Santo NP, S [address] [place] [address], [address], [facility] Medicine 8 10:56:03 Depressiv e disorder 03127229 Active 2017 Otilia Santo NP, S [address] [place] [address], [address], [facility] Medicine 8 10:56:12 Temporoma ndibular joint disorder 66789549 Active 2019 Daljit Irby DO [address] [place] [address], [address], [facility] Medicine 0 11:11:51 Carpal tunnel syndrome of right wrist 873102231163 108 Active 2019 Daljit Irby DO [address] [place] [address], [address], [facility] Medicine 0 11:12:02 Chronic obstructi ve pulmonary disease 26486417 Active 2021 Daljit Irby, DO [address] [place] [address], [address], [facility] Medicine 2 10:56:45 Multiple gastric ulcers 066320595 Active 2021 Daljit Irby, DO [address] [place] [address], [address], [facility] Medicine 2 10:57:21 Insomnia 823402223 Active 2021 Daljit Irby, DO [address] [place] [address], [address], [facility] 2 10:59:47 Panic disorder 077259976 Active 2021 Daljit Irby, DO [address] [place] [address], [address], [facility] Medicine 2 11:01:07 Moderate recurrent major depressio n 20510070 Active 2021 TANNER LOCKE [address] [place] [address], [address], [facility] Medicine 2 11:43:50 Anxiety 36306913 Active 2021 TANNER LOCKE [address] [place] [address], [address], [facility] 2 12:22:43 Melena 4212741 Active 2021 TANNER LOCKE [address] [place] [address], [address], [facility] 2 10:33:58 Cobalamin deficienc y 102665042 Active 2021 TANNER LOCKE [address] [place] [address], [address], [facility] Medicine 2 10:34:46 Iron deficienc y anemia 10815764 Active 2021 TANNER LOCKE [address] [place] [address], [address], [facility] Medicine 2 12:03:20 Injury of knee 932429179 Active 2022 TANNER LOCKE [address] [place], [address], [facility] Medicine 3 13:56:04 Injury of knee 030322910 Active 2022 TANNER LOCKE [address] [place], [address], [facility] 3 13:56:09 Swelling of knee joint 326290530 Active 2022 TANNER LOCKE [address] [place] [address], [address], [facility] 3 13:57:51 Infected bursa 671863843 Active 2022 TANNER LOCKE [address] [place] [address], [address], [facility] 3 10:28:39 Hematoma of right lower leg 592018100708 81453 Active 2022 TANNER LOCKE [address] [place] [address], [address], [facility] 3 10:29:45 Prepatell ar bursitis of right knee 878320438482 100 Active 2022 Daljit Irby, DO [address] [place] [address], [address], [facility] 3 14:11:50 Infection of prepatell ar bursa of right knee 245181587042 9105 Active 2022 Daljit Irby, DO [address] [place] [address], [address], [facility] 3 14:12:07 Exacerbat ion of moderate persisten t asthma 134178722 Active 2022 TANNER LOCKE [address] [place] [address], [address], [facility] 3 11:47:09 Urinary incontine nce 796502640 Active 2022 TANNER [address]KE [address] [place], [address], [facility] 3 11:48:56 Acute bronchiti s with bronchosp asm 36120115 Active 2022 TANNER LOCKE [address] [place], [address], [facility] 3 10:18:40 Smoker 47657150 Active 2022 TANNER LOCKE [address] [place], [address], [facility] 3 10:20:27 Pneumonia 760980144 Active 2022 TANNER LOCKE [address] [place], [address], [facility] 5 10:14:28 Tardive dyskinesi a 627825263 Active 2023 TANNER LOCKE [address] [place] [address], [address], [facility] 4 09:52:31 Hyperlipi demia 85209044 Active 2023 TANNER LOCKE [address] [place] [address], [address], [facility] 4 10:52:48 Dyspnea 751898349 Active 2023 TANNER LOCKE [address] [place] [address], [address], [facility] 4 10:54:03 Acute respirato ry failure 74655924 Active 2023 TANNER LOCKE [address] [place] [address], [address], [facility] 4 15:06:47 Mood disorder 44020692 Active 2023 TANNER LOCKE [address] [place] [address], [address], [facility] 4 15:11:46 Acute bronchiti s 28493105 Active 2024 TANNER LOCKE [address] [place], [address], [facility] 5 10:23:01 Pain of knee region 5360617613 Active 2024 TANNER LOCKE [address] [place], [address], [facility] 5 09:35:43 Increased frequency of urination 685257503 Active 2024 TANNER LOCKE [address] [place], [address], [facility] Medicine 5 09:38:11 Bilateral lower limb edema 101914775 Active 2024 TANNER LOCKE [address] [place], [address], [facility] 5 09:38:54 Basal cell carcinoma of upper eyelid 414593122 Active 2024 TANNER LOCKE [address] [place], [address], [facility] 5 09:43:50 Acute exacerbat ion of chronic obstructi ve pulmonary disease 897853740 Active 2024 TANNER LOCKE [address] [place], [address], [facility] 5 11:11:14 Problem Notes None recorded. Procedures Surgical History Date Name Laterality Status Provider Name and Address Organization Details Recorded Time 5 Most Recent Mammogram completed Patsy Estrada [facility] Medicine 12/29/2024 08:15:39 5 Colonoscopy completed Itzel Currie [facility] Medicine 10/05/2019 11:11:27 Imaging Results [...] t Available doxycycline hyclate 100 mg tablet TAKE 1 TABLET BY MOUTH TWICE A DAY FOR 10 DAYS active Not Available Not Available No t Available naproxen 500 mg tablet TAKE 1 [...] (BMI) Body weight Heart rate Oxygen saturation Systolic And Diastolic Provider Name and Address Organization Details Last Updated DateTime 4 157.48 cm 29.2 kg/m2 58293.4 2 g 111 /min 98 % 134/84 mm[Hg] Patsy Estrada [facility] Internal Medicine 4 10:35:07 Date Recorded Body height Body mass index (BMI) Body weight Heart rate Oxygen saturation Systolic And Diastolic Provider Name and Address Organization Details Last Updated DateTime 3 157.48 cm 35.8 kg/m2 24433.1 g 86 /min 92 % 148/80 mm[Hg] Court De La Rosa [facility] Internal Medicine 3 11:32:57 Date Recorded Body height Body mass index (BMI) Body weight Systolic And Diastolic Provider Name and Address Organization Details Last Updated DateTime 03/02/2024 157.48 cm 29.8 kg/m2 29165.56 g 128/80 mm[Hg] Court De La Rosa [facility] Medicine 03/02/2024 14:46:35 Date Recorded Oxygen saturation Provider Name and Address Organization Details Last Updated DateTime 03/17/2025 87 % Manan Bosch O [address] [place], [address], [facility] Medicine 04/20/2025 15:14:45 Date Recorded Oxygen saturation Heart rate Systolic And Diastolic Provider Name and Address Organization Details Last Updated DateTime 03/17/2025 93 % 68 /min 110/74 mm[Hg] SVITLANA MCDANIELSBERONICA [facility] Internal Medicine 03/17/2025 09:26:23 Date Recorded Body height Body mass index (BMI) Body weight Heart rate Oxygen saturation Systolic And Diastolic Provider Name and Address Organization Details Last Updated DateTime 3 157.48 cm 35.8 kg/m2 67210.1 g 94 /min 92 % 138/80 mm[Hg] Court Choudharymond [facility] Medicine 3 10:09:27 Social History Question Answer Notes LastModified by Organizat ion Details LastModified Time Tobacco Smoking Status Current Every Day Smoker Not Available [facility] 07/26/2020 03:36:23 What Was The Date Of Your Most Recent Tobacco Screening? 03/02/2024 [email or web address] Information not available 03/02/2024 How Much Tobacco Do You Smoke? 1 PPD 5/6 Per Day [email or web address] Information not available 03/17/2025 Sex: Unknown Functional Status Question Answer Note LastModified by Organization D etails LastModified Time Do you or have you ever used any other forms of tobacco or nicotine? No [email or web address] Information not available 05/24/2023 Mental Status None recorded. Family History Nothing Reported. Medical History No medical history recorded. Gynecological History Statement/Question Response Most Recent Mammogram 12/24/2024 Obstetrics History GPAL:G 0 P 0 0 0 0 Immunizations Vaccine Type Date Status Note Provider Nam e and Address Organization Details Recorded Time COVID-19 vaccine, vector-nr, rS-Ad26, PF, 0.5 mL 01/28/2021 completed Jennifer mcginnis [facility] Internal [facility] 03/06/2022 08:36:41 Past Encounters Encounter ID Performer Location Encounter Start Date Encounter Closed Date Diagnosis/Indication Diagnosis SNOMED-CT Code Diagnosis ICD10 Code Diagnosis IMO Codes Diagnosis Note [id number] Daljit Irby DO [facility] Internal Medicine [address] [facility] [address] [address] 03/19/2018 10:27:43 03/19/2018 16:04:47 Acute bronchitis 63373119 J20.9 Tobacco de pendence syndrome 12608771 F17.200 [id number] Daljit Irby [facility] Internal Medicine [address] [facility],[address] [address] 07/11/2018 11:15:15 07/11/2018 13:37:08 Asthma 685944390 J45.909 worse with this infection so will need pred taper Pneumonia 942692212 J18. 9 treated with abx [id number] Daljit Irby [facility] Internal Medicine [address] [facility],[place] [address] 10/05/2019 11:00:17 10/05/2019 11:21:04 Asthma 110193413 J45.909 has been stable and is ok here Carpal jonathan shoaib syndrome of right wrist 4782779659 24629 G56.01 will cont the ibuprof Temporoman dibular joint disorder 51508637 M26.609 will cont the ibuprof Screening mammography 24 264558 Z12.31 Adult heal th examination 516799133 Z00.00 Tobacco de pendence syndrome 30615995 F17.200 [id number] [facility] [address] [facility] [address] 12/20/2021 10:25:58 12/20/2021 13:56:24 Chronic obstructive pulmonary disease 88900074 J44.9 we are going to begin her on trelegy will follow up in a few weeks samples of 200mg dose given Gastroesop hageal reflux disease 885380095 K21.9 seems stable Depressive disorder 3548 9007 F32.A follows her psychiatri st Multiple g astric ulcers 459816637 K25.9 had a signif icant bleed with hgb down to 7 we will order cbc and rechj uin 1 month Insomnia 324003817 G47.0 0 Panic disorder 917481226 F41.0 we will provide temporary lorazepam [id number] Daljit A. Bigda, DO [facility] [address] [facility] [address] [address] 12/27/2021 11:18:02 01/01/2022 08:30:58 Insomnia 670344456 G47.09 will fu if still having issues picking Moderate r ecurrent major depression 25079847 F33.1 will start on sertraline and resubmit seroquel dosage [id number] Daljit Irby [facility] Internal Medicine [address] [facility],[place] [address] 12/29/2021 10:30:37 01/01/2022 12:14:24 Bipolar disorder 46764071 F31.0 stable Depressive disorder 3548 9007 F32.0 improved Anxiety 59609514 F41.1 improved [id number] Daljit Irby [facility] Internal Medicine [address] [facility],[place] [address] 01/19/2022 11:02:49 01/19/2022 11:47:03 Active or passive immunization 699472234 Z23 will consider shingles and Tdap Panic disorder 805308563 F41.0 lorazepam was not too helpful Chronic ob structive pulmonary disease 22362365 J44.9 we are going to begin her on trelegy will follow up in a few weeks samples of 200mg dose givenseems to be helping she is breathing better Anxiety 23355361 F41.9 as above she is doing ok overall and id feeling betterwe discussed the poss of new med for the bipolar she will need to sidcuss with her psych (caplyta) Temporoman dibular joint disorder 87020804 M26.609 will cont the ibuprof [id number] Daljit Irby [facility] Internal Medicine [address] [facility] [address] [place] [address] 03/23/2022 08:40:47 03/23/2022 14:10:34 Melvivian 6543810 K92.1 will start work up for melena Cobalamin deficiency 190 697369 E53.8 needs refill Insomnia 780304549 G47.0 9 stable on medication Moderate r ecurrent major depression 18376251 F33.1 refill Gastroesop hageal reflux disease 529233380 K21.00 increase to 40 mg of omeprazole until source of bleed can be determined [id number] Daljit Irby [facility] Internal Medicine [address] [facility],[place] [address] 07/25/2022 08:54:50 07/25/2022 12:22:55 Asthma 096764475 J45.40 will start on neb with solution Moderate r ecurrent major depression 45060050 F33.1 refill needed Insomnia 359934467 G47.0 9 stable on medication Iron defic iency anemia 85279191 D50.0 will refill for patientdid call it in but haven't gotten a refill request yet [id number] Daljit Irby [facility] Internal Medicine [address] [facility], [place] [address] 10/10/2022 13:26:14 10/10/2022 16:09:00 Injury of knee 874813306 S89.91XA will fu with repeat XR in two weeks Swelling o f knee joint 891022005 M25.462 will start dual treatment with pred and tramadol Chronic ob structive pulmonary disease 56003929 J41.8 given samplestre legy works really well for her [id number] Daljit Irby [facility] Internal Medicine [address] [facility] [address] 10/15/2022 14:34:37 10/15/2022 16:06:12 Injury of knee [id number] S89.91XA still too much swelling US knee Swelling o f knee joint [id number] M25.462 severe swellingun able to drain any fluid off the patientjus t bleeding Chronic ob structive pulmonary disease 18440198 J41.8 given samplestre legy works really well for her [id number] Daljit Irby [facility] Internal Medicine [address] [facility], [place] [address] 11/30/2022 13:40:24 11/30/2022 15:58:43 Moderate recurrent major depression 99237764 F33.1 as noted no major changes Screening mammography 24 467997 Z12.31 Prepatella r bursitis of right knee [id number] 45540 M70.41 MUST be seen by a competent ortho Infection of prepatellar bursa of right knee [id number] 994477 M71.161 appears now to have a superficia l cellulitic appearance now spreading [id number] Daljit Irby [facility] Internal Medicine [address] [facility],[place] [address] 02/25/2023 11:05:10 02/25/2023 13:13:36 Asthma 202652149 J45.40 will start on neb with solution Exacerbati on of moderate persistent asthma 322917371 J45.41 will start on standard treatment Moderate r ecurrent major depression 75997793 F33.1 refill needed Urinary incontinence 165 836039 N39.42 [id number] Daljit Irby [facility] Internal Medicine [address] [facility],[place] [address] 05/24/2023 10:06:01 05/24/2023 11:27:12 Depressive disorder 49793863 F32.0 stable Acute bron chitis with bronchospasm 15356798 J20.9 will set up with prednisone + levoCOVID test negative Smoker 85309588 F17.200 will start on wellbutrin for smoking [id number] Daljit Irby [facility] Internal Medicine [address] [facility],[place] [address] 02/10/2024 10:22:57 02/10/2024 14:11:54 Urinary incontinence 700971550 N39.42 will switch out medication and fu with kidney and urine check Depression screening 171 153540 Z13.31 negative score Cobalamin deficiency 190 789073 E53.8 needs refill Iron defic iency anemia 63214063 D50.0 will refill for patientdid call it in but haven't gotten a refill request yet Hyperlipidemia 73983526 E78.2 will set up with recheck blood work Chronic ob structive pulmonary disease 41477819 J41.8 given samplestre debora works really well for her Dyspnea 249963031 R06.00 will set up with pred taper [id number] Daljit Irby [facility] Internal Medicine [address] [facility],[place] [address] 03/02/2024 14:34:00 03/03/2024 14:25:12 Depressive disorder 84030168 F32.0 F33.1 stable Mood disorder 67992108 F 31.0 stable Acute resp iratory failure 01818522 J96.00 stable Chronic ob structive pulmonary disease 74609155 J44.1 will f/u with pulm for evalordere d the PFT per pulm [id number] Daljit Irby, [facility] Internal Medicine [address] [facility],[place] [address] 03/17/2025 09:13:58 03/17/2025 10:24:07 Pain of knee region 2745721059 M25.561 M25.562 [id number] still too much swelling US knee Increased frequency of urination 678444606 R35.0 18167 Bilateral lower limb edema 287679348 R60.0 [id number] will set up with lab work Cobalamin deficiency 190 363516 E53.8 needs recheck blood work Iron defic iency anemia 87087595 D50.0 needs recheck BW Basal cell carcinoma of upper eyelid 189249919 C44.1121 [id number] will set up with derm for evaluation Health Concerns Section Related Observation LastModified by Organization Detai ls LastModified Time None Recorded Concern Status LastModified by Organization Details LastModified Time None Recorded Advance Directives Directive None Recorded Payers Insurance Date Sequence Insurance Name Policy Number Policy Chairez Covered Member ID Chairez Member ID Guarantor Name 04/06/2025 PAYMENT PLAN Lissette Sanches 03/17/2025 1 MEDICAID-[place] - [facility] PRIOR TO 12/22/2022 - [facility] (MEDICAID) Lissette Sanches [id number] Lissette Sanches 03/17/2025 1 [facility] [id number] Lissette Sanches [id number] Lissette Sanches 03/17/2025 1 MEDICAID-[place] : [facility] Lissette Sanches [id number] Lissette Sanches 12/20/2021 1 *SELF PAY* Ba gilberto Sanches 07/06/2025 1 [employer] (EPO) [id number] Lissette Sanches [id number] Lissette Sanches Notes Date Note Type Note [...] if it is effective [facility] [address] [place], [address], [facility] Internal Medicine 02/25/2023 11:58:55 3 text/html ROS as noted in the HPI c/o pneumonia patient has hx of smokingrecurrent pneumonia, hx of COPDhaving exacerbation with probable bronchitis start on steriods and abx cont inhalers at home [facility] [address] [place], [address], [facility] Internal Medicine 05/24/2023 10:31:11 4 text/html ROS [...] given order for it [facility] [address] [place], [address], [facility] Internal Medicine 02/10/2024 11:01:05 06/10/202 4 text/html ROS as noted in the [...] using her inhalers correctly [facility] [address] [place], [address], [facility] Internal Medicine 03/02/2024 15:15:46 5 text/html ROS as noted [...] check her levels Daljit Irby DO [address] [facility], [place], [address], [facility] Internal Medicine 04/20/2025 15:15:30 OBGyn Episode No OBEpisode recorded.
--- NOTE | 2025-08-15 11:13 | ECG_ITS ---
Test Reason : SHORTNESS OF BREATH Blood Pressure : */* mmHG Vent. Rate : 104 BPM Atrial Rate : 104 BPM P-R Int : 164 ms QRS Dur : 76 ms QT Int : 346 ms P-R-T Axes : 40 26 52 degrees QTcB Int : 454 ms Sinus tachycardia Low voltage QRS Borderline ECG When compared with ECG of 28-Jun-2025 11:29, No significant change was found Referred By: Baylee Joe Electronically Signed By: Norman Montoya
[2025-08-15 11:30] LABS: MANUAL DIFF FLAG NO
--- NOTE | 2025-08-15 11:31 | ED.SOB ---
HPI - SOB/Dyspnea General Chief Complaint: Dyspnea Stated Complaint: DIFFICULTY BREATHING Time Seen by Provider: 08/15/25 11:02 Source: patient and EMS Mode of arrival: EMS Limitations: no limitations History of Present Illness ED Provider: Baylee Joe APRN HPI Narrative: this is a 64-year-old female with a history of COPD who is on 2 L of oxygen at baseline who is a tobacco smoker presents the ER with complaints of shortness of breath worsening over the last few days with nonproductive cough. Patient reports that she has been using her nebulizer treatments every 4 hours for the last 48 hours. This morning she felt that she could not catch her breath prompting her to call EMS. EMS reports her oxygen saturation was 77% on 2 L. she received a DuoNeb and 125 mg by EMS. She denies any recent illnesses. No recent travel. No sick contact. No reports of fevers, chills, body aches. no chest pain or leg swelling.. Of note patient has multiple admissions for COPD exacerbation with a recent admission from June 28- for COPD exacerbation and Hcap. Related Data Home Medications ?Medication ?Instructions ?Recorded ?Confirmed duloxetine 60 mg capsule,delayed 60 mg PO BID 09/01/21 06/28/25 release sprinkle lamotrigine 200 mg tablet 200 mg PO BEDTIME 09/01/21 06/28/25 quetiapine 25 mg tablet 25 mg PO BEDTIME 02/14/22 06/28/25 omeprazole 40 mg capsule,delayed 40 mg PO DAILY@0630 07/03/22 06/28/25 release mirabegron 25 mg tablet,extended 25 mg PO DAILY 02/15/24 06/28/25 release 24 hr (Myrbetriq) albuterol sulfate 90 mcg/actuation 2 puff inhalation Q4H PRN 05/30/25 06/28/25 aerosol inhaler Shortness Of Breath Or Wheezing zolpidem 5 mg tablet 5 mg PO BEDTIME PRN Sleep 05/30/25 06/28/25 Previous Rx's ?Medication ?Instructions ?Recorded albuterol sulfate 2.5 mg/3 mL 2.5 mg (3 mL) inhalation QID PRN 02/18/24 (0.083 %) solution for nebulization Shortness Of Breath Or Wheezing #180 mL amlodipine 5 mg tablet 5 mg PO DAILY #90 tabs 02/18/24 fluticasone fur. 200 mcg-umeclid 1 inh inhalation DAILY #60 ea 07/09/25 62.5 mcg-vilant 25 mcg inhalat.powder (Trelegy Ellipta) ipratropium 0.5 mg-albuterol 3 mg 3 ml inhalation Q6H PRN wheezing 07/09/25 (2.5 mg base)/3 mL nebulization #180 mL soln prednisone 20 mg tablet 40 mg (2 x 20 mg) PO DAILY #10 tabs 07/14/25 cefuroxime axetil 500 mg tablet 500 mg PO BID #14 tabs 08/15/25 prednisone 20 mg tablet 40 mg (2 x 20 mg) PO DAILY #8 tabs 08/15/25 Allergies Allergy/AdvReac Type Severity Reaction Status Date / Time No Known Allergies Allergy Verified 08/15/25 10:52 Review of Systems Review of Systems: Yes all other systems are reviewed and are negative Constitutional: Constitutional: Reports no additional constitutional complaints, Denies body ache(s), Denies chills, Denies fever(s), Denies headache(s) and Denies weakness Eyes: Eyes: Reports no additional eye complaints and Denies change in vision ENT: Reports system reviewed and no additional complaints, except as documented, Denies dizziness, Denies headache(s), Denies nasal congestion, Denies nasal discharge and Denies neck pain Cardiovascular: Cardiovascular: Reports no additional cardiovascular complaints, Denies chest pain, Denies leg edema and Reports dyspnea Respiratory: Respiratory: Reports no additional respiratory complaints, Reports cough and Reports dyspnea Gastrointestinal: Gastrointestinal: Reports no additional gastrointestinal complaints, Denies abdominal pain, Denies diarrhea, Denies nausea and Denies vomiting Genitourinary: Genitourinary: Reports no additional female genitourinary complaints and Denies urinary incontinence Musculoskeletal: Musculoskeletal: Reports no additional musculoskeletal complaints, Denies back pain, Denies arthralgias, Denies joint swelling, Denies neck pain, Denies numbness and Denies tingling Integumentary/Breasts: Skin/Breast: Reports system reviewed and no additional complaints, except as docu and Denies rash Neurologic: Reports system reviewed and no additional complaints, except as documented, Denies Abnormal speech present, Denies dizziness, Denies headache(s), Denies numbness, Denies tingling and Denies weakness [facility] Past Medical History Attestation statement: The following information was validated with the patient. Source: old records reviewed and nursing notes reviewed Medical History Mood disorder Tobacco use disorder Hx of head injury Anemia Panic anxiety syndrome Pelvic mass Anemia COPD (chronic obstructive pulmonary disease) Surgical History Hx of colonoscopy History of mandibular surgery H/O: hysterectomy Social History Social History Household Members: Other Household Members Other:: roommate Housing: House Do you presently have visiting nurse or other home services: No Alcohol intake: unknown Comment: Pt takes off chair alarm Patient Tobacco Use Status: Former Tobacco user Tobacco use type: Cigarette Cigarette Packs Per Day: 1 Cigarettes Per Day: 10 Years Smoked: 40 Second Hand Smoke Exposure: Yes Substance Use Type: Marijuana Advance Directives: Yes Advance Directives Information Provided: Yes Advance Directives on File: No Do you have a plan to hurt others: No Plan service: No Current occupational status: employed Current occupation: [employer]/ left hand dominant Physical Exam Vital Signs: Vital Signs: Last Vital Signs Temp 97.8 F 08/15/25 12:14 Pulse 106 H 08/15/25 14:40 Resp 22 H 08/15/25 14:40 BP 150/77 H 08/15/25 14:40 Pulse Ox 93 08/15/25 14:40 O2 Del Method Oxymask 08/15/25 14:40 O2 Flow Rate 4 08/15/25 14:40 Oxygen Flow Rate 6 08/15/25 10:44 BMI result Body Mass Index 42.5 Const: General: cooperative, healthy appearing, comfortable and no acute distress Orientation/consciousness: patient oriented x3 Limitations: no limitations HEENT: Head: Yes normal to inspection Ears: hearing grossly normal bilaterally General nose exam: Normal external nose present Face and sinus: Yes normal facial exam Mouth: Normal oral and palatal mucosa present Throat: Yes posterior oropharynx normal Eyes: General: appearance normal, both eyes and all related structures Pupils: Equal, round and reactive pupils present Neck: Neck: Yes normal visual inspection Chest: Chest palpation & inspection: normal inspection of the chest Resp: Effort & Inspection: tachypneic Auscultation: wheezes Cardio: Rate: regular rate Rhythm: regular rhythm Peripheral pulses: Peripheral pulses 2+ throughout GI: Inspection: Yes normal to inspection Palpation (GI): Soft to palpation and nontender Auscultation: normal bowel sounds Back/Spine/Pelvis: Thoracic/Lumbar Spine: thoracic and lumbar spine normal to inspection Skin: General skin exam: no rashes or lesions noted Neuro: General: patient oriented x3, no focal motor deficits and normal sensation to monofilament Cranial nerves: Yes Equal, round and reactive pupils present Cognition (Neuro): normal cognition Speech: No Abnormal speech present Gait exam (Neuro): Normal gait present Motor exam (neuro): 5/5 motor strength present throughout Extrem: General: Yes normal to inspection, Yes no calf tenderness and No edema Course Reevaluation(s) Reevaluation #1: 1250-Transitioned to 4L NC. Feeling better. Offered admission. Would prefer to go home. Will re-eval Reevaluation #2: 1340-Patient requires additional 7.5mg albuterol Reevaluation #3: 1545- patient would like to go home. She is still requiring 4 L of oxygen. Her baseline oxygen requirement of 2 L. I did offer her admission multiple times but she would like to go home with prednisone and antibiotics and continue her home nebulizers. Reviewed worrisome signs and symptoms of when to return to the emergency room. Comfortable plan for discharge home. Medications Administered Discontinued Medications Generic Name Dose Route Start Last Admin Trade Name Sergioq PRN Reason Stop Dose Admin Acetaminophen 975 mg 08/15/25 11:13 08/15/25 11:38 Acetaminophen 325 Mg Tablet PO 08/15/25 11:14 975 mg ONCE ONE Administration Albuterol Sulfate 5 mg/ 0 mg 08/15/25 10:54 08/15/25 10:57 Albuterol/Ipratropium 3 ml INHALE 08/15/25 10:55 1 each ONCE ONE Administration Albuterol Sulfate 5 mg/ 0 mg 08/15/25 13:38 08/15/25 13:41 Albuterol/Ipratropium 3 ml INHALE 08/15/25 13:39 1 each ONCE ONE Administration Magnesium Sulfate 2 gm in 50 mls @ 150 mls/hr 08/15/25 11:13 08/15/25 12:40 Magnesium Sulfate/H2o IV 08/15/25 11:32 Infused ONCE ONE Infusion Cefepime HCl 2 gm in 50 mls @ 100 mls/hr 08/15/25 11:13 08/15/25 12:41 Maxipime IV 08/15/25 11:42 Infused ONCE ONE Infusion Sodium Chloride 500 mls @ 999 mls/hr 08/15/25 11:13 08/15/25 12:41 Ns IV 08/15/25 11:43 Infused .Q31M STA Infusion Medical Decision Making Medical Decision Making [facility] Narrative: this is a 64-year-old female with a history of COPD who is on 2 L of oxygen at baseline who is a tobacco smoker presents the ER with complaints of shortness of breath worsening over the last few days with nonproductive cough. Patient reports that she has been using her nebulizer treatments every 4 hours for the last 48 hours. This morning she felt that she could not catch her breath prompting her to call EMS. EMS reports her oxygen saturation was 77% on 2 L. she received a DuoNeb and 125 mg by EMS. She denies any recent illnesses. No recent travel. No sick contact. No reports of fevers, chills, body aches. no chest pain or leg swelling.. Of note patient has multiple admissions for COPD exacerbation with a recent admission from June 28- for COPD exacerbation and Hcap. prior to my assessment the patient also received 7.5 mg of albuterol when I examined her she is sitting upright and speaking short sentences. She has mild expiratory wheezing. Her respiratory rate is 28. Her oxygen saturation is 92% on 6 L. she is afebrile. blood pressure is normotensive will need labs including blood cultures and lactic acid, viral testing, chest x-ray, EKG patient will receive magnesium 2 g IV, IV fluids, cefepime IV Differential Diagnosis Differential Diagnoses: The differential diagnosis associated with the presentation includes COPD exacerbation pneumonia low suspicion for PE, ACS, CHF Admission/Observation Consideration of admission/observation: Escalation of care including admission/observation considered Lab Data [facility] Lab Attestation statement: I reviewed the patient's lab results. 08/15/25 11:24 08/15/25 11:24 Labs: Lab Results 08/15/25 08/15/25 08/15/25 Range/Units 11:24 11:30 13:59 WBC 13.5 H (4.8-10.8) X10*3/uL RBC 5.22 (4.20-5.50) X10*6/uL Hgb 10.8 L (12.0-16.0) g/dl Hct 38.3 (37.0-47.0) % MCV 73.4 L (80.0-98.0) fL MCH 20.7 L (27.0-33.0) pg MCHC 28.2 L (31.0-35.0) g/dl RDW 17.8 H (11.0-16.0) % Plt Count 269 (160-400) X10*3/uL MPV 10.1 (9.4-12.3) fL Immature Gran % (Auto) 1.3 H (0.0-0.4) % Neut % (Auto) 82.8 H (45-73) % Lymph % (Auto) 10.5 L (20-40) % [place] % (Auto) 4.8 (2-11) % Eos % (Auto) 0.2 (0-4) % Baso % (Auto) 0.4 (0-2) % Lymph # (Auto) 1.4 (1.2-4.9) X10*3/uL [place] # (Auto) 0.7 (0.1-1.2) X10*3/uL Eos # (Auto) 0.0 (0.0-0.4) X10*3/uL Baso # (Auto) 0.1 (0.0-0.2) X10*3/uL Abs Immat Gran (auto) 0.18 H (0.00-0.03) X10*3/uL Absolute Neuts (auto) 11.2 H (2.0-8.3) x10*3/uL Absolute Nucleated RBC 0.000 (0.0-0.012) X10*3/uL Nucleated RBC % (auto) 0.0 (0.0-0.2) /100WBC VBG pH 7.32 (7.32-7.43) VBG pCO2 72 mmHg VBG pO2 87 mmHg VBG HCO3 37 H (22-26) mmol/L VBG O2 Saturation 99.0 % VBG Base Excess 8.9 mmol/L Sodium 143 (135-145) mmol/L Potassium 3.7 (3.3-5.1) mmol/L Chloride 101 (96-108) mmol/L Carbon Dioxide 32 H (22-29) mmol/L Anion Gap 14 (12-20) BUN 9 (9-16) mg/dL Creatinine 0.72 (0.5-1.4) mg/dL Estim Creat Clear Calc 87.7 Estimated GFR > 60 Random Glucose 140 H (60-115) mg/dL Lactic Acid 1.6 (0.5-2.0) mmol/L Calcium 9.1 (8.4-10.2) mg/dL Total Bilirubin 0.5 (0.0-1.0) mg/dL Direct Bilirubin 0.2 (0.0-0.5) mg/dL AST 21 (5-31) U/L ALT 19 (0-31) U/L Alkaline Phosphatase 81 (39-117) U/L Troponin I High Sens 4.0 (<3.5-17.0) ng/L Total Protein 6.8 (6.5-8.0) g/dL Albumin 4.3 (3.5-5.0) g/dL Urine Color Yellow Urine Appearance Clear Urine pH 7.5 (5.0-9.0) Ur Specific [place] <= 1.005 (1.005-1.025) Urine Protein Negative (Neg-Trace) mg/dL Urine Glucose (UA) Negative (Negative) mg/dL Urine Ketones Negative (Negative) mg/dL Urine Blood Negative (Negative) Urine Nitrite Negative (Negative) Ur Leukocyte Esterase Negative (Negative) Urine RBC 0-2 (0-2) /HPF Urine WBC 0-5 (0-5) /HPF Ur Squamous Epith Cells 0-2 (0-2) /HPF Urine Bacteria None Seen (None Seen) Hyaline Casts 0-2 (0-2) /LPF Influenza Type A (PCR) NEGATIVE (Negative) Influenza Type B (PCR) NEGATIVE (Negative) RSV RNA Qual (PCR) NEGATIVE (Negative) SARS-CoV-2 RNA (RT-PCR) NEGATIVE (Negative) Independent Interpretation I performed an independent interpretation of an: EKG and Plain X-Ray Interpretation: I independently viewed the x-ray and agree with the radiology report I independently viewed the EKG which shows sinus tachycardia with a rate of 104, normal OH, unchanged from previous EKG 10/6/25 Radiology Impression Discussion of test interpretation with radiology: I have reviewed the radiologist's reading. Radiologist Impression: [address] [address] XRay Report Signed Patient: Lissette Sanches MR#: [id number] : 1960 Acct:[id number] Age/Sex: 64 / F ADM Date: 08/15/25 Loc: HO.ED Attending Dr: Ordering Physician: Baylee Joe NP Date of Service: 08/15/25 Procedure(s): XR chest 1V Accession Number(s): [id number] cc: Daljit Irby MD; Baylee Joe NP~ Reason for Exam: SOB CLINICAL HISTORY: SOB 1 view chest Comparison: CR/SR - XR CHEST 2 VIEWS - 07/26/25 11:24 EST Findings: Cardiac and mediastinal contours are stable. Mild interstitial prominence with scattered peribronchial thickening. No focal consolidation. No effusion. No pneumothorax. No acute osseous finding. Impression: Mild interstitial prominence with scattered peribronchial thickening. No focal consolidation. Findings are similar to prior. This document has been electronically signed by: Hayden Jeong MD on 08/15/2025 11:37:22 Independent Historian Clinical information obtained from an independent historian. History obtained from or confirmed by: EMS Discharge Plan Discharge Clinical Impression: Acute exacerbation of chronic obstructive airways disease Patient Disposition: Home, Self-Care Instructions: COPD (Chronic Obstructive Pulmonary Disease) (ED) Additional Instructions: start your prednisone and antibiotic tomorrow Call your primary care doctor and ask for a prescription for Chantix your testing for flu, COVID and RSV are negative your x-ray shows no signs of pneumonia Prescriptions: New prednisone 20 mg tablet 40 mg PO DAILY Qty: 8 0RF cefuroxime axetil 500 mg tablet 500 mg PO BID Qty: 14 0RF No Action prednisone 20 mg tablet 40 mg PO DAILY Qty: 10 0RF lamotrigine 200 mg Tablet 200 mg PO BEDTIME duloxetine 60 mg Capsule, Delayed Rel Sprinkle 60 mg PO BID quetiapine 25 mg tablet 25 mg PO BEDTIME omeprazole 40 mg capsule,delayed release(DR/EC) 40 mg PO DAILY@0630 Rx Instructions: After 8 weeks to take it daily mirabegron [Myrbetriq] 25 mg tablet extended release 24 hr 25 mg PO DAILY amlodipine 5 mg Tablet 5 mg PO DAILY Qty: 90 0RF Protocol: Hold for SBP< HOLD for SBP < : 90 albuterol sulfate 2.5 mg /3 mL (0.083 %) solution for nebulization 2.5 mg inhalation QID PRN (Reason: Shortness Of Breath Or Wheezing) Qty: 180 1RF zolpidem 5 mg tablet 5 mg PO BEDTIME PRN (Reason: Sleep) albuterol sulfate 90 mcg/actuation HFA aerosol inhaler 2 puff inhalation Q4H PRN (Reason: Shortness Of Breath Or Wheezing) Trelegy Ellipta 200-62.5-25 mcg blister with device 1 inh inhalation DAILY Qty: 60 3RF ipratropium-albuterol 0.5 mg-3 mg(2.5 mg base)/3 mL solution for nebulization 3 ml inhalation Q6H PRN (Reason: wheezing) Qty: 180 3RF Referrals: Daljit Irby MD [Primary Care Provider, Internal Medicine] Print Language: Nigerian
[2025-08-15] MEDS: cefEPime HCl/D5W 2 GM/50 ML PIGGYBACK IV (11:32)
[2025-08-15 11:33] LABS: Hematocrit 38.3 % (37.0-47.0); Hemoglobin 10.8 g/dl (12.0-16.0); Imm Gran Abs Auto 0.18 X10*3/uL (0.00-0.03); Imm Gran Pct Auto 1.3 % (0.0-0.4); Lymphocytes Absolute Auto 1.4 X10*3/uL (1.2-4.9); Mean Corpuscular HGB Conc 28.2 g/dl (31.0-35.0); Mean Corpuscular Hemoglobin 20.7 pg (27.0-33.0); Mean Corpuscular Volume 73.4 fL (80.0-98.0); NRBC Abs Auto 0.000 X10*3/uL (0.0-0.012); NRBC Pct Auto 0.0 /100WBC (0.0-0.2); Platelet Count 269 X10*3/uL (160-400); Red Blood Count 5.22 X10*6/uL (4.20-5.50); White Blood Count 13.5 X10*3/uL (4.8-10.8)
[2025-08-15 11:34] LABS: Venous Blood Gas Refer to POC result
[2025-08-15 11:35] LABS: VBG HCO3 37 mmol/L (22-26); VBG O2 % Saturation 99.0 %
[2025-08-15] MEDS: Magnesium Sulfate/H2O 2 GM/50 ML PIGGYBACK IV (11:35)
[2025-08-15 11:49] LABS: Alanine Aminotransferase 19 U/L (0-31); Albumin Level 4.3 g/dL (3.5-5.0); Alkaline Phosphatase 81 U/L (39-117); Anion Gap 14 (12-20); Aspartate Amino Transferase 21 U/L (5-31); Blood Urea Nitrogen 9 mg/dL (9-16); Calcium 9.1 mg/dL (8.4-10.2); Carbon Dioxide 32 mmol/L (22-29); Chloride 101 mmol/L (96-108); Creatinine Clr Calc Pharmacy 87.7; Estimated Glomerular Filt Rate > 60; Potassium 3.7 mmol/L (3.3-5.1); Sodium 143 mmol/L (135-145); Total Protein 6.8 g/dL (6.5-8.0)
[2025-08-15 11:53] LABS: Troponin-I High Sensitivity 4.0 ng/L (<3.5-17.0)
[2025-08-15 12:14] VITALS: BP 136/73; PULSE 100; RESP 16; TEMP 36.6; O2SAT 93
[2025-08-15 12:14] LABS: Resp Syncy Virus RNA Qual PCR NEGATIVE (Negative); SARS COV2 PCR INHOUSE NEGATIVE (Negative)
[2025-08-15 13:42] VITALS: PULSE 100; RESP 16; O2SAT 91
[2025-08-15 14:06] LABS: Appearance Urine Clear; Glucose Urine UA Negative (Negative); PH 7.5 (5.0-9.0); Specific Gravity - Urine <= 1.005 (1.005-1.025)
[2025-08-15 14:40] VITALS: BP 150/77; PULSE 106; RESP 22; O2SAT 93
[2025-08-15 15:59] VITALS: BP 136/95; PULSE 92; RESP 22; TEMP 36.6; O2SAT 93
== END 2025-08-15 16:00 | disposition home or self-care (01) ==
PROVIDERS: Nurse Practitioner Family; Emergency Provider Emergency Medicine Emergency Medical Services; PCP Internal Medicine
DX: J44.9 Chronic obstructive pulmonary disease, unspecified (principal); R06.02 Shortness of breath; Z99.81 Dependence on supplemental oxygen; Z79.899 Other long term (current) drug therapy; Z03.818 Encounter for observation for suspected exposure to other biological agents ruled out
CPT/HCPCS: 71045; 80048; 80076; 81001; 82803; 83605; 84484; 85025; 87040; 87637; 93005; 94640; 96365; 96375; 99285; J0692; J3475

== ENCOUNTER → 2025-08-15 11:13 | Outpatient (BNV) | payer OTHER, SELFPAY | PROVIDERS: Emergency Provider Emergency Medicine Emergency Medical Services; PCP Internal Medicine; Visit Provider Radiology Vascular & Interventional Radiology | DX: J98.09 Other diseases of bronchus, not elsewhere classified (principal) | CPT/HCPCS: 71045 ==

== ENCOUNTER → 2025-08-15 11:13 | Outpatient (BNV) | payer OTHER, SELFPAY | PROVIDERS: Emergency Provider Emergency Medicine Emergency Medical Services; PCP Internal Medicine; Visit Provider Internal Medicine Cardiovascular Disease | DX: R00.0 Tachycardia, unspecified (principal) | CPT/HCPCS: 93010 ==

== ENCOUNTER 2025-09-01 04:03 | Inpatient (IN) | payer OTHER, SELFPAY ==
[2025-09-01] VITALS (17 sets, daily range): BP systolic 112–161; BP diastolic 63–116; PULSE 97–117; RESP 12–28; TEMP 36.8–37; O2SAT 78–97; BMI 38.9
--- NOTE | ~2025-09-01 | XR_ITS ---
CLINICAL HISTORY: Cough 1 view chest x-ray Comparison: CR - XR CHEST 1V - 08/15/25 11:19 EST Findings: The heart is mildly enlarged with prominence of the pulmonary vasculature and interstitium. No dense consolidation. No effusion or pneumothorax. No acute osseous findings. IMPRESSION: 1. No significant interval change. This document has been electronically signed by: Ginny Gupta MD on 09/01/2025 07:11:55
--- NOTE | 2025-09-01 04:25 | ECG_ITS ---
Test Reason : sob Blood Pressure : */* mmHG Vent. Rate : 101 BPM Atrial Rate : 101 BPM P-R Int : 162 ms QRS Dur : 76 ms QT Int : 344 ms P-R-T Axes : 34 20 51 degrees QTcB Int : 446 ms Sinus tachycardia Low voltage QRS Cannot rule out Anterior infarct , age undetermined Abnormal ECG When compared with ECG of 15-Aug-2025 11:39, Minimal criteria for Anterior infarct are now Present Referred By: Elisha Turcios Electronically Signed By: RODGER DAHL MD
[2025-09-01 04:47] LABS: MANUAL DIFF FLAG NO
[2025-09-01 04:49] LABS: Hematocrit 36.4 % (37.0-47.0); Hemoglobin 10.1 g/dl (12.0-16.0); Imm Gran Abs Auto 0.19 X10*3/uL (0.00-0.03); Imm Gran Pct Auto 1.8 % (0.0-0.4); Lymphocytes Absolute Auto 1.2 X10*3/uL (1.2-4.9); Mean Corpuscular HGB Conc 27.7 g/dl (31.0-35.0); Mean Corpuscular Hemoglobin 20.8 pg (27.0-33.0); Mean Corpuscular Volume 74.9 fL (80.0-98.0); NRBC Abs Auto 0.030 X10*3/uL (0.0-0.012); NRBC Pct Auto 0.3 /100WBC (0.0-0.2); Platelet Count 307 X10*3/uL (160-400); Red Blood Count 4.86 X10*6/uL (4.20-5.50); White Blood Count 10.6 X10*3/uL (4.8-10.8)
[2025-09-01 04:50] LABS: Venous Blood Gas Refer to POC result
[2025-09-01 04:52] LABS: VBG HCO3 38 mmol/L (22-26); VBG O2 % Saturation 87.0 %
[2025-09-01] MEDS: Magnesium Sulfate/H2O 2 GM/50 ML PIGGYBACK IV (04:53)
[2025-09-01 05:05] LABS: Alanine Aminotransferase 12 U/L (0-31); Albumin Level 3.9 g/dL (3.5-5.0); Alkaline Phosphatase 83 U/L (39-117); Anion Gap 10 (12-20); Aspartate Amino Transferase 19 U/L (5-31); Blood Urea Nitrogen 10 mg/dL (9-16); Calcium 9.1 mg/dL (8.4-10.2); Carbon Dioxide 35 mmol/L (22-29); Chloride 103 mmol/L (96-108); Creatinine Clr Calc Pharmacy 89.2; Estimated Glomerular Filt Rate > 60; Magnesium 2.1 mg/dL (1.6-2.6); Potassium 4.1 mmol/L (3.3-5.1); Sodium 144 mmol/L (135-145); Total Protein 6.0 g/dL (6.5-8.0)
[2025-09-01 05:10] LABS: NT Pro B Type Natriuretic Pept 528.6 pg/mL (<300)
[2025-09-01] MEDS: Albuterol Sulfate 5 MG, Albuterol/Iprat 2.5/0.5MG 3 ML 3 ML INHALE (05:10)
[2025-09-01 05:14] LABS: Troponin-I High Sensitivity < 2.7 ng/L (<3.5-17.0)
[2025-09-01 05:35] LABS: Resp Syncy Virus RNA Qual PCR NEGATIVE (Negative); SARS COV2 PCR INHOUSE NEGATIVE (Negative)
--- OUTSIDE RECORDS SUMMARY | 2025-09-01 05:53 | XMS_ITS | Data Portability ---
Author Organization [facility], Telehealth Patient Home Address [address] [place] [address] Assessment No assessment recorded. Plan of Treatment Reminders Order Date Submit Date Provider Last Modified By Organization Details Last Modified Time Details Appointments None recorded. Lab uric acid, serum or plasma 2024 025 [facility], [address] [place] [address], [address], 09:43:02 urinalysis complete, reflex culture 2024 025 [facility], [address] [place] [address], [address], 09:43:01 hemoglobin A1c, QN, blood 2024 025 [facility], [address] [place] [address], [address], 5 09:43:02 vitamin B12 + folate, serum or blood 2024 025 [facility], [address] [place] [address], [address], 5 09:43:02 iron + TIBC + ferritin, serum 2024 025 [facility], [address] [place] [address], [address], 09:43:01 CMP, serum or plasma 2024 025 [facility], [address] [place] [address], [address], 5 09:43:01 CBC w/ auto diff 2024 025 [facility], [address] [place] [address], [address], 5 09:43:01 magnesium, serum or plasma 2024 025 [facility], [address] [place] [address], [address], 5 09:43:01 ESR (erythrocy te sedimentat ion rate), blood 2024 025 [facility], [address] [place] [address], [address], 5 09:43:02 C-reactive protein, quantitati ve, serum or plasma 2024 025 [facility], [address] [place] [address], [address], 5 09:43:02 TSH + free T4, serum 2024 025 [facility], [address] [place] [address], [address], 5 09:43:02 lipid panel, serum 2023 024 [facility], [address] [place] [address], [address], 4 11:05:54 CBC w/ auto diff 2023 024 [facility], [address] [place] [address], [address], 4 11:05:54 CMP, serum or plasma 2023 024 [facility], [address] [place] [address], [address], 4 11:22:06 urinalysis complete, reflex culture 2023 024 [facility], [address] [place] [address], [address], 4 11:01:07 iron + TIBC + ferritin, serum 2023 024 [facility], [address] [place] [address], [address], 4 11:05:54 vitamin B12 + folate, serum or blood 2023 024 [facility], [address] [place] [address], [address], 4 11:05:54 homocystei ne, serum or plasma 2023 024 [facility], [address] [place] [address], [place], [address], 4 11:17:29 TSH + free T4, serum 2023 024 [facility], [address] [place] [address], [address], 4 11:06:30 Referral dermatolog ist referral 2024 025 [email or web address] 10 [facility], [address] [place] [address], [address], 5 10:01:06 pulmonolog ist referral 2023 024 [email or web address] Supa Sullivan MD, [address] [place] [address] [place], [address], 4 14:25:12 Procedures None recorded. Surgeries None recorded. Imaging XR, knee, 3 view 2024 025 [facility] (Imaging), [address] [place], [address], 5 08:31:09 PFT, complete - [id number] 03/04/24-09/16 024 [facility], [address] [place], [address], 4 08:41:34 XR, chest, 2 view 2022 023 [facility] (Imaging), [address] [place], [address], 3 08:40:25 Medication Orders Myrbetriq 25 mg tablet,ext ended release 2023 024 [facility] [address] [facility] [place], [address], 4 10:54:00 prednisone 10 mg tablet 2023 024 [facility] [address] [facility] [place], [address], 4 10:54:41 Wellbutrin XL 150 mg 24 hr tablet, extended release 2022 023 dru [facility] #0693, [address] [facility] [place], [address], 4 09:07:42 prednisone 10 mg tablet 2022 023 [email or web address]armacy #0693, [address] [place], [address], 4 10:32:59 levofloxac in 500 mg tablet [address]/Pharmacy #0693, [address] [place], [address], 4 10:32:44 duloxetine 60 mg capsule,de layed release 2022 023 [facility] [address] [facility] [place], [address], 3 10:18:19 prednisone 10 mg tablet 2022 023 [email or web address] [address] [facility] [place], [address], 4 10:32:59 Zithromax Z-Tim 250 mg tablet 2022 023 [facility] [address] [facility] [place], [address], 3 14:12:12 albuterol sulfate HFA 90 mcg/actuat ion aerosol inhaler 2022 023 [email or web address] [address] [facility] [place], [address], 4 14:51:15 lorazepam 0.5 mg tablet 2022 023 [facility] [address] [facility] [place], [address], 3 11:51:57 oxybutynin chloride ER 5 mg tablet,ext ended release 24 hr 2022 023 [facility] [address] [place], [address], 4 10:50:31 Patient TargetsNo targets recorded. Patient InstructionsNo instructions recorded. 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 [email or web address] [facility] (Medical Records) [address] [place], [address], 05/31/2023 11:13:40 02/15/20 24 02/15/2024 XR, chest , 1 view No observ ation record ed. [email or web address] [facility] (Medical Records) [address] [place], [address], 02/18/2024 08:30:04 02/16/20 24 02/16/2024 XR, chest , 1 view No observ ation record ed. [email or web address] [facility] (Medical Records) [address] [place], [address], 02/18/2024 08:30:20 10/07/19 25 10/05/2024 XR, chest , 2 view No observ ation record ed. [email or web address] [facility] (Medical Records) [address] [place], [address], 10/07/2024 09:20:31 11/01/19 25 11/01/2024 XR, shoul aleks, 2 or more view No observ ation record ed. [email or web address] [facility] (Medical Records) [address] [place], [address], 11/02/2024 08:33:01 12/29/1912/24/2024 MAMMO , scree guzman, digit al, bilat eral No observ ation record ed. [email or web address] [facility] [address] [place], [address], 12/29/2024 08:15:55 03/30/20 25 03/30/2025 XR, knee, 3 view No observ ation record ed. [email or web address] [facility] (Medical Records) [address] [place], [address], 03/30/2025 10:01:49 03/30/20 25 03/30/2025 XR, knee, 3 view No observ ation record ed. [email or web address] [facility] (Medical Records) [address] [place], [address], 03/30/2025 10:01:50 04/27/20 25 04/27/2025 CT, chest , w/o contr ast No observ ation record ed. [facility] (Medical Records) [address] [place], [address], 04/27/2025 09:36:37 05/06/20 25 05/06/2025 CT, head + brain , w/o contr ast No observ ation record ed. [email or web address] [facility] (Medical Records) [address] [facility] [place], [address], 05/07/2025 08:40:24 05/30/20 25 05/30/2025 CT, chest + abdom en + pelvi s, w/o contr ast No observ ation record ed. [email or web address] [facility] (Medical Records) [address] [facility] [place], [address], 05/31/2025 08:12:45 05/31/20 25 05/31/2025 CT, angio gram, chest , w/ contr ast No observ ation record ed. [email or web address] [facility] (Medical Records) [address] [facility] [place], [address], 05/31/2025 13:24:46 06/28/20 25 06/28/2025 XR, chest , 2 view No observ ation record ed. [facility] (Medical Records) [address] [facility] [place], [address], 06/28/2025 16:59:56 06/28/2006/28/2025 XR, chest , 2 view No observ ation record ed. [facility] (Medical Records) [address] [place], [address], 06/28/2025 17:00:09 07/26/20 25 07/26/2025 XR, chest , 2 view No observ ation record ed. [facility] (Medical Records) [address] [place], [address], 07/26/2025 13:56:16 08/15/20 25 08/15/2025 XR, chest , 2 view No observ ation record ed. [facility] (Medical Records) [address] [place], [address], 08/16/2025 08:17:58 Result Notes None recorded. Problems Name Problem SNOMED Code Status Onset Date Resolution Date Notes Provider Name and Address Organization Details Recorded Time Asthma 893575263 [facility] 8 10:31:25 Gastroeso phageal reflux disease 871881228 Active 2017 Stacie [email or web address] 8 10:31:31 Bipolar disorder 10880776 Active 2017 Otilia Santo NP, [address] [place] [address], [address], [facility] 8 10:56:03 Depressiv e disorder 33989225 Active 2017 Otilia Santo NP, S [address] [place] [address], [address], [facility] 8 10:56:12 Temporoma ndibular joint disorder 43273429 Active 2019 Daljit Irby, [address] [place] [address], [address], [facility] 0 11:11:51 Carpal tunnel syndrome of right wrist 367262287051 108 Active 2019 Daljit Irby, DO [address] [place] [address], [address], [facility] 0 11:12:02 Chronic obstructi ve pulmonary disease 29418826 Active 2021 Daljit Irby, DO [address] [place] [address], [address], [facility] 2 10:56:45 Multiple gastric ulcers 206578265 Active 2021 Daljit Irby, DO [address] [place] [address], [address], [facility] 2 10:57:21 Insomnia 095676802 Active 2021 Daljit Irby DO [address] [place] [address], [address], [facility] 2 10:59:47 Panic disorder 804458554 Active 2021 Daljit Irby, DO [address] [place] [address], [address], [facility] 2 11:01:07 Moderate recurrent major depressio n 74460863 Active 2021 TANNER LOCKE [address] [place] [address], [address], [facility] 2 11:43:50 Anxiety 55581219 Active 2021 TANNER LOCKE [address] [place] [address], [address], [facility] 2 12:22:43 Melena 4794989 Active 2021 TANNER LOCKE [address] [place] [address], [address], [facility] 2 10:33:58 Cobalamin deficienc y 747319329 Active 2021 TANNER LOCKE [address] [place] [address], [address], [facility] 2 10:34:46 Iron deficienc y anemia 33938741 Active 2021 TANNER LOCKE [address] [place], [address], [facility] 2 12:03:20 Injury of knee 447891180 Active 2022 TANNER LOCKE [address] [place] [address], [address], [facility] 3 13:56:04 Injury of knee 850785176 Active 2022 TANNER LOCKE [address] [place] [address], [address], [facility] 3 13:56:09 Swelling of knee joint 201036994 Active 2022 TANNER LOCKE [address] [place] [address], [address], [facility] 3 13:57:51 Infected bursa 911007273 Active 2022 TANNER LOCKE [address] [place] [address], [address], [facility] 3 10:28:39 Hematoma of right lower leg 707229042444 50189 Active 2022 TANNER LOCKE [address] [place] [address], [address], [facility] 3 10:29:45 Prepatell ar bursitis of right knee 820479457966 100 Active 2022 Daljit Irby DO [address] [place] [address], [address], [facility] 3 14:11:50 Infection of prepatell ar bursa of right knee 214380303511 9105 Active 2022 Daljit Irby DO [address] [place] [address], [address], [facility] 3 14:12:07 Exacerbat ion of moderate persisten t asthma 035845380 Active 2022 TANNER LOCKE [address] [place], [address], [facility] 3 11:47:09 Urinary incontine nce 291120399 Active 2022 TANNER LOCKE [address] [place], [address], [facility] 3 11:48:56 Acute bronchiti s with bronchosp asm 78766925 Active 2022 TANNER LOCKE [address] [place] [address], [address], [facility] 3 10:18:40 Smoker 66394513 Active 2022 TANNER LOCKE [address] [place] [address], [address], [facility] 3 10:20:27 Pneumonia 937136376 Active 2022 TANNER LOCKE [address] [place] [address], [address], [facility] 5 10:14:28 Tardive dyskinesi a 617393063 Active 2023 TANNER LOCKE [address] [place] [address], [address], [facility] 4 09:52:31 Hyperlipi demia 66100812 Active 2023 TANNER LOCKE [address] [place] [address], [address], [facility] 4 10:52:48 Dyspnea 566359189 Active 2023 TANNER LOCKE [address] [place] [address], [address], [facility] 4 10:54:03 Acute respirato ry failure 65689670 Active 2023 TANNER LOCKE [address] [place] [address], [address], [facility] 4 15:06:47 Mood disorder 25728705 Active 2023 TANNER LOCKE [address] [place], [address], [facility] 4 15:11:46 Acute bronchiti s 81394394 Active 2024 TANNER LOCKE [address] [place], [address], [facility] 5 10:23:01 Pain of knee region 8433025884 Active 2024 TANNER LOCKE [address] [place] [address], [address], [facility] 5 09:35:43 Increased frequency of urination 388951916 Active 2024 TANNER LOCKE [address] [place] [address], [address], [facility] 5 09:38:11 Bilateral lower limb edema 323596117 Active 2024 TANNER LOCKE [address] [place] [address], [address], [facility] 5 09:38:54 Basal cell carcinoma of upper eyelid 327470116 Active 2024 TANNER LOCKE [address] [place] [address], [address], [facility] 5 09:43:50 Acute exacerbat ion of chronic obstructi ve pulmonary disease 841372208 Active 2024 TANNER LOCKE [address] [place] [address], [address], [facility] 5 11:11:14 Problem Notes None recorded. Procedures Surgical History Date Name Laterality Status Provider Name and Address Organization Details Recorded Time 5 Most Recent Mammogram completed Patsy [facility] 12/29/2024 08:15:39 01/14/201 5 Colonoscopy completed [facility] 10/05/2019 11:11:27 Imaging Results None [...] Updated DateTime 4 157.48 cm 29.2 kg/m2 24857.4 2 g 111 /min 98 % 134/84 mm[Hg] Patsy [facility] 4 10:35:07 Date Recorded Body height Body mass index (BMI) Body weight Heart rate Oxygen saturation Systolic And Diastolic Provider Name and Address Organization Details Last Updated DateTime 3 157.48 cm 35.8 kg/m2 99180.1 g 86 /min 92 % 148/80 mm[Hg] [facility] 3 11:32:57 Date Recorded Body height Body mass index (BMI) Body weight Systolic And Diastolic Provider Name and Address Organization Details Last Updated DateTime 03/02/2024 157.48 cm 29.8 kg/m2 71634.56 g 128/80 mm[Hg] [facility] 03/02/2024 14:46:35 Date Recorded Oxygen saturation Provider Name and Address Organization Details Last Updated DateTime 03/17/2025 87 % Manan Bosch O [address] [place], [address], [facility] 04/20/2025 15:14:45 Date Recorded Oxygen saturation Heart rate Systolic And Diastolic Provider Name and Address Organization Details Last Updated DateTime 03/17/2025 93 % 68 /min 110/74 mm[Hg] SVITLANA WILEY [facility] 03/17/2025 09:26:23 Date Recorded Body height Body mass index (BMI) Body weight Heart rate Oxygen saturation Systolic And Diastolic Provider Name and Address Organization Details Last Updated DateTime 157.48 cm 35.8 kg/m2 07440.1 g 94 /min 92 % 138/80 mm[Hg] Court [facility] 3 10:09:27 Social History Question Answer Notes LastModified by Organizat ion Details LastModified Time Tobacco Smoking Status Current Every Day Smoker Not Available [facility] 07/26/2020 03:36:23 What Was The Date Of Your Most Recent Tobacco Screening? 03/02/2024 Information not available 03/02/2024 How Much Tobacco Do You Smoke? 1 PPD 5/6 Per Day [email or web address] Information not available 03/17/2025 Sex: Unknown Functional Status Question Answer Note LastModified by Organization D etails LastModified Time Do you or have you ever used any other forms of tobacco or nicotine? No [email or web address] Information not available 05/24/2023 Mental Status None recorded. Family History Nothing Reported. Medical History No medical history recorded. Gynecological History Statement/Question Response Most Recent Mammogram 12/24/2024 Obstetrics History GPAL:G 0 P 0 0 0 0 Immunizations Vaccine Type Date Status Note Provider Nam e and Address Organization Details Recorded Time COVID-19 vaccine, vector-nr, rS-Ad26, PF, 0.5 mL 01/28/2021 completed Jennifer Melendez [facility] 03/06/2022 08:36:41 Past Encounters Encounter ID Performer Location Encounter Start Date Encounter Closed Date Diagnosis/Indication Diagnosis SNOMED-CT Code Diagnosis ICD10 Code Diagnosis IMO Codes Diagnosis Note [id number] [facility] [address] [facility] [address] [place] [facility] [place] [address] 03/19/2018 10:27:43 03/19/2018 16:04:47 Acute bronchitis 12721297 J20.9 Tobacco de pendence syndrome 09403367 F17.[id number] [facility] [address] [facility],[place] [place] [facility] [place] [address] 07/11/2018 11:15:15 07/11/2018 13:37:08 Asthma 991620466 J45.909 worse with this infection so will need pred taper Pneumonia 000907778 J18. 9 treated with abx [id number] [facility] [address] [facility],[place] [address] 10/05/2019 11:00:17 10/05/2019 11:21:04 Asthma 529688041 J45.909 has been stable and is ok here Carpal jonathan shoaib syndrome of right wrist 0502113632 05893 G56.01 will cont the ibuprof Temporoman dibular joint disorder 16654610 M26.609 will cont the ibuprof Screening mammography 24 847604 Z12.31 Adult heal th examination 648878997 Z00.00 Tobacco de pendence syndrome 88850335 F17.[id number] [facility] [address] [facility] [address] 12/20/2021 10:25:58 12/20/2021 13:56:24 Chronic obstructive pulmonary disease 42529049 J44.9 we are going to begin her on trelegy will follow up in a few weeks samples of 200mg dose given Gastroesop hageal reflux disease 246174386 K21.9 seems stable Depressive disorder 6630 9007 F32.A follows her psychiatri st Multiple g astric ulcers 326142945 K25.9 had a signif icant bleed with hgb down to 7 we will order cbc and rechj uin 1 month Insomnia 020193900 G47.0 0 Panic disorder 920547733 F41.0 we will provide temporary lorazepam [id number] [facility] [address] [facility] [address] [address] 12/27/2021 11:18:02 01/01/2022 08:30:58 Insomnia 473390486 G47.09 will fu if still having issues picking Moderate r ecurrent major depression 01187523 F33.1 will start on sertraline and resubmit seroquel dosage [id number] [facility] [address] [facility] [address] [address] 12/29/2021 10:30:37 01/01/2022 12:14:24 Bipolar disorder 60005872 F31.0 stable Depressive disorder 3548 9007 F32.0 improved Anxiety 62746091 F41.[id number] [facility] [address] [facility] [address] [address] 01/19/2022 11:02:49 01/19/2022 11:47:03 Active or passive immunization 690703392 Z23 will consider shingles and Tdap Panic disorder 936951770 F41.0 lorazepam was not too helpful Chronic ob structive pulmonary disease 73343161 J44.9 we are going to begin her on trelegy will follow up in a few weeks samples of 200mg dose givenseems to be helping she is breathing better Anxiety 47601750 F41.9 as above she is doing ok overall and id feeling betterwe discussed the poss of new med for the bipolar she will need to sidcuss with her psych (caplyta) Temporoman dibular joint disorder 96425502 M26.609 will cont the ibuprof [id number] [facility] [address] [facility] [address] [address] 03/23/2022 08:40:47 03/23/2022 14:10:34 Melena 3333661 K92.1 will start work up for melena Cobalamin deficiency 190 270659 E53.8 needs refill Insomnia 822109938 G47.0 9 stable on medication Moderate r ecurrent major depression 16612992 F33.1 refill Gastroesop hageal reflux disease 677624172 K21.00 increase to 40 mg of omeprazole until source of bleed can be determined [id number] [facility] [address] [facility] [address] [address] [facility] [address] 07/25/2022 08:54:50 07/25/2022 12:22:55 Asthma 262335052 J45.40 will start on neb with solution Moderate r ecurrent major depression 66805702 F33.1 refill needed Insomnia 350178066 G47.0 9 stable on medication Iron defic iency anemia 94932679 D50.0 will refill for patientdid call it in but haven't gotten a refill request yet [id number] [facility] [address] [facility],[place] [employer] [place] [address] 10/10/2022 13:26:14 10/10/2022 16:09:00 Injury of knee 463639428 S89.91XA will fu with repeat XR in two weeks Swelling o f knee joint 453978997 M25.462 will start dual treatment with pred and tramadol Chronic ob structive pulmonary disease 50289659 J41.8 given samplestre legy works really well for her [id number] [facility] [address] [facility],[place] [address] 10/15/2022 14:34:37 10/15/2022 16:06:12 Injury of knee 997289927 S89.91XA still too much swelling US knee Swelling o f knee joint 959294798 M25.462 severe swellingun able to drain any fluid off the patientjus t bleeding Chronic ob structive pulmonary disease 04568264 J41.8 given samplestre legy works really well for her [id number] [facility] [address] [facility],[place] [address] 11/30/2022 13:40:24 11/30/2022 15:58:43 Moderate recurrent major depression 70941150 F33.1 as noted no major changes Screening mammography 24 153041 Z12.31 Prepatella r bursitis of right knee 1164593039 48948 M70.41 MUST be seen by a competent ortho Infection of prepatellar bursa of right knee [id number] M71.161 appears now to have a superficia l cellulitic appearance now spreading [id number] [facility] [address] [address] 02/25/2023 11:05:10 02/25/2023 13:13:36 Asthma [id number] J45.40 will start on neb with solution Exacerbati on of moderate persistent asthma [id number] J45.41 will start on standard treatment Moderate r ecurrent major depression 24162410 F33.1 refill needed Urinary incontinence 165 [id number] N39.[id number] [facility] Internal Medicine [address] [address] 05/24/2023 10:06:01 05/24/2023 11:27:12 Depressive disorder 72530778 F32.0 stable Acute bron chitis with bronchospasm 14701293 J20.9 will set up with prednisone + levoCOVID test negative Smoker [id number] F17.200 will start on wellbutrin for smoking [id number] Daljit Irby [facility] Internal Medicine [address] [address] 02/10/2024 10:22:57 02/10/2024 14:11:54 Urinary incontinence [id number] N39.42 will switch out medication and fu with kidney and urine check Depression screening 171 191232 Z13.31 negative score Cobalamin deficiency 190 049773 E53.8 needs refill Iron defic iency anemia 75999354 D50.0 will refill for patientdid call it in but haven't gotten a refill request yet Hyperlipidemia 95047323 E78.2 will set up with recheck blood work Chronic ob structive pulmonary disease 10504010 J41.8 given samplestre debora works really well for her Dyspnea 371711337 R06.00 will set up with pred taper [id number] Daljit Irby [facility] Internal Medicine [address] [address] 03/02/2024 14:34:00 03/03/2024 14:25:12 Depressive disorder 90942935 F32.0 F33.1 stable Mood disorder 58598038 F 31.0 stable Acute resp iratory failure 66888468 J96.00 stable Chronic ob structive pulmonary disease 74326845 J44.1 will f/u with pulm for evalordere d the PFT per pulm [id number] [facility] [address] [address] 03/17/2025 09:13:58 03/17/2025 10:24:07 Pain of knee region [id number] M25.561 M25.562 [id number] still too much swelling US knee Increased frequency of urination 109281198 R35.0 62902 Bilateral lower limb edema 551462568 R60.0 [id number] will set up with lab work Cobalamin deficiency 190 322827 E53.8 needs recheck blood work Iron defic iency anemia 63167868 D50.0 needs recheck BW Basal cell carcinoma of upper eyelid 680982845 C44.1121 [id number] will set up with derm for evaluation Health Concerns Section Related Observation LastModified by Organization Detai ls LastModified Time None Recorded Concern Status LastModified by Organization Details LastModified Time None Recorded Advance Directives Directive None Recorded Payers Insurance Date Sequence Insurance Name Policy Number Policy Chairez Covered Member ID Chairez Member ID Guarantor Name 04/06/2025 PAYMENT PLAN Lissette Sanches 03/17/2025 1 [place] - [facility] PRIOR TO 12/22/2022 - [facility] (MEDICAID) Lissette Sanches [id number] Lissette Sanches 03/17/2025 1 [facility] [id number] Lissette Sanches [id number] Lissette Sanches 03/17/2025 1 [place] [facility] Lissette Sanches [id number] Lissette Sanches 12/20/2021 1 *SELF PAY* Ba gilberto Sanches 07/06/2025 1 [employer] (EPO) [id number] Lissette Sanches [id number] Lissette Sanches Notes Date Note Type Note [...] if it is effective [facility] [address] [place], [address], [facility] 02/25/2023 11:58:55 3 text/html ROS as noted in the HPI c/o pneumonia patient has hx of smokingrecurrent pneumonia, hx of COPDhaving exacerbation with probable bronchitis start on steriods and abx cont inhalers at home [facility] [address] [place], [address], [facility] Internal Medicine 05/24/2023 10:31:11 4 text/html [...] given order for it [facility] [address] [place], [address], [facility] 02/10/2024 11:01:05 4 text/html [...] using her inhalers correctly [facility] [address] [place], [address], [facility] 03/02/2024 15:15:46 5 text/html ROS [...] work done to check her levels Daljit Irby, [address] [place], [address], [facility] Internal Medicine 04/20/2025 15:15:30 OBGyn Episode No OBEpisode recorded.
--- NOTE | 2025-09-01 05:57 | ED.SOB ---
HPI - SOB/Dyspnea General Chief Complaint: Dyspnea Stated Complaint: Hypoxic@78%on 3L, tachy HTN, duoneb in route Time Seen by Provider: 09/01/25 04:05 Source: patient, EMS and old records reviewed Mode of arrival: EMS Limitations: no limitations History of Present Illness ED Provider: LEIGH TAY Narrative: 64-year-old female with past medical history of pneumonia, anemia, hypoxia, COPD with chronic respiratory failure on 2-3 L nasal cannula daily, GERD, active smoking though she states she is trying while taking Chantix but still continues to smoke. She notes she just had teeth removed on Saturday she has been doing well she is taking oral amoxicillin. She comes in with increased wheezing, cough, O2 sats on 2 L nasal cannula by EMS reported to be 78%. she states her breathing has worsened over the last 2 days and today it became acutely worse. She denies any chest pain, fevers. She states she has no sick contacts. EMS put her on 6 L nasal cannula EN route and her sats maintained at 90% MD elicited complaint: shortness of breath and cough Pertinent past history: COPD Onset (ago): day(s) (2) Context: recent illness Timing: improved Severity: moderate Exacerbating factors: lying flat, exertion, movement and coughing Relieving factors: oxygen, rest, bronchodilators and upright position Known history of: COPD Associated symptoms: cough, wheezing and sputum production Treatment prior to arrival: oxygen and bronchodilator Related Data Home Medications ?Medication ?Instructions ?Recorded ?Confirmed duloxetine 60 mg capsule,delayed 60 mg PO BID 09/01/21 06/28/25 release sprinkle lamotrigine 200 mg tablet 200 mg PO BEDTIME 09/01/21 06/28/25 quetiapine 25 mg tablet 25 mg PO BEDTIME 02/14/22 06/28/25 omeprazole 40 mg capsule,delayed 40 mg PO DAILY@0630 07/03/22 06/28/25 release mirabegron 25 mg tablet,extended 25 mg PO DAILY 02/15/24 06/28/25 release 24 hr (Myrbetriq) albuterol sulfate 90 mcg/actuation 2 puff inhalation Q4H PRN 05/30/25 06/28/25 aerosol inhaler Shortness Of Breath Or Wheezing zolpidem 5 mg tablet 5 mg PO BEDTIME PRN Sleep 05/30/25 06/28/25 Previous Rx's ?Medication ?Instructions ?Recorded albuterol sulfate 2.5 mg/3 mL 2.5 mg (3 mL) inhalation QID PRN 02/18/24 (0.083 %) solution for nebulization Shortness Of Breath Or Wheezing #180 mL amlodipine 5 mg tablet 5 mg PO DAILY #90 tabs 02/18/24 fluticasone fur. 200 mcg-umeclid 1 inh inhalation DAILY #60 ea 07/09/25 62.5 mcg-vilant 25 mcg inhalat.powder (Trelegy Ellipta) prednisone 20 mg tablet 40 mg (2 x 20 mg) PO DAILY #10 tabs 07/14/25 cefuroxime axetil 500 mg tablet 500 mg PO BID #14 tabs 08/15/25 prednisone 20 mg tablet 40 mg (2 x 20 mg) PO DAILY #8 tabs 08/15/25 varenicline tartrate 0.5 mg (11)-1 See Rx Instructions PO PER PKG DIR 08/18/25 mg (42) tablets in a dose pack #53 ea (Chantix Starting Month Box) ipratropium 0.5 mg-albuterol 3 mg 3 ml inhalation Q6H PRN wheezing 08/23/25 (2.5 mg base)/3 mL nebulization 90 days #540 mL soln Allergies Allergy/AdvReac Type Severity Reaction Status Date / Time No Known Allergies Allergy Verified 09/01/25 04:12 Review of Systems Review of Systems: Constitutional : No Fever, No Chills ENT/Mouth : No Hoarseness, No sore throat, No Rhinorrhea Eyes: No Redness, No Discharge, No Vision Changes Cardiovascular : No Chest Pain, positive SOB, No Edema Respiratory : positive Cough, pos Sputum, positive Wheezing, Gastrointestinal : No Nausea, No Vomiting, No Diarrhea, No abdominal Pain Genitourinary : No Dysuria, No Hematuria Musculoskeletal : No joint pain, No Myalgias Skin : No rash Neuro : No Weakness, No Numbness, No Headache All other systems reviewed and are negative PMFSH Past Medical History Attestation statement: The following information was validated with the patient. Source: old records reviewed Medical History Mood disorder Tobacco use disorder Hx of head injury Anemia Panic anxiety syndrome Pelvic mass Anemia COPD (chronic obstructive pulmonary disease) Surgical History Hx of colonoscopy History of mandibular surgery H/O: hysterectomy Social History Social History Household Members: Other Household Members Other:: roommate Housing: House Do you presently have visiting nurse or other home services: No Alcohol intake: unknown Comment: Pt takes off chair alarm Patient Tobacco Use Status: Former Tobacco user Tobacco use type: Cigarette Cigarette Packs Per Day: 1 Cigarettes Per Day: 10 Years Smoked: 40 Smoked in Last 30 Days: Yes Second Hand Smoke Exposure: Yes Use of substances other than those prescribed or required for medical reasons: No Substance Use Type: Marijuana Advance Directives: No Advance Directives Information Provided: Yes Patient : No service: No Current occupational status: employed Current occupation: [employer]/ left hand dominant Physical Exam Vital Signs: Vital Signs: Last Vital Signs Temp 98.6 F 09/01/25 04:12 Pulse 99 09/01/25 09:02 Resp 20 09/01/25 09:02 BP 115/63 09/01/25 09:06 Pulse Ox 93 09/01/25 09:02 O2 Del Method BiPAP 09/01/25 09:02 O2 Flow Rate 3 09/01/25 06:31 FiO2 35 09/01/25 09:02 Oxygen Flow Rate 6 09/01/25 04:12 BMI result Body Mass Index 38.9 Appearance: Alert. Oriented X3. mild acute distress. Eyes: Pupils equal, round and reactive to light. ENT: Pharynx normal. Neck: Normal inspection. Neck supple. CVS: tachycardic heart rate and rhythm. Pulses normal. Respiratory: mild respiratory distress tachypnea and short phrases. Breath sounds diminished throughout with diffuse expiratory wheezes Abdomen: Soft and nontender. Skin: Skin warm and dry. Normal skin color. Normal skin turgor. Extremities: No lower extremity edema. Neuro: Oriented X 3. No motor deficit. No sensory deficit. CN2-12 intact Course Course Course Narrative: 6:13 AM 09/01/2025 (BENSON) VBG is worsening at this time I am going to start her on BiPAP 7:29 AM 09/01/2025 (LEIGH BRANDT): Patient is still sleepy though she is easily woken I am going to continue the BiPAP and recheck her VBG at 08:30 8:14 AM 09/01/2025 (LEIGH ): We made some more adjustments to her BiPAP setting I plan is to continue her on it and repeat a VBG at 930 9:36 AM 09/01/2025 (LEIGH DO): she is much more improved she is awake she is feisty very animated talking on the phone 10:29 AM 09/01/2025 (LEIGH DO): Patient has corrected I am going to take her off BiPAP and trial her home Medications Administered Discontinued Medications Generic Name Dose Route Start Last Admin Trade Name Freq PRN Reason Stop Dose Admin Acetaminophen 650 mg 09/01/25 10:28 09/01/25 10:38 Acetaminophen 325 Mg Tablet PO 09/01/25 10:29 650 mg ONCE ONE Administration Albuterol Sulfate 5 mg/ 0 mg 09/01/25 05:04 09/01/25 05:10 Albuterol/Ipratropium 3 ml INHALE 09/01/25 05:05 1 each ONCE ONE Administration Furosemide 20 mg 09/01/25 07:57 09/01/25 09:06 Furosemide 20 Mg/2 Ml Vial IVPUSH 09/01/25 07:58 20 mg ONCE ONE Administration Protocol Magnesium Sulfate 2 gm in 50 mls @ 25 mls/hr 09/01/25 04:24 09/01/25 05:35 Magnesium Sulfate/H2o IV 09/01/25 06:23 Infused ONCE ONE Infusion Azithromycin 500 mg/ Sodium 250 mls @ 125 mls/hr 09/01/25 04:24 09/01/25 06:52 Chloride IV 09/01/25 06:23 Infused ONCE ONE Infusion Methylprednisolone Sodium Succinate 60 mg 09/01/25 04:24 09/01/25 04:48 Methylprednisolone Sod Succ 125 Mg/2 Ml Vial IVPUSH 09/01/25 04:25 60 mg ONCE ONE Administration Medical Decision Making Medical Decision Making MDM Narrative: 64-year-old female with past medical history of pneumonia, anemia, hypoxia, COPD with chronic respiratory failure on 2-3 L nasal cannula daily, GERD, active smoking who is trying to quit now here with complaint of cough, wheezing, sputum production. She has no dental complaints although she did have recent extraction she was currently prescribed amoxicillin. At this time given her oxygen demands I am going to start her on IV steroids, IV nebs, IV azithromycin. She will get labs, VBG, chest x-ray, viral panel. I suspect based off her lung sounds in her reports of worsening dyspnea that this is likely a COPD exacerbation. She has no chest pain to suggest ACS or pulmonary embolus. Differential Diagnosis Differential Diagnoses: The differential diagnosis associated with the presentation includes viral syndrome, pneumonia, COPD, bronchospasm, CHF Admission/Observation Consideration of admission/observation: Escalation of care including admission/observation considered Given her presentation and need for BiPAP use she will need to be admitted medically for further treatment of her COPD Consult Healthcare Provider Management of the patient was discussed with: Hospitalist (will admit) Lab Data MDM Lab Attestation statement: I reviewed the patient's lab results. 09/01/25 04:40 09/01/25 04:40 Labs: Lab Results 09/01/25 09/01/25 09/01/25 Range/Units 04:38 04:40 04:46 WBC 10.6 (4.8-10.8) X10*3/uL RBC 4.86 (4.20-5.50) X10*6/uL Hgb 10.1 L (12.0-16.0) g/dl Hct 36.4 L (37.0-47.0) % MCV 74.9 L (80.0-98.0) fL MCH 20.8 L (27.0-33.0) pg MCHC 27.7 L (31.0-35.0) g/dl RDW 17.2 H (11.0-16.0) % Plt Count 307 (160-400) X10*3/uL MPV 9.5 (9.4-12.3) fL Immature Gran % (Auto) 1.8 H (0.0-0.4) % Neut % (Auto) 78.2 H (45-73) % Lymph % (Auto) 11.1 L (20-40) % [place] % (Auto) 7.2 (2-11) % Eos % (Auto) 1.0 (0-4) % Baso % (Auto) 0.7 (0-2) % Lymph # (Auto) 1.2 (1.2-4.9) X10*3/uL [place] # (Auto) 0.8 (0.1-1.2) X10*3/uL Eos # (Auto) 0.1 (0.0-0.4) X10*3/uL Baso # (Auto) 0.1 (0.0-0.2) X10*3/uL Abs Immat Gran (auto) 0.19 H (0.00-0.03) X10*3/uL Absolute Neuts (auto) 8.3 (2.0-8.3) x10*3/uL Absolute Nucleated RBC 0.030 H (0.0-0.012) X10*3/uL Nucleated RBC % (auto) 0.3 H (0.0-0.2) /100WBC VBG pH 7.29 L (7.32-7.43) VBG pCO2 78 mmHg VBG pO2 63 mmHg VBG HCO3 38 H (22-26) mmol/L VBG O2 Saturation 87.0 % VBG Base Excess 8.7 mmol/L Sodium 144 (135-145) mmol/L Potassium 4.1 (3.3-5.1) mmol/L Chloride 103 (96-108) mmol/L Carbon Dioxide 35 H (22-29) mmol/L Anion Gap 10 L (12-20) BUN 10 (9-16) mg/dL Creatinine 0.70 (0.5-1.4) mg/dL Estim Creat Clear Calc 89.2 Estimated GFR > 60 Random Glucose 146 H (60-115) mg/dL Lactic Acid 0.9 (0.5-2.0) mmol/L Calcium 9.1 (8.4-10.2) mg/dL Magnesium 2.1 (1.6-2.6) mg/dL Total Bilirubin 0.2 (0.0-1.0) mg/dL Direct Bilirubin < 0.2 (0.0-0.5) mg/dL AST 19 (5-31) U/L ALT 12 (0-31) U/L Alkaline Phosphatase 83 (39-117) U/L Troponin I High Sens < 2.7 (<3.5-17.0) ng/L C-Reactive Protein 0.51 H (< or = 0.50) mg/dL NT-Pro-B Natriuret Pep 528.6 H (<300) pg/mL Total Protein 6.0 L (6.5-8.0) g/dL Albumin 3.9 (3.5-5.0) g/dL Influenza Type A (PCR) NEGATIVE (Negative) Influenza Type B (PCR) NEGATIVE (Negative) RSV RNA Qual (PCR) NEGATIVE (Negative) SARS-CoV-2 RNA (RT-PCR) NEGATIVE (Negative) 09/01/25 09/01/25 Range/Units 06:06 10:22 WBC (4.8-10.8) X10*3/uL RBC (4.20-5.50) X10*6/uL Hgb (12.0-16.0) g/dl Hct (37.0-47.0) % MCV (80.0-98.0) fL MCH (27.0-33.0) pg MCHC (31.0-35.0) g/dl RDW (11.0-16.0) % Plt Count (160-400) X10*3/uL MPV (9.4-12.3) fL Immature Gran % (Auto) (0.0-0.4) % Neut % (Auto) (45-73) % Lymph % (Auto) (20-40) % [place] % (Auto) (2-11) % Eos % (Auto) (0-4) % Baso % (Auto) (0-2) % Lymph # (Auto) (1.2-4.9) X10*3/uL [place] # (Auto) (0.1-1.2) X10*3/uL Eos # (Auto) (0.0-0.4) X10*3/uL Baso # (Auto) (0.0-0.2) X10*3/uL Abs Immat Gran (auto) (0.00-0.03) X10*3/uL Absolute Neuts (auto) (2.0-8.3) x10*3/uL Absolute Nucleated RBC (0.0-0.012) X10*3/uL Nucleated RBC % (auto) (0.0-0.2) /100WBC VBG pH 7.26 L 7.37 (7.32-7.43) VBG pCO2 78 62 mmHg VBG pO2 99 60 mmHg VBG HCO3 36 H 36 H (22-26) mmol/L VBG O2 Saturation 98.0 87.0 % VBG Base Excess 6.3 9.2 mmol/L Sodium (135-145) mmol/L Potassium (3.3-5.1) mmol/L Chloride (96-108) mmol/L Carbon Dioxide (22-29) mmol/L Anion Gap (12-20) BUN (9-16) mg/dL Creatinine (0.5-1.4) mg/dL Estim Creat Clear Calc Estimated GFR Random Glucose (60-115) mg/dL Lactic Acid (0.5-2.0) mmol/L Calcium (8.4-10.2) mg/dL Magnesium (1.6-2.6) mg/dL Total Bilirubin (0.0-1.0) mg/dL Direct Bilirubin (0.0-0.5) mg/dL AST (5-31) U/L ALT (0-31) U/L Alkaline Phosphatase (39-117) U/L Troponin I High Sens (<3.5-17.0) ng/L C-Reactive Protein (< or = 0.50) mg/dL NT-Pro-B Natriuret Pep (<300) pg/mL Total Protein (6.5-8.0) g/dL Albumin (3.5-5.0) g/dL Influenza Type A (PCR) (Negative) Influenza Type B (PCR) (Negative) RSV RNA Qual (PCR) (Negative) SARS-CoV-2 RNA (RT-PCR) (Negative) Independent Interpretation I performed an independent interpretation of an: EKG and Plain X-Ray (No pneumonia) Interpretation: Rate: 101 Rhythm: sinus tachycardia [place]: normal Normal P waves. Normal ELIS. Normal QRS complex. ST T wave : inverted T-wave in lead V1, poor R-wave progression in the anterior leads, no ST-elevation qTC: 446 prior studies: no acute ischemia The study has been interpreted contemporaneously by me. . Radiology Impression Discussion of test interpretation with radiology: I have reviewed the radiologist's reading. Independent Historian Clinical information obtained from an independent historian. History obtained from or confirmed by: EMS External Record Review External record reviewed: Inpatient record, Outpatient record, Prior outpatient labs and Prior outpatient radiology Critical Care Time Critical Care Time Critical Care Time: Yes Total Critical Care Time: 75 Attestation: Time is exclusive of separately billable procedures. Time includes: direct patient care, patient reassessment, coordination of patient care, interpretation of data (laboratory data, pulse oximetry, venous blood gases and chest xrays), review of patient's medical records, medical consultation and documentation of patient care. Procedures excluded from critical care time: central intravenous line placement and electrocardiography. I attest to this time spent taking care of the patient Discharge Plan Discharge Clinical Impression: Chronic respiratory failure with hypoxia, Acute exacerbation of chronic obstructive airways disease Patient Disposition: Admitted As Inpatient
[2025-09-01 06:08] LABS: Venous Blood Gas Refer to POC result
[2025-09-01 06:11] LABS: VBG HCO3 36 mmol/L (22-26); VBG O2 % Saturation 98.0 %
--- NOTE | 2025-09-01 06:33 | PC.NURSE ---
RT at bedside, placing pt on Bipap at this time
[2025-09-01] MEDS: Furosemide 20 MG/2 ML VIAL IVPUSH (09:06)
[2025-09-01 10:26] LABS: VBG HCO3 36 mmol/L (22-26); VBG O2 % Saturation 87.0 %
--- NOTE | 2025-09-01 10:59 | PC.NURSE ---
Pt taken off BIPAP @1030 with RT at bedside. Placed on 2L NC O2 with good effect- O2 sats 88%-93%.
--- NOTE | 2025-09-01 11:25 | PC.NURSE ---
Pt O2 sat decreased 84-86%, O2 increased to 4L NC with good effect. O2 sat >88% on 4L, respirations even and unlabored. MD and RT aware.
--- NOTE | 2025-09-01 12:01 | PHA.MEDREC ---
Addendum entered by Conner Baires amita 09/01/25 12:03: Pt has 4 doses remaining of Amoxicillin script from 08/27. Original Note: Pharmacy Consult ? Medication Reconciliation Pharmacy has completed the medication reconciliation. Spoke with pt to confirm medications. Pt is non-adherent, she claims to still be on Cymbalta but has not filled this since December.
--- NOTE | 2025-09-01 12:12 | P.HPHOSP_ITS ---
History of Present Illness Date of Service: 09/01/25 Chief Complaint: dyspnea Pt with medical history of Anemia, ch hypoxia on 2L nc at baseline, COPD, gerd, BPD, tobacco dependence presented to ed with acute onset of SOB. Pt states that she had her teeth removed on saturday and is taking amoxicillin for that. She has been feeling little SOB for last 2 days but this am around 3 am she became acutely SOB and felt like she could not breath. EMS was called and she was brought into ed. Per ems her O2 sat was 78% and had to be placed on 6 L nc. She denies any nausea, vomiting, chest pain, abd pain, dental pain, urinary sx or focal weakness. She denies any sick contacts but works in [employer]. She ambulates independently at home. In ed she received Iv Mg and Solumedrol with azithromycin and 20 mg IV Lasix with good response. Review of Systems 2 Review of Systems: Constitutional : No Fever, No Chills ENT/Mouth : No Hoarseness, No sore throat, Eyes: No Redness, No Discharge, No Vision Changes Cardiovascular : No Chest Pain, positive SOB, No Edema Respiratory : positive Cough, pos Sputum, positive Wheezing, Gastrointestinal : No Nausea, No Vomiting, No Diarrhea, No abdominal Pain Genitourinary : No Dysuria, No Hematuria Musculoskeletal : No joint pain, No Myalgias Skin : No rash Neuro : No Weakness, No Numbness, No Headache [facility] Medical History (Updated 09/01/25 @ 12:29 by Jackie Sandoval MD) HTN (hypertension) Mood disorder Tobacco use disorder Hx of head injury Anemia Panic anxiety syndrome Pelvic mass Anemia COPD (chronic obstructive pulmonary disease) Surgical History Hx of colonoscopy History of mandibular surgery H/O: hysterectomy Social History Household Members: Other Household Members Other:: roommate Housing: House Do you presently have visiting nurse or other home services: No Alcohol intake: unknown Comment: Pt takes off chair alarm Patient Tobacco Use Status: Former Tobacco user Tobacco use type: Cigarette Cigarette Packs Per Day: 1 Cigarettes Per Day: 10 Years Smoked: 40 Smoked in Last 30 Days: Yes Second Hand Smoke Exposure: Yes Use of substances other than those prescribed or required for medical reasons: No Substance Use Type: Marijuana Advance Directives: No Advance Directives Information Provided: Yes Patient : No service: No Current occupational status: employed Current occupation: [employer]/ left hand dominant Meds Allergies Allergy/AdvReac Type Severity Reaction Status Date / Time No Known Allergies Allergy Verified 09/01/25 04:12 Active Medications: Current Medications Acetaminophen (Acetaminophen 325 Mg Tablet) 650 mg PO Q6H PRN PRN Reason: Pain, Mild 1-3,fever,headache Albuterol/Ipratropium (Albuterol/Iprat 2.5/0.5mg 3 Ml Ampul.Neb) 3 ml INHALE Q6H PRN PRN Reason: Wheezing Amlodipine Besylate (Amlodipine Besylate 5 Mg Tablet) 5 mg PO DAILY JAHAIRA; Protocol Calcium Carbonate (Calcium Carbonate 750 Mg Tab.Chew) 750 mg PO Q4H PRN PRN Reason: Heartburn Fluticasone/Umeclidinium/Vilanterol (Fluticasone/Umeclidinium/Vilanterol 200/62.5/25 Blst.W.Dev) 1 puff INHALE DAILY [facility] Lamotrigine (Lamotrigine 100 Mg Tablet) 200 mg PO BEDTIME [facility] Magnesium Hydroxide (Milk Of Magnesia 30 Ml Oral.Susp) 30 ml PO DAILY PRN PRN Reason: Constipation Melatonin (Melatonin 3 Mg Tablet) 6 mg PO BEDTIME PRN PRN Reason: Insomnia Mirabegron (Mirabegron 25 Mg Tab.Er.24h) 25 mg PO DAILY [facility] Non-Formulary Medication (Duloxetine) 60 mg PO BID [facility] Omeprazole (Omeprazole 40 Mg Capsule.Dr) 40 mg PO DAILY@0630 [facility] Quetiapine Fumarate (Quetiapine Fumarate 25 Mg Tablet) 25 mg PO BEDTIME [facility] Sodium Chloride (0.9 % Sodium Chloride Flush 3 Ml Syringe) 3 ml IVFLUSH QSHIFT [facility] Zolpidem Tartrate (Zolpidem Tartrate 5 Mg Tablet) 5 mg PO BEDTIME [facility] Home Medications ?Medication ?Instructions ?Recorded ?Confirmed ?Last Taken ?Type duloxetine 60 mg capsule,delayed 60 mg PO BID 09/01/21 09/01/25 08/31/25 History release sprinkle lamotrigine 200 mg tablet 200 mg PO BEDTIME 09/01/21 1 11/02/24 08/31/25 History quetiapine 25 mg tablet 25 mg PO BEDTIME 02/14/2208/31/25 History omeprazole 40 mg capsule,delayed 40 mg PO DAILY@0630 1 09/01/25 08/31/25 History release mirabegron 25 mg tablet,extended 25 mg PO DAILY 09/01/25 08/31/25 History release 24 hr (Myrbetriq) albuterol sulfate 90 mcg/actuation 2 puff inhalation Q 4H PRN 05/30/25 09/01/25 Unknown History aerosol inhaler Shortness Of Breath Or Wheez ing zolpidem 5 mg tablet 5 mg PO BEDTIME Sleep 09/01/25 08/31/25 History amoxicillin 500 mg tablet 500 mg PO Q8H 09/01/2509/0108/31/25 History ibuprofen 800 mg tablet 800 mg PO TID PRN Pain 09/0109/01/25 Unknown History varenicline tartrate 0.5 mg (11)-1 1 ea PO BID 5 09/01/25 08/31/25 History mg (42) tablets in a dose pack ([employer] Starting Month Box) Physical Exam 2 Vital Signs and Narrative: Vital Signs: Last Vital Signs Temp 98.6 F 09/01/25 04:12 Pulse 99 09/01/25 09:02 Resp 20 09/01/25 09:02 BP 115/63 09/01/25 09:06 Pulse Ox 93 09/01/25 09:02 O2 Del Method BiPAP 09/01/25 09:02 O2 Flow Rate 3 09/01/25 06:31 FiO2 35 09/01/25 09:02 Oxygen Flow Rate 6 09/01/25 04:12 BMI result Body Mass Index 38.9 Appearance: Alert. Oriented X3. mild acute distress. Eyes: Pupils equal, round and reactive to light. ENT: Pharynx normal. Neck: Normal inspection. Neck supple. CVS: sinus tachycardic on tele in 90ies Respiratory: on 6 l nc, diminished BS, exp wheezing , no rales Abdomen: Soft and nontender. non distended Skin: Skin warm and dry. Normal skin color. Normal skin turgor. Extremities: No lower extremity edema. Neuro: Oriented X 3. No motor deficit. No sensory deficit. CN2-12 intact Results Labs 09/01/25 04:40 09/01/25 04:40 Labs: Laboratory Results - last 24 hr 09/01/25 09/01/25 09/01/25 04:38 04:40 04:46 MCV 74.9 L MCH 20.8 L MCHC 27.7 L RDW 17.2 H Plt Count 307 MPV 9.5 Immature Gran % (Auto) 1.8 H Neut % (Auto) 78.2 H Lymph % (Auto) 11.1 L [place] % (Auto) 7.2 Eos % (Auto) 1.0 Baso % (Auto) 0.7 Lymph # (Auto) 1.2 [place] # (Auto) 0.8 Eos # (Auto) 0.1 Baso # (Auto) 0.1 Abs Immat Gran (auto) 0.19 H Absolute Neuts (auto) 8.3 Absolute Nucleated RBC 0.030 H Nucleated RBC % (auto) 0.3 H VBG pH 7.29 L VBG pCO2 78 VBG pO2 63 VBG HCO3 38 H VBG O2 Saturation 87.0 VBG Base Excess 8.7 Anion Gap 10 L Estim Creat Clear Calc 89.2 Estimated GFR > 60 Random Glucose 146 H Lactic Acid 0.9 Calcium 9.1 Magnesium 2.1 Total Bilirubin 0.2 Direct Bilirubin < 0.2 AST 19 ALT 12 Alkaline Phosphatase 83 Troponin I High Sens < 2.7 C-Reactive Protein 0.51 H NT-Pro-B Natriuret Pep 528.6 H Total Protein 6.0 L Albumin 3.9 Influenza Type A (PCR) NEGATIVE Influenza Type B (PCR) NEGATIVE RSV RNA Qual (PCR) NEGATIVE SARS-CoV-2 RNA (RT-PCR) NEGATIVE 09/01/25 09/01/25 06:06 10:22 MCV MCH MCHC RDW Plt Count MPV Immature Gran % (Auto) Neut % (Auto) Lymph % (Auto) [place] % (Auto) Eos % (Auto) Baso % (Auto) Lymph # (Auto) [place] # (Auto) Eos # (Auto) Baso # (Auto) Abs Immat Gran (auto) Absolute Neuts (auto) Absolute Nucleated RBC Nucleated RBC % (auto) VBG pH 7.26 L 7.37 VBG pCO2 78 62 VBG pO2 99 60 VBG HCO3 36 H 36 H VBG O2 Saturation 98.0 87.0 VBG Base Excess 6.3 9.2 Anion Gap Estim Creat Clear Calc Estimated GFR Random Glucose Lactic Acid Calcium Magnesium Total Bilirubin Direct Bilirubin AST ALT Alkaline Phosphatase Troponin I High Sens C-Reactive Protein NT-Pro-B Natriuret Pep Total Protein Albumin Influenza Type A (PCR) Influenza Type B (PCR) RSV RNA Qual (PCR) SARS-CoV-2 RNA (RT-PCR) Assessment and Plan (1) Morbid obesity: Status: Acute (2) Chronic respiratory failure with hypoxia: Status: Acute (3) Acute exacerbation of chronic obstructive airways disease: Status: Acute (4) Bipolar disease, chronic: Status: Acute Plan Pt with COPD,active smoker and ch hypoxia on 2 L nc presented to ed with acute hypoxic resp failure requiring BiPAP in ed. Acute on chronic hypoxic respiratory failure: COPD exacerbation Active smoker Presented with acute onset of SOB, requiring BiPAp briefly, likely COPD exacerbation resulting on acute hypoxia in the setting of ongoing tobacco use afebrile, no leucocytosis, CXR non acute, resp panel -ve, trops -ve, ekg no ST- T w changes probnp mildly elevated received Ib Mg, solu medrol, and azithromycin in ed with good response, currently on 6 L Plan: cont azithromycin for 5 days cont prednisone 40 mg daily and dc on taper cont trelegy ellipta and duo nebs nicotine patch for tobacco dependence supplemental O2 , goal O2 sats 88-92 , wean to baseline of 2 L Guainefensin for cough prn HTN: cont amlodipine BPD/ anxiety cont duloxetine, lamictal,, seroquel, Overactive bladder: cont myrbetriq Insomnia: cont ambein DVT px: lovenox sc Diet: cardiac Code status: DNR/DNI OMN: Acute on chronic hypoxia , Pt will need 2 [place] hosp stay due to COPD exacerbation resulting on acute on chronic hypoxic resp failure. Quality Stroke Does the patient have a stroke diagnosis?: No VTE Prior VTE?: No VTE Risk Level:: Medical - moderate - high VTE Device Contraindication: N/A - Device Ordered VTE Drug Contraindication: N/A - Med Ordered
[2025-09-01 12:29] LABS: Venous Blood Gas Refer to POC result
[2025-09-01] MEDS: Fluticasone/Umeclidinium/Vilanterol 200/62.5/25 BLST.W.DEV 1 PUFF INHALE (13:06)
[2025-09-01] MEDS: Albuterol/Iprat 2.5/0.5MG 3 ML AMPUL.NEB INHALE (19:14)
--- NOTE | 2025-09-01 19:30 | PC.NURSE ---
Assumed care of pt, presents to the ED for Shortness of breath x 2days SpO2 of 78% at home, pt is on 2L NC at home, Hx of COPD, currently pt is on 4L, AAOx4, denies pain at this moment, respirations are equal with chest rise and fall
[2025-09-02] VITALS (9 sets, daily range): BP systolic 102–158; BP diastolic 68–75; PULSE 96–101; RESP 18–22; TEMP 35–36.8; O2SAT 91–98; BMI 40.8
[2025-09-02 04:03] LABS: Hematocrit 35.1 % (37.0-47.0); Hemoglobin 10.2 g/dl (12.0-16.0); Mean Corpuscular HGB Conc 29.1 g/dl (31.0-35.0); Mean Corpuscular Hemoglobin 20.7 pg (27.0-33.0); Mean Corpuscular Volume 71.3 fL (80.0-98.0); NRBC Abs Auto 0.000 X10*3/uL (0.0-0.012); NRBC Pct Auto 0.0 /100WBC (0.0-0.2); Platelet Count 304 X10*3/uL (160-400); Red Blood Count 4.92 X10*6/uL (4.20-5.50); White Blood Count 8.3 X10*3/uL (4.8-10.8)
--- NOTE | 2025-09-02 05:07 | HO.NURTONUR ---
64 F DNR/DNI presented to the with worsening shortness of breath x2 days from home, per EMS pt was 78% at home, Hx of COPD pt is normally on 2L at home, SpO2 improved with 4L NC to 90%, Pt placed on BiPAP for a brief time with improvement , pt currently on oxymask at 6L 96%, resting comfortably in the bed, nad, VSS, PT being admitted for COPD exacerbation
[2025-09-02] MEDS: Albuterol/Iprat 2.5/0.5MG 3 ML AMPUL.NEB INHALE (06:35)
--- NOTE | 2025-09-02 06:51 | PC.NURSE ---
Patient arrived from ED as admit just before 06:00, admitted with copd exacerbation. Pt is A&Ox4, c/o anxiety, jittery feeling. Pt is an active smoker. Pt declined offered NRT; states she take chantix at home though this is not in formulary per MD; pt advised to have patient family bring it from home for pharmacy here to barcode for continued administration as per MD written order. Pt also requested ativan for anxiety; MD notified with order placed and med given. Pt appears more calm and less fidgety on safe start this morning 07:00 hour. Placed on tele, NSR. Pt on 5L oxymask on arrival (pt reports she wears 2L nc at baseline). Spo2 92-93%. Denies sob though pt did request a breathing treatment . RT notified and came to administer. Pt reports she had two teeth pulled on the left side of her mouth, requested amoxicillin order, communicated to MD. Awaiting order verification for abx. Pt refusing to wear yellow fall risk socks. Educated on fall risk measures and call torres. Bed alarm on, bed low/locked, safety measures in place.
[2025-09-02] MEDS: Fluticasone/Umeclidinium/Vilanterol 200/62.5/25 BLST.W.DEV 1 PUFF INHALE (08:42)
--- NOTE | 2025-09-02 09:04 | MHC.CM.PN ---
CM attempted assessment of pt., asked who her PCP is, she began yelling, CM left the room.
[2025-09-02] MEDS: 0.9 % Sodium Chloride Flush 3 ML SYRINGE IVFLUSH (09:56)
--- NOTE | 2025-09-02 12:51 | PM.DS ---
DS: Providers Provider Date of admission: 09/01/25 11:21 Date of discharge: 09/02/25 Primary care physician: Unknown Physician Attending physician on discharge: Alondra Whiteside Discharging clinician: Alondra Whiteside DS: Diagnosis Discharge Diagnosis (1) Morbid obesity: Status: Acute (2) Chronic respiratory failure with hypoxia: Status: Acute (3) Acute exacerbation of chronic obstructive airways disease: Status: Acute (4) Bipolar disease, chronic: Status: Acute DS: Summary Hospital Course Hospital Course: HPI:64 y/o F Anemia, ch hypoxia on 2L nc at baseline, COPD, gerd, BPD, tobacco dependence presented to ed with acute onset of SOB. Pt states that she had her teeth removed on saturday and is taking amoxicillin for that. She has been feeling little SOB for last 2 days but this am around 3 am she became acutely SOB and felt like she could not breath. EMS was called and she was brought into ed. Per ems her O2 sat was 78% and had to be placed on 6 L nc. She denies any nausea, vomiting, chest pain, abd pain, dental pain, urinary sx or focal weakness. She denies any sick contacts but works in [employer]. She ambulates independently at home. In ed she received Iv Mg and Solumedrol with azithromycin and 20 mg IV Lasix with good response. Hospital course:Pt with COPD,active smoker and ch hypoxia on 2 L nc presented to ed with acute hypoxic resp failure requiring BiPAP in ed. Patient was admitted for Acute on chronic hypoxic respiratory failure secondary toCOPD exacerbation -Presented with acute onset of SOB, requiring BiPAp briefly, likely COPD exacerbation resulting on acute hypoxia in the setting of ongoing tobacco use :afebrile, no leucocytosis, CXR non acute,resp panel -ve, trops -ve, ekg no ST- T w changes,probnp mildly elevated . Patient was started on nebs, steroids, antibiotics, cough medication: With the above supportive care patient seems to be improved significantly, shortness of breath improved, sats are stable, ambulating with the staff. Plan: complete home amoxicillin( for tooth infection) -seems improved ,will dc azithromcycin since patient is on amoxicillin,now at her baseline ,walked with staff . going home with steriods, at baseline uses home oxygen 2-3 liter s Above management discussed with the patient detail length she understand and in agreement with the above plan, time spent 50 minute, all question answered, staff was present during conversation. Time Attestation Total time managing care of this patient today: 45 mintues. Discharge Coordination Time (in mins): 45 min Quality: Safe Use of Opioids Does Pt have an Active Cancer Diagnosis on the Problem List?: No Quality: Stroke Does the patient have a stroke diagnosis?: No Physical Exam Exam: Exam: Appearance: Alert. Oriented X3. CVS:rrr, s1s2 heard. Respiratory: air entry fair , no rales or wheezing Abdomen: Soft and nontender. non distended Skin: Skin warm and dry. Normal skin color. Normal skin turgor. Extremities: No lower extremity edema. Neuro: Oriented X 3. No motor deficit. No sensory deficit. CN2-12 intact Vital Signs: Vital Signs: Last Vital Signs Temp 98.0 F 09/02/25 11:22 Pulse 99 09/02/25 11:22 Resp 20 09/02/25 11:22 BP 127/69 09/02/25 11:22 Pulse Ox 93 09/02/25 11:22 O2 Del Method Nasal Cannula 09/02/25 11:22 O2 Flow Rate 4 09/02/25 11:22 FiO2 35 09/01/25 09:02 Oxygen Flow Rate 6 09/01/25 04:12 BMI result Body Mass Index 40.8 DS: Data Data Completed and Pending Completed studies during hospitalization [Text1]: Procedures Assistance with Respiratory Ventilation, Less than 24 Consecutive Hours, Continuous Positive Airway Pressure (05/29/25) Excision of Stomach, Pylorus, Via Natural or Artificial Opening Endoscopic, Diagnostic (09/23/21) Introduction of Remdesivir Anti-infective into Peripheral Vein, Percutaneous Approach, [employer] 5 (05/29/25) Transfusion of Nonautologous Red Blood Cells into Peripheral Vein, Percutaneous Approach (09/23/21) Labs on day of discharge: Laboratory Results - last 24 hr 09/02/25 03:57 WBC 8.3 RBC 4.92 Hgb 10.2 L Hct 35.1 L MCV 71.3 L MCH 20.7 L MCHC 29.1 L RDW 17.2 H Plt Count 304 MPV 9.8 Absolute Nucleated RBC 0.000 Nucleated RBC % (auto) 0.0 Preliminary micro results at discharge 09/01/25 04:46 Blood Culture - Preliminary Blood - Venous No growth after 24 hours. 09/01/25 04:40 Blood Culture - Preliminary Blood - Venous No growth after 24 hours. Imaging Chest x-ray: Radiologist's impression: cxr: 1. No significant interval change. Discharge Plan Discharge Anticipated Discharge Date/Time: 09/02/25 12:43 Patient Disposition: Home, Self-Care Discharge Diagnosis: Acute on chronic hypoxic respiratory failure: COPD exacerbation Referrals: Physician,Unknown J [Primary Care Provider, Medical] - 1 Week Discharge Medications: New prednisone 20 mg Tablet 40 mg PO DAILY Qty: 8 0RF guaifenesin 100 mg/5 mL Liquid 100 mg PO Q6H PRN (Reason: Cough) Qty: 118 0RF nicotine 14 mg/24 hr Patch 24 Hour 14 mg transdermal DAILY Qty: 7 0RF amoxicillin 500 mg Capsule 500 mg PO Q8H Qty: 1 0RF Rx Instructions: complete home amoxicillin Continued ipratropium-albuterol 0.5 mg-3 mg(2.5 mg base)/3 mL solution for nebulization 3 ml inhalation Q6H PRN (Reason: wheezing) 90 Days Qty: 540 3RF lamotrigine 200 mg Tablet 200 mg PO BEDTIME duloxetine 60 mg Capsule, Delayed Rel Sprinkle 60 mg PO BID quetiapine 25 mg tablet 25 mg PO BEDTIME omeprazole 40 mg capsule,delayed release(DR/EC) 40 mg PO DAILY@0630 Rx Instructions: After 8 weeks to take it daily mirabegron [Myrbetriq] 25 mg tablet extended release 24 hr 25 mg PO DAILY amlodipine 5 mg Tablet 5 mg PO DAILY Qty: 90 0RF Protocol: Hold for SBP< HOLD for SBP < : 90 albuterol sulfate 2.5 mg /3 mL (0.083 %) solution for nebulization 2.5 mg inhalation QID PRN (Reason: Shortness Of Breath Or Wheezing) Qty: 180 1RF zolpidem 5 mg tablet 5 mg PO BEDTIME albuterol sulfate 90 mcg/actuation HFA aerosol inhaler 2 puff inhalation Q4H PRN (Reason: Shortness Of Breath Or Wheezing) ibuprofen 800 mg tablet 800 mg PO TID PRN (Reason: Pain) varenicline tartrate [Chantix Starting Month Box] 0.5 mg (11)- 1 mg (42) Tablets,Dose Pack 1 ea PO BID Trelegy Ellipta 200-62.5-25 mcg blister with device 1 inh inhalation DAILY Qty: 60 3RF Discontinued amoxicillin 500 mg tablet 500 mg PO Q8H Rx Instructions: Prescribed 08/27 for 7 days, pt has 4 doses remaning. Discharge Orders: Discharge Order (Routine); Ordered 09/02/25 Ordered By: Alondra Whiteside Diet: Advance to usual diet Activity on Discharge: As tolerated Stand Alone Forms: Patient Portal Discharge page, Work/School Release Print Language: Vietnamese Care Plan Goals: acute on ch respiratory failure sec to copd excerebation -started on steriods , nebs ,antibiotics,complete home amoxicillin( for tooth infection) -seems improved ,will dc azithromcycin since patient is on amoxicillin,now at her baseline ,walked with staff . going home with steriods, at baseline uses home oxygen 2-3 liter s Health Concerns: as above. Plan of Treatment: as above. Assessment: as above . Discharge Date/Time: 09/02/25 16:04
== END 2025-09-02 16:04 | disposition home or self-care (01) | DRG 190 ==
LOC: HO.ED 09:37 → HO.EDOVER 11:24 → HO.IMC 09-02 05:25
PROVIDERS: Admitting Provider Hospitalist; Emergency Provider Emergency Medicine; PCP Internal Medicine; Visit Provider Internal Medicine
DX: J44.1 Chronic obstructive pulmonary disease with (acute) exacerbation (principal); J96.21 Acute and chronic respiratory failure with hypoxia; G47.00 Insomnia, unspecified; Z66 Do not resuscitate; F41.9 Anxiety disorder, unspecified; F31.9 Bipolar disorder, unspecified; N32.81 Overactive bladder; F17.210 Nicotine dependence, cigarettes, uncomplicated; Z71.6 Tobacco abuse counseling; Z20.822 Contact with and (suspected) exposure to COVID-19; Z99.81 Dependence on supplemental oxygen; Z79.899 Other long term (current) drug therapy
CPT/HCPCS: 36415; 71045; 80048; 80076; 82803; 83605; 83735; 83880; 84484; 85025; 85027; 86140; 87040; 87637; 93005; 94640; 94660; 99285; J0456; J1650; J1938; J2919; J3475

== ENCOUNTER → 2025-09-01 04:25 | Outpatient (BNV) | payer OTHER, SELFPAY | PROVIDERS: Emergency Provider Emergency Medicine; Visit Provider Internal Medicine Cardiovascular Disease | DX: R00.0 Tachycardia, unspecified (principal) | CPT/HCPCS: 93010 ==

== ENCOUNTER → 2025-09-01 04:25 | Outpatient (BNV) | payer OTHER, SELFPAY | PROVIDERS: Emergency Provider Emergency Medicine; Visit Provider Radiology Diagnostic Radiology | DX: R05.9 Cough, unspecified (principal) | CPT/HCPCS: 71045 ==

== ENCOUNTER → 2025-09-01 11:21 | Outpatient (BNV) | payer OTHER, SELFPAY | PROVIDERS: Admitting Provider Hospitalist; Emergency Provider Emergency Medicine; Visit Provider Hospitalist | DX: E66.01 Morbid (severe) obesity due to excess calories (principal); J96.11 Chronic respiratory failure with hypoxia; J44.1 Chronic obstructive pulmonary disease with (acute) exacerbation; Z68.39 Body mass index [BMI] 39.0-39.9, adult; F31.9 Bipolar disorder, unspecified | CPT/HCPCS: 99239 ==

== ENCOUNTER 2025-09-22 09:22 | Outpatient (AMB) | payer OTHER, SELFPAY ==
--- NOTE | 2025-09-22 09:25 | MHC.OFFVIS ---
Vital Signs 09/22/25 09:29 Height 5 ft 2 in Weight 222 lb BMI 40.6 BP 122/66 Blood Pressure Location Rt brachial Position Sitting Pulse 106 H Pulse Source Pulse Oximeter Pulse Oximetry (%) 90 L Oxygen Delivery Method Nasal Cannula Oxygen Flow Rate 3 Intake Visit Reasons: Hypoxic/Hypercapnic Respiratory Failure Allergies No Known Allergies Allergy (Verified 09/22/25 09:32) HPI Comments Details: Lissette is a pleasant 64 year old female, former 40+ pack year smoker, recently quit smoking to weeks ago, with underlying COPD on 2 L home O2, HTN, and bipolar disorder. She was initially referred by [facility] after multiple admissions for acute respiratory failure secondary to COPD exacerbations/viral infections. Since the last visit she was seen in the emergency room on 08/15 for a COPD exacerbation and was subsequently admitted to the hospital from September 01 to the for another exacerbation. During her hospitalizations, she was treated with antibiotics, prednisone, and Lasix. Chest x-rays were negative for pneumonia but showed interstitial prominence, suggestive of fluid. Currently, the patient reports her oxygen saturation is usually 88-90% and she has increased her oxygen use to 3 liters. She experiences significant shortness of breath with walking but denies orthopnea or BLE edema. She also reports chest congestion with difficulty expectorating phlegm, wheezing, and chest tightness that improves with prednisone which started this morning. Her home medication regimen includes Trelegy used daily, nebulizer treatments four times a day, and an albuterol inhaler as needed. She rinses her mouth after using Trelegy. She recently quit smoking two weeks ago with the help of Chantix, which she is tolerating well and has used successfully in the past to quit for three years. The patient does not have a sampling theory teacher and has not had an ultrasound of her heart, though EKGs are performed during hospital visits. She denies any swelling in her legs. A prior BNP level in the hospital was elevated at 528. A recent overnight oxygen test while on 2 liters of oxygen showed she was hypoxic (less than 88%) for 18 minutes and had 33 desaturation events, which is suggestive of sleep apnea. She reports loud snoring, frequent awakenings at night, and sometimes feels tired upon waking. She has never been diagnosed with sleep apnea. Pulmonology History - History of Chronic Obstructive Pulmonary Disease (COPD). - Recent emergency room visit (08/15) and hospitalization (September 01-) for COPD exacerbations. - Treatments during hospitalizations included antibiotics, prednisone, and Lasix. - Inpatient chest x-rays showed interstitial prominence without pneumonia. - Uses home oxygen, currently at 3 liters. - Overnight oximetry on 2L of O2 revealed nocturnal hypoxia, with oxygen levels below 88% for 18 minutes. - History of COVID and pneumonia prior to the two most recent hospitalizations for COPD. - Current medications include Trelegy, nebulizer treatments, and an albuterol rescue inhaler. - Denies a history of asthma. Results - Labs: BNP during recent hospitalization was 528. - Imaging: Chest X-rays during recent hospitalization showed interstitial prominence without evidence of pneumonia. - Tests and Diagnostics: Overnight oximetry on 2L of O2 showed the patient was hypoxic (<88% saturation) for 18 minutes and had 33 desaturation events. [facility] Medical History (Updated 09/22/25 @ 11:53 by Rosario Villanueva NP) HTN (hypertension) Mood disorder Tobacco use disorder Hx of head injury Anemia Panic anxiety syndrome Pelvic mass Anemia COPD (chronic obstructive pulmonary disease) Surgical History Hx of colonoscopy History of mandibular surgery H/O: hysterectomy Social History Household Members: Friend(s) and Other Household Members Other:: roomate Housing: Apartment Do you presently have visiting nurse or other home services: No Alcohol intake: unknown Comment: Pt takes off chair alarm Patient Tobacco Use Status: Former Tobacco user Tobacco use type: Cigarette Cigarette Packs Per Day: 1 Cigarettes Per Day: 10 Years Smoked: 40 Second Hand Smoke Exposure: Yes Substance Use Type: Marijuana service: No Current occupational status: employed Current occupation: [employer]/ left hand dominant Review of Systems Const Denies chills, Denies excessive sweating, Denies fever(s), Denies headache(s) and Denies night sweats Eyes Denies dry eyes, Denies irritation and Denies itchy eyes ENT Reports Normal hearing present and Denies headache(s) Card Denies chest pain, Denies chest pain at rest, Denies chest pain with activity, Denies claudication, Denies leg edema, Reports dyspnea on exertion, Denies orthopnea and Denies paroxysmal nocturnal dyspnea Resp Denies change in phlegm color, Reports chest congestion, Reports cough, Denies hemoptysis, Denies excessive phlegm production, Denies pain on inspiration, Denies pain with cough, Reports dyspnea on exertion, Denies stridor and Reports wheezing Musc Denies myalgias Neuro Reports Normal hearing present and Denies headache(s) Endo Denies excessive sweating Luisito/Lymph Denies lymphadenopathy Aller/Immun Denies itchy eyes, Denies seasonal rhinorrhea and Reports wheezing Physical Exam Exam Exam: Physical Exam - Vitals: Oxygen saturation is 88-90% on 3L of oxygen via nasal cannula at rest. - Respiratory: Auscultation reveals wheezing. Vital Signs: Last Vital Signs Pulse 106 H 09/22/25 09:29 BP 122/66 09/22/25 09:29 Pulse Ox 90 L 09/22/25 09:29 Oxygen Delivery Method Nasal Cannula 09/22/25 09:29 Oxygen Flow Rate 3 09/22/25 09:29 BMI result Body Mass Index 40.6 Const General: cooperative, no acute distress, well developed and alert Nutritional Appearance: obese Orientation/consciousness: patient oriented x3 HEENT Head: Yes normal to inspection, Yes normocephalic and Yes atraumatic Ears: hearing grossly normal bilaterally and external ears normal Eyes General: appearance normal, both eyes and all related structures Eyelids: Yes eyelids normal Sclerae: sclerae normal EOM: EOMs intact bilaterally Neck Neck: Yes normal visual inspection and Yes no lymphadenopathy Lymphatic: no lymphadenopathy noted Chest Chest palpation & inspection: normal inspection of the chest Resp Effort & Inspection: normal respiratory effort, able to speak in complete sentences, no audible wheezes, no cough, no stridor, not tachypneic, no tripod positioning and no use of accessory muscles Auscultation: no crackles, no rhonchi, wheezes and diminished lung sounds Cardio Jugular venous distension: no JVD Rate: regular rate Rhythm: regular rhythm Skin Other: warm, dry General skin exam: no rashes or lesions noted Neuro General: patient oriented x3 Cranial nerves: Yes Normal hearing present Cognition (Neuro): normal cognition Gait exam (Neuro): Normal gait present Extrem General: Yes normal to inspection, Yes capillary refill normal, Yes no clubbing, cyanosis or edema and Yes no pedal edema Psych Appearance: grossly normal and well kempt Speech and movement: Normal speech and movement present and Clear speech present Affect: normal affect Attitude: cooperative Thought process: Normal thought process present Thought content: Normal thought content present Insight: Good insight present (Psych) Judgement: Good judgement present (Psych) Assessment & Plan Assessment & Plan (1) COPD (chronic obstructive pulmonary disease): Code(s): J44.9 - Chronic obstructive pulmonary disease, unspecified Category: Medical Qualifiers: COPD type: COPD with acute exacerbation Qualified Code(s): J44.1 - Chronic obstructive pulmonary disease with (acute) exacerbation (2) Chronic respiratory failure with hypoxia: Code(s): J96.11 - Chronic respiratory failure with hypoxia Category: Medical (3) Nicotine dependence, cigarettes, uncomplicated: Code(s): F17.210 - Nicotine dependence, cigarettes, uncomplicated Category: Medical (4) Nocturnal hypoxemia: Code(s): G47.34 - Idiopathic sleep related nonobstructive alveolar hypoventilation Category: Medical (5) Loud snoring: Code(s): R06.83 - Snoring Category: Medical (6) Daytime somnolence: Code(s): R40.0 - Somnolence Category: Medical Plan Discussed with the patient that her current symptoms of increased shortness of breath, congestion, and wheezing indicate a COPD exacerbation. Will prescribe a course of prednisone and an antibiotic, doxycycline, to manage this. We reviewed her medication use, and advised her to limit nebulizer treatments to three times daily to avoid excessive albuterol exposure. Advised patient to maintain oxygen saturation >90% using 2-3 L supplemental oxygen, if oxygen demand increased, seek emergent care. Reviewed the results of her overnight oximetry, explaining that her oxygen levels dropped for a total of 18 minutes and that she had 33 desaturation events, which is suggestive of sleep apnea. Recommended an in-lab sleep study for a definitive diagnosis, explaining that an inpatient setting is preferable due to her baseline oxygen need. Explained that her elevated BNP level of 528 during her recent hospitalization suggests her heart may be under strain, will order an ultrasound of her heart to further investigate. Emphasized that untreated sleep apnea can also contribute to heart problems. We will proceed with a full workup including the heart ultrasound, sleep study, a CT scan which is already scheduled, and a pulmonary function test, which she needs to schedule. Advised the patient to go to the emergency room if her symptoms worsen and to follow up in my office in six weeks to review the results of these tests. All questions were answered and patient is in agreement of plan. Patient Instructions - Start taking the prednisone as prescribed. - You will take this for 12 days, and the dose will decrease every 3 days. - Start taking the antibiotic doxycycline as prescribed. - Continue to use your Trelegy inhaler every day. - Reduce your use of the nebulizer to a maximum of 3 times per day. - When you sleep, increase your oxygen to 2.5 liters. - Please continue to not smoke. - Remember your CT scan is scheduled for October 01. - You will need to call to schedule your breathing test (PFT), phone number given for CS today. - My office will schedule an ultrasound of your heart and an overnight sleep study for you. - You will get a call to schedule these appointments. - If your breathing gets worse or you feel very sick, go to the nearest emergency room. - Please schedule a follow-up visit with our office in about 6 weeks. Patient was informed and verbally consented to the use of an ambient scribe for clinic note documentation during this visit. Orders: Orders CA echo transthoracic complete Today R06.09 - Other forms of dyspnea RT PSG in-lab sleep study Today G47.34 - Idiopathic sleep related nonobstructive alveolar hypoventilation, R06.83 - Snoring, R40.0 - Somnolence Medications: New doxycycline hyclate 100 mg PO BID 20 caps 0RF prednisone see taper instructions; 40 mg Daily x3 days, 30 mg daily x3 days, 20 mg daily x3 days, 10 mg daily x3 days 10 mg PO DIRECTED 30 tabs 0RF Coding Level of Care Code Est Pt Level 4 (59303) Add On Problem Visit Only Diagnoses COPD (chronic obstructive pulmonary disease) J44.1 COPD type: COPD with acute exacerbation Chronic respiratory failure with hypoxia J96.11 Nicotine dependence, cigarettes, uncomplicated F17.210 Nocturnal hypoxemia G47.34 Loud snoring R06.83 Daytime somnolence R40.0
[2025-09-22 09:29] VITALS: BP 122/66; PULSE 106; O2SAT 90; BMI 40.6
--- OUTSIDE RECORDS SUMMARY | 2025-09-22 09:40 | XMS_ITS | Data Portability ---
Author Organization [facility], Telehealth Patient Home Address [address] [place] [address] Assessment No assessment recorded. Plan of Treatment Reminders Order Date Submit Date Provider Last Modified By Organization Details Last Modified Time Details Appointments None recorded. Lab uric acid, serum or plasma 2024 025 [facility], [address] [place] [address], [address], 09:43:02 urinalysis complete, reflex culture 2024 025 [facility], [address] [place] [address], 175[address], 09:43:01 hemoglobin A1c, QN, blood 2024 025 [facility], [address] [place] [address], [address], 5 09:43:02 vitamin B12 + folate, serum or blood 2024 025 [facility], [address] [place] [address], 9[address], 5 09:43:02 iron + TIBC + ferritin, serum 2024 025 [facility], [address] [place] [address], 984[address], 09:43:01 CMP, serum or plasma 2024 025 [facility], [address] [place] [address], 29[address], 5 09:43:01 CBC w/ auto diff 2024 025 [facility], [address] [place] [address], 87[address], 5 09:43:01 magnesium, serum or plasma 2024 025 [facility], [address] [place] [address], 159[address], 5 09:43:01 ESR (erythrocy te sedimentat ion rate), blood 2024 025 [facility], [address] [place] [address], 659[address], 5 09:43:02 C-reactive protein, quantitati ve, serum or plasma 2024 025 [facility], [address] [place] [address], 67[address], 5 09:43:02 TSH + free T4, serum 2024 025 [facility], [address] [place] [address], 928[address], 5 09:43:02 lipid panel, serum 2023 024 [facility], [address] [place] [address], 85[address], 4 11:05:54 CBC w/ auto diff 2023 024 [facility], [address] [place] [address], 099[address], 4 11:05:54 CMP, serum or plasma 2023 024 [facility], [address] [place] [address], 14[address], 4 11:22:06 urinalysis complete, reflex culture 2023 024 [facility], [address] [place] [address], 18[address], 4 11:01:07 iron + TIBC + ferritin, serum 2023 024 [facility], [address] [place] [address], [address], 4 11:05:54 vitamin B12 + folate, serum or blood 2023 024 [facility], [address] [place] [address], 409[address], 4 11:05:54 homocystei ne, serum or plasma 2023 024 [facility], [address] [place] [address], [place], [address], 4 11:17:29 TSH + free T4, serum 2023 024 [facility], [address] [place] [address], 8[address], 4 11:06:30 Referral dermatolog ist referral 2024 025 [email or web address] 10 [facility], [address] [place] [address], [address], 5 10:01:06 pulmonolog ist referral 2023 024 [email or web address] Supa Sullivan MD, [address] [place] [address] [place], [address], 4 14:25:12 Procedures None recorded. Surgeries None recorded. Imaging XR, knee, 3 view 2024 025 [facility] (Imaging), [address] [place], [address], 5 08:31:09 PFT, complete - [id number] 03/04/24-09/16 024 [facility], [address] [place], [address], 4 08:41:34 XR, chest, 2 view 2022 023 [facility] (Imaging), [address] [place], [address], 3 08:40:25 Medication Orders Myrbetriq 25 mg tablet,ext ended release 2023 024 [facility] [address] [facility] [place], [address], 4 10:54:00 prednisone 10 mg tablet 2023 024 [facility], [address] [facility] [place], [address], 4 10:54:41 Wellbutrin XL 150 mg 24 hr tablet, extended release 2022 023 dru [facility]0693, [address] [facility] [place], [address], 4 09:07:42 prednisone 10 mg tablet 2022 023 [email or web address] #0693, [address] [place], [address], 4 10:32:59 levofloxac in 500 mg tablet [address]/Pharmacy #0693, [address] [place], [address], 4 10:32:44 duloxetine 60 mg capsule,de layed release 2022 023 [facility], [address] [facility] [place], [address], 3 10:18:19 prednisone 10 mg tablet 2022 023 [email or web address] [facility] [address] [facility] [place], [address], 4 10:32:59 Zithromax Z-Tim 250 mg tablet 2022 023 [facility], [address] [facility] [place], [address], 3 14:12:12 albuterol sulfate HFA 90 mcg/actuat ion aerosol inhaler 2022 023 [facility] [address] [facility] [place], [address], 4 14:51:15 lorazepam 0.5 mg tablet 2022 023 [facility], [address] [facility] [place], [address], 3 11:51:57 oxybutynin chloride ER 5 mg tablet,ext ended release 24 hr 2022 023 [facility], [address] [place], [address], 4 10:50:31 Patient TargetsNo targets recorded. Patient InstructionsNo instructions recorded. 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 [email or web address] [facility] (Medical Records) [address] [place], [address], 05/31/2023 11:13:40 02/15/20 24 02/15/2024 XR, chest , 1 view No observ ation record ed. [email or web address] [facility] (Medical Records) [address] [place], [address], 02/18/2024 08:30:04 02/16/20 24 02/16/2024 XR, chest , 1 view No observ ation record ed. [email or web address] (Medical Records) [address] [place], [address], 02/18/2024 08:30:20 10/07/19 25 10/05/2024 XR, chest , 2 view No observ ation record ed. [email or web address] [facility] (Medical Records) [address] [place], [address], 10/07/2024 09:20:31 11/01/19 25 11/01/2024 XR, shoul aleks, 2 or more view No observ ation record ed. [email or web address] [facility] (Medical Records) [address] [place], [address], 11/02/2024 08:33:01 12/29/1912/24/2024 MAMMO , scree guzman, digit al, bilat eral No observ ation record ed. [email or web address] [facility] [address] [place], [address], 12/29/2024 08:15:55 03/30/20 25 03/30/2025 XR, knee, 3 view No observ ation record ed. [email or web address] [facility] (Medical Records) [address] [place], [address], 03/30/2025 10:01:49 03/30/20 25 03/30/2025 XR, knee, 3 view No observ ation record ed. [email or web address] [facility] (Medical Records) [address] [place], [address], 03/30/2025 10:01:50 04/27/20 25 04/27/2025 CT, chest , w/o contr ast No observ ation record ed. [facility] (Medical Records) [address] [place], [address], 04/27/2025 09:36:37 05/06/20 25 05/06/2025 CT, head + brain , w/o contr ast No observ ation record ed. [email or web address] [facility] (Medical Records) [address] [place], [address], 05/07/2025 08:40:24 05/30/20 25 05/30/2025 CT, chest + abdom en + pelvi s, w/o contr ast No observ ation record ed. [email or web address] [facility] (Medical Records) [address] [place], [address], 05/31/2025 08:12:45 05/31/20 25 05/31/2025 CT, angio gram, chest , w/ contr ast No observ ation record ed. [email or web address] [facility] (Medical Records) [address] [place], [address], 05/31/2025 13:24:46 06/28/20 25 06/28/2025 XR, chest , 2 view No observ ation record ed. [facility] (Medical Records) [address] [place], [address], 06/28/2025 16:59:56 06/28/2006/28/2025 XR, chest , 2 view No observ ation record ed. [facility] (Medical Records) [address] [place], [address], 06/28/2025 17:00:09 07/26/20 25 07/26/2025 XR, chest , 2 view No observ ation record ed. [facility] (Medical Records) [address] [place], [address], 07/26/2025 13:56:16 08/15/20 25 08/15/2025 XR, chest , 2 view No observ ation record ed. [facility] (Medical Records) [address] [place], [address], 08/16/2025 08:17:58 Result Notes None recorded. Problems Name Problem SNOMED Code Status Onset Date Resolution Date Notes Provider Name and Address Organization Details Recorded Time Asthma 163901719 [facility] [place] 8 10:31:25 Gastroeso phageal reflux disease 352359358 Active 2017 Stacie mcginnis [facility] 8 10:31:31 Bipolar disorder 52415321 Active 2017 Otilia Santo NP, S [address] [place] [address], [address], [facility] 8 10:56:03 Depressiv e disorder 47380736 Active 2017 Otilia Santo NP, S [address] [place] [address], [address], [facility] 8 10:56:12 Temporoma ndibular joint disorder 63069632 Active 2019 Daljit Irby, [address] [place] [address], [address], [facility] 0 11:11:51 Carpal tunnel syndrome of right wrist 226873707743 108 Active 2019 Daljit Irby, DO [address] [place] [address], [address], [facility] 0 11:12:02 Chronic obstructi ve pulmonary disease 72011956 Active 2021 Daljit Irby, DO [address] [place] [address], [address], [facility] 2 10:56:45 Multiple gastric ulcers 524073135 Active 2021 Daljit Irby, DO [address] [place] [address], [address], [facility] 2 10:57:21 Insomnia 915736283 Active 2021 Daljit Irby DO [address] [place] [address], [address], [facility] 2 10:59:47 Panic disorder 774931929 Active 2021 Daljit Irby, DO [address] [place] [address], [address], [facility] 2 11:01:07 Moderate recurrent major depressio n 55889026 Active 2021 TANNER LOCKE [address] [place] [address], [address], [facility] 2 11:43:50 Anxiety 74703988 Active 2021 TANNER LOCKE [address] [place] [address], [address], [facility] 2 12:22:43 Melena 6808166 Active 2021 TANNER LOCKE [address] [place] [address], [address], [facility] 2 10:33:58 Cobalamin deficienc y 161088791 Active 2021 TANNER LOCKE [address] [place] [address], [address], [facility] 2 10:34:46 Iron deficienc y anemia 66347447 Active 2021 TANNER LOCKE [address] [place], [address], [facility] 2 12:03:20 Injury of knee 300825370 Active 2022 TANNER LOCKE [address] [place] [address], [address], [facility] 3 13:56:04 Injury of knee 766572517 Active 2022 TANNER LOCKE [address] [place] [address], [address], [facility] 3 13:56:09 Swelling of knee joint 531944993 Active 2022 TANNER LOCKE [address] [place] [address], [address], [facility] 3 13:57:51 Infected bursa 399134846 Active 2022 TANNER LOCKE [address] [place] [address], [address], [facility] 3 10:28:39 Hematoma of right lower leg 324210874990 47145 Active 2022 TANNER LOCKE [address] [place] [address], [address], [facility] 3 10:29:45 Prepatell ar bursitis of right knee 943989986630 100 Active 2022 Daljit Irby DO [address] [place] [address], [address], [facility] 3 14:11:50 Infection of prepatell ar bursa of right knee 958221985079 9105 Active 2022 Daljit Irby DO [address] [place] [address], [address], [facility] 3 14:12:07 Exacerbat ion of moderate persisten t asthma 723398369 Active 2022 TANNER LOCKE [address] [place], [address], [facility] 3 11:47:09 Urinary incontine nce 808209253 Active 2022 TANNER LOCKE [address] [place], [address], [facility] 3 11:48:56 Acute bronchiti s with bronchosp asm 84601068 Active 2022 TANNER LOCKE [address] [place] [address], [address], [facility] 3 10:18:40 Smoker 04462602 Active 2022 TANNER LOCKE [address] [place] [address], [address], [facility] 3 10:20:27 Pneumonia 481450622 Active 2022 TANNER LOCKE [address] [place] [address], [address], [facility] 5 10:14:28 Tardive dyskinesi a 935539737 Active 2023 TANNER LOCKE [address] [place] [address], [address], [facility] 4 09:52:31 Hyperlipi demia 92001500 Active 2023 TANNER LOCKE [address] [place] [address], [address], [facility] 4 10:52:48 Dyspnea 268692735 Active 2023 TANNER LOCKE [address] [place] [address], [address], [facility] 4 10:54:03 Acute respirato ry failure 92699446 Active 2023 TANNER LOCKE [address] [place] [address], [address], [facility] 4 15:06:47 Mood disorder 99034231 Active 2023 TANNER LOCKE [address] [place], [address], [facility] 4 15:11:46 Acute bronchiti s 14231131 Active 2024 TANNER LOCKE [address] [place], [address], [facility] 5 10:23:01 Pain of knee region 5097355622 Active 2024 TANNER LOCKE [address] [place] [address], [address], [facility] 5 09:35:43 Increased frequency of urination 857981269 Active 2024 TANNER LOCKE [address] [place] [address], [address], [facility] 5 09:38:11 Bilateral lower limb edema 306052687 Active 2024 TANNER LOCKE [address] [place] [address], [address], [facility] 5 09:38:54 Basal cell carcinoma of upper eyelid 314697957 Active 2024 TANNER LOCKE [address] [place] [address], [address], [facility] 5 09:43:50 Acute exacerbat ion of chronic obstructi ve pulmonary disease 979077633 Active 2024 TANNER LOCKE [address] [place] [address], [address], [facility] 5 09:45:02 Problem Notes None recorded. Procedures Surgical History Date Name Laterality Status Provider Name and Address Organization Details Recorded Time 5 Most Recent Mammogram completed Patsy Estrada [facility] 12/29/2024 08:15:39 01/14/201 5 Colonoscopy [...] 1 TABLET BY MOUTH EVERYDAY AT BEDTIME needs appt for further refills. call office 2024 active Not Available Not Available Not Avai lable cyclobenzap rine 10 mg tablet TAKE 1 [...] TAKE 1 TABLET BY MOUTH EVERY DAY needs appt for [...] Updated DateTime 4 157.48 cm 29.2 kg/m2 58077.4 2 g 111 /min 98 % 134/84 mm[Hg] Patsy Estrada [facility] 4 10:35:07 Date Recorded Body height Body mass index (BMI) Body weight Heart rate Oxygen saturation Systolic And Diastolic Provider Name and Address Organization Details Last Updated DateTime 3 157.48 cm 35.8 kg/m2 85514.1 g 86 /min 92 % 148/80 mm[Hg] Court De La Rosa [facility] 3 11:32:57 Date Recorded Body height Body mass index (BMI) Body weight Systolic And Diastolic Provider Name and Address Organization Details Last Updated DateTime 03/02/2024 157.48 cm 29.8 kg/m2 75034.56 g 128/80 mm[Hg] Courtgemma Choudharymond [facility] 03/02/2024 14:46:35 Date Recorded Oxygen saturation Provider Name and Address Organization Details Last Updated DateTime 03/17/2025 87 % Manan Bosch O [address] [place] [address], [address], [facility] 04/20/2025 15:14:45 Date Recorded Oxygen saturation Heart rate Systolic And Diastolic Provider Name and Address Organization Details Last Updated DateTime 03/17/2025 93 % 68 /min 110/74 mm[Hg] SVITLANA WILEY [facility] 03/17/2025 09:26:23 Date Recorded Body height Body mass index (BMI) Body weight Heart rate Oxygen saturation Systolic And Diastolic Provider Name and Address Organization Details Last Updated DateTime 157.48 cm 35.8 kg/m2 66776.1 g 94 /min 92 % 138/80 mm[Hg] Court De La Rosa [facility] 3 10:09:27 Social History Question Answer Notes LastModified by Organizat ion Details LastModified Time Tobacco Smoking Status Current Every Day Smoker Not Available [facility] 07/26/2020 03:36:23 What Was The Date Of Your Most Recent Tobacco Screening? 03/02/2024 [email or web address] Information not available 03/02/2024 How Much Tobacco Do You Smoke? 1 PPD 5/6 Per Day [email or web address] Information not available 03/17/2025 Sex: Unknown Functional Status Question Answer Note LastModified by Organization D etails LastModified Time Do you or have you ever used any other forms of tobacco or nicotine? No [email or web address] Information not available 05/24/2023 Mental Status None recorded. Family History Nothing Reported. Medical History No medical history recorded. Gynecological History Statement/Question Response Most Recent Mammogram 12/24/2024 Obstetrics History GPAL:G 0 P 0 0 0 0 Immunizations Vaccine Type Date Status Note Provider Nam e and Address Organization Details Recorded Time COVID-19 vaccine, vector-nr, rS-Ad26, PF, 0.5 mL 01/28/2021 [facility] 08:36:41 Past Encounters Encounter ID Performer Location Encounter Start Date Encounter Closed Date Diagnosis/Indication Diagnosis SNOMED-CT Code Diagnosis ICD10 Code Diagnosis IMO Codes Diagnosis Note [id number] Daljit Irby [facility] [address] [facility],[place] [address] 03/19/2018 10:27:43 03/19/2018 16:04:47 Acute bronchitis 82069925 J20.9 Tobacco de pendence syndrome 12344468 F17.200 [id number] Daljit Irby [address], [place] [address] 07/11/2018 11:15:15 07/11/2018 13:37:08 Asthma 504953298 J45.909 worse with this infection so will need pred taper Pneumonia 474854406 J18. 9 treated with abx [id number] Daljit Irby [facility] [address] [facility], [place] [address] 10/05/2019 11:00:17 10/05/2019 11:21:04 Asthma 959558079 J45.909 has been stable and is ok here Carpal jonathan shoaib syndrome of right wrist 7195400769 43572 G56.01 will cont the ibuprof Temporoman dibular joint disorder 10043937 M26.609 will cont the ibuprof Screening mammography 24 488043 Z12.31 Adult heal th examination 418981409 Z00.00 Tobacco de pendence syndrome 43202131 F17.200 [id number] Daljit Irby [address], [place] [address] 12/20/2021 10:25:58 12/20/2021 13:56:24 Chronic obstructive pulmonary disease 85843786 J44.9 we are going to begin her on trelegy will follow up in a few weeks samples of 200mg dose given Gastroesop hageal reflux disease 094886811 K21.9 seems stable Depressive disorder 3548 9007 F32.A follows her psychiatri st Multiple g astric ulcers 943943599 K25.9 had a signif icant bleed with hgb down to 7 we will order cbc and rechj uin 1 month Insomnia 703271248 G47.0 0 Panic disorder 524148135 F41.0 we will provide temporary lorazepam [id number] Daljit Irby [facility] [address] [facility] [address] [address] 12/27/2021 11:18:02 01/01/2022 08:30:58 Insomnia 526843553 G47.09 will fu if still having issues picking Moderate r ecurrent major depression 29391415 F33.1 will start on sertraline and resubmit seroquel dosage [id number] Daljit Irby [facility] [address] [facility],[email or web address] [address] 12/29/2021 10:30:37 01/01/2022 12:14:24 Bipolar disorder 27883748 F31.0 stable Depressive disorder 3548 9007 F32.0 improved Anxiety 39857072 F41.1 improved [id number] Daljit Irby [facility] [address] [facility] [address],[place] [address] 01/19/2022 11:02:49 01/19/2022 11:47:03 Active or passive immunization 174374669 Z23 will consider shingles and Tdap Panic disorder 637121658 F41.0 lorazepam was not too helpful Chronic ob structive pulmonary disease 79421365 J44.9 we are going to begin her on trelegy will follow up in a few weeks samples of 200mg dose givenseems to be helping she is breathing better Anxiety 38137997 F41.9 as above she is doing ok overall and id feeling betterwe discussed the poss of new med for the bipolar she will need to sidcuss with her psych (caplyta) Temporoman dibular joint disorder 55078951 M26.609 will cont the ibuprof [id number] Daljit Irby [facility] [address] [facility] [address],[place] [address] 03/23/2022 08:40:47 03/23/2022 14:10:34 Melena 4815645 K92.1 will start work up for melena Cobalamin deficiency 190 986132 E53.8 needs refill Insomnia 849044048 G47.0 9 stable on medication Moderate r ecurrent major depression 35976069 F33.1 refill Gastroesop hageal reflux disease 889347048 K21.00 increase to 40 mg of omeprazole until source of bleed can be determined [id number] Daljit Irby [facility] [address] [facility] [address], [place] [address] 07/25/2022 08:54:50 07/25/2022 12:22:55 Asthma 706478854 J45.40 will start on neb with solution Moderate r ecurrent major depression 21964832 F33.1 refill needed Insomnia 895247257 G47.0 9 stable on medication Iron defic iency anemia 54672806 D50.0 will refill for patientdid call it in but haven't gotten a refill request yet [id number] Daljit Irby [facility] [address] [facility] [address], [place] [address] 10/10/2022 13:26:14 10/10/2022 16:09:00 Injury of knee 863834116 S89.91XA will fu with repeat XR in two weeks Swelling o f knee joint 359603772 M25.462 will start dual treatment with pred and tramadol Chronic ob structive pulmonary disease 07126629 J41.8 given samplestre debora works really well for her [id number] Daljit Irby [facility] [address] [facility] [address] [employer] [place] [address] 10/15/2022 14:34:37 10/15/2022 16:06:12 Injury of knee 227621784 S89.91XA still too much swelling US knee Swelling o f knee joint 680128467 M25.462 severe swellingun able to drain any fluid off the patientjus t bleeding Chronic ob structive pulmonary disease 78888067 J41.8 given samplestre debora works really well for her [id number] Daljit Irby [facility] [address] [facility],[place] [address] 11/30/2022 13:40:24 11/30/2022 15:58:43 Moderate recurrent major depression 55454269 F33.1 as noted no major changes Screening mammography 24 774236 Z12.31 Prepatella r bursitis of right knee 7369725350 50253 M70.41 MUST be seen by a competent ortho Infection of prepatellar bursa of right knee 6861161681 306224 M71.161 appears now to have a superficia l cellulitic appearance now spreading [id number] Daljit Irby [facility] [address] [facility],[place] [address] 02/25/2023 11:05:10 02/25/2023 13:13:36 Asthma [id number] J45.40 will start on neb with solution Exacerbati on of moderate persistent asthma 412013353 J45.41 will start on standard treatment Moderate r ecurrent major depression 76024699 F33.1 refill needed Urinary incontinence 165 153769 N39.42 [id number] Daljit Irby [facility] [address] [facility],[place] [address] 05/24/2023 10:06:01 05/24/2023 11:27:12 Depressive disorder 92361703 F32.0 stable Acute bron chitis with bronchospasm 41949052 J20.9 will set up with prednisone + levoCOVID test negative Smoker 69639868 F17.200 will start on wellbutrin for smoking [id number] Daljit Irby [facility] [address] [facility],[place] [address] 02/10/2024 10:22:57 02/10/2024 14:11:54 Urinary incontinence 026617608 N39.42 will switch out medication and fu with kidney and urine check Depression screening 171 696738 Z13.31 negative score Cobalamin deficiency 190 819117 E53.8 needs refill Iron defic iency anemia 00057982 D50.0 will refill for patientdid call it in but haven't gotten a refill request yet Hyperlipidemia 32588673 E78.2 will set up with recheck blood work Chronic ob structive pulmonary disease 54096616 J41.8 given samplestre debora works really well for her Dyspnea 102190545 R06.00 will set up with pred taper [id number] Daljit Irby [facility] [address] [facility],[place] [address] 03/02/2024 14:34:00 03/03/2024 14:25:12 Depressive disorder 79264546 F32.0 F33.1 stable Mood disorder 58995609 F 31.0 stable Acute resp iratory failure 16242289 J96.00 stable Chronic ob structive pulmonary disease 66469857 J44.1 will f/u with pulm for evalordere d the PFT per pulm [id number] Daljit Irby [facility] [address] [facility],[place] [address] 03/17/2025 09:13:58 03/17/2025 10:24:07 Pain of knee region 8524096942 M25.561 M25.562 [id number] still too much swelling US knee Increased frequency of urination 166595990 R35.0 97591 Bilateral lower limb edema 721494763 R60.0 [id number] will set up with lab work Cobalamin deficiency 190 707394 E53.8 needs recheck blood work Iron defic iency anemia 76474102 D50.0 needs recheck BW Basal cell carcinoma of upper eyelid 245336682 C44.1121 [id number] will set up with derm for evaluation Health Concerns Section Related Observation LastModified by Organization Detai ls LastModified Time None Recorded Concern Status LastModified by Organization Details LastModified Time None Recorded Advance Directives Directive None Recorded Payers Insurance Date Sequence Insurance Name Policy Number Policy Chairez Covered Member ID Chairez Member ID Guarantor Name 04/06/2025 PAYMENT PLAN Lissette Sanches 03/17/2025 1 [place] [facility] PRIOR TO 12/22/2022 - [facility] (MEDICAID) Lissette Sanches [id number] Lissette Sanches 03/17/2025 1 [facility] [id number] Lissette Sanches [id number] Lissette Sanches 03/17/2025 1 [place] [facility] Lissette Sanches [id number] Lissette Sanches 12/20/2021 1 *SELF PAY* Ba gilberto Sanches 07/06/2025 1 [employer] (EPO) [id number] Lissette Sanches [id number] Lissette Sanches Notes Date Note Type Note [...] if it is effective [facility] [address] [place], [address], [facility] 02/25/2023 11:58:55 3 text/html ROS as noted in the HPI c/o pneumonia patient has hx of smokingrecurrent pneumonia, hx of COPDhaving exacerbation with probable bronchitis start on steriods and abx cont inhalers at home [facility] [address] [place], [address], [facility] 05/24/2023 10:31:11 4 [...] given order for it [facility] [address] [place], [address], [facility] 02/10/2024 11:01:05 4 text/html ROS [...] pulm approval using her inhalers correctly [facility] [address] [place], [address], [facility] 03/02/2024 15:15:46 5 text/html ROS as noted in the [facility] f/u medications the patient has bilateral knee [...] to check her levels Daljit Irby, [address] [place], [address], [place] [facility] 04/20/2025 15:15:30 OBGyn Episode No OBEpisode recorded.
== END 2025-09-22 09:53 | disposition home or self-care (01) ==
LOC: HO.HPSW 09:23
PROVIDERS: PCP Internal Medicine; Visit Provider Nurse Practitioner Family
DX: J44.1 Chronic obstructive pulmonary disease with (acute) exacerbation (principal); J96.11 Chronic respiratory failure with hypoxia; F17.210 Nicotine dependence, cigarettes, uncomplicated; G47.34 Idiopathic sleep related nonobstructive alveolar hypoventilation; R06.83 Snoring; R40.0 Somnolence
CPT/HCPCS: 99214; G2211